=== PATIENT | female | born 1970 | race Caucasian/White ===

== ENCOUNTER → 2019-02-23 14:11 | Outpatient (CLI) | payer OTHER, SELFPAY ==
[2019-02-28 14:39] LABS: HPV Reflexed? NOT INDICATED
== END ==
PROVIDERS: Visit Provider Obstetrics & Gynecology
DX: Z12.4 Encounter for screening for malignant neoplasm of cervix (principal)
CPT/HCPCS: 88175; G0145

== ENCOUNTER → 2020-06-18 09:47 | Outpatient (CLI) | payer OTHER, SELFPAY ==
[2016-03-03 10:50] VITALS: BMI 27.6
== END ==
PROVIDERS: PCP Family Medicine; Referring Provider Nurse Practitioner Adult Health; Visit Provider Nurse Practitioner Adult Health
DX: N39.0 Urinary tract infection, site not specified (principal)
CPT/HCPCS: 87086

== ENCOUNTER → 2021-03-26 07:02 | Outpatient (CLI) | payer BC, SELFPAY ==
--- NOTE | 2021-03-26 07:06 | BI_ITS ---
MAMMOGRAPHY - BILATERAL SCREENING REASON FOR EXAM: Female, 50 years old. Routine annual screening examination. PERTINENT HISTORY: Non-contributory. TECHNIQUE: Digital bilateral breast wiliam (3D mammographic acquisition) in the CC and MLO projections. 2-D mediolateral oblique (MLO) and craniocaudad (CC) views of both breasts were obtained. CAD: Full Field Digital Mammography with Computer Added Detection was performed. COMPARISON: Comparison is made with prior abdomen examination dated 04/04/2013. FINDINGS: Breast Composition: The breasts are heterogeneously dense, which may obscure small masses. There is a 4.2 cm x 4.1 cm well-defined nodule in the upper lateral aspect of the left breast. There is also evidence of a 1.4 cm x 1.4 cm nodule in the lateral retroareolar region of the right breast. Correlation with ultrasound is recommended for further evaluation. No other significant abnormalities are identified. BI/SCRN MAMM (CAD)W/WILIAM BILAT IMPRESSION: Bilateral breast nodules as described more prominent in the left breast. Correlation with ultrasound is recommended. ASSESSMENT CATEGORY: BIRADS Category 0: Incomplete. Need additional imaging evaluation. A letter regarding these results will be sent to the patient by the facility within 30 days. Approximately 10% of breast cancers are not detected by mammography. A normal mammogram should not delay biopsy of a clinically suspicious abnormality. [id number] Electronically Signed: Rashaad Berman MD at 14:25 EDT , Service support ,
== END ==
PROVIDERS: PCP Family Medicine; Referring Provider Obstetrics & Gynecology; Visit Provider Obstetrics & Gynecology
DX: Z12.31 Encounter for screening mammogram for malignant neoplasm of breast (principal)
CPT/HCPCS: 77063; 77067

== ENCOUNTER → 2021-03-27 13:53 | Outpatient (CLI) | payer BC, SELFPAY ==
--- NOTE | 2021-03-27 13:55 | US_ITS ---
STUDY: ULTRASOUND BREAST - RIGHT REASON FOR EXAM: Female, 50 years old. Abnormal screening mammogram. TECHNIQUE: Axial and longitudinal images of the RIGHT breast were performed with a high resolution ultrasound transducer. # OF IMAGES: 19 COMPARISON: Comparison is made with prior mammogram dated 03/26/2021. FINDINGS: RIGHT Breast: The mammographic abnormality corresponds to a 1.3 cm x 1.6 cm x 1.1 cm cyst at the 8 o''clock position of the breast at 2 cm from the nipple. IMPRESSION: The mammographic abnormality corresponds to a 1.3 cm x 1.6 cm x 1.1 cm cyst at the interclavicular position of the breast at 2 cm from the nipple. ASSESSMENT CATEGORY: BIRADS Category 2: Benign. A letter regarding these results will be sent to the patient by the facility within 30 days. Electronically Signed: Rashaad Berman MD at 14:55 EDT , Service support , STUDY: ULTRASOUND BREAST - LEFT REASON FOR EXAM: Female, 50 years old. Abnormal screening mammogram. TECHNIQUE: Axial and longitudinal images of the LEFT breast were performed with a high resolution ultrasound transducer. # OF IMAGES: 19 COMPARISON: Comparison is made with prior mammogram dated 03/26/2021. FINDINGS: LEFT Breast: The mammographic abnormality corresponds to a 3.7 cm x 3.3 cm x 1.6 cm cyst at the 1 o''clock position of the breast at 1 cm from the nipple US/Breast Limited Unilateral IMPRESSION: The mammographic abnormality corresponds to a 3.7 cm x 3.3 cm x 1.6 cm cyst at the 1 o''clock position of the breast at 1 cm from nipple. ASSESSMENT CATEGORY: BIRADS Category 2: Benign. A letter regarding these results will be sent to the patient by the facility within 30 days. Electronically Signed: Rashaad Berman MD at 14:56 EDT , Service support ,
== END ==
LOC: OPUS 13:53
PROVIDERS: PCP Family Medicine; Referring Provider Obstetrics & Gynecology; Visit Provider Obstetrics & Gynecology
DX: N63.21 Unspecified lump in the left breast, upper outer quadrant (principal); N63.41 Unspecified lump in right breast, subareolar
CPT/HCPCS: 76642

== ENCOUNTER 2021-10-12 12:21 | Emergency (ER) | payer BC, SELFPAY ==
[2021-10-12 12:22] VITALS: BP 123/84; PULSE 108; RESP 16; TEMP 38; O2SAT 99; BMI 25.9
--- NOTE | 2021-10-12 12:57 | RAD_ITS ---
STUDY: X-RAY CHEST REASON FOR EXAM: Female, 50 years old patient with fever and cough TECHNIQUE: Single AP portable view of the chest. COMPARISON: 01/04/2014. FINDINGS: Lungs are hyperexpanded. There is diffuse interstitial thickening present in both lungs. There is no demonstrated pleural abnormality. Normal size heart. Normal mediastinum and jeffry. There is prominence of the pulmonary hilar arteries without peripheral pulmonary vascular congestion. Normal visualized aortic arch and descending thoracic aorta. Normal visualized thoracic spine. Normal visualized ribs, clavicles, and shoulders. There is no demonstrated abnormality of the visualized soft tissue structures of the upper abdomen. RAD/Chest 1 View (Portable) IMPRESSION: Findings suggest acute exacerbation of reactive airway disease and/or viral infection. Electronically Signed: Rachelle Flaherty MD at 14:46 EST , Service support ,
--- NOTE | 2021-10-12 12:57 | CT_ITS ---
STUDY: CT BRAIN WITHOUT CONTRAST REASON FOR EXAM: Female, 50 years old patient with headache. RADIATION DOSAGE (If Supplied By Facility): CTDIvol = ( 44.99 ) mGy, DLP = ( 779.24 ) mGycm TECHNIQUE: Transaxial CT imaging of the brain was performed without administration of intravenous contrast material. Multiplanar reformations are submitted for interpretation. Individualized dose optimization techniques were used for this CT. COMPARISON: No relevant priors. FINDINGS: Normal soft tissue structures. Normal calvarium. Normal size ventricles and extra-axial spaces for the patient''s age. Normal white matter tracts of the cerebral hemispheres. Normal basal ganglia and thalami. Normal brainstem. Normal cerebellum. There is no intracranial hemorrhage. There are no findings of an acute ischemic infarction. There is bubbly mucus in the sphenoid sinuses suggesting acute infection. There is also opacification several ethmoid sinuses. There is opacification of a hypoplastic left frontal sinus. There is mucosal thickening of the left maxillary sinus. CT/Brain/Head without Contrast IMPRESSION: 1. Moderately severe paranasal sinus disease. 2. No CT evidence of acute intracranial hemorrhage. Electronically Signed: Rachelle Flaherty MD at 15:36 EST , Service support ,
--- NOTE | 2021-10-12 12:58 | CT_ITS ---
STUDY: CT ABDOMEN AND PELVIS WITH CONTRAST REASON FOR EXAM: Female, 50 years old patient with fever and right-sided flank pain. RADIATION DOSAGE (If Supplied By Facility): CTDIvol = ( 17.25 ) mGy, DLP = ( 1678.82 ) mGycm TECHNIQUE: Transaxial images were obtained from the dome of the diaphragm to the symphysis pubis without oral contrast. 100 mL of IV Isovue-370 was administered. Sagittal and coronal images were reconstructed. Individualized dose optimization techniques were used for this CT. COMPARISON: CT abdomen and pelvis dated 11/18/2015. FINDINGS: There is small lucency in the right lower lobe that may represent small pneumatocele. Lung bases are otherwise clear. The visualized portions of the heart are within normal limits. There is a small cyst left lobe liver measuring approximately 1.8 x 1.4 x 1.3 cm. Normal gallbladder and extrahepatic biliary system. Normal spleen. Normal pancreas. Normal bilateral adrenal glands. There is severe right-sided hydronephrosis and moderate hydroureter. There is transition in caliber of the mid ureter suggesting a possible stricture. No ureteral calculi are visualized. There is enhancement of the castle of the right renal pelvis and ureter suggesting associated pyelitis and ureteritis. Delayed images document prompt excretion of contrast by the left kidney. There is some delayed excretion of contrast by the right kidney. There are nonobstructing left-sided renal calculi which measure up to 6.4 mm. Normal visualized stomach. There is no obvious dilated bowel, ascites or pneumoperitoneum. Small bowel has a grossly normal appearance. There is stool visible throughout the colon with scattered diverticula. The retrocecal appendix is visualized and appears normal. Normal abdominal aorta. There is venous distention of the inferior vena cava (IVC). Normal retroperitoneum. Normal urinary bladder. Normal visualized uterus. Normal abdominal wall. Normal osseous structures. CT/Abdomen/Pelvis W IV Cont ONLY IMPRESSION: 1. Findings suggest severe right-sided hydronephrosis and moderate hydroureter possibly secondary to ureteral stricture with associated acute inflammation and/or infection. 2. Nonobstructing left-sided renal calculus. Electronically Signed: Rachelle Flaherty MD at 15:32 EST , Service support ,
--- NOTE | 2021-10-12 13:02 | EX.ED.DYSGE1 ---
HPI History of Present Illness Chief Complaint: Flank Pain Informant: patient Narrative Narrative: Patient is a 50-year-old female with history of kidney stones, follows with Dr. Prabhakar, presenting with fever and flank pain. Patient states she started having sharp stabbing pain in her right flank that radiates around to her abdomen on , 2 days ago. She states the pain has been constant. She started taking ibuprofen and oxycodone she had leftover with no relief of her symptoms. Yesterday she started having sharp stabbing pain behind her left ear. States that is sharp for a second at a time but is been constant. She never had pain like this before. She does not state nausea but no vomiting. Denies any vision changes. States he is chronically constipated but denies any change in bowel habits. Patient states her fevers been as high as 100.4. Fever started last night. She notes she works in a [employer] and had 2 - test yesterday. Patient denies any cough or difficulty breathing. She reports she has had some mild pain underneath her left ribs intermittently. No other complaints at this time. [facility] Medical History (Updated 10/12/21 @ 17:[address] Sarahi Escoto DO) Hx of renal impairment Personal history of kidney stones Home Medications citalopram 20 mg PO DAILY 10/12/21 [History Last Taken Unknown] trazodone 100 mg PO QHS 10/12/21 [History Last Taken Unknown] Allergy/AdvReac Type Severity Reaction Status Date / Time meperidine HCl [From Demerol] Allergy Other Verified 10/12/21 13:29 morphine Allergy Rash Verified 10/12/21 13:29 oxycodone HCl [From Percocet] AdvReac Nausea Verified 10/12/21 13:29 Surgical History (Updated 10/12/21 @ 13:22 by Annabella Barcenas) History of Social History Smoking Status: Never smoker ROS ROS ED Constitutional Constitutional ED: Reports chills and fever(s) Eyes Eyes: Denies blurry vision or change in vision ENT ENT ED: Reports ear pain left; Denies rhinorrhea or sore throat Cardiovascular Cardiovascular: Denies chest pain or palpitations Respiratory/Chest Respiratory/Chest: Denies cough or dyspnea Gastrointestinal Gastrointestinal: Reports abdominal pain, constipation and nausea; Denies vomiting Genitourinary Genitourinary ED: Denies dysuria, hematuria or urinary frequency Musculoskeletal Musculoskeletal: Reports back pain and myalgias; Denies arthralgias Integumentary Denies rash Neurologic Neurologic: Reports headache(s); Denies paresthesias or weakness Psychiatric Psychiatric: Reports anxiety; Denies depression EXAM Physical Exam Const Vital Signs: 10/12/21 12:22 10/12/21 14:56 10/12/21 15:02 Temperature 100.4 F H 99.8 F H Temperature Source Temporal Oral Pulse Rate 108 H 104 H Respiratory Rate 16 18 Blood Pressure 123/84 H 128/73 H Blood Pressure Mean 97 91 Pulse Ox 99 97 Oxygen Delivery Method Room Air Room Air Positive well nourished and well developed Constitutional Narrative: Patient is tearful and in acute distress secondary to pain General Appearance ED: well developed HEENT Reports TM's clear and moist mucous membranes HEENT Narrative: Patient is a pinpoint area of tenderness inferior to the left upper rib. It is not over the mastoid area. There is no associated fluctuance or skin abnormalities with it. Negative for trauma Tympanic Membrane ED: Yes TM's clear Eyes PERRL and EOMs intact bilaterally Neck supple Neck Narrative: No nuchal rigidity. No midline tenderness. Normal range of motion. Chest Wall inspection of chest normal and palpation of chest normal Resp normal respiratory effort and clear to auscultation bilaterally Cardio regular rate, regular rhythm and no murmurs GI normal to inspection, nondistended, normoactive bowel sounds and non-tender Palpation: soft Back/Spine no CVA tenderness Back/Spine Narrative: Mild tenderness palpation of the bilateral lower lumbar spine Thoracic Spine / Upper Back: Negative for thoracic spinal tenderness Lumbar Spine / Lower Back: Negative for lumbar spinal tenderness Extremity normal to inspection Neuro oriented x3 and CN's II-XII intact bilaterally Sensorium / Orientation: alert Motor Exam: Negative for general weakness Psych mental status grossly normal Mood & Affect: anxious Skin no rashes or lesions noted and no wounds MDM MDM MDM Narrative Medical decision making narrative: Patient is a 50-year-old female presenting with fever and severe right-sided flank pain. She is also has a headache. Patient appears quite uncomfortable. Patient is febrile, tachycardic and has a leukocytosis of 14.9. Urine is highly concerning for infection. Her creatinine is at her baseline it is 1.16. Potassium is mildly low at 3.1. Cultures of blood and urine are pending. CT shows hydronephrosis with concerns of pyelonephritis and ureteral stricture. This is likely the cause of her infection and pain. Covid test is negative. Head CT obtained as patient is having area of pain behind her ear. Is not consistent with mastoiditis. It is too high and there is no associated erythema or tenderness of the mastoid bone. CT does show moderately severe paranasal sinus disease. We currently do not have IR or urology so I do think patient benefit from transfer to a hospital with these facilities. Patient might either require stenting for her ureteral stricture or a percutaneous nephrostomy tube. She started on IV Rocephin in the emergency room. She is given multiple dose of IV Dilaudid for pain control. Patient is given a liter of IV fluid. She does not meet criteria for septic shock and is not given a 30 cc/kg fluid bolus. Patient is transferred to [facility]. She accepted by Dr. Krause, urology. She will go to the ER. Report is given to Dr. Preciado in the ER. Lab Data Attestation: I reviewed the patient's lab results. Labs: Laboratory Results - last 24 hr 10/12/21 10/12/21 10/12/21 13:00 13:00 13:20 WBC 14.9 H RBC 4.60 Hgb 13.7 Hct 41.9 MCV 91.1 MCH 29.8 MCHC 32.7 RDW Std Deviation 41.1 RDW Coeff of Dion 12.5 Plt Count 262 MPV 11.5 Immature Gran % (Auto) 0.400 Neut % (Auto) 89.6 H Lymph % (Auto) 5.0 L Whitley % (Auto) 4.6 Eos % (Auto) 0.1 Baso % (Auto) 0.3 Absolute Neuts (auto) 13.4 H Absolute Lymphs (auto) 0.75 L Nucleated RBC % 0 Sodium 139 Potassium 3.1 L Chloride 105 Carbon Dioxide 25.0 Anion Gap 9 BUN 9 Creatinine 1.16 H Estim Creat Clear Calc 51.22 Est GFR (MDRD) Af Amer 64 Est GFR (MDRD) Non-Af 53 L BUN/Creatinine Ratio 7.8 L Glucose 157 H Lactic Acid 2.0 Calcium 9.1 Total Bilirubin 0.30 AST 14 L ALT 28 Alkaline Phosphatase 68 Total Protein 7.4 Albumin 3.3 Globulin 4.1 Albumin/Globulin Ratio 0.8 L Lipase 273 Urine Color Urine Clarity Urine pH Ur Specific [place] Urine Protein Urine Glucose (UA) Urine Ketones Urine Occult Blood Urine Nitrite Urine Bilirubin Urine Urobilinogen Ur Leukocyte Esterase Urine RBC Urine WBC Ur Squamous Epith Cells Urine Bacteria Urine Mucus Urine Test 10/12/21 10/12/21 13:50 13:50 WBC RBC Hgb Hct MCV MCH MCHC RDW Std Deviation RDW Coeff of Dion Plt Count MPV Immature Gran % (Auto) Neut % (Auto) Lymph % (Auto) Whitley % (Auto) Eos % (Auto) Baso % (Auto) Absolute Neuts (auto) Absolute Lymphs (auto) Nucleated RBC % Sodium Potassium Chloride Carbon Dioxide Anion Gap BUN Creatinine Estim Creat Clear Calc Est GFR (MDRD) Af Amer Est GFR (MDRD) Non-Af BUN/Creatinine Ratio Glucose Lactic Acid Calcium Total Bilirubin AST ALT Alkaline Phosphatase Total Protein Albumin Globulin Albumin/Globulin Ratio Lipase Urine Color Yellow Urine Clarity Cloudy Urine pH 8.0 Ur Specific [place] 1.015 Urine Protein 30 H Urine Glucose (UA) Normal Urine Ketones Negative Urine Occult Blood 50 H Urine Nitrite Positive H Urine Bilirubin Negative Urine Urobilinogen Normal Ur Leukocyte Esterase 500 H Urine RBC 0-5 SEEN Urine WBC 5-10 SEEN Ur Squamous Epith Cells 0-5 SEEN Urine Bacteria 3+ Urine Mucus 0 SEEN Urine Test Negative Radiography Chest X-Ray - ED: 1 View, Read by ED Physician, Read by Radiologist and No Infiltrates Diagnostic Testing: Clinical Impression(s) from Imaging Studies Brain CT 10/12/21 12:57 IMPRESSION: 1. Moderately severe paranasal sinus disease. 2. No CT evidence of acute intracranial hemorrhage. Electronically Signed: Rachelle Flaherty MD at 15:36 EST , Service support , Chest X-Ray 10/12/21 12:57 IMPRESSION: Findings suggest acute exacerbation of reactive airway disease and/or viral infection. Electronically Signed: Rachelle Flaherty MD at 14:46 EST , Service support , Abdomen/Pelvis CT 10/12/21 12:58 IMPRESSION: 1. Findings suggest severe right-sided hydronephrosis and moderate hydroureter possibly secondary to ureteral stricture with associated acute inflammation and/or infection. 2. Nonobstructing left-sided renal calculus. Electronically Signed: Rachelle Flaherty MD at 15:32 EST , Service support , Discharge Plan Triage Chief Complaint: Flank Pain ED Provider: Sarahi Escoto Dx/Rx/DC Orders Clinical Impression: Pyelonephritis of right kidney, Hydronephrosis, Sepsis, Headache, Sinusitis, Intractable abdominal pain, Renal colic on right side Prescriptions: No Action citalopram 20 mg tablet 20 mg PO DAILY RF: 0 trazodone 100 mg tablet 100 mg PO QHS RF: 0 Primary Care Provider: Haritha Sanchez NP Referrals: Haritha Sanchez NP, QUALITY [employer]ER-C [Primary Care Provider] - Disposition Disposition: Transfer to Another Type HCF Discharge Location: [facility]
[2021-10-12] MEDS: 0.9% Normal Saline 1,000 ML 1000 ML IV (13:23)
[2021-10-12] MEDS: Ondansetron 4 MG/2 ML Vial IV ×2 (13:24→16:58)
[2021-10-12] MEDS: HYDROmorphone 1 MG/ML Syringe 0.5 MG IV (13:24)
[2021-10-12 13:33] LABS: Absolute Lymphocyte Count 0.75 X10^3/uL (0.83-4.51); Absolute Neutrophil Count 13.4 X10^3/uL (2.0-7.7); Basophil# 0.05 X10^3/uL; Basophil% 0.3 % (0-1); Eosinophil# 0.01 X10^3/uL; Eosinophils% 0.1 % (0-5); Hematocrit 41.9 % (37-47); Hemoglobin 13.7 g/dL (12.0-15.0); Lymphocyte # 0.75 X10^3/ul (0.83-4.51); Mean Corp Hgb Conc 32.7 g/dL (32-36); Mean Corpuscular Hgb 29.8 pg (27.0-32.0); Mean Corpuscular Volume 91.1 fL (81-99); Mean Platelet Vol. 11.5 fl (6.2-12.0); Monocyte# 0.68 X10^3/uL; Monocyte% 4.6 % (0-10); NRBC Flagged by Analyzer 0 % (0-5); Neutrophil # 13.35 X10^3/uL (2.7-7.7); Neutrophil % 89.6 % (47-70); Platelet Count 262 K/mm3 (150-450); RBC Distribution Width CV 12.5 % (11.6-14.6); RBC Distribution Width SD 41.1 fl (35.1-43.9); White Blood Count 14.9 K/mm3 (4.4-11.0)
[2021-10-12 13:48] LABS: ALB/GLOB Ratio 0.8 RATIO (0.9-2.4); AST(SGOT) 14 U/L (15-37); Alanine Aminotransfer ALT/SGPT 28 U/L (13-56); Albumin, Serum 3.3 g/dL (3.2-5.0); Alkaline Phosphatase 68 U/L (45-117); Anion Gap 9 (5-15); BUN 9 mg/dL (7-18); BUN/Creat Ratio 7.8 RATIO (10-20); Calcium,Total 9.1 mg/dL (8.5-10.1); Chloride 105 mmol/L (98-107); Creatinine, Serum 1.16 mg/dL (0.55-1.02); EST Glomerular Filtration Rate 53 mL/min (>60); Est Glom Filt Rate - Afr Amer 64 mL/min (>60); Estimated Creatinine Clearance 51.22 ml/min; Globulin 4.1 g/dL (2.2-4.2); Glucose 157 mg/dL (74-106); Lipase 273 U/L (73-393); Potassium 3.1 mmol/L (3.5-5.1); Protein, Total 7.4 g/dL (6.4-8.2); Sodium Level 139 mmol/L (136-145)
[2021-10-12 13:56] LABS: Mucous, Urine 0 SEEN /hpf (<or=2+)
[2021-10-12 13:59] LABS: Color, Urine Yellow (Yellow); Glucose, Dipstick Normal (Normal); Internal QC Validated? YES +Cl - CLEAR BKGD; Ketone-Dipstick Negative (Negative); Leukocyte Esterase-Dipstick 500 /ul (Negative); Nitrite-Dipstick Positive (Negative); Occult Blood-Urine 50 /ul (Negative); Pregnancy, Urine Negative Negative; Protein-Dipstick 30 mg/dl (Negative); Specific Gravity, Urine 1.015 (1.002-1.030); Urine Bilirubin Dipstick Negative (Negative); Urine Clarity Cloudy (Clear); Urine Urobilinogen Normal (Normal)
[2021-10-12 14:07] LABS: Bacteria 3+ /hpf (None Seen); Red Blood Cells-Urine 0-5 SEEN /hpf (0-5); Squamous Epithelial Cells - UA 0-5 SEEN /hpf (5-10); White Blood Cells 5-10 SEEN /hpf (0-5)
[2021-10-12] MEDS: HYDROmorphone 0.5 MG/0.5 ML SYRINGE IV (14:28)
[2021-10-12 14:56] VITALS: TEMP 37.7
[2021-10-12 15:02] VITALS: BP 128/73; PULSE 104; RESP 18; O2SAT 97
[2021-10-12] MEDS: HYDROmorphone 1 MG/ML Syringe IV (16:11)
[2021-10-12] MEDS: Ketorolac 15 MG/ML Vial IV (16:13)
[2021-10-12] MEDS: Ceftriaxone 1 GM/50 ML BAG IV (16:30)
[2021-10-12 17:26] VITALS: BP 122/60; PULSE 106; RESP 16; TEMP 38.6; O2SAT 99
[2021-10-12 17:29] LABS: Reflex Lactate? Y
== END 2021-10-12 17:27 | disposition other institution (70) ==
PROVIDERS: Emergency Provider Emergency Medicine; PCP Nurse Practitioner Family
DX: N13.6 Pyonephrosis (principal); J32.9 Chronic sinusitis, unspecified; Z87.442 Personal history of urinary calculi
CPT/HCPCS: 70450; 71045; 74177; 80053; 81001; 81025; 83605; 83690; 85025; 87040; 87426; 96361; 96365; 96375; 96376; 99285; J7050; Q9967; A4216; J2405

== ENCOUNTER 2021-10-29 12:50 | Emergency (ER) | payer BC, SELFPAY ==
[2021-10-29 12:51] VITALS: BP 99/81; PULSE 103; RESP 22; TEMP 35.5; O2SAT 99; BMI 25.7
[2021-10-29 13:25] VITALS: BP 99/81; PULSE 103; RESP 22; TEMP 35.5; O2SAT 99
--- NOTE | 2021-10-29 13:25 | EKG12_ITS ---
Test Reason : Blood Pressure : / mmHG Vent. Rate : 095 BPM Atrial Rate : 095 BPM P-R Int : 144 ms QRS Dur : 092 ms QT Int : 378 ms P-R-T Axes : 068 046 075 degrees QTc Int : 475 ms Normal sinus rhythm Normal ECG Confirmed by JOSE L OLIVEIRA, PILY ([id number]), editor publications ASHLIE CHAPA ([id number]) on 10/30/2021 11:44:21 AM Referred By: MIGUEL Confirmed By:PILY DOMINGO MD
--- NOTE | 2021-10-29 13:26 | CT_ITS ---
STUDY: CT ABDOMEN AND PELVIS WITHOUT CONTRAST REASON FOR EXAM: Female, 51 years old. Right flank pain. Nausea. Right-sided double-J stent catheter is in situ. RADIATION DOSAGE (If Supplied By Facility): CTDIvol = ( 8.12 ) mGy, DLP = ( 387.25 ) mGycm TECHNIQUE: Transaxial images were obtained from the dome of the diaphragm to the symphysis pubis without oral contrast, and without intravenous contrast. Sagittal and coronal images were reconstructed. Individualized dose optimization techniques were used for this CT. COMPARISON: Comparison is made with prior examination dated 10/12/2021. FINDINGS: The visualized lung bases are unremarkable. The visualized portions of the heart are within normal limits. There is a 1.7 cm cyst in the peripheral aspect of the left lobe of the liver. This is unchanged. Normal gallbladder and extrahepatic biliary system. Normal spleen. Normal pancreas. Normal bilateral adrenal glands. A right-sided double-J stent catheter is seen with the proximal tip in the superior pole calyx of the right kidney and the distal tip in the urinary bladder. There is a marked degree of right sided hydronephrosis and right hydroureter. A punctate calculus is seen in the lateral superior pole calyx of the right kidney. Mild degree of the right perinephric and periaortic ureteric stranding. Punctate calcification is seen in the midportion of the left kidney. There is a 5 mm nonobstructive calculus in the posterior calyx of the upper pole of the left kidney. There is a small hiatal hernia. Normal small intestine. Normal colon. The appendix is visualized and appears normal. Normal abdominal aorta. Normal inferior vena cava. Normal retroperitoneum. Normal urinary bladder. There is a small umbilical hernia containing fat. Normal osseous structures. CT/Abdomen/Pelvis without Cont IMPRESSION: Marked in degree of right hydronephrosis and right hydroureter. A right-sided double-J stent catheter is seen. Stable nonobstructive bilateral intrarenal calculi. Electronically Signed: Rashaad Berman MD at 15:08 EST , Service support ,
--- NOTE | 2021-10-29 13:28 | EX.ED.DYSGE1 ---
HPI History of Present Illness Chief Complaint: Complaint Narrative Narrative: Patient presents with right flank pain fever and generalized weakness. She had a nephrostomy tube placed a few weeks ago, now she has a stent for some sort of ureteral obstruction from multiple kidney stones. She has some abdominal pain some nausea associated with this. Temperature was a high of 101 last night. [facility] Medical History Hx of renal impairment Personal history of kidney stones Home Medications citalopram 20 mg PO DAILY 10/12/21 [History Last Taken Unknown] trazodone 100 mg PO QHS 10/12/21 [History Last Taken Unknown] Allergy/AdvReac Type Severity Reaction Status Date / Time meperidine HCl [From Demerol] Allergy Other Verified 10/29/21 12:51 morphine Allergy Rash Verified 10/29/21 12:51 oxycodone HCl [From Percocet] AdvReac Nausea Verified 10/29/21 12:51 Surgical History History of Social History Smoking Status: Never smoker ROS ROS ED ROS Narrative Past medical history: Reviewed, mostly multiple kidney stones in the past Medications: Reviewed Social history: Noncontributory Review of systems: All systems negative except as indicated General: Fever as in HPI Eyes: No visual changes ENT: No upper airway congestion, normal voice Neck: No neck pain Cardiovascular: No chest pain Respiratory: No shortness of breath or cough Gastrointestinal: Flank pain and abdominal pain as in HPI Genitourinary: As in HPI Musculoskeletal: Denies myalgias no difficulty with ambulation Skin: No rash Neurological: No memory loss, confusion or any focal weakness Psych: No recent behavioral changes Hematologic: No easy bleeding or easy bruising EXAM Physical Exam Narrative Exam Narrative: Physical exam General: Patient appears quite uncomfortable Head: Normocephalic, Atraumatic Eyes: Conjunctiva not pale ENT: Moist mucous membranes Neck: Supple, Nontender, No lymphadenopathy Cardiovascular: Regular rate, Regular rhythm Respiratory: No distress, CTA bilaterally Abdomen: Soft, there is tenderness to the right lower quadrant and right CVA region. The region of the nephrostomy tube does not seem to be infected. There is multiple sites on the abdomen from prior anticoagulant injections. No obvious big hematoma. Back: CVA tenderness as above otherwise no spinal tenderness Extremities: Nontender, No edema Skin: Normal color, No rash Neurological: Alert, Normal Strength, Normal Sensation Const Vital Signs: 10/29/21 12:51 10/29/21 13:25 Temperature 96 F L 96 F L Temperature Source Temporal Temporal Pulse Rate 103 H 103 H Respiratory Rate 22 H 22 H Blood Pressure 99/81 H 99/81 H Blood Pressure Mean 87 87 Pulse Ox 99 99 Oxygen Delivery Method Room Air Room Air MDM MDM MDM Narrative Medical decision making narrative: Patient is tachycardic she is in pain and she has a fever I will do a septic work-up. I do not have any results back I will turn the patient over to the oncoming physician. Discharge Plan Triage Chief Complaint: Complaint ED Provider: Norbert Fields Dx/Rx/DC Orders Clinical Impression: Ureteral obstruction, Fever Prescriptions: No Action citalopram 20 mg tablet 20 mg PO DAILY RF: 0 trazodone 100 mg tablet 100 mg PO QHS RF: 0 Primary Care Provider: Haritha Sanchez NP Referrals: Haritha Sanchez NP, ASSISTANT SCIENTIST-C [Primary Care Provider] -
--- NOTE | 2021-10-29 13:33 | NURSING ---
NO OLD EKGS
[2021-10-29] MEDS: Ondansetron 4 MG/2 ML Vial IV (13:55)
[2021-10-29] MEDS: 0.9% Normal Saline 1,000 ML 1000 ML IV (13:55)
[2021-10-29] MEDS: HYDROmorphone 1 MG/ML Syringe IV (13:56)
[2021-10-29 14:49] LABS: Absolute Lymphocyte Count 0.75 X10^3/uL (0.83-4.51); Absolute Neutrophil Count 15.2 X10^3/uL (2.0-7.7); Basophil# 0.06 X10^3/uL; Basophil% 0.4 % (0-1); Eosinophil# 0.06 X10^3/uL; Eosinophils% 0.4 % (0-5); Hematocrit 40.9 % (37-47); Hemoglobin 13.4 g/dL (12.0-15.0); Lymphocyte # 0.75 X10^3/ul (0.83-4.51); Lymphocyte % 4.4 % (19-41); Mean Corp Hgb Conc 32.8 g/dL (32-36); Mean Corpuscular Volume 91.7 fL (81-99); Mean Platelet Vol. 11.6 fl (6.2-12.0); Monocyte# 0.95 X10^3/uL; Monocyte% 5.6 % (0-10); NRBC Flagged by Analyzer 0 % (0-5); Neutrophil # 15.16 X10^3/uL (2.7-7.7); Neutrophil % 88.6 % (47-70); Platelet Count 368 K/mm3 (150-450); RBC Distribution Width CV 12.7 % (11.6-14.6); RBC Distribution Width SD 42.5 fl (35.1-43.9); Red Blood Count 4.46 M/mm3 (4.2-5.4); White Blood Count 17.1 K/mm3 (4.4-11.0)
[2021-10-29 15:01] LABS: ALB/GLOB Ratio 0.8 RATIO (0.9-2.4); AST(SGOT) 9 U/L (15-37); Alanine Aminotransfer ALT/SGPT 22 U/L (13-56); Albumin, Serum 3.3 g/dL (3.2-5.0); Alkaline Phosphatase 63 U/L (45-117); Anion Gap 9 (5-15); BUN 15 mg/dL (7-18); BUN/Creat Ratio 15.3 RATIO (10-20); Calcium,Total 9.2 mg/dL (8.5-10.1); Chloride 107 mmol/L (98-107); Creatinine, Serum 0.98 mg/dL (0.55-1.02); EST Glomerular Filtration Rate 64 mL/min (>60); Est Glom Filt Rate - Afr Amer 77 mL/min (>60); Estimated Creatinine Clearance 59.96 ml/min; Globulin 4.3 g/dL (2.2-4.2); Glucose 126 mg/dL (74-106); Potassium 3.2 mmol/L (3.5-5.1); Protein, Total 7.6 g/dL (6.4-8.2); Sodium Level 139 mmol/L (136-145)
[2021-10-29 15:18] VITALS: BP 137/68; PULSE 81; RESP 18; TEMP 36.9; O2SAT 100
[2021-10-29] MEDS: Ceftriaxone 1 GM/50 ML BAG IV (15:22)
[2021-10-29 15:23] LABS: Lactic Acid 1.1 mmol/L (0.4-1.9)
[2021-10-29 15:26] LABS: Bacteria 0 SEEN /hpf (None Seen); Mucous, Urine 0 SEEN /hpf (<or=2+); Red Blood Cells-Urine 0 SEEN /hpf (0-5); Squamous Epithelial Cells - UA 0 SEEN /hpf (5-10)
--- NOTE | 2021-10-29 15:46 | NURSING ---
DR ANJELICA BREWER
[2021-10-29 15:56] LABS: Color, Urine SEE COMMENT BELOW (Yellow); Glucose, Dipstick Normal (Normal); Ketone-Dipstick 50 mg/dl (Negative); Leukocyte Esterase-Dipstick 500 /ul (Negative); Nitrite-Dipstick Positive (Negative); Occult Blood-Urine 250 /ul (Negative); Protein-Dipstick 500 mg/dl (Negative); Urine Bilirubin Dipstick 6 mg/dL (Negative); Urine Clarity Turbid (Clear); Urine Urobilinogen 4 mg/dl (Normal)
[2021-10-29 16:00] VITALS: BP 119/103; PULSE 91; RESP 18; TEMP 36.9; O2SAT 95
--- NOTE | 2021-10-29 16:00 | NURSING ---
DR ANJELICA BREWER
[2021-10-29 16:02] LABS: White Blood Cells >100 SEEN /hpf (0-5)
[2021-10-29 17:32] VITALS: BP 138/68; PULSE 80; RESP 16; O2SAT 99
== END 2021-10-29 17:33 | disposition home or self-care (01) ==
PROVIDERS: Emergency Medicine; Emergency Provider Emergency Medicine; PCP Nurse Practitioner Family; Visit Provider Emergency Medicine
DX: N13.6 Pyonephrosis (principal)
CPT/HCPCS: 36415; 74176; 80053; 81001; 83605; 85025; 87040; 87077; 87086; 87088; 87186; 93005; 96361; 96365; 96375; 99282; J7030; J7050; A4216; J2405

== ENCOUNTER 2021-10-31 12:07 | Inpatient (IN) | payer BC, SELFPAY ==
[2021-10-31 11:23] VITALS: BMI 25.7
[2021-10-31 11:26] VITALS: BP 147/71; PULSE 88; RESP 18; TEMP 36.9; O2SAT 96
--- NOTE | 2021-10-31 11:57 | PCS.PANDOC ---
PANDEMIC DOCUMENTATION INITIATED: Date: 06/03/2021 Time: 190
--- NOTE | 2021-10-31 12:13 | PCM.HP.BLA ---
History and Physical Patient returns, 51-year-old female with a history of a right ureteral stricture, she underwent a right ureteral implant about 10 years ago at [facility]. She been doing well for long-time last time I saw in 2015 CT scan demonstrated some mild right hydronephrosis which is chronic. Then this September she's had a very difficult time she it up in the hospital with a bad infection was transferred to the outside hospital and required a nephrostomy tube. We removed the nephrostomy tube last week and surgery but a stent but she's not been doing well did have a lot of pain nausea vomiting so today been admitted to the hospital I reviewed the CAT scan for about two days ago from the ER and her right kidney is extremely swollen and she is hydro-ureteral the process. The right stent is a good position. ALLERGIES: Demerol Morphine Sulfate MEDICATIONS: Nitrofurantoin [place]-Macro 100 mg capsule 1 capsule PO Daily Celexa 10 mg tablet Fluconazole 150 mg tablet 1 tablet PO Q1WK Notes: Per patient, no pneumonia shot Had COVID Vaccine IMMUNIZATIONS: None VITAL SIGNS: 10/31/2021 10:35 AM Weight 150 lb / 68.04 kg BP 126/80 mmHg PHYSICAL EXAM: Constitutional: Well-nourished. No physical deformities. Normally developed. Good grooming. Neck: Neck symmetrical, not swollen. Normal tracheal position. Respiratory: No labored breathing, no use of accessory muscles. Cardiovascular: Normal temperature, normal extremity pulses, no swelling, no varicosities. Lymphatic: No enlargement of neck, axillae, groin. Skin: No paleness, no jaundice, no cyanosis. No lesion, no ulcer, no rash. Neurologic / Psychiatric: Oriented to time, oriented to place, oriented to person. No depression, no anxiety, no agitation. Gastrointestinal: No mass, no tenderness, no rigidity, non obese abdomen. Eyes: Normal conjunctivae. Normal eyelids. Ears, Nose, Mouth, and Throat: Left ear no scars, no lesions, no masses. Right ear no scars, no lesions, no masses. Nose no scars, no lesions, no masses. Normal hearing. Normal lips. Musculoskeletal: Normal gait and station of head and neck. COMPLEXITY OF DATA: Source Of History: Patient Records Review: Previous Doctor Records, Previous Patient Records Urine Test Review: Urinalysis, CT scan reviewed with hydronephrosis PROCEDURES: Urinalysis - 92138 Dipstick Dipstick Cont'd Specimen: Voided Blood: about 50 Appearance: Clear pH: 5.0 Color: Yellow Protein: Trace Glucose: Normal Urobilinogen: Neg Bilirubin: Neg Nitrites: Neg Ketones: Neg Leukocyte Esterase: 1+ ASSESSMENT: ICD-10 Details 1 Acute pyelonephritis - N10 Acute, Systemic Symptoms 2 Hydronephrosis w ureteral stricture, NEC - N13.1 Acute, Systemic Symptoms PLAN: Document Letter(s): Created for Patient: Clinical Summary Notes: 51-year-old female with a history right ureteral stricture status post reimplant repair about 10 years ago but is having difficulties with pyelonephritis just recently was at outpatient hospital and nephrostomy tube placed then she came to see me last week I removed the nephrostomy tube and placed a stent. At the time of the removal of the nephrostomy tube and placement of the stent on the right side it appeared that the ureter was wide open and the anastomosis is wide open did not see strictures but this is only a retrograde Polygram. She now is in my office with nausea vomting with very swollen kidney on CT scan done two days ago. So plan admit the patient for pain control pyelonephritis, will consult ID and hospitalist, will take a surgery for tomorrow for right ureteroscopy balloon dilation if needed and probably place a larger stent and hospitalization for possible pyelonephritis.
--- NOTE | 2021-10-31 12:31 | PCM.CONS.GEN ---
Assessment & Plan Assessment/Plan (1) Pyelonephritis: (2) Acute right flank pain: PLAN: Patient is a 51-year-old lady with history of ureteral stricture status post nephrostomy tube with subsequent removal and stent placement presented with fever and chills 1. Postprocedure acute pyelonephritis ? Patient has been admitted to regular nursing floor started on IV fluids broad-spectrum antibiotic therapy with Cipro after urine and blood cultures have been sent 2. Urethral stricture ? Status post nephrostomy with subsequent removal and stent placement by Dr Prabhakar on 10/25/2021 3. Insomnia ? Patient is on trazodone at night 4. DVT prophylaxis ? Low risk we will encourage ambulation HPI Consult Data Date of Consult: 10/31/21 HPI Narrative HPI Narrative: MARLENA MARRERO, is a 51 F who presents right flank pain with associated fever and chills.. Patient had undergone removal of nephrostomy tube with placement of stent. Since procedure patient has continued to experience significant right-sided discomfort with associated fever and chills. Has been seen in the ER 2 days prior to her admission she was discharged on ciprofloxacin and tramadol and sent home. Patient was readmitted by Dr Prabhakar in view of worsening symptoms [facility] Medical History Hx of renal impairment Personal history of kidney stones Home Medications citalopram 20 mg PO DAILY 10/12/21 [History Last Taken Unknown] trazodone 100 mg PO QHS 10/12/21 [History Last Taken Unknown] ciprofloxacin HCl 500 mg PO BID #20 tab 10/29/21 [Rx Last Taken Unknown] tramadol See Rx Instructions .ROUTE .COMPLEX PRN #12 tab 10/29/21 [Rx Last Taken Unknown] Allergy/AdvReac Type Severity Reaction Status Date / Time meperidine HCl [From Demerol] Allergy Other Verified 10/29/21 12:51 morphine Allergy Rash Verified 10/29/21 12:51 oxycodone HCl [From Percocet] AdvReac Nausea Verified 10/29/21 12:51 Family History (Updated 10/31/21 @ 12:[address] Pan Heredia MD) Mother Colon cancer Father Diabetes Surgical History History of Social History Smoking Status: Never smoker ROS ROS Narrative GENERAL: fever, chills, anorexia HEENT: denies headache, sinus congestion, or drainage, dysphagia RESPIRATORY: denies cough, sputum production, shortness of breath, CARDIAC: denies chest pain, palpitations, orthopnea, PND GASTROINTESTINAL: denies abdominal pain, nausea, vomiting, melena, GENITOURINARY: Right flank pain EXTREMITY: denies swelling MUSCULOSKELETAL: denies current joint pain or tenderness NEUROLOGIC: denies focal numbness, weakness, tingling HEMATOLOGIC: denies easy bruising and/or hemorrhage INTEGUMENT: denies rashes PSYCHIATRIC: denies suicidal or homicidal ideation Physical Exam Narrative GENERAL: cooperative HEENT: Atraumatic; EYES; Anicteric, Normal Conjunctiva NECK; supple, normal thyroid, RESPIRATORY: Diminished to auscultation CARDIOVASCULAR: Regular S1 S2, GI: soft, normoactive bowel sounds, : No Renal angle tenderness; EXTREMITIES: No edema, no clubbing, MUSCULOSKELETAL: no muscle waisting NEURO: Awake; no lateralizing signs. SKIN: No Rash PSYCH; Flat affect Charges/Coding Visit Charges Office Visits / Consults: 73253 IP Consult L3
[2021-10-31] MEDS: 0.9% Normal Saline 1,000 ML 150 ML IV ×2 (12:50→20:02)
[2021-10-31] MEDS: 0.9% Saline Lock 10 ML Syringe IV (12:50)
[2021-10-31] MEDS: Acetaminophen 500 MG Tablet PO ×2 (12:55→21:22)
[2021-10-31 12:57] LABS: Hematocrit 38.9 % (37-47); Hemoglobin 13.7 g/dL (12.0-15.0); Mean Corpuscular Hgb 30.8 pg (27.0-32.0); Mean Corpuscular Volume 87.4 fL (81-99); Mean Platelet Vol. 11.3 fl (6.2-12.0); Platelet Count 392 K/mm3 (150-450); RBC Distribution Width CV 12.6 % (11.6-14.6); RBC Distribution Width SD 40.1 fl (35.1-43.9); Red Blood Count 4.45 M/mm3 (4.2-5.4); White Blood Count 8.9 K/mm3 (4.4-11.0)
[2021-10-31 12:59] LABS: Mean Corp Hgb Conc 35.2 g/dL (32-36)
[2021-10-31 13:19] LABS: Anion Gap 8 (5-15); BUN 15 mg/dL (7-18); BUN/Creat Ratio 13.6 RATIO (10-20); Chloride 103 mmol/L (98-107); EST Glomerular Filtration Rate 56 mL/min (>60); Est Glom Filt Rate - Afr Amer 68 mL/min (>60); Estimated Creatinine Clearance 53.42 ml/min; Glucose 72 mg/dL (74-106); Potassium 3.3 mmol/L (3.5-5.1); Sodium Level 137 mmol/L (136-145)
[2021-10-31] MEDS: Ciprofloxacin 400 MG/200 ML BAG 200 MG IV ×2 (13:58→21:21)
[2021-10-31] MEDS: Ondansetron 4 MG/2 ML Vial IV (18:07)
[2021-10-31 18:31] VITALS: BP 121/60; PULSE 93; RESP 16; TEMP 36.7; O2SAT 96
[2021-10-31] MEDS: Phenazopyridine 95 MG Tablet PO (21:21)
[2021-10-31] MEDS: traZODone 100 MG Tablet PO (21:22)
[2021-10-31] MEDS: MELATONIN 3 MG TABLET PO (21:22)
[2021-11-01] VITALS (9 sets, daily range): BP systolic 104–113; BP diastolic 53–72; PULSE 67–84; RESP 15–18; TEMP 36.7–37.1; O2SAT 94–98; BMI 25.7
[2021-11-01] MEDS: Acetaminophen 500 MG Tablet PO ×2 (03:48→08:34)
[2021-11-01] MEDS: 0.9% Normal Saline 1,000 ML 150 ML IV ×3 (03:49→18:17)
--- NOTE | 2021-11-01 07:25 | PN.HOSP_ITS ---
Subjective Subjective Patient is a 51-year-old lady with history of ureteral stricture status post nephrostomy tube with subsequent removal and stent placement presented with fever and chills 11/01/2010; scheduled for right ureteroscopy balloon dilation if needed and probably place a larger stent, Urine cultures positive for Pseudomonas, on appropriate antibiotics Objective Data Objective Data Vital Signs: Vital Signs Temp Pulse Resp BP Pulse Ox 98.8 F 67 16 104/57 L 96 11/01/21 03:00 11/01/21 03:00 11/01/21 03:00 11/01/21 03:00 11/01/21 03:00 Oxygen Delivery Method Room Air Weight: 68.039 kg Body Mass Index (BMI) 25.7 Intake & Output: Intake and Output for Last 24 Hours 10/30/21 10/31/21 11/01/21 23:59 23:59 23:59 Intake Total 2652.0 / 2652.0 100 / 100 Output Total 600 / 600 Balance 2052.0 / 2052.0 100 / 100 Lab / Micro Data Result Diagrams: 10/31/21 12:50 10/31/21 12:50 Labs: Laboratory Results - last 24 hr 10/31/21 12:50: WBC 8.9, RBC 4.45, Hgb 13.7, Hct 38.9, MCV 87.4, MCH 30.8, MCHC 35.2 D, RDW Std Deviation 40.1, RDW Coeff of Dion 12.6, Plt Count 392, MPV 11.3 10/31/21 12:50: Sodium 137, Potassium 3.3 L, Chloride 103, Carbon Dioxide 26.0, Anion Gap 8, BUN 15, Creatinine 1.10 H, Estim Creat Clear Calc 53.42, Est GFR (MDRD) Af Amer 68, Est GFR (MDRD) Non-Af 56 L, BUN/Creatinine Ratio 13.6, Glucose 72 L, Calcium 10.0 Micro: Microbiology 10/31/21 19:55 Nasal Secretion SARS-CoV-2 Antigen (Rapid) - Final Physical Exam Narrative GENERAL: cooperative HEENT: Atraumatic; EYES; Anicteric, Normal Conjunctiva NECK; supple, normal thyroid, RESPIRATORY: Diminished to auscultation CARDIOVASCULAR: Regular S1 S2, GI: soft, normoactive bowel sounds, : No Renal angle tenderness; EXTREMITIES: No edema, no clubbing, MUSCULOSKELETAL: no muscle waisting NEURO: Awake; no lateralizing signs. SKIN: No Rash PSYCH; Flat affect Assessment & Plan Assessment/Plan (1) Pyelonephritis: (2) Acute right flank pain: PLAN: Patient is a 51-year-old lady with history of ureteral stricture status post nephrostomy tube with subsequent removal and stent placement presented with fever and chills 1. Postprocedure acute pyelonephritis ? Patient has been admitted to regular nursing floor started on IV fluids broad- spectrum antibiotic therapy with Cipro after urine and blood cultures have been sent - 11/01/2021: scheduled for right ureteroscopy balloon dilation if needed and probably place a larger stent, Urine cultures positive for Pseudomonas, on appropriate antibiotics 2. Urethral stricture ? Status post nephrostomy with subsequent removal and stent placement by Dr Prabhakar on 10/25/2021 3. Insomnia ? Patient is on trazodone at night 4. DVT prophylaxis ? Low risk we will encourage ambulation Charges/Coding Visit Charges Inpatient E&M: 69064 Subs Hosp L2
[2021-11-01] MEDS: Ibuprofen 600 MG Tablet PO (08:34)
[2021-11-01] MEDS: Potassium Chloride Oral Tablet 20 MEQ 40 MEQ PO (08:34)
[2021-11-01] MEDS: Phenazopyridine 95 MG Tablet PO ×2 (08:34→21:04)
[2021-11-01] MEDS: Potassium Chloride Oral Tablet 20 MEQ PO ×2 (08:34→21:04)
[2021-11-01] MEDS: Ciprofloxacin 400 MG/200 ML BAG 200 MG IV ×2 (10:17→21:06)
--- NOTE | 2021-11-01 10:20 | CASEMGMT ---
ZE PEDRO Assessment: Face to Face with pt for initial transition planning/care coordination assessment. RN MAYELA introduced self and role at [facility], pt voices understanding and consents to assessment. Pt is A/O x4 and answers all questions appropriately at this time. Pt sitting up in chair in no distress. Care providers, pharmacy, and demographics verified/updated. Admitting Dx: R hydronephrosis/nephritis PCP:Haritha Sanchez NP Specialists: Vanna Frederick Pharmacy: [facility] Insurance: [employer] Prescription Benefit: yes LW/HPOA: Pt states she has a LW/DPOA and her DPOA is her sister, Charmaine Shay. She is aware this is not on file at [facility] and she may bring in to be scanned into her chart. LNOK: gabrielle Russel, dtr; Charmaine Shay, sister Living Arrangements: Pt lives with 17 year old dtr in a two story house with no steps to enter. Pt reports she is I in ADL's and denies concerns at home. Transportation: Pt drives self and denies concerns with transportation. DME/HHC/SNF: Pt denies having any DME, previous HHC or SNF stays. Pt states no concerns with going home at time of dc. Pt to have surgery today for dilation and laser stent on right. Pt states she has had a nephrostomy tube in the past and did not have difficulties caring for it. 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 She hopes to not need another. Pt states no further concerns/needs. CM to follow. Advised pt to ask CM if any further question/concerns/needs arise, voices understanding. Pt Goal: Home Plan: Home
--- NOTE | 2021-11-01 13:11 | CON.PCM.ID_ITS ---
Assessment & Plan Assessment/Plan (1) Pyelonephritis: PLAN: Ucx with PsA. On cipro. Will request [facility] cx results. OR planned for today with Dr. Prabhakar. Likely will be able to be discharged on 10 day course po cipro 500mg bid. Will follow, thank you HPI Consult Data Date of Consult: 11/01/21 HPI Narrative HPI Narrative: MARLENA MARRERO, is a 51 F who presented 10/31 with several days worsening R flank pain, nausea, fever, not feeling well. Presented first over 10/12 with similar sx. Bcx neg here, transferred to [facility], had neph tube placed, discharged on augmentin. Followed up with Dr. Prabhakar, had tube removed and stent placed. Now admitted with pseudomonas in urine, on cipro, still with pain, plan on OR today. Has had covid vaccine x2. Full ROS performed and neg except as noted above. [facility] Medical History Hx of renal impairment Ovarian cyst Personal history of kidney stones Tubal Home Medications citalopram 20 mg PO DAILY 10/12/21 [History Last Taken Unknown] trazodone 100 mg PO QHS 10/12/21 [History Last Taken Unknown] ciprofloxacin HCl 500 mg PO BID #20 tab 10/29/21 [Rx Last Taken Unknown] tramadol See Rx Instructions .ROUTE .COMPLEX PRN #12 tab 10/29/21 [Rx Last Taken Unknown] Allergy/AdvReac Type Severity Reaction Status Date / Time meperidine HCl [From Demerol] Allergy Other Verified 10/29/21 12:51 morphine Allergy Rash Verified 10/29/21 12:51 oxycodone HCl [From Percocet] AdvReac Nausea Verified 10/29/21 12:51 Family History (Updated 10/31/21 @ 12:[address] Pan Heredia MD) Mother Colon cancer Father Diabetes Surgical History History of Social History Smoking Status: Never smoker Physical Exam Const alert, oriented x3 and no apparent distress General Appearance: cooperative Exam Limitations: no limitations HEENT normocephalic and head/scalp atraumatic Eyes PERRL and EOMs intact bilaterally Neck supple and No nodes Resp normal air movement and clear to auscultation bilaterally Cardio regular rate and regular rhythm GI soft to palpation and non-distended GI Narrative: Mild R flank pain Extremity no clubbing, cyanosis or edema Skin no rashes or lesions noted Neuro CN's II-XII intact bilaterally Lab / Micro Data Result Diagrams: 10/31/21 12:50 10/31/21 12:50 Labs: Laboratory Results - last 24 hr 10/31/21 12:50: Sodium 137, Potassium 3.3 L, Chloride 103, Carbon Dioxide 26.0, Anion Gap 8, BUN 15, Creatinine 1.10 H, Estim Creat Clear Calc 53.42, Est GFR (MDRD) Af Amer 68, Est GFR (MDRD) Non-Af 56 L, BUN/Creatinine Ratio 13.6, Glucose 72 L, Calcium 10.0 Micro: Microbiology 10/31/21 19:55 Nasal Secretion SARS-CoV-2 Antigen (Rapid) - Final
--- NOTE | 2021-11-01 14:46 | NURSING ---
Patient off floor to surgery.
--- NOTE | 2021-11-01 17:23 | PCM.OPRPT ---
Report of Operation Date of Procedure: 11/01/21 Pre-Operative Diagnosis: Right pyelonephritis history of right ureteral reimplant Post-Operative Diagnosis: Same Surgery/Procedure Performed:: Cystoscopy, right retrograde pyelogram, right ureteroscopy diagnostic and right stent placement Description of Surgical Findings:: Indication is a 51-year-old female about 10 years ago she had a stricture in the distal ureter from a stone she had chronically dilated right system she underwent a right ureteral reimplantation. She presented to an outside hospital this past month with a bad infection of the right kidney underwent nephrostomy tube placement last week I remove the nephrostomy tube placed a stent but she came back again ill urine culture came back with Pseudomonas infection she is now been admitted to the hospital for the Pseudomonas pyelonephritis today articular surgery to look up the ureter make sure there is no obstruction probably place a stent. 51-year-old female taken back to the operating room at the [facility]ion of general anesthesia she was placed in dorsolithotomy position. Urethra and vaginal area prepped and draped in usual fashion when of the bladder with a 21 Lithuanian rigid cystourethroscope, grabbed the existing stent pulled out to the meatus as a wire of the stent over the wire went in with a flexible ureteroscope was able to go into the ureter through the ureter without any stricture or blockage all the way to the kidney I then decompressed the kidney is much as possible by pulling back on the syringe emptying out the kidney is much as possible work my way down the ureter there was no stricture along the course of the ureter the anastomosis was wide open. She does have a chronically dilated right kidney. I then put a wire up into the right kidney and over the wire I placed a stent 7 Lithuanian by 24 cm stent left the string on the stent for easy extraction in a few days patient's anesthetic was reversed taken back to the PACU in good condition and she tolerated procedure well. Surgeon: alda Type of Anesthesia: General Drains: stent 7 fr 24 cm Admit VTE Documentation VTE Present on Admission: No VTE Mechan Device Prophylaxis: SCD's VTE Pharm Prophylaxis ordered?: No
[2021-11-01] MEDS: traZODone 100 MG Tablet PO (21:04)
[2021-11-02] MEDS: 0.9% Normal Saline 1,000 ML 150 ML IV ×2 (01:45→07:29)
[2021-11-02 01:46] VITALS: BP 106/50; PULSE 66; RESP 15; TEMP 36.6; O2SAT 96
[2021-11-02 03:00] VITALS: RESP 15
[2021-11-02 06:16] VITALS: BP 116/49; PULSE 70; RESP 15; TEMP 36.8; O2SAT 93
[2021-11-02] MEDS: Phenazopyridine 95 MG Tablet PO (07:30)
[2021-11-02] MEDS: Potassium Chloride Oral Tablet 20 MEQ PO (07:30)
[2021-11-02 07:32] VITALS: BP 109/69; PULSE 68; RESP 18; TEMP 36.2; O2SAT 94
--- NOTE | 2021-11-02 07:33 | PN.HOSP_ITS ---
Subjective Subjective Patient underwent cystoscopy, right retrograde pyelogram, right ureteroscopy diagnostic and right stent placement by Dr Prabhakar on 11/01/2021 Objective Data Objective Data Vital Signs: Vital Signs Temp Pulse Resp BP Pulse Ox 97.2 F L 68 18 109/69 94 11/02/21 07:32 11/02/21 07:32 11/02/21 07:32 11/02/21 07:32 11/02/21 07:32 Oxygen Delivery Method Room Air Weight: 68 kg Body Mass Index (BMI) 25.7 Intake & Output: Intake and Output for Last 24 Hours 10/31/21 11/01/21 11/02/21 23:59 23:59 23:59 Intake Total 2652.0 / 2652.0 2687 / 2687 2360 / 2360 Output Total 600 / 600 625 / 625 1700 / 1700 Balance 2052.0 / 2052.0 2061 / 2061 660 / 660 Lab / Micro Data Result Diagrams: 10/31/21 12:50 10/31/21 12:50 Micro: Microbiology 10/31/21 19:55 Nasal Secretion SARS-CoV-2 Antigen (Rapid) - Final Physical Exam Narrative GENERAL: cooperative HEENT: Atraumatic; EYES; Anicteric, Normal Conjunctiva NECK; supple, normal thyroid, RESPIRATORY: Diminished to auscultation CARDIOVASCULAR: Regular S1 S2, GI: soft, normoactive bowel sounds, : No Renal angle tenderness; EXTREMITIES: No edema, no clubbing, MUSCULOSKELETAL: no muscle waisting NEURO: Awake; no lateralizing signs. SKIN: No Rash PSYCH; Flat affect Assessment & Plan Assessment/Plan (1) Pyelonephritis: (2) Acute right flank pain: PLAN: Patient is a 51-year-old lady with history of ureteral stricture status post nephrostomy tube with subsequent removal and stent placement presented with fever and chills 1. Postprocedure acute pyelonephritis ? Patient has been admitted to regular nursing floor started on IV fluids broad- spectrum antibiotic therapy with Cipro after urine and blood cultures have been sent - 11/01/2021: scheduled for right ureteroscopy balloon dilation if needed and probably place a larger stent, Urine cultures positive for Pseudomonas, on appropriate antibiotics -11/02/2021 patient underwent cystoscopy, right retrograde pyelogram, right ureteroscopy diagnostic and right stent placement by Dr Prabhakar on 11/01/2021 2. Urethral stricture ? Status post nephrostomy with subsequent removal and stent placement by Dr Prabhakar on 10/25/2021 3. Insomnia ? Patient is on trazodone at night 4. DVT prophylaxis ? Low risk we will encourage ambulation Charges/Coding Visit Charges Inpatient E&M: 71318 Subs Hosp L2
--- NOTE | 2021-11-02 08:44 | PCM.PN.BLA ---
Progress Note 51-year-old female status post admission to the hospital for right pyelonephritis she has a reimplanted right ureter underwent ureteroscopy demonstrated no severe obstruction in the ureter and stent was placed. She is feeling better this morning growing Pseudomonas sensitive to Cipro we will send her home today on Cipro. Physical Exam Const alert and oriented x3 General Appearance: cooperative HEENT normocephalic, head/scalp atraumatic, EAC's normal and TM's normal bilaterally Eyes PERRL and EOMs intact bilaterally Pupil: sluggish Neck no lymphadenopathy, supple and no JVD General: trachea midline Lymph Lymphatic: no lymphadenopathy noted, lymphedema and lymphadenopathy Resp normal respiratory effort, normal air movement and clear to auscultation bilaterally Cardio regular rate, regular rhythm and peripheral pulses 2+ throughout GI soft to palpation, non-tender and non-distended Extremity normal capillary refill and no clubbing, cyanosis or edema General Extremity: no tenderness to palpation of joints or extremities Skin no rashes or lesions noted General Skin Exam: turgor normal Lesions: no lesions Rashes: no rashes Neuro CN's II-XII intact bilaterally Speech: speech normal Motor Exam: strength 5/5 throughout; Negative for general weakness Psych thought process normal, cooperative and affect normal Appearance: appropriate Assessment & Plan Assessment/Plan (1) Hydronephrosis, right: (2) Pyelonephritis:
--- NOTE | 2021-11-02 08:45 | PCM.DC.SUM ---
Providers Date of Admission: 10/31/21 Primary Care Physician: VETO Sinclair Consultations 10/31/21 11:46 Consult: Hospitalist Routine Consulting Provider: Jose A Mir Reason for Consult: hydro nephritis and pyelonephritis EMERGENT Consult: No Notified: Yes Date Notified: 10/31/21 Time Notified: 11:46 Method of Notification: Text 10/31/21 11:48 Consult: Infectious Disease Routine Consulting Provider: Tigre Galarza Reason for Consult: hydronephrosis and pyelonephritis EMERGENT Consult: No Notified: Yes Date Notified: 10/31/21 Time Notified: 11:48 Method of Notification: Text 10/31/21 12:09 Consult: Hospitalist Routine Consulting Provider: Jose A Mir Reason for Consult: medicdal manegemnt, pyelo EMERGENT Consult: No Notified: Yes Date Notified: 10/31/21 Time Notified: 12:10 Method of Notification: Text 10/31/21 12:11 Consult: Infectious Disease Routine Consulting Provider: Tigre Galarza Reason for Consult: pyelonephritis EMERGENT Consult: No Notified: Yes Date Notified: 10/31/21 Time Notified: 12:11 Method of Notification: Text Reason For Visit: R. HYDRO NEUPHROSIS/NEPHRITIS Diagnosis Discharge Diagnosis (1) Hydronephrosis, right: Status: Acute Code(s): N13.30 - Unspecified hydronephrosis (2) Pyelonephritis: Status: Acute Code(s): N12 - Tubulo-interstitial nephritis, not specified as acute or chronic Medications at Discharge Home Medications citalopram 20 mg PO DAILY 10/12/21 trazodone 100 mg PO QHS 10/12/21 tramadol See Rx Instructions .ROUTE .COMPLEX PRN #12 tab 10/29/21 ciprofloxacin HCl [Cipro] 500 mg PO BID #14 tab 11/02/21 nitrofurantoin macrocrystal 100 mg PO QHS #90 cap 11/02/21 Hospital Course Summary of Care Provided Hospital Course: 51-year-old female was a direct admission from the office with right pyelonephritis she has a reimplanted right ureter into the bladder had severe sepsis earlier this September required nephrostomy tube. Patient was admitted culture came back with Pseudomonas she was on appropriate Cipro taken to the operating room we did a diagnostic ureteroscopy the anastomosis between the ureter and bladder was wide open. 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 Physical Exam Const alert and oriented x3 General Appearance: cooperative HEENT normocephalic, head/scalp atraumatic, EAC's normal and TM's normal bilaterally Eyes PERRL and EOMs intact bilaterally Pupil: sluggish Neck no lymphadenopathy, supple and no JVD General: trachea midline Lymph Lymphatic: no lymphadenopathy noted, lymphedema and lymphadenopathy Resp normal respiratory effort, normal air movement and clear to auscultation bilaterally Cardio regular rate, regular rhythm and peripheral pulses 2+ throughout GI soft to palpation, non-tender and non-distended Extremity normal capillary refill and no clubbing, cyanosis or edema General Extremity: no tenderness to palpation of joints or extremities Skin no rashes or lesions noted General Skin Exam: turgor normal Lesions: no lesions Rashes: no rashes Neuro CN's II-XII intact bilaterally Speech: speech normal Motor Exam: strength 5/5 throughout; Negative for general weakness Psych thought process normal, cooperative and affect normal Appearance: appropriate Weight / BMI Weight Weight: 68 kg Body Mass Index (BMI) 25.7 ABG / Lab / Microbiology Data Result Diagrams: 10/31/21 12:50 10/31/21 12:50 Microbiology: Microbiology 10/31/21 19:55 Nasal Secretion SARS-CoV-2 Antigen (Rapid) - Final D/C Instructions Discharge Diet: No restrictions Discharge Activity: Return to Normal Activity Meaningful Use Info Meaningful Use Diagnoses (Choose all that apply): None applicable Discharge Plan Admission Admit Date/Time: 10/31/21 12:07 Primary Reason for Your Visit: pyelonephritis Attending Provider: Pan Heredia Primary Care Provider: Haritha Sanchez NP Consulting Providers: Jose A Mir ; Tigre Galarza Discharge Orders/Prescriptions Prescriptions: New ciprofloxacin HCl [Cipro] 500 mg tablet 500 mg PO BID Qty: 14 RF: 0 nitrofurantoin macrocrystal 100 mg capsule 100 mg PO QHS Qty: 90 RF: 3 Continued citalopram 20 mg tablet 20 mg PO DAILY RF: 0 trazodone 100 mg tablet 100 mg PO QHS RF: 0 tramadol 50 mg tablet See Rx Instructions .ROUTE .COMPLEX PRN (Reason: pain) Qty: 12 RF: 0 Discontinued ciprofloxacin HCl [ciprofloxacin HCl] 500 MG tablet 500 mg PO BID Qty: 20 RF: 0 Referrals / Follow Up: Waylon Prabhakar MD [STAFF PHYSICIAN] - Haritha Sanchez NP, UPHOLSTERY CUTTER-C [Primary Care Provider] - Disposition Discharge Orders: Discharge Patient (Routine); Ordered 11/02/21 Ordered By: Dr. Waylon Prabhakar
--- NOTE | 2021-11-02 08:48 | DCINST_ITS ---
Discharge Instructions Diet Discharge Diet: No restrictions Activity Discharge Activity: Return to Normal Activity and May Not Drive (while taking narcotic pain medications.) Dressing / Incision Call your doctor if you observe: Fever of 101 or Higher Follow Up Care Please Follow Up With: Waylon Prabhakar MD When: Call [phone] for an appointment Test Results: Test results from this visit will be discussed in further detail at your follow-up appointment, if applicable. Discharge Plan Admission Admit Date/Time: 10/31/21 12:07 Primary Reason for Your Visit: pyelonephritis Attending Provider: Pan Heredia Primary Care Provider: Haritha Sanchez NP Consulting Providers: Jose A Mir ; Tigre Galarza Discharge Orders/Prescriptions Prescriptions: New ciprofloxacin HCl [Cipro] 500 mg tablet 500 mg PO BID Qty: 14 RF: 0 nitrofurantoin macrocrystal 100 mg capsule 100 mg PO QHS Qty: 90 RF: 3 Continued citalopram 20 mg tablet 20 mg PO DAILY RF: 0 trazodone 100 mg tablet 100 mg PO QHS RF: 0 tramadol 50 mg tablet See Rx Instructions .ROUTE .COMPLEX PRN (Reason: pain) Qty: 12 RF: 0 Discontinued ciprofloxacin HCl [ciprofloxacin HCl] 500 MG tablet 500 mg PO BID Qty: 20 RF: 0 Referrals / Follow Up: Waylon Prabhakar MD [STAFF PHYSICIAN] - Haritha Sanchez NP, RETAIL SALES REPRESENTATIVE-C [Primary Care Provider] - Disposition Discharge Orders: Discharge Patient (Routine); Ordered 11/02/21 Ordered By: Dr. Waylon Prabhakar
[2021-11-02 08:57] VITALS: RESP 16
[2021-11-02] MEDS: Potassium Chloride Oral Tablet 20 MEQ 40 MEQ PO (09:06)
[2021-11-02] MEDS: Ciprofloxacin 400 MG/200 ML BAG 200 MG IV (09:06)
[2021-11-02 10:22] VITALS: BP 124/66; PULSE 62; RESP 16; TEMP 36.8; O2SAT 99
== END 2021-11-02 10:28 | disposition home or self-care (01) | DRG 661 ==
PROVIDERS: Admitting Provider Urology; PCP Nurse Practitioner Family; Visit Provider Internal Medicine
PROC: 0T768DZ Dilation of Right Ureter with Intraluminal Device, Via Natural or Artificial Opening Endoscopic (ICD-10-PCS; CPT 52356; principal; 2021-11-01 15:25)
DX: N12 Tubulo-interstitial nephritis, not specified as acute or chronic (principal); N13.30 Unspecified hydronephrosis; B96.5 Pseudomonas (aeruginosa) (mallei) (pseudomallei) as the cause of diseases classified elsewhere; G47.00 Insomnia, unspecified; Z87.442 Personal history of urinary calculi
CPT/HCPCS: 36415; 76000; 80048; 85027; 87426; J7030; A4216; C1769; C1874; J0744; J2405

== ENCOUNTER 2022-03-15 08:36 | Emergency (ER) | payer BC, SELFPAY ==
[2022-03-15 08:37] VITALS: BP 116/80; PULSE 75; RESP 16; TEMP 36.9; O2SAT 98; BMI 27.1
--- NOTE | 2022-03-15 08:42 | CT_ITS ---
STUDY: CT ABDOMEN AND PELVIS WITHOUT CONTRAST REASON FOR EXAM: Female, 51 years old. Kidney Stone, LT SIDED FLANK PAIN, HX KS, RECENT LITHOTRIPSY/SEPSIS RADIATION DOSAGE (If Supplied By Facility): CTDIvol = ( 9.31 ) mGy, DLP = ( 430.20 ) mGycm TECHNIQUE: Transaxial images were obtained from the dome of the diaphragm to the symphysis pubis without oral contrast, and without intravenous contrast. Sagittal and coronal images were reconstructed. Individualized dose optimization techniques were used for this CT. COMPARISON: CT abdomen and pelvis without contrast 10/29/2021 FINDINGS: The visualized lung bases are unremarkable. The visualized portions of the heart are within normal limits. Normal liver. The portal vein diameter is 11.8 mm. Normal gallbladder and extrahepatic biliary system. Normal spleen. Normal pancreas. Normal bilateral adrenal glands. Right double-J ureteral stent seen on previous study has since been removed. 2 -- 3 mm nonobstructing stone in a midpole calyx of right kidney again noted there is mild ectasia of the right renal pelvis and proximal to mid right ureter. The renal calyces and distal ureter are nondilated. Elongated 4.5 mm nonobstructing stone in an upper pole calyx of left kidney also again seen. There is mild hydroureteronephrosis down to the ureterovesical junction, more prominent than on previous study. Possible 1 -- 2 mm stone at the left ureterovesical junction on series 2 image 134, series 601 image 55, series 602 image 80. Normal visualized stomach. Normal small intestine. Normal colon. The appendix is visualized and appears normal. There is stable mild atherosclerotic calcific plaquing of the proximal infrarenal aorta. No demonstrated aneurysm. Normal inferior vena cava. Normal retroperitoneum. Nearly empty urinary bladder limiting evaluation. Normal size anteverted uterus, extending just right of midline. There is a stable cluster small calcifications extending along the left adnexa. Normal abdominal wall. Normal osseous structures. CT/Abdomen/Pelvis without Cont IMPRESSION: 1. Bilateral nephrolithiasis again noted. Mild left hydroureteronephrosis, more prominent than on previous study, with possible 1 -- 2 mm stone at the left ureterovesical junction. 2. Double-J ureteral stent seen previously on the right has been removed. There is mild residual ectasia of the right renal pelvis and proximal ureter. 3. The urinary bladder is nearly empty at the time of scanning, limiting evaluation. Electronically Signed: Remi Farfan MD at 9:32 EDT ,
[2022-03-15] MEDS: 0.9% Normal Saline 1,000 ML 250 ML IV (08:45)
[2022-03-15] MEDS: Ondansetron 4 MG/2 ML Vial IV (08:47)
[2022-03-15] MEDS: HYDROmorphone 1 MG/ML Syringe IV ×2 (08:47→09:34)
[2022-03-15] MEDS: Ketorolac 30 MG/ML Syringe IV (08:47)
--- NOTE | 2022-03-15 08:47 | EX.ED.DYSGE1 ---
HPI History of Present Illness Chief Complaint: Abd Pain Informant: patient Narrative Narrative: 51-year-old female with a long urologic history resenting to the emergency department with left lower abdominal flank pain. Pain began around 0400 today. It is associated with nausea and vomiting. 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 She states that she is on a antibiotic but does not know what it is I believe it is nitrofurantoin from chart biopsy. She denies any fevers. She notes burning with urination but states that that is actually quite common for her. PFSH PFSH Medical History Hx of renal impairment Ovarian cyst Personal history of kidney stones Tubal Home Medications citalopram 20 mg PO DAILY 10/12/21 [History Last Taken Unknown] trazodone 100 mg PO QHS 10/12/21 [History Last Taken Unknown] nitrofurantoin macrocrystal 100 mg PO QHS #90 cap 11/02/21 [Rx Last Taken Unknown] ketorolac 10 mg PO Q8H PRN 5 Days #15 tab 03/15/22 [Rx Last Taken Unknown] tramadol 50 mg PO Q4H PRN PRN 3 Days #20 tab 03/15/22 [Rx Last Taken Unknown] Allergy/AdvReac Type Severity Reaction Status Date / Time meperidine HCl [From Demerol] Allergy Other Verified 03/15/22 08:36 morphine Allergy Rash Verified 03/15/22 08:36 oxycodone HCl [From Percocet] AdvReac Nausea Verified 03/15/22 08:36 Family History Mother Colon cancer Father Diabetes Surgical History History of Hx of tubal ligation Social History (Updated 03/15/22 @ 08:[address] Christo Randhawa DO) Smoking Status: Never smoker substance use type: does not use ROS ROS ED Constitutional Constitutional ED: Denies chills, fever(s) or weight loss Eyes Eyes: Denies change in vision or diplopia ENT ENT ED: Denies ear pain, rhinorrhea or sore throat Cardiovascular Cardiovascular: Denies chest pain, orthopnea, palpitations or racing heartbeat Respiratory/Chest Respiratory/Chest: Denies cough, dyspnea or orthopnea Gastrointestinal Gastrointestinal: Reports abdominal pain, nausea and vomiting; Denies diarrhea Genitourinary Genitourinary ED: Denies dysuria, hematuria or urinary frequency Musculoskeletal Musculoskeletal: Reports back pain; Denies arthralgias or myalgias Integumentary Denies abscess or rash Neurologic Neurologic: Denies headache(s) or weakness Psychiatric Psychiatric: Denies anxiety, depression, suicidal ideation or suicidal thoughts Endocrine Endocrinology: Denies polydipsia, polyphagia or polyuria Allergic/Immunologic Allergic/Immunologic ED: Denies mouth swelling, tongue swelling or urticaria EXAM Physical Exam Narrative Exam Narrative: Patient appears in pain laying on her right side and holding her abdomen. Const Vital Signs: 03/15/22 08:37 Temperature 98.5 F Temperature Source Temporal Pulse Rate 75 Respiratory Rate 16 Blood Pressure 116/80 Blood Pressure Mean 92 Pulse Ox 98 Oxygen Delivery Method Room Air Positive well nourished and well developed General Appearance ED: well developed HEENT Reports normocephalic, head/scalp atraumatic, TM's clear and moist mucous membranes Negative for trauma Tympanic Membrane ED: Yes TM's clear Eyes PERRL and EOMs intact bilaterally Neck no lymphadenopathy, supple and no JVD Resp normal respiratory effort and clear to auscultation bilaterally Cardio regular rate, regular rhythm and no murmurs GI normal to inspection, nondistended, normoactive bowel sounds and non-tender Palpation: soft Back/Spine no CVA tenderness and normal ROM Extremity normal to inspection General Extremety ED: Negative for edema General Extremity: Negative for edema Neuro oriented x3 and CN's II-XII intact bilaterally Sensorium / Orientation: alert Motor Exam: strength 5/5 throughout Psych mental status grossly normal Mood & Affect: Negative for depressed or tearful Skin no rashes or lesions noted and no wounds MDM MDM MDM Narrative Medical decision making narrative: Count is normal at 7.3. Creatinine 1.32 test is negative. Urinalysis shows some contamination but no overt infection. Patient received Dilaudid and Toradol as well as Zofran and IV fluids. CT of the abdomen pelvis demonstrates some mild hydronephrosis on the left with a distal ureteral stone of 1 to 2 mm. Case was discussed with her urologist plan will be outpatient pain medication and observation. Return if worsening or concerns Lab Data Attestation: I reviewed the patient's lab results. Labs: Laboratory Results - last 24 hr 03/15/22 03/15/22 03/15/22 08:45 08:45 08:45 WBC 7.3 RBC 4.66 Hgb 14.1 Hct 43.1 MCV 92.5 MCH 30.3 MCHC 32.7 RDW Std Deviation 42.9 RDW Coeff of Dion 12.5 Plt Count 297 MPV 11.8 Immature Gran % (Auto) 0.500 Neut % (Auto) 68.9 Lymph % (Auto) 19.5 Thayer % (Auto) 5.2 Eos % (Auto) 4.9 Baso % (Auto) 1.0 Absolute Neuts (auto) 5.0 Absolute Lymphs (auto) 1.42 Nucleated RBC % 0 Sodium 139 Potassium 3.7 Chloride 108 H Carbon Dioxide 24.0 Anion Gap 7 BUN 13 Creatinine 1.32 H Estim Creat Clear Calc 44.52 Est GFR (MDRD) Af Amer 55 L Est GFR (MDRD) Non-Af 45 L BUN/Creatinine Ratio 9.8 L Glucose 137 H Calcium 8.9 Serum , Qual NEGATIVE Urine Color Urine Clarity Urine pH Ur Specific [place] Urine Protein Urine Glucose (UA) Urine Ketones Urine Occult Blood Urine Nitrite Urine Bilirubin Urine Urobilinogen Ur Leukocyte Esterase Urine RBC Urine WBC Ur Squamous Epith Cells Urine Bacteria Urine Mucus 03/15/22 09:42 WBC RBC Hgb Hct MCV MCH MCHC RDW Std Deviation RDW Coeff of Dion Plt Count MPV Immature Gran % (Auto) Neut % (Auto) Lymph % (Auto) Thayer % (Auto) Eos % (Auto) Baso % (Auto) Absolute Neuts (auto) Absolute Lymphs (auto) Nucleated RBC % Sodium Potassium Chloride Carbon Dioxide Anion Gap BUN Creatinine Estim Creat Clear Calc Est GFR (MDRD) Af Amer Est GFR (MDRD) Non-Af BUN/Creatinine Ratio Glucose Calcium Serum , Qual Urine Color Yellow Urine Clarity Clear Urine pH 8.0 Ur Specific [place] 1.015 Urine Protein 15 H Urine Glucose (UA) Normal Urine Ketones Negative Urine Occult Blood 10 H Urine Nitrite Negative Urine Bilirubin Negative Urine Urobilinogen Normal Ur Leukocyte Esterase 25 H Urine RBC 0 SEEN Urine WBC 0-5 SEEN Ur Squamous Epith Cells 5-10 SEEN Urine Bacteria 2+ Urine Mucus 0 SEEN Radiography Diagnostic Testing: Clinical Impression(s) from Imaging Studies Abdomen/Pelvis CT 03/15/22 08:42 IMPRESSION: 1. Bilateral nephrolithiasis again noted. Mild left hydroureteronephrosis, more prominent than on previous study, with possible 1 -- 2 mm stone at the left ureterovesical junction. 2. Double-J ureteral stent seen previously on the right has been removed. There is mild residual ectasia of the right renal pelvis and proximal ureter. 3. The urinary bladder is nearly empty at the time of scanning, limiting evaluation. Electronically Signed: Remi Farfan MD at 9:32 EDT , Discharge Plan Triage Chief Complaint: Abd Pain ED Provider: Christo Randhawa Dx/Rx/DC Orders Clinical Impression: Ureterolithiasis, Renal colic on left side Instructions: ED Kidney Stone w/ Colic Prescriptions: New tramadol 50 MG tablet 50 mg PO Q4H PRN PRN (Reason: Pain) 3 Days Qty: 20 RF: 0 ketorolac 10 mg tablet 10 mg PO Q8H PRN (Reason: pain) 5 Days Qty: 15 RF: 0 No Action citalopram 20 mg tablet 20 mg PO DAILY RF: 0 trazodone 100 mg tablet 100 mg PO QHS RF: 0 nitrofurantoin macrocrystal 100 mg capsule 100 mg PO QHS Qty: 90 RF: 3 Primary Care Provider: Haritha Sanchez NP Referrals: Waylon Prabhakar MD [STAFF PHYSICIAN] - As soon as possible Haritha Sanchez NP, EMERGENCY MANAGEMENT PROGRAM SPECIALIST-C [Primary Care Provider] - Disposition Disposition: Home, Self Care
[2022-03-15 08:56] LABS: Absolute Lymphocyte Count 1.42 X10^3/uL (0.83-4.51); Basophil# 0.07 X10^3/uL; Eosinophil# 0.36 X10^3/uL; Eosinophils% 4.9 % (0-5); Hematocrit 43.1 % (37-47); Hemoglobin 14.1 g/dL (12.0-15.0); Lymphocyte # 1.42 X10^3/ul (0.83-4.51); Lymphocyte % 19.5 % (19-41); Mean Corp Hgb Conc 32.7 g/dL (32-36); Mean Corpuscular Hgb 30.3 pg (27.0-32.0); Mean Corpuscular Volume 92.5 fL (81-99); Mean Platelet Vol. 11.8 fl (6.2-12.0); Monocyte# 0.38 X10^3/uL; Monocyte% 5.2 % (0-10); NRBC Flagged by Analyzer 0 % (0-5); Neutrophil # 5.01 X10^3/uL (2.7-7.7); Neutrophil % 68.9 % (47-70); Platelet Count 297 K/mm3 (150-450); RBC Distribution Width CV 12.5 % (11.6-14.6); RBC Distribution Width SD 42.9 fl (35.1-43.9); Red Blood Count 4.66 M/mm3 (4.2-5.4); White Blood Count 7.3 K/mm3 (4.4-11.0)
[2022-03-15 09:09] LABS: Anion Gap 7 (5-15); BUN 13 mg/dL (7-18); BUN/Creat Ratio 9.8 RATIO (10-20); Calcium,Total 8.9 mg/dL (8.5-10.1); Chloride 108 mmol/L (98-107); Creatinine, Serum 1.32 mg/dL (0.55-1.02); EST Glomerular Filtration Rate 45 mL/min (>60); Est Glom Filt Rate - Afr Amer 55 mL/min (>60); Estimated Creatinine Clearance 44.52 ml/min; Glucose 137 mg/dL (74-106); Potassium 3.7 mmol/L (3.5-5.1); Sodium Level 139 mmol/L (136-145)
[2022-03-15 09:31] LABS: Internal QC Validated? YES +Cl - CLEAR BKGD; Pregnancy, Serum, hCG Quali. NEGATIVE Negative
[2022-03-15 09:46] LABS: Mucous, Urine 0 SEEN /hpf (<or=2+); Red Blood Cells-Urine 0 SEEN /hpf (0-5)
[2022-03-15 09:50] LABS: Color, Urine Yellow (Yellow); Glucose, Dipstick Normal (Normal); Ketone-Dipstick Negative (Negative); Leukocyte Esterase-Dipstick 25 /ul (Negative); Nitrite-Dipstick Negative (Negative); Occult Blood-Urine 10 /ul (Negative); Protein-Dipstick 15 mg/dl (Negative); Specific Gravity, Urine 1.015 (1.002-1.030); Urine Bilirubin Dipstick Negative (Negative); Urine Clarity Clear (Clear); Urine Urobilinogen Normal (Normal)
[2022-03-15 10:04] LABS: White Blood Cells 0-5 SEEN /hpf (0-5)
[2022-03-15 10:05] LABS: Bacteria 2+ /hpf (None Seen); Squamous Epithelial Cells - UA 5-10 SEEN /hpf (5-10)
[2022-03-15] MEDS: DiphenhydrAMINE 50 MG/ML Syringe 25 MG IV (10:48)
[2022-03-15 10:50] VITALS: BP 109/75; PULSE 64; RESP 18; O2SAT 99
== END 2022-03-15 10:55 | disposition home or self-care (01) ==
PROVIDERS: Emergency Provider Emergency Medicine; PCP Nurse Practitioner Family; Visit Provider Emergency Medicine
DX: N13.2 Hydronephrosis with renal and ureteral calculous obstruction (principal); Z87.442 Personal history of urinary calculi
CPT/HCPCS: 74176; 80048; 81001; 84703; 85025; 96361; 96374; 96375; 96376; 99284; J7030; A4216; J2405

== ENCOUNTER → 2022-06-10 | Outpatient (CLI) | payer BC, SELFPAY | END | disposition home or self-care (01) | LOC: LABSPEC 16:46 | PROVIDERS: PCP Nurse Practitioner Family; Visit Provider Urology | DX: N30.20 Other chronic cystitis without hematuria (principal) | CPT/HCPCS: 87086 ==

== ENCOUNTER → 2022-06-10 | Outpatient (CLI) | payer BC, SELFPAY ==
--- NOTE | 2022-06-10 09:19 | RAD_ITS ---
STUDY: X-RAY - ABDOMEN/PELVIS REASON FOR EXAM: Female, 51 years old. Generalized abdominal pain. Left-sided kidney stone. TECHNIQUE: Two AP supine views of the abdomen and pelvis. COMPARISON: CT of the abdomen and pelvis, 10/29/2021. FINDINGS: Normal visualized lung bases. There is an unremarkable bowel gas pattern. There is no demonstrated free abdominal air. The visualized liver, spleen and kidneys are grossly normal in size and morphology. There is absence of the right ureteral stent seen on the previous study. Small calcification in the upper pole left kidney seen on CT is not appreciated. Normal soft tissue structures. Normal visualized osseous structures. RAD/Abdomen Single View IMPRESSION: Normal x-ray examination of the abdomen and pelvis. Electronically Signed: Noe Weir DO at 21:40 EDT ,
== END | disposition home or self-care (01) ==
LOC: RAD 09:17
PROVIDERS: PCP Nurse Practitioner Family; Referring Provider Urology; Visit Provider Urology
DX: R10.84 Generalized abdominal pain (principal)
CPT/HCPCS: 74018

== ENCOUNTER 2022-06-16 10:35 | Observation (INO) | payer BC, SELFPAY ==
[2022-06-16] VITALS (12 sets, daily range): BP systolic 92–133; BP diastolic 54–94; PULSE 57–100; RESP 16–20; TEMP 36.4–36.7; O2SAT 93–100; BMI 26.1; BMI 29.0
--- NOTE | 2022-06-16 11:44 | EX.ED.DYSGE1 ---
HPI History of Present Illness Chief Complaint: Flank Pain Onset/Context/Timing Onset: Weeks (1) Context: Sudden Onset Timing: Continuous Quality: Sharp, stabbing Location: Left flank Worsened by: Nothing Relieved by: Nothing Narrative Narrative: Patient presents with left flank pain that began 1 week ago. Patient states that became worse today. Patient was diagnosed with a 7 mm left ureteral calculus. Patient states she is scheduled to have surgery to have this removed this Thursday. Patient does not think she will be able to wait until Thursday to have this done. Patient states she contacted Dr. Prabhakar and he is supposed to admit her to have the surgery tomorrow. Patient denies any fevers or chills. Patient does admit to some dysuria and hematuria. Patient describes her pain as sharp and stabbing. PFSH [facility] Medical History Hx of renal impairment Ovarian cyst Personal history of kidney stones Tubal Home Medications citalopram 20 mg tablet 20 mg PO DAILY 10/12/21 [History Last Taken Unknown] trazodone 100 mg tablet 100 mg PO QHS 10/12/21 [History Last Taken Unknown] nitrofurantoin macrocrystal 100 mg capsule 100 mg PO QHS #90 caps 11/02/21 [Rx Last Taken Unknown] ketorolac 10 mg tablet 10 mg PO Q8H PRN pain 5 days #15 tabs 03/15/22 [Rx Last Taken Unknown] tramadol 50 mg tablet 50 mg PO Q4H PRN PRN Pain 3 days #20 tabs 03/15/22 [Rx Last Taken Unknown] Allergy/AdvReac Type Severity Reaction Status Date / Time meperidine HCl [From Demerol] Allergy Other Verified 06/16/22 10:38 morphine Allergy Rash Verified 06/16/22 10:38 oxycodone HCl [From Percocet] AdvReac Nausea Verified 06/16/22 10:38 Family History Mother Colon cancer Father Diabetes Surgical History History of Hx of tubal ligation Social History Smoking Status: Never smoker substance use type: does not use ROS ROS ED Constitutional Constitutional ED: Denies chills or fever(s) Eyes Eyes: Denies blurry vision or change in vision ENT ENT ED: Denies rhinorrhea or sore throat Cardiovascular Cardiovascular: Denies chest pain or palpitations Respiratory/Chest Respiratory/Chest: Denies cough or dyspnea Gastrointestinal Gastrointestinal: Reports nausea; Denies vomiting Genitourinary Genitourinary ED: Reports dysuria and hematuria Musculoskeletal Musculoskeletal: Reports back pain; Denies neck pain Integumentary Denies abscess or rash Neurologic Neurologic: Denies headache(s) or weakness Allergic/Immunologic Allergic/Immunologic ED: Denies mouth swelling or urticaria EXAM Physical Exam Const Vital Signs: 06/16/22 10:36 Temperature 98 F Temperature Source Temporal Pulse Rate 77 Respiratory Rate 18 Blood Pressure 121/94 H Blood Pressure Mean 103 Pulse Ox 99 Oxygen Delivery Method Room Air Positive well nourished and well developed General Appearance ED: well developed and NAD HEENT Reports moist mucous membranes Resp normal respiratory effort and clear to auscultation bilaterally Cardio regular rate and regular rhythm GI normal to inspection, nondistended, normoactive bowel sounds Palpation: soft and tender LLQ and LUQ Back/Spine General Back: CVA tenderness left Neuro oriented x3, CN's II-XII intact bilaterally and no sensory deficits noted Sensorium / Orientation: alert Motor Exam: strength 5/5 throughout Psych mental status grossly normal MDM MDM MDM Narrative Medical decision making narrative: Patient was given a dose of Dilaudid here. Case was discussed with Dr. Prabhakar. He will admit the patient to his service. CBC and basic metabolic profile were obtained and are pending. Urinalysis was obtained and is pending. Patient understands and is agreeable with the plan. All questions were answered. Discharge Plan Triage Chief Complaint: Flank Pain ED Provider: Evelio Adams Dx/Rx/DC Orders Clinical Impression: Calculus of distal left ureter, Recurrent nephrolithiasis, Intractable pain Prescriptions: No Action citalopram 20 mg tablet 20 mg PO DAILY trazodone 100 mg tablet 100 mg PO QHS nitrofurantoin macrocrystal 100 mg capsule 100 mg PO QHS Qty: 90 3RF Rx Instructions: must administer with a meal/food tramadol 50 MG tablet 50 mg PO Q4H PRN PRN (Reason: Pain) 3 Days Qty: 20 0RF ketorolac 10 mg tablet 10 mg PO Q8H PRN (Reason: pain) 5 Days Qty: 15 0RF Primary Care Provider: Haritha Sanchez NP Referrals: Haritha Sanchez NP, FRENCH FOLDER-C [Primary Care Provider] - Disposition Disposition: Acute Care [facility]
[2022-06-16 11:51] LABS: Mucous, Urine 0 SEEN /hpf (<or=2+); Red Blood Cells-Urine 0 SEEN /hpf (0-5)
[2022-06-16 12:01] LABS: Absolute Lymphocyte Count 1.28 X10^3/uL (0.83-4.51); Absolute Neutrophil Count 5.4 X10^3/uL (2.0-7.7); Basophil# 0.07 X10^3/uL; Basophil% 0.9 % (0-1); Eosinophil# 0.32 X10^3/uL; Eosinophils% 4.2 % (0-5); Hematocrit 43.2 % (37-47); Hemoglobin 14.2 g/dL (12.0-15.0); Lymphocyte # 1.28 X10^3/ul (0.83-4.51); Mean Corp Hgb Conc 32.9 g/dL (32-36); Mean Corpuscular Hgb 30.9 pg (27.0-32.0); Mean Corpuscular Volume 94.1 fL (81-99); Mean Platelet Vol. 12.1 fl (6.2-12.0); Monocyte% 5.3 % (0-10); NRBC Flagged by Analyzer 0 % (0-5); Neutrophil # 5.42 X10^3/uL (2.7-7.7); Neutrophil % 72.1 % (47-70); Platelet Count 249 K/mm3 (150-450); RBC Distribution Width CV 12.6 % (11.6-14.6); RBC Distribution Width SD 43.6 fl (35.1-43.9); Red Blood Count 4.59 M/mm3 (4.2-5.4); White Blood Count 7.5 K/mm3 (4.4-11.0)
[2022-06-16] MEDS: Ondansetron 4 MG/2 ML Vial IV ×2 (12:09→15:58)
[2022-06-16] MEDS: HYDROmorphone 1 MG/ML Syringe 0.5 MG IV (12:09)
[2022-06-16 12:13] LABS: Anion Gap 5 (5-15); BUN 15 mg/dL (7-18); BUN/Creat Ratio 12.9 RATIO (10-20); Calcium,Total 9.3 mg/dL (8.5-10.1); Chloride 106 mmol/L (98-107); Creatinine, Serum 1.16 mg/dL (0.55-1.02); EST Glomerular Filtration Rate 53 mL/min (>60); Est Glom Filt Rate - Afr Amer 64 mL/min (>60); Estimated Creatinine Clearance 50.66 ml/min; Glucose 125 mg/dL (74-106); Potassium 3.6 mmol/L (3.5-5.1); Sodium Level 139 mmol/L (136-145)
[2022-06-16 12:23] LABS: Color, Urine Yellow (Yellow); Glucose, Dipstick Normal (Normal); Ketone-Dipstick Negative (Negative); Leukocyte Esterase-Dipstick 25 /ul (Negative); Nitrite-Dipstick Negative (Negative); Occult Blood-Urine 10 /ul (Negative); Protein-Dipstick Negative (Negative); Urine Bilirubin Dipstick Negative (Negative); Urine Clarity Sl. Cloudy (Clear); Urine Urobilinogen Normal (Normal)
--- NOTE | 2022-06-16 12:27 | ED.RN ---
Dr Prabhakar called and stated nothing to eat or drink for pt, possible surgery today. Pt aware.
[2022-06-16 12:43] LABS: Bacteria 2+ /hpf (None Seen); Squamous Epithelial Cells - UA 0-5 SEEN /hpf (5-10); White Blood Cells 0-5 SEEN /hpf (0-5)
--- NOTE | 2022-06-16 12:44 | NURSING ---
309 OBS ANJELICA LEFT DISTAL URETERAL CALCULUS, INTRACTABLE PAIN
[2022-06-16] MEDS: Ketorolac 30 MG/ML Syringe IV ×2 (13:25→20:13)
[2022-06-16] MEDS: HYDROmorphone 0.5 MG/0.5 ML SYRINGE IV (15:58)
[2022-06-16] MEDS: 0.9% Saline Lock 10 ML Syringe IV ×2 (15:59→20:14)
--- NOTE | 2022-06-16 17:07 | PCM.HP.STD ---
HPI - General General Date of Admission: 06/16/22 Date of Service: 06/16/22 Chief Complaint: Left ureteral calculi with obstruction HPI Narrative MARLENA MARRERO, is a 51 F who presents to the emergency room with severe renal colic on the left side she has a 7 mm stone in the distal left ureter causing severe obstruction and pain she is not been able to manage the pain at home so she came to emergency room where takers for surgery today for ureteroscopy laser of the stone and stent placement if possible. [facility] Medical History Hx of renal impairment Ovarian cyst Personal history of kidney stones Tubal Home Medications trazodone 100 mg tablet 200 mg PO QHS 10/12/21 [History Last Taken Unknown] ketorolac 10 mg tablet 10 mg PO Q8H PRN pain 5 days #15 tabs 03/15/22 [Rx Last Taken Unknown] nitrofurantoin macrocrystal 100 mg capsule 100 mg PO QHS Check with primary doctor 06/16/22 [History Last Taken Unknown] paroxetine HCl 40 mg tablet (Paxil) 40 mg PO DAILY Check with primary doctor 06/16/22 [History Last Taken Unknown] Allergy/AdvReac Type Severity Reaction Status Date / Time meperidine HCl [From Demerol] Allergy Other Verified 06/16/22 10:38 morphine Allergy Rash Verified 06/16/22 10:38 oxycodone HCl [From Percocet] AdvReac Nausea Verified 06/16/22 10:38 Family History Mother Colon cancer Father Diabetes Surgical History History of Hx of tubal ligation Social History (Updated 06/16/22 @ 13:42 by Lia Barajas) housing: condominium number of children: 2 current occupational status: employed current occupation: [employer] Smoking Status: Never smoker substance use type: does not use ROS Constitutional Constitutional: Denies chills, fever(s) or malaise Eyes Eyes: Denies blurry vision or change in vision ENT HEENT: Reports none Cardiovascular Cardiovascular: Denies chest pain or palpitations Respiratory/Chest Respiratory/Chest: Denies cough or shortness of breath with exertion Gastrointestinal Gastrointestinal: Denies abdominal pain, constipation or diarrhea Musculoskeletal Musculoskeletal: Denies back pain, joint stiffness or joint swelling Integumentary Integumentary: Denies dry skin, jaundice, lesions or rash Neurologic Neurologic: Denies confusion, syncope or weakness Psychiatric Psychiatric: Reports none; Denies anxiety or depression Endocrine Endocrinology: Denies excessive sweating, fatigue or flushing Hematologic/Lymphatic Hematologic/Lymphatic: Denies anemia, easy bleeding or easy bruising Vital Signs Vital Signs Vital Signs: 06/16/22 10:36 06/16/22 11:50 06/16/22 13:00 Temperature 98 F 98.0 F Temperature Source Temporal Temporal Pulse Rate 77 65 Respiratory Rate 18 18 Respiratory Effort Normal Non-Labored Respiratory Depth Respiratory Pattern Normal Blood Pressure 121/94 H 127/75 H Blood Pressure Mean 103 92 Blood Pressure Source Blood Pressure Position Blood Pressure Location Pulse Ox 99 97 Oxygen Delivery Method Room Air Room Air 06/16/22 13:28 06/16/22 12:18 06/16/22 15:00 Temperature 97.9 F 97.6 F L Temperature Source Oral Oral Pulse Rate 57 L 65 Respiratory Rate 20 H 18 Respiratory Effort Normal Non-Labored Respiratory Depth Normal Respiratory Pattern Normal Blood Pressure 107/61 112/69 Blood Pressure Mean 76 83 Blood Pressure Source Monitor Monitor Blood Pressure Position Semi-Fowlers Semi-Fowlers Blood Pressure Location Right Arm Right Arm Pulse Ox 99 100 Oxygen Delivery Method Room Air Room Air Room Air Weight Weight: 76.814 kg Body Mass Index (BMI) 29.0 Physical Exam Const alert and oriented x3 General Appearance: cooperative HEENT normocephalic and head/scalp atraumatic Eyes PERRL and EOMs intact bilaterally Neck supple, no JVD and no carotid bruits Resp normal respiratory effort, normal air movement and clear to auscultation bilaterally Cardio regular rate and no murmurs GI normal to inspection, nondistended, normoactive bowel sounds and soft to palpation Extremity normal capillary refill General Extremity: no tenderness to palpation of joints or extremities; Negative for edema Skin no rashes or lesions noted and no wounds General Skin Exam: no breakdown Neuro CN's II-XII intact bilaterally Psych affect normal Appearance: appropriate Results Medical Records Data Attestation: I reviewed the patient's medical records Lab / Micro Data Result Diagrams: 06/16/22 11:55 06/16/22 11:55 Labs: Laboratory Results - last 24 hr 06/16/22 11:45: Urine Color Yellow, Urine Clarity Sl. Cloudy, Urine pH 6.0, Ur Specific [place] 1.020, Urine Protein Negative, Urine Glucose (UA) Normal, Urine Ketones Negative, Urine Occult Blood 10 H, Urine Nitrite Negative, Urine Bilirubin Negative, Urine Urobilinogen Normal, Ur Leukocyte Esterase 25 H, Urine RBC 0 SEEN, Urine WBC 0-5 SEEN, Ur Squamous Epith Cells 0-5 SEEN, Urine Bacteria 2+, Urine Mucus 0 SEEN 06/16/22 11:55: WBC 7.5, RBC 4.59, Hgb 14.2, Hct 43.2, MCV 94.1, MCH 30.9, MCHC 32.9, RDW Std Deviation 43.6, RDW Coeff of Dion 12.6, Plt Count 249, MPV 12.1 H, Immature Gran % (Auto) 0.500, Neut % (Auto) 72.1 H, Lymph % (Auto) 17.0 L, [place] % (Auto) 5.3, Eos % (Auto) 4.2, Baso % (Auto) 0.9, Absolute Neuts (auto) 5.4, Absolute Lymphs (auto) 1.28, Nucleated RBC % 0 06/16/22 11:55: Sodium 139, Potassium 3.6, Chloride 106, Carbon Dioxide 28.0, Anion Gap 5, BUN 15, Creatinine 1.16 H, Estim Creat Clear Calc 50.66, Est GFR (MDRD) Af Amer 64, Est GFR (MDRD) Non-Af 53 L, BUN/Creatinine Ratio 12.9, Glucose 125 H, Calcium 9.3 Assessment & Plan Assessment/Plan (1) Calculus of distal left ureter: PLAN: Plan to proceed with left ureteroscopy laser lithotripsy of stone (2) Intractable pain: PLAN: Pain control with [place] afterwards.
[2022-06-16] MEDS: Cefazolin 1 GM/50 ML BAG IV (17:10)
--- NOTE | 2022-06-16 17:12 | PCM.DC ---
Discharge Instructions Diet Discharge Diet: No restrictions and Light diet - advance as tolerated Activity Discharge Activity: Return to Normal Activity Follow Up Care Please Follow Up With: Waylon Prabhakar MD When: Lasered stone completely and removed, call for an appointment next week to remove stent Test Results: Test results from this visit will be discussed in further detail at your follow-up appointment, if applicable. Discharge Plan Admission Admit Date/Time: 06/16/22 12:20 Primary Reason for Your Visit: kidney stone Attending Provider: Waylon Prabhakar Primary Care Provider: Haritha Sanchez NP Discharge Orders/Prescriptions Prescriptions: New ciprofloxacin HCl [Cipro] 500 mg tablet 500 mg PO BID Qty: 6 0RF ketorolac 10 mg tablet 10 mg PO Q6H PRN (Reason: pain) 5 Days Qty: 10 0RF Continued trazodone 100 mg tablet 200 mg PO QHS ketorolac 10 mg tablet 10 mg PO Q8H PRN (Reason: pain) 5 Days Qty: 15 0RF paroxetine HCl [Paxil] 40 mg Tablet 40 mg PO DAILY nitrofurantoin macrocrystal 100 mg capsule 100 mg PO QHS Rx Instructions: must administer with a meal/food Referrals / Follow Up: Waylon Prabhakar MD [Med Staff - Active Staff] - Haritha Sanchez NP, OUTSIDE MAINTENANCE WORKER-C [Primary Care Provider] -
--- NOTE | 2022-06-16 17:42 | OP.PCM_ITS ---
Report of Operation Date of Procedure: 06/16/22 Pre-Operative Diagnosis: Left ureteral calculi with high-grade obstruction Post-Operative Diagnosis: Same Surgery/Procedure Performed:: Cystoscopy left ureteroscopy laser lithotripsy of stone and stent placement Description of Surgical Findings:: 51-year-old female presents to the emergency room today with severe renal colic case I did see her last week for the same stone she was scheduled for outpatient surgery but she was just in so much pain that she went to the emergency room so when taken to surgery today to treat the stone and place a stent. She understands is possible I may not be able to treat the stone and if that is the case I just put a stent in let the ureter dilate and bring her back at the next operative setting to try to treat the stone Patient was taken back to the operating room after smooth induction of general anesthesia she was placed in dorsolithotomy position. 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 and a psoas hitch so she had this reimplanted in the dome of the bladder looked at this was looked normal I then went to the left side and identified the left ureteral orifice I advanced a 0.038 Glidewire was able to get into the ureter could feel the stone on the wire and then advanced this up past the stone, then placed a second wire past the stone after getting double access then over the working wire I balloon dilated the distal ureter with a 12 [place]e balloon dilator after balloon dilating this for 2 minutes then I left the wires in place and went over the working wire with the semirigid ureteroscope was able to get into the ureter and immediately encountered the stone stuck in the distal ureter, then we used a 270 ?m laser fiber I completed laser lithotripsy and the stone was broken up little tiny pieces all the pieces then flushed into the bladder and a successful treatment of the stone with laser and all the pieces then passed into the bladder. Her distal ureter was fairly inflamed so I decided to leave a stent and then over the safety wire I backloaded over the cystoscope and placed a 6 [place] by 26 cm stent up into the left kidney was coiled in the kidney and bladder in good position the bladder was drained patient anesthetic was reversed. Successful treatment of her distal obstructing stone and stent placement need to see her next week for cystoscopy stent removal in the office. She will be discharged home today.. Surgeon: Waylon Prabhakar Type of Anesthesia: General Drains: stent left side Admit VTE Documentation VTE Present on Admission: No VTE Mechan Device Prophylaxis: SCD's
[2022-06-16] MEDS: DiphenhydrAMINE 25 MG Capsule PO (21:26)
[2022-06-16] MEDS: Phenazopyridine 95 MG Tablet 200 MG PO (22:57)
[2022-06-16] MEDS: traZODone 100 MG Tablet 200 MG PO (23:02)
[2022-06-17] MEDS: 0.9% Saline Lock 10 ML Syringe IV (03:01)
[2022-06-17] MEDS: Ondansetron 4 MG/2 ML Vial IV (03:01)
[2022-06-17 04:20] VITALS: BP 93/51; PULSE 75; RESP 16; TEMP 36.7; O2SAT 94
[2022-06-17 05:24] VITALS: BP 104/56; PULSE 75
--- NOTE | 2022-06-17 06:45 | DS.PCM_ITS ---
Providers Date of Admission: 06/16/22 Primary Care Physician: LURDES SinclairC Reason For Visit: LEFT DISTAL URETERAL CALCULUS, INTRACTABLE PAIN Diagnosis Discharge Diagnosis (1) Calculus of distal left ureter: Status: Acute Code(s): N20.1 - Calculus of ureter Plan: Plan to proceed with left ureteroscopy laser lithotripsy of stone (2) Intractable pain: Status: Acute Code(s): R52 - Pain, unspecified Plan: Pain control with [place] afterwards. Medications at Discharge Home Medications trazodone 100 mg tablet 200 mg PO QHS 10/12/21 ketorolac 10 mg tablet 10 mg PO Q8H PRN pain 5 days #15 tabs 03/15/22 ciprofloxacin HCl 500 mg tablet (Cipro) 500 mg PO BID #6 tabs 06/16/22 ketorolac 10 mg tablet 10 mg PO Q6H PRN pain 5 days #10 tabs 06/16/22 nitrofurantoin macrocrystal 100 mg capsule 100 mg PO QHS Check with primary doctor 06/16/22 paroxetine HCl 40 mg tablet (Paxil) 40 mg PO DAILY Check with primary doctor 06/16/22 Hospital Course Summary of Care Provided Hospital Course: Patient was admitted for a 7 mm obstructive distal ureteral calculi she underwent ureteroscopy laser lithotripsy of stone removal fragments and placement of a stent she stayed overnight for pain control doing well this morning discharged home today she can follow-up next week for stent removal Physical Exam Const alert and oriented x3 General Appearance: cooperative HEENT normocephalic, head/scalp atraumatic, EAC's normal and TM's normal bilaterally Eyes PERRL and EOMs intact bilaterally Pupil: sluggish Neck no lymphadenopathy, supple and no JVD General: trachea midline Lymph Lymphatic: no lymphadenopathy noted, lymphedema and lymphadenopathy Resp normal respiratory effort, normal air movement and clear to auscultation bi laterally Cardio regular rate, regular rhythm and peripheral pulses 2+ throughout GI soft to palpation, non-tender and non-distended Extremity normal capillary refill and no clubbing, cyanosis or edema General Extremity: no tenderness to palpation of joints or extremities Skin no rashes or lesions noted General Skin Exam: turgor normal Lesions: no lesions Rashes: no rashes Neuro CN's II-XII intact bilaterally Speech: speech normal Motor Exam: strength 5/5 throughout; Negative for general weakness Psych thought process normal, cooperative and affect normal Appearance: appropriate Medical Records Data Attestation: I reviewed the patient's medical records Weight / BMI Weight Weight: 76.814 kg Body Mass Index (BMI) 29.0 ABG / Lab / Microbiology Data Result Diagrams: 06/16/22 11:55 06/16/22 11:55 Laboratory: Laboratory Results - last 24 hr 06/16/22 11:45: Urine Color Yellow, Urine Clarity Sl. Cloudy, Urine pH 6.0, Ur Specific [place] 1.020, Urine Protein Negative, Urine Glucose (UA) Normal, Urine Ketones Negative, Urine Occult Blood 10 H, Urine Nitrite Negative, Urine Bilirubin Negative, Urine Urobilinogen Normal, Ur Leukocyte Esterase 25 H, Urine RBC 0 SEEN, Urine WBC 0-5 SEEN, Ur Squamous Epith Cells 0-5 SEEN, Urine Bacteria 2+, Urine Mucus 0 SEEN 06/16/22 11:55: WBC 7.5, RBC 4.59, Hgb 14.2, Hct 43.2, MCV 94.1, MCH 30.9, MCHC 32.9, RDW Std Deviation 43.6, RDW Coeff of Dion 12.6, Plt Count 249, MPV 12.1 H, Immature Gran % (Auto) 0.500, Neut % (Auto) 72.1 H, Lymph % (Auto) 17.0 L, [place] % (Auto) 5.3, Eos % (Auto) 4.2, Baso % (Auto) 0.9, Absolute Neuts (auto) 5.4, Absolute Lymphs (auto) 1.28, Nucleated RBC % 0 06/16/22 11:55: Sodium 139, Potassium 3.6, Chloride 106, Carbon Dioxide 28.0, Anion Gap 5, BUN 15, Creatinine 1.16 H, Estim Creat Clear Calc 50.66, Est GFR (MDRD) Af Amer 64, Est GFR (MDRD) Non-Af 53 L, BUN/Creatinine Ratio 12.9, Glucose 125 H, Calcium 9.3 D/C Instructions Discharge Diet: No restrictions and Light diet - advance as tolerated Please Follow Up With: Waylon Prabhakar MD When: Lasered stone completely and removed, call for an appointment next week to remove stent Meaningful Use Info Meaningful Use Diagnoses (Choose all that apply): None applicable Discharge Plan Admission Admit Date/Time: 06/16/22 12:20 Primary Reason for Your Visit: kidney stone Attending Provider: Waylon Prabhakar Primary Care Provider: Haritha Sanchez NP Discharge Orders/Prescriptions Prescriptions: New ciprofloxacin HCl [Cipro] 500 mg tablet 500 mg PO BID Qty: 6 0RF ketorolac 10 mg tablet 10 mg PO Q6H PRN (Reason: pain) 5 Days Qty: 10 0RF Continued trazodone 100 mg tablet 200 mg PO QHS ketorolac 10 mg tablet 10 mg PO Q8H PRN (Reason: pain) 5 Days Qty: 15 0RF paroxetine HCl [Paxil] 40 mg Tablet 40 mg PO DAILY nitrofurantoin macrocrystal 100 mg capsule 100 mg PO QHS Rx Instructions: must administer with a meal/food Referrals / Follow Up: Waylon Prabhakar MD [Med Staff - Active Staff] - Haritha Sanchez NP, PATTERNMAKER APPRENTICE WOOD-C [Primary Care Provider] -
[2022-06-17] MEDS: Acetaminophen 500 MG Tablet PO (08:40)
[2022-06-17] MEDS: Paroxetine 20 MG Tablet 40 MG PO (08:41)
[2022-06-17 09:00] VITALS: BP 96/76; PULSE 77; RESP 14; TEMP 36.9; O2SAT 96
== END 2022-06-17 10:20 | disposition home or self-care (01) ==
LOC: ED 12:00 → MS3 12:22
PROVIDERS: Admitting Provider Urology; Emergency Provider Emergency Medicine; PCP Nurse Practitioner Family; Visit Provider Urology
PROC: 0TJ98ZZ Inspection of Ureter, Via Natural or Artificial Opening Endoscopic (ICD-10-PCS; CPT 52352; principal; 2022-06-16 16:45)
DX: N20.1 Calculus of ureter (principal); N13.9 Obstructive and reflux uropathy, unspecified
CPT/HCPCS: 52356; 00918; 76000; 80048; 81001; 85025; 96374; 96375; 96376; 99218; 99285; A4216; C1769; C2617; G0378; J2405

== ENCOUNTER → 2024-04-20 | Outpatient (CLI) | payer OTHER, MEDICAID, SELFPAY ==
--- NOTE | 2024-04-20 12:29 | NEURO_ITS ---
NCS and/or EMG Patient Report Ordering Doctor: Nicholas Zendejas DATE OF SERVICE: 04/20/24 Ashley presents for electrodiagnostic testing of the right upper limb. She reports having had cervical fusion in February 2024. She reports increased pain in the right arm with numbness in the right hand. Electrodiagnostic findings: Right median motor nerve demonstrates normal distal latency, amplitude with borderline reduced conduction velocity. Right ulnar motor response is within normal limits. Normal right median and right ulnar F- waves. Median sensory latency is normal at the wrist and palm. Normal ulnar and radial sensory responses. Needle EMG testing was performed in the right upper limb. All muscles tested in the right arm showed no evidence of denervation with normal motor unit action potentials. 1+ fibrillations were noted in the right cervical paraspinals. Electrodiagnostic impression: This is a normal electrodiagnostic study of the right upper limb. There is no electrodiagnostic evidence for peripheral neuropathy including carpal tunnel or cubital tunnel syndrome. There is no electrodiagnostic evidence for cervical radiculopathy. Fibrillation potentials are often seen in the cervical paraspinals following spine surgery. Multi Select Codes Neurology Neurology Interp Codes: 24133-85 Musc test done w/n test comp (interp) and 05808-32 Nrv cndj test 7-8 studies (interp)
== END | disposition home or self-care (01) ==
PROVIDERS: PCP Nurse Practitioner Family; Referring Provider Orthopaedic Surgery; Visit Provider Orthopaedic Surgery
DX: M50.323 Other cervical disc degeneration at C6-C7 level (principal); M50.322 Other cervical disc degeneration at C5-C6 level; M47.892 Other spondylosis, cervical region
CPT/HCPCS: 95886; 95910

== ENCOUNTER → 2024-08-01 | Outpatient (CLI) | payer MEDICAID, SELFPAY ==
--- NOTE | 2024-08-01 11:00 | MRI_ITS ---
STUDY: MRI LEFT ANKLE WITHOUT CONTRAST REASON FOR EXAM: Female, 53 years old. Pain. TECHNIQUE: Standardized fat and water weighted pulse sequences were obtained in all 3 orthogonal planes. COMPARISON: None. FINDINGS: Normal posterior tibialis tendon. Normal flexor digitorum longus tendon. Normal flexor hallucis longus tendon. Normal peroneus longus and brevis tendons. Normal tibialis anterior tendon. Normal extensor hallucis longus tendon. Normal extensor digitorum longus tendons. Normal Achilles tendon and teno-osseous insertion. There is an interstitial/intrasubstance tear of the origin of the plantar fascia (sagittal STIR series 11 images 13-14). There is a tiny plantar calcaneal spur (sagittal T1 series 10 image 14). Normal intrinsic muscles of the rearfoot. Normal distal tibiofibular syndesmotic ligamentous complex. Normal lateral ligamentous complex. Normal subtalar ligaments and sinus tarsi. Normal deltoid ligamentous complex. Normal plantar calcaneonavicular (spring) ligament. Normal tibiotalar articulation. Normal talar dome. Normal subtalar articulations. Normal talonavicular articulation. Normal calcaneocuboid articulation. Normal navicular-cuneiform articulations. There is mild subcutaneous soft tissue edema in the heel fat-pad (sagittal STIR series 11 image 17). MRI/Lower Ext Joint Only (Routine) IMPRESSION: Interstitial/intrasubstance tear of the origin of the plantar fascia. Tiny plantar calcaneal spur. Mild subcutaneous soft tissue edema in the heel fat-pad. Electronically Signed: Damion Barcenas MD at 14:31 EDT ,
== END | disposition home or self-care (01) ==
LOC: MRI 10:35
PROVIDERS: Referring Provider Podiatrist; Visit Provider Podiatrist
DX: M72.2 Plantar fascial fibromatosis (principal)
CPT/HCPCS: 73721

== ENCOUNTER 2024-10-28 08:43 | Day surgery (SDC) | payer MEDICAID, SELFPAY ==
[2024-10-28] VITALS (8 sets, daily range): BP systolic 104–140; BP diastolic 67–87; PULSE 79–85; RESP 16; TEMP 36.1–36.6; O2SAT 96–98; BMI 33.3
[2024-10-28] MEDS: 0.9% Normal Saline (1000mL) 1,000 ML 15 ML IV (09:13)
--- NOTE | 2024-10-28 09:24 | PCM.PRE.AN2 ---
ASA Classification* ASA Classification ASA Classification: 2 Assessment & Plan Anesthesia* Anesthesia Assessment Anesthesia Assessment: Discussed sedation and/or anesthesia options, risks, benefits, and alternatives with patient/parents/legal guardian/POA. Questions invited. The patient/parents/legal guardian/POA seems to understand and agrees to proceed with anesthesia plan. Reviewed the physical assessment, medical history, allergy history and patient home medications list prior to surgery/procedure/anesthetic and documented any changes. Performed airway and anesthesia risk assessments. Anesthesia Type Anesthesia Type: General and Block (Patient is consented for a popliteal block.) History Source History Obtained from:: Patient and Chart Anesthesia Focused Assessment* Temperature: 97.8 F Pulse Rate: 82 Blood Pressure: 104/67 Respiratory Rate: 16 Pulse Ox: 98 Oxygen Delivery Method: Room Air Airway Assessment Mouth opens: >3 cm Mallampati Score: IV Teeth Condition: Caps/Crowns (Patient has caps #8 and 9. They are tight.) Neck Range of motion (ROM): Limited ROM (Patient has cervical fusion last February.) Focused Labs Anesthesia Preop lab: CBC WBC 7.5 K/mm3 (4.4-11.0) 06/16/22 11:55 RBC 4.59 M/mm3 (4.2-5.4) 06/16/22 11:55 Hgb 14.2 g/dL (12.0-15.0) 06/16/22 11:55 Hct 43.2 % (37-47) 06/16/22 11:55 Plt Count 249 K/mm3 (150-450) 06/16/22 11:55 CHEMISTRY Potassium 3.6 mmol/L (3.5-5.1) 06/16/22 11:55 Sodium 139 mmol/L (136-145) 06/16/22 11:55 BUN 15 mg/dL (7-18) 06/16/22 11:55 Creatinine 1.16 mg/dL (0.55-1.02) H 06/16/22 11:55 Glucose 125 mg/dL (74-106) H 06/16/22 11:55 TSH 0.77 uIU/mL (0.358-3.74) 07/02/17 12:38 COAG HCG, Quant < 1 mIU/mL (<9 non-preg) 07/02/17 12:38 Urine Test Negative Negative 10/12/21 13:50 Pre-Assessment Diagnosis/Proposed Procedure Planned Operative Procedure(s): (L) Endoscopic Plantar Fasciotomy of the left foot Anesthesia History 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 When Was Last Pacemaker Check QUESTION #4 FULL TEXT: You/Your Family Experience fever (hyperthermia) with Anesthesia Last Oral Intake Last Oral intake: Last Oral Intake NPO since 23:00 10/28/24 09:05 Meds taken in AM with sips of Yes 10/28/24 09:05 water? Meds patient instructed to see med list 10/28/24 09:05 take am of surgery Any additional information?: Yes Meds taken in AM with sips of water?: Yes PONV PONV - parts salesperson: PONV - parts salesperson Female Yes 10/25/24 11:38 HX of Motion Sickness Yes 10/25/24 11:38 HX of N/V After Surgery Yes 10/25/24 11:38 Non-Smoker Yes 10/25/24 11:38 Duration of Surgery greater Yes 10/25/24 11:38 than 60 minutes Number of Risk Factors 5 10/25/24 11:38 PONV Score Severe Risk 10/25/24 11:38 Height & Weight Height & Weight: Anesthesia: Height & Weight Height 5 ft 4 in 10/28/24 09:05 Weight: 88 kg 10/28/24 09:05 Body Mass Index (BMI) 33.3 10/28/24 09:05 Respiratory Assessment Respiratory Assessment - parts salesperson: Respiratory Tract Infection Hx - parts salesperson Hx Respiratory Tract Infection No 10/25/24 11:38 STOP Sleep Apnea STOP Sleep Apnea - parts salesperson: STOP Sleep Apnea - parts salesperson Hx Hypertension No 10/25/24 11:38 Hx Sleep Apnea No 10/25/24 11:38 CPAP No 06/16/22 17:54 BIPAP No 02/20/16 09:11 Do you snore loudly (louder No 10/25/24 11:38 than talking or can be heard Do you often feel tired/ No 10/25/24 11:38 fatigued/ sleepy during daytime? Has anyone observed you stop No 10/25/24 11:38 breathing during sleep? STOP Results Negative 10/25/24 11:38 QUESTION #5 FULL TEXT : Do you snore loudly (louder than talking or can be heard through closed doors)? 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 Specify any problems Hx of Preganancy in last 3 N/A 10/25/24 11:38 Months Nurse Filling Out Transfusion NBUCHER 10/25/24 11:38 & Questions: Date: 10/25/24 10/25/24 11:38 Time: 11:39 10/25/24 11:38 Patient unable to answer at this time (ie. confused, unrespo /Reproduction History /Reproductive History - parts salesperson: /Reproductive Hx- parts salesperson Hx Now No 10/25/24 11:38 Gestational Age (in weeks): EDC: Hx Hx Para Hx Section SAB No 10/25/24 11:38 Active Medications Active Medications: Current Medications Generic Name Dose Route Start Last Admin Trade Name Freq PRN Reason Stop Dose Admin Cefazolin Sodium 2 gm/ N/A 20 mls @ 400 mls/hr 10/28/24 10:15 IV 10/28/24 10:17 PREOP ONE Sodium Chloride 1,000 mls @ 15 mls/hr 10/28/24 09:10 10/28/24 09:13 IV 10/31/24 03:49 15 mls/hr .Q48H QI Administration Protocol [facility] Medical History High cholesterol History of IBS GERD (gastroesophageal reflux disease) Depression Fatigue IBS (irritable bowel syndrome) Kidney stones Insomnia Anxiety Ovarian cyst Tubal Personal history of kidney stones Hx of renal impairment Home Medications ?Medication ?Instructions ?Recorded ?Last Taken ?Type trazodone 100 mg tablet 200 mg PO QHS 10/12/21 Unknown History nitrofurantoin macrocrystal 100 mg 100 mg PO QHS Check with primary 06/16/22 Unknown History capsule doctor citalopram 20 mg tablet 20 mg PO DAILY 08/05/22 Unknown History estradiol 1 mg tablet 1 mg PO DAILY 10/25/24 Unknown History medroxyprogesterone 5 mg tablet 5 mg PO DAILY 10/25/24 Unknown History metformin 500 mg tablet 500 mg PO DAILY 10/25/24 Unknown History omeprazole 20 mg capsule,delayed 20 mg PO DAILY 10/25/24 10/28/24 History release Allergy/AdvReac Type Severity Reaction Status Date / Time meperidine HCl (From Demerol) Allergy Other Verified 10/28/24 09:04 morphine Allergy Rash Verified 10/28/24 09:04 Family History Mother Colon cancer Father Diabetes Surgical History History of spinal fusion (~02/2024) History of elbow surgery History of lithotripsy H/O ovarian cystectomy H/O dilation and curettage Hx of tubal ligation History of Social History housing: condominium number of children: 2 current occupational status: employed current occupation: [employer] Smoking Status: Never smoker substance use type: does not use Review of Systems (Anesthesia) ROS Narrative System reviewed and no additional complaints, except as documented.
[2024-10-28] MEDS: Cefazolin 2 GM in Syringe IV (10:09)
[2024-10-28] MEDS: Bupivacaine Mpf 0.5% 30 ML VIAL (10:31)
[2024-10-28 10:45] LABS: Bedside Glucose 121 mg/dL (74-106)
--- NOTE | 2024-10-28 10:51 | PCM.OPRPT ---
Problems Associated Problem List Diagnoses (1) Plantar fascial fibromatosis: Operative Report (Standard) Operative Information Date of Procedure: 10/28/24 Pre-Operative Diagnosis: 1) Left foot plantar fasciitis Post-Operative Diagnosis: same Surgery/Procedure Performed: Endoscopic Plantar Fasciotomy to left foot field marketing manager: Yes Hairspring Assembler: oneil ruelas Tasks completed by payroll and benefits assistant: Opening, Closing, Opening & closing, Dissecting tissue and Insert Trochanter Type of Anesthesia: General RN Documented Start/Stop Times: Operation Date: 10/28/24 10:15 Case Time Into Pre-Op 10/28/24 09:05 Out of Pre-Op 10/28/24 10:06 Anesthesia Start 10/28/24 10:10 Into Room 10/28/24 10:10 Procedure Start 10/28/24 10:29 Procedure End 10/28/24 10:44 Into Recovery 10/28/24 10:50 Procedure Start Time: 10:20 Procedure Stop Time: 10:45 Select all DRAINS/GRAFTS/IMPLANTS that apply: None Special Medications: 10cc 0.5% marcaine plain Estimated Blood Loss: minimal Specimen collected: No Description of surgery: Patient brought back to the operating and placed comfortably in the supine position on the operating table. Well-padded left thigh tourniquet was applied to left lower extremity. Left lower extremity was scrubbed prepped draped in typical aseptic fashion. Once cleared by anesthesia left lower extremity was elevated exsanguinated tourniquet was inflated to 300 mmHg. A small incision linearly was drawn 1 cm distal to the medial calcaneal tubercle along the junction of the dorsal and plantar skin on the medial aspect of the heel this incision was made with a stab incision using a 15 blade through epidermis and dermis into subcutaneous tissue. A spatula was used to identify the tissue planes noting the inferior aspect of the plantar fascial and from medial to lateral a trocar with cannula were inserted and a lateral stab incision was made to allow for complete transection of the plantar fascia. Trocar was removed several cotton swabs were used to remove any interpositional tissue. A scope was then inserted from lateral to medial in the plantar fascial band central was noted. A a triangular blade was inserted from medial to lateral in the medial two thirds of the central band was released and the underlying intrinsic musculature was visualized. The plantar fascia itself was noted to be thickened at this time. The cannula and all instrumentation was removed from the foot the site was flushed with copious amounts of normal sterile saline. Skin closure performed with horizontal mattress 3-0 nylon. 10 cc half percent Marcaine plain were used using local infiltration technique. Site was dressed with Betadine Adaptic 4 x 4's Kerlix and Armando. Patient was transported to PACU vital signs stable and vascular status intact all digits for further monitoring prior to discharge. 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 Patient will maintain protected weightbearing to left lower extremity in cam boot. No complications No pathologic specimens Adequate release of the plantar fascia with visualization of underlying intrinsic musculature including abductor hallucis and flexor digitorum brevis Surgical Findings: As dictated above Complications Complications: No
--- NOTE | 2024-10-28 11:12 | PCM.POST.ANE ---
Anesthesia: Postop Eval I Current Vital Signs Temperature: 97 F Pulse Rate: 83 Blood Pressure: 127/75 Respiratory Rate: 16 Pulse Ox: 97 Oxygen Delivery Method: Room Air Assessment Airway patent: Yes Spontaneous unlabored respirations: Yes Mental status: Awake and Calm nausea: No Vomiting: No Anesthesia Complication: No Fluid Hydration Crystalloid volume administer (ml): 500 Total IV fluid infused: 500 Progress Note Anesthesia document: Postop Eval 1 completed: Yes
--- NOTE | 2024-10-28 21:28 | POSTOPAN2_ITS ---
Anesthesia Postop Eval I Sum Postop Eval Completion status Anesthesia document: Postop Eval 1 completed: Yes Anesthesia Postop Eval I Summary Anesthesia Postop Eval I Summary: Anesthesia Postop Eval I: Assessment Summary Airway patent Yes 10/28/24 11:13 [email or web address] Spontaneous unlabored Yes 10/28/24 11:13 [email or web address] respirations Mental status Awake,Calm 10/28/24 11:13 [email or web address] nausea No 10/28/24 11:13 [email or web address] Vomiting No 10/28/24 11:13 [email or web address] Anesthesia Postop Eval I: Fluid Summary Crystalloid volume administer 500 10/28/24 11:13 [email or web address] (ml) Colloids volume administered ( ml) Blood Product volume administered (ml) Total IV fluid infused 500 10/28/24 11:13 [email or web address] Anesthesia Postop Eval I: Summary Notes Anesthesia Complication No 10/28/24 11:13 [email or web address] Anesthesia Complication Comment: Post-operative progress note Anesthesia: Postop Eval II Evaluation Mental status: Awake and Calm Pain Level: 1 nausea: No Vomiting: No Complications Anesthesia Complication: No
--- NOTE | 2024-10-28 21:28 | PCM.POSTANE2 ---
Anesthesia Postop Eval I Sum Postop Eval Completion status Anesthesia document: Postop Eval 1 completed: Yes Anesthesia Postop Eval I Summary Anesthesia Postop Eval I Summary: Anesthesia Postop Eval I: Assessment Summary Airway patent Yes 10/28/24 11:13 [email or web address] Spontaneous unlabored Yes 10/28/24 11:13 [email or web address] respirations Mental status Awake,Calm 10/28/24 11:13 [email or web address] nausea No 10/28/24 11:13 [email or web address] Vomiting No 10/28/24 11:13 [email or web address] Anesthesia Postop Eval I: Fluid Summary Crystalloid volume administer 500 10/28/24 11:13 [email or web address] (ml) Colloids volume administered ( ml) Blood Product volume administered (ml) Total IV fluid infused 500 10/28/24 11:13 [email or web address] Anesthesia Postop Eval I: Summary Notes Anesthesia Complication No 10/28/24 11:13 [email or web address] Anesthesia Complication Comment: Post-operative progress note Anesthesia: Postop Eval II Evaluation Mental status: Awake and Calm Pain Level: 1 nausea: No Vomiting: No Complications Anesthesia Complication: No
== END 2024-10-28 11:58 | disposition home or self-care (01) ==
LOC: SDC 08:43 → AC 08:45
PROVIDERS: Referring Provider Podiatrist; Visit Provider Podiatrist
PROC: (CPT 29893; principal; 2024-10-28 10:00)
DX: M72.2 Plantar fascial fibromatosis (principal); F41.9 Anxiety disorder, unspecified; F32.A Depression, unspecified; Z79.84 Long term (current) use of oral hypoglycemic drugs; Z79.899 Other long term (current) drug therapy
CPT/HCPCS: 29893; 01464; 82962; J2405

== ENCOUNTER 2025-01-03 16:13 | Emergency (ER) | payer MEDICAID, SELFPAY ==
[2025-01-03 16:14] VITALS: BP 94/82; PULSE 100; RESP 18; TEMP 37.2; O2SAT 100; BMI 29.2
[2025-01-03] MEDS: Ondansetron 4 MG/2 ML Vial IV (16:45)
[2025-01-03] MEDS: HYDROmorphone 0.5 MG/0.5 ML SYRINGE IV (16:46)
[2025-01-03] MEDS: Ketorolac 15 MG/ML Vial IV (16:46)
[2025-01-03 16:49] LABS: Absolute Lymphocyte Count 1.83 X10^3/uL (0.83-4.51); Absolute Neutrophil Count 5.6 X10^3/uL (2.0-7.7); Basophil# 0.06 X10^3/uL; Basophil% 0.7 % (0-1); Eosinophil# 0.15 X10^3/uL; Eosinophils% 1.8 % (0-5); Hematocrit 37.6 % (37-47); Hemoglobin 12.6 g/dL (12.0-15.0); Lymphocyte # 1.83 X10^3/ul (0.83-4.51); Lymphocyte % 22.3 % (19-41); Mean Corp Hgb Conc 33.5 g/dL (32-36); Mean Corpuscular Hgb 30.4 pg (27.0-32.0); Mean Corpuscular Volume 90.8 fL (81-99); Mean Platelet Vol. 11.9 fl (6.2-12.0); Monocyte# 0.53 X10^3/uL; Monocyte% 6.5 % (0-10); NRBC Flagged by Analyzer 0 % (0-5); Neutrophil # 5.59 X10^3/uL (2.7-7.7); Neutrophil % 68.2 % (47-70); Platelet Count 320 K/mm3 (150-450); RBC Distribution Width CV 13.6 % (11.6-14.6); RBC Distribution Width SD 45.1 fl (35.1-43.9); Red Blood Count 4.14 M/mm3 (4.2-5.4); White Blood Count 8.2 K/mm3 (4.4-11.0)
--- NOTE | 2025-01-03 17:02 | ED.VIS.FEGU ---
HPI <RICCARDO Chicas - Last Filed: 01/03/25 21:41> HPI - Female History of Present Illness Chief Complaint: Flank Pain Narrative Narrative: Patient presenting today with right sided flank pain that started yesterday that has been gradually worsening. She does have a significant history of kidney stones, she reports that her symptoms today feel consistent with this. She follows with Dr. Prabhakar, she has had to have surgical removal of stones in the past. She denies fevers, chills, abdominal pain, and urinary symptoms. She reports nausea and vomiting from the pain. PFSH <RICCARDO Chicas - Last Filed: 01/03/25 21:41> [facility] Medical History High cholesterol History of IBS GERD (gastroesophageal reflux disease) Depression Fatigue IBS (irritable bowel syndrome) Kidney stones Insomnia Anxiety Ovarian cyst Tubal Personal history of kidney stones Hx of renal impairment Home Medications ?Medication ?Instructions ?Recorded ?Last Taken ?Type trazodone 100 mg tablet 200 mg PO QHS 10/12/21 Unknown History nitrofurantoin macrocrystal 100 mg 100 mg PO QHS Check with primary 06/16/22 Unknown History capsule doctor citalopram 20 mg tablet 20 mg PO DAILY 08/05/22 Unknown History estradiol 1 mg tablet 1 mg PO DAILY 10/25/24 Unknown History medroxyprogesterone 5 mg tablet 5 mg PO DAILY 10/25/24 Unknown History metformin 500 mg tablet 500 mg PO DAILY 10/25/24 Unknown History omeprazole 20 mg capsule,delayed 20 mg PO DAILY 10/25/24 10/28/24 History release docusate sodium 100 mg capsule 100 mg PO BID #20 caps 10/28/24 Unknown Rx enoxaparin 40 mg/0.4 mL 40 mg (0.4 mL) subcut DAILY 14 10/28/24 Unknown Rx subcutaneous syringe (Lovenox) days #5.6 mL oxycodone 5 mg tablet 5 mg PO Q6H PRN pain 7 days #28 10/28/24 Unknown Rx tabs ondansetron 4 mg disintegrating 4 mg PO Q8H PRN nausea and 01/03/25 Unknown Rx tablet vomiting #20 tabs Allergy/AdvReac Type Severity Reaction Status Date / Time meperidine HCl (From Demerol) Allergy Other Verified 01/03/25 16:14 morphine Allergy Rash Verified 01/03/25 16:14 Family History Mother Colon cancer Father Diabetes Surgical History History of spinal fusion (~02/2024) History of elbow surgery History of lithotripsy H/O ovarian cystectomy H/O dilation and curettage Hx of tubal ligation History of [facility] current occupational status: employed current occupation: [employer] Smoking Status: Never smoker substance use type: does not use ROS <RICCARDO Chicas - Last Filed: 01/03/25 21:41> ROS ED Constitutional Constitutional ED: Denies chills or fever(s) Cardiovascular Cardiovascular: Denies chest pain Respiratory/Chest Respiratory/Chest: Denies dyspnea Gastrointestinal Gastrointestinal: Denies abdominal pain, nausea or vomiting Genitourinary Genitourinary ED: Reports other Details: Right flank pain ; Denies dysuria, hematuria or urinary frequency Integumentary Denies rash Neurologic Neurologic: Denies weakness EXAM <RICCARDO Chicas - Last Filed: 01/03/25 21:41> Physical Exam Const Vital Signs: 01/03/25 16:14 01/03/25 17:16 01/03/25 18:20 Temperature 98.9 F 98 F 98.9 F Temperature Source Oral Temporal Oral Pulse Rate 100 71 74 Respiratory Rate 18 14 18 Blood Pressure 94/82 H 121/54 H 121/54 H Blood Pressure Mean 86 76 76 Pulse Ox 100 98 99 Oxygen Delivery Method Room Air Room Air Room Air 01/03/25 20:00 01/03/25 20:57 Temperature 98.5 F 98.5 F Temperature Source Oral Pulse Rate 75 70 Respiratory Rate 17 18 Blood Pressure 129/71 H 114/72 Blood Pressure Mean 90 86 Pulse Ox 98 97 Oxygen Delivery Method Room Air Positive well nourished, well developed and no apparent distress General Appearance ED: well developed HEENT Reports normocephalic and head/scalp atraumatic Mouth ED: Yes moist mucous membranes normal Eyes PERRL and EOMs intact bilaterally Neck full ROM and supple Chest Wall inspection of chest normal Resp normal respiratory effort and clear to auscultation bilaterally Cardio regular rate and regular rhythm GI soft to palpation, non-tender, non-distended and no masses Back/Spine normal ROM and normal to inspection General Back: CVA tenderness right Extremity normal to inspection and full ROM Neuro oriented x3, CN's II-XII intact bilaterally, moves all extremities, no focal motor deficits and no sensory deficits noted Sensorium / Orientation: awake and alert Psych mental status grossly normal and thought process normal Skin no rashes or lesions noted and no wounds <Dr. Salinas Mcintyre MD - Last Filed: 01/03/25 20:49> Physical Exam Const Vital Signs: 01/03/25 16:14 01/03/25 17:16 01/03/25 18:20 Temperature 98.9 F 98 F 98.9 F Temperature Source Oral Temporal Oral Pulse Rate 100 71 74 Respiratory Rate 18 14 18 Blood Pressure 94/82 H 121/54 H 121/54 H Blood Pressure Mean 86 76 76 Pulse Ox 100 98 99 Oxygen Delivery Method Room Air Room Air Room Air 01/03/25 20:00 01/03/25 20:57 Temperature 98.5 F 98.5 F Temperature Source Oral Pulse Rate 75 70 Respiratory Rate 17 18 Blood Pressure 129/71 H 114/72 Blood Pressure Mean 90 86 Pulse Ox 98 97 Oxygen Delivery Method Room Air [facility] <RICCARDO Chicas - Last Filed: 01/03/25 21:41> [facility] Narrative Medical decision making narrative: Patient presenting today with concerns for right-sided kidney stone. She has had right flank pain since yesterday. Symptoms feel consistent with previous kidney stones. Patient will be medicated with IV Toradol and Dilaudid for pain as well as Zofran and IV fluids. Labs were obtained, her CBC and BMP are unremarkable, UA negative for UTI, there is 2+ bacteria but she does not have any urinary symptoms. CT scan of the abdomen pelvis without contrast negative for ureteral lithiasis, she does have nonobstructing stones in her kidneys bilaterally. Reexamination she still reports pain, and has not improved despite 2 rounds of Dilaudid and the Toradol. Therefore, abdominal CTA obtained to assess for acute renal infarct. Renal artery and veins are within normal limits, no acute findings. We did attempt to get a hold of her urologist, he is unavailable currently. On reexamination she does report movement with bending over, ambulating, and moving her right leg. Suspect that this could possibly be musculoskeletal. She has no overlying rash but this could be early herpes zoster. She does have pain medication at home, she does not want anything further for home. I recommended she follow-up with urology and her PCP. She will be discharged home in stable condition. Lab Data Attestation: I reviewed the patient's lab results. Labs: Laboratory Results - last 24 hr 01/03/25 01/03/25 16:40 18:11 WBC 8.2 RBC 4.14 L Hgb 12.6 Hct 37.6 MCV 90.8 MCH 30.4 MCHC 33.5 RDW Std Deviation 45.1 H RDW Coeff of Dion 13.6 Plt Count 320 MPV 11.9 Immature Gran % (Auto) 0.500 Neut % (Auto) 68.2 Lymph % (Auto) 22.3 [place] % (Auto) 6.5 Eos % (Auto) 1.8 Baso % (Auto) 0.7 Absolute Neuts (auto) 5.6 Absolute Lymphs (auto) 1.83 Nucleated RBC % 0 Sodium 137 Potassium 3.7 Chloride 104 Carbon Dioxide 20.1 L Anion Gap 12 BUN 14 Creatinine 0.95 Estim Creat Clear Calc 69.74 Est GFR (MDRD) Non-Af 72 BUN/Creatinine Ratio 15.0 Glucose 113 H Calcium 9.2 Urine Color Yellow Urine Clarity Sl. Cloudy Urine pH 6.0 Ur Specific Norris 1.020 Urine Protein 30 H Urine Glucose (UA) Normal Urine Ketones Negative Urine Occult Blood 10 H Urine Nitrite Negative Urine Bilirubin Negative Urine Urobilinogen Normal Ur Leukocyte Esterase Negative Urine RBC 0-5 SEEN Urine WBC 0 SEEN Ur Squamous Epith Cells 0-5 SEEN Urine Bacteria 2+ Urine Mucus 0 SEEN Radiography Diagnostic Testing: Clinical Impression(s) from Imaging Studies Abdomen/Pelvis CT 01/03/25 17:15 IMPRESSION: 1. No acute noncontrast findings. No hydronephrosis or ureteral calculus identified. 2. Additional description as above. Reading Location: [id number] Abdomen/Pelvis CTA 01/03/25 19:10 IMPRESSION: Symmetric appearing nephrograms without perinephric stranding. Incidental left renal cyst noted. A couple nonobstructing right intrarenal stones. There is mild asymmetric prominence of the right renal collecting system compared to the left. No peripelvic stranding or evidence of urothelial thickening/enhancement identified. No ureteral or bladder stone seen. Again noted is reimplantation of the right ureter at the right dome of the bladder. Right renal artery appears within limits. An accessory right upper pole renal artery from the aorta is identified. The renal veins appear within limits. One or more dose reduction techniques were used (e.g., Automated exposure control, adjustment of the mA and/or kV according to patient size, use of iterative reconstruction technique). Reading Location: [id number] <Dr. Salinas Mcintyre MD - Last Filed: 01/03/25 20:49> [facility] Lab Data Labs: Laboratory Results - last 24 hr 01/03/25 01/03/25 16:40 18:11 WBC 8.2 RBC 4.14 L Hgb 12.6 Hct 37.6 MCV 90.8 MCH 30.4 MCHC 33.5 RDW Std Deviation 45.1 H RDW Coeff of Dion 13.6 Plt Count 320 MPV 11.9 Immature Gran % (Auto) 0.500 Neut % (Auto) 68.2 Lymph % (Auto) 22.3 [place] % (Auto) 6.5 Eos % (Auto) 1.8 Baso % (Auto) 0.7 Absolute Neuts (auto) 5.6 Absolute Lymphs (auto) 1.83 Nucleated RBC % 0 Sodium 137 Potassium 3.7 Chloride 104 Carbon Dioxide 20.1 L Anion Gap 12 BUN 14 Creatinine 0.95 Estim Creat Clear Calc 69.74 Est GFR (MDRD) Non-Af 72 BUN/Creatinine Ratio 15.0 Glucose 113 H Calcium 9.2 Urine Color Yellow Urine Clarity Sl. Cloudy Urine pH 6.0 Ur Specific [place] 1.020 Urine Protein 30 H Urine Glucose (UA) Normal Urine Ketones Negative Urine Occult Blood 10 H Urine Nitrite Negative Urine Bilirubin Negative Urine Urobilinogen Normal Ur Leukocyte Esterase Negative Urine RBC 0-5 SEEN Urine WBC 0 SEEN Ur Squamous Epith Cells 0-5 SEEN Urine Bacteria 2+ Urine Mucus 0 SEEN Radiography Diagnostic Testing: Clinical Impression(s) from Imaging Studies Abdomen/Pelvis CT 01/03/25 17:15 IMPRESSION: 1. No acute noncontrast findings. No hydronephrosis or ureteral calculus identified. 2. Additional description as above. Reading Location: [id number] Abdomen/Pelvis CTA 01/03/25 19:10 IMPRESSION: Symmetric appearing nephrograms without perinephric stranding. Incidental left renal cyst noted. A couple nonobstructing right intrarenal stones. There is mild asymmetric prominence of the right renal collecting system compared to the left. No peripelvic stranding or evidence of urothelial thickening/enhancement identified. No ureteral or bladder stone seen. Again noted is reimplantation of the right ureter at the right dome of the bladder. Right renal artery appears within limits. An accessory right upper pole renal artery from the aorta is identified. The renal veins appear within limits. One or more dose reduction techniques were used (e.g., Automated exposure control, adjustment of the mA and/or kV according to patient size, use of iterative reconstruction technique). Reading Location: [facility] Narrative: I have personally performed a face to face assessment of the patient and have reviewed the BARRY Note. I performed a substantive portion of the visit including all aspects of the following. My vivar findings include: History is acute onset of right flank pain feels like prior kidney stone yesterday, worse today along with vomiting. Has had to have multiple kidney stones extracted in the past. No urinary symptoms or fever/chills. Exam is in mild acute painful distress, tender throughout the right side of the abdomen without guarding or rebound, and right CVA tenderness. Medical Decison Making labs, symptom control, urinalysis, CT obtained. I reviewed the images and report which I agree with, consistent with no obstructive uropathy or perinephric stranding/signs of infection. Urinalysis also shows no infection. On further examination the patient has no rash and she is not tender superficially to suggest neuropathic pain like early shingles. She states this feels just like her kidney pain that she has had multiple times in the past. Therefore although she has no risk factors for peripheral arterial disease, sent her for CT angiography to evaluate renal perfusion and to rule out an infarct. I reviewed the images and the report which I agree with, it is negative for any of this, and furthermore there is no perinephric stranding, signs of hydroureter, or issues with her reimplanted right ureter which was apparently done because of a stricture related to a stone. I reviewed some of these old records, she sees Dr. Prabhakar, I attempted to contact him but he is signed out and unavailable and there is no one else with the practice available either. I discussed all this with the patient. We discussed other etiologies of her pain, such as muscle strain, early zoster, she is staying now that she is having some worsening when she moves her leg on the right or moves the wrong way, suggesting maybe it could be musculoskeletal. I offered her some pain medication, she states she has some at home and she wants to go home. Her pain is better, we gave her some fentanyl which seemed to help. Given this and the fact that her vital signs are normal, her scans show no emergent medical condition and comfortable with all that having her follow-up Other additions or changes: [None] Discharge Plan Triage Chief Complaint: Flank Pain ED Midlevel Provider: Amanda Gardner ED Provider: Salinas Mcintyre Dx/Rx/DC Orders Clinical Impression: Acute right flank pain Instructions: ED Flank Pain, Uncertain Cause Prescriptions: Continued citalopram 20 mg tablet 20 mg PO DAILY trazodone 100 mg tablet 200 mg PO QHS nitrofurantoin macrocrystal 100 mg capsule 100 mg PO QHS Rx Instructions: must administer with a meal/food ondansetron 4 mg tablet,disintegrating 4 mg PO Q8H PRN (Reason: nausea and vomiting) Qty: 20 0RF medroxyprogesterone 5 mg tablet 5 mg PO DAILY estradiol 1 mg tablet 1 mg PO DAILY metformin 500 mg tablet 500 mg PO DAILY omeprazole 20 mg capsule,delayed release(DR/EC) 20 mg PO DAILY oxycodone 5 mg tablet 5 mg PO Q6H PRN (Reason: pain) 7 Days Qty: 28 0RF docusate sodium 100 mg capsule 100 mg PO BID Qty: 20 0RF enoxaparin [Lovenox] 40 mg/0.4 mL syringe 40 mg subcut DAILY 14 Days Qty: 5.6 0RF Primary Care Provider: Dov Meade Referrals: Dov Meade DO [Primary Care Provider] - 3-5 Days if not improving () Print Language: Upper Sorbian Disposition Disposition: Home, Self Care Discharge Date/Time: 01/03/25 21:02
--- NOTE | 2025-01-03 17:15 | CT_ITS ---
PROCEDURE: ABDOMEN/PELVIS WITHOUT CONT 01/03/2025 REASON FOR EXAM: R FLANK PAIN TECHNIQUE: CT abdomen and pelvis was performed without IV contrast. Coronal and sagittal reformats were generated. PATIENT PREPARATION: Per protocol ORAL CONTRAST TYPE: None. CONTRAST: None. One or more dose reduction techniques were used (e.g., Automated exposure control, adjustment of the mA and/or kV according to patient size, use of iterative reconstruction technique. RADIATION DOSE SUMMARY: CTDlvol: 20.93 mGy DLP: 1024.86 mGycm COMPARISON: 03/15/2022 FINDINGS: Note that evaluation of the abdominopelvic viscera, vasculature, and remaining soft tissues is limited in the absence of IV contrast. Lung bases: Mild atelectasis/scarring. Similar RIGHT lower lobe cyst. Liver: Similar small LEFT lobe cyst. Spleen: Unremarkable. Gallbladder: Unremarkable. Pancreas: Unremarkable. Adrenals: Unremarkable. Kidneys: Redemonstrated nonobstructing intrarenal calculi bilaterally, up to 3 mm on the RIGHT. Operative changes of RIGHT ureteral reimplantation on the anterior RIGHT bladder dome. No hydronephrosis or ureteral calculus identified. Similar exophytic LEFT renal cyst. Bowel: Unremarkable. Normal caliber appendix. Lymph nodes: Unremarkable. Vasculature: Mild calcific atherosclerosis. Peritoneum: Unremarkable. Bladder: As above. Otherwise underdistended and suboptimally evaluated, grossly unremarkable. Reproductive Organs: Unremarkable. Body Wall: Tiny fat containing umbilical hernia.. Bones: Unremarkable. CT/Abdomen/Pelvis without Cont IMPRESSION: 1. No acute noncontrast findings. No hydronephrosis or ureteral calculus ident ified. 2. Additional description as above. Reading Location: [id number]
[2025-01-03 17:16] VITALS: BP 121/54; PULSE 71; RESP 14; TEMP 36.6; O2SAT 98
[2025-01-03] MEDS: HYDROmorphone 1 MG/ML Syringe IV (17:22)
[2025-01-03] MEDS: 0.9% Normal Saline (1000mL) 1,000 ML 999 ML IV (17:22)
[2025-01-03 17:26] LABS: Anion Gap 12 (5-15); BUN 14 mg/dL (4-19); Calcium,Total 9.2 mg/dL (7.6-11.0); Carbon Dioxide 20.1 mmol/L (21.0-32.0); Chloride 104 mmol/L (98-108); Creatinine, Serum 0.95 mg/dL (0.70-1.20); EST Glomerular Filtration Rate 72 (>60); Estimated Creatinine Clearance 69.74 ml/min (50-250); Glucose 113 mg/dL (70-99); Potassium 3.7 mmol/L (3.3-5.1); Sodium Level 137 mmol/L (133-145)
[2025-01-03 18:20] VITALS: BP 121/54; PULSE 74; RESP 18; TEMP 37.2; O2SAT 99
[2025-01-03 18:21] LABS: Mucous, Urine 0 SEEN /hpf (<or=2+); White Blood Cells 0 SEEN /hpf (0-5)
[2025-01-03 18:37] LABS: Color, Urine Yellow (Yellow); Glucose, Dipstick Normal (Normal); Ketone-Dipstick Negative (Negative); Leukocyte Esterase-Dipstick Negative /ul (Negative); Nitrite-Dipstick Negative (Negative); Occult Blood-Urine 10 /ul (Negative); Protein-Dipstick 30 mg/dl (Negative); Urine Bilirubin Dipstick Negative (Negative); Urine Clarity Sl. Cloudy (Clear); Urine Urobilinogen Normal (Normal)
[2025-01-03 18:51] LABS: Bacteria 2+ /hpf (None Seen); Squamous Epithelial Cells - UA 0-5 SEEN /hpf (5-10)
[2025-01-03 18:52] LABS: Red Blood Cells-Urine 0-5 SEEN /hpf (0-5)
[2025-01-03] MEDS: fentaNYL 100 MCG/2 ML Ampul 50 MCG IV (18:52)
--- NOTE | 2025-01-03 19:10 | CT_ITS ---
PROCEDURE: CTA ABD/PELVIS W/WO CONTRAST REASON FOR EXAM: R FLANK PAIN, ATTENTION R KIDNEY TECHNIQUE: CTA of the abdomen and pelvis with contrast with coronal and sagittal reformatted images IV CONTRAST: 100 cc Isovue 370 COMPARISON: None. FINDINGS: Dependent basilar atelectasis. The liver, gallbladder, adrenal glands, pancreas and spleen appear within limits. Symmetric appearing nephrograms without perinephric stranding. Incidental left renal cyst noted. A couple nonobstructing right intrarenal stones. There is mild asymmetric prominence of the right renal collecting system compared to the left. No peripelvic stranding or evidence of urothelial thickening/enhancement identified. No ureteral or bladder stone seen. Again noted is reimplantation of the right ureter at the right dome of the bladder. The bladder appears within limits. Abdominal aorta appears within limits without aneurysm or dissection. The celiac, SMA and MOIZ fill with contrast as expected. Left renal artery appears within limits. Right renal artery appears within limits. An accessory right upper pole renal artery from the aorta is identified. The renal veins appear within limits. No adenopathy identified. No bowel dilation or free air. Normal caliber appendix without secondary signs. The uterus/adnexa appear within limits. No free fluid seen. Visualized osseous structures appear within limits. CT/CTA Abd/Pelvis W/WO Contrast IMPRESSION: Symmetric appearing nephrograms without perinephric stranding. Incidental left renal cyst noted. A couple nonobstructing right intrarenal stones. There is mild asymmetric prominence of the right renal colle cting system compared to the left. No peripelvic stranding or evidence of urothelial thickening/enhancement identified. No urete ral or bladder stone seen. Again noted is reimplantation of the right ureter at the right dome of the bladder. Right renal artery appears within limits. An accessory right upper pole renal a rtery from the aorta is identified. The renal veins appear within limits. One or more dose reduction techniques were used (e.g., Automated exposure contr ol, adjustment of the mA and/or kV according to patient size, use of iterative reconstruction technique). Reading Location: [id number]
[2025-01-03 20:00] VITALS: BP 129/71; PULSE 75; RESP 17; TEMP 36.9; O2SAT 98
[2025-01-03 20:57] VITALS: BP 114/72; PULSE 70; RESP 18; TEMP 36.9; O2SAT 97
== END 2025-01-03 21:02 | disposition home or self-care (01) ==
PROVIDERS: Physician Assistant; Emergency Provider Emergency Medicine; Visit Provider Emergency Medicine
DX: R10.9 Unspecified abdominal pain (principal)
CPT/HCPCS: 74174; 74176; 80048; 81001; 85025; 96361; 96374; 96375; 96376; 99283; Q9967; A4216; J2405

== ENCOUNTER 2025-08-10 07:07 | Day surgery (SDC) | payer MEDICAID, SELFPAY ==
[2025-08-10] VITALS (8 sets, daily range): BP systolic 101–143; BP diastolic 58–88; PULSE 86–96; RESP 16; TEMP 36.5–36.8; O2SAT 92–100; BMI 33.9
--- OUTSIDE RECORDS SUMMARY | 2025-08-10 07:11 | XMS RPT_ITS | CCD ---
Author Organization [facility] Care Team Providers Care Electron Beam Machine Welder Setter Name Role Phone DESHAUN HINSON, DOV E Primary Care Physician UCHE RUBIN Referring Unavailable UCHE RUBIN Attending Unavailable UCHE RUBIN Admitting Unavailable MERLE BOWMAN-NINA CARLIN Consulting Unavaila ble MEADE DO, DOV E Primary Care Unavailable MEADE DO, DOV E Attending Unavailable MEADE DO, DOV E Primary Care Unavailable CHANEL YOUSIF Attending Unavailable MEADE DO, DOV E Primary Care Unavailable BINH MAK PA-C Attending Unavailable MEADE DO, DOV E Primary Care Unavailable MEADE DO, DOV E Primary Care Unavailable MEADE DO, DOV E Attending Unavailable ASHLEE DPM, DR HODGES Attending Unavailabl e MEADE DO, DOV E Primary Care Unavailable UCHE RUBIN Attending Unavailable MEADE DO, DOV E Primary Care Unavailable MEADE DO, DOV E Primary Care Unavailable MEADE DO, DOV E Attending Unavailable ASHLEE DPM, DR HODGES Attending Unavailabl e MEADE DO, DOV E Primary Care Unavailable CHANEL YOUSIF Attending Unavailable MEADE DO, DOV E Primary Care Unavailable UCHE RUBIN Attending Unavailable MEADE DO, DOV E Primary Care Unavailable KENRICK COTE DO Attending Unavailable MEADE DO, DOV E Primary Care Unavailable MEADE DO, DOV E Attending Unavailable MEADE DO, DOV E Primary Care Unavailable Deshaun HINSON, Dr. Monae Primary Care Provider [phone] Osmar HERNANDEZ, Dr. Villafuerte Attending Provider Osmar HERNANDEZ, Dr. Villafuerte Referring Provider Dr. Salinas Mcintyre MD Emergency Provider CANDELARIA OLIVEIRA, DR NEIL Consulting Unavailable AILYN OLIVEIRA, ANS Attending Unavailable MEADE DO, DOV E Primary Care Unavailable HARLEY OLIVEIRA, DR PEG Bishop Admitting Unavailable ROBERT OLIVEIRA, [facility] Consulting Unavailable Deshaun HINSON, Dr. Monae Primary Care Physician [phone] Dr. Dov Meade DO Referring Provider [phone] Rossi Bajwa Attending Physician Leanne BOWMAN-CREATIVE WRITING TEACHER, Lizy Unavailable [phone] Natalie OLIVEIRA, Evelio Smith Unavailable Meade DO, Dov E Unavailable MEADE DO, DOV E Attending Unavailable MEADE DO, DOV E Primary Care Unavailable MEADE DO, DOV E Attending Unavailable MEADE DO, DOV E Primary Care Unavailable MEADE DO, DOV E Primary Care Unavailable NINA CLEARY DO Attending Unavailable MEADE DO, DOV E Attending Unavailable MEADE DO, DOV E Primary Care Unavailable MEADE DO, DOV E Attending Unavailable MEADE DO, DOV E Primary Care Unavailable MEADE DO, DOV E Primary Care Unavailable ROSSI PICKARD Attending Unava ilable CHLOE PIZANO DO Attending Unavailable MEADE DO, DOV E Primary Care Unavailable MEADE DO, DOV E Primary Care Unavailable ROSSI PICKARD Attending Unava ilable MEADE DO, DOV E Primary Care Unavailable MEADE DO, DOV E Attending Unavailable MEADE DO, DOV E Primary Care Unavailable MEADE DO, DOV E Attending Unavailable MEADE DO, DOV E Primary Care Unavailable CHANEL YOUSIF MD Attending Unavailable MEADE DO, DOV E Primary Care Unavailable FABIOLA ORDAZ PA-C Attending Unavailab le MEADE DO, DOV E Primary Care Unavailable MEADE DO, DOV E Attending Unavailable Meade, Dov Primary Care Unavailable Christo Prasad Attending Unavailable Christo Prasad Referring Unavailable Meade, Dov Primary Care Unavailable Salinas Mcintyre Attending Unavailable Meade Dov Referring Unavailable Daniel Mckee Attending Unavailable Meade, Dov Primary Care Unavailable Meade, Dov Primary Care Unavailable Meade, Dov Referring Unavailable Rossi Abdi Attending Unavailable Allergies Allergy Classification Reported Allergen(s) Allergy Type Date of Onset Reaction(s) Facility (8 sources) Meperidine; Translations: [meperidine HCl] Drug Allergy 03-15-2022 Other [facility] (20 sources) Morphine; Translations: [morphine] Drug Allergy 03-15-2022 Rash [facility] (5 sources) oxyCODONE Drug Allergy 03-15-2022 Nausea [facility] Work Phone: (20 sources) Meperidine; Translations: [meperidine] Drug Allergy [facility] (1 source) Meperidine Drug Allergy 12-21-2024 [facility] (1 source) Morphine Drug Allergy 05-31-2024 [facility] (1 source) Morphine Drug Allergy 08-08-2025 [facility] Repository Medications Current Medications Medication Drug Class(es) Dates Sig (Normalized) Sig (Original) acetaminophen 325 mg / HYDROcodone bitartrate 5 mg oral tablet (4 sources) Opioid Agonist Start: 07-07-2025 End: 07-11-2025 take 1 tablet by mouth once daily at bedtime Brewer 325- 5 mg oral tablet Dose = 1 tab(s), Oral, qHS, X 4 day(s), # 4 tab(s), 0 Refill(s), Pharmacy: [facility]/pharmacy #[id number], Pain in joint involving right pelvic region and thigh Degenerative disc disease, cervical, 163.5, cm, 07/07/25 9:38:00 EDT, Height, 88.5, kg, 07/07/25 9:38:00 EDT, Dosing Weight Start Date: 07/07/25 Stop Date: 07/11/25 Status: Ordered Medication Dispense Status: Completed Quantity: 4.0 Unit: tab(s) Total Allowed Fills: 1 Fills Dispensed: 0 Indications: Pain in right hip; Other cervical disc degeneration, unspecified cervical region; Start: 04-15-2025 End: 04-18-2025 take 1 tablet by mouth every six hours as needed for pain Brewer 325- 5 mg oral tablet Dose = 1 tab(s), Oral, q6h, PRN for pain, X 3 day(s), # 12 tab(s), 0 Refill(s), Abdominal pain, 86.2 Start Date: 04/15/25 Stop Date: 04/18/25 Status: Ordered Quantity: 12.0 Unit: tab(s) Repeat number: 1 Indications: Unspecified abdominal pain; Start: 02-24-2024 End: 03-02-2024 take 1 tablet by mouth every six hours as needed for pain Brewer 325- 5 mg oral tablet Dose = 1 tab(s), Oral, q6h, PRN for pain, X 7 day(s), # 28 tab(s), 0 Refill(s), Pharmacy: [facility] #[id number], Cervical spondylosis, 162.5, cm, 02/24/24 8:21:00 EDT, Height, 89.1, kg, 02/24/24 8:21:00 EDT, Dosing Weight Start Date: 02/24/24 Stop Date: 03/02/24 Status: Ordered buPROPion hydrochloride 75 mg oral tablet (9 sources) Aminoketone Start: 02-10-2025 buPROPion 75 m g oral tablet Dose : 75 mg = 1 tab(s), Oral, Daily, # 90 tab(s), 0 Refill(s), [id number], 162.6, cm, 02/10/25 15:17:00 EDT, Height, kg, 02/10/25 15:17:00 EDT, Dosing Weight Start Date: 02/10/25 Status: Ordered Quantity: 90.0 Unit: tab(s) Repeat number: 1 Start: 10-17-2024 buPROPion 75 m g oral tablet Dose : 75 mg = 1 tab(s), Oral, Daily, # 90 tab(s), 0 Refill(s), Pharmacy: [facility]/pharmacy #[id number], 162.6, cm, 10/17/24 13:07:00 EST, Height, kg, 10/17/24 13:07:00 EST, Dosing Weight Start Date: 10/17/24 Status: Ordered Quantity: 90.0 Unit: tab(s) Repeat number: 1 Start: 06-29-2024 buPROPion 75 m g oral tablet Dose : 75 mg = 1 tab(s), Oral, Daily, # 30 tab(s), 1 Refill(s), Pharmacy: [facility]/pharmacy #[id number], 162.5, cm, 02/24/24 13:59:00 EDT, Height, kg, 06/29/24 13:37:00 EDT, Dosing Weight Start Date: 06/29/24 Status: Ordered Start: 03-01-2024 take 1 tablet by jackie th every hour, then take 1 tablet by mouth twice daily Wellbutrin SR 100 mg/12 hours oral tablet, extended release Dose : 100 mg = 1 tab(s), Oral, BID, # 60 tab(s), 0 Refill(s), [id number], 162.5, cm, 02/24/24 13:59:00 EDT, Height, kg, 02/24/24 13:59:00 EDT, Dosing Weight Start Date: 03/01/24 Status: Ordered dicyclomine hydrochloride 10 mg oral capsule (14 sources) Anticholinergic Start: 07-03-2025 take 1 capsule by mouth four times daily dicyclomine 10 mg oral capsule TAKE 1 CAPSULE BY MOUTH 4 TIMES A DAY FOR 7 DAYS Start Date: 07/03/25 Status: Ordered Medication Dispense Status: Completed Total Allowed Fills: 1 Fills Dispensed: 0 Start: 04-15-2025 End: 04-22-2025 dicyclomine 10 mg oral capsu le Dose : 10 mg = 1 cap(s), Oral, QID, # 28 cap(s), 0 Refill(s) Start Date: 04/15/25 Stop Date: 04/22/25 Status: Ordered Quantity: 28.0 Unit: cap(s) Repeat number: 1 Start: 01-06-2025 End: 02-05-2025 dicyclomine 10 mg oral capsu le Dose : 10 mg = 1 cap(s), Oral, QID, 28 EA, 0 Refill(s), TAKE 1 CAPSULE BY MOUTH 4 TIMES A DAY FOR 7, # 120 cap(s), 0 Refill(s), Pharmacy: [facility]/pharmacy #[id number], 162.6, cm, 01/06/25 9:09:00 EDT, Height, kg, 01/06/25 9:09:00 EDT, Dosing Weight Start Date: 01/06/25 Stop Date: 02/05/25 Status: Ordered Quantity: 120.0 Unit: cap(s) Repeat number: 1 Start: 10-17-2024 End: 10-24-2024 dicyclomine 10 mg oral capsu le Dose : 10 mg = 1 cap(s), Oral, QID, # 28 cap(s), 0 Refill(s), [id number], IBS (irritable bowel syndrome), 162.6, cm, 10/17/24 13:07:00 EST, Height, kg, 10/17/24 13:07:00 EST, Dosing Weight Start Date: 10/17/24 Stop Date: 10/24/24 Status: Ordered Quantity: 28.0 Unit: cap(s) Repeat number: 1 Indication: Irritable bowel syndrome, unspecified DULoxetine 60 mg delayed release oral capsule (11 sources) Serotonin and Norepinephrine Reuptake Inhibitor Start: 07-10-2025 DULoxetine 60 mg ora l delayed release capsule Dose : 60 mg = 1 cap(s), Oral, qDay, # 90 cap(s), 0 Refill(s), [id number], 163.5, cm, 07/07/25 9:38:00 EDT, Height, kg, 07/07/25 9:38:00 EDT, Dosing Weight Start Date: 07/10/25 Status: Ordered Medication Dispense Status: Completed Quantity: 90.0 Unit: cap(s) Total Allowed Fills: 1 Fills Dispensed: 0 Start: 06-02-2025 DULoxetine 60 mg oral delayed release capsule Dose : 60 mg = 1 cap(s), Oral, qDay, IN LIEU OF PCP, # 90 cap(s), 0 Refill(s), [id number], 163.5, cm, 05/17/25 9:34:00 EDT, Height, kg, 05/17/25 9:34:00 EDT, Dosing Weight Start Date: 06/02/25 Status: Ordered Medication Dispense Status: Completed Quantity: 90.0 Unit: cap(s) Total Allowed Fills: 1 Fills Dispensed: 0 Start: 04-26-2025 DULoxetine 30 mg oral delayed release capsule Dose : 30 mg = 1 cap(s), Oral, qDay, # 30 cap(s), 1 Refill(s), [id number], 162.6, cm, 04/17/25 9:43:00 EDT, Height, kg, 04/17/25 9:43:00 EDT, Dosing Weight Start Date: 04/26/25 Status: Ordered Medication Dispense Status: Completed Quantity: 30.0 Unit: cap(s) Total Allowed Fills: 2 Fills Dispensed: 0 Start: 03-21-2025 DULoxetine 30 mg oral delayed release capsule Dose : 30 mg = 1 cap(s), Oral, qDay, # 30 cap(s), 1 Refill(s), Pharmacy: [facility]/pharmacy #[id number], 162.6, cm, 03/21/25 15:26:00 EDT, Height, kg, 03/21/25 15:26:00 EDT, Dosing Weight Start Date: 03/21/25 Status: Ordered Quantity: 30.0 Unit: cap(s) Repeat number: 2 escitalopram 20 mg oral tablet (1 source) Serotonin Reuptake Inhibitor take 2 tablets by mouth once daily Lexapro 20 mg tablet 2 tablet by mouth once a day active Amna Hankins AT [facility] esomeprazole 20 mg delayed release oral capsule (10 sources) Proton Pump Inhibitor Start: esomeprazole 20 mg oral delayed release capsule Dose : 20 mg = 1 cap(s), Oral, qDayAC, # 90 cap(s), 3 Refill(s), Pharmacy: [facility] #[id number], GERD (gastroesophageal reflux disease) Long-term current use of proton pump inhibitor therapy, 162.5, cm, 02/16/24 11:34:00 EDT, Height, kg, 02/16/24 11:34:00 EDT, Dosing Weight Start Date: 02/16/24 Status: Ordered Start: 08-28-2023 esomeprazole 2 0 mg oral delayed release capsule Dose : 20 mg = 1 cap(s), Oral, qDayAC, # 90 cap(s), 1 Refill(s), Pharmacy: [facility] #[id number], GERD (gastroesophageal reflux disease) Long-term current use of proton pump inhibitor therapy, 166, cm, 08/28/23 9:03:00 EST, Height, kg, 08/28/23 9:03:00 EST, Dosing Weight Start Date: 08/28/23 Status: Ordered Start: 08-28-2023 NexIUM Oral, q Day, 0 Refill(s) Start Date: 08/28/23 Status: Ordered estradiol 1 mg oral tablet (20 sources) Estrogen Start: 12-07-2023 End: 09-02-2024 estradiol 2 mg oral tablet Dose : 2 mg = 1 tab(s), Oral, qDay, # 90 tab(s), 2 Refill(s), [facility]acy: [facility] #[id number], 166, cm, 12/07/23 11:44:00 EST, Height, kg, 12/07/23 11:44:00 EST, Dosing Weight Start Date: 12/07/23 Stop Date: 09/02/24 Status: Ordered Start: 10-27-2023 estradiol 1 mg oral tablet Dose : 2 mg = 2 tab(s), Oral, qDay, # 360 tab(s), 3 Refill(s), [id number], 162.6, cm, 01/06/25 9:09:00 EDT, Height, kg, 01/06/25 9:09:00 EDT, Dosing Weight Start Date: 01/10/25 Status: Ordered Medication Dispense Status: Completed Quantity: 360.0 Unit: tab(s) Total Allowed Fills: 4 Fills Dispensed: 0 estradol (2 sources) Start: 06-11-2022 estradol estra dol, 0 Refill(s), 73.3 Start Date: 06/11/22 Status: Ordered gabapentin 100 mg oral capsule (5 sources) Anti-epileptic Agent Start: 04-19-2025 End: 05-03-2025 Neurontin 100 mg oral capsule Dose : 100 mg = 1 cap(s), Oral, TID, # 42 cap(s), 0 Refill(s), [id number], Shingles, 162.6, cm, 04/17/25 9:43:00 EDT, Height, 86, kg, 04/17/25 9:43:00 EDT, Dosing Weight Start Date: 04/19/25 Stop Date: 05/03/25 Status: Ordered Quantity: 42.0 Unit: cap(s) Repeat number: 1 Indications: Zoster without complications; Start: 02-10-2025 gabapentin 600 mg oral tablet 0 Refill(s), 88.9 Start Date: 02/10/25 Status: Ordered Repeat number: 1 ibuprofen 200 mg oral tablet (6 sources) Nonsteroidal Anti-inflammatory Drug Start: 07-12-2020 ibuprofen 200 mg oral tablet Dose : 400 mg = 2 tab(s), Oral, q6hr, PRN pain or fever, 0 Refill(s) Start Date: 07/12/20 Status: Ordered linaclotide 0.29 mg oral capsule (1 source) Guanylate Cyclase-C Agonist Start: 05-17-2025 Linzess 290 mcg oral capsule Dose : 290 mcg = 1 cap(s), Oral, qDay, # 30 cap(s), 0 Refill(s), Pharmacy: [facility]/pharmacy #[id number], IBS (irritable bowel syndrome), 163.5, cm, 05/17/25 9:34:00 EDT, Height, kg, 05/17/25 9:34:00 EDT, Dosing Weight Start Date: 05/17/25 Status: Ordered Medication Dispense Status: Completed Quantity: 30.0 Unit: cap(s) Total Allowed Fills: 1 Fills Dispensed: 0 Indications: Irritable bowel syndrome, unspecified; medroxyPROGESTERone acetate 5 mg oral tablet (20 sources) Progestin Start: 10-14-2023 medroxyPROGESTERone 5 mg oral tablet Dose : 5 mg = 1 tab(s), Oral, Daily, # 90 tab(s), 1 Refill(s), Pharmacy: [facility]/pharmacy #[id number], 162.5, cm, 02/24/24 13:59:00 EDT, Height, kg, 02/24/24 13:59:00 EDT, Dosing Weight Start Date: 06/13/24 Status: Ordered Medication Dispense Status: Completed Quantity: 90.0 Unit: tab(s) Total Allowed Fills: 2 Fills Dispensed: 0 meloxicam 7.5 mg oral tablet (3 sources) Nonsteroidal Anti-inflammatory Drug Start: 10-02-2023 Mobic 7.5 mg oral tablet Dose : 7.5 mg = 1 tab(s), Oral, qDay, Take with food/milk, # 30 tab(s), 0 Refill(s), Pharmacy: [facility] #[id number], Plantar fasciitis, 166, cm, 10/02/23 13:59:00 EST, Height, kg, 10/02/23 13:59:00 EST, Dosing Weight Start Date: 10/02/23 Status: Ordered metFORMIN hydrochloride 500 mg oral tablet (11 sources) Biguanide Start: 12-09-2024 metFORMIN 1000 mg oral tablet (IR) Dose : 1,000 mg = 1 tab(s), Oral, BID, # 60 tab(s), 1 Refill(s), [id number], 162.6, cm, 12/09/24 10:39:00 EST, Height, kg, 12/09/24 10:39:00 EST, Dosing Weight Start Date: 12/09/24 Status: Ordered Quantity: 60.0 Unit: tab(s) Repeat number: 2 Start: 10-17-2024 End: 07-06-2025 MetFORMIN (Eqv-Glucophage XR ) 500 mg oral tablet, EXTENDED RELEASE Dose : 500 mg = 1 tab(s), Oral, BID, Non-osmotic formulation please, # 60 tab(s), 1 Refill(s), [id number], 162.6, cm, 01/06/25 9:09:00 EDT, Height, kg, 01/06/25 9:09:00 EDT, Dosing Weight Start Date: 01/06/25 Status: Ordered Medication Dispense Status: Completed Quantity: 60.0 Unit: tab(s) Total Allowed Fills: 2 Fills Dispensed: 0 metformin ER 500 mg tablet,extended release 24 hr active Ester Ferris MA [facility] naltrexone hydrochloride 50 mg oral tablet (17 sources) Opioid Antagonist Start: 01-06-2025 take 0.5 tablet by mouth once daily naltrexone 50 mg oral tablet See Instructions, 0.5 Tablets Oral Daily NOT TO TAKE SAME DAY NORCO, # 45 tab(s), 0 Refill(s), Pharmacy: [facility]/pharmacy #[id number], 162.6, cm, 01/06/25 9:09:00 EDT, Height, kg, 01/06/25 9:09:00 EDT, Dosing Weight Start Date: 01/06/25 Status: Ordered Medication Dispense Status: Completed Quantity: 45.0 Unit: tab(s) Total Allowed Fills: 1 Fills Dispensed: 0 Start: 10-17-2024 take 0.5 tablet by m outh once daily naltrexone 50 mg oral tablet See Instructions, 0.5 Tablets Oral Daily NOT TO TAKE SAME DAY NORCO, # 30 tab(s), 0 Refill(s), Pharmacy: [facility]/pharmacy #[id number], 162.6, cm, 10/17/24 13:07:00 EST, Height, kg, 10/17/24 13:07:00 EST, Dosing Weight Start Date: 10/17/24 Status: Ordered Quantity: 30.0 Unit: tab(s) Repeat number: 1 Start: 06-29-2024 take 0.5 tablet by m outh once daily naltrexone 50 mg oral tablet See Instructions, 0.5 Tablets Oral Daily NOT TO TAKE SAME DAY NORCO, # 30 tab(s), 0 Refill(s), Pharmacy: [facility]/pharmacy #[id number], 162.5, cm, 02/24/24 13:59:00 EDT, Height, kg, 06/29/24 13:37:00 EDT, Dosing Weight Start Date: 06/29/24 Status: Ordered Start: 03-01-2024 take 0.5 tablet by m outh once daily naltrexone 50 mg oral tablet See Instructions, 0.5 Tablets Oral Daily NOT TO TAKE SAME DAY NORCO, # 30 tab(s), 0 Refill(s), [id number], 162.5, cm, 02/24/24 13:59:00 EDT, Height, kg, 02/24/24 13:59:00 EDT, Dosing Weight Start Date: 03/01/24 Status: Ordered naltrexone 50 mg tablet active Ester Ferris MA [facility] nitrofurantoin, macrocrystals 100 mg oral capsule (20 sources) Nitrofuran Antibacterial Start: 07-21-2023 take 1 capsule by mouth once daily at bedtime nitrofurantoin macrocrystals 100 mg oral capsule TAKE 1 CAPSULE BY MOUTH EVERY DAY AT BEDTIME WITH FOOD Start Date: 07/21/23 Status: Ordered Medication Dispense Status: Completed Total Allowed Fills: 1 Fills Dispensed: 0 Start: 11-02-2021 End: 06-16-2022 take 1 capsule by mouth once daily at bedtime nitrofurantoin macrocrystals 100 mg oral capsule TAKE 1 CAPSULE BY MOUTH EVERY DAY AT BEDTIME WITH FOOD Start Date: 07/21/23 Status: Ordered Medication Dispense Status: Completed Total Allowed Fills: 1 Fills Dispensed: 0 nortriptyline 10 mg oral capsule (1 source) Tricyclic Antidepressant Start: 06-12-2025 nortriptyline 10 mg oral capsule Dose : 10 mg = 1 cap(s), Oral, qHS, After 5 days if ineffective, may increase to 2 tabs nightly + call office to notify, # 30 cap(s), 1 Refill(s), [id number], 163.5, cm, 05/17/25 9:34:00 EDT, Height, kg, 05/17/25 9:34:00 EDT, Dosing Weight Start Date: 06/12/25 Status: Ordered Medication Dispense Status: Completed Quantity: 30.0 Unit: cap(s) Total Allowed Fills: 2 Fills Dispensed: 0 omeprazole 20 mg delayed release oral capsule (17 sources) Proton Pump Inhibitor Start: 06-29-2024 omeprazole 20 mg oral delayed release capsule Dose : 40 mg = 2 cap(s), Oral, qDay, # 90 cap(s), 0 Refill(s), [id number], GERD (gastroesophageal reflux disease), 163.5, cm, 07/07/25 9:38:00 EDT, Height, kg, 07/07/25 9:38:00 EDT, Dosing Weight Start Date: 07/10/25 Status: Ordered Medication Dispense Status: Completed Quantity: 90.0 Unit: cap(s) Total Allowed Fills: 1 Fills Dispensed: 0 Indications: Gastro-esophageal reflux disease without esophagitis; ondansetron 4 mg disintegrating oral tablet (6 sources) Serotonin-3 Receptor Antagonist Start: 10-28-2024 End: 04-22-2025 ondansetron 4 mg oral tablet, disintegrating Dose : 4 mg = 1 tab(s), Oral, q6h, PRN Nausea/Vomiting, # 20 tab(s), 0 Refill(s), 04/22/25 6:29:00 PM EDT Start Date: 04/15/25 Stop Date: 04/22/25 Status: Ordered Quantity: 20.0 Unit: tab(s) Repeat number: 1 potassium citrate 15 meq extended release oral tablet (4 sources) Start: 08-28-2023 take 1 tablet by mouth twice daily potassium citrate 15 mEq oral tablet, extended release TAKE 1 TABLET BY MOUTH TWICE A DAY Start Date: 08/28/23 Status: Ordered predniSONE 10 mg oral tablet (10 sources) Start: 07-27-2025 End: 08-12-2025 take 4 tablets by mouth once daily, then take 3 tablets by mouth once daily, then take 2 tablets by mouth once daily, then take 1 tablet by mouth once daily, then take 0.5 tablet by mouth once daily prednisone 10mg tab (TAPER) Taper 36-41-28-10-5 mg, Oral, Daily, Take 4 tabs daily x 5days, then 3 tabs daily x 3days, then 2 tabs daily x 3days,then 1 tab daily x 3days,then 1/2 tab daily x 4 days, # 40 tab(s), 0 Refill(s), Pharmacy: [facility]/pharmacy #[id number], Contact dermatitis, 163.5, cm, 07/07/25 9:38:00 EDT, Height, kg, 07/27/25 11:04:00 EDT, Dosing Weight Start Date: 07/27/25 Stop Date: 08/12/25 Status: Ordered Medication Dispense Status: Completed Quantity: 40.0 Unit: tab(s) Total Allowed Fills: 1 Fills Dispensed: 0 Indications: Unspecified contact dermatitis, unspecified cause; Start: 07-07-2025 End: 07-18-2025 take 4 tablets by mouth once daily, then take 3 tablets by mouth once daily, then take 2 tablets by mouth once daily, then take 1 tablet by mouth once daily, then take 0.5 tablet by mouth once daily prednisone 10mg tab (TAPER) Taper 02-54-42-10-5 mg, Oral, Daily, Take 4 tabs daily x 2days, then 3 tabs daily x 2days, then 2 tabs daily x 2days,then 1 tab daily x 1days,then 1/2 tab daily x 2 days, # 20 tab(s), 0 Refill(s), Pharmacy: [facility]/pharmacy #[id number], Pain in joint involving right pelvic region and thigh Degenerative disc disease, cervical, 163.5, cm, 07/07/25 9:38:00 EDT, Height, kg, 07/07/25 9:38:00 EDT, Dosing Weight Start Date: 07/10/25 Stop Date: 07/18/25 Status: Ordered Medication Dispense Status: Completed Quantity: 20.0 Unit: tab(s) Total Allowed Fills: 1 Fills Dispensed: 0 Indications: Other cervical disc degeneration, unspecified cervical region; Pain in right hip; Start: 01-06-2025 End: 01-20-2025 take 6 tablets by mouth once daily, then take 4 tablets by mouth once daily, then take 2 tablets by mouth once daily, then take 1 tablet by mouth once daily, then take 0.5 tablet by mouth once daily prednisone 10mg tab (TAPER) Taper 98-32-31-10-5 mg, Oral, Daily, Take 6 tabs daily x 3days, then 4 tabs daily x 3days, then 2 tabs daily x 3days,then 1 tab daily x 3days,then 1/2 tab daily x 2 days, # 40 tab(s), 0 Refill(s), Pharmacy: [facility]/pharmacy #[id number], SI (sacroiliac) pain, 162.6, cm, 01/06/25 9:09:00 EDT, Height, kg, 01/06/25 9:09:00 EDT, Dosing Weight Start Date: 01/06/25 Stop Date: 01/20/25 Status: Ordered Quantity: 40.0 Unit: tab(s) Repeat number: 1 Indications: Sacrococcygeal disorders, not elsewhere classified; Probiotic (20 sources) Start: 08-28-2023 take 1 capsule by mo uth once daily Probiotic 1 capsule, Oral, Daily, 0 Refill(s) Start Date: 08/28/23 Status: Ordered Medication Dispense Status: Completed Total Allowed Fills: 1 Fills Dispensed: 0 Start: 08-28-2023 take 1 capsule by mo uth once daily Probiotic 1 capsule, Oral, Daily, 0 Refill(s) Start Date: 08/28/23 Status: Ordered Repeat number: 1 Start: 08-28-2023 take 1 capsule by mo uth once daily Probiotic 1 capsule, Oral, Daily, 0 Refill(s) Start Date: 08/28/23 Status: Ordered Start: 08-28-2023 Probiotic 0 Re fill(s) Start Date: 08/28/23 Status: Ordered Progesterone (2 sources) Progesterone Start: 06-11-2022 progesterone progesterone, 0 Refill(s), 73.3 Start Date: 06/11/22 Status: Ordered 72 hr scopolamine 0.0139 mg/hr transdermal system (8 sources) Anticholinergic Start: 08-14-2024 scopolamine 1 mg/72 hr transdermal film, extended release Apply 1 patch(es), Topical, q72h, PRN as needed for motion sickness, # 4 EA, 0 Refill(s), Pharmacy: [facility]/pharmacy #[id number], 162.5, cm, 02/24/24 13:59:00 EDT, Height, 87.397, kg, 06/29/24 13:37:00 EDT, Dosing Weight Start Date: 08/14/24 Status: Ordered Quantity: 4.0 Unit: EA Repeat number: 1 Sod Sulf-Pot Chloride-Mag Sulf (1 source) Start: 07-06-2025 Testosterone (Eqv-AndroGel Packets) 20.25 mg/packet (1.62%) transdermal gel (4 sources) Start: 01-02-2025 Testosterone (Eqv-AndroGel Packets) 20.25 mg/packet (1.62%) transdermal gel 1 packet(s), Transdermal, qAM, apply to skin, # 30 packet(s), 1 Refill(s), Pharmacy: [facility]/pharmacy #[id number], Hypoactive sexual desire disorder, 162.6, cm, 01/02/25 13:18:00 EDT, Height, 88, kg, 01/02/25 13:18:00 EDT, Dosing Weight Start Date: 01/02/25 Status: Ordered Quantity: 30.0 Unit: packet(s) Repeat number: 2 Indications: Hypoactive sexual desire disorder; traMADol hydrochloride 50 mg oral tablet (4 sources) Opioid Agonist Start: 03-15-2022 take 50 mg by mouth every four hours as needed Tramadol Active 50 MG PO EVERY 4 HOURS NEEDED 05 01March 15, 2022 12:00am traZODone hydrochloride 100 mg oral tablet (20 sources) Serotonin Reuptake Inhibitor Start: 07-10-2025 traZODone 100 mg oral tablet Dose : 200 mg = 2 tab(s), Oral, qHS, # 180 tab(s), 0 Refill(s), Pharmacy: [facility]/pharmacy #[id number], 163.5, cm, 07/07/25 9:38:00 EDT, Height, kg, 07/07/25 9:38:00 EDT, Dosing Weight Start Date: 07/10/25 Status: Ordered Medication Dispense Status: Completed Quantity: 180.0 Unit: tab(s) Total Allowed Fills: 1 Fills Dispensed: 0 Start: 05-13-2025 traZODone 100 mg oral tablet Dose : 200 mg = 2 tab(s), Oral, qHS, # 180 tab(s), 0 Refill(s), [id number], 162.6, cm, 04/17/25 9:43:00 EDT, Height, kg, 04/17/25 9:43:00 EDT, Dosing Weight Start Date: 05/13/25 Status: Ordered Medication Dispense Status: Completed Quantity: 180.0 Unit: tab(s) Total Allowed Fills: 1 Fills Dispensed: 0 Start: 02-10-2025 traZODone 100 mg oral tablet Dose : 200 mg = 2 tab(s), Oral, qHS, # 180 tab(s), 0 Refill(s), [id number], 162.6, cm, 02/10/25 15:17:00 EDT, Height, kg, 02/10/25 15:17:00 EDT, Dosing Weight Start Date: 02/10/25 Status: Ordered Quantity: 180.0 Unit: tab(s) Repeat number: 1 Start: 10-17-2024 traZODone 100 mg oral tablet Dose : 200 mg = 2 tab(s), Oral, qHS, # 180 tab(s), 0 Refill(s), [id number], 162.6, cm, 10/17/24 13:07:00 EST, Height, kg, 10/17/24 13:07:00 EST, Dosing Weight Start Date: 10/17/24 Status: Ordered Quantity: 180.0 Unit: tab(s) Repeat number: 1 Start: 08-03-2024 traZODone 100 mg oral tablet Dose : 200 mg = 2 tab(s), Oral, qHS, # 180 tab(s), 0 Refill(s), Pharmacy: [facility]/pharmacy #[id number], 162.5, cm, 02/24/24 13:59:00 EDT, Height, kg, 06/29/24 13:37:00 EDT, Dosing Weight Start Date: 08/03/24 Status: Ordered Start: 02-16-2024 traZODone 100 mg oral tablet Dose : 200 mg = 2 tab(s), Oral, qHS, # 180 tab(s), 1 Refill(s), Pharmacy: [facility] #[id number], 162.5, cm, 02/16/24 11:34:00 EDT, Height, kg, 02/16/24 11:34:00 EDT, Dosing Weight Start Date: 02/16/24 Status: Ordered Start: 01-15-2024 traZODone 100 mg oral tablet Dose : 200 mg = 2 tab(s), Oral, qHS, # 60 tab(s), 1 Refill(s), Pharmacy: [facility] #[id number], 166, cm, 12/07/23 11:44:00 EST, Height, kg, 12/07/23 11:44:00 EST, Dosing Weight Start Date: 01/15/24 Status: Ordered Start: 06-03-2023 traZODone 100 mg oral tablet Dose : 100 mg = 1 tab(s), Oral, qHS, # 90 tab(s), 1 Refill(s), Pharmacy: [facility], 166, cm, 06/03/23 15:29:00 EDT, Height, kg, 06/03/23 15:29:00 EDT, Dosing Weight Start Date: 06/03/23 Status: Ordered Start: 10-12-2021 End: 04-07-2023 traZODone 100 mg oral tablet Dose : 100 mg = 1 tab(s), Oral, qHS, # 90 tab(s), 0 Refill(s), Pharmacy: [facility] #[id number], 166, cm, 09/17/22 12:36:00 EST, Height, kg, 09/17/22 12:36:00 EST, Dosing Weight Start Date: 01/07/23 Stop Date: 04/07/23 Status: Ordered Start: 10-12-2021 take 2 tablets by mo uth at bedtime Start: 10-12-2021 take 200 mg by mouth at bedtim e Trazodone Active 200 MG PO AT BEDTIME October 12, 2021 1:00am turmeric extract 500 mg oral capsule (16 sources) Start: 04-08-2020 take 1 capsule by mouth once daily turmeric 500 mg oral capsule See Instructions, 1 cap(s) Oral Daily, 0 Refill(s) Start Date: 04/08/20 Status: Ordered Repeat number: 1 valACYclovir 500 mg oral tablet (1 source) Herpesvirus Nucleoside Analog DNA Polymerase Inhibitor, Herpes Simplex Virus Nucleoside Analog DNA Polymerase Inhibitor, Herpes Zoster Virus Nucleoside Analog DNA Polymerase Inhibitor Start: 04-19-2025 End: 04-24-2025 valACYclovir 500 mg oral tablet Dose : 1,000 mg = 2 tab(s), Oral, q8h, X 5 day(s), # 30 tab(s), 0 Refill(s), 04/24/25 2:09:00 PM EDT, Pharmacy: [facility]/pharmacy #[id number], 162.6, cm, 04/17/25 9:43:00 EDT, Height, 86, kg, 04/17/25 9:43:00 EDT, Dosing Weight Start Date: 04/19/25 Stop Date: 04/24/25 Status: Ordered Quantity: 30.0 Unit: tab(s) Repeat number: 1 24 hr venlafaxine 37.5 mg extended release oral capsule (16 sources) Serotonin and Norepinephrine Reuptake Inhibitor Start: 03-21-2025 venlafaxine 37.5 mg oral capsule, extended release Dose : 37.5 mg = 1 cap(s), Oral, qDay, Decrease from 75mg to 37.5mg for 2-4 weeks before cessation. May start duloxetine 2 weeks before cessation, # 30 cap(s), 0 Refill(s), Pharmacy: [facility]/pharmacy #[id number], 162.6, cm, 03/21/25 15:26:00 EDT, Height, kg, 03/21/25 15:26:00 EDT, Dosing Weight Start Date: 03/21/25 Status: Ordered Quantity: 30.0 Unit: cap(s) Repeat number: 1 Start: 01-06-2025 Effexor XR 75 mg oral capsule, extended release Dose : 75 mg = 1 cap(s), Oral, qDay, # 90 cap(s), 0 Refill(s), Pharmacy: [facility]/pharmacy #[id number], 162.6, cm, 01/06/25 9:09:00 EDT, Height, kg, 01/06/25 9:09:00 EDT, Dosing Weight Start Date: 01/06/25 Status: Ordered Quantity: 90.0 Unit: cap(s) Repeat number: 1 Start: 10-17-2024 Effexor XR 75 mg oral capsule, extended release Dose : 75 mg = 1 cap(s), Oral, qDay, # 90 cap(s), 0 Refill(s), Pharmacy: [facility]/pharmacy #[id number], 162.6, cm, 10/17/24 13:07:00 EST, Height, kg, 10/17/24 13:07:00 EST, Dosing Weight Start Date: 10/17/24 Status: Ordered Quantity: 90.0 Unit: cap(s) Repeat number: 1 Start: 06-14-2024 Effexor XR 75 mg oral capsule, extended release Dose : 75 mg = 1 cap(s), Oral, qDay, # 90 cap(s), 0 Refill(s), Pharmacy: [facility]/pharmacy #[id number], 162.5, cm, 02/24/24 13:59:00 EDT, Height, kg, 02/24/24 13:59:00 EDT, Dosing Weight Start Date: 06/14/24 Status: Ordered Start: 02-16-2024 Effexor XR 75 mg oral capsule, extended release Dose : 75 mg = 1 cap(s), Oral, qDay, # 90 cap(s), 1 Refill(s), Pharmacy: [facility] #[id number], 162.5, cm, 02/16/24 11:34:00 EDT, Height, kg, 02/16/24 11:34:00 EDT, Dosing Weight Start Date: 02/16/24 Status: Ordered Start: 01-05-2024 Effexor XR 75 mg oral capsule, extended release Dose : 75 mg = 1 cap(s), Oral, qDay, short term refill in PCP absence, # 90 cap(s), 0 Refill(s), Pharmacy: [facility] #[id number], 166, cm, 12/07/23 11:44:00 EST, Height, kg, 12/07/23 11:44:00 EST, Dosing Weight Start Date: 01/05/24 Status: Ordered Start: 10-27-2023 Effexor XR 75 mg oral capsule, extended release Dose : 75 mg = 1 cap(s), Oral, qDay, short term refill in PCP absence, # 30 cap(s), 0 Refill(s), Pharmacy: [facility] #[id number], 166, cm, 10/02/23 13:59:00 EST, Height, kg, 10/02/23 13:59:00 EST, Dosing Weight Start Date: 10/27/23 Status: Ordered venlafaxine ER 7 5 mg capsule,extended release 24 hr active Ester Ferris MA [facility] Completed/Discontinued Medications Medication Drug Class(es) Dates Sig (Normalized) Sig (Original) acetaminophen 325 mg / oxyCODONE hydrochloride 5 mg oral tablet (7 sources) Opioid Agonist Start: 01-03-2014 End: 01-05-2014 Oxycodone-Acetamino phen 1 TABLET tablet Discontinued 1 {tbl} PO EVERY 4 HOURS NEEDED as needed for Pain 10 January 03, 2014 12:00am January 05, 2014 10:13am Start: 01-03-2014 End: 01-05-2014 take 1 tablet by mouth every four hours as needed Oxycodone-Acetaminophen Discontinued 1 TABLET PO EVERY 4 HOURS NEEDED January 03, 2014 12:00am January 05, 2014 10:13am ciprofloxacin 500 mg oral tablet (10 sources) Quinolone Antimicrobial Start: 06-16-2022 End: 10-25-2024 take 1 tablet by mouth twice daily Ciprofloxacin Hcl (Cipro) 500 mg tablet Discontinued 500 mg PO TWICE A DAY June 16, 2022 12:00am October 25, 2024 12:35pm Start: 10-29-2021 End: 11-02-2021 take 1 tablet by mouth twice daily Ciprofloxacin Hcl 500 MG tablet Discontinued 500 mg PO TWICE A DAY October 29, 2021 1:00am November 02, 2021 9:47am citalopram 20 mg oral tablet (6 sources) Serotonin Reuptake Inhibitor Start: 08-05-2022 End: 07-06-2025 take 1 tablet by mouth once daily Citalopram 20 mg tablet Discontinued 20 mg PO DAILY August 05, 2022 12:00am July 06, 2025 10:01am Start: 10-12-2021 take 20 mg by mouth once daily Citalopram Active 20 MG PO DAILY October 12, 2021 1:00am docusate sodium 100 mg oral capsule (2 sources) Start: 10-28-2024 End: 07-06-2025 take 1 capsule by mouth twice daily Docusate Sodium 100 mg capsule Discontinued 100 mg PO TWICE A DAY 20 0 October 28, 2024 1:00am July 06, 2025 10:01am 0.4 ml enoxaparin sodium 100 mg/ml prefilled syringe (2 sources) Low Molecular Weight Heparin Start: 10-28-2024 End: 07-06-2025 Enoxaparin (Lovenox) 40 mg/0.4 mL syringe Discontinued 40 mg SC DAILY 5.6 14 0 October 28, 2024 1:00am July 06, 2025 10:01am fluticasone propionate 0.05 mg/actuat metered dose nasal spray (2 sources) Corticosteroid Start: 11-04-2022 End: 02-02-2023 take 1 dose nasal route once daily in the morning fluticasone proprionate NASAL 50 mcg/ spray Dose = 1 spray(s), Nostril, each, qAM, # 48 gram(s), 0 Refill(s), Pharmacy: [facility] #[id number], 166, cm, 09/17/22 12:36:00 EST, Height, kg, 09/17/22 12:36:00 EST, Dosing Weight Start Date: 11/04/22 Stop Date: 02/02/23 Status: Ordered Start: 09-09-2022 take 1 dose nasal ro [place] once daily in the morning fluticasone proprionate NASAL 50 mcg/ spray Dose = 1 spray(s), Nostril, each, qAM, # 16 gram(s), 1 Refill(s), Pharmacy: [facility]/pharmacy #[id number], 166, cm, 09/09/22 14:30:00 EST, Height Start Date: 09/09/22 Status: Ordered ketorolac tromethamine 10 mg oral tablet (10 sources) Nonsteroidal Anti-inflammatory Drug, Cyclooxygenase Inhibitor Start: 06-16-2022 End: 10-25-2024 take 1 tablet by mouth every six hours as needed for pain Ketorolac 10 mg tablet Discontinued 10 mg PO EVERY 6 HOURS as needed for pain 10 5 0 June 16, 2022 12:00am October 25, 2024 12:35pm Start: 03-15-2022 End: 10-25-2024 take 1 tablet by mouth every eight hours as needed for pain Ketorolac 10 mg tablet Discontinued 10 mg PO Q8H as needed for pain 15 5 0 March 15, 2022 12:00am October 25, 2024 12:35pm nitrofurantoin, macrocrystals 25 mg / nitrofurantoin, monohydrate 75 mg oral capsule (8 sources) Nitrofuran Antibacterial Start: 11-18-2015 End: 11-30-2015 take 1 capsule by mouth every twelve hours Nitrofurantoin Monohyd/M-Cryst 100 MG capsule Discontinued 100 mg PO EVERY 12 HOURS 10 0 November 18, 2015 1:00am November 30, 2015 3:24pm oxyCODONE hydrochloride 5 mg oral tablet (2 sources) Opioid Agonist Start: 10-28-2024 End: 07-06-2025 take 1 tablet by mouth every six hours as needed for pain Oxycodone 5 mg tablet Discontinued 5 mg PO EVERY 6 HOURS as needed for pain 28 7 0 October 28, 2024 July 06, 2025 10:02am Other acute postprocedural pain Other acute postprocedural pain PARoxetine hydrochloride 40 mg oral tablet (5 sources) Serotonin Reuptake Inhibitor Start: 06-16-2022 End: 10-25-2024 take 1 tablet by mouth once daily Paroxetine Hcl (Paxil) 40 mg Tablet Discontinued 40 mg PO DAILY June 16, 2022 12:00am October 25, 2024 12:36pm Check with primary doctor prucalopride 2 mg oral tablet (4 sources) Start: 08-05-2022 End: 10-25-2024 take 1 tablet by mouth once daily Prucalopride 2 mg tablet Discontinued 2 mg PO DAILY August 05, 2022 12:00am October 25, 2024 12:36pm tiZANidine 2 mg oral capsule (5 sources) Central alpha-2 Adrenergic Agonist Start: 07-07-2025 End: 07-20-2025 tiZANidine 2 mg oral capsule Dose : 2 mg = 1 cap(s), Oral, q8h, PRN as needed for muscle spasm, # 30 cap(s), 0 Refill(s), Pharmacy: [facility]/pharmacy #[id number], Pain in joint involving right pelvic region and thigh Degenerative disc disease, cervical, 163.5, cm, 07/07/25 9:38:00 EDT, Height, kg, 07/07/25 9:38:00 EDT, Dosing Weight Start Date: 07/10/25 Stop Date: 07/20/25 Status: Ordered Medication Dispense Status: Completed Quantity: 30.0 Unit: cap(s) Total Allowed Fills: 1 Fills Dispensed: 0 Indications: Other cervical disc degeneration, unspecified cervical region; Pain in right hip; Problems Active Problems Problem Classification Problem Date Documented Da te Episodic/Chronic Abdominal pain (20 sources) Right flank pain; Translations: [Unspecified abdominal pain] Onset: 5 01-03-2025 Episodic Allergic reactions (1 source) Contact dermatitis 07-27-2025 Episodic Anxiety disorders (2 sources) Anxiety disorder; Translations: [Anxiety disorder, unspecified] Onset: 5 Chronic Calculus of urinary tract (20 sources) Ureteric stone; Translations: [Calculus of ureter] Onset: 5 Episodic Chronic kidney disease (10 sources) Chronic kidney disease stage 3; Translations: [Chronic kidney disease, stage 3 unspecified] Onset: 4 Chronic Diabetes mellitus with complications (1 source) Renal disorder due to type 2 diabetes mellitus; Translations: [Type 2 diabetes mellitus with diabetic nephropathy] Chronic Diabetes mellitus without complication (3 sources) Prediabetes; Translations: [Prediabetes] Onset: 5 Episodic Disorders of lipid metabolism (15 sources) Mixed hyperlipidemia; Translations: [Mixed hyperlipidemia] Onset: 5 10-17-2024 Chronic Esophageal disorders (20 sources) Gastroesophageal reflux disease; Translations: [Gastroesophageal reflux disease without esophagitis] Onset: 4 08-28-2023 Chronic Fever of unknown origin (7 sources) Fever; Translations: [Fever, unspecified] 11-06-2021 Episodic Genitourinary symptoms and ill-defined conditions (20 sources) H/O: kidney disease; Translations: [Increased frequency of urination] Onset: 5 10-17-2024 Episodic Headache; including migraine (7 sources) Headache; Translations: [Headache] 10-20-2021 Episodic Menopausal disorders (20 sources) Menopausal flushing 06-03-2023 Chronic Mood disorders (20 sources) Recurrent major depressive episodes, moderate ; Translations: [Recurrent major depression] Onset: 4 04-02-2020 Chronic Osteoarthritis (1 source) Localized, primary osteoarthritis of the shoulder region; Translations: [Primary osteoarthritis, right shoulder] Chronic Other aftercare (1 source) 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; Translations: [penitentiary (current) use of antibiotics] Onset: 5 Episodic Other aftercare (1 source) penitentiary (current) use of oral hypoglycemic drugs; Translations: [remote computer terminal operator (current) use of oral hypoglycemic drugs] Onset: 5 Episodic Other bone disease and musculoskeletal deformities (20 sources) Cervical somatic dysfunction 09-17-2022 Episodic Other bone disease and musculoskeletal deformities (20 sources) Somatic dysfunction of lower limb 09-17-2022 Episodic Other bone disease and musculoskeletal deformities (20 sources) Somatic dysfunction of lumbar region 09-17-2022 Episodic Other bone disease and musculoskeletal deformities (20 sources) Somatic dysfunction of pelvic region 09-17-2022 Episodic Other bone disease and musculoskeletal deformities (20 sources) Somatic dysfunction of rib 09-17-2022 Episodic Other bone disease and musculoskeletal deformities (20 sources) Somatic dysfunction of sacral region 09-17-2022 Episodic Other bone disease and musculoskeletal deformities (20 sources) Somatic dysfunction of thoracic region 09-17-2022 Episodic Other circulatory disease (7 sources) History of transient ischemic attack; Translations: [Personal history of transient ischemic attack (TIA), and cerebral infarction without residual deficits] Episodic Other connective tissue disease (4 sources) Plantar fascial fibromatosis; Translations: [Plantar fascial fibromatosis] Episodic Other connective tissue disease (1 source) Musculoskeletal test abnormal; Translations: [Other symptoms and signs involving the musculoskeletal system] Episodic Other connective tissue disease (1 source) H/O: arthrodesis; Translations: [Arthrodesis status] Episodic Other connective tissue disease (14 sources) Tear of right rotator cuff 06-29-2024 Episodic Other connective tissue disease (13 sources) Plantar fasciitis 10-17-2024 Episodic Other connective tissue disease (10 sources) Trochanteric bursitis 03-21-2025 Episodic Other connective tissue disease (10 sources) Pes anserinus bursitis of right knee 03-21-2025 Episodic Other diseases of kidney and ureters (14 sources) Hydronephrosis; Translations: [Unspecified hydronephrosis] 10-20-2021 Episodic Other diseases of kidney and ureters (7 sources) Obstruction of ureter; Translations: [Crossing vessel and stricture of ureter without hydronephrosis] 11-06-2021 Episodic Other gastrointestinal disorders (20 sources) Irritable bowel syndrome; Translations: [Irritable bowel syndrome without diarrhea] Onset: 5 06-26-2021 Chronic Other gastrointestinal disorders (2 sources) Irritable bowel syndrome without diarrhea; Translations: [Irritable bowel syndrome, unspecified] Onset: 5 Chronic Other gastrointestinal disorders (1 source) H/O: gastrointestinal disease; Translations: [Personal history of other diseases of the digestive system] Episodic Other gastrointestinal disorders (2 sources) Other constipation; Translations: [Other constipation] Onset: 5 Episodic Other gastrointestinal disorders (2 sources) Chronic constipation; Translations: [Other constipation] 07-06-2025 Episodic Other gastrointestinal disorders (2 sources) Abdominal bloating; Translations: [Abdominal distension (gaseous)] 07-06-2025 Episodic Other gastrointestinal disorders (1 source) Abdominal distension (gaseous); Translations: [Abdominal distension (gaseous)] Onset: 5 Episodic Other injuries and conditions due to external causes (20 sources) Muscle strain 07-21-2023 Episodic Other nervous system disorders (1 source) Other chronic pain; Translations: [Other chronic pain] Onset: 5 Chronic Other nervous system disorders (2 sources) Acute postoperative pain; Translations: [Other acute postprocedural pain] 10-28-2024 Episodic Other non-traumatic joint disorders (2 sources) Pain of right shoulder joint; Translations: [Pain in right shoulder] Episodic Other non-traumatic joint disorders (1 source) Shoulder stiff; Translations: [Stiffness of right shoulder, not elsewhere classified] Episodic Other non-traumatic joint disorders (5 sources) Arthralgia of the pelvic region and thigh 07-07-2025 Episodic Other nutritional; endocrine; and metabolic disorders (1 source) Localized adiposity; Translations: [Localized adiposity] Chronic Other screening for suspected conditions (not mental disorders or infectious disease) (1 source) Endometrium thickened; Translations: [Abnormal findings on diagnostic imaging of other specified body structures] 03-03-2016 Chronic Other skin disorders (2 sources) Neck swelling; Translations: [Localized swelling, mass and lump, neck] Onset: 5 07-13-2025 Episodic Other upper respiratory infections (7 sources) Sinusitis; Translations: [Chronic sinusitis, unspecified] 10-20-2021 Chronic Other upper respiratory infections (6 sources) Acute maxillary sinusitis 09-09-2022 Episodic Residual codes; unclassified (4 sources) Pain; Translations: [Pain, unspecified] 06-16-2022 Episodic Residual codes; unclassified (2 sources) Pain, unspecified; Translations: [Generalized pain] Episodic Residual codes; unclassified (20 sources) At risk of disease 06-26-2021 Episodic Residual codes; unclassified (20 sources) Insomnia 04-02-2020 Episodic Residual codes; unclassified (18 sources) Postmenopausal state 12-07-2023 Episodic Residual codes; unclassified (2 sources) Family history of cancer of colon; Translations: [Family history of malignant neoplasm of digestive organs] 07-06-2025 Episodic Comment on above: Mom at 48y/o Residual codes; unclassified (1 source) Family history of malignant neoplasm of digestive organs; Translations: [Family history of malignant neoplasm of digestive organs] Onset: 5 Episodic Septicemia (except in labor) (7 sources) Sepsis; Translations: [Sepsis, unspecified organism] 10-20-2021 Episodic Spondylosis; intervertebral disc disorders; other back problems (20 sources) Degeneration of cervical intervertebral disc; Translations: [Other cervical disc degeneration at C5-C6 level] Onset: 5 02-16-2024 Chronic Spondylosis; intervertebral disc disorders; other back problems (20 sources) Neck pain; Translations: [Backache] Onset: 4 02-16-2024 Episodic Sprains and strains (1 source) Strain of rotator cuff of shoulder; Translations: [Strain of muscle(s) and tendon(s) of the rotator cuff of right shoulder, subsequent encounter] Episodic Unclassified (6 sources) Endometrial thickening on ultra sound 03-03-2016 Unclassified (20 sources) Long-term current use of proton pump inhibitor therapy 08-28-2023 Unclassified (20 sources) Pain of knee region 06-03-2023 Unclassified (20 sources) Pain of right shoulder region 08-28-2023 Unclassified (3 sources) Rupture of rotator cuff of shoulder 10-17-2024 Urinary tract infections (20 sources) Pyelonephritis; Translations: [Tubulo-interstitial nephritis, not specified as acute or chronic] Onset: 08-27-2022 Episodic Viral infection (3 sources) Zoster without complications; Translations: [Zoster without complications] Onset: Episodic Past or Other Problems Problem Classification Problem Date Documented Date Episodic/Chronic Complication of device; implant or graft (1 source) Nonunion of bone graft; Translations: [Other complications of bone graft] Onset: 02-22-2025 02-22-2025 Episodic Malaise and fatigue (20 sources) Fatigue; Translations: [Asthenia] Onset: 01-27-2025 06-25-2021 Episodic Other connective tissue disease (1 source) Complete rotator cuff tear or rupture of right shoulder, not specified as traumatic; Translations: [Complete rupture of rotator cuff] Onset: 06-29-2024 12-21-2024 Episodic Other connective tissue disease (1 source) Other shoulder lesions, right shoulder; Translations: [Disorders of bursae and tendons in shoulder region, unspecified] Onset: 05-31-2024 06-08-2024 Episodic Other connective tissue disease (1 source) Plantar fascial fibromatosis; Translations: [Plantar fascial fibromatosis] Onset: 11-19-2024 Episodic Other non-traumatic joint disorders (2 sources) Pain in right shoulder; Translations: [Pain in right shoulder] Onset: 01-27-2025 Episodic Other non-traumatic joint disorders (1 source) Stiffness of right shoulder, not elsewhere classified; Translations: [Stiffness of right shoulder, not elsewhere classified] Onset: 01-27-2025 Episodic Other screening for suspected conditions (not mental disorders or infectious disease) (2 sources) Encounter for screening for malignant neoplasm of cervix; Translations: [Encounter for screening for malignant neoplasm of cervix] Onset: 09-29-2023 Episodic Results Test Name Value Interpretation Reference Range Facility No Panel Informationon 07-27 Culture Urine 10,000 - 50,000 cfu/ ml Mixed growth consistent with normal urogenital abi. [facility] Work Phone: XR ABDOMEN APon 07-22-2025 XR ABDOMEN AP ORIGINAL HISTORY: Constipation COMPARISON: No FINDINGS: There is formed stool and gas in the large bowel. There is a nonobstructive bowel gas pattern. Free air is not assessed. There surgical changes in the pelvis. No abnormal masses or fluid collections are identified. IMPRESSION: No obstruction Interpreted by: Hollie Rutledge MD Preliminary Report By: Hollie Rutledge MD Electronically signed By Hollie Rutledge MD Dictated Date: 07/22/2025 9:25:43 AM Prelim Date: 07/22/2025 9:26:19 AM Sign Date: 07/22/2025 9:26:19 AM Ordering Provider: ROSSI ABDI RP [facility] XR ABDOMEN APon 07-19-2025 XR ABDOMEN AP ORIGINAL EXAMINATION: ONE SUPINE XRAY VIEW(S) OF THE ABDOMEN07/17/2025 10:40 am COMPARISON: CT abdomen pelvis 04/17/2025 HISTORY: ORDERING SYSTEM PROVIDED HISTORY: Reason for Exam: other constipatient sitz markers day 3 FINDINGS: No calculi visualized. Sitz markers predominantly in the sigmoid colon and rectum. No acute osseous abnormality. IMPRESSION: Sitz markers in the sigmoid colon and rectum. I have personally reviewed the images of this examination and agree with the resident's findings and interpretation Interpreted by: Ilir Borrero Preliminary Report By: Pan Shah Electronically signed By Ilir Borrero Dictated Date: 07/19/2025 8:35:43 AM Prelim Date: 07/19/2025 11:29:39 AM Sign Date: 07/19/2025 11:29:39 AM Ordering Provider: ROSSI ABDI RP [facility] Relevant diagnostic tests/la boratory data Narrativeon 07-13-2025 Fall risk assessment no [facility] [employer] Work Phone: MEDS REVIEW Documentation of cur rent medications (procedure) [employer] Work Phone: MEDS REVIEWD Medications reviewed without changes [employer] Work Phone: XR HIP RIGHT W/PELVIS 4 VIEW Son 07-07-2025 XR HIP RIGHT W/PELVIS 4 VIEWS ORIGINAL HISTORY: Pain COMPARISON: CT 17 April 2025 FINDINGS: No acute fracture is seen. Alignment of the hip is within normal limits. The joint space is maintained. The soft tissues are unremarkable. IMPRESSION: Unremarkable right hip. Interpreted by: Hollie Rutledge MD Preliminary Report By: oHllie Rutledge MD Electronically signed By Hollie Rutledge MD Dictated Date: 07/07/2025 11:18:48 AM Prelim Date: 07/07/2025 11:19:40 AM Sign Date: 07/07/2025 11:19:40 AM Ordering Provider: [facility] XR SACROILIAC JOINTS MINIMUM 3 VIEWSon 07-07-2025 XR SACROILIAC JOINTS MINIMUM 3 VIEWS ORIGINAL HISTORY: Pain COMPARISON: No FINDINGS: There are no acute fractures or dislocations. Alignment of the sacroiliac joints is within normal limits. Joint spaces are maintained. IMPRESSION: Unremarkable examination. Interpreted by: Hollie Rutledge MD Preliminary Report By: Hollie Rutledge MD Electronically signed By Hollie Rutledge MD Dictated Date: 07/07/2025 11:17:50 AM Prelim Date: 07/07/2025 11:18:32 AM Sign Date: 07/07/2025 11:18:32 AM Ordering Provider: [facility] XR SPINE LUMBAR FLEX/EXT W/O BLIQUESon 07-07-2025 XR SPINE LUMBAR FLEX/EXT W/OBLIQUES ORIGINAL HISTORY: Pain COMPARISON: No FINDINGS: There are 5 lumbar type vertebral bodies counting from the last visible rib. Alignment is within normal limits. There is no significant subluxation on flexion or extension views. The individual vertebral bodies are intact. There is mild disc space narrowing, mainly at L4-L5. There are mild lower lumbar facet degenerative changes. IMPRESSION: Mild lower lumbar degenerative changes. Interpreted by: Hollie Rutledge MD Preliminary Report By: Hollie Rutledge MD Electronically signed By Hollie Rutledge MD Dictated Date: 07/07/2025 11:19:51 AM Prelim Date: 07/07/2025 11:21:24 AM Sign Date: 07/07/2025 11:21:24 AM Ordering Provider: [facility] Gastroenterology Visit Repor ton 07-06-2025 Gastroenterology Visit Report [facility]enter[facility] [address] [place] [address] OFFICE VISIT Date of Service: 07/06/25 MR#: [id number] Acct: [id number] Name: ASHLEY GOODE Rep #: [id number] : 1970 Provider: VETO smalls Age/Sex: 54/F Location: [facility] Status: Signed with Addenda ADDENDUM by Judy Canales on 07/13/25 at 1316 Office Procedure Documentation entered by Judy Canales 07/13/25 13:16: Miscellaneous Procedure Procedure Performed By: Procedure performed by: Judy Canales Details Written instructions given and patient voiced understanding. Date cc: * Signed Intake Vital Signs 01/03/25 16:14 07/06/25 10:16 Height 5 ft 4 in 5 ft 4 in Weight: 196 lb BMI 33.6 BP 125/78 H Pulse 97 Temp 97.9 F Temp Source Temporal Pulse Oximetry (%) 94 Oxygen Delivery Method room air Intake Visit Reasons: Pre-Colonoscopy Screening/Fam Hx Colon CA Chief Complaint: stomach problems Vice President Required: No Accompanied by: Self Is patient in pain?: No Allergies meperidine HCl (From Demerol) Allergy (Verified 07/06/25 10:17) Other morphine Allergy (Verified 07/06/25 10:17) Rash Medications ???Medication ???Instructions ???Recorded ???Confirmed ???Type trazodone 100 mg tablet 200 mg PO QHS 10/12/21 07/06/25 Hi story nitrofurantoin macrocrystal 100 mg 100 mg PO QHS Check with primary 06/16/22 07/06/25 History capsule doctor estradiol 1 mg tablet 1 mg PO DAILY 10/25/24 07/06/25 Hi story medroxyprogesterone 5 mg tablet 5 mg PO DAILY 10/25/24 07/06/25 Hi story omeprazole 20 mg capsule,delayed 20 mg PO DAILY 10/25/24 07/06/25 H istory release ondansetron 4 mg disintegrating 4 mg PO Q8H PRN nausea and 5 07/06/25 Rx tablet vomiting #20 tabs sodium sul 1.479 gram-potas ch See Rx Instructions PO .COMPLEX 07/06/25 Rx 0.188 gram-magnes sul 0.225 gram #28 tabs tablet (Sutab) PFSH Medical History Kidney disease UTI (urinary tract infection) High cholesterol History of IBS GERD (gastroesophageal reflux disease) Depression Fatigue IBS (irritable bowel syndrome) Kidney stones Insomnia Anxiety Ovarian cyst Tubal Personal history of kidney stones Hx of renal impairment Surgical History History of spinal fusion ( 02/2024) History of elbow surgery History of lithotripsy H/O ovarian cystectomy H/O dilation and curettage Hx of tubal ligation History of Family History Mother Colon cancer Father Diabetes Other Anxiety Arthritis CVA (cerebral vascular accident) Depression Kidney disease [facility] 2 current occupational status: employed current occupation: [employer] Smoking Status: Never smoker alcohol intake: current details: rarely substance use type: does not use frequency: 3-4 times per week HPI HPI Chief Complaint: stomach problems Details: 54-year-old female presents for initial consultation with H significant for IBS-C, prediabetes, GERD on PPI, presents for consultation post admission for complaints of right sided abdominal pain. She was seen by gastroenterology during her March admission at which point she had been experiencing severe onset of acute abdominal pain with no known triggers. She described this pain as intense, sharp, and stabbing affecting the RUQ and RLQ. She reports a history of moderate to severe constipation going up to 7 to 10 days without a bowel movement if not longer. She had reported failing multiple medical therapies but could only recall MiraLAX and Linzess with certainty. She also had reported previous bidirectional endoscopies were unremarkable. She was also seen by surgery during admission. CT scan of her abdomen and pelvis was completed that showed no acute findings with bilateral nonobstructive kidney stones. She was found to have a stable hepatic lobe cyst with unremarkable gallbladder, spleen, pancreas, and adrenal glands. She then had an ultrasound of her abdomen that showed no gallstones with a common bile duct slightly dilated at 8 mm, no findings of acute cholecystitis. She was found to have a normal white count of 5.9 with a stable hemoglobin. Total bilirubin and LFTs were all within normal limits. No surgical interventions were planned. CT abdomen and pelvis with oral contrast only completed 04/17/2025 suggested mild wall thickening of the right ureter; otherwise unremarkable. Abdominal ultrasound compl (more content not included)... Normal [facility] No Panel Informationon 07-03 Culture Urine No growth at 48 hours. [facility] Work Phone: MA MAMMOGRAM DIAGNOSTIC BILA TERAL W/TOMOon 06-30-2025 MA MAMMOGRAM DIAGNOSTIC BILATERAL W/DYLAN ORIGINAL FROM: [facility] [address], [place] [address] PROCEDURE FOR: ASHLEY GOODE [address] [place] [address] Home: PID#: [id number] Exam#: [id number] : 1970 Age: 54 TO: DOV MEADE [address] [place] [address] Fax: NO FAX EXAMINATION: DIAGNOSTIC BILATERAL MAMMOGRAM WITH TOMOSYNTHESIS, 06/30/2025 9:27 am TECHNIQUE: Tomosynthesis was performed as part of the diagnostic bilateral mammogram. 2D standard and 3D tomosynthesis combination imaging performed. Current study was also evaluated with a Computer Aided Detection (CAD) system. COMPARISON: October 2024, March 20, 2024, April 15, 2024, February 10, 2018, January 22, 2015 HISTORY: ORDERING SYSTEM PROVIDED HISTORY: Reason for Exam: abnormal US of the breast FINDINGS: BREAST DENSITY: The breasts are heterogeneously dense, which may obscure small masses. In the left breast at 12 o'clock anterior depth, there is a 1.8 cm mass, stable allowing for technical differences. Benign densities are seen in both breasts. No other significant masses, calcifications, or other findings. IMPRESSION: Mass in the left breast at 12 o'clock anterior depth. Left breast ultrasound was performed and will be reported separately. BIRADS: BI-RADS: 0: Incomplete: Need Additional Imaging Evaluation RECALL: immediate RECALL TYPE: Left US LETTER SENT: Abnormal-Needs additional work up BI-RADS 0 Interpreted by: Tiny Reyes Preliminary Report By: Tiny Reyes Electronically signed By Tiny Reyes Dictated Date: 06/30/2025 9:59:13 AM Prelim Date: 06/30/2025 10:13:28 AM Sign Date: 06/30/2025 10:13:28 AM Ordering Provider: DOV MEADE Huc: RADHA PACHECO RT(R)(M)(CT) letter sent: Abnormal-Needs additional work up BI-RADS 0 Mammogram BI-RADS: 0 Needs additional imaging evaluation Normal [facility] US BREAST LEFT LIMITEDon US BREAST LEFT LIMITED ORIGINAL FROM: [place] [address] PROCEDURE FOR: ASHLEY GOODE [address] [place] [address] Home: PID#: [id number] Exam#: [id number] : 1970 Age: 54 TO: DOV MEADE D.O. [address] [place] [id number] Fax: NO FAX EXAMINATION: ULTRASOUND OF THE LEFT BREAST 06/30/2025 9:27 am TECHNIQUE: Color flow and rob scale targeted ultrasound of the left breast 12 o'clock were performed. Permanently stored images were reviewed. COMPARISON: June 30, 2025, October 26, 2024, April 19, 2024, April 15, 2024, February 10, 2018, January 22, 2015 HISTORY: ORDERING SYSTEM PROVIDED HISTORY: Reason for Exam: abnormal US of the breast FINDINGS: In the left breast 12 o'clock 4 cm from the nipple, there is a cyst measuring 1.7 cm, decreased in size, likely correlating with the area of interest on mammography. IMPRESSION: Decrease in size of the cyst in the left breast at 12 o'clock 4 cm from the nipple, benign. The patient may return to annual mammographic screening. BIRADS: BI-RADS: 2: Benign RECALL: return to screening RECALL TYPE: mammo LETTER SENT: Normal BI-RADS 1 and 2 Interpreted by: Tiny Reyes Preliminary Report By: Tiny Reyes Electronically signed By Tiny Reyes Dictated Date: 06/30/2025 10:13:40 AM Prelim Date: 06/30/2025 10:14:52 AM Sign Date: 06/30/2025 10:14:52 AM Ordering Provider: DOV MEADE Huc: SHARON AMARAL RT(R)(M) RDMS letter sent: Normal BI-RADS 1 and 2 Ultrasound BI-RADS: 2 Benign Normal [facility] .Auto Diffon 04-19-2025 Basophil, Absolute 0.0 10 3/mcL Normal 0.0-0.3 [facility] Comment on above: Performed By: #### C RP, ANEU, TROPHS, ESR, LIP, CBC, GFR, CK, MG, CMP, ADIFF, LAC #### [address] [address] Basophils/100 WBC (Bld) 0.7 % Normal 0.0-2.5 [facility] Comment on above: Performed By: #### C RP, ANEU, TROPHS, ESR, LIP, CBC, GFR, CK, MG, CMP, ADIFF, LAC #### [address] [address] Eosinophil, Absolute 0.2 10 3/mcL Normal 0.0-0.7 [facility] Comment on above: Performed By: #### C RP, ANEU, TROPHS, ESR, LIP, CBC, GFR, CK, MG, CMP, ADIFF, LAC #### [address] [address] Eosinophils/100 WBC (Bld) 2.9 % Normal 0.0-6.0 [facility] Comment on above: Performed By: #### C RP, ANEU, TROPHS, ESR, LIP, CBC, GFR, CK, MG, CMP, ADIFF, LAC #### [address] [address] Lymphocyte, Absolute 1.1 10 3/mcL Normal 0.9-4.3 [facility] Comment on above: Performed By: #### C RP, ANEU, TROPHS, ESR, LIP, CBC, GFR, CK, MG, CMP, ADIFF, LAC #### [address] [address] Lymphocytes/100 WBC (Bld) 16.1 % Low 20.0-40.0 [facility] Comment on above: Performed By: #### C RP, ANEU, TROPHS, ESR, LIP, CBC, GFR, CK, MG, CMP, ADIFF, LAC #### [address] [address] Monocyte, Absolute 0.4 10 3/mcL Normal 0.1-1.4 [facility] Comment on above: Performed By: #### C RP, ANEU, TROPHS, ESR, LIP, CBC, GFR, CK, MG, CMP, ADIFF, LAC #### [address] [address] Monocytes/100 WBC (Bld) 6.5 % Normal 2.0-13.0 [facility] Comment on above: Performed By: #### C RP, ANEU, TROPHS, ESR, LIP, CBC, GFR, CK, MG, CMP, ADIFF, LAC #### [address] [address] Neutrophils/100 WBC (Bld) 73.8 % Normal 50.0-75.0 [facility] Comment on above: Performed By: #### C RP, ANEU, TROPHS, ESR, LIP, CBC, GFR, CK, MG, CMP, ADIFF, LAC #### [address] [address] .GFRon 04-19-2025 Estimated Glomerular Filtration Rate 80 ml/min/1.73sqm Normal [facility] Comment on above: Result Comment: Stages of Chronic Kidney Disease (CKD) Stage Description eGFR(ml/min/1.73 sq.m.) CKD 1 Normal kidney function or >=90 normal kindney function with possible kidney damage (ex. Proteinuria) CKD 2 Kidney damage with mild loss 60-89 of kidney function CKD 3a Mild to moderate loss of kidney 45-59 function CKD 3b Moderate to severe loss of 30-44 of kindey function CKD 4 Severe loss of kidney function 15-29 CKD 5 Kidney failure <15 Note: (go live 2024) the eGFR calculation was updated to the 2020 CKD-EPI creatinine equation without a race factor to calculate the eGFR results. Performed By: #### C RP, ANEU, TROPHS, ESR, LIP, CBC, GFR, CK, MG, CMP, ADIFF, LAC #### [address] [address] .NEUABSon 04-19-2025 Neutrophil, Absolute 4.9 10 3/mcL Normal 2.3-8.1 [facility] Comment on above: Performed By: #### C RP, ANEU, TROPHS, ESR, LIP, CBC, GFR, CK, MG, CMP, ADIFF, LAC #### [address] [address] BMPon 04-19-2025 BUN/Creatinine Ratio 8.0 ratio Low 10.0-22.0 [facility] Comment on above: Performed By: #### C RP, ANEU, TROPHS, ESR, LIP, CBC, GFR, CK, MG, CMP, ADIFF, LAC #### [place] [id number] Calcium [Mass/Vol] 9.3 mg/dL Normal 8.7-10.4 [facility] Comment on above: Performed By: #### C RP, ANEU, TROPHS, ESR, LIP, CBC, GFR, CK, MG, CMP, ADIFF, LAC #### [address] [address] Chloride [Moles/Vol] 105 mmol/L Normal 98-110 [facility] Comment on above: Performed By: #### C RP, ANEU, TROPHS, ESR, LIP, CBC, GFR, CK, MG, CMP, ADIFF, LAC #### [address] [address] CO2 [Moles/Vol] 26 mmol/L Normal 22-32 [facility] Comment on above: Performed By: #### C RP, ANEU, TROPHS, ESR, LIP, CBC, GFR, CK, MG, CMP, ADIFF, LAC #### [address] [address] Creatinine [Mass/Vol] 0.87 mg/dL Normal 0.50-1.20 [facility] Comment on above: Result Comment: Test ing performed on [employer] analyzer using enzymatic creatinine methodology. Performed By: #### C RP, ANEU, TROPHS, ESR, LIP, CBC, GFR, CK, MG, CMP, ADIFF, LAC #### [address] [address] Electrolyte Balance 8.0 mEq/L Normal 4.0-15.0 [facility] Comment on above: Performed By: #### C RP, ANEU, TROPHS, ESR, LIP, CBC, GFR, CK, MG, CMP, ADIFF, LAC #### [place] [id number] Glucose [Mass/Vol] 110 mg/dL Normal 70-110 [facility] Comment on above: Performed By: #### C RP, ANEU, TROPHS, ESR, LIP, CBC, GFR, CK, MG, CMP, ADIFF, LAC #### [address] [address] Potassium [Moles/Vol] 4.0 mmol/L Normal 3.5-5.0 [facility] Comment on above: Performed By: #### C RP, ANEU, TROPHS, ESR, LIP, CBC, GFR, CK, MG, CMP, ADIFF, LAC #### [address] [address] Sodium [Moles/Vol] 139 mmol/L Normal 136-145 [facility] Comment on above: Performed By: #### C RP, ANEU, TROPHS, ESR, LIP, CBC, GFR, CK, MG, CMP, ADIFF, LAC #### [address] [address] Urea nitrogen [Mass/Vol] 7.0 mg/dL Low 8.0-22.0 [facility] Comment on above: Performed By: #### C RP, ANEU, TROPHS, ESR, LIP, CBC, GFR, CK, MG, CMP, ADIFF, LAC #### [place] [id number] CBCon 04-19-2025 Erythrocyte distribution width (RBC) [Ratio] 14.2 % Normal 11.5-15.5 [facility] Comment on above: Performed By: #### C RP, ANEU, TROPHS, ESR, LIP, CBC, GFR, CK, MG, CMP, ADIFF, LAC #### [place] [address] Hematocrit (Bld) [Volume fraction] 38.3 % Normal 34.0-46.0 [facility] Comment on above: Performed By: #### C RP, ANEU, TROPHS, ESR, LIP, CBC, GFR, CK, MG, CMP, ADIFF, LAC #### [place] [address] Hgb 13.1 G/dL Normal 12.0-16.0 [facility] Comment on above: Performed By: #### C RP, ANEU, TROPHS, ESR, LIP, CBC, GFR, CK, MG, CMP, ADIFF, LAC #### [place] [address] MCH (RBC) [Entitic mass] 30.0 pg Normal 27.0-33.0 [facility] Comment on above: Performed By: #### C RP, ANEU, TROPHS, ESR, LIP, CBC, GFR, CK, MG, CMP, ADIFF, LAC #### [place] [id number] MCHC 34.1 G/dL Normal 32.0-36.0 [facility] Comment on above: Performed By: #### C RP, ANEU, TROPHS, ESR, LIP, CBC, GFR, CK, MG, CMP, ADIFF, LAC #### [place] [address] MCV (RBC) [Entitic vol] 88.2 fL Normal 80.0-99.0 [facility] Comment on above: Performed By: #### C RP, ANEU, TROPHS, ESR, LIP, CBC, GFR, CK, MG, CMP, ADIFF, LAC #### [place] [address] Platelet 292 10 3/mcL Normal 150-450 [facility] Comment on above: Performed By: #### C RP, ANEU, TROPHS, ESR, LIP, CBC, GFR, CK, MG, CMP, ADIFF, LAC #### [place] [address] Platelet mean volume (Bld) [Entitic vol] 9.9 fL Normal 6.6-10.5 [facility] Comment on above: Performed By: #### C RP, ANEU, TROPHS, ESR, LIP, CBC, GFR, CK, MG, CMP, ADIFF, LAC #### [place] [address] RBC 4.34 10 6/mcL Normal 4.10-5.30 [facility] Comment on above: Performed By: #### C RP, ANEU, TROPHS, ESR, LIP, CBC, GFR, CK, MG, CMP, ADIFF, LAC #### [place] [address] WBC 6.7 10 3/mcL Normal 4.5-10.8 [facility] Comment on above: Performed By: #### C RP, ANEU, TROPHS, ESR, LIP, CBC, GFR, CK, MG, CMP, ADIFF, LAC #### [place] [address] LABORATORYOrdered By: Leyla Michael on 04-19-2025 Glucose [Mass/Vol] 113 mg/dL High 70 - 110 mg/dL [facility] Work Phone: Glucose [Mass/Vol] 109 mg/dL Normal 70 - 110 mg/dL [facility] Work Phone: LABORATORYOrdered By: SYSTEM SYSTEM on 04-19-2025 Basophils (Bld) [#/Vol] 0.0 103/mcL Normal 0.0 - 0.3 10^3/mcL AH Workflow SS Basophils/100 WBC (Bld) 0.7 % Normal 0.0 - 2.5 % AH Workflow SS Calcium [Mass/Vol] 9.3 mg/dL Normal 8.7 - 10. 4 mg/dL ADM SS Chloride [Moles/Vol] 105 mmol/L Normal 98 - 11 0 mEq/L ADM SS CO2 [Moles/Vol] 26 mmol/L Normal 22 - 32 mEq/L ADM SS Creatinine [Mass/Vol] 0.87 mg/dL Normal 0.50 - 1.20 mg/dL ADM SS Comment on above: Interpretive Data: T esting performed on [employer] analyzer using enzymatic creatinine methodology. Electrolyte Balance 8.0 mEq/L Normal 4.0 - 15 .0 mEq/L ADM SS Eosinophils (Bld) [#/Vol] 0.2 103/mcL Normal 0.0 - 0.7 10^3/mcL Workflow SS Eosinophils/100 WBC (Bld) 2.9 % Normal 0.0 - 6.0 % Workflow SS Erythrocyte distribution width (RBC) [Ratio] 14.2 % Normal 11.5 - 15.5 % Workflow SS Estimated Glomerular Filtration Rate 80 ml/min/1.73sqm Invalid Interpretation Code Chemistry S Comment on above: Interpretive Data: Stages of Chronic Kidney Disease (CKD) Stage Description eGFR(ml/min/1.73 sq.m.) CKD 1 Normal kidney function or >=90 normal kindney function with possible kidney damage (ex. Proteinuria) CKD 2 Kidney damage with mild loss 60-89 of kidney function CKD 3a Mild to moderate loss of kidney 45-59 function CKD 3b Moderate to severe loss of 30-44 of kindey function CKD 4 Severe loss of kidney function 15-29 CKD 5 Kidney failure <15 Note: (go live 2024) the eGFR calculation was updated to the 2020 CKD-EPI creatinine equation without a race factor to calculate the eGFR results. Glucose [Mass/Vol] 110 mg/dL Normal 70 - 110 mg/dL ADM SS Hematocrit (Bld) [Volume fraction] 38.3 % Normal 34.0 - 46.0 % Workflow SS Hemoglobin (Bld) [Mass/Vol] 13.1 G/dL Normal 12.0 - 16.0 G/dL Workflow SS Lymphocytes (Bld) [#/Vol] 1.1 103/mcL Normal 0.9 - 4.3 10^3/mcL Workflow SS Lymphocytes/100 WBC (Bld) 16.1 % Low 20.0 - 40.0 % AH Workflow SS Magnesium [Mass/Vol] 1.9 mg/dL Normal 1.6 - 2 .4 mg/dL AH ADM SS MCH (RBC) [Entitic mass] 30.0 pg Normal 27.0 - 33.0 pg AH Workflow SS MCHC 34.1 G/dL Normal 32.0 - 36.0 G/dL AH Workflow SS MCV (RBC) [Entitic vol] 88.2 fL Normal 80.0 - 99.0 fL AH Workflow SS Monocytes (Bld) [#/Vol] 0.4 103/mcL Normal 0.1 - 1.4 10^3/mcL Workflow SS Monocytes/100 WBC (Bld) 6.5 % Normal 2.0 - 13.0 % AH Workflow SS Neutrophils (Bld) [#/Vol] 4.9 103/mcL Normal 2.3 - 8.1 10^3/mcL Workflow SS Neutrophils/100 WBC (Bld) 73.8 % Normal 50.0 - 75.0 % Workflow SS Platelet mean volume (Bld) [Entitic vol] 9.9 fL Normal 6.6 - 10.5 fL Workflow SS Platelets (Bld) [#/Vol] 292 103/mcL Normal 150 - 450 10^3/mcL AH Workflow SS Potassium [Moles/Vol] 4.0 mmol/L Normal 3.5 - 5.0 mEq/L AH ADM SS RBC (Bld) [#/Vol] 4.34 106/mcL Normal 4.10 - 5.3 0 10^6/mcL Workflow SS Sodium [Moles/Vol] 139 mmol/L Normal 136 - 145 mEq/L ADM SS Urea nitrogen [Mass/Vol] 7.0 mg/dL Low 8.0 - 22.0 mg/dL ADM SS Urea nitrogen/Creatinine [Mass ratio] 8.0 ratio Low 10.0 - 22.0 ratio ADM SS WBC (Bld) [#/Vol] 6.7 103/mcL Normal 4.5 - 10.8 10^3/mcL Workflow SS MGon 04-19-2025 Magnesium [Mass/Vol] 1.9 mg/dL Normal 1.6-2.4 [facility] Comment on above: Performed By: #### C RP, ANEU, TROPHS, ESR, LIP, CBC, GFR, CK, MG, CMP, ADIFF, LAC #### [address] [address] .Auto Diffon 04-18-2025 Basophil, Absolute 0.0 10 3/mcL Normal 0.0-0.3 [facility] Comment on above: Performed By: #### U A #### [address] [address] Basophils/100 WBC (Bld) 0.5 % Normal 0.0-2.5 [facility] Comment on above: Performed By: #### U A #### [address] [address] Eosinophil, Absolute 0.2 10 3/mcL Normal 0.0-0.7 [facility] Comment on above: Performed By: #### U A #### [address] [address] Eosinophils/100 WBC (Bld) 3.2 % Normal 0.0-6.0 [facility] Comment on above: Performed By: #### U A #### [address] [address] Lymphocyte, Absolute 1.3 10 3/mcL Normal 0.9-4.3 [facility] Comment on above: Performed By: #### U A #### [address] [address] Lymphocytes/100 WBC (Bld) 22.6 % Normal 20.0-40.0 [facility] Comment on above: Performed By: #### U A #### [address] [address] Monocyte, Absolute 0.4 10 3/mcL Normal 0.1-1.4 [facility] Comment on above: Performed By: #### U A #### [address] [address] Monocytes/100 WBC (Bld) 6.6 % Normal 2.0-13.0 [facility] Comment on above: Performed By: #### U A #### [address] [address] Neutrophils/100 WBC (Bld) 67.1 % Normal 50.0-75.0 [facility] Comment on above: Performed By: #### U A #### [address] [address] .GFRon 04-18-2025 Estimated Glomerular Filtration Rate 75 ml/min/1.73sqm Normal [facility] Comment on above: Result Comment: Stages of Chronic Kidney Disease (CKD) Stage Description eGFR(ml/min/1.73 sq.m.) CKD 1 Normal kidney function or >=90 normal kindney function with possible kidney damage (ex. Proteinuria) CKD 2 Kidney damage with mild loss 60-89 of kidney function CKD 3a Mild to moderate loss of kidney 45-59 function CKD 3b Moderate to severe loss of 30-44 of kindey function CKD 4 Severe loss of kidney function 15-29 CKD 5 Kidney failure <15 Note: (go live 2024) the eGFR calculation was updated to the 2020 CKD-EPI creatinine equation without a race factor to calculate the eGFR results. Performed By: #### U A #### [place] [address] .NEUABSon 04-18-2025 Neutrophil, Absolute 4.0 10 3/mcL Normal 2.3-8.1 [facility] Comment on above: Performed By: #### U A #### [place] [address] A1Con 04-18-2025 Glucose [Mass/Vol] 117 mg/dL Normal [facility] Comment on above: Result Comment: Lois mated Average Glucose calculated by equation ((28.7xA1C)-46.7) Estimated average glucose (eAG) is a calculated value from Hemoglobin A1C and is insurance follow up representative of the average blood glucose level in the last 2-3 month period. Normal range: less than 114 mg/dL Performed By: #### C RP, ANEU, TROPHS, ESR, LIP, CBC, GFR, CK, MG, CMP, ADIFF, LAC #### [address] [address] HbA1c (Bld) [Mass fraction] 5.7 % Normal 4.0-6.0 [facility] Comment on above: Performed By: #### C RP, ANEU, TROPHS, ESR, LIP, CBC, GFR, CK, MG, CMP, ADIFF, LAC #### [place] [address] CBCon 04-18-2025 Erythrocyte distribution width (RBC) [Ratio] 14.1 % Normal 11.5-15.5 [facility] Comment on above: Performed By: #### U A #### [place] [address] Hematocrit (Bld) [Volume fraction] 37.1 % Normal 34.0-46.0 [facility] Comment on above: Performed By: #### U A #### [place] [address] Hgb 12.7 G/dL Normal 12.0-16.0 [facility] Comment on above: Performed By: #### U A #### [place] [address] MCH (RBC) [Entitic mass] 30.2 pg Normal 27.0-33.0 [facility] Comment on above: Performed By: #### U A #### [place] [address] MCHC 34.1 G/dL Normal 32.0-36.0 [facility] Comment on above: Performed By: #### U A #### [place] [address] MCV (RBC) [Entitic vol] 88.6 fL Normal 80.0-99.0 [facility] Comment on above: Performed By: #### U A #### [place] [address] Platelet 264 10 3/mcL Normal 150-450 [facility] Comment on above: Performed By: #### U A #### [place] [id number] Platelet mean volume (Bld) [Entitic vol] 9.8 fL Normal 6.6-10.5 [facility] Comment on above: Performed By: #### U A #### [place] [address] RBC 4.19 10 6/mcL Normal 4.10-5.30 [facility] Comment on above: Performed By: #### U A #### [place] [id number] WBC 6.0 10 3/mcL Normal 4.5-10.8 [facility] Comment on above: Performed By: #### U A #### [place] [id number] CMPon 04-18-2025 Albumin Level 3.0 G/dL Low 3.2-4.8 [facility] Comment on above: Performed By: #### U A #### [place] [address] Albumin/Globulin [Mass ratio] 1.0 {ratio} Normal 0.9-1.6 [facility] Comment on above: Performed By: #### U A #### [place] [address] ALP [Catalytic activity/Vol] 59 U/L Normal 38-126 [facility] Comment on above: Performed By: #### U A #### [place] [address] ALT [Catalytic activity/Vol] 23 U/L Normal 10-49 [facility] Comment on above: Performed By: #### U A #### [place] [address] AST [Catalytic activity/Vol] 21 U/L Normal 8-34 [facility] Comment on above: Performed By: #### U A #### [place] [address] Bili Total 0.20 mg/dL Normal 0.20-1.20 [facility] Comment on above: Result Comment: Use of this assay is not recommended for patients undergoing treatment with eltrombopag due to the potential for falsely elevated results. Performed By: #### U A #### [place] [address] BUN/Creatinine Ratio 7.6 ratio Low 10.0-22.0 [facility] Comment on above: Performed By: #### U A #### [address] [address] Calcium [Mass/Vol] 8.9 mg/dL Normal 8.7-10.4 [facility] Comment on above: Performed By: #### U A #### [address] [address] Chloride [Moles/Vol] 107 mmol/L Normal 98-110 [facility] Comment on above: Performed By: #### U A #### [address] [address] CO2 [Moles/Vol] 25 mmol/L Normal 22-32 [facility] Comment on above: Performed By: #### U A #### [place] [id number] Creatinine [Mass/Vol] 0.92 mg/dL Normal 0.50-1.20 [facility] Comment on above: Result Comment: Test ing performed on [employer] analyzer using enzymatic creatinine methodology. Performed By: #### U A #### [address] [address] Electrolyte Balance 10.0 mEq/L Normal 4.0-15.0 [facility] Comment on above: Performed By: #### U A #### [address] [address] Globulin 2.9 G/dL Normal 2.5-4.2 [facility] Comment on above: Performed By: #### U A #### [address] [address] Glucose [Mass/Vol] 124 mg/dL High 70-110 [facility] Comment on above: Performed By: #### U A #### [address] [address] Potassium [Moles/Vol] 3.9 mmol/L Normal 3.5-5.0 [facility] Comment on above: Performed By: #### U A #### [place] [id number] Sodium [Moles/Vol] 142 mmol/L Normal 136-145 [facility] Comment on above: Performed By: #### U A #### [place] [id number] [place] [id number] Total Protein 5.9 G/dL Normal 5.7-8.2 [facility] Comment on above: Performed By: #### U A #### [facility] [address] [place] [address] Urea nitrogen [Mass/Vol] 7.0 mg/dL Low 8.0-22.0 [facility] Comment on above: Performed By: #### U A #### [address] [address] LABORATORYOrdered By: Kia Mcconnell on 04-18-2025 Glucose [Mass/Vol] 107 mg/dL Normal 70 - 110 mg/dL [facility] Work Phone: LABORATORYOrdered By: SYSTEM SYSTEM on 04-18-2025 Albumin BCP dye [Mass/Vol] 3.0 G/dL Low 3.2 - 4.8 G/dL ADM SS Albumin/Globulin [Mass ratio] 1.0 {ratio} Normal 0.9 - 1.6 ratio ADM SS ALP [Catalytic activity/Vol] 59 U/L Normal 38 - 126 U/L ADM SS ALT No additional P-5'-P [Catalytic activity/Vol] 23 U/L Normal 10 - 49 U/L ADM SS AST [Catalytic activity/Vol] 21 U/L Normal 8 - 34 U/L ADM SS Basophils (Bld) [#/Vol] 0.0 103/mcL Normal 0.0 - 0.3 10^3/mcL Workflow SS Basophils/100 WBC (Bld) 0.5 % Normal 0.0 - 2.5 % Workflow SS Bilirubin [Mass/Vol] 0.20 mg/dL Normal 0.20 - 1.20 mg/dL ADM SS Comment on above: Interpretive Data: U se of this assay is not recommended for patients undergoing treatment with eltrombopag due to the potential for falsely elevated results. Calcium [Mass/Vol] 8.9 mg/dL Normal 8.7 - 10. 4 mg/dL ADM SS Chloride [Moles/Vol] 107 mmol/L Normal 98 - 11 0 mEq/L ADM SS CO2 [Moles/Vol] 25 mmol/L Normal 22 - 32 mEq/L ADM SS Creatinine [Mass/Vol] 0.92 mg/dL Normal 0.50 - 1.20 mg/dL ADM SS Comment on above: Interpretive Data: T esting performed on [employer] analyzer using enzymatic creatinine methodology. Electrolyte Balance 10.0 mEq/L Normal 4.0 - 15 .0 mEq/L ADM SS Eosinophils (Bld) [#/Vol] 0.2 103/mcL Normal 0.0 - 0.7 10^3/mcL Workflow SS Eosinophils/100 WBC (Bld) 3.2 % Normal 0.0 - 6.0 % Workflow SS Erythrocyte distribution width (RBC) [Ratio] 14.1 % Normal 11.5 - 15.5 % Workflow SS Estimated Glomerular Filtration Rate 75 ml/min/1.73sqm Invalid Interpretation Code Chemistry S Comment on above: Interpretive Data: Stages of Chronic Kidney Disease (CKD) Stage Description eGFR(ml/min/1.73 sq.m.) CKD 1 Normal kidney function or >=90 normal kindney function with possible kidney damage (ex. Proteinuria) CKD 2 Kidney damage with mild loss 60-89 of kidney function CKD 3a Mild to moderate loss of kidney 45-59 function CKD 3b Moderate to severe loss of 30-44 of kindey function CKD 4 Severe loss of kidney function 15-29 CKD 5 Kidney failure <15 Note: (go live 2024) the eGFR calculation was updated to the 2020 CKD-EPI creatinine equation without a race factor to calculate the eGFR results. Globulin 2.9 G/dL Normal 2.5 - 4.2 G/dL ADM SS Glucose [Mass/Vol] 117 mg/dL Invalid Interpretation Code Auto Chem SS Comment on above: Interpretive Data: E stimated average glucose (eAG) is a calculated value from Hemoglobin A1C and is insurance follow up representative of the average blood glucose level in the last 2-3 month period. Normal range: less than 114 mg/dL Glucose [Mass/Vol] 124 mg/dL High 70 - 110 mg/dL ADM SS HbA1c (Bld) [Mass fraction] 5.7 % Normal 4.0 - 6.0 % Auto Chem SS Hematocrit (Bld) [Volume fraction] 37.1 % Normal 34.0 - 46.0 % Workflow SS Hemoglobin (Bld) [Mass/Vol] 12.7 G/dL Normal 12.0 - 16.0 G/dL AH Workflow SS Lymphocytes (Bld) [#/Vol] 1.3 103/mcL Normal 0.9 - 4.3 10^3/mcL AH Workflow SS Lymphocytes/100 WBC (Bld) 22.6 % Normal 20.0 - 40.0 % AH Workflow SS MCH (RBC) [Entitic mass] 30.2 pg Normal 27.0 - 33.0 pg AH Workflow SS MCHC 34.1 G/dL Normal 32.0 - 36.0 G/dL AH Workflow SS MCV (RBC) [Entitic vol] 88.6 fL Normal 80.0 - 99.0 fL AH Workflow SS Monocytes (Bld) [#/Vol] 0.4 103/mcL Normal 0.1 - 1.4 10^3/mcL AH Workflow SS Monocytes/100 WBC (Bld) 6.6 % Normal 2.0 - 13.0 % AH Workflow SS Neutrophils (Bld) [#/Vol] 4.0 103/mcL Normal 2.3 - 8.1 10^3/mcL AH Workflow SS Neutrophils/100 WBC (Bld) 67.1 % Normal 50.0 - 75.0 % AH Workflow SS Platelet mean volume (Bld) [Entitic vol] 9.8 fL Normal 6.6 - 10.5 fL AH Workflow SS Platelets (Bld) [#/Vol] 264 103/mcL Normal 150 - 450 10^3/mcL AH Workflow SS Potassium [Moles/Vol] 3.9 mmol/L Normal 3.5 - 5.0 mEq/L AH ADM SS Protein [Mass/Vol] 5.9 G/dL Normal 5.7 - 8.2 G/dL AH ADM SS RBC (Bld) [#/Vol] 4.19 106/mcL Normal 4.10 - 5.3 0 10^6/mcL AH Workflow SS Sodium [Moles/Vol] 142 mmol/L Normal 136 - 145 mEq/L AH ADM SS Urea nitrogen [Mass/Vol] 7.0 mg/dL Low 8.0 - 22.0 mg/dL AH ADM SS Urea nitrogen/Creatinine [Mass ratio] 7.6 ratio Low 10.0 - 22.0 ratio AH ADM SS WBC (Bld) [#/Vol] 6.0 103/mcL Normal 4.5 - 10.8 10^3/mcL AH Workflow SS .Auto Diffon 04-17-2025 Basophil, Absolute 0.1 10 3/mcL Normal 0.0-0.3 [facility] Comment on above: Performed By: #### C RP, ANEU, TROPHS, ESR, LIP, CBC, GFR, CK, MG, CMP, ADIFF, LAC #### [address] [address] Basophils/100 WBC (Bld) 1.0 % Normal 0.0-2.5 [facility] Comment on above: Performed By: #### C RP, ANEU, TROPHS, ESR, LIP, CBC, GFR, CK, MG, CMP, ADIFF, LAC #### [address] [address] Eosinophil, Absolute 0.2 10 3/mcL Normal 0.0-0.7 [facility] Comment on above: Performed By: #### C RP, ANEU, TROPHS, ESR, LIP, CBC, GFR, CK, MG, CMP, ADIFF, LAC #### [address] [address] Eosinophils/100 WBC (Bld) 3.6 % Normal 0.0-6.0 [facility] Comment on above: Performed By: #### C RP, ANEU, TROPHS, ESR, LIP, CBC, GFR, CK, MG, CMP, ADIFF, LAC #### [address] [address] Lymphocyte, Absolute 1.7 10 3/mcL Normal 0.9-4.3 [facility] Comment on above: Performed By: #### C RP, ANEU, TROPHS, ESR, LIP, CBC, GFR, CK, MG, CMP, ADIFF, LAC #### [address] [address] Lymphocytes/100 WBC (Bld) 28.2 % Normal 20.0-40.0 [facility] Comment on above: Performed By: #### C RP, ANEU, TROPHS, ESR, LIP, CBC, GFR, CK, MG, CMP, ADIFF, LAC #### [address] [address] Monocyte, Absolute 0.4 10 3/mcL Normal 0.1-1.4 [facility] Comment on above: Performed By: #### C RP, ANEU, TROPHS, ESR, LIP, CBC, GFR, CK, MG, CMP, ADIFF, LAC #### [address] [address] Monocytes/100 WBC (Bld) 7.0 % Normal 2.0-13.0 [facility] Comment on above: Performed By: #### C RP, ANEU, TROPHS, ESR, LIP, CBC, GFR, CK, MG, CMP, ADIFF, LAC #### [address] [address] Neutrophils/100 WBC (Bld) 60.2 % Normal 50.0-75.0 [facility] Comment on above: Performed By: #### C RP, ANEU, TROPHS, ESR, LIP, CBC, GFR, CK, MG, CMP, ADIFF, LAC #### [address] [address] Basophil, Absolute 0.0 10 3/mcL Normal 0.0-0.3 [facility] Comment on above: Performed By: #### M DW, CMP, ANEU, ADIFF, TROPHS, CBC, LAC, GFR, LIP, DDHS ####[address] [address] Basophils/100 WBC (Bld) 0.8 % Normal 0.0-2.5 [facility] Comment on above: Performed By: #### M DW, CMP, ANEU, ADIFF, TROPHS, CBC, LAC, GFR, LIP, DDHS ####[address] [address] Eosinophil, Absolute 0.2 10 3/mcL Normal 0.0-0.7 [facility] Comment on above: Performed By: #### M DW, CMP, ANEU, ADIFF, TROPHS, CBC, LAC, GFR, LIP, DDHS ####[address] [address] Eosinophils/100 WBC (Bld) 3.8 % Normal 0.0-6.0 [facility] Comment on above: Performed By: #### M DW, CMP, ANEU, ADIFF, TROPHS, CBC, LAC, GFR, LIP, DDHS ####[address] [address] Lymphocyte, Absolute 1.8 10 3/mcL Normal 0.9-4.3 [facility] Comment on above: Performed By: #### M DW, CMP, ANEU, ADIFF, TROPHS, CBC, LAC, GFR, LIP, DDHS ####[address] [address] Lymphocytes/100 WBC (Bld) 30.4 % Normal 20.0-40.0 [facility] Comment on above: Performed By: #### M DW, CMP, ANEU, ADIFF, TROPHS, CBC, LAC, GFR, LIP, DDHS ####[address] [address] Monocyte, Absolute 0.4 10 3/mcL Normal 0.1-1.4 [facility] Comment on above: Performed By: #### M DW, CMP, ANEU, ADIFF, TROPHS, CBC, LAC, GFR, LIP, DDHS ####[address] [address] Monocytes/100 WBC (Bld) 7.0 % Normal 2.0-13.0 [facility] Comment on above: Performed By: #### M DW, CMP, ANEU, ADIFF, TROPHS, CBC, LAC, GFR, LIP, DDHS ####[address] [address] Neutrophils/100 WBC (Bld) 58.0 % Normal 50.0-75.0 [facility] Comment on above: Performed By: #### M DW, CMP, ANEU, ADIFF, TROPHS, CBC, LAC, GFR, LIP, DDHS ####[address] [address] .GFRon 04-17-2025 Estimated Glomerular Filtration Rate 79 ml/min/1.73sqm Normal [facility] Comment on above: Result Comment: Stages of Chronic Kidney Disease (CKD) Stage Description eGFR(ml/min/1.73 sq.m.) CKD 1 Normal kidney function or >=90 normal kindney function with possible kidney damage (ex. Proteinuria) CKD 2 Kidney damage with mild loss 60-89 of kidney function CKD 3a Mild to moderate loss of kidney 45-59 function CKD 3b Moderate to severe loss of 30-44 of kindey function CKD 4 Severe loss of kidney function 15-29 CKD 5 Kidney failure <15 Note: ( live 11/22/2024) the eGFR calculation was updated to the 2020 CKD-EPI creatinine equation without a race factor to calculate the eGFR results. Performed By: #### C RP, ANEU, TROPHS, ESR, LIP, CBC, GFR, CK, MG, CMP, ADIFF, LAC ####[place] [address] Estimated Glomerular Filtration Rate 76 ml/min/1.73sqm Normal [facility] Comment on above: Result Comment: Stages of Chronic Kidney Disease (CKD) Stage Description eGFR(ml/min/1.73 sq.m.) CKD 1 Normal kidney function or >=90 normal kindney function with possible kidney damage (ex. Proteinuria) CKD 2 Kidney damage with mild loss 60-89 of kidney function CKD 3a Mild to moderate loss of kidney 45-59 function CKD 3b Moderate to severe loss of 30-44 of kindey function CKD 4 Severe loss of kidney function 15-29 CKD 5 Kidney failure <15 Note: ( live 11/22/2024) the eGFR calculation was updated to the 2020 CKD-EPI creatinine equation without a race factor to calculate the eGFR results. Performed By: #### U A #### [address] [address] .MDWon 04-17-2025 Monocyte Distribution Width 19.98 Normal 0.00-20.00 [facility] Comment on above: Result Comment: For ED adult patients suspected of sepsis, MDW<=20.0 does not rule out sepsis or risk of sepsis Performed By: #### M DW, CMP, ANEU, ADIFF, TROPHS, CBC, LAC, GFR, LIP, DDHS ####[address] [address] .NEUABSon 04-17-2025 Neutrophil, Absolute 3.7 10 3/mcL Normal 2.3-8.1 [facility] Comment on above: Performed By: #### C RP, ANEU, TROPHS, ESR, LIP, CBC, GFR, CK, MG, CMP, ADIFF, LAC #### [place] [address] Neutrophil, Absolute 3.4 10 3/mcL Normal 2.3-8.1 [facility] Comment on above: Performed By: #### M DW, CMP, ANEU, ADIFF, TROPHS, CBC, LAC, GFR, LIP, DDHS ####[place] [address] CBCon 04-17-2025 Erythrocyte distribution width (RBC) [Ratio] 14.3 % Normal 11.5-15.5 [facility] Comment on above: Performed By: #### C RP, ANEU, TROPHS, ESR, LIP, CBC, GFR, CK, MG, CMP, ADIFF, LAC #### [place] [address] Hematocrit (Bld) [Volume fraction] 34.8 % Normal 34.0-46.0 [facility] Comment on above: Performed By: #### C RP, ANEU, TROPHS, ESR, LIP, CBC, GFR, CK, MG, CMP, ADIFF, LAC #### [place] [address] Hgb 12.1 G/dL Normal 12.0-16.0 [facility] Comment on above: Performed By: #### C RP, ANEU, TROPHS, ESR, LIP, CBC, GFR, CK, MG, CMP, ADIFF, LAC #### [place] [address] MCH (RBC) [Entitic mass] 30.5 pg Normal 27.0-33.0 [facility] Comment on above: Performed By: #### C RP, ANEU, TROPHS, ESR, LIP, CBC, GFR, CK, MG, CMP, ADIFF, LAC #### [place] [address] MCHC 34.6 G/dL Normal 32.0-36.0 [facility] Comment on above: Performed By: #### C RP, ANEU, TROPHS, ESR, LIP, CBC, GFR, CK, MG, CMP, ADIFF, LAC #### [place] [address] MCV (RBC) [Entitic vol] 88.1 fL Normal 80.0-99.0 [facility] Comment on above: Performed By: #### C RP, ANEU, TROPHS, ESR, LIP, CBC, GFR, CK, MG, CMP, ADIFF, LAC #### [place] [address] Platelet 275 10 3/mcL Normal 150-450 [facility] Comment on above: Performed By: #### C RP, ANEU, TROPHS, ESR, LIP, CBC, GFR, CK, MG, CMP, ADIFF, LAC #### [place] [address] Platelet mean volume (Bld) [Entitic vol] 9.5 fL Normal 6.6-10.5 [facility] Comment on above: Performed By: #### C RP, ANEU, TROPHS, ESR, LIP, CBC, GFR, CK, MG, CMP, ADIFF, LAC #### [place] [address] RBC 3.96 10 6/mcL Low 4.10-5.30 [facility] Comment on above: Performed By: #### C RP, ANEU, TROPHS, ESR, LIP, CBC, GFR, CK, MG, CMP, ADIFF, LAC #### [place] [address] WBC 6.1 10 3/mcL Normal 4.5-10.8 [facility] Comment on above: Performed By: #### C RP, ANEU, TROPHS, ESR, LIP, CBC, GFR, CK, MG, CMP, ADIFF, LAC #### [place] [address] Erythrocyte distribution width (RBC) [Ratio] 13.8 % Normal 11.5-15.5 [facility] Comment on above: Performed By: #### M DW, CMP, ANEU, ADIFF, TROPHS, CBC, LAC, GFR, LIP, DDHS ####[place] [address] Hematocrit (Bld) [Volume fraction] 36.9 % Normal 34.0-46.0 [facility] Comment on above: Performed By: #### M DW, CMP, ANEU, ADIFF, TROPHS, CBC, LAC, GFR, LIP, DDHS ####[place] [address] Hgb 12.8 G/dL Normal 12.0-16.0 [facility] Comment on above: Performed By: #### M DW, CMP, ANEU, ADIFF, TROPHS, CBC, LAC, GFR, LIP, DDHS ####[place] [address] MCH (RBC) [Entitic mass] 30.4 pg Normal 27.0-33.0 [facility] Comment on above: Performed By: #### M DW, CMP, ANEU, ADIFF, TROPHS, CBC, LAC, GFR, LIP, DDHS ####[place] [address] MCHC 34.6 G/dL Normal 32.0-36.0 [facility] Comment on above: Performed By: #### M DW, CMP, ANEU, ADIFF, TROPHS, CBC, LAC, GFR, LIP, DDHS ####[place] [address] MCV (RBC) [Entitic vol] 87.7 fL Normal 80.0-99.0 [facility] Comment on above: Performed By: #### M DW, CMP, ANEU, ADIFF, TROPHS, CBC, LAC, GFR, LIP, DDHS ####[place] [address] Platelet 295 10 3/mcL Normal 150-450 [facility] Comment on above: Performed By: #### M DW, CMP, ANEU, ADIFF, TROPHS, CBC, LAC, GFR, LIP, DDHS ####[place] [address] Platelet mean volume (Bld) [Entitic vol] 9.7 fL Normal 6.6-10.5 [facility] Comment on above: Performed By: #### M DW, CMP, ANEU, ADIFF, TROPHS, CBC, LAC, GFR, LIP, DDHS ####[place] [address] RBC 4.20 10 6/mcL Normal 4.10-5.30 [facility] Comment on above: Performed By: #### M DW, CMP, ANEU, ADIFF, TROPHS, CBC, LAC, GFR, LIP, DDHS ####[place] [address] WBC 5.9 10 3/mcL Normal 4.5-10.8 [facility] Comment on above: Performed By: #### M DW, CMP, ANEU, ADIFF, TROPHS, CBC, LAC, GFR, LIP, DDHS ####[place] [address] CKon 04-17-2025 CK [Catalytic activity/Vol] 60 U/L Normal 7-185 [facility] Comment on above: Performed By: #### C RP, ANEU, TROPHS, ESR, LIP, CBC, GFR, CK, MG, CMP, ADIFF, LAC ####[place] [address] CMPon 04-17-2025 Albumin Level 3.0 G/dL Low 3.2-4.8 [facility] Comment on above: Performed By: #### C RP, ANEU, TROPHS, ESR, LIP, CBC, GFR, CK, MG, CMP, ADIFF, LAC ####[place] [address] Albumin/Globulin [Mass ratio] 1.0 {ratio} Normal 0.9-1.6 [facility] Comment on above: Performed By: #### C RP, ANEU, TROPHS, ESR, LIP, CBC, GFR, CK, MG, CMP, ADIFF, LAC ####[place] [address] ALP [Catalytic activity/Vol] 57 U/L Normal 38-126 [facility] Comment on above: Performed By: #### C RP, ANEU, TROPHS, ESR, LIP, CBC, GFR, CK, MG, CMP, ADIFF, LAC ####[place] [address] ALT [Catalytic activity/Vol] 14 U/L Normal 10-49 [facility] Comment on above: Performed By: #### C RP, ANEU, TROPHS, ESR, LIP, CBC, GFR, CK, MG, CMP, ADIFF, LAC ####[place] [address] AST [Catalytic activity/Vol] 18 U/L Normal 8-34 [facility] Comment on above: Performed By: #### C RP, ANEU, TROPHS, ESR, LIP, CBC, GFR, CK, MG, CMP, ADIFF, LAC ####[place] [address] Bili Total <0.20 Normal 0.20-1.20 [facility] Comment on above: Result Comment: Use of this assay is not recommended for patients undergoing treatment with eltrombopag due to the potential for falsely elevated results. Performed By: #### C RP, ANEU, TROPHS, ESR, LIP, CBC, GFR, CK, MG, CMP, ADIFF, LAC ####[place] [address] BUN/Creatinine Ratio 14.8 ratio Normal 10.0-22.0 [facility] Comment on above: Performed By: #### C RP, ANEU, TROPHS, ESR, LIP, CBC, GFR, CK, MG, CMP, ADIFF, LAC ####[place] [address] Calcium [Mass/Vol] 9.1 mg/dL Normal 8.7-10.4 [facility] Comment on above: Performed By: #### C RP, ANEU, TROPHS, ESR, LIP, CBC, GFR, CK, MG, CMP, ADIFF, LAC ####[place] [address] Chloride [Moles/Vol] 103 mmol/L Normal 98-110 [facility] Comment on above: Performed By: #### C RP, ANEU, TROPHS, ESR, LIP, CBC, GFR, CK, MG, CMP, ADIFF, LAC ####[place] [id number] CO2 [Moles/Vol] 23 mmol/L Normal 22-32 [facility] Comment on above: Performed By: #### C RP, ANEU, TROPHS, ESR, LIP, CBC, GFR, CK, MG, CMP, ADIFF, LAC ####[place] [address] Creatinine [Mass/Vol] 0.88 mg/dL Normal 0.50-1.20 [facility] Comment on above: Result Comment: Test ing performed on [employer] analyzer using enzymatic creatinine methodology. Performed By: #### C RP, ANEU, TROPHS, ESR, LIP, CBC, GFR, CK, MG, CMP, ADIFF, LAC ####[place] [address] Electrolyte Balance 13.0 mEq/L Normal 4.0-15.0 [facility] Comment on above: Performed By: #### C RP, ANEU, TROPHS, ESR, LIP, CBC, GFR, CK, MG, CMP, ADIFF, LAC ####[place] [address] Globulin 3.0 G/dL Normal 2.5-4.2 [facility] Comment on above: Performed By: #### C RP, ANEU, TROPHS, ESR, LIP, CBC, GFR, CK, MG, CMP, ADIFF, LAC ####[place] [id number] Glucose [Mass/Vol] 107 mg/dL Normal 70-110 [facility] Comment on above: Performed By: #### C RP, ANEU, TROPHS, ESR, LIP, CBC, GFR, CK, MG, CMP, ADIFF, LAC ####[place] [id number] Potassium [Moles/Vol] 3.9 mmol/L Normal 3.5-5.0 [facility] Comment on above: Performed By: #### C RP, ANEU, TROPHS, ESR, LIP, CBC, GFR, CK, MG, CMP, ADIFF, LAC ####[place] [id number] Sodium [Moles/Vol] 139 mmol/L Normal 136-145 [facility] Comment on above: Performed By: #### C RP, ANEU, TROPHS, ESR, LIP, CBC, GFR, CK, MG, CMP, ADIFF, LAC ####[place] [id number] Total Protein 6.0 G/dL Normal 5.7-8.2 [facility] Comment on above: Performed By: #### C RP, ANEU, TROPHS, ESR, LIP, CBC, GFR, CK, MG, CMP, ADIFF, LAC ####[address] [address] Urea nitrogen [Mass/Vol] 13.0 mg/dL Normal 8.0-22.0 [facility] Comment on above: Performed By: #### C RP, ANEU, TROPHS, ESR, LIP, CBC, GFR, CK, MG, CMP, ADIFF, LAC ####[place] [id number] Albumin Level 3.3 G/dL Normal 3.2-4.8 [facility] Comment on above: Performed By: #### U A #### [place] [id number] Albumin/Globulin [Mass ratio] 1.0 {ratio} Normal 0.9-1.6 [facility] Comment on above: Performed By: #### U A #### [address] [address] ALP [Catalytic activity/Vol] 62 U/L Normal 38-126 [facility] Comment on above: Performed By: #### U A #### [address] [address] ALT [Catalytic activity/Vol] 16 U/L Normal 10-49 [facility] Comment on above: Performed By: #### U A #### [address] [address] AST [Catalytic activity/Vol] 20 U/L Normal 8-34 [facility] Comment on above: Performed By: #### U A #### [place] [id number] Bili Total <0.20 Normal 0.20-1.20 [facility] Comment on above: Result Comment: Use of this assay is not recommended for patients undergoing treatment with eltrombopag due to the potential for falsely elevated results. Performed By: #### U A #### [place] [id number] BUN/Creatinine Ratio 12.1 ratio Normal 10.0-22.0 [facility] Comment on above: Performed By: #### U A #### [place] [id number] Calcium [Mass/Vol] 9.5 mg/dL Normal 8.7-10.4 [facility] Comment on above: Performed By: #### U A #### [place] [id number] Chloride [Moles/Vol] 103 mmol/L Normal 98-110 [facility] Comment on above: Performed By: #### U A #### [place] [id number] CO2 [Moles/Vol] 24 mmol/L Normal 22-32 [facility] Comment on above: Performed By: #### U A #### [place] [id number] Creatinine [Mass/Vol] 0.91 mg/dL Normal 0.50-1.20 [facility] Comment on above: Result Comment: Test ing performed on [employer] analyzer using enzymatic creatinine methodology. Performed By: #### U A #### [place] [id number] Electrolyte Balance 11.0 mEq/L Normal 4.0-15.0 [facility] Comment on above: Performed By: #### U A #### [place] [id number] Globulin 3.3 G/dL Normal 2.5-4.2 [facility] Comment on above: Performed By: #### U A #### [place] [id number] Glucose [Mass/Vol] 121 mg/dL High 70-110 [facility] Comment on above: Performed By: #### U A #### [address] [address] Potassium [Moles/Vol] 3.6 mmol/L Normal 3.5-5.0 [facility] Comment on above: Performed By: #### U A #### [place] [id number] Sodium [Moles/Vol] 138 mmol/L Normal 136-145 [facility] Comment on above: Performed By: #### U A #### [place] [id number] Total Protein 6.6 G/dL Normal 5.7-8.2 [facility] Comment on above: Performed By: #### U A #### [place] [id number] Urea nitrogen [Mass/Vol] 11.0 mg/dL Normal 8.0-22.0 [facility] Comment on above: Performed By: #### U A #### [place] [address] CRPon 04-17-2025 C-Reactive Protein 1.3 mg/dL High 0.0-1.0 [facility] Comment on above: Performed By: #### C RP, ANEU, TROPHS, ESR, LIP, CBC, GFR, CK, MG, CMP, ADIFF, LAC #### [place] [id number] CT ABDOMEN/PELVIS W/ORAL CON TRAST ONLYon 04-17-2025 CT ABDOMEN/PELVIS W/ORAL CONTRAST ONLY ORIGINAL EXAMINATION: CT OF THE ABDOMEN AND PELVIS WITHOUT CONTRAST 04/17/2025 6:02 pm TECHNIQUE: CT of the abdomen and pelvis was performed without the administration of intravenous contrast. Multiplanar reformatted images are provided for review. Automated exposure control, iterative reconstruction, and/or weight based adjustment of the mA/kV was utilized to reduce the radiation dose to as low as reasonably achievable. COMPARISON: CT abdomen pelvis April 15, 2025 HISTORY: ORDERING SYSTEM PROVIDED HISTORY: Reason for Exam: Abdominal pain, acute, nonlocalized, PT C/O RLQ STABBING PAIN FINDINGS: Lower Chest: Bibasilar atelectatic changes. Trace bilateral pleural fluid. Organs: Suggested mild wall thickening of the right ureter. Otherwise no significant change from prior exam. GI/Bowel: No bowel obstruction, pneumoperitoneum, or ascites. Unremarkable appendix. Pelvis: No acute findings. Peritoneum/Retroperitone um: Nonaneurysmal abdominal aorta. No enlarged lymph nodes. Bones/Soft Tissues: No acute osseous abnormality. IMPRESSION: Suggested mild wall thickening of the right ureter; correlate with urinalysis for possible ascending urinary tract infection. Otherwise no significant change from prior exam. Interpreted by: Lawson Desai Preliminary Report By: Lawson Desai Electronically signed By Lawson Desai Dictated Date: 04/17/2025 6:27:32 PM Prelim Date: 04/17/2025 6:33:42 PM Sign Date: 04/17/2025 6:33:42 PM Ordering Provider: JEY RODAS Interpreted by: Lawson Desai Preliminary Report By: Lawson Desai Electronically signed By Lawson Desai Dictated Date: 04/17/2025 6:27:32 PM Prelim Date: 04/17/2025 6:33:42 PM Sign Date: 04/17/2025 6:33:42 PM Ordering Provider: JEY RODAS Normal [facility] D-Dimer HS <200 Normal 0-230 [facility] Comment on above: Result Comment: Spec imen hemolyzed. Results may be affected. Pre-analytical evaluation of the specimen suggests possible interference due to lipemia. Results should be interpreted with caution. DDN: Results reported in D-DU ng/mL. Negative for D-dimer. DVT/PE is highly unlikely. Note: False negative results may be seen in patients on anticoagulant therapy. The result of the D-Dimer test should be evaluated in the context of all the clinical and laboratory data available. In those instances where the laboratory result does not agree with the clinical evaluation, additional tests should be performed accordingly. If the D-Dimer result is used to exclude DVT or PE, the recommended cutoff value is less than 230 ng/mL. The D-Dimer result should not be used alone to rule in DVT/PE, but should be used in conjunction with a clinical pretest probability (PTP)assessment model to exclude venous thromboembolism (VTE) in patients suspected of deep venous thrombosis (DVT) and pulmonary embolism (PE). Performed By: #### U A #### [facility] [address] [place] [address] ESRon 04-17-2025 Erythrocyte Sed Rate 9 mm/hr Normal 0-30 [facility] Comment on above: Performed By: #### C RP, ANEU, TROPHS, ESR, LIP, CBC, GFR, CK, MG, CMP, ADIFF, LAC ####[place] [id number] [place] [address] LABORATORYOrdered By: SYSTEM SYSTEM on 04-17-2025 Albumin BCP dye [Mass/Vol] 3.0 G/dL Low 3.2 - 4.8 G/dL ADM SS Albumin/Globulin [Mass ratio] 1.0 {ratio} Normal 0.9 - 1.6 ratio AH ADM SS ALP [Catalytic activity/Vol] 57 U/L Normal 38 - 126 U/L ADM SS ALT No additional P-5'-P [Catalytic activity/Vol] 14 U/L Normal 10 - 49 U/L ADM SS AST [Catalytic activity/Vol] 18 U/L Normal 8 - 34 U/L ADM SS Basophils (Bld) [#/Vol] 0.1 103/mcL Normal 0.0 - 0.3 10^3/mcL AH Workflow SS Basophils/100 WBC (Bld) 1.0 % Normal 0.0 - 2.5 % AH Workflow SS Bilirubin [Mass/Vol] mg/dL Normal 0.20 - 1.20 mg/dL AH ADM SS Comment on above: Interpretive Data: U se of this assay is not recommended for patients undergoing treatment with eltrombopag due to the potential for falsely elevated results. Calcium [Mass/Vol] 9.1 mg/dL Normal 8.7 - 10. 4 mg/dL AH ADM SS Chloride [Moles/Vol] 103 mmol/L Normal 98 - 11 0 mEq/L AH ADM SS CK [Catalytic activity/Vol] 60 U/L Normal 7 - 185 U/L AH ADM SS CO2 [Moles/Vol] 23 mmol/L Normal 22 - 32 mEq/L AH ADM SS Creatinine [Mass/Vol] 0.88 mg/dL Normal 0.50 - 1.20 mg/dL ADM SS Comment on above: Interpretive Data: T esting performed on [employer] analyzer using enzymatic creatinine methodology. CRP [Mass/Vol] 1.3 mg/dL High 0.0 - 1.0 mg/dL ADM SS Electrolyte Balance 13.0 mEq/L Normal 4.0 - 15 .0 mEq/L ADM SS Eosinophils (Bld) [#/Vol] 0.2 103/mcL Normal 0.0 - 0.7 10^3/mcL Workflow SS Eosinophils/100 WBC (Bld) 3.6 % Normal 0.0 - 6.0 % Workflow SS Erythrocyte distribution width (RBC) [Ratio] 14.3 % Normal 11.5 - 15.5 % Workflow SS Estimated Glomerular Filtration Rate 79 ml/min/1.73sqm Invalid Interpretation Code Chemistry S Comment on above: Interpretive Data: Stages of Chronic Kidney Disease (CKD) Stage Description eGFR(ml/min/1.73 sq.m.) CKD 1 Normal kidney function or >=90 normal kindney function with possible kidney damage (ex. Proteinuria) CKD 2 Kidney damage with mild loss 60-89 of kidney function CKD 3a Mild to moderate loss of kidney 45-59 function CKD 3b Moderate to severe loss of 30-44 of kindey function CKD 4 Severe loss of kidney function 15-29 CKD 5 Kidney failure <15 Note: (go live 2024) the eGFR calculation was updated to the 2020 CKD-EPI creatinine equation without a race factor to calculate the eGFR results. Globulin 3.0 G/dL Normal 2.5 - 4.2 G/dL ADM SS Glucose [Mass/Vol] 107 mg/dL Normal 70 - 110 mg/dL ADM SS Hematocrit (Bld) [Volume fraction] 34.8 % Normal 34.0 - 46.0 % Workflow SS Hemoglobin (Bld) [Mass/Vol] 12.1 G/dL Normal 12.0 - 16.0 G/dL Workflow SS Lactate [Moles/Vol] 1.1 mmol/L Normal 0.5 - 2. 2 mmol/L ADM SS Lipase [Catalytic activity/Vol] 30 U/L Normal 12 - 53 U/L ADM SS Lymphocytes (Bld) [#/Vol] 1.7 103/mcL Normal 0.9 - 4.3 10^3/mcL Workflow SS Lymphocytes/100 WBC (Bld) 28.2 % Normal 20.0 - 40.0 % Workflow SS Magnesium [Mass/Vol] 1.9 mg/dL Normal 1.6 - 2 .4 mg/dL ADM SS MCH (RBC) [Entitic mass] 30.5 pg Normal 27.0 - 33.0 pg Workflow SS MCHC 34.6 G/dL Normal 32.0 - 36.0 G/dL Workflow SS MCV (RBC) [Entitic vol] 88.1 fL Normal 80.0 - 99.0 fL Workflow SS Monocytes (Bld) [#/Vol] 0.4 103/mcL Normal 0.1 - 1.4 10^3/mcL Workflow SS Monocytes/100 WBC (Bld) 7.0 % Normal 2.0 - 13.0 % Workflow SS Neutrophils (Bld) [#/Vol] 3.7 103/mcL Normal 2.3 - 8.1 10^3/mcL Workflow SS Neutrophils/100 WBC (Bld) 60.2 % Normal 50.0 - 75.0 % Workflow SS Platelet mean volume (Bld) [Entitic vol] 9.5 fL Normal 6.6 - 10.5 fL Workflow SS Platelets (Bld) [#/Vol] 275 103/mcL Normal 150 - 450 10^3/mcL Workflow SS Potassium [Moles/Vol] 3.9 mmol/L Normal 3.5 - 5.0 mEq/L ADM SS Protein [Mass/Vol] 6.0 G/dL Normal 5.7 - 8.2 G/dL ADM SS RBC (Bld) [#/Vol] 3.96 106/mcL Low 4.10 - 5.3 0 10^6/mcL Workflow SS Sodium [Moles/Vol] 139 mmol/L Normal 136 - 145 mEq/L ADM SS Troponin I.cardiac DL <= 0.01 ng/mL [Mass/Vol] ng/L Normal 0 - 34 ng/L ADM SS Comment on above: Interpretive Data: High Sensitive Troponin I Reference Ranges: Female: 0-34 ng/L Male: 0-54 ng/L Testing performed on [employer] analyzer using direct chemiluminescent technology. Urea nitrogen [Mass/Vol] 13.0 mg/dL Normal 8.0 - 22.0 mg/dL ADM SS Urea nitrogen/Creatinine [Mass ratio] 14.8 ratio Normal 10.0 - 22.0 ratio ADM SS WBC (Bld) [#/Vol] 6.1 103/mcL Normal 4.5 - 10.8 10^3/mcL AH Workflow SS LABORATORYOrdered By: Loretta Hernandez on 04-17-2025 ESR 15 minute reading (Bld) [Velocity] 9 mm/hr Normal 0 - 30 mm/hr AH Auto Heme SS LABORATORYOrdered By: Ronen Sigala on 04-17-2025 Appearance (U) Clear (04/17/25 12:10 AM) Normal Clear AH Auto Urine SS Bilirubin Ql (U) Negative (04/17/25 12:10 AM) Normal Neg-Trace AH Auto Urine SS Color (U) Yellow (04/17/25 12:10 AM) Normal AH Auto Urine SS Glucose Test strip (U) [Mass/Vol] Negative Normal Negative AH Auto Urine SS Hemoglobin Auto test strip (U) [Mass/Vol] Negative (04/17/25 12:10 AM) Normal Neg-Trace AH Auto Urine SS Ketones Ql (U) Negative Normal Neg-Trace AH Auto Urine SS UA Leuk Est Negative (04/17/25 12:10 AM) Normal Negative AH Auto Urine SS UA Nitrite Negative (04/17/25 12:10 AM) Normal Negative AH Auto Urine SS UA pH 5.5 (04/17/25 12:10 AM) Normal 5.0 - 8.0 AH Auto Urine SS UA Protein Negative Normal Negative AH Auto Urine SS UA Spec Grav 1.020 (04/17/25 12:10 AM) Normal 1.006-1.029 AH Auto Urine SS UA Specimen Type Clean Catch (04/17/25 12:10 AM) Normal Auto Urine SS UA Urobilinogen 0.2 E.U./dL Normal 0.2-1.0 AH Auto Urine SS LACon 04-17-2025 Lactic Acid Lvl 1.1 mmol/L Normal 0.5-2.2 [facility] Comment on above: Performed By: #### C RP, ANEU, TROPHS, ESR, LIP, CBC, GFR, CK, MG, CMP, ADIFF, LAC #### [facility] [address] [place] [address] Lactic Acid Lvl 1.8 mmol/L Normal 0.5-2.2 [facility] Comment on above: Performed By: #### U A #### [place] [address] LIPon 04-17-2025 Lipase Level 30 U/L Normal -[address] [place] [address] MAIN Comment on above: Performed By: #### C RP, ANEU, TROPHS, ESR, LIP, CBC, GFR, CK, MG, CMP, ADIFF, LAC #### [place] [address] Lipase Level 32 U/L Normal -[address] [place] [address] MAIN Comment on above: Performed By: #### U A #### [place] [address] MGon 04-17-2025 Magnesium [Mass/Vol] 1.9 mg/dL Normal 1.6-2.4 [facility] Comment on above: Performed By: #### C RP, ANEU, TROPHS, ESR, LIP, CBC, GFR, CK, MG, CMP, ADIFF, LAC ####[place] [address] TROPHSon 04-17-2025 High Sensitivity Troponin I <[address] [place] [address] MAIN Comment on above: Result Comment: High Sensitive Troponin I Reference Ranges: Female: 0-34 ng/L Male: 0-54 ng/L Testing performed on [employer] analyzer using direct chemiluminescent technology. Performed By: #### C RP, ANEU, TROPHS, ESR, LIP, CBC, GFR, CK, MG, CMP, ADIFF, LAC #### [place] [address] High Sensitivity Troponin I <[address] [place] [address] MAIN Comment on above: Result Comment: High Sensitive Troponin I Reference Ranges: Female: 0-34 ng/L Male: 0-54 ng/L Testing performed on [employer] IM analyzer using direct chemiluminescent technology. Performed By: #### M DW, CMP, ANEU, ADIFF, TROPHS, CBC, LAC, GFR, LIP, DDHS ####[place] [address] UAon 04-17-2025 Color (U) Yellow Normal [facility] Comment on above: Performed By: #### U A #### [place] [address] Glucose (U) [Mass/Vol] Negative Normal Negative [facility] Comment on above: Performed By: #### U A #### [place] [address] Ketones Ql (U) Negative Normal Neg-Trace [facility] Comment on above: Performed By: #### U A #### [place] [address] UA Appear Clear Normal Clear [facility] Comment on above: Performed By: #### U A #### [place] [address] UA Blood Negative Normal Neg-Trace [facility] Comment on above: Performed By: #### U A #### [place] [address] UA Leuk Est Negative Normal Negative [facility] Comment on above: Performed By: #### U A #### [place] [address] UA Nitrite Negative Normal Negative [facility] Comment on above: Performed By: #### U A #### [place] [address] UA pH 5.5 Normal 5.0 - 8.0 [facility] Comment on above: Performed By: #### U A #### [place] [address] UA Protein Negative Normal Negative [facility] Comment on above: Performed By: #### U A #### [place] [address] UA Spec Grav 1.020 Normal 1.006-1.029 [facility] Comment on above: Performed By: #### U A #### [place] [address] UA Specimen Type Clean Catch Normal [facility] Comment on above: Performed By: #### U A #### [place] [address] UA Urobilinogen 0.2 E.U./dL Normal 0.2-1.0 [facility] Comment on above: Performed By: #### U A #### [facility] [address] [place] [address] Urobilinogen (U) [Mass/Vol] Negative Normal Neg-Trace [facility] Comment on above: Performed By: #### U A #### [address] [address] US ABDOMEN LIMITEDon 025 US ABDOMEN LIMITED ORIGINAL EXAMINATION: RIGHT UPPER QUADRANT ULTRASOUND 04/17/2025 2:49 am COMPARISON: CT abdomen and pelvis on 04/15/2025 HISTORY: ORDERING SYSTEM PROVIDED HISTORY: Reason for Exam: RUQ pain Permanently stored images were reviewed FINDINGS: LIVER: The liver is normal in size with long axis of 16 cm. The liver demonstrates normal echogenicity without evidence of intrahepatic biliary ductal dilatation. BILIARY SYSTEM: Gallbladder is normal in size. There are no gallstones. Gallbladder wall is at the upper limits of normal. There is no pericholecystic fluid. Mosqueda sign is unreliable due to prior medication administration. Common bile duct is mildly dilated measuring 8 mm.. RIGHT KIDNEY: Right kidney measures 11.7 x 4.2 x 3.9 cm. Renal cortex has normal thickness and echogenicity. There is no hydronephrosis. Nonobstructing right renal calculus is present. There is no perinephric abnormality. PANCREAS: Visualized portions of the pancreas are unremarkable. OTHER: No evidence of right upper quadrant ascites. IMPRESSION: 1. No gallstones. Gallbladder wall is at the upper limits of normal. 2. Common bile duct is mildly dilated measuring 8 mm. 3. Nonobstructing right renal calculus. Interpreted by: Marquis Wesley MD Preliminary Report By: Marquis Wesley MD Electronically signed By Marquis Wesley MD Dictated Date: 04/17/2025 2:52:01 AM Prelim Date: 04/17/2025 2:57:16 AM Sign Date: 04/17/2025 2:57:16 AM Ordering Provider: ELODIA RAGLAND Interpreted by: Marquis Wesley MD Preliminary Report By: Marquis Wesley MD Electronically signed By Marquis Wesley MD Dictated Date: 04/17/2025 2:52:01 AM Prelim Date: 04/17/2025 2:57:16 AM Sign Date: 04/17/2025 2:57:16 AM Ordering [facility] LABORATORYOrdered By: SYSTEM SYSTEM on 04-16-2025 Albumin BCP dye [Mass/Vol] 3.3 G/dL Normal 3.2 - 4.8 G/dL ADM SS Albumin/Globulin [Mass ratio] 1.0 {ratio} Normal 0.9 - 1.6 ratio AH ADM SS ALP [Catalytic activity/Vol] 62 U/L Normal 38 - 126 U/L ADM SS ALT No additional P-5'-P [Catalytic activity/Vol] 16 U/L Normal 10 - 49 U/L ADM SS AST [Catalytic activity/Vol] 20 U/L Normal 8 - 34 U/L ADM SS Bilirubin [Mass/Vol] mg/dL Normal 0.20 - 1.20 mg/dL ADM SS Comment on above: Interpretive Data: U se of this assay is not recommended for patients undergoing treatment with eltrombopag due to the potential for falsely elevated results. D-Dimer HS ng/mL D-DU Normal 0 - 230 ng/mL D-DU [facility] Comment on above: Result Comment: Spec imen hemolyzed. Results may be affected. Pre-analytical evaluation of the specimen suggests possible interference due to lipemia. Results should be interpreted with caution. DDN: Results reported in D-DU ng/mL. Negative for D-dimer. DVT/PE is highly unlikely. Note: False negative results may be seen in patients on anticoagulant therapy. Interpretive Data: T he result of the D-Dimer test should be evaluated in the context of all the clinical and laboratory data available. In those instances where the laboratory result does not agree with the clinical evaluation, additional tests should be performed accordingly. If the D-Dimer result is used to exclude DVT or PE, the recommended cutoff value is less than 230 ng/mL. The D-Dimer result should not be used alone to rule in DVT/PE, but should be used in conjunction with a clinical pretest probability (PTP)assessment model to exclude venous thromboembolism (VTE) in patients suspected of deep venous thrombosis (DVT) and pulmonary embolism (PE). Globulin 3.3 G/dL Normal 2.5 - 4.2 G/dL AH ADM SS Lactate [Moles/Vol] 1.8 mmol/L Normal 0.5 - 2. 2 mmol/L ADM SS Lipase [Catalytic activity/Vol] 32 U/L Normal 12 - 53 U/L ADM SS Monocyte distribution width Auto (Bld) [Entitic vol] 19.98 1 Normal 0.00 - 20.00 Workflow SS Comment on above: Result Comment: For ED adult patients suspected of sepsis, MDW<=20.0 does not rule out sepsis or risk of sepsis Protein [Mass/Vol] 6.6 G/dL Normal 5.7 - 8.2 G/dL ADM SS Troponin I.cardiac DL <= 0.01 ng/mL [Mass/Vol] ng/L Normal 0 - 34 ng/L ADM SS Comment on above: Interpretive Data: High Sensitive Troponin I Reference Ranges: Female: 0-34 ng/L Male: 0-54 ng/L Testing performed on [employer] analyzer using direct chemiluminescent technology. .Auto Diffon 04-15-2025 Basophil, Absolute 0.1 10 3/mcL Normal 0.0-0.3 [facility] Comment on above: Performed By: #### A DIFF, GFR, CBC, MDW, ANEU, LIP, CMP ####[place] [address] [place], [place] [address] Basophils/100 WBC (Bld) 1.0 % Normal 0.0-2.5 [facility] Comment on above: Performed By: #### A DIFF, GFR, CBC, MDW, ANEU, LIP, CMP ####[facility] [address] [place], [place] [address] Eosinophil, Absolute 0.1 10 3/mcL Normal 0.0-0.7 [facility] Comment on above: Performed By: #### A DIFF, GFR, CBC, MDW, ANEU, LIP, CMP ####[facility] [address] [place], [place] [address] Eosinophils/100 WBC (Bld) 2.0 % Normal 0.0-6.0 [facility] Comment on above: Performed By: #### A DIFF, GFR, CBC, MDW, ANEU, LIP, CMP ####[facility] [address] [place], [place] [address] Lymphocyte, Absolute 1.8 10 3/mcL Normal 0.9-4.3 [facility] Comment on above: Performed By: #### A DIFF, GFR, CBC, MDW, ANEU, LIP, CMP ####[facility] [address] [place], [place] [address] Lymphocytes/100 WBC (Bld) 26.4 % Normal 20.0-40.0 [facility] Comment on above: Performed By: #### A DIFF, GFR, CBC, MDW, ANEU, LIP, CMP ####[facility] [address] [place], [place] [address] Monocyte, Absolute 0.5 10 3/mcL Normal 0.1-1.4 [facility] Comment on above: Performed By: #### A DIFF, GFR, CBC, MDW, ANEU, LIP, CMP ####[place] [address] [place], [place] [address] Monocytes/100 WBC (Bld) 7.3 % Normal 2.0-13.0 [facility] Comment on above: Performed By: #### A DIFF, GFR, CBC, MDW, ANEU, LIP, CMP ####[facility] [address] [place], [place] [address] Neutrophils/100 WBC (Bld) 63.3 % Normal 50.0-75.0 [facility] Comment on above: Performed By: #### A DIFF, GFR, CBC, MDW, ANEU, LIP, CMP ####[facility] [address] [place], [place] [address] .GFRon 04-15-2025 Estimated Glomerular Filtration Rate 67 ml/min/1.73sqm Normal [facility] Comment on above: Result Comment: Stages of Chronic Kidney Disease (CKD) Stage Description eGFR(ml/min/1.73 sq.m.) CKD 1 Normal kidney function or >=90 normal kindney function with possible kidney damage (ex. Proteinuria) CKD 2 Kidney damage with mild loss 60-89 of kidney function CKD 3a Mild to moderate loss of kidney 45-59 function CKD 3b Moderate to severe loss of 30-44 of kindey function CKD 4 Severe loss of kidney function 15-29 CKD 5 Kidney failure <15 Note: (go live 2024) the eGFR calculation was updated to the 2020 CKD-EPI creatinine equation without a race factor to calculate the eGFR results. Performed By: #### A DIFF, GFR, CBC, MDW, ANEU, LIP, CMP ####[id number] [place] [address] .MDWon 04-15-2025 Monocyte Distribution Width 16.24 Normal 0.00-20.00 [facility] Comment on above: Result Comment: For ED adult patients suspected of sepsis, MDW<=20.0 does not rule out sepsis or risk of sepsis Performed By: #### A DIFF, GFR, CBC, MDW, ANEU, LIP, CMP ####[id number] [place] [address] .NEUABSon 04-15-2025 Neutrophil, Absolute 4.2 10 3/mcL Normal 2.3-8.1 [facility] Comment on above: Performed By: #### A DIFF, GFR, CBC, MDW, ANEU, LIP, CMP ####[id number] [place] [address] CBCon 04-15-2025 Erythrocyte distribution width (RBC) [Ratio] 13.9 % Normal 11.5-15.5 [facility] Comment on above: Performed By: #### A DIFF, GFR, CBC, MDW, ANEU, LIP, CMP ####[place] [address] Hematocrit (Bld) [Volume fraction] 39.2 % Normal 34.0-46.0 [facility] Comment on above: Performed By: #### A DIFF, GFR, CBC, MDW, ANEU, LIP, CMP ####[place] [address] Hgb 13.1 G/dL Normal 12.0-16.0 [facility] Comment on above: Performed By: #### A DIFF, GFR, CBC, MDW, ANEU, LIP, CMP ####[place] [id number] [address] MCH (RBC) [Entitic mass] 29.6 pg Normal 27.0-33.0 [facility] Comment on above: Performed By: #### A DIFF, GFR, CBC, MDW, ANEU, LIP, CMP ####[id number] [place], [place] [address] MCHC 33.4 G/dL Normal 32.0-36.0 [facility] Comment on above: Performed By: #### A DIFF, GFR, CBC, MDW, ANEU, LIP, CMP ####[id number] [place] [id number] MCV (RBC) [Entitic vol] 88.8 fL Normal 80.0-99.0 [facility] Comment on above: Performed By: #### A DIFF, GFR, CBC, MDW, ANEU, LIP, CMP ####[place] [address] [place] [id number] Platelet 301 10 3/mcL Normal 150-450 [facility] Comment on above: Performed By: #### A DIFF, GFR, CBC, MDW, ANEU, LIP, CMP ####[place] [id number] Platelet mean volume (Bld) [Entitic vol] 9.8 fL Normal 6.6-10.5 [facility] Comment on above: Performed By: #### A DIFF, GFR, CBC, MDW, ANEU, LIP, CMP ####[place] [address] [place], [place] [address] RBC 4.42 10 6/mcL Normal 4.10-5.30 [facility] Comment on above: Performed By: #### A DIFF, GFR, CBC, MDW, ANEU, LIP, CMP ####[facility] [place] [place], [place] [address] WBC 6.7 10 3/mcL Normal 4.5-10.8 [facility] Comment on above: Performed By: #### A DIFF, GFR, CBC, MDW, ANEU, LIP, CMP ####[facility] [place], [place] [address] CMPon 04-15-2025 Albumin Level 3.3 G/dL Low 3.5-5.0 [facility] Comment on above: Performed By: #### A DIFF, GFR, CBC, MDW, ANEU, LIP, CMP ####[address] [address] Albumin/Globulin [Mass ratio] 0.8 {ratio} Low 1.1-2.5 [facility] Comment on above: Performed By: #### A DIFF, GFR, CBC, MDW, ANEU, LIP, CMP ####[place] [address] [place], [place] [address] ALP [Catalytic activity/Vol] 76 U/L Normal 40-135 [facility] Comment on above: Performed By: #### A DIFF, GFR, CBC, MDW, ANEU, LIP, CMP ####[place] [id number] [place] [id number] ALT [Catalytic activity/Vol] 33 U/L Normal 14-59 [facility] Comment on above: Performed By: #### A DIFF, GFR, CBC, MDW, ANEU, LIP, CMP ####[place] [phone] AST [Catalytic activity/Vol] 25 U/L Normal 10-40 [facility] Comment on above: Performed By: #### A DIFF, GFR, CBC, MDW, ANEU, LIP, CMP ####[place] [address] [place], [place] [address] Bili Total 0.2 mg/dL Normal 0.2-1.0 [facility] Comment on above: Result Comment: Use of this assay is not recommended for patients undergoing treatment with eltrombopag due to the potential for falsely elevated results. Performed By: #### A DIFF, GFR, CBC, MDW, ANEU, LIP, CMP ####[place] [address] [place], [place] [address] BUN/Creatinine Ratio 16 ratio Normal 7-27 [facility] Comment on above: Performed By: #### A DIFF, GFR, CBC, MDW, ANEU, LIP, CMP ####[place] [address] [place], [place] [address] Calcium [Mass/Vol] 9.3 mg/dL Normal 8.4-10.2 [facility] Comment on above: Performed By: #### A DIFF, GFR, CBC, MDW, ANEU, LIP, CMP ####[address] [place], [place] [address] Chloride [Moles/Vol] 104 mmol/L Normal 98-107 [facility] Comment on above: Performed By: #### A DIFF, GFR, CBC, MDW, ANEU, LIP, CMP ####[address]ole [address] [place], [place] [address] CO2 [Moles/Vol] 30 mmol/L High 22-29 [facility] Comment on above: Performed By: #### A DIFF, GFR, CBC, MDW, ANEU, LIP, CMP ####[address]ole [address] [place], [place] [address] Creatinine [Mass/Vol] 1.01 mg/dL High 0.51-0.95 [facility] Comment on above: Performed By: #### A DIFF, GFR, CBC, MDW, ANEU, LIP, CMP ####Nicole [address] [address] Electrolyte Balance 8.0 mEq/L Normal 4.0-15.0 [facility] Comment on above: Performed By: #### A DIFF, GFR, CBC, MDW, ANEU, LIP, CMP ####[facility] [place] [place], [place] [address] Globulin 4.4 G/dL Normal 2.7-4.4 [facility] Comment on above: Performed By: #### A DIFF, GFR, CBC, MDW, ANEU, LIP, CMP ####[facility] [place], [place] [address] Glucose [Mass/Vol] 108 mg/dL High 70-105 [facility] Comment on above: Performed By: #### A DIFF, GFR, CBC, MDW, ANEU, LIP, CMP ####[address]ole [address] [place], [place] [address] Potassium [Moles/Vol] 3.6 mmol/L Normal 3.5-5.1 [facility] Comment on above: Performed By: #### A DIFF, GFR, CBC, MDW, ANEU, LIP, CMP ####[facility] [place] [place], [place] [address] Sodium [Moles/Vol] 142 mmol/L Normal 136-145 [facility] Comment on above: Performed By: #### A DIFF, GFR, CBC, MDW, ANEU, LIP, CMP ####[place] [address] [place], [place] [address] Total Protein 7.7 G/dL Normal 6.4-8.2 [facility] Comment on above: Performed By: #### A DIFF, GFR, CBC, MDW, ANEU, LIP, CMP ####[place] [address] [place] [id number] Urea nitrogen [Mass/Vol] 16 mg/dL Normal 7-18 [facility] Comment on above: Performed By: #### A DIFF, GFR, CBC, MDW, ANEU, LIP, CMP ####[place] [address] [place], [place] [address] CT ABD/PELVIS W/ IV CONTRAST ONLYon 04-15-2025 CT ABD/PELVIS W/ IV CONTRAST ONLY ORIGINAL EXAMINATION: CT OF THE ABDOMEN AND PELVIS WITH CONTRAST 04/15/2025 4:36 pm TECHNIQUE: CT of the abdomen and pelvis was performed with the administration of intravenous contrast. Multiplanar reformatted images are provided for review. Automated exposure control, iterative reconstruction, and/or weight based adjustment of the mA/kV was utilized to reduce the radiation dose to as low as reasonably achievable. COMPARISON: CT abdomen pelvis 08/20/2017 HISTORY: ORDERING SYSTEM PROVIDED HISTORY: Reason for Exam: Abdominal pain, acute, nonlocalized FINDINGS: The heart is normal in size. No pericardial thickening. Trace amount of pericardial recess fluid. Atelectasis and scarring noted within the lung bases. The aorta is nonaneurysmal with minimal atherosclerosis. No adenopathy within the abdomen or pelvis. Stable 2 cm left hepatic lobe cyst. The gallbladder, spleen, pancreas, and bilateral adrenal glands are unremarkable. Kidneys enhance symmetrically. Bilateral nephrolithiasis. No hydronephrosis. Stable left midpole simple renal cyst. Bladder is unremarkable. Uterus is unremarkable. Suspected left fallopian tube closure device. No adnexal lesion. No pneumoperitoneum or free fluid. The large and small bowel are normal in caliber. Normal appendix. No inflammatory changes of the GI tract. Duodenal diverticulum noted. No acute osseous abnormality. IMPRESSION: No acute finding. Bilateral nonobstructive nephrolithiasis. I have personally reviewed the images of this examination and agree with the resident's findings and interpretation. Interpreted by: Ilir Borrero Preliminary Report By: Gautam Sherwood Electronically signed By Ilir Borrero Dictated Date: 04/15/2025 4:54:27 PM Prelim Date: 04/15/2025 5:00:15 PM Sign Date: 04/15/2025 5:14:15 PM Ordering Provider: CHLOE PIZANO Interpreted by: Ilir Borrero Preliminary Report By: Gautam Sherwood Electronically signed By Ilir Borrero Dictated Date: 04/15/2025 4:54:27 PM Prelim Date: 04/15/2025 5:00:15 PM Sign Date: 04/15/2025 5:14:15 PM Ordering Provider: CHLOE PIZANO Normal [facility] LABORATORYOrdered By: SYSTEM SYSTEM on 04-15-2025 Albumin BCP dye [Mass/Vol] 3.3 G/dL Low 3.5 - 5.0 G/dL AO ADM SS Albumin/Globulin [Mass ratio] 0.8 {ratio} Low 1.1 - 2.5 ratio AO ADM SS ALP [Catalytic activity/Vol] 76 U/L Normal 40 - 135 U/L AO ADM SS ALT With P-5'-P [Catalytic activity/Vol] 33 U/L Normal 14 - 59 U/L AO ADM SS AST With P-5'-P [Catalytic activity/Vol] 25 U/L Normal 10 - 40 U/L AO ADM SS Basophils (Bld) [#/Vol] 0.1 103/mcL Normal 0.0 - 0.3 10^3/mcL AO Workflow SS Basophils/100 WBC (Bld) 1.0 % Normal 0.0 - 2.5 % AO Workflow SS Bilirubin [Mass/Vol] 0.2 mg/dL Normal 0.2 - 1 .0 mg/dL AO ADM SS Comment on above: Interpretive Data: U se of this assay is not recommended for patients undergoing treatment with eltrombopag due to the potential for falsely elevated results. Calcium [Mass/Vol] 9.3 mg/dL Normal 8.4 - 10. 2 mg/dL AO ADM SS Chloride [Moles/Vol] 104 mmol/L Normal 98 - 10 7 mmol/L AO ADM SS CO2 [Moles/Vol] 30 mmol/L High 22 - 29 mmol/L AO ADM SS Creatinine [Mass/Vol] 1.01 mg/dL High 0.51 - 0.95 mg/dL AO ADM SS Electrolyte Balance 8.0 mEq/L Normal 4.0 - 15 .0 mEq/L AO ADM SS Eosinophil, Absolute 0.1 103/mcL Normal 0.0 - 0 .7 10^3/mcL AO Workflow SS Eosinophils/100 WBC (Bld) 2.0 % Normal 0.0 - 6.0 % AO Workflow SS Erythrocyte distribution width (RBC) [Ratio] 13.9 % Normal 11.5 - 15.5 % AO Workflow SS Estimated Glomerular Filtration Rate 67 ml/min/1.73sqm Invalid Interpretation Code AO Chemistry S Comment on above: Interpretive Data: Stages of Chronic Kidney Disease (CKD) Stage Description eGFR(ml/min/1.73 sq.m.) CKD 1 Normal kidney function or >=90 normal kindney function with possible kidney damage (ex. Proteinuria) CKD 2 Kidney damage with mild loss 60-89 of kidney function CKD 3a Mild to moderate loss of kidney 45-59 function CKD 3b Moderate to severe loss of 30-44 of kindey function CKD 4 Severe loss of kidney function 15-29 CKD 5 Kidney failure <15 Note: (go live 2024) the eGFR calculation was updated to the 2020 CKD-EPI creatinine equation without a race factor to calculate the eGFR results. Globulin 4.4 G/dL Normal 2.7 - 4.4 G/dL AO ADM SS Glucose [Mass/Vol] 108 mg/dL High 70 - 105 mg/dL AO ADM SS Hematocrit (Bld) [Volume fraction] 39.2 % Normal 34.0 - 46.0 % AO Workflow SS Hemoglobin (Bld) [Mass/Vol] 13.1 G/dL Normal 12.0 - 16.0 G/dL AO Workflow SS Lipase [Catalytic activity/Vol] 59 U/L Normal 16 - 77 U/L AO ADM SS Lymphocytes (Bld) [#/Vol] 1.8 103/mcL Normal 0.9 - 4.3 10^3/mcL AO Workflow SS Lymphocytes/100 WBC (Bld) 26.4 % Normal 20.0 - 40.0 % AO Workflow SS MCH (RBC) [Entitic mass] 29.6 pg Normal 27.0 - 33.0 pg AO Workflow SS MCHC 33.4 G/dL Normal 32.0 - 36.0 G/dL AO Workflow SS MCV (RBC) [Entitic vol] 88.8 fL Normal 80.0 - 99.0 fL AO Workflow SS Monocyte distribution width Auto (Bld) [Entitic vol] 16.24 1 Normal 0.00 - 20.00 AO Workflow SS Comment on above: Result Comment: For ED adult patients suspected of sepsis, MDW<=20.0 does not rule out sepsis or risk of sepsis Monocytes (Bld) [#/Vol] 0.5 103/mcL Normal 0.1 - 1.4 10^3/mcL AO Workflow SS Monocytes/100 WBC (Bld) 7.3 % Normal 2.0 - 13.0 % AO Workflow SS Neutrophils (Bld) [#/Vol] 4.2 103/mcL Normal 2.3 - 8.1 10^3/mcL AO Workflow SS Neutrophils/100 WBC (Bld) 63.3 % Normal 50.0 - 75.0 % AO Workflow SS Platelet mean volume (Bld) [Entitic vol] 9.8 fL Normal 6.6 - 10.5 fL AO Workflow SS Platelets (Bld) [#/Vol] 301 103/mcL Normal 150 - 450 10^3/mcL AO Workflow SS Potassium [Moles/Vol] 3.6 mmol/L Normal 3.5 - 5.1 mmol/L AO ADM SS Protein [Mass/Vol] 7.7 G/dL Normal 6.4 - 8.2 G/dL AO ADM SS RBC (Bld) [#/Vol] 4.42 106/mcL Normal 4.10 - 5.3 0 10^6/mcL AO Workflow SS Sodium [Moles/Vol] 142 mmol/L Normal 136 - 145 mmol/L AO ADM SS Urea nitrogen [Mass/Vol] 16 mg/dL Normal 7 - 18 mg/dL AO ADM SS Urea nitrogen/Creatinine [Mass ratio] 16 ratio Normal 7 - 27 ratio AO ADM SS WBC (Bld) [#/Vol] 6.7 103/mcL Normal 4.5 - 10.8 10^3/mcL AO Workflow SS LABORATORYOrdered By: Marisol Lam on 04-15-2025 Appearance (U) Clear (04/15/25 3:30 PM) Normal Clear AO Auto Urine SS Bilirubin Ql (U) Negative (04/15/25 3:30 PM) Normal Negative AO Auto Urine SS Color (U) Yellow (04/15/25 3:30 PM) Normal AO Auto Urine SS Glucose Test strip (U) [Mass/Vol] Negative Normal Negative AO Auto Urine SS Hemoglobin Auto test strip (U) [Mass/Vol] Negative (04/15/25 3:30 PM) Normal Negative AO Auto Urine SS Ketones Ql (U) Negative Normal Negative AO Auto Urine SS UA Leuk Est Negative (04/15/25 3:30 PM) Normal Negative AO Auto Urine SS UA Nitrite Negative (04/15/25 3:30 PM) Normal Negative AO Auto Urine SS UA pH 5.5 (04/15/25 3:30 PM) Normal 5.0 - 8.0 AO Auto Urine SS UA Protein Negative Normal Negative AO Auto Urine SS UA Spec Grav >=1.030 *ABN* (04/15/25 3:30 PM) Invalid Interpretation Code 1.015-1.025 AO Auto Urine SS UA Specimen Type Not Given (04/15/25 3:30 PM) Normal AO Auto Urine SS UA Urobilinogen 0.2 E.U./dL Normal 0.2-1.0 AO Auto Urine SS LIPon 04-15-2025 Lipase Level 59 U/L Normal 16-77 [facility] Comment on above: Performed By: #### A DIFF, GFR, CBC, MDW, ANEU, LIP, CMP ####[address] [place], [place] [address] UAon 04-15-2025 Color (U) Yellow Normal [facility] Comment on above: Performed By: #### U A ####[address] [place], [place] [address] Glucose (U) [Mass/Vol] Negative Normal Negative [facility] Comment on above: Performed By: #### U A ####Nicole [address] [place], [place] [address] Ketones Ql (U) Negative Normal Negative [facility] Comment on above: Performed By: #### U A ####[place] [address] UA Appear Clear Normal Clear [facility] Comment on above: Performed By: #### U A ####[address] [place] [address] UA Blood Negative Normal Negative [facility] Comment on above: Performed By: #### U A ####[address] [address] UA Leuk Est Negative Normal Negative [facility] Comment on above: Performed By: #### U A ####[place] [address] UA Nitrite Negative Normal Negative [facility] Comment on above: Performed By: #### U A ####[place] [address] UA pH 5.5 Normal 5.0 - 8.0 [facility] Comment on above: Performed By: #### U A ####[place] [address] UA Protein Negative Normal Negative [facility] Comment on above: Performed By: #### U A ####[place] [address] UA Spec Grav >=1.030 Abnormal 1.015-1.025 [facility] Comment on above: Performed By: #### U A ####[place] [address] UA Specimen Type Not Given Normal [facility] Comment on above: Performed By: #### U A ####[address] [address] UA Urobilinogen 0.2 E.U./dL Normal 0.2-1.0 [facility] Comment on above: Performed By: #### U A ####[place] [address] Urobilinogen (U) [Mass/Vol] Negative Normal Negative [facility] Comment on above: Performed By: #### U A ####[facility] [place] [place], [place] [address] XR ANKLE AND FOOT 6 VIEWS LE FTon 03-23-2025 XR ANKLE AND FOOT 6 VIEWS LEFT ORIGINAL EXAMINATION: 6XRAY VIEWS OF THE ANKLE AND FOOT LEFT03/21/2025 4:30 pm COMPARISON: None HISTORY: ORDERING SYSTEM PROVIDED HISTORY: Reason for Exam: foot pain x6 weeks after abnormal step avoiding painful stimuli, eval for fracture PT TWISTED FOOT AND ANKLE 4 MONTHS AGO, LATERAL FOOT PAIN, FINDINGS: On the AP view of the foot there is slight irregularity of the lateral cortex of the cuboid. This is not evident on other radiographs. Other bones and joints in the foot are unremarkable. No other evidence of a fracture or dislocation, degenerative change or osteochondral lesions. IMPRESSION: Questionable findings of a fracture in the lateral aspect of the cuboid. Correlate with point tenderness. Interpreted by: Kurt Gill MD Preliminary Report By: Kurt Gill MD Electronically signed By Kurt Gill MD Dictated Date: 03/23/2025 11:24:13 AM Prelim Date: 03/23/2025 11:26:07 AM Sign Date: 03/23/2025 11:26:07 AM Ordering Provider: DOV Conteh [facility] LABORATORYOrdered By: Jose A taylor on 02-10-2025 Appearance (U) Slightly Cloudy *ABN* (02/10/25 5:24 PM) Invalid Interpretation Code Clear AO Auto Urine SS Bacteria LM.HPF (Urine sed) [#/Area] Trace /HPF Invalid Interpretation Code Negative AO Auto Urine SS Bilirubin Ql (U) Negative (02/10/25 5:24 PM) Normal Negative AO Auto Urine SS Calcium oxalate crystals LM.HPF (Urine sed) [#/Area] 1 /[HPF] Normal AO Auto Urine SS Color (U) Yellow (02/10/25 5:24 PM) Normal AO Auto Urine SS Glucose Test strip (U) [Mass/Vol] Negative Normal Negative AO Auto Urine SS Hemoglobin Auto test strip (U) [Mass/Vol] Negative (02/10/25 5:24 PM) Normal Negative AO Auto Urine SS Ketones Ql (U) Negative Normal Negative AO Auto Urine SS UA Leuk Est Negative (02/10/25 5:24 PM) Normal Negative AO Auto Urine SS UA Nitrite Negative (02/10/25 5:24 PM) Normal Negative AO Auto Urine SS UA pH 6.0 (02/10/25 5:24 PM) Normal 5.0 - 8.0 AO Auto Urine SS UA Protein Negative Normal Negative AO Auto Urine SS UA RBC 0-2 /HPF Normal 0-2 AO Auto Urine SS UA Spec Grav >=1.030 *ABN* (02/10/25 5:24 PM) Invalid Interpretation Code 1.015-1.025 AO Auto Urine SS UA Specimen Type Not Given (02/10/25 5:24 PM) Normal AO Auto Urine SS UA Squam Epithelial 3-5 /HPF Normal 0-20 AO Au to Urine SS UA Urobilinogen 0.2 E.U./dL Normal 0.2-1.0 AO Auto Urine SS WBC LM.HPF (Urine sed) [#/Area] 0-2 /HPF Normal 0-5 AO Auto Urine SS No Panel Informationon 02-10 Culture Urine <10,000 cfu/ml. No Significant growth. Sensitivity not indicated. [facility] Work Phone: UAon 02-10-2025 Color (U) Yellow Normal [facility] Comment on above: Performed By: #### U A, UAMIC ####[place] [address] [place], [place] [address] Glucose (U) [Mass/Vol] Negative Normal Negative [facility] Comment on above: Performed By: #### U A, UAMIC ####[place] [address] [place], [place] [address] Ketones Ql (U) Negative Normal Negative [facility] Comment on above: Performed By: #### U A, UAMIC ####[place] [address] [place], [place] [address] UA Appear Slightly Cloudy Abnormal Clear [facility] Comment on above: Performed By: #### U A, UAMIC ####[place] [address] [place], [place] [address] UA Blood Negative Normal Negative [facility] Comment on above: Performed By: #### U A, UAMIC ####[address] [place] [address] UA Leuk Est Negative Normal Negative [facility] Comment on above: Performed By: #### U A, UAMIC ####[address] [place] [address] UA Nitrite Negative Normal Negative [facility] Comment on above: Performed By: #### U A, UAMIC ####[address] [place] [address] UA pH 6.0 Normal 5.0 - 8.0 [facility] Comment on above: Performed By: #### U A, UAMIC ####[address] [place] [address] UA Protein Negative Normal Negative [facility] Comment on above: Performed By: #### U A, UAMIC ####[address] [place] [address] UA Spec Grav >=1.030 Abnormal 1.015-1.025 [facility] Comment on above: Performed By: #### U A, UAMIC ####[address] [place] [address] UA Specimen Type Not Given Normal [facility] Comment on above: Performed By: #### U A, UAMIC ####[address] [place] [address] UA Urobilinogen 0.2 E.U./dL Normal 0.2-1.0 [facility] Comment on above: Performed By: #### U A, UAMIC ####[address] [place] [address] Urobilinogen (U) [Mass/Vol] Negative Normal Negative [facility] Comment on above: Performed By: #### U A, UAMIC ####[address] [place] [address] UAMICon 02-10-2025 UA Bacteria Trace Abnormal Negative [facility] Comment on above: Performed By: #### U A, UAMIC ####[address] [place], [place] [address] UA CA Ox Crystal 1+ /hpf Normal [facility] Comment on above: Performed By: #### U A, UAMIC ####[address] [place], [place] [address] UA RBC 0-2 Normal 0-2 [facility] Comment on above: Performed By: #### U A, UAMIC ####[address] [place] [address] UA Squam Epithelial 3-5 Normal 0-20 [facility] Comment on above: Performed By: #### U A, UAMIC ####[address] [place] [address] UA WBC 0-2 Normal 0-5 [facility] Comment on above: Performed By: #### U A, UAMIC ####Nic[address] [place] [address] TFTESTon 01-16-2025 Free Testost Direct <0.2 Normal 0.0-4.2 [facility] Comment on above: Result Comment: Perf ormed At: [facility] [address] [id number] Charles Macias MD Ph:[phone] Performed At: [facility] [address] [id number] Stephanie Real PhD Ph:[phone] Performed By: #### 1 [address] ####[address] [place] [address]#### E2 ####[place] [address] Testosterone Lvl <3 Low 4-50 [facility] Comment on above: Performed By: #### 1 [address] ####[address] [place] [address]#### E2 ####[place] [address] E2on 01-09-2025 Estradiol Level 46.21 pg/mL Normal [facility] Comment on above: Result Comment: No te - New Reference Range in effect 20 Adult Female E2 Reference Ranges: Follicular phase 19.5 - 144.2 pg/mL Midcycle 63.9 - 356.7 pg/mL Luteal phase 55.8 - 214.2 pg/mL Post menopausal 0 - 33.2 pg/mL Performed By: #### 1 [address] ####[address] [place], [place] [address]#### E2 ####[address] [address] Abdomen/Pelvis without Conto n 01-03-2025 Abdomen/Pelvis without Cont [facility] Services [address] [place] [address] Abdomen/Pelvis without Cont MR#: [id number] Acct: [id number] Name: ASHLEY GOODE Rep #: [id number] : 1970 F 54 From: Jose A Garvin MD PCP: Dr. Dov Meade, DO Status: REG ER Study: Abdomen/Pelvis without Cont Date of Exam: 12/17 06/12 Exam# [id number] Ordering Dr: Amanda Gardner PROCEDURE: ABDOMEN/PELVIS WITHOUT CONT 01/03/2025 REASON FOR EXAM: R FLANK PAIN TECHNIQUE: CT abdomen and pelvis was performed without IV contrast. Coronal and sagittal reformats were generated. PATIENT PREPARATION: Per protocol ORAL CONTRAST TYPE: None. CONTRAST: None. One or more dose reduction techniques were used (e.g., Automated exposure control, adjustment of the mA and/or kV according to patient size, use of iterative reconstruction technique. RADIATION DOSE SUMMARY: CTDlvol: 20.93 mGy DLP: 1024.86 mGycm COMPARISON: 03/15/2022 FINDINGS: Note that evaluation of the abdominopelvic viscera, vasculature, and remaining soft tissues is limited in the absence of IV contrast. Lung bases: Mild atelectasis/scarring. Similar RIGHT lower lobe cyst. Liver: Similar small LEFT lobe cyst. Spleen: Unremarkable. Gallbladder: Unremarkable. Pancreas: Unremarkable. Adrenals: Unremarkable. Kidneys: Redemonstrated nonobstructing intrarenal calculi bilaterally, up to 3 mm on the RIGHT. Operative changes of RIGHT ureteral reimplantation on the anterior RIGHT bladder dome. No hydronephrosis or ureteral calculus identified. Similar exophytic LEFT renal cyst. Bowel: Unremarkable. Normal caliber appendix. Lymph nodes: Unremarkable. Vasculature: Mild calcific atherosclerosis. Peritoneum: Unremarkable. Bladder: As above. Otherwise underdistended and suboptimally evaluated, grossly unremarkable. Reproductive Organs: Unremarkable. Body Wall: Tiny fat containing umbilical hernia.. Bones: Unremarkable. CT/Abdomen/Pelvis without Cont IMPRESSION: 1. No acute noncontrast findings. No hydronephrosis or ureteral calculus identified. 2. Additional description as above. Reading Location: [id number] CC: Dr. Dov Meade DO; RICCARDO Chicas Line Fixer: Signed Normal [facility] Absolute neutrophil countOrd ered By: Amanda Gardner on 01-03-2025 Neutrophils (Bld) [#/Vol] 5.6 10*3/uL 2.0-7.7 [facility] Anion gap in Serum or Plasma Ordered By: Amanda Gardner on 01-03-2025 Anion gap [Moles/Vol] 12 mmol/L - [facility] BUN/creatinine ratioOrdered By: Amanda Gardner on 01-03-2025 Urea nitrogen/Creatinine [Mass ratio] 15.0 mg/mg - [facility] Basic Metabolic Profile (BMP )on 01-03-2025 BUN/CRE 15.0 RATIO Normal - [facility] Comment on above: Performed By: #### L 100.0100, L500.2500 #### [facility] [address] [place], [address] Calcium [Mass/Vol] 9.2 mg/dL Normal 7.6-11.0 [facility] Comment on above: Performed By: #### L 100.0100, L500.2500 #### [facility] [address] [place], [address] Chloride [Moles/Vol] 104 mmol/L Normal 98-108 [facility] Comment on above: Performed By: #### L 100.0100, L500.2500 #### [facility] [address] [place], [address] CO2 [Moles/Vol] 20.1 mmol/L Low 21.0-32.0 [facility] Comment on above: Performed By: #### L 100.0100, L500.2500 #### [facility] [address] [place], [address] Creatinine [Mass/Vol] 0.95 mg/dL Normal 0.70-1.20 [facility] Comment on above: Performed By: #### L 100.0100, L500.2500 #### [facility] [address] [place], [address] ECRCL 69.74 ml/min Normal 50-250 [facility] Comment on above: Performed By: #### L 100.0100, L500.2500 #### [facility] [address] [place], [address] GAP 12 Normal 5-15 [facility] Comment on above: Performed By: #### L 100.0100, L500.2500 #### [facility] [address] [place], [address] GFR/1.73 sq M.predicted among non-blacks MDRD (S/P/Bld) [Vol rate/Area] 72 mL/min/{1.73_m2} Normal >60 [facility] Comment on above: Result Comment: mL/m in/1.73m2 CKD-EPI Creatinine Equation (2020) Performed By: #### L 100.0100, L500.2500 #### [facility] [address] [place], [address] Glucose [Mass/Vol] 113 mg/dL High 70-99 [facility] Comment on above: Performed By: #### L 100.0100, L500.2500 #### [facility] [address] [place], [address] Potassium [Moles/Vol] 3.7 mmol/L Normal 3.3-5.1 [facility] Comment on above: Result Comment: Hemo lysis present, Results??could be affected. ?? Performed By: #### L 100.0100, L500.2500 #### [facility] [address] [place], [address] Sodium [Moles/Vol] 137 mmol/L Normal 133-145 [facility] Comment on above: Performed By: #### L 100.0100, L500.2500 #### [facility] [address] [place], [address] Urea nitrogen [Mass/Vol] 14 mg/dL Normal 4-19 [facility] Comment on above: Performed By: #### L 100.0100, L500.2500 #### [facility] [address] [place], [address] Basophil percentageOrdered B y: Amanda Gardner on 01-03-2025 Basophils/100 WBC (Bld) 0.7 % 0-1 [facility] Bilirubin Test strip Ql (U)O rdered By: Amanda Gardner on 01-03-2025 Bilirubin Ql (U) Negative Negative [facility] CBC W/Diff, Automatedon 03- Absolute Lymph 1.83 X10 3/uL Normal 0.83-4.51 [facility] Comment on above: Performed By: #### L 100.0100, L500.2500 #### [facility] [address] [place], [address] Absolute Neut 5.6 X10 3/uL Normal 2.0-7.7 [facility] Comment on above: Performed By: #### L 100.0100, L500.2500 #### [facility] [address] [place], [address] Basophils/100 WBC (Bld) 0.7 % Normal 0-1 [facility] Comment on above: Performed By: #### L 100.0100, L500.2500 #### [facility] [address] [place], [address] Eosinophils/100 WBC (Bld) 1.8 % Normal 0-5 [facility] Comment on above: Performed By: #### L 100.0100, L500.2500 #### [facility] [address] [place], [address] Erythrocyte distribution width (RBC) [Ratio] 13.6 % Normal 11.6-14.6 [facility] Comment on above: Performed By: #### L 100.0100, L500.2500 #### [facility] [address] [place], [address] Hematocrit (Bld) [Volume fraction] 37.6 % Normal 37-47 [facility] Comment on above: Performed By: #### L 100.0100, L500.2500 #### [facility] [address] [place], [address] Hemoglobin (Bld) [Mass/Vol] 12.6 g/dL Normal 12.0-15.0 [facility] Comment on above: Performed By: #### L 100.0100, L500.2500 #### [facility] [address] [place], [address] IG% 0.500 Normal 0.0-0.9 [facility] Comment on above: Result Comment: IG% - Immature Granulocytes (promyelocytes, myelocytes and metamyelocytes) > 1% indicates that a LEFT SHIFT is Present. Performed By: #### L 100.0100, L500.2500 #### [facility] [address] [place], [address] Lymphocytes/100 WBC (Bld) 22.3 % Normal 19-41 [facility] Comment on above: Performed By: #### L 100.0100, L500.2500 #### [facility] [address] [place], [address] MCH (RBC) [Entitic mass] 30.4 pg Normal 27.0-32.0 [facility] Comment on above: Performed By: #### L 100.0100, L500.2500 #### [facility] [address] [place], [address] MCHC (RBC) [Mass/Vol] 33.5 g/dL Normal 32-36 [facility] Comment on above: Performed By: #### L 100.0100, L500.2500 #### [facility] [address] [place], [address] MCV (RBC) [Entitic vol] 90.8 fL Normal 81-99 [facility] Comment on above: Performed By: #### L 100.0100, L500.2500 #### [facility] [address] [place], [address] Monocytes/100 WBC (Bld) 6.5 % Normal 0-10 [facility] Comment on above: Performed By: #### L 100.0100, L500.2500 #### [facility] [address] [place], [address] Neutrophils/100 WBC (Bld) 68.2 % Normal 47-70 [facility] Comment on above: Performed By: #### L 100.0100, L500.2500 #### [facility] [address] [place], [address] Nucleated RBC (Bld) [#/Vol] 0 10*3/uL Normal 0-5 [facility] Comment on above: Performed By: #### L 100.0100, L500.2500 #### [facility] [address] [place], [address] Platelet mean volume (Bld) [Entitic vol] 11.9 fL Normal 6.2-12.0 [facility] Comment on above: Performed By: #### L 100.0100, L500.2500 #### [facility] [address] [place], [address] Platelets (Bld) [#/Vol] 320 10*3/uL Normal 150-450 [facility] Comment on above: Performed By: #### L 100.0100, L500.2500 #### [facility] [address] [place], [address] RBC (Bld) [#/Vol] 4.14 10*6/uL Low 4.2-5.4 [facility] Comment on above: Performed By: #### L 100.0100, L500.2500 #### [facility] [address] [place], [address] RDW SD 45.1 fl High 35.1-43.9 [facility] Comment on above: Performed By: #### L 100.0100, L500.2500 #### [facility] [address] [place], [address] WBC (Bld) [#/Vol] 8.2 10*3/uL Normal 4.4-11.0 [facility] Comment on above: Performed By: #### L 100.0100, L500.2500 #### [facility] [address] [place], [address] CTA Abd/Pelvis W/WO Contrast on 01-03-2025 CTA Abd/Pelvis W/WO Contrast [facility] Imaging Services [address] [place] [address] CTA Abd/Pelvis W/WO Contrast MR#: [id number] Acct: [id number] Name: ASHLEY GOODE Rep #: [id number] : 1970 F 54 From: Tigre Ziegler MD PCP: Dr. Dov Meade, DO Status: REG ER Study: CTA Abd/Pelvis W/WO Contrast Date of Exam: Exam# [id number] Ordering Dr: Amanda Gardner PROCEDURE: CTA ABD/PELVIS W/WO CONTRAST REASON FOR EXAM: R FLANK PAIN, ATTENTION R KIDNEY TECHNIQUE: CTA of the abdomen and pelvis with contrast with coronal and sagittal reformatted images IV CONTRAST: 100 cc Isovue 370 COMPARISON: None. FINDINGS: Dependent basilar atelectasis. The liver, gallbladder, adrenal glands, pancreas and spleen appear within limits. Symmetric appearing nephrograms without perinephric stranding. Incidental left renal cyst noted. A couple nonobstructing right intrarenal stones. There is mild asymmetric prominence of the right renal collecting system compared to the left. No peripelvic stranding or evidence of urothelial thickening/enhancement identified. No ureteral or bladder stone seen. Again noted is reimplantation of the right ureter at the right dome of the bladder. The bladder appears within limits. Abdominal aorta appears within limits without aneurysm or dissection. The celiac, SMA and MOIZ fill with contrast as expected. Left renal artery appears within limits. Right renal artery appears within limits. An accessory right upper pole renal artery from the aorta is identified. The renal veins appear within limits. No adenopathy identified. No bowel dilation or free air. Normal caliber appendix without secondary signs. The uterus/adnexa appear within limits. No free fluid seen. Visualized osseous structures appear within limits. CT/CTA Abd/Pelvis W/WO Contrast IMPRESSION: Symmetric appearing nephrograms without perinephric stranding. Incidental left renal cyst noted. A couple nonobstructing right intrarenal stones. There is mild asymmetric prominence of the right renal collecting system compared to the left. No peripelvic stranding or evidence of urothelial thickening/enhancement identified. No ureteral or bladder stone seen. Again noted is reimplantation of the right ureter at the right dome of the bladder. Right renal artery appears within limits. An accessory right upper pole renal artery from the aorta is identified. The renal veins appear within limits. One or more dose reduction techniques were used (e.g., Automated exposure control, adjustment of the mA and/or kV according to patient size, use of iterative reconstruction technique). Reading Location: [facility] CC: Dr. Dov Meade DO; RICCARDO Chicas Line Fixer: Signed Normal [facility] Carbon dioxide, total [Moles /volume] in Central venous bloodOrdered By: Amanda Gardner on 01-03-2025 CO2 [Moles/Vol] 20.1 mmol/L Low 21.0-32.0 [facility] Chloride assayOrdered By: Adalgisa Gardner on 01-03-2025 Chloride [Moles/Vol] 104 mmol/L 98-108 [facility] Emergency Department Summary on 01-03-2025 Emergency Department Summary [facility] Medical Records Department [address] [place] [address] Emergency Department Summary 01/03/25 MR#: [id number] Acct: [id number] Name: ASHLEY GOODE Rep #: [id number] : 1970 54 From: Amanda GU PCP: Dr. Dov Meade DO Status:DEP ER Location: ED HPI HPI - Female History of Present Illness Chief Complaint: Flank Pain Narrative Narrative: Patient presenting today with right sided flank pain that started yesterday that has been gradually worsening. She does have a significant history of kidney stones, she reports that her symptoms today feel consistent with this. She follows with Dr. Prabhakar, she has had to have surgical removal of stones in the past. She denies fevers, chills, abdominal pain, and urinary symptoms. She reports nausea and vomiting from the pain. [facility] Medical History High cholesterol History of IBS GERD (gastroesophageal reflux disease) Depression Fatigue IBS (irritable bowel syndrome) Kidney stones Insomnia Anxiety Ovarian cyst Tubal Personal history of kidney stones Hx of renal impairment Home Medications ???Medication ???Instructions ???Recorded ???Last Taken ???Type trazodone 100 mg tablet 200 mg PO QHS 10/12/21 Unknown His tory nitrofurantoin macrocrystal 100 mg 100 mg PO QHS Check with primary 06/16/22 Unknown History capsule doctor citalopram 20 mg tablet 20 mg PO DAILY 08/05/22 Unknown Hi story estradiol 1 mg tablet 1 mg PO DAILY 10/25/24 Unknown His tory medroxyprogesterone 5 mg tablet 5 mg PO DAILY 10/25/24 Unknown His tory metformin 500 mg tablet 500 mg PO DAILY 10/25/24 Unknown H istory omeprazole 20 mg capsule,delayed 20 mg PO DAILY 10/25/24 10/28/24 H istory release docusate sodium 100 mg capsule 100 mg PO BID #20 caps 10/28/24 Un known Rx enoxaparin 40 mg/0.4 mL 40 mg (0.4 mL) subcut DAILY 14 08/12 Unknown Rx subcutaneous syringe (Lovenox) days #5.6 mL oxycodone 5 mg tablet 5 mg PO Q6H PRN pain 7 days #28 Unknown Rx tabs ondansetron 4 mg disintegrating 4 mg PO Q8H PRN nausea and 5 Unknown Rx tablet vomiting #20 tabs Allergy/AdvReac Type Severity Reaction Status Date / Time meperidine HCl (From Demerol) Allergy Other Verified 01/03/25 16:14 morphine Allergy Rash Verified 01/03/25 16:14 Family History Mother Colon cancer Father Diabetes Surgical History History of spinal fusion ( 02/2024) History of elbow surgery History of lithotripsy H/O ovarian cystectomy H/O dilation and curettage Hx of tubal ligation History of [facility] 2 current occupational status: employed current occupation: [id number] Smoking Status: Never smoker substance use type: does not use ROS ROS ED Constitutional Constitutional ED: Denies chills or fever(s) Cardiovascular Cardiovascular: Denies chest pain Respiratory/Chest Respiratory/Chest: Denies dyspnea Gastrointestinal Gastrointestinal: Denies abdominal pain, nausea or vomiting Genitourinary Genitourinary ED: Reports other Details: Right flank pain ; Denies dysuria, hematuria or urinary frequency Integumentary Denies rash Neurologic Neurologic: Denies weakness EXAM Physical Exam Const Vital Signs: 01/03/25 16:14 01/03/25 17:16 01/03/25 18:20 Temperature 98.9 F 98 F 98.9 F Temperature Source Oral Temporal Oral Pulse Rate 100 71 74 Respiratory Rate 18 14 18 Blood Pressure 94/82 H 121/54 H 121/54 H Blood Pressure Mean 86 76 76 Pulse Ox 100 98 99 Oxygen Delivery Method Room Air Room Air Room Air 01/03/25 20:00 01/03/25 20:57 Temperature 98.5 F 98.5 F Temperature Source Oral Pulse Rate 75 70 Respiratory Rate 17 18 Blood Pressure 129/71 H 114/72 Blood Pressure Mean 90 86 Pulse Ox 98 97 Oxygen Delivery Method Room Air Positive well nourished, well developed and no apparent distress General Appearance ED: well developed HEENT Reports normocephalic and head/scalp atraumatic Mouth ED: Yes moist mucous membranes normal Eyes PERRL and EOMs intact bilaterally Neck full ROM and supple Chest Wall inspection of chest normal Resp normal respiratory effort and clear to auscultation bilaterally Cardio regular rate and regular rhythm GI soft to palpation, non-tender, non-distended and no masses Back/Spine normal ROM and normal to inspection General Back: CVA tenderness right Extremity normal to inspection and full (more content not included)... Normal [facility] Eosinophil percentageOrdered By: Amanda Gardner on 01-03-2025 Eosinophils/100 WBC (Bld) 1.8 % 0-5 [facility] Epithelial cells.squamous LM Ql (Urine sed)Ordered By: Amanda Gardner on 01-03-2025 Epithelial cells.squamous LM.HPF (Urine sed) [#/Area] 0 /[HPF] 5-10 [facility] Erythrocyte distribution wid th ratioOrdered By: Amanda Gardner on 01-03-2025 Erythrocyte distribution width (RBC) [Ratio] 13.6 % 11.6-14.6 [facility] Erythrocyte distribution wid th standard deviationOrdered By: Amanda Gardner on 01-03-2025 Erythrocyte distribution width (RBC) [Entitic vol] 45.1 fL High 35.1-43.9 [facility] Estimation of creatinine kam aranceOrdered By: Amanda Gardner on 01-03-2025 Estimated Creatinine Clearance Calc 69.74 ml/min 50-250 [facility] GFR/1.73 sq M.predicted stephane g non-blacks MDRD (S/P/Bld) [Vol rate/Area]Ordered By: Amanda Gardner on 01-03-2025 Estimated GFR (MDRD) Non-Af Amer 72 >60 [facility] Comment on above: mL/min/1.73m2 CKD-EP I Creatinine Equation (2020) Glucose Ql (U)Ordered By: Adalgisa Gardner on 01-03-2025 Urine Glucose (UA) Normal mg/dl Normal [facility] Hematocrit Auto (Bld) [Volum e fraction]Ordered By: Amanda Gardner on 01-03-2025 Hematocrit (Bld) [Volume fraction] 37.6 % 37-47 [facility] Hemoglobin measurementOrdere d By: Amanda Gardner on 01-03-2025 Hemoglobin (Bld) [Mass/Vol] 12.6 g/dL 12.0-15.0 [facility] Immature granulocytes/100 WB C Auto (Bld)Ordered By: Amanda Gardner on 01-03-2025 Immature granulocytes/100 WBC (Bld) 0.500 % 0.0-0.9 [facility] Comment on above: IG% - Immature Granu locytes (promyelocytes, myelocytes and metamyelocytes) > 1% indicates that a LEFT SHIFT is Present. Ketones Test strip Ql (U)Ord ered By: Amanda Gardner on 01-03-2025 Ketones Ql (U) Negative Negative [facility] Lymphocytes Auto (Unsp spec) [#/Vol]Ordered By: Amanda Gardner on 01-03-2025 Lymphocytes (Bld) [#/Vol] 1.83 10*3/uL 0.83-4.51 [facility] Lymphocytes/100 WBC Auto (Un sp spec)Ordered By: Amanda Gardner on 01-03-2025 Lymphocytes/100 WBC (Bld) 22.3 % 19-41 [facility] MCV (mean corpuscular volume ) determinationOrdered By: Amanda Gardner on 01-03-2025 MCV (RBC) [Entitic vol] 90.8 fL 81-99 [facility] Mean corpuscular hemoglobin (MCH) determinationOrdered By: Amanda Gardner on 01-03-2025 MCH (RBC) [Entitic mass] 30.4 pg 27.0-32.0 [facility] Mean corpuscular hemoglobin concentration (MCHC) determinationOrdered By: Amanda Gardner on 01-03-2025 MCHC (RBC) [Mass/Vol] 33.5 g/dL 32-36 [facility] Mean platelet volume determi nationOrdered By: Amanda Gardner on 01-03-2025 Platelet mean volume (Bld) [Entitic vol] 11.9 fL 6.2-12.0 [facility] Microscopic analysis of urin e for red blood cells (RBC)Ordered By: Amanda Gardner on 01-03-2025 Urine RBC 0-5 SEEN /hpf 0-5 [facility] Monocyte percentageOrdered B y: Amanda Gardner on 01-03-2025 Monocytes/100 WBC (Bld) 6.5 % 0-10 [facility] Mucus LM Ql (Urine sed)Order ed By: Amanda Gardner on 01-03-2025 Mucus Ql (Urine sed) 0 SEEN /hpf [facility] Neutrophil percentageOrdered By: Amanda Gardner on 01-03-2025 Neutrophils/100 WBC (Bld) 68.2 % 47-70 [facility] Nitrite Test strip Ql (U)Ord ered By: Amanda Gardner on 01-03-2025 Nitrite Ql (U) Negative Negative [facility] Nucleated red blood cell per centageOrdered By: Amanda Gardner on 01-03-2025 Nucleated RBC/100 WBC (Bld) [Ratio] 0 % 0-5 [facility] Platelet countOrdered By: Adalgisa Gardner on 01-03-2025 Platelets (Bld) [#/Vol] 320 10*3/uL 150-450 [facility] Potassium (Unsp spec) [Mass/ Vol]Ordered By: Amanda Gardner on 01-03-2025 Potassium [Moles/Vol] 3.7 mmol/L 3.3-5.1 [facility] Comment on above: Hemolysis present, R esults could be affected. Protein Test strip Ql (U)Ord ered By: Amanda Gardner on 01-03-2025 Protein Ql (U) 30 mg/dl High Negative [facility] RBC Auto (Bld) [#/Vol]Ordere d By: Amanda Gardner on 01-03-2025 RBC (Bld) [#/Vol] 4.14 10*6/uL Low 4.2-5.4 [facility] Serum creatinine measurement (mass/volume)Ordered By: Amanda Gardner on 01-03-2025 Creatinine [Mass/Vol] 0.95 mg/dL 0.70-1.20 [facility] Serum glucose measurement (m ass/volume)Ordered By: Amanda Gardner on 01-03-2025 Glucose [Mass/Vol] 113 mg/dL High 70-99 [facility] Serum or plasma calcium lyla urement (mass/volume)Ordered By: Amanda Gardner on 01-03-2025 Calcium [Mass/Vol] 9.2 mg/dL 7.6-11.0 [facility] Serum or plasma urea nitroge n measurement (mass/volume)Ordered By: Amanda Gardner on 01-03-2025 Urea nitrogen [Mass/Vol] 14 mg/dL 4-19 [facility] Sodium levelOrdered By: Manuel Gardner on 01-03-2025 Sodium [Moles/Vol] 137 mmol/L 133-145 [facility] Urinalysis, Completeon 01-03 RBC 0-5 SEEN Normal 0-5 [facility] Comment on above: Order Comment: CLEAN CATCH Performed By: #### L 400.0001 #### [facility] [address] [place], [place], [id number] BACTERIA 2+ /hpf Normal None Seen [facility] Comment on above: Order Comment: CLEAN CATCH Performed By: #### L 400.0001 #### [facility] [address] [place], [place], [id number] EPI,SQUAMOUS 0-5 SEEN Normal 5-10 [facility] Comment on above: Order Comment: CLEAN CATCH Performed By: #### L 400.0001 #### [facility] [address] [place], [address] Mucus Ql (Urine sed) 0 SEEN Normal [facility] Comment on above: Order Comment: CLEAN CATCH Performed By: #### L 400.0001 #### [facility] [address] [place], [place], [id number] WBC 0 SEEN Normal 0-5 [facility] Comment on above: Order Comment: CLEAN CATCH Performed By: #### L 400.0001 #### [facility] [address] [place], [place], [id number] Urine blood detectionOrdered By: Amanda Gardner on 01-03-2025 Urine Occult Blood 10 /ul High Negative [facility] Urine clarityOrdered By: Gucci Gardner on 01-03-2025 Clarity (U) Sl. Cloudy Clear [facility] Urine color determinationOrd ered By: Amanda Gardner on 01-03-2025 Color (U) Yellow Yellow [facility] Urine leukocyte esterase det ection by dipstickOrdered By: Amanda Gardner on 01-03-2025 Leukocyte esterase Test strip Ql (U) Negative Negative [facility] Urine pHOrdered By: Delfina Gardner on 01-03-2025 pH (U) 6.0 [pH] 5.0 - 8.0 [facility] Urine sediment bacteria coun t by microscopy (number/high power field)Ordered By: Amanda Gardner on 01-03-2025 Bacteria LM.HPF (Urine sed) [#/Area] 2 /[HPF] None Seen [facility] Urine specific gravity measu rementOrdered By: Amanda Gardner on 01-03-2025 Specific gravity (U) [Rel density] 1.020 1.002-1.030 [facility] Urobilinogen Ql (U)Ordered B y: Amanda Gardner on 01-03-2025 Urine Urobilinogen Normal mg/dl Normal [facility] White blood cell (WBC) count Ordered By: Amanda Gardner on 01-03-2025 WBC (Bld) [#/Vol] 8.2 10*3/uL 4.4-11.0 [facility] White blood cell countOrdere d By: Amanda Gardner on 01-03-2025 Urine WBC 0 SEEN /hpf 0-5 [facility] CT HEAD OR BRAIN W/O CONTRAS Ton 12-09-2024 CT HEAD OR BRAIN W/O CONTRAST ORIGINAL HISTORY: Fall COMPARISON: 08 April 2020 TECHNIQUE: Routine noncontrast head CT, with sagittal and coronal reconstructions. This exam was performed according to our departmental dose optimization program, and includes the following measures where applicable: automated exposure control, adjustment of the mAs and/or kVp according to patient size and/or exam, and an iterative reconstruction algorithm. FINDINGS: The ventricles and sulci are normal in size and configuration. There are no abnormal intra or extra-axial fluid collections. Rob-white matter differentiation is maintained. The calvaria and the bones of the base of the skull are intact. IMPRESSION: Normal examination. Interpreted by: Hollie Rutledge MD Preliminary Report By: Hollie Rutledge MD Electronically signed By Hollie Rutledge MD Dictated Date: 12/09/2024 3:00:24 PM Prelim Date: 12/09/2024 3:01:14 PM Sign Date: 12/09/2024 3:01:14 PM Ordering Provider: DOV MEADE [facility] CT SPINE CERVICAL W/O CONTRA STon 12-09-2024 CT SPINE CERVICAL W/O CONTRAST ORIGINAL EXAMINATION: CT OF THE CERVICAL SPINE WITHOUT CONTRAST 12/09/2024 2:36 pm TECHNIQUE: CT of the cervical spine was performed without the administration of intravenous contrast. Multiplanar reformatted images are provided for review. Automated exposure control, iterative reconstruction, and/or weight based adjustment of the mA/kV was utilized to reduce the radiation dose to as low as reasonably achievable. COMPARISON: None. HISTORY: ORDERING SYSTEM PROVIDED HISTORY: Reason for Exam: fall at home, loss of consciousness 12/07 with dizziness. Neck pain worse FINDINGS: BONES/ALIGNMENT: There is C5-C6-C7 ACDF with plate, vertebral body screws, intervertebral cages. The hardware is grossly intact. There is lucency circumscribing the vertebral body screws at C6 and C7, and the left screw at C5 which may be compatible with loosening. There is 5 mm anterior translation of the plate at C7 level, with a gap between the plate and anterior vertebral body. The superior plate remains apposed to the anterior C5 vertebral body. There is no acute vertebral compression fracture or dislocation of the cervical spine. DEGENERATIVE CHANGES: C2-C3: There is no significant disc protrusion, spinal canal stenosis or neural foraminal narrowing. C3-C4: There is no significant disc protrusion, spinal canal stenosis or neural foraminal narrowing. C4-C5: There is 2 mm disc protrusion. There is no central canal or neuroforaminal stenosis. C5-C6: There is partially obscuring metallic streak artifact. There is no osseous central canal stenosis. There is mild-moderate uncovertebral and facet hypertrophy. There is mild left neuroforaminal stenosis. C6-C7: There is partially obscuring metallic streak artifact. There is no gross osseous central canal stenosis. There is mild-moderate uncovertebral and facet hypertrophy. There is mild-moderate right neuroforaminal stenosis. There is moderate-severe left neuroforaminal stenosis. C7-T1: There is no significant disc protrusion, spinal canal stenosis or neural foraminal narrowing. SOFT TISSUES: There is no prevertebral soft tissue swelling. There is partially obscuring metallic streak artifact. Epiglottis is normal in thickness. Thyroid gland is normal size. Trachea is patent. Esophagus is normal in caliber. There are small cervical nodes. IMPRESSION: 1. C5-C6-C7 ACDF. There is lucency circumscribing the vertebral body screws at C6 and C7, and the left screw at C5 which may be compatible with loosening. There is 5 mm anterior translation of the plate at C7 level, with a gap between the inferior plate and anterior vertebral body. The superior plate remains apposed to the anterior C5 vertebral body. 2. No acute vertebral compression fracture or dislocation of the cervical spine. 3. Degenerative changes as described above. Interpreted by: Epi Romano Preliminary Report By: Epi Romano Electronically signed By Epi Romano Dictated Date: 12/09/2024 3:56:25 PM Prelim Date: 12/09/2024 4:16:52 PM Sign Date: 12/09/2024 4:16:52 PM Ordering Provider: DOV Conteh [facility] Bedside Glucoseon 10-28-2024 FINGERSTICK GLU 121 mg/dL High 74-106 [facility] Comment on above: Result Comment: LASHON CAMPOVERDE OF PATIENT CARE PER NURSING PROTOCOL Performed By: #### L 501.080 #### [facility] Laboratory [address] [place], [address] [facility] deOrdered By: Christo Prasad on 10-28-2024 Bedside Glucose ([facility]) 121 mg/dL High 74-106 [facility] Comment on above: MANAGEMENT OF PATIEN T CARE PER NURSING PROTOCOL MR/POSTOP.ANEon 10-28-2024 MR/POSTOP.ANE [facility] Medical Records Department [address] [place] [address] Anesthesia Postop Eval I 10/28/24 111 MR#: [id number] Acct: [id number] Name: ASHLEY GOODE Rep #: [id number] : 1970 54 From: Jac Mares CRNA PCP: Dr. Dov Meade, DO Status:REG SDC Y Race: C Location: [place] [address] Anesthesia: Postop Eval I Current Vital Signs Temperature: 97 F Pulse Rate: 83 Blood Pressure: 127/75 Respiratory Rate: 16 Pulse Ox: 97 Oxygen Delivery Method: Room Air Assessment Airway patent: Yes Spontaneous unlabored respirations: Yes Mental status: Awake and Calm nausea: No Vomiting: No Anesthesia Complication: No Fluid Hydration Crystalloid volume administer (ml): 500 Total IV fluid infused: 500 Progress Note Anesthesia document: Postop Eval 1 completed: Yes 10/28/241112 Date Jac Mares CRNA Cosigner Signature: Date CC: Signed Normal [facility] MR/[id number] 10-28-2024 MR/POSTOPAN2 [facility] Medical Records Department [address] [place] [address] Anesthesia Postop Eval II 10/28/248 MR#: [id number] Acct: [id number] Name: ASHLEY GOODE Rep #: [id number] : 1970 54 From: Brent Naidu MD PCP: Dr. Dov Meade, DO Status:DEP [facility] Y Race: C Location: [facility] Anesthesia Postop Eval I Sum Postop Eval Completion status Anesthesia document: Postop Eval 1 completed: Yes Anesthesia Postop Eval I Summary Anesthesia Postop Eval I Summary: Anesthesia Postop Eval I: Assessment Summary Airway patent Yes 10/28/24 11:13 POST [email or web address].[email or web address] Spontaneous unlabored Yes 10/28/24 11:13 POST [email or web address] respirations Mental status Awake,Calm 10/28/24 11:13 POST [email or web address].JBLOU nausea No 10/28/24 11:13 POST [email or web address].JBLOU Vomiting No 10/28/24 11:13 POST [email or web address].JBLOU Anesthesia Postop Eval I: Fluid Summary Crystalloid volume administer 500 10/28/24 11:13 POST [email or web address].JBLOU (ml) Colloids volume administered ( ml) Blood Product volume administered (ml) Total IV fluid infused 500 10/28/24 11:13 POST [email or web address].JBLOU Anesthesia Postop Eval I: Summary Notes Anesthesia Complication No 10/28/24 11:13 POST [email or web address].JBLOU Anesthesia Complication Comment: Post-operative progress note Anesthesia: Postop Eval II Evaluation Mental status: Awake and Calm Pain Level: 1 nausea: No Vomiting: No Complications Anesthesia Complication: No 10/28/242127 Date Brent Naidu MD Cosigner Signature: Date CC: Signed Normal [facility] Operative Reporton 5 Operative Report [facility] Medical Records Department [address] [place] [address] Operative Report 10/28/24 1051 MR#: [id number] Acct: [id number] Name: ASHLEY GOODE Rep #: [id number] : 1970 54 From: Christo Prasad DPM PCP: Dr. Dov Meade, DO Status:REG [facility] Location: [place] [address] Problems Associated Problem List Diagnoses (1) Plantar fascial fibromatosis: Operative Report (Standard) Operative Information Date of Procedure: 10/28/24 Pre-Operative Diagnosis: 1) Left foot plantar fasciitis Post-Operative Diagnosis: same Surgery/Procedure Performed: Endoscopic Plantar Fasciotomy to left foot bias binding folder: Yes [employer] Supervisor: oneil ruelas Tasks completed by costumer assistant: Opening, Closing, Opening closing, Dissecting tissue and Insert Trochanter Type of Anesthesia: General RN Documented Start/Stop Times: Operation Date: 10/28/24 10:15 Case Time Into Pre-Op 10/28/24 09:05 Out of Pre-Op 10/28/24 10:06 Anesthesia Start 10/28/24 10:10 Into Room 10/28/24 10:10 Procedure Start 10/28/24 10:29 Procedure End 10/28/24 10:44 Into Recovery 10/28/24 10:50 Procedure Start Time: 10:20 Procedure Stop Time: 10:45 Select all DRAINS/GRAFTS/IMPLANTS that apply: None Special Medications: 10cc 0.5% marcaine plain Estimated Blood Loss: minimal Specimen collected: No Description of surgery: Patient brought back to the operating and placed comfortably in the supine position on the operating table. Well-padded left thigh tourniquet was applied to left lower extremity. Left lower extremity was scrubbed prepped draped in typical aseptic fashion. Once cleared by anesthesia left lower extremity was elevated exsanguinated tourniquet was inflated to 300 mmHg. A small incision linearly was drawn 1 cm distal to the medial calcaneal tubercle along the junction of the dorsal and plantar skin on the medial aspect of the heel this incision was made with a stab incision using a 15 blade through epidermis and dermis into subcutaneous tissue. A spatula was used to identify the tissue planes noting the inferior aspect of the plantar fascial and from medial to lateral a trocar with cannula were inserted and a lateral stab incision was made to allow for complete transection of the plantar fascia. Trocar was removed several cotton swabs were used to remove any interpositional tissue. A scope was then inserted from lateral to medial in the plantar fascial band central was noted. A a triangular blade was inserted from medial to lateral in the medial two thirds of the central band was released and the underlying intrinsic musculature was visualized. The plantar fascia itself was noted to be thickened at this time. The cannula and all instrumentation was removed from the foot the site was flushed with copious amounts of normal sterile saline. Skin closure performed with horizontal mattress 3-0 nylon. 10 cc half percent Marcaine plain were used using local infiltration technique. Site was dressed with Betadine Adaptic 4 x 4's Kerlix and Armando. Patient was transported to PACU vital signs stable and vascular status intact all digits for further monitoring prior to discharge. 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 Patient will maintain protected weightbearing to left lower extremity in cam boot. No complications No pathologic specimens Adequate release of the plantar fascia with visualization of underlying intrinsic musculature including abductor hallucis and flexor digitorum brevis Surgical Findings: As dictated above Complications Complications: No 10/28/24 1057 Cosigner Signature (if applicable): CC: MARY Prasad; Dr. Dov Meade, DO Signed Normal [facility] BREAST LEFT LIMITEDon BREAST LEFT LIMITED ORIGINAL FROM: [address] [address] PROCEDURE FOR: ASHLEY GOODE [id number] [place] [address] [place] [address] Home: PID#: [id number] Exam#: [id number] : 1970 Age: 54 TO: DOV MEADE D.O. [address] [place] [id number] Fax: NO FAX EXAMINATION: ULTRASOUND OF THE LEFT BREAST 10/26/2024 8:19 am TECHNIQUE: Color flow and rob scale targeted ultrasound of the left breast at 12 o'clock were performed. Permanently stored images were reviewed. COMPARISON: Left breast ultrasound 04/19/2024, mammogram 04/15/2024, January 22, 2015 HISTORY: ORDERING SYSTEM PROVIDED HISTORY: Reason for Exam: abnormal mammogram FINDINGS: In the left breast at 12 o'clock, 4 cm from the nipple, there is a 2.4 cm oval cyst with a thin internal septation, likely a complicated cyst. This is stable and does not demonstrate any abnormal vascularity. No additional sonographic abnormalities are identified. IMPRESSION: Mass likely representing a stable complicated cyst in the left breast at 12 o'clock 4 cm from the nipple and is probably benign. A 6 month follow up left breast ultrasound is recommended to demonstrate stability. The patient will be due for bilateral annual mammography at that time, which should be requested as a bilateral diagnostic mammogram and left breast ultrasound. John zick risk calculations, generated with the history provided, report this patient's 10 year risk and lifetime risk for developing breast cancer at 3.2% and 12.2%, respectively. Based on this assessment tool, if the patient's calculated lifetime risk is below 20%, then the patient is considered at average risk for developing breast cancer. If the patient's calculated lifetime risk is at or above 20%, then the patient is considered high risk for developing breast cancer and may be a candidate for supplemental breast MRI screening in addition to annual mammographic screening per the [employer]. I have personally reviewed the images of this examination and agree with the resident's findings and interpretation. BIRADS: BI-RADS: 3: Probably Benign RECALL: 6 month follow-up RECALL TYPE: Mammo+US LETTER SENT: Probably Benign BI-RADS 3 Interpreted by: Tiny Reyes Preliminary Report By: Clay Momin Electronically signed By Tiny Reyes Dictated Date: 10/26/2024 8:39:52 AM Prelim Date: 10/26/2024 9:45:53 AM Sign Date: 10/26/2024 9:45:53 AM Ordering Provider: DOV MEADE CLINICAL: 6 MONTH FOLLOW-UP. Huc: AMNA ESTES RT,RDMS,RVT,RDCS letter sent: Probably Benign BI-RADS 3 Ultrasound BI-RADS: 3 Probably benign Normal [facility] US BREAST LEFT LIMITEDon US BREAST LEFT LIMITED ORIGINAL FROM: [facility] [address] [place] [address] PROCEDURE FOR: ASHLEY GOODE [address] [place] [address] Home: PID#: [id number] Exam#: [id number] : 1970 Age: 53 TO: DOV MEADE [address] [place] [address] Fax: NO FAX EXAMINATION: ULTRASOUND OF THE LEFT BREAST 04/19/2024 8:59 am TECHNIQUE: Color flow and rob scale targeted ultrasound of the left breast 12 o'clock were performed. Permanently stored images were reviewed. COMPARISON: 04/15/2024, 02/10/2018 HISTORY: ORDERING SYSTEM PROVIDED HISTORY: Reason for Exam: abn. mammo Left breast mass 12 o'clock FINDINGS: There is a 2.3 cm complicated cyst in the left breast at 12 o'clock. There are nonmobile internal echoes. This correlates with the mammographic finding. There is no vascularity present. IMPRESSION: The 2.3 cm complicated cyst in the left breast at 12 o'clock is probably benign. A 6 month follow up left ultrasound is recommended to demonstrate stability. [facility], generated with the history provided, report this patient's 10 year risk and lifetime risk for developing breast cancer at 3.0% and 12.3%, respectively. Based on this assessment tool, if the patient's calculated lifetime risk is below 20%, then the patient is considered at average risk for developing breast cancer. If the patient's calculated lifetime risk is at or above 20%, then the patient is considered high risk for developing breast cancer and may be a candidate for supplemental breast MRI screening in addition to annual mammographic screening per the [employer]. BIRADS: BI-RADS: 3: Probably Benign RECALL: 6 month follow-up RECALL TYPE: Left US LETTER SENT: Probably Benign BI-RADS 3 Interpreted by: Pan Crystal MD Preliminary Report By: Pan Crystal MD Electronically signed By Pan Crystal MD Dictated Date: 04/19/2024 9:43:41 AM Prelim Date: 04/19/2024 9:53:19 AM Sign Date: 04/19/2024 9:53:19 AM Ordering Provider: DOV MEADE CLINICAL: MAMMOGRAPHIC DENSITY LEFT BREAST. Huc: AMNA ESTES RT,RDMS,RVT,RDCS letter sent: Probably Benign BI-RADS 3 Ultrasound BI-RADS: 3 Probably benign Normal [facility] ([place]) MA MAMMOGRAM SCREENING BILAT ERAL W/TOMOon 04-15-2024 MA MAMMOGRAM SCREENING BILATERAL W/DYLAN ORIGINAL FROM: [facility] [address] [place], [place] [address] PROCEDURE FOR: ASHLEY GOODE [address] [place] [address] Home: PID#: [id number] Exam#: [id number] : 1970 Age: 53 TO: DVO MEADE D[address] [place] [address] Fax: NO FAX EXAMINATION: SCREENING DIGITAL BILATERAL MAMMOGRAM WITH TOMOSYNTHESIS, 04/15/2024 8:57 am TECHNIQUE: Screening mammography of the bilateral breasts was performed with tomosynthesis. 2D standard and 3D tomosynthesis combination imaging performed through both breasts in the MLO and CC projection. Computer aided detection was utilized in the interpretation of this exam. COMPARISON: 02/10/2018 and 01/22/2015 HISTORY: Breast cancer screening. FINDINGS: BREAST DENSITY: The breasts are heterogeneously dense, which may obscure small masses. In the left breast 12 o'clock, 4 cm from the nipple there is a 1.5 cm mass. There are no other significant masses, calcifications, or other findings. IMPRESSION: Left breast 1 cm mass, ultrasound is recommended to further evaluate. We will contact the patient to arrange for the exam. BIRADS: BI-RADS: 0: Incomplete: Need Additional Imaging Evaluation RECALL: immediate RECALL TYPE: US LETTER SENT: Abnormal-Needs additional work up BI-RADS 0 Interpreted by: Yan Lange MD Preliminary Report By: Yan Lange MD Electronically signed By Yan Lange MD Dictated Date: 04/15/2024 4:03:44 PM Prelim Date: 04/15/2024 4:17:00 PM Sign Date: 04/15/2024 4:17:00 PM Ordering Provider: DOV MEADE Huc: CINDY GUERRERO RT (R)(M) letter sent: Abnormal-Needs additional work up BI-RADS 0 Mammogram BI-RADS: 0 Indeterminate Normal [facility] ([place]) XR CALCANEOUS MINIMUM 2 VIEW S LEFTon 03-25-2024 XR CALCANEOUS MINIMUM 2 VIEWS LEFT ORIGINAL EXAMINATION: TWO XRAY VIEWS OF THE LEFT HEEL/CALCANEUS 03/25/2024 3:50 pm COMPARISON: None. HISTORY: ORDERING SYSTEM PROVIDED HISTORY: Reason for Exam: Planter fasciitis left foot FINDINGS: Small enthesophytes seen at the plantar fascia origin. The subtalar joints are normal. Calcaneocuboid joint is aligned. No fracture. IMPRESSION: Mild enthesopathy at the plantar fascia origin Interpreted by: Broderick Acuña MD Preliminary Report By: Broderick Acuña MD Electronically signed By Broderick Acuña MD Dictated Date: 03/25/2024 4:23:02 PM Prelim Date: 03/25/2024 4:23:30 PM Sign Date: 03/25/2024 4:23:30 PM Ordering Provider: CARROLL Conteh [facility] ([place]) .Auto Diffon 02-26-2024 Basophil, Absolute 0.0 10 3/mcL Normal 0.0-0.2 [facility] ([place]) Comment on above: Performed By: #### T WESTON #### [address] [address] Basophils/100 WBC (Bld) 0.4 % Normal 0.0-2.5 [facility] ([place]) Comment on above: Performed By: #### T GENEVIEVE #### [address] [address] Eosinophil, Absolute 0.3 10 3/mcL Normal 0.0-0.4 [facility] ([place]) Comment on above: Performed By: #### T ROPALBA #### [address] [address] Eosinophils/100 WBC (Bld) 2.5 % Normal 0.0-7.0 [facility] ([place]) Comment on above: Performed By: #### T ROPALBA #### [address] [address] Lymphocyte, Absolute 0.8 10 3/mcL Normal 0.8-3.9 [facility] ([place]) Comment on above: Performed By: #### T [facility] #### [address] [address] Lymphocytes/100 WBC (Bld) 7.3 % Low 10.0-50.0 [facility] ([place]) Comment on above: Performed By: #### T WESTON #### [address] [address] Monocyte, Absolute 0.8 10 3/mcL Normal 0.2-1.0 [facility] ([place]) Comment on above: Performed By: #### T [place] #### [address] [address] Monocytes/100 WBC (Bld) 7.8 % Normal 1.7-13.0 [facility] ([place]) Comment on above: Performed By: #### T [place] #### [address] [address] Neutrophils/100 WBC (Bld) 82.0 % High 37.0-80.0 [facility] ([place]) Comment on above: Performed By: #### T [facility] #### [address] [address] .GFRon 02-26-2024 GFR 76 ml/min/1.73sqm Normal [facility] ([place]) Comment on above: Result Comment: GFR Population mean for , Non- Americans Ages 20-29 = 116 mL/min/1.73 sq.m. Ages 30-39 = 107 mL/min/1.73 sq.m. Ages 40-49 = 99 mL/min/1.73 sq.m. Ages 50-59 = 93 mL/min/1.73 sq.m. Ages 60-69 = 85 mL/min/1.73 sq.m. Ages 70+ = 75 mL/min/1.73 sq.m. Chronic Kidney Disease: Less than 60 mL/min/1.73 square meters End Stage Renal Disease: Less than 15 mL/min/1.73 square meters Performed By: #### G FR, BMP #### [address] [address] GFR Non- 63 ml/min/1.73sqm Normal [facility] ([place]) Comment on above: Result Comment: GFR Population mean for , Non- Americans Ages 20-29 = 116 mL/min/1.73 sq.m. Ages 30-39 = 107 mL/min/1.73 sq.m. Ages 40-49 = 99 mL/min/1.73 sq.m. Ages 50-59 = 93 mL/min/1.73 sq.m. Ages 60-69 = 85 mL/min/1.73 sq.m. Ages 70+ = 75 mL/min/1.73 sq.m. Chronic Kidney Disease: Less than 60 mL/min/1.73 square meters End Stage Renal Disease: Less than 15 mL/min/1.73 square meters Performed By: #### Jinny GARCIA, BMP #### [address] [address] .NEUABSon 02-26-2024 Neutrophil, Absolute 8.6 10 3/mcL High 2.9-6.2 [facility] ([place]) Comment on above: Performed By: #### T [facility] #### [address] [address] BMPon 02-26-2024 BUN/Creatinine Ratio 12 ratio Normal 7-27 [facility] ([place]) Comment on above: Performed By: #### Jinny GARCIA, BMP #### [address] [address] Calcium [Mass/Vol] 9.0 mg/dL Normal 8.4-10.2 [facility] ([place]) Comment on above: Performed By: #### Jinny GARCIA, BMP #### [address] [address] Chloride [Moles/Vol] 101 mmol/L Normal 98-107 [facility] ([place]) Comment on above: Performed By: #### Jinny GARCIA, BMP #### [address] [address] CO2 [Moles/Vol] 28 mmol/L Normal 22-29 [facility] ([place]) Comment on above: Performed By: #### Jinny GARCIA, BMP #### [address] [address] Creatinine [Mass/Vol] 0.94 mg/dL Normal 0.55-1.02 [facility] ([place]) Comment on above: Performed By: #### Jinny GARCIA, BMP #### [address] [address] Electrolyte Balance 10.0 mEq/L Normal 4.0-15.0 [facility] ([place]) Comment on above: Performed By: #### Jinny GARCIA, BMP #### [address] [address] Glucose [Mass/Vol] 116 mg/dL High 70-105 [facility] ([place]) Comment on above: Performed By: #### Jinny GARCIA, BMP #### [address] [address] Potassium [Moles/Vol] 4.2 mmol/L Normal 3.5-5.1 [facility] ([place]) Comment on above: Performed By: #### Jinny GARCIA, BMP #### [address] [address] Sodium [Moles/Vol] 139 mmol/L Normal 136-145 [facility] ([place]) Comment on above: Performed By: #### Jinny GARCIA, BMP #### [address] [address] Urea nitrogen [Mass/Vol] 11 mg/dL Normal 7-18 [facility] ([place]) Comment on above: Performed By: #### Jinny GARCIA, BMP #### [address] [address] CBCon 02-26-2024 Erythrocyte distribution width (RBC) [Ratio] 14.6 % High 11.5-14.5 [facility] ([place]) Comment on above: Performed By: #### Jinny GARCIA, BMP #### [address] [address] Hematocrit (Bld) [Volume fraction] 37.2 % Normal 37.0-47.0 [facility] ([place]) Comment on above: Performed By: #### G FR, BMP #### [address] [address] Hgb 12.7 G/dL Normal 12.0-16.0 [facility] ([place]) Comment on above: Performed By: #### Jinny FR, BMP #### [address] [address] MCH (RBC) [Entitic mass] 30.4 pg Normal 27.0-31.2 [facility] ([place]) Comment on above: Performed By: #### Jinny GARCIA, BMP #### [address] [address] MCHC 34.1 G/dL Normal 33.0-37.0 [facility] ([place]) Comment on above: Performed By: #### Jinny GARCIA, BMP #### [address] [address] MCV (RBC) [Entitic vol] 89.1 fL Normal 80.0-94.0 [facility] ([place]) Comment on above: Performed By: #### Jinny GARCIA, BMP #### [address] [address] Platelet 283 10 3/mcL Normal 130-400 [facility] ([place]) Comment on above: Performed By: #### Jinny GARCIA, BMP #### [address] [address] Platelet mean volume (Bld) [Entitic vol] 10.0 fL Normal 7.4-10.4 [facility] ([place]) Comment on above: Performed By: #### Jinny GARCIA, BMP #### [address] [address] RBC 4.17 10 6/mcL Low 4.20-5.40 [facility] ([place]) Comment on above: Performed By: #### Jinny FR, BMP #### Nicole [address] [address] WBC 10.5 10 3/mcL Normal 4.6-10.8 [facility] ([place]) Comment on above: Performed By: #### Jinny GARCIA, BMP #### [address] [place] [id number] [place], [place] [address] LABORATORYOrdered By: SYSTEM SYSTEM on 02-26-2024 Calcium [Mass/Vol] 9.0 mg/dL Normal 8.4 - 10. 2 mg/dL AO ADM SS Chloride [Moles/Vol] 101 mmol/L Normal 98 - 10 7 mmol/L AO ADM SS CO2 [Moles/Vol] 28 mmol/L Normal 22 - 29 mmol/L AO ADM SS Creatinine [Mass/Vol] 0.94 mg/dL Normal 0.55 - 1.02 mg/dL AO ADM SS Electrolyte Balance 10.0 mEq/L Normal 4.0 - 15 .0 mEq/L AO ADM SS GFR/1.73 sq M.predicted among blacks MDRD (S/P/Bld) [Vol rate/Area] 76 ml/min/1.73sqm Invalid Interpretation Code AO Chemistry S Comment on above: Interpretive Data: GFR Population mean for , Non- Americans Ages 20-29 = 116 mL/min/1.73 sq.m. Ages 30-39 = 107 mL/min/1.73 sq.m. Ages 40-49 = 99 mL/min/1.73 sq.m. Ages 50-59 = 93 mL/min/1.73 sq.m. Ages 60-69 = 85 mL/min/1.73 sq.m. Ages 70+ = 75 mL/min/1.73 sq.m. Chronic Kidney Disease: Less than 60 mL/min/1.73 square meters End Stage Renal Disease: Less than 15 mL/min/1.73 square meters GFR/1.73 sq M.predicted among non-blacks MDRD (S/P/Bld) [Vol rate/Area] 63 ml/min/1.73sqm Invalid Interpretation Code AO Chemistry S Comment on above: Interpretive Data: GFR Population mean for , Non- Americans Ages 20-29 = 116 mL/min/1.73 sq.m. Ages 30-39 = 107 mL/min/1.73 sq.m. Ages 40-49 = 99 mL/min/1.73 sq.m. Ages 50-59 = 93 mL/min/1.73 sq.m. Ages 60-69 = 85 mL/min/1.73 sq.m. Ages 70+ = 75 mL/min/1.73 sq.m. Chronic Kidney Disease: Less than 60 mL/min/1.73 square meters End Stage Renal Disease: Less than 15 mL/min/1.73 square meters Glucose [Mass/Vol] 116 mg/dL High 70 - 105 mg/dL AO ADM SS Potassium [Moles/Vol] 4.2 mmol/L Normal 3.5 - 5.1 mmol/L AO ADM SS Sodium [Moles/Vol] 139 mmol/L Normal 136 - 145 mmol/L AO ADM SS Urea nitrogen [Mass/Vol] 11 mg/dL Normal 7 - 18 mg/dL AO ADM SS Urea nitrogen/Creatinine [Mass ratio] 12 ratio Normal 7 - 27 ratio AO ADM SS Basophil, Absolute 0.0 103/mcL Normal 0.0 - 0.2 10^3/mcL AO Workflow SS Basophils/100 WBC (Bld) 0.4 % Normal 0.0 - 2.5 % AO Workflow SS Eosinophil, Absolute 0.3 103/mcL Normal 0.0 - 0 .4 10^3/mcL AO Workflow SS Eosinophils/100 WBC (Bld) 2.5 % Normal 0.0 - 7.0 % AO Workflow SS Erythrocyte distribution width (RBC) [Ratio] 14.6 % High 11.5 - 14.5 % AO Workflow SS Hematocrit (Bld) [Volume fraction] 37.2 % Normal 37.0 - 47.0 % AO Workflow SS Hemoglobin (Bld) [Mass/Vol] 12.7 G/dL Normal 12.0 - 16.0 G/dL AO Workflow SS Lymphocyte, Absolute 0.8 103/mcL Normal 0.8 - 3 .9 10^3/mcL AO Workflow SS Lymphocytes/100 WBC (Bld) 7.3 % Low 10.0 - 50.0 % AO Workflow SS MCH (RBC) [Entitic mass] 30.4 pg Normal 27.0 - 31.2 pg AO Workflow SS MCHC 34.1 G/dL Normal 33.0 - 37.0 G/dL AO Workflow SS MCV (RBC) [Entitic vol] 89.1 fL Normal 80.0 - 94.0 fL AO Workflow SS Monocyte, Absolute 0.8 103/mcL Normal 0.2 - 1.0 10^3/mcL AO Workflow SS Monocytes/100 WBC (Bld) 7.8 % Normal 1.7 - 13.0 % AO Workflow SS Neutrophil, Absolute 8.6 103/mcL High 2.9 - 6 .2 10^3/mcL AO Workflow SS Neutrophils/100 WBC (Bld) 82.0 % High 37.0 - 80.0 % AO Workflow SS Platelet mean volume (Bld) [Entitic vol] 10.0 fL Normal 7.4 - 10.4 fL AO Workflow SS Platelets (Bld) [#/Vol] 283 103/mcL Normal 130 - 400 10^3/mcL AO Workflow SS RBC (Bld) [#/Vol] 4.17 106/mcL Low 4.20 - 5.4 0 10^6/mcL AO Workflow SS WBC (Bld) [#/Vol] 10.5 103/mcL Normal 4.6 - 10.8 10^3/mcL AO Workflow SS .Auto Diffon 02-24-2024 Basophil, Absolute 0.0 10 3/mcL Normal 0.0-0.2 [facility] ([place]) Comment on above: Performed By: #### G FR, ANEU, CBC, MORPH, ADIFF, BMP #### [address] [address] Basophils/100 WBC (Bld) 0.2 % Normal 0.0-2.5 [facility] ([place]) Comment on above: Performed By: #### G FR, ANEU, CBC, MORPH, ADIFF, BMP #### [address] [address] Eosinophil, Absolute 0.0 10 3/mcL Normal 0.0-0.4 [facility] ([place]) Comment on above: Performed By: #### G FR, ANEU, CBC, MORPH, ADIFF, BMP #### [address] [address] Eosinophils/100 WBC (Bld) 0.0 % Normal 0.0-7.0 [facility] ([place]) Comment on above: Performed By: #### G FR, ANEU, CBC, MORPH, ADIFF, BMP #### [address] [address] Lymphocyte, Absolute 0.7 10 3/mcL Low 0.8-3.9 [facility] ([place]) Comment on above: Performed By: #### G FR, ANEU, CBC, MORPH, ADIFF, BMP #### [address] [address] Lymphocytes/100 WBC (Bld) 5.2 % Low 10.0-50.0 [facility] ([place]) Comment on above: Performed By: #### G FR, ANEU, CBC, MORPH, ADIFF, BMP #### [address] [address] Monocyte, Absolute 0.5 10 3/mcL Normal 0.2-1.0 [facility] ([place]) Comment on above: Performed By: #### G FR, ANEU, CBC, MORPH, ADIFF, BMP #### [address] [address] Monocytes/100 WBC (Bld) 3.5 % Normal 1.7-13.0 [facility] ([place]) Comment on above: Performed By: #### G FR, ANEU, CBC, MORPH, ADIFF, BMP #### [address] [address] Neutrophils/100 WBC (Bld) 91.1 % High 37.0-80.0 [facility] ([place]) Comment on above: Performed By: #### G FR, ANEU, CBC, MORPH, ADIFF, BMP #### [address] [address] .GFRon 02-24-2024 GFR Non- 61 ml/min/1.73sqm Normal [facility] ([place]) Comment on above: Result Comment: GFR Population mean for , Non- Americans Ages 20-29 = 116 mL/min/1.73 sq.m. Ages 30-39 = 107 mL/min/1.73 sq.m. Ages 40-49 = 99 mL/min/1.73 sq.m. Ages 50-59 = 93 mL/min/1.73 sq.m. Ages 60-69 = 85 mL/min/1.73 sq.m. Ages 70+ = 75 mL/min/1.73 sq.m. Chronic Kidney Disease: Less than 60 mL/min/1.73 square meters End Stage Renal Disease: Less than 15 mL/min/1.73 square meters Performed By: #### G FR, ANEU, CBC, MORPH, ADIFF, BMP #### [address] [address] GFR 74 ml/min/1.73sqm Normal [facility] ([place]) Comment on above: Result Comment: GFR Population mean for , Non- Americans Ages 20-29 = 116 mL/min/1.73 sq.m. Ages 30-39 = 107 mL/min/1.73 sq.m. Ages 40-49 = 99 mL/min/1.73 sq.m. Ages 50-59 = 93 mL/min/1.73 sq.m. Ages 60-69 = 85 mL/min/1.73 sq.m. Ages 70+ = 75 mL/min/1.73 sq.m. Chronic Kidney Disease: Less than 60 mL/min/1.73 square meters End Stage Renal Disease: Less than 15 mL/min/1.73 square meters Performed By: #### G FR, ANEU, CBC, MORPH, ADIFF, BMP #### [address] [address] .Morphon 02-24-2024 Platelet Estimate Normal Normal [facility] ([place]) Comment on above: Performed By: #### G FR, ANEU, CBC, MORPH, ADIFF, BMP #### [address] [address] .NEUABSon 02-24-2024 Neutrophil, Absolute 12.0 10 3/mcL High 2.9-6.2 [facility] ([place]) Comment on above: Performed By: #### G FR, ANEU, CBC, MORPH, ADIFF, BMP #### [address] [address] BMPon 02-24-2024 BUN/Creatinine Ratio 10 ratio Normal 7-27 [facility] ([place]) Comment on above: Performed By: #### G FR, ANEU, CBC, MORPH, ADIFF, BMP #### [address] [address] Calcium [Mass/Vol] 8.4 mg/dL Normal 8.4-10.2 [facility] ([place]) Comment on above: Performed By: #### G FR, ANEU, CBC, MORPH, ADIFF, BMP #### [address] [address] Chloride [Moles/Vol] 100 mmol/L Normal 98-107 [facility] ([place]) Comment on above: Performed By: #### G FR, ANEU, CBC, MORPH, ADIFF, BMP #### [address] [address] CO2 [Moles/Vol] 26 mmol/L Normal 22-29 [facility] ([place]) Comment on above: Performed By: #### G FR, ANEU, CBC, MORPH, ADIFF, BMP #### [address] [address] Creatinine [Mass/Vol] 0.96 mg/dL Normal 0.55-1.02 [facility] ([place]) Comment on above: Performed By: #### G FR, ANEU, CBC, MORPH, ADIFF, BMP #### [address] [address] Electrolyte Balance 8.0 mEq/L Normal 4.0-15.0 [facility] ([place]) Comment on above: Performed By: #### G FR, ANEU, CBC, MORPH, ADIFF, BMP #### [address] [address] Glucose [Mass/Vol] 128 mg/dL High 70-105 [facility] ([place]) Comment on above: Performed By: #### G FR, ANEU, CBC, MORPH, ADIFF, BMP #### [address] [address] Potassium [Moles/Vol] 4.2 mmol/L Normal 3.5-5.1 [facility] ([place]) Comment on above: Performed By: #### G FR, ANEU, CBC, MORPH, ADIFF, BMP #### [address] [address] Sodium [Moles/Vol] 134 mmol/L Low 136-145 [facility] ([place]) Comment on above: Performed By: #### G FR, ANEU, CBC, MORPH, ADIFF, BMP #### [place] [address] Urea nitrogen [Mass/Vol] 10 mg/dL Normal 7-18 [facility] ([place]) Comment on above: Performed By: #### G FR, ANEU, CBC, MORPH, ADIFF, BMP #### [place] [address] CBCon 02-24-2024 Erythrocyte distribution width (RBC) [Ratio] 14.2 % Normal 11.5-14.5 [facility] ([place]) Comment on above: Performed By: #### G FR, ANEU, CBC, MORPH, ADIFF, BMP #### [place] [address] Hematocrit (Bld) [Volume fraction] 36.1 % Low 37.0-47.0 [facility] ([place]) Comment on above: Performed By: #### G FR, ANEU, CBC, MORPH, ADIFF, BMP #### [place] [address] Hgb 12.4 G/dL Normal 12.0-16.0 [facility] ([place]) Comment on above: Performed By: #### G FR, ANEU, CBC, MORPH, ADIFF, BMP #### [place] [address] MCH (RBC) [Entitic mass] 30.1 pg Normal 27.0-31.2 [facility] ([place]) Comment on above: Performed By: #### G FR, ANEU, CBC, MORPH, ADIFF, BMP #### [place] [address] MCHC 34.2 G/dL Normal 33.0-37.0 [facility] ([place]) Comment on above: Performed By: #### G FR, ANEU, CBC, MORPH, ADIFF, BMP #### [place] [address] MCV (RBC) [Entitic vol] 88.0 fL Normal 80.0-94.0 [facility] ([place]) Comment on above: Performed By: #### G FR, ANEU, CBC, MORPH, ADIFF, BMP #### [address] [address] Platelet 261 10 3/mcL Normal 130-400 [facility] ([place]) Comment on above: Performed By: #### G FR, ANEU, CBC, MORPH, ADIFF, BMP #### [address] [address] Platelet mean volume (Bld) [Entitic vol] 9.9 fL Normal 7.4-10.4 [facility] ([place]) Comment on above: Performed By: #### G FR, ANEU, CBC, MORPH, ADIFF, BMP #### [address] [address] RBC 4.11 10 6/mcL Low 4.20-5.40 [facility] ([place]) Comment on above: Performed By: #### G FR, ANEU, CBC, MORPH, ADIFF, BMP #### [address] [address] WBC 13.2 10 3/mcL High 4.6-10.8 [facility] ([place]) Comment on above: Performed By: #### G FR, ANEU, CBC, MORPH, ADIFF, BMP #### [address] [address] LABORATORYOrdered By: SYSTEM SYSTEM on 02-24-2024 Basophil, Absolute 0.0 103/mcL Normal 0.0 - 0.2 10^3/mcL AO Workflow SS Basophils/100 WBC (Bld) 0.2 % Normal 0.0 - 2.5 % AO Workflow SS Calcium [Mass/Vol] 8.4 mg/dL Normal 8.4 - 10. 2 mg/dL AO ADM SS Chloride [Moles/Vol] 100 mmol/L Normal 98 - 10 7 mmol/L AO ADM SS CO2 [Moles/Vol] 26 mmol/L Normal 22 - 29 mmol/L AO ADM SS Creatinine [Mass/Vol] 0.96 mg/dL Normal 0.55 - 1.02 mg/dL AO ADM SS Electrolyte Balance 8.0 mEq/L Normal 4.0 - 15 .0 mEq/L AO ADM SS Eosinophil, Absolute 0.0 103/mcL Normal 0.0 - 0 .4 10^3/mcL AO Workflow SS Eosinophils/100 WBC (Bld) 0.0 % Normal 0.0 - 7.0 % AO Workflow SS Erythrocyte distribution width (RBC) [Ratio] 14.2 % Normal 11.5 - 14.5 % AO Workflow SS GFR/1.73 sq M.predicted among blacks MDRD (S/P/Bld) [Vol rate/Area] 74 ml/min/1.73sqm Invalid Interpretation Code AO Chemistry S Comment on above: Interpretive Data: GFR Population mean for , Non- Americans Ages 20-29 = 116 mL/min/1.73 sq.m. Ages 30-39 = 107 mL/min/1.73 sq.m. Ages 40-49 = 99 mL/min/1.73 sq.m. Ages 50-59 = 93 mL/min/1.73 sq.m. Ages 60-69 = 85 mL/min/1.73 sq.m. Ages 70+ = 75 mL/min/1.73 sq.m. Chronic Kidney Disease: Less than 60 mL/min/1.73 square meters End Stage Renal Disease: Less than 15 mL/min/1.73 square meters GFR/1.73 sq M.predicted among non-blacks MDRD (S/P/Bld) [Vol rate/Area] 61 ml/min/1.73sqm Invalid Interpretation Code AO Chemistry S Comment on above: Interpretive Data: GFR Population mean for , Non- Americans Ages 20-29 = 116 mL/min/1.73 sq.m. Ages 30-39 = 107 mL/min/1.73 sq.m. Ages 40-49 = 99 mL/min/1.73 sq.m. Ages 50-59 = 93 mL/min/1.73 sq.m. Ages 60-69 = 85 mL/min/1.73 sq.m. Ages 70+ = 75 mL/min/1.73 sq.m. Chronic Kidney Disease: Less than 60 mL/min/1.73 square meters End Stage Renal Disease: Less than 15 mL/min/1.73 square meters Glucose [Mass/Vol] 128 mg/dL High 70 - 105 mg/dL AO ADM SS Hematocrit (Bld) [Volume fraction] 36.1 % Low 37.0 - 47.0 % AO Workflow SS Hemoglobin (Bld) [Mass/Vol] 12.4 G/dL Normal 12.0 - 16.0 G/dL AO Workflow SS Lymphocyte, Absolute 0.7 103/mcL Low 0.8 - 3 .9 10^3/mcL AO Workflow SS Lymphocytes/100 WBC (Bld) 5.2 % Low 10.0 - 50.0 % AO Workflow SS MCH (RBC) [Entitic mass] 30.1 pg Normal 27.0 - 31.2 pg AO Workflow SS MCHC 34.2 G/dL Normal 33.0 - 37.0 G/dL AO Workflow SS MCV (RBC) [Entitic vol] 88.0 fL Normal 80.0 - 94.0 fL AO Workflow SS Monocyte, Absolute 0.5 103/mcL Normal 0.2 - 1.0 10^3/mcL AO Workflow SS Monocytes/100 WBC (Bld) 3.5 % Normal 1.7 - 13.0 % AO Workflow SS Neutrophil, Absolute 12.0 103/mcL High 2.9 - 6 .2 10^3/mcL AO Workflow SS Neutrophils/100 WBC (Bld) 91.1 % High 37.0 - 80.0 % AO Workflow SS Platelet mean volume (Bld) [Entitic vol] 9.9 fL Normal 7.4 - 10.4 fL AO Workflow SS Platelets (Bld) [#/Vol] 261 103/mcL Normal 130 - 400 10^3/mcL AO Workflow SS Potassium [Moles/Vol] 4.2 mmol/L Normal 3.5 - 5.1 mmol/L AO ADM SS RBC (Bld) [#/Vol] 4.11 106/mcL Low 4.20 - 5.4 0 10^6/mcL AO Workflow SS Sodium [Moles/Vol] 134 mmol/L Low 136 - 145 mmol/L AO ADM SS Urea nitrogen [Mass/Vol] 10 mg/dL Normal 7 - 18 mg/dL AO ADM SS Urea nitrogen/Creatinine [Mass ratio] 10 ratio Normal 7 - 27 ratio AO ADM SS WBC (Bld) [#/Vol] 13.2 103/mcL High 4.6 - 10.8 10^3/mcL AO Workflow SS Troponin I.cardiac DL <= 0.01 ng/mL [Mass/Vol] 10 ng/L Normal 0 - 51 ng/L AO ADM SS Comment on above: Interpretive Data: H igh Sensitive Troponin I Reference Ranges: Female: 0-51 ng/L Male: 0-76 ng/L Testing performed on [employer] EX[employer] using a homogeneous sandwich chemiluminescent immunoassay based on [employer] technology. LABORATORYOrdered By: Bartolo Varma on 02-24-2024 Platelet Estimate Normal (02/24/24 9:39 PM) Normal AO Hematology S LABORATORYOrdered By: Vicente Palacios on 02-24-2024 HCG ( test) Ql Negative (02/24/24 8:08 AM) Normal AO Manual Urine SS test (u) int Not detected Invalid Interpretation Code AO Manual Urine SS PREGUon 02-24-2024 HCG ( test) Ql (U) Negative Normal [facility] ([place]) Comment on above: Performed By: #### T GENEVIEVE #### [place] [address] test (u) int Not detected Invalid Interpretation Code [facility] ([place]) Comment on above: Performed By: #### T WESTON #### [address] [address] TROPHSon 02-24-2024 High Sensitivity Troponin I 10 ng/L Normal 0-51 [facility] ([place]) Comment on above: Result Comment: High Sensitive Troponin I Reference Ranges: Female: 0-51 ng/L Male: 0-76 ng/L Testing performed on [employer] using a homogeneous sandwich chemiluminescent immunoassay based on [employer] technology. Performed By: #### T GENEVIEVE #### [address] [address] XR CHEST 1 VIEWon 02-24-2024 XR CHEST 1 VIEW ORIGINAL EXAMINATION: ONE XRAY VIEW OF THE CHEST02/24/2024 9:28 pm CHEST ONE VIEW AP/PA EXAM DESCRIPTION: COMPARISON: Chest, February 11, 2024 HISTORY: ORDERING SYSTEM PROVIDED HISTORY: Reason for Exam: Pt feel chest pain and pressure. hypoxia FINDINGS: Single AP radiograph of the chest was obtained. The lungs are clear without evidence of focal consolidation, mass, pleural effusion, or pneumothorax. The cardiomediastinal silhouette is unremarkable. The bones and soft tissues are unremarkable. IMPRESSION: No radiographic evidence of acute cardiopulmonary disease. Interpreted by: Pan Henderson MD Preliminary Report By: Pan Henderson MD Electronically signed By Pan Henderson MD Dictated Date: 02/24/2024 9:49:33 PM Prelim Date: 02/24/2024 9:50:34 PM Sign Date: 02/24/2024 9:50:34 PM Ordering Provider: SUSIE DOMINGUEZ Normal [facility]) XR FLUORO > 2 HRS TECH TIMEo n 02-24-2024 XR FLUORO > 2 HRS TECH TIME ORIGINAL Images acquired, not reported on this accession number. Normal [facility]) .Auto Diffon 02-11-2024 Basophil, Absolute 0.1 10 3/mcL Normal 0.0-0.2 [facility] ([place]) Comment on above: Performed By: #### G FR, ANEU, CBC, MORPH, ADIFF, BMP #### [address] [address] Basophils/100 WBC (Bld) 1.0 % Normal 0.0-2.5 [facility] ([place]) Comment on above: Performed By: #### G FR, ANEU, CBC, MORPH, ADIFF, BMP #### [address] [address] Eosinophil, Absolute 0.1 10 3/mcL Normal 0.0-0.4 [facility] ([place]) Comment on above: Performed By: #### G FR, ANEU, CBC, MORPH, ADIFF, BMP #### [address] [address] Eosinophils/100 WBC (Bld) 1.5 % Normal 0.0-7.0 [facility] ([place]) Comment on above: Performed By: #### G FR, ANEU, CBC, MORPH, ADIFF, BMP #### [address] [address] Lymphocyte, Absolute 1.5 10 3/mcL Normal 0.8-3.9 [facility] ([place]) Comment on above: Performed By: #### G FR, ANEU, CBC, MORPH, ADIFF, BMP #### [address] [address] Lymphocytes/100 WBC (Bld) 19.7 % Normal 10.0-50.0 [facility] ([place]) Comment on above: Performed By: #### G FR, ANEU, CBC, MORPH, ADIFF, BMP #### [address] [address] Monocyte, Absolute 0.4 10 3/mcL Normal 0.2-1.0 [facility] ([place]) Comment on above: Performed By: #### G FR, ANEU, CBC, MORPH, ADIFF, BMP #### [address] [address] Monocytes/100 WBC (Bld) 5.0 % Normal 1.7-13.0 [facility] ([place]) Comment on above: Performed By: #### G FR, ANEU, CBC, MORPH, ADIFF, BMP #### [address] [address] Neutrophils/100 WBC (Bld) 72.8 % Normal 37.0-80.0 [facility] ([place]) Comment on above: Performed By: #### G FR, ANEU, CBC, MORPH, ADIFF, BMP #### [address] [address] .GFRon 02-11-2024 GFR Non- 50 ml/min/1.73sqm Normal [facility] ([place]) Comment on above: Result Comment: GFR Population mean for , Non- Americans Ages 20-29 = 116 mL/min/1.73 sq.m. Ages 30-39 = 107 mL/min/1.73 sq.m. Ages 40-49 = 99 mL/min/1.73 sq.m. Ages 50-59 = 93 mL/min/1.73 sq.m. Ages 60-69 = 85 mL/min/1.73 sq.m. Ages 70+ = 75 mL/min/1.73 sq.m. Chronic Kidney Disease: Less than 60 mL/min/1.73 square meters End Stage Renal Disease: Less than 15 mL/min/1.73 square meters Performed By: #### G FR, ANEU, CBC, MORPH, ADIFF, BMP #### [address] [address] GFR 61 ml/min/1.73sqm Normal [facility] ([place]) Comment on above: Result Comment: GFR Population mean for , Non- Americans Ages 20-29 = 116 mL/min/1.73 sq.m. Ages 30-39 = 107 mL/min/1.73 sq.m. Ages 40-49 = 99 mL/min/1.73 sq.m. Ages 50-59 = 93 mL/min/1.73 sq.m. Ages 60-69 = 85 mL/min/1.73 sq.m. Ages 70+ = 75 mL/min/1.73 sq.m. Chronic Kidney Disease: Less than 60 mL/min/1.73 square meters End Stage Renal Disease: Less than 15 mL/min/1.73 square meters Performed By: #### G FR, ANEU, CBC, MORPH, ADIFF, BMP #### [address] [address] .NEUABSon 02-11-2024 Neutrophil, Absolute 5.3 10 3/mcL Normal 2.9-6.2 [facility] ([place]) Comment on above: Performed By: #### G FR, ANEU, CBC, MORPH, ADIFF, BMP #### [address] [address] APTTon 02-11-2024 aPTT Coag (Bld) [Time] 26.8 s Normal 25.0-35.0 [facility] ([place]) Comment on above: Result Comment: For Heparin anticoagulation therapy, the recommended therapeutic range is: 50.6-87.4 seconds. Patients on heparin therapy may have an extreme result. Performed By: #### G FR, ANEU, CBC, MORPH, ADIFF, BMP #### [address] [address] Heparin dose (APTT) Unknown Normal [facility] ([place]) Comment on above: Performed By: #### G FR, ANEU, CBC, MORPH, ADIFF, BMP #### [address] [address] BMPon 02-11-2024 BUN/Creatinine Ratio 14 ratio Normal 7-27 [facility] ([place]) Comment on above: Performed By: #### G FR, ANEU, CBC, MORPH, ADIFF, BMP #### [address] [address] Calcium [Mass/Vol] 9.6 mg/dL Normal 8.4-10.2 [facility] ([place]) Comment on above: Performed By: #### G FR, ANEU, CBC, MORPH, ADIFF, BMP #### [place] [id number] Chloride [Moles/Vol] 104 mmol/L Normal 98-107 [facility] ([place]) Comment on above: Performed By: #### G FR, ANEU, CBC, MORPH, ADIFF, BMP #### [place] [id number] CO2 [Moles/Vol] 29 mmol/L Normal 22-29 [facility] ([place]) Comment on above: Performed By: #### G FR, ANEU, CBC, MORPH, ADIFF, BMP #### [place] [address] Creatinine [Mass/Vol] 1.14 mg/dL High 0.55-1.02 [facility] ([place]) Comment on above: Performed By: #### G FR, ANEU, CBC, MORPH, ADIFF, BMP #### [address] [address] Electrolyte Balance 10.0 mEq/L Normal 4.0-15.0 [facility] ([place]) Comment on above: Performed By: #### G FR, ANEU, CBC, MORPH, ADIFF, BMP #### [place] [id number] Glucose [Mass/Vol] 127 mg/dL High 70-105 [facility] ([place]) Comment on above: Performed By: #### G FR, ANEU, CBC, MORPH, ADIFF, BMP #### [place] [address] Potassium [Moles/Vol] 3.7 mmol/L Normal 3.5-5.1 [facility] ([place]) Comment on above: Performed By: #### G FR, ANEU, CBC, MORPH, ADIFF, BMP #### [address] [address] Sodium [Moles/Vol] 143 mmol/L Normal 136-145 [facility] ([place]) Comment on above: Performed By: #### G FR, ANEU, CBC, MORPH, ADIFF, BMP #### [address] [address] Urea nitrogen [Mass/Vol] 16 mg/dL Normal 7-18 [facility] ([place]) Comment on above: Performed By: #### G FR, ANEU, CBC, MORPH, ADIFF, BMP #### [address] [address] CBCon 02-11-2024 Erythrocyte distribution width (RBC) [Ratio] 14.2 % Normal 11.5-14.5 [facility] ([place]) Comment on above: Order Comment: Pre-A dmission Testing Performed By: #### G FR, ANEU, CBC, MORPH, ADIFF, BMP #### [address] [address] Hematocrit (Bld) [Volume fraction] 38.4 % Normal 37.0-47.0 [facility] ([place]) Comment on above: Order Comment: Pre-A dmission Testing Performed By: #### G FR, ANEU, CBC, MORPH, ADIFF, BMP #### [address] [address] Hgb 13.0 G/dL Normal 12.0-16.0 [facility] ([place]) Comment on above: Order Comment: Pre-A dmission Testing Performed By: #### G FR, ANEU, CBC, MORPH, ADIFF, BMP #### [address] [address] MCH (RBC) [Entitic mass] 30.0 pg Normal 27.0-31.2 [facility] ([place]) Comment on above: Order Comment: Pre-A dmission Testing Performed By: #### G FR, ANEU, CBC, MORPH, ADIFF, BMP #### [address] [address] MCHC 33.9 G/dL Normal 33.0-37.0 [facility] ([place]) Comment on above: Order Comment: Pre-A dmission Testing Performed By: #### G FR, ANEU, CBC, MORPH, ADIFF, BMP #### [address] [address] MCV (RBC) [Entitic vol] 88.5 fL Normal 80.0-94.0 [facility] ([place]) Comment on above: Order Comment: Pre-A dmission Testing Performed By: #### G FR, ANEU, CBC, MORPH, ADIFF, BMP #### [address] [address] Platelet 316 10 3/mcL Normal 130-400 [facility] ([place]) Comment on above: Order Comment: Pre-A dmission Testing Performed By: #### G FR, ANEU, CBC, MORPH, ADIFF, BMP #### [address] [address] Platelet mean volume (Bld) [Entitic vol] 10.1 fL Normal 7.4-10.4 [facility] ([place]) Comment on above: Order Comment: Pre-A dmission Testing Performed By: #### G FR, ANEU, CBC, MORPH, ADIFF, BMP #### [address] [address] RBC 4.33 10 6/mcL Normal 4.20-5.40 [facility] ([place]) Comment on above: Order Comment: Pre-A dmission Testing Performed By: #### G FR, ANEU, CBC, MORPH, ADIFF, BMP #### [address] [address] WBC 7.3 10 3/mcL Normal 4.6-10.8 [facility] ([place]) Comment on above: Order Comment: Pre-A dmission Testing Performed By: #### G FR, ANEU, CBC, MORPH, ADIFF, BMP #### [place] [id number] [place], [place] [address] LABORATORYOrdered By: Jose A taylor on 02-11-2024 aPTT Coag (PPP) [Time] 26.8 s Normal 25.0 - 35.0 seconds AO [facility] SS Comment on above: Interpretive Data: F or Heparin anticoagulation therapy, the recommended therapeutic range is: 50.6-87.4 seconds. Patients on heparin therapy may have an extreme result. Heparin dose (APTT) Unknown (02/11/24 12:08 PM) Normal AO Coagulation S INR Coag (PPP) [Relative time] 0.9 {INR} Invalid Interpretation Code AO [facility] SS Comment on above: Interpretive Data: [employer] (CHEST, 1992, [id number]) recommended therapeutic range for oral anticoagulant therapy is: LOW RISK: Prophylaxis of venous thrombosis INR: 2.0-3.0 Treatment of pulmonary embolism 2.0-3.0 Prevention of systemic embolism 2.0-3.0 HIGH RISK: Mechanical prosthetic valves 2.5-3.5 PT Coag (PPP) [Time] 10.4 s Normal 9.0 - 1 4.2 seconds AO [facility] SS LABORATORYOrdered By: SYSTEM SYSTEM on 02-11-2024 Basophil, Absolute 0.1 103/mcL Normal 0.0 - 0.2 10^3/mcL AO Workflow SS Basophils/100 WBC (Bld) 1.0 % Normal 0.0 - 2.5 % AO Workflow SS Calcium [Mass/Vol] 9.6 mg/dL Normal 8.4 - 10. 2 mg/dL AO ADM SS Chloride [Moles/Vol] 104 mmol/L Normal 98 - 10 7 mmol/L AO ADM SS CO2 [Moles/Vol] 29 mmol/L Normal 22 - 29 mmol/L AO ADM SS Creatinine [Mass/Vol] 1.14 mg/dL High 0.55 - 1.02 mg/dL AO ADM SS Electrolyte Balance 10.0 mEq/L Normal 4.0 - 15 .0 mEq/L AO ADM SS Eosinophil, Absolute 0.1 103/mcL Normal 0.0 - 0 .4 10^3/mcL AO Workflow SS Eosinophils/100 WBC (Bld) 1.5 % Normal 0.0 - 7.0 % AO Workflow SS Erythrocyte distribution width (RBC) [Ratio] 14.2 % Normal 11.5 - 14.5 % AO Workflow SS GFR/1.73 sq M.predicted among blacks MDRD (S/P/Bld) [Vol rate/Area] 61 ml/min/1.73sqm Invalid Interpretation Code AO Chemistry S Comment on above: Interpretive Data: GFR Population mean for , Non- Americans Ages 20-29 = 116 mL/min/1.73 sq.m. Ages 30-39 = 107 mL/min/1.73 sq.m. Ages 40-49 = 99 mL/min/1.73 sq.m. Ages 50-59 = 93 mL/min/1.73 sq.m. Ages 60-69 = 85 mL/min/1.73 sq.m. Ages 70+ = 75 mL/min/1.73 sq.m. Chronic Kidney Disease: Less than 60 mL/min/1.73 square meters End Stage Renal Disease: Less than 15 mL/min/1.73 square meters GFR/1.73 sq M.predicted among non-blacks MDRD (S/P/Bld) [Vol rate/Area] 50 ml/min/1.73sqm Invalid Interpretation Code AO Chemistry S Comment on above: Interpretive Data: GFR Population mean for , Non- Americans Ages 20-29 = 116 mL/min/1.73 sq.m. Ages 30-39 = 107 mL/min/1.73 sq.m. Ages 40-49 = 99 mL/min/1.73 sq.m. Ages 50-59 = 93 mL/min/1.73 sq.m. Ages 60-69 = 85 mL/min/1.73 sq.m. Ages 70+ = 75 mL/min/1.73 sq.m. Chronic Kidney Disease: Less than 60 mL/min/1.73 square meters End Stage Renal Disease: Less than 15 mL/min/1.73 square meters Glucose [Mass/Vol] 127 mg/dL High 70 - 105 mg/dL AO ADM SS Hematocrit (Bld) [Volume fraction] 38.4 % Normal 37.0 - 47.0 % AO Workflow SS Hemoglobin (Bld) [Mass/Vol] 13.0 G/dL Normal 12.0 - 16.0 G/dL AO Workflow SS Lymphocyte, Absolute 1.5 103/mcL Normal 0.8 - 3 .9 10^3/mcL AO Workflow SS Lymphocytes/100 WBC (Bld) 19.7 % Normal 10.0 - 50.0 % AO Workflow SS MCH (RBC) [Entitic mass] 30.0 pg Normal 27.0 - 31.2 pg AO Workflow SS MCHC 33.9 G/dL Normal 33.0 - 37.0 G/dL AO Workflow SS MCV (RBC) [Entitic vol] 88.5 fL Normal 80.0 - 94.0 fL AO Workflow SS Monocyte, Absolute 0.4 103/mcL Normal 0.2 - 1.0 10^3/mcL AO Workflow SS Monocytes/100 WBC (Bld) 5.0 % Normal 1.7 - 13.0 % AO Workflow SS Neutrophil, Absolute 5.3 103/mcL Normal 2.9 - 6 .2 10^3/mcL AO Workflow SS Neutrophils/100 WBC (Bld) 72.8 % Normal 37.0 - 80.0 % AO Workflow SS Platelet mean volume (Bld) [Entitic vol] 10.1 fL Normal 7.4 - 10.4 fL AO Workflow SS Platelets (Bld) [#/Vol] 316 103/mcL Normal 130 - 400 10^3/mcL AO Workflow SS Potassium [Moles/Vol] 3.7 mmol/L Normal 3.5 - 5.1 mmol/L AO ADM SS RBC (Bld) [#/Vol] 4.33 106/mcL Normal 4.20 - 5.4 0 10^6/mcL AO Workflow SS Sodium [Moles/Vol] 143 mmol/L Normal 136 - 145 mmol/L AO ADM SS Urea nitrogen [Mass/Vol] 16 mg/dL Normal 7 - 18 mg/dL AO ADM SS Urea nitrogen/Creatinine [Mass ratio] 14 ratio Normal 7 - 27 ratio AO ADM SS WBC (Bld) [#/Vol] 7.3 103/mcL Normal 4.6 - 10.8 10^3/mcL AO Workflow SS PROon 02-11-2024 PT Coag (PPP) [Time] 10.4 s Normal 9.0-14.2 [facility] ([place]) Comment on above: Performed By: #### G FR, ANEU, CBC, MORPH, ADIFF, BMP #### Nicole [address] [address] PT International Ratio 0.9 Normal [facility] ([place]) Comment on above: Result Comment: The [employer] (CHEST, 1992, 102:312S-25S) recommended therapeutic range for oral anticoagulant therapy is: LOW RISK: Prophylaxis of venous thrombosis INR: 2.0-3.0 Treatment of pulmonary embolism 2.0-3.0 Prevention of systemic embolism 2.0-3.0 HIGH RISK: Mechanical prosthetic valves 2.5-3.5 Performed By: #### G FR, ANEU, CBC, MORPH, ADIFF, BMP #### [facility] [place] [address] [place], [place] [address] XR CHEST 2 VIEWSon 4 XR CHEST 2 VIEWS ORIGINAL EXAMINATION: TWO XRAY VIEWS OF THE CHEST 02/11/2024 12:14 pm COMPARISON: 01/28/2018 HISTORY: ORDERING SYSTEM PROVIDED HISTORY: Reason for Exam: Pre-admission testing FINDINGS: The lungs are without acute focal process. There is no effusion or pneumothorax. The cardiomediastinal silhouette is without acute process. The osseous structures are without acute process. IMPRESSION: No acute process. Interpreted by: Broderick Don DO Preliminary Report By: Broderick Don DO Electronically signed By Broderick Don DO Dictated Date: 02/11/2024 4:53:20 PM Prelim Date: 02/11/2024 4:53:32 PM Sign Date: 02/11/2024 4:53:32 PM Ordering Provider: UCHE RUBIN Normal [facility]) RFon 11-08-2023 Rheumatoid Factor <6.0 Normal <=5.9 [facility]) Comment on above: Result Comment: RF I gM Antibody by Enzyme Immunoassay: Negative < or = 6 Positive > 6 A positive result indicates the presence of RF antibodies and suggests the possibility of rheumatoid arthritis. A negative result indicates no RF IgM antibody or levels below the negative cut-off of the assay. Results of this assay should be used in conjunction with clinical findings and other serological tests. These results were obtained with the [employer] QUANTA Lite RF IgM BOUCHRA. RF IgM values obtained with different manufacturers' assay methods may not be used interchangeably. The magnitude of the reported IgM levels cannot be correlated to an endpoint titer. Performed By: #### G FR, BMP #### [address] [address] ANAon 11-06-2023 Nuclear Ab IF (S) [Titer] 40 {titer} Normal Neg 40 [facility] ([place]) Comment on above: Result Comment: JEAN-PIERRE Screen and Titer methodology is an immunofluorescent technique utilizing Hep2 Substrate. Performed By: #### G FR, BMP #### [address] [address] .Auto Diffon 11-05-2023 Basophil, Absolute 0.1 10 3/mcL Normal 0.0-0.2 [facility] ([place]) Comment on above: Performed By: #### Jinny FR, BMP #### [address] [address] Basophils/100 WBC (Bld) 0.9 % Normal 0.0-2.5 [facility] ([place]) Comment on above: Performed By: #### Jinny FR, BMP #### [address] [address] Eosinophil, Absolute 0.1 10 3/mcL Normal 0.0-0.4 [facility] ([place]) Comment on above: Performed By: #### Jinny FR, BMP #### [address] [address] Eosinophils/100 WBC (Bld) 1.8 % Normal 0.0-7.0 [facility] ([place]) Comment on above: Performed By: #### G FR, BMP #### [address] [address] Lymphocyte, Absolute 1.2 10 3/mcL Normal 0.8-3.9 [facility] ([place]) Comment on above: Performed By: #### G FR, BMP #### [address] [address] Lymphocytes/100 WBC (Bld) 15.8 % Normal 10.0-50.0 [facility] ([place]) Comment on above: Performed By: #### G FR, BMP #### [address] [address] Monocyte, Absolute 0.4 10 3/mcL Normal 0.2-1.0 [facility] ([place]) Comment on above: Performed By: #### G FR, BMP #### [address] [address] Monocytes/100 WBC (Bld) 4.8 % Normal 1.7-13.0 [facility] ([place]) Comment on above: Performed By: #### G FR, BMP #### [address] [address] Neutrophils/100 WBC (Bld) 76.7 % Normal 37.0-80.0 [facility] ([place]) Comment on above: Performed By: #### G , BMP #### [address] [address] .GFRon 11-05-2023 GFR 62 ml/min/1.73sqm Normal [facility] ([place]) Comment on above: Result Comment: GFR Population mean for , Non- Americans Ages 20-29 = 116 mL/min/1.73 sq.m. Ages 30-39 = 107 mL/min/1.73 sq.m. Ages 40-49 = 99 mL/min/1.73 sq.m. Ages 50-59 = 93 mL/min/1.73 sq.m. Ages 60-69 = 85 mL/min/1.73 sq.m. Ages 70+ = 75 mL/min/1.73 sq.m. Chronic Kidney Disease: Less than 60 mL/min/1.73 square meters End Stage Renal Disease: Less than 15 mL/min/1.73 square meters Performed By: #### G FR, BMP #### [address] [address] GFR Non- 51 ml/min/1.73sqm Normal [facility] ([place]) Comment on above: Result Comment: GFR Population mean for , Non- Americans Ages 20-29 = 116 mL/min/1.73 sq.m. Ages 30-39 = 107 mL/min/1.73 sq.m. Ages 40-49 = 99 mL/min/1.73 sq.m. Ages 50-59 = 93 mL/min/1.73 sq.m. Ages 60-69 = 85 mL/min/1.73 sq.m. Ages 70+ = 75 mL/min/1.73 sq.m. Chronic Kidney Disease: Less than 60 mL/min/1.73 square meters End Stage Renal Disease: Less than 15 mL/min/1.73 square meters Performed By: #### Jinny GARCIA, BMP #### [address] [address] .NEUABSon 11-05-2023 Neutrophil, Absolute 6.0 10 3/mcL Normal 2.9-6.2 [facility] ([place]) Comment on above: Performed By: #### Jinny GARCIA, BMP #### [address] [address] B12on 11-05-2023 Cobalamin (Vitamin B12) [Mass/Vol] 413 pg/mL Normal 211-911 [facility] ([place]) Comment on above: Performed By: #### Jinny GARCIA, BMP #### [address] [address] BMPon 11-05-2023 BUN/Creatinine Ratio 12 ratio Normal 7-27 [facility] ([place]) Comment on above: Performed By: #### Jinny GARCIA, BMP #### [address] [address] Calcium [Mass/Vol] 9.2 mg/dL Normal 8.4-10.2 [facility] ([place]) Comment on above: Performed By: #### Jinny GARCIA, BMP #### [address] [address] Chloride [Moles/Vol] 104 mmol/L Normal 98-107 [facility] ([place]) Comment on above: Performed By: #### Jinny GARCIA, BMP #### [address] [address] CO2 [Moles/Vol] 28 mmol/L Normal 22-29 [facility] ([place]) Comment on above: Performed By: #### Jinny GARCIA, BMP #### [address] [address] Creatinine [Mass/Vol] 1.12 mg/dL High 0.55-1.02 [facility] ([place]) Comment on above: Performed By: #### G FR, BMP #### [address] [address] Electrolyte Balance 12.0 mEq/L Normal 4.0-15.0 [facility] ([place]) Comment on above: Performed By: #### G FR, BMP #### [address] [address] Glucose [Mass/Vol] 124 mg/dL High 70-105 [facility] ([place]) Comment on above: Performed By: #### Jinny GARCIA, BMP #### [address] [address] Potassium [Moles/Vol] 4.2 mmol/L Normal 3.5-5.1 [facility] ([place]) Comment on above: Performed By: #### G FR, BMP #### [address] [address] Sodium [Moles/Vol] 144 mmol/L Normal 136-145 [facility] ([place]) Comment on above: Performed By: #### Jinny GARCIA, BMP #### [address] [address] Urea nitrogen [Mass/Vol] 13 mg/dL Normal 7-18 [facility] ([place]) Comment on above: Performed By: #### G FR, BMP #### [address] [address] CBCon 11-05-2023 Erythrocyte distribution width (RBC) [Ratio] 15.1 % High 11.5-14.5 [facility] ([place]) Comment on above: Performed By: #### C BC, ADIFF, GFR, ESR, BMP, ANEU #### [address] [address] #### JEAN-PIERRE, CRPHS, RF, B12 #### [address] [address] Hematocrit (Bld) [Volume fraction] 39.0 % Normal 37.0-47.0 [facility] ([place]) Comment on above: Performed By: #### C BC, ADIFF, GFR, ESR, BMP, ANEU #### [place] [address] #### JEAN-PIERRE, CRPHS, RF, B12 #### [place] [address] Hgb 13.0 G/dL Normal 12.0-16.0 [facility] ([place]) Comment on above: Performed By: #### C BC, ADIFF, GFR, ESR, BMP, ANEU #### [place] [address] #### JEAN-PIERRE, CRPHS, RF, B12 #### [place] [address] MCH (RBC) [Entitic mass] 29.6 pg Normal 27.0-31.2 [facility] ([place]) Comment on above: Performed By: #### C BC, ADIFF, GFR, ESR, BMP, ANEU #### [place] [address] #### JEAN-PIERRE, CRPHS, RF, B12 #### [place] [address] MCHC 33.4 G/dL Normal 33.0-37.0 [facility] ([place]) Comment on above: Performed By: #### C BC, ADIFF, GFR, ESR, BMP, ANEU #### [place] [address] #### JEAN-PIERRE, CRPHS, RF, B12 #### [place] [address] MCV (RBC) [Entitic vol] 88.7 fL Normal 80.0-94.0 [facility] ([place]) Comment on above: Performed By: #### C BC, ADIFF, GFR, ESR, BMP, ANEU #### [place] [address] #### JEAN-PIERRE, CRPHS, RF, B12 #### [place] [address] Platelet 310 10 3/mcL Normal 130-400 [facility] ([place]) Comment on above: Performed By: #### C BC, ADIFF, GFR, ESR, BMP, ANEU #### [place] [address] #### JEAN-PIERRE, CRPHS, RF, B12 #### [address] [address] Platelet mean volume (Bld) [Entitic vol] 10.0 fL Normal 7.4-10.4 [facility] ([place]) Comment on above: Performed By: #### C BC, ADIFF, GFR, ESR, BMP, ANEU #### [place] [address] #### JEAN-PIERRE, CRPHS, RF, B12 #### [place] [address] RBC 4.39 10 6/mcL Normal 4.20-5.40 [facility] ([place]) Comment on above: Performed By: #### C BC, ADIFF, GFR, ESR, BMP, ANEU #### [place] [address] #### JEAN-PIERRE, CRPHS, RF, B12 #### [place] [address] WBC 7.9 10 3/mcL Normal 4.6-10.8 [facility] ([place]) Comment on above: Performed By: #### C BC, ADIFF, GFR, ESR, BMP, ANEU #### [place] [address] #### JEAN-PIERRE, CRPHS, RF, B12 #### [place] [address] CRPHSon 11-05-2023 CRP, High Sensitive 22.33 mg/L High 0.20-3.00 [facility] ([place]) Comment on above: Result Comment: Rela tive Risk Category and Average hs-CRP Level: Higher Risk: > 5.0 mg/L Guidelines support that hs-CRP can be used as an independent predictor of increased coronary risk; however, hs-CRP results should only be interpreted in conjunction with other cardiac risk factors in establishing overall cardiac risk for a given patient. Performed By: #### G , BMP #### [place] [address] [place], [place] [address] ESRon 11-05-2023 Erythrocyte Sed Rate 19 mm/hr Normal 0-30 [facility] ([place]) Comment on above: Performed By: #### G , BMP #### [place] [address] [place], [place] [address] LABORATORYOrdered By: SYSTEM SYSTEM on 11-05-2023 25-hydroxyvitamin D3 [Mass/Vol] 47.5 ng/mL Invalid Interpretation Code AO ADM SS Comment on above: Interpretive Data: I nterpretive Values Based on Total 25(OH) Vitamin D: Deficient <20 ng/mL Insufficient 20 - <30 ng/mL Sufficient 30-100 ng/mL Basophil, Absolute 0.1 103/mcL Normal 0.0 - 0.2 10^3/mcL AO Workflow SS Basophils/100 WBC (Bld) 0.9 % Normal 0.0 - 2.5 % AO Workflow SS Calcium [Mass/Vol] 9.2 mg/dL Normal 8.4 - 10. 2 mg/dL AO ADM SS Chloride [Moles/Vol] 104 mmol/L Normal 98 - 10 7 mmol/L AO ADM SS CO2 [Moles/Vol] 28 mmol/L Normal 22 - 29 mmol/L AO ADM SS Cobalamin (Vitamin B12) [Mass/Vol] 413 pg/mL Normal 211 - 911 pg/mL AH ADM SS Creatinine [Mass/Vol] 1.12 mg/dL High 0.55 - 1.02 mg/dL AO ADM SS CRP High sensitivity method [Mass/Vol] 22.33 mg/L High 0.20 - 3.00 mg/L AH ADM SS Comment on above: Interpretive Data: R elative Risk Category and Average hs-CRP Level: Higher Risk: > 5.0 mg/L Guidelines support that hs-CRP can be used as an independent predictor of increased coronary risk; however, hs-CRP results should only be interpreted in conjunction with other cardiac risk factors in establishing overall cardiac risk for a given patient. Electrolyte Balance 12.0 mEq/L Normal 4.0 - 15 .0 mEq/L AO ADM SS Eosinophil, Absolute 0.1 103/mcL Normal 0.0 - 0 .4 10^3/mcL AO Workflow SS Eosinophils/100 WBC (Bld) 1.8 % Normal 0.0 - 7.0 % AO Workflow SS Erythrocyte distribution width (RBC) [Ratio] 15.1 % High 11.5 - 14.5 % AO Workflow SS GFR/1.73 sq M.predicted among blacks MDRD (S/P/Bld) [Vol rate/Area] 62 ml/min/1.73sqm Invalid Interpretation Code AO Chemistry S Comment on above: Interpretive Data: GFR Population mean for , Non- Americans Ages 20-29 = 116 mL/min/1.73 sq.m. Ages 30-39 = 107 mL/min/1.73 sq.m. Ages 40-49 = 99 mL/min/1.73 sq.m. Ages 50-59 = 93 mL/min/1.73 sq.m. Ages 60-69 = 85 mL/min/1.73 sq.m. Ages 70+ = 75 mL/min/1.73 sq.m. Chronic Kidney Disease: Less than 60 mL/min/1.73 square meters End Stage Renal Disease: Less than 15 mL/min/1.73 square meters GFR/1.73 sq M.predicted among non-blacks MDRD (S/P/Bld) [Vol rate/Area] 51 ml/min/1.73sqm Invalid Interpretation Code AO Chemistry S Comment on above: Interpretive Data: GFR Population mean for , Non- Americans Ages 20-29 = 116 mL/min/1.73 sq.m. Ages 30-39 = 107 mL/min/1.73 sq.m. Ages 40-49 = 99 mL/min/1.73 sq.m. Ages 50-59 = 93 mL/min/1.73 sq.m. Ages 60-69 = 85 mL/min/1.73 sq.m. Ages 70+ = 75 mL/min/1.73 sq.m. Chronic Kidney Disease: Less than 60 mL/min/1.73 square meters End Stage Renal Disease: Less than 15 mL/min/1.73 square meters Glucose [Mass/Vol] 124 mg/dL High 70 - 105 mg/dL AO ADM SS Hematocrit (Bld) [Volume fraction] 39.0 % Normal 37.0 - 47.0 % AO Workflow SS Hemoglobin (Bld) [Mass/Vol] 13.0 G/dL Normal 12.0 - 16.0 G/dL AO Workflow SS Lymphocyte, Absolute 1.2 103/mcL Normal 0.8 - 3 .9 10^3/mcL AO Workflow SS Lymphocytes/100 WBC (Bld) 15.8 % Normal 10.0 - 50.0 % AO Workflow SS MCH (RBC) [Entitic mass] 29.6 pg Normal 27.0 - 31.2 pg AO Workflow SS MCHC 33.4 G/dL Normal 33.0 - 37.0 G/dL AO Workflow SS MCV (RBC) [Entitic vol] 88.7 fL Normal 80.0 - 94.0 fL AO Workflow SS Monocyte, Absolute 0.4 103/mcL Normal 0.2 - 1.0 10^3/mcL AO Workflow SS Monocytes/100 WBC (Bld) 4.8 % Normal 1.7 - 13.0 % AO Workflow SS Neutrophil, Absolute 6.0 103/mcL Normal 2.9 - 6 .2 10^3/mcL AO Workflow SS Neutrophils/100 WBC (Bld) 76.7 % Normal 37.0 - 80.0 % AO Workflow SS Platelet mean volume (Bld) [Entitic vol] 10.0 fL Normal 7.4 - 10.4 fL AO Workflow SS Platelets (Bld) [#/Vol] 310 103/mcL Normal 130 - 400 10^3/mcL AO Workflow SS Potassium [Moles/Vol] 4.2 mmol/L Normal 3.5 - 5.1 mmol/L AO ADM SS RBC (Bld) [#/Vol] 4.39 106/mcL Normal 4.20 - 5.4 0 10^6/mcL AO Workflow SS Sodium [Moles/Vol] 144 mmol/L Normal 136 - 145 mmol/L AO ADM SS Urea nitrogen [Mass/Vol] 13 mg/dL Normal 7 - 18 mg/dL AO ADM SS Urea nitrogen/Creatinine [Mass ratio] 12 ratio Normal 7 - 27 ratio AO ADM SS WBC (Bld) [#/Vol] 7.9 103/mcL Normal 4.6 - 10.8 10^3/mcL AO Workflow SS LABORATORYOrdered By: Arleen Morrow on 11-05-2023 ESR Photometric method (Bld) [Velocity] 19 mm/hr Normal 0 - 30 mm/hr AO Man Heme SS VIDHon 11-05-2023 Vit. D 25-Hydroxy 47.5 ng/mL Normal [facility] ([place]) Comment on above: Result Comment: Inte rpretive Values Based on Total 25(OH) Vitamin D: Deficient <20 ng/mL Insufficient 20 - <30 ng/mL Sufficient 30-100 ng/mL Performed By: #### T [facility] #### [place] [id number] [place], [place] [address] [facility] Reporton 2022 [facility] Report . Pathology Reports Accession: Collected Date/Time: Received Date/Time: Pathologist: [id number] 09/29/2023 13:51 EST 09/29/2023 18:00 EST [facility] Report SPECIMEN: Specimen Description: Liquid Prep w/ HPV Specimen: Cervical/Endocervical Screening or Diagnostic: Screening RELEVANT HISTORY: LMP: postmenopausal SPECIMEN ADEQUACY: SATISFACTORY FOR EVALUATION LIMITED BY EXCESSIVE CELLULAR CYTOLYSIS Endocervical/Transformat ional zone component absent/insufficient INTERPRETATION/RESULTS: NEGATIVE FOR INTRAEPITHELIAL LESION OR MALIGNANCY HIGH RISK HPV TESTING: Event Code Result HPV Interp See Interp HPVN HPV Interp Text: High Risk HPV Typing: NEGATIVE HPV types 16, 18, 31, 33, 35, 39, 45, 51, 52, 56, 58, 59, 66 and 68 DNA were undetectable or below the pre-set threshold. The yuko High-Risk HPV DNA Test is not intended for use as a screening device for Pap normal women under age 30 and is not intended to substitute for regular Pap screening. The yuko High-Risk HPV DNA Test is designed to augment existing methods for the detection of cervical disease and should be used in conjunction with clinical information derived from other diagnostic and screening tests, physical examinations and full medical history in accordance with appropriate patient management procedures. NOTE: A negative result does not preclude the presence of HPV infection because results depend on adequate specimen collection, absence of inhibitors and sufficient DNA to be detected. As of: 10/06/23 13:01 EST COMMENT: This Pap Test was successfully processed and evaluated with the assistance of the [employer] ThinPrep Test Imaging System. Pathology Reports Accession: Collected Date/Time: Received Date/Time: Pathologist: [id number] 09/29/2023 13:51 EST 09/29/2023 18:00 EST Electronically Signed by Pathology report verified by [facility] Screened by: MARY Electronically signed by Lidia SCOTT (ASCP) Sign-Out Date: 10/06/2023 13:01 Performing Lab: [facility], [address] [place] [address] Pathology Dept Disclaimer The Pap test is a screening test for cervical cancer. As evidenced by published data, it is subject to both inherent false negative and false positive results. Your patient's results should be interpreted in context with pertinent clinical history including gynecological examination. Normal [facility] ([place]) HPVon 10-05-2023 HPV Interp Normal See Inter HPVN [facility] ([place]) Comment on above: Order Comment: Order placed by AP_HPV_ORDER rule from [id number] Result Comment: High Risk HPV Typing: NEGATIVE HPV types 16, 18, 31, 33, 35, 39, 45, 51, 52, 56, 58, 59, 66 and 68 DNA were undetectable or below the pre-set threshold. The yuko High-Risk HPV DNA Test is not intended for use as a screening device for Pap normal women under age 30 and is not intended to substitute for regular Pap screening. The yuko High-Risk HPV DNA Test is designed to augment existing methods for the detection of cervical disease and should be used in conjunction with clinical information derived from other diagnostic and screening tests, physical examinations and full medical history in accordance with appropriate patient management procedures. NOTE: A negative result does not preclude the presence of HPV infection because results depend on adequate specimen collection, absence of inhibitors and sufficient DNA to be detected. See Interp HPVN Performed By: #### T GENEVIEVE #### [place] [address] [address] HPV Source Cervix Normal [facility] ([place]) Comment on above: Order Comment: Order placed by AP_HPV_ORDER rule from [id number] Performed By: #### T GENEVIEVE #### [address] [address] LABORATORYOrdered By: SYSTEM SYSTEM on 02-20-2023 Calcium [Mass/Vol] 9.4 mg/dL Invalid Interpretation Code 8.4 - 10.2 mg/dL AO ADM SS Chloride [Moles/Vol] 105 mmol/L Invalid Interpretation Code 98 - 107 mmol/L AO ADM SS CO2 [Moles/Vol] 30 mmol/L Invalid Interpretation Code 22 - 29 mmol/L AO ADM SS Creatinine [Mass/Vol] 1.11 mg/dL Invalid Interpretation Code 0.55 - 1.02 mg/dL AO ADM SS Electrolyte Balance 8.0 mEq/L Invalid Interpretation Code 4.0 - 15.0 mEq/L AO ADM SS GFR/1.73 sq M.predicted among blacks MDRD (S/P/Bld) [Vol rate/Area] 63 ml/min/1.73sqm Invalid Interpretation Code AO Chemistry S GFR/1.73 sq M.predicted among non-blacks MDRD (S/P/Bld) [Vol rate/Area] 52 ml/min/1.73sqm Invalid Interpretation Code AO Chemistry S Glucose [Mass/Vol] 99 mg/dL Invalid Interpretation Code 70 - 105 mg/dL AO ADM SS Potassium [Moles/Vol] 4.1 mmol/L Invalid Interpretation Code 3.5 - 5.1 mmol/L AO ADM SS Sodium [Moles/Vol] 143 mmol/L Invalid Interpretation Code 136 - 145 mmol/L AO ADM SS Urea nitrogen [Mass/Vol] 14 mg/dL Invalid Interpretation Code 7 - 18 mg/dL AO ADM SS Urea nitrogen/Creatinine [Mass ratio] 13 ratio Invalid Interpretation Code 7 - 27 ratio AO ADM SS LABORATORYOrdered By: Marisol Lam on 09-26-2022 Albumin BCP dye [Mass/Vol] 3.8 G/dL Invalid Interpretation Code 3.5 - 5.0 G/dL AO ADM SS Albumin/Globulin [Mass ratio] 1.0 {ratio} Invalid Interpretation Code 1.1 - 2.5 ratio AO ADM SS ALP [Catalytic activity/Vol] 67 U/L Invalid Interpretation Code 40 - 135 U/L AO ADM SS ALT With P-5'-P [Catalytic activity/Vol] 32 U/L Invalid Interpretation Code 14 - 59 U/L AO ADM SS AST With P-5'-P [Catalytic activity/Vol] 25 U/L Invalid Interpretation Code 10 - 40 U/L AO ADM SS Basophil, Absolute 0.1 103/mcL Invalid Interpretation Code 0.0 - 0.2 10^3/mcL AO Workflow SS Basophils/100 WBC (Bld) 1.3 % Invalid Interpretation Code 0.0 - 2.5 % AO Workflow SS Bilirubin [Mass/Vol] 0.3 mg/dL Invalid Interpretation Code 0.2 - 1.0 mg/dL AO ADM SS Calcium [Mass/Vol] 10.4 mg/dL Invalid Interpretation Code 8.4 - 10.2 mg/dL AO ADM SS Chloride [Moles/Vol] 103 mmol/L Invalid Interpretation Code 98 - 107 mmol/L AO ADM SS Cholesterol [Mass/Vol] 245 mg/dL Invalid Interpretation Code 0 - 200 mg/dL AO ADM SS Cholesterol in HDL [Mass/Vol] 101 mg/dL Invalid Interpretation Code 40 - 60 mg/dL AO ADM SS Cholesterol in LDL [Mass/Vol] 118 mg/dL Invalid Interpretation Code 0 - 130 mg/dL AO ADM SS CO2 [Moles/Vol] 27 mmol/L Invalid Interpretation Code 22 - 29 mmol/L AO ADM SS Creatinine [Mass/Vol] 1.33 mg/dL Invalid Interpretation Code 0.55 - 1.02 mg/dL AO ADM SS Electrolyte Balance 13.0 mEq/L Invalid Interpretation Code 4.0 - 15.0 mEq/L AO ADM SS Eosinophil, Absolute 0.3 103/mcL Invalid Interpretation Code 0.0 - 0.4 10^3/mcL AO Workflow SS Eosinophils/100 WBC (Bld) 6.7 % Invalid Interpretation Code 0.0 - 7.0 % AO Workflow SS Erythrocyte distribution width (RBC) [Ratio] 13.3 % Invalid Interpretation Code 11.5 - 14.5 % AO Workflow SS Free T4 [Mass/Vol] 0.91 ng/dL Invalid Interpretation Code 0.76 - 1.46 ng/dL AO ADM SS Globulin 3.8 G/dL Invalid Interpretation Code AO ADM SS Glucose [Mass/Vol] 137 mg/dL Invalid Interpretation Code 70 - 105 mg/dL AO ADM SS HbA1c (Bld) [Mass fraction] 5.0 % Invalid Interpretation Code 4.3 - 6.4 % AO ADM SS Hematocrit (Bld) [Volume fraction] 43.2 % Invalid Interpretation Code 37.0 - 47.0 % AO Workflow SS Hemoglobin (Bld) [Mass/Vol] 14.4 G/dL Invalid Interpretation Code 12.0 - 16.0 G/dL AO Workflow SS Lymphocyte, Absolute 1.3 103/mcL Invalid Interpretation Code 0.8 - 3.9 10^3/mcL AO Workflow SS Lymphocytes/100 WBC (Bld) 25.0 % Invalid Interpretation Code 10.0 - 50.0 % AO Workflow SS MCH (RBC) [Entitic mass] 30.9 pg Invalid Interpretation Code 27.0 - 31.2 pg AO Workflow SS MCHC 33.4 G/dL Invalid Interpretation Code 33.0 - 37.0 G/dL AO Workflow SS MCV (RBC) [Entitic vol] 92.3 fL Invalid Interpretation Code 80.0 - 94.0 fL AO Workflow SS Monocyte, Absolute 0.3 103/mcL Invalid Interpretation Code 0.2 - 1.0 10^3/mcL AO Workflow SS Monocytes/100 WBC (Bld) 5.5 % Invalid Interpretation Code 1.7 - 13.0 % AO Workflow SS Neutrophil, Absolute 3.2 103/mcL Invalid Interpretation Code 2.9 - 6.2 10^3/mcL AO Workflow SS Neutrophils/100 WBC (Bld) 61.5 % Invalid Interpretation Code 37.0 - 80.0 % AO Workflow SS Platelet mean volume (Bld) [Entitic vol] 10.3 fL Invalid Interpretation Code 7.4 - 10.4 fL AO Workflow SS Platelets (Bld) [#/Vol] 262 103/mcL Invalid Interpretation Code 130 - 400 10^3/mcL AO Workflow SS Potassium [Moles/Vol] 4.2 mmol/L Invalid Interpretation Code 3.5 - 5.1 mmol/L AO ADM SS Protein [Mass/Vol] 7.6 G/dL Invalid Interpretation Code 6.4 - 8.2 G/dL AO ADM SS RBC (Bld) [#/Vol] 4.68 106/mcL Invalid Interpretation Code 4.20 - 5.40 10^6/mcL AO Workflow SS Sodium [Moles/Vol] 143 mmol/L Invalid Interpretation Code 136 - 145 mmol/L AO ADM SS Triglyceride [Mass/Vol] 128 mg/dL Invalid Interpretation Code 0 - 150 mg/dL AO ADM SS TSH Qn 0.60 m[IU]/L Invalid Interpretation Code 0.36 - 3.74 mcIU/mL AO ADM SS Urea nitrogen [Mass/Vol] 16 mg/dL Invalid Interpretation Code 7 - 18 mg/dL AO ADM SS Urea nitrogen/Creatinine [Mass ratio] 12 ratio Invalid Interpretation Code 7 - 27 ratio AO ADM SS Vit. D 25-Hydroxy 63.0 ng/mL Invalid Interpretation Code AO ADM SS WBC (Bld) [#/Vol] 5.1 103/mcL Invalid Interpretation Code 4.6 - 10.8 10^3/mcL AO Workflow SS LABORATORYOrdered By: SYSTEM SYSTEM on 09-26-2022 Follitropin Qn 6.0 m[IU]/mL Invalid Interpretation Code ADM SS GFR 51 ml/min/1.73sqm Invalid Interpretation Code AO Chemistry S GFR Non- 42 ml/min/1.73sqm Invalid Interpretation Code AO Chemistry S Lutropin Qn 4.4 m[IU]/mL Invalid Interpretation Code ADM SS Prolactin [Mass/Vol] 9.4 ng/mL Invalid Interpretation Code 2.0 - 30.0 ng/mL ADM SS TPO Ab IA Qn 29 unit/mL Invalid Interpretation Code 0 - 60 unit/mL ADM SS Absolute lymphocyte counton 06-16-2022 Lymphocytes Auto (Unsp spec) [#/Vol] 1.28 10*3/uL 0.83-4.51 [facility] Work Phone: Basophil percentageon 2021 Basophils/100 WBC (Bld) 0.9 % 0-1 [facility] Work Phone: Chloride [Moles/Vol] 106 mmol/L 98-107 [facility] Work Phone: Eosinophils/100 WBC (Bld) 4.2 % 0-5 [facility] Work Phone: Glucose [Mass/Vol] 125 mg/dL 74-106 [facility] Work Phone: Comment on above: Fasting Glucose resu lt from 100 to 125 mg/dL suggests IMPAIRED HOMEOSTASIS per A.D.A. criteria. Neutrophils (Bld) [#/Vol] 5.4 10*3/uL 2.0-7.7 [facility] Work Phone: Neutrophils/100 WBC (Bld) 72.1 % 47-70 [facility] Work Phone: Potassium [Moles/Vol] 3.6 mmol/L 3.5-5.1 [facility] Work Phone: Sodium [Moles/Vol] 139 mmol/L 136-145 [facility] Work Phone: WBC (Bld) [#/Vol] 7.5 10*3/uL 4.4-11.0 [facility] Work Phone: Basophil percentage 0-5 SEEN /hpf 0-5 [facility] Work Phone: Bilirubin Test strip Ql (U)o n 06-16-2022 Bilirubin Ql (U) Negative Negative [facility] Work Phone: Blood erythrocytes count (nu mber/volume)on 06-16-2022 RBC (Bld) [#/Vol] 4.59 10*6/uL 4.2-5.4 [facility] Work Phone: Blood hemoglobin measurement (mass/volume)on 06-16-2022 Hemoglobin (Bld) [Mass/Vol] 14.2 g/dL 12.0-15.0 [facility] Work Phone: Blood lymphocytes/100 leukoc yteson 06-16-2022 Lymphocytes/100 WBC (Bld) 17.0 % 19-41 [facility] Work Phone: Blood monocytes/100 leukocyt eson 06-16-2022 Monocytes/100 WBC (Bld) 5.3 % 0-10 [facility] Work Phone: Blood platelet mean volumeon 06-16-2022 Platelet mean volume (Bld) [Entitic vol] 12.1 fL 6.2-12.0 [facility] Work Phone: Determination of erythrocyte mean corpuscular volume (MCV)on 06-16-2022 MCV (RBC) [Entitic vol] 94.1 fL 81-99 [facility] Work Phone: Hematocrit Auto (Bld) [Volum e fraction]on 06-16-2022 Hematocrit (Bld) [Volume fraction] 43.2 % 37-47 [facility] Work Phone: Ketones Test strip Ql (U)on 06-16-2022 Ketones Ql (U) Negative Negative [facility] Work Phone: Laboratory - Chemistry and C hemistry - challengeon 06-16-2022 CO2 [Moles/Vol] 28.0 mmol/L 21.0-32.0 [facility] Work Phone: [phone] Urea nitrogen/Creatinine [Mass ratio] 12.9 mg/mg 10-20 [facility] Work Phone: [phone] Laboratory - Hematology and Cell countson 06-16-2022 Erythrocyte distribution width (RBC) [Entitic vol] 43.6 fL 35.1-43.9 [facility] Work Phone: [phone] Erythrocyte distribution width (RBC) [Ratio] 12.6 % 11.6-14.6 [facility] Work Phone: [phone] Immature granulocytes/100 WBC (Bld) 0.500 % 0.0-0.9 [facility] Work Phone: [phone] Comment on above: IG% - Immature Granu locytes (promyelocytes, myelocytes and metamyelocytes) > 1% indicates that a LEFT SHIFT is Present. MCH (RBC) [Entitic mass] 30.9 pg 27.0-32.0 [facility] Work Phone: [phone] Nucleated RBC/100 WBC (Bld) [Ratio] 0 % 0-5 [facility] Work Phone: [phone] MCHC Auto (RBC) [Mass/Vol]on 06-16-2022 MCHC (RBC) [Mass/Vol] 32.9 g/dL 32-36 [facility] Work Phone: [phone] Mucus LM Ql (Urine sed)on Mucus Ql (Urine sed) 0 SEEN /hpf [facility] Work Phone: [phone] Nitrite Test strip Ql (U)on 06-16-2022 Nitrite Ql (U) Negative Negative [facility] Work Phone: [phone] Panel Informationon 06-16 Estimated Creatinine Clearance Calc 50.66 ml/min [facility] Work Phone: [phone] Estimated GFR (MDRD) Amer 64 mL/min >60 [facility] Work Phone: Comment on above: GFR Calc Estimated GFR (MDRD) Non-Af Amer 53 mL/min >60 [facility] Work Phone: Comment on above: Non- GFR Calc Platelets bldon 06-16-2022 Platelets (Bld) [#/Vol] 249 10*3/uL 150-450 [facility] Work Phone: [phone] Protein Test strip Ql (U)on 06-16-2022 Protein Ql (U) Negative Negative [facility] Work Phone: [phone] Serum or plasma calcium lyla urement (mass/volume)on 06-16-2022 Calcium [Mass/Vol] 9.3 mg/dL 8.5-10.1 [facility] Work Phone: [phone] Serum or plasma creatinine m easurement (mass/volume)on 06-16-2022 Creatinine [Mass/Vol] 1.16 mg/dL 0.55-1.02 [facility] Work Phone: Comment on above: The validity of the calculated GFR & GFRAA in patients over 70 years has not been determined. Clinical correlation is essential. Serum or plasma urea nitroge n measurement (mass/volume)on 06-16-2022 Urea nitrogen [Mass/Vol] 15 mg/dL 7-18 [facility] Work Phone: [phone] Squamous epithelial cells de tection in urine sediment by light microscopyon 06-16-2022 Epithelial cells.squamous LM Ql (Urine sed) 0-5 SEEN /hpf 5-10 [facility] Work Phone: Thin prep Papanicolaou smear with manual screeningon 06-16-2022 Thin prep Papanicolaou smear with manual screening 5 5-15 [facility] Work Phone: [phone] Urine blood detectionon 05-20 RBC Ql (U) 10 /ul Negative [facility] Work Phone: [phone] RBC Ql (U) 0 SEEN /hpf 0-5 [facility] Work Phone: [phone] Urine clarityon 06-16-2022 Clarity (U) Sl. Cloudy Clear [facility] Work Phone: Urine color determinationon 06-16-2022 Color (U) Yellow Yellow [facility] Work Phone: Urine glucose detectionon Glucose Ql (U) Normal mg/dl Normal [facility] Work Phone: Urine leukocyte esterase det ection by dipstickon 06-16-2022 Leukocyte esterase Test strip Ql (U) 25 /ul Negative [facility] Work Phone: Urine pHon 06-16-2022 pH (U) 6.0 [pH] 5.0 - 8.0 [facility] Work Phone: Urine sediment bacteria coun t by microscopy (number/high power field)on 06-16-2022 Bacteria LM.HPF (Urine sed) [#/Area] 2 /[HPF] None Seen [facility] Work Phone: Urine specific gravity measu rementon 06-16-2022 Specific gravity (U) [Rel density] 1.020 1.002-1.030 [facility] Work Phone: Urobilinogen Auto test strip Ql (U)on 06-16-2022 Urobilinogen Ql (U) Normal mg/dl Normal [facility] Work Phone: Absolute lymphocyte counton 03-15-2022 Lymphocytes Auto (Unsp spec) [#/Vol] 1.42 10*3/uL 0.83-4.51 [facility] Work Phone: Basophil percentageon 2021 Basophil percentage 0-5 SEEN /hpf 0-5 [facility] Work Phone: Basophils/100 WBC (Bld) 1.0 % 0-1 [facility] Work Phone: Chloride [Moles/Vol] 108 mmol/L 98-107 [facility] Work Phone: Eosinophils/100 WBC (Bld) 4.9 % 0-5 [facility] Work Phone: Glucose [Mass/Vol] 137 mg/dL 74-106 [facility] Work Phone: Comment on above: Fasting Glucose resu lt greater than or equal to 126 mg/dL suggests DIABETES MELLITUS per A.D.A. criteria. Neutrophils (Bld) [#/Vol] 5.0 10*3/uL 2.0-7.7 [facility] Work Phone: Neutrophils/100 WBC (Bld) 68.9 % 47-70 [facility] Work Phone: Potassium [Moles/Vol] 3.7 mmol/L 3.5-5.1 [facility] Work Phone: Sodium [Moles/Vol] 139 mmol/L 136-145 [facility] Work Phone: WBC (Bld) [#/Vol] 7.3 10*3/uL 4.4-11.0 [facility] Work Phone: Beta hCG serum qualon 2021 Beta HCG ( test) Ql Negative [facility] Work Phone: Bilirubin Test strip Ql (U)o n 03-15-2022 Bilirubin Ql (U) Negative Negative [facility] Work Phone: Blood erythrocytes count (nu mber/volume)on 03-15-2022 RBC (Bld) [#/Vol] 4.66 10*6/uL 4.2-5.4 [facility] Work Phone: Blood hemoglobin measurement (mass/volume)on 03-15-2022 Hemoglobin (Bld) [Mass/Vol] 14.1 g/dL 12.0-15.0 [facility] Work Phone: Blood lymphocytes/100 leukoc yteson 03-15-2022 Lymphocytes/100 WBC (Bld) 19.5 % 19-41 [facility] Work Phone: Blood monocytes/100 leukocyt eson 03-15-2022 Monocytes/100 WBC (Bld) 5.2 % 0-10 [facility] Work Phone: Blood platelet mean volumeon 03-15-2022 Platelet mean volume (Bld) [Entitic vol] 11.8 fL 6.2-12.0 [facility] Work Phone: [phone] Determination of erythrocyte mean corpuscular volume (MCV)on 03-15-2022 MCV (RBC) [Entitic vol] 92.5 fL 81-99 [facility] Work Phone: [phone] Hematocrit Auto (Bld) [Volum e fraction]on 03-15-2022 Hematocrit (Bld) [Volume fraction] 43.1 % 37-47 [facility] Work Phone: [phone] Ketones Test strip Ql (U)on 03-15-2022 Ketones Ql (U) Negative Negative [facility] Work Phone: [phone] Laboratory - Chemistry and C hemistry - challengeon 03-15-2022 CO2 [Moles/Vol] 24.0 mmol/L 21.0-32.0 [facility] Work Phone: [phone] Urea nitrogen/Creatinine [Mass ratio] 9.8 mg/mg 10-20 [facility] Work Phone: [phone] Laboratory - Hematology and Cell countson 03-15-2022 Erythrocyte distribution width (RBC) [Entitic vol] 42.9 fL 35.1-43.9 [facility] Work Phone: [phone] Erythrocyte distribution width (RBC) [Ratio] 12.5 % 11.6-14.6 [facility] Work Phone: [phone] Immature granulocytes/100 WBC (Bld) 0.500 % 0.0-0.9 [facility] Work Phone: [phone] Comment on above: IG% - Immature Granu locytes (promyelocytes, myelocytes and metamyelocytes) > 1% indicates that a LEFT SHIFT is Present. MCH (RBC) [Entitic mass] 30.3 pg 27.0-32.0 [facility] Work Phone: [phone] Nucleated RBC/100 WBC (Bld) [Ratio] 0 % 0-5 [facility] Work Phone: [phone] MCHC Auto (RBC) [Mass/Vol]on 03-15-2022 MCHC (RBC) [Mass/Vol] 32.7 g/dL 32-36 [facility] Work Phone: [phone] Mucus LM Ql (Urine sed)on Mucus Ql (Urine sed) 0 SEEN /hpf [facility] Work Phone: [phone] Nitrite Test strip Ql (U)on 03-15-2022 Nitrite Ql (U) Negative Negative [facility] Work Phone: [phone] No Panel Informationon 03-15 Estimated Creatinine Clearance Calc 44.52 ml/min [facility] Work Phone: [phone] Estimated GFR (MDRD) Amer 55 mL/min >60 [facility] Work Phone: [phone] Comment on above: GFR Calc Estimated GFR (MDRD) Non-Af Amer 45 mL/min >60 [facility] Work Phone: Comment on above: Non- GFR Calc Platelets bldon 03-15-2022 Platelets (Bld) [#/Vol] 297 10*3/uL 150-450 [facility] Work Phone: [phone] Protein Test strip Ql (U)on 03-15-2022 Protein Ql (U) 15 mg/dl Negative [facility] Work Phone: [phone] Serum or plasma calcium lyla urement (mass/volume)on 03-15-2022 Calcium [Mass/Vol] 8.9 mg/dL 8.5-10.1 [facility] Work Phone: [phone] Serum or plasma creatinine m easurement (mass/volume)on 03-15-2022 Creatinine [Mass/Vol] 1.32 mg/dL 0.55-1.02 [facility] Work Phone: Comment on above: The validity of the calculated GFR & GFRAA in patients over 70 years has not been determined. Clinical correlation is essential. Serum or plasma urea nitroge n measurement (mass/volume)on 03-15-2022 Urea nitrogen [Mass/Vol] 13 mg/dL 7-18 [facility] Work Phone: Squamous epithelial cells de tection in urine sediment by light microscopyon 03-15-2022 Epithelial cells.squamous LM Ql (Urine sed) 5-10 SEEN /hpf 5-10 [facility] Work Phone: Thin prep Papanicolaou smear with manual screeningon 03-15-2022 Thin prep Papanicolaou smear with manual screening 7 5-15 [facility] Work Phone: Urine blood detectionon 02-17 RBC Ql (U) 10 /ul Negative [facility] Work Phone: [phone] RBC Ql (U) 0 SEEN /hpf 0-5 [facility] Work Phone: [phone] Urine clarityon 03-15-2022 Clarity (U) Clear Clear [facility] Work Phone: Urine color determinationon 03-15-2022 Color (U) Yellow Yellow [facility] Work Phone: Urine glucose detectionon Glucose Ql (U) Normal mg/dl Normal [facility] Work Phone: Urine leukocyte esterase det ection by dipstickon 03-15-2022 Leukocyte esterase Test strip Ql (U) 25 /ul Negative [facility] Work Phone: Urine pHon 03-15-2022 pH (U) 8.0 [pH] 5.0 - 8.0 [facility] Work Phone: Urine sediment bacteria coun t by microscopy (number/high power field)on 03-15-2022 Bacteria LM.HPF (Urine sed) [#/Area] 2 /[HPF] None Seen [facility] Work Phone: Urine specific gravity measu rementon 03-15-2022 Specific gravity (U) [Rel density] 1.015 1.002-1.030 [facility] Work Phone: Urobilinogen Auto test strip Ql (U)on 03-15-2022 Urobilinogen Ql (U) Normal mg/dl Normal [facility] Work Phone: CNPNon 10-30-2021 CNPN Telephone (AKURFL) -------- ASHLEY GOODE ([id number]) 1970 F T Date Time Provider Department 10/30/21 INDU ALY During your visit today, we recorded the following information about you: Chirag Estrada 10/30/2021 8:59 AM Signed Patient has been contacted via: Phone To reschedule appointment with Provider: Jaswinder Date of appointment: 10/29/21 Reason: No Show Attempt: First Attempt Patient call back number given: No Any additional info: Phone line is always busy and home phone not working Allergies As of Date: 10/30/2021 Noted Allergy Reaction MORPHINE 10/17/2009 4 - Hives Date Reviewed: 10/14/2021 Reviewed by: [place], ZE - Fully Assessed Reason for Visit: No Show [1558] Prescriptions as of 10/30/2021 - polyethylene glycol 3350 (MIRALAX, GLYCOLAX) 17 gram packet Take 1 Packet by mouth once daily. Dissolve dose in 4 - 8 ounces of liquid and take as directed. - senna (SENOKOT) 8.6 mg tab Take 1 tablet by mouth twice daily. - traZODone (DESYREL) 100 mg tablet Take 2 tablets by mouth daily at bedtime. - naproxen sodium (ALEVE) 220 mg tablet Take 1 tablet by mouth twice daily. As needed for pain. - acetaminophen (TYLENOL) 325 mg tablet Take 2 tablets by mouth every 8 hours as needed for pain. - citalopram (CELEXA) 20 mg tablet Take 20 mg by mouth once daily. Problem List As Of Date 10/30/2021 Noted Resolved Hydronephrosis [N13.30] 10/12/2021 Encounter Status:Closed by CHIRAG BALBUENA on 10/30/21 [facility] Rudy 10-17-2021 [facility] Telephone (PODCCP) -------- ASHLEY GOODE ([id number]) 1970 F Date Time Provider Department 10/17/21 KIAN GALINDO PODCCP During your visit today, we recorded the following information about you: Allergies As of Date: 10/17/2021 Noted Allergy Reaction MORPHINE 10/17/2009 4 - Hives Date Reviewed: 10/14/2021 Reviewed by: [place] RN - Fully Assessed Reason for Visit: Follow Up Phone Call [2621] Cmt: Post Discharge F/U ? attempt made. No answer. Prescriptions as of 10/17/2021 - polyethylene glycol 3350 (MIRALAX, GLYCOLAX) 17 gram packet Take 1 Packet by mouth once daily. Dissolve dose in 4 - 8 ounces of liquid and take as directed. - senna (SENOKOT) 8.6 mg tab Take 1 tablet by mouth twice daily. - traZODone (DESYREL) 100 mg tablet Take 2 tablets by mouth daily at bedtime. - naproxen sodium (ALEVE) 220 mg tablet Take 1 tablet by mouth twice daily. As needed for pain. - amoxicillin-clavulanic acid (AUGMENTIN) 875-125 mg per tablet Take 1 tablet by mouth twice daily for 7 days. - acetaminophen (TYLENOL) 325 mg tablet Take 2 tablets by mouth every 8 hours as needed for pain. - citalopram (CELEXA) 20 mg tablet Take 20 mg by mouth once daily. Problem List As Of Date 10/17/2021 Noted Resolved Hydronephrosis [N13.30] 10/12/2021 Encounter Status:Closed by KIAN GALINDO on 10/17/21 Normal [facility] Basic metabolic 2000 panelon 10-16-2021 Anion gap [Moles/Vol] 9 mmol/L Normal 9-18 [facility] Comment on above: Order Comment: Speci men Type: BLOOD SPECIMEN Performed By: #### 2 4321-2 ####[facility] LABORATORYCLIA [id number] [address] Calcium [Mass/Vol] 8.7 mg/dL Normal 8.5-10.2 [facility] Comment on above: Order Comment: Speci men Type: BLOOD SPECIMEN Performed By: #### 2 4321-2 ####[facility] LABORATORYCLIA [id number] [address] Chloride [Moles/Vol] 110 mmol/L High 97-105 [facility] Comment on above: Order Comment: Speci men Type: BLOOD SPECIMEN Performed By: #### 2 4321-2 ####[facility]ORATORYCLIA [id number] [address] CO2 [Moles/Vol] 22 mmol/L Normal 22-30 [facility] Comment on above: Order Comment: Speci men Type: BLOOD SPECIMEN Performed By: #### 2 4321-2 ####[facility]ORATORYCLIA [id number] [address] Creatinine [Mass/Vol] 0.81 mg/dL Normal 0.58-0.96 [facility] Comment on above: Order Comment: Speci men Type: BLOOD SPECIMEN Performed By: #### 2 4321-2 ####[facility] LABORATORYCLIA [id number] [address] [place] GFR/1.73 sq M.predicted MDRD (S/P/Bld) [Vol rate/Area] mL/min/{1.73_m2} Normal [facility] Comment on above: Order Comment: Speci men Type: BLOOD SPECIMEN Result Comment: >60 eGFR (Estimated GFR) Units of measure: mL/min/1.73 meters squared eGFR is derived from the reexpressed MDRD Study equation using the following parameters: serum creatinine, age, gender and race. The creatinine assay has been calibrated to be traceable to IDMS. An eGFR <60 mL/min/1.73m2 for >3 months is consistent with chronic kidney disease. Refer to KDOQI guidelines for clinical interpretation. In patients with unstable renal function, e.g. those with acute kidney injury, the eGFR may not accurately reflect actual GFR. Performed By: #### 2 4321-2 ####[facility] LABORATORYCLIA [id number] [place] [address] [place] Glucose [Mass/Vol] 103 mg/dL High 74-99 [facility] Comment on above: Order Comment: Speci men Type: BLOOD SPECIMEN Result Comment: The [place] [employer] (ADA) provides guidance for cutoff values for fasting glucose and random glucose. The ADA defines fasting as no caloric intake for at least 8 hours. Fasting plasma glucose results between 100 to 125 mg/dL indicate increased risk for diabetes (prediabetes). Fasting plasma glucose results greater than or equal to 126 mg/dL meet the criteria for diagnosis of diabetes. In the absence of unequivocal hyperglycemia, results should be confirmed by repeat testing. In a patient with classic symptoms of hyperglycemia or hyperglycemic crisis, random plasma glucose results greater than or equal to 200 mg/dL meet the criteria for diagnosis of diabetes. Reference: Standards of Medical Care in Diabetes 2016, [place] [employer]. Diabetes Care. 2016.39(Suppl 1). Performed By: #### 2 4321-2 ####[facility] LABORATORYCLIA [id number] [address] [place] Potassium [Moles/Vol] 3.7 mmol/L Normal 3.7-5.1 [facility] Comment on above: Order Comment: Speci men Type: BLOOD SPECIMEN Performed By: #### 2 4321-2 ####[facility] LABORATORYCLIA [id number] [place] [address] [place] [place] Sodium [Moles/Vol] 141 mmol/L Normal 136-144 [facility] Comment on above: Order Comment: Speci men Type: BLOOD SPECIMEN Performed By: #### 2 4321-2 ####[facility]ATORYCLIA [id number] [place] [address] [place] Urea nitrogen [Mass/Vol] 4 mg/dL Low 7-21 [facility] Comment on above: Order Comment: Speci men Type: BLOOD SPECIMEN Performed By: #### 2 4321-2 ####[facility] LABORATORYCLIA [id number] [address] [facility] CNDSon 10-16-2021 CNDS HNO ID: [id number] Author: Kirsten Austin MD Service: Hospital Medicine Author Type: Physician Type: Discharge Summary Filed: 10/16/2021 4:22 PM Note Text: Pt admit on 10/12/2021 Pt dc to home on 10/16/2021 PAST MEDICAL HISTORY Diagnosis Date - Irritable bowel syndrome - Tubal x 2 Hospital Course - Per HAND 10/12 - 'This is a 50 year old female who presented to the hospital with complaint of worsening right flank pain, nausea/vomiting, fevers, and and pain behind her left ear starting on . Patient states she has an extensive history of kidney stones and previously had a right nephrostomy tube for time. She was taken for the ED to IR where another right nephrostomy tube was placed. She denies any dysuria. Patient states that while her right flank hurts the pain behind her left ear is worse. She states she has never had this kind of pain before, and denies any drainage from her ear, loss of hearing, ringing in the ears, complaint of fullness in the ears, nasal congestion or discharge. She denies any numbness/tingling/focal weakness, change in vision, vertigo, lightheadedness, difficulty swallowing. She denies chest pain, palpitations, cough, recent illnesses, diarrhea or other compaints In the ED, labs revealed WBCs of 14.9, K of 3.3, Cr of 0.98 (baseline?). UA at [place] was indicative of UTI. CT head at [place] showed severe paranasal sinus disease. CT Abd showed severe right-sided hydronephrosis and moderate hydroureter possible 2/2 stricture with association inflammation/infection. She was given dilaudid 1.0 mg x1 and 0.5 mg x2, 1L NS, 300 mg of gentamicin and was started on ceftriaxone.' Per [facility] Medicine 10/15 - '#Severe right hydronephrosis 2/2 R ureteral stricture s/p perc neph tube by IR 10/12/21 -maintain perc tube to drain -appreciate urology and IR -Ucx negative but pt still very lethargic and weak -will need OP urol follow up per urology for definitive tx -plan is to go home with perc tube as of now -IVF -pain control -get blood cultures -switch abx to Unasyn to cover possible sinusitis #Intractable headache Says non-stop throbbing pain with some blurred vision Hx of sinus problems -CT head -already using toradol and hydromorphone -trial fiorricet #constipation Per pt poop 1x week! Has not gone in ~10 days! This is the first time I am hearing of this -miralax BID -senna BID -try laculose -dulcolax suppository #UTI Ucx negative -ceftriaxone -follow up cx #hypokalemia -replete and recheck #?sinusitis apparently got a CT in [place] that showed sinusitis but pt says sx not consistent with her hx of sinusitis -abx and pain meds as above' ? 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 PLAN: - maintain R PNT to straight drain - labs pending this AM - could try NSAIDs for pain as dilaudid not helping - cont Abx - urine culture pending - recommend home with PNT for ureteral rest - outpatient renal lasix scan - patient can follow up with Dr. Prabhakar or [facility] urology for future, definitive mgmt - No further inpatient Urologic surgical intervention indicated (pt is to follow up with her Urologists at OSH at discharge, Dr Prabhakar?) Per lithographic general worker on 10/16 - 'Patient's daughter is hopeful for her mother to return home once medically stable. Bedside RN to instruct on drain care and patient's family is willing/ able to learn. At this time, patient's daughter declined need for skilled C services. Patient's family will provide transportation at discharge. Will follow clinical course for further DC planning needs. ' Visit with pt and her dtr today at [phone] - dtr will need to go to sister's ball game, will be back to p/u mom. Pt says she is trying to wean off pain meds, has had no IV dilaudid today. Says she has left head pain and left side pain, does not complain of pain of right side with PNT. Says she has not yet had a BM, says this has been going on for years, 'I have slow bowel'. We agree on plan below. 10/15/21 1543 10/15/21 1922 10/16/21 0300 10/16/21 0732 BP: 106/64 123/68 108/62 102/65 Pulse: 77 71 69 66 Resp: 16 16 16 16 Temp: 37 ?C (98.6 ?F) 37.3 ?C (99.1 ?F) 36.5 ?C (97.7 ?F) 37 ?C (98.6 ?F) TempSrc: Oral Oral Oral Oral SpO2: 95% 96% 93% 93% Weight: Height: CT brain 10/15 - IMPRESSION: 1. CT brain is within normal limits for patient age. 2. Mucosal thickening and/or opacification multiple paranasal sinuses, some demonstrating frothy secretions which may represent acute sinusitis in the proper clinical setting on a background of chronic sinusitis changes. 3 There is some increased attenuation noted within the left maxillary and right sphenoid sinuses as discussed above. Bilate (more content not included)... Normal [facility] Bacteria Bld Culton 10-15-20 21 Bacteria identified Cx Nom (Bld) CULTURE, BLOOD: No growth 5 days Normal [facility] Comment on above: Performed By: #### 6 00-7 #### [facility] CLIA [id number] [address] [place] Bacteria identified Cx Nom (Bld) CULTURE, BLOOD: No growth 5 days Normal [facility] Comment on above: Performed By: #### 6 00-7 ####[facility] LABORATORYCLIA [id number] [place] [address] [place] Basic metabolic 2000 panelon 10-15-2021 Anion gap [Moles/Vol] 10 mmol/L Normal 9-18 [facility] Comment on above: Order Comment: Speci men Type: BLOOD SPECIMEN Performed By: #### 2 4321-2 ####[facility]ORATORYCLIA [id number] [address] Calcium [Mass/Vol] 8.4 mg/dL Low 8.5-10.2 [facility] Comment on above: Order Comment: Speci men Type: BLOOD SPECIMEN Performed By: #### 2 4321-2 ####[facility]ORATORYCLIA [id number] [address] Chloride [Moles/Vol] 106 mmol/L High 97-105 [facility] Comment on above: Order Comment: Speci men Type: BLOOD SPECIMEN Performed By: #### 2 4321-2 ####[facility]ORATORYCLIA [id number] [address] CO2 [Moles/Vol] 23 mmol/L Normal 22-30 [facility] Comment on above: Order Comment: Speci men Type: BLOOD SPECIMEN Performed By: #### 2 4321-2 ####[facility]ATORYCLIA [id number] [address] Creatinine [Mass/Vol] 0.82 mg/dL Normal 0.58-0.96 [facility] Comment on above: Order Comment: Speci men Type: BLOOD SPECIMEN Performed By: #### 2 4321-2 ####[facility]ORATORYCLIA [id number] [address] GFR/1.73 sq M.predicted MDRD (S/P/Bld) [Vol rate/Area] mL/min/{1.73_m2} Normal [facility] Comment on above: Order Comment: Speci men Type: BLOOD SPECIMEN Result Comment: >60 eGFR (Estimated GFR) Units of measure: mL/min/1.73 meters squared eGFR is derived from the reexpressed MDRD Study equation using the following parameters: serum creatinine, age, gender and race. The creatinine assay has been calibrated to be traceable to IDMS. An eGFR <60 mL/min/1.73m2 for >3 months is consistent with chronic kidney disease. Refer to KDOQI guidelines for clinical interpretation. In patients with unstable renal function, e.g. those with acute kidney injury, the eGFR may not accurately reflect actual GFR. Performed By: #### 2 4321-2 ####[facility]ORATORYCLIA [id number] [address] [facility] Glucose [Mass/Vol] 100 mg/dL High 74-99 [facility] Comment on above: Order Comment: Speci men Type: BLOOD SPECIMEN Result Comment: The [place] Diabetes [employer] (ADA) provides guidance for cutoff values for fasting glucose and random glucose. The ADA defines fasting as no caloric intake for at least 8 hours. Fasting plasma glucose results between 100 to 125 mg/dL indicate increased risk for diabetes (prediabetes). Fasting plasma glucose results greater than or equal to 126 mg/dL meet the criteria for diagnosis of diabetes. In the absence of unequivocal hyperglycemia, results should be confirmed by repeat testing. In a patient with classic symptoms of hyperglycemia or hyperglycemic crisis, random plasma glucose results greater than or equal to 200 mg/dL meet the criteria for diagnosis of diabetes. Reference: Standards of Medical Care in Diabetes 2016, [place] [employer]. Diabetes Care. 2016.39(Suppl 1). Performed By: #### 2 4321-2 ####[facility]ORATORYCLIA [id number] [address] [place] [facility] Potassium [Moles/Vol] 3.3 mmol/L Low 3.7-5.1 [facility] Comment on above: Order Comment: Speci men Type: BLOOD SPECIMEN Performed By: #### 2 4321-2 ####[facility]ORATORYCLIA [id number] [address] [place] [facility] Sodium [Moles/Vol] 139 mmol/L Normal 136-144 [facility] Comment on above: Order Comment: Speci men Type: BLOOD SPECIMEN Performed By: #### 2 4321-2 ####[facility]ORATORYCLIA [id number] [address] [place] [facility] Urea nitrogen [Mass/Vol] 5 mg/dL Low 7-21 [facility] Comment on above: Order Comment: Speci men Type: BLOOD SPECIMEN Performed By: #### 2 4321-2 ####[facility] LABORATORYCLIA [id number] [place] [id number] [place] CT BRAIN WO IVCONon 10-15-20 CT BRAIN WO IVCON * * *Final Report* * * DATE OF EXAM: Oct 15 2021 11:41AM [facility] 0504 - CT BRAIN WO IVCON / PROCEDURE REASON: Headache, acute, severe, thunderclap, worst COLIN of life * * * * Physician Interpretation * * * * EXAMINATION: CT BRAIN WITHOUT IV CONTRAST, CT SINUS WITHOUT IV CONTRAST CLINICAL HISTORY: Headache, acute, severe, thunderclap, worst headache of life. Sinonasal obstruction, masses suspected. Paranasal sinusitis. TECHNIQUE: Serial axial images without IV contrast were obtained from the vertex to the foramen magnum. Spiral high resolution axial unenhanced CT images were obtained through the paranasal sinuses with sagittal, coronal reconstructions. MQ: CTBWO_3 MQ: CTSI_1 CT Radiation dose: Integrated Dose-Length Product (DLP) for this visit = 851 mGy*cm. CT Dose Reduction Employed: Automated exposure control(AEC) and iterative recon COMPARISON: CT brain from outside institution dated 10/12/2021. RESULT: BRAIN: Post-operative change: None. Acute change: No evidence of an acute infarct or other acute parenchymal process. Hemorrhage: No evidence of acute intracranial hemorrhage. Mass Lesion / Mass Effect: There is no evidence of an intracranial mass or extraaxial fluid collection. No significant mass effect. Chronic change: None apparent. Parenchyma: There is no significant volume loss. The brain parenchyma is otherwise within normal limits for age. Ventricles: The ventricles are within normal limits of size and configuration for age. Skull base: The skull base and imaged soft tissues are unremarkable. Core Finisher (topogram) images: Unremarkable. PARANASAL SINUSES: Post-Surgical Findings: None Sinus Chambers: Paranasal mucosal thickening is noted; see below for Anjana Jostin score for degree of sinus opacification. 0 is less than 2mm thickness of mucosal thickening, 1 is partial opacification, and 2 is almost complete or complete opacification. Air Fluid Levels: There are air fluid levels/frothy secretions which may indicate acute sinusitis in the right clinical setting. High attenuation sinus disease: There is high attenuation sinus disease which may indicated fungal colonization or inspissated secretions, with maximum Hounsfield units of 92. Left Frontal Sinus: 2 Left Anterior Ethmoid Air Cells: 1 Left posterior Ethmoid Air Cells: 1 Left Maxillary Sinus: 1 Left Sphenoid Sinus: 1 Left Ostiomeatal Complex: 1 LEFT [place] Score: 7 Right Frontal Sinus: 2 Right Anterior Ethmoid Air Cells: 2 Right posterior Ethmoid Air Cells: 2 Right Maxillary Sinus: 0 Right Sphenoid Sinus: 1 Right Ostiomeatal Complex: 1 RIGHT Anj[place] Score: 8 TOTAL [place] Jostin Score: 15 Nasal Cavities: Visualized nasal cavities are patent. Developmental Anomalies: There is mild nasal septal deviation, convex to the right. No other anomalies noted. Other: The visualized mastoid air cells and middle ear cavities are clear. The soft tissues of the face and orbits are within normal limits within the limitations of the study. Core Finisher (topogram) images: Unremarkable. IMPRESSION: 1. CT brain is within normal limits for patient age. 2. Mucosal thickening and/or opacification multiple paranasal sinuses, some demonstrating frothy secretions which may represent acute sinusitis in the proper clinical setting on a background of chronic sinusitis changes. 3. There is some increased attenuation noted within the left maxillary and right sphenoid sinuses as discussed above. Bilateral mastoid air cells and middle ear cavities are clear. No CT evidence of mastoiditis or otitis media. Line Fixer: PSCB Transcribe Date/Time: Oct 15 2021 12:01P Dictated by : TU CHOI MD This examination was interpreted and the report reviewed and electronically signed by: TU CHOI MD on Oct 15 2021 12:21PM EST [id number] Normal [facility] CT SINUS WO IVCONon 10-15-[address] SINUS WO IVCON * * *Final Report* * * DATE OF EXAM: Oct 15 2021 11:41AM [facility] 0488 - CT SINUS WO IVCON / PROCEDURE REASON: Sinonasal obstruction, mass suspected * * * * Physician Interpretation * * * * EXAMINATION: CT BRAIN WITHOUT IV CONTRAST, CT SINUS WITHOUT IV CONTRAST CLINICAL HISTORY: Headache, acute, severe, thunderclap, worst headache of life. Sinonasal obstruction, masses suspected. Paranasal sinusitis. TECHNIQUE: Serial axial images without IV contrast were obtained from the vertex to the foramen magnum. Spiral high resolution axial unenhanced CT images were obtained through the paranasal sinuses with sagittal, coronal reconstructions. MQ: CTBWO_3 MQ: CTSI_1 CT Radiation dose: Integrated Dose-Length Product (DLP) for this visit = 851 mGy*cm. CT Dose Reduction Employed: Automated exposure control(AEC) and iterative recon COMPARISON: CT brain from outside institution dated 10/12/2021. RESULT: BRAIN: Post-operative change: None. Acute change: No evidence of an acute infarct or other acute parenchymal process. Hemorrhage: No evidence of acute intracranial hemorrhage. Mass Lesion / Mass Effect: There is no evidence of an intracranial mass or extraaxial fluid collection. No significant mass effect. Chronic change: None apparent. Parenchyma: There is no significant volume loss. The brain parenchyma is otherwise within normal limits for age. Ventricles: The ventricles are within normal limits of size and configuration for age. Skull base: The skull base and imaged soft tissues are unremarkable. Core Finisher (topogram) images: Unremarkable. PARANASAL SINUSES: Post-Surgical Findings: None Sinus Chambers: Paranasal mucosal thickening is noted; see below for [place] score for degree of sinus opacification. 0 is less than 2mm thickness of mucosal thickening, 1 is partial opacification, and 2 is almost complete or complete opacification. Air Fluid Levels: There are air fluid levels/frothy secretions which may indicate acute sinusitis in the right clinical setting. High attenuation sinus disease: There is high attenuation sinus disease which may indicated fungal colonization or inspissated secretions, with maximum Hounsfield units of 92. Left Frontal Sinus: 2 Left Anterior Ethmoid Air Cells: 1 Left posterior Ethmoid Air Cells: 1 Left Maxillary Sinus: 1 Left Sphenoid Sinus: 1 Left Ostiomeatal Complex: 1 LEFT Anjana Jostin Score: 7 Right Frontal Sinus: 2 Right Anterior Ethmoid Air Cells: 2 Right posterior Ethmoid Air Cells: 2 Right Maxillary Sinus: 0 Right Sphenoid Sinus: 1 Right Ostiomeatal Complex: 1 RIGHT [place] Score: 8 TOTAL [place] Jostin Score: 15 Nasal Cavities: Visualized nasal cavities are patent. Developmental Anomalies: There is mild nasal septal deviation, convex to the right. No other anomalies noted. Other: The visualized mastoid air cells and middle ear cavities are clear. The soft tissues of the face and orbits are within normal limits within the limitations of the study. Core Finisher (topogram) images: Unremarkable. IMPRESSION: 1. CT brain is within normal limits for patient age. 2. Mucosal thickening and/or opacification multiple paranasal sinuses, some demonstrating frothy secretions which may represent acute sinusitis in the proper clinical setting on a background of chronic sinusitis changes. 3. There is some increased attenuation noted within the left maxillary and right sphenoid sinuses as discussed above. Bilateral mastoid air cells and middle ear cavities are clear. No CT evidence of mastoiditis or otitis media. Line Fixer: SUMIT Transcribe Date/Time: Oct 15 2021 12:01P Dictated by : TU CHOI MD This examination was interpreted and the report reviewed and electronically signed by: TU CHOI MD on Oct 15 2021 12:21PM EST [id number] Normal [facility] NURSING PROGon 10-15-2021 NURSING PROG HNO ID: [id number] Author: Ken Erickson RN Service: Nursing Author Type: Registered Nurse Type: Nursing Progress Note Filed: 10/15/2021 6:32 AM Note Text: Called to the patients bedside re: difficult blood draw for labs. US machine used to assist vein location. One mint top tube obtained successfully and sent to lab. Normal [facility] Basic metabolic 2000 panelon 10-14-2021 Anion gap [Moles/Vol] 11 mmol/L Normal 9-18 [facility] Comment on above: Order Comment: Speci men Type: BLOOD SPECIMEN Performed By: #### 2 4321-2 ####[facility]ORATORYCLIA [id number] [place] [address] [place] Calcium [Mass/Vol] 8.2 mg/dL Low 8.5-10.2 [facility] Comment on above: Order Comment: Speci men Type: BLOOD SPECIMEN Performed By: #### 2 4321-2 ####[facility]ATORYCLIA [id number] [place] [address] [place] Chloride [Moles/Vol] 101 mmol/L Normal 97-105 [facility] Comment on above: Order Comment: Speci men Type: BLOOD SPECIMEN Performed By: #### 2 4321-2 ####[facility]ORATORYCLIA [id number] [place] [address] [place] [facility] CO2 [Moles/Vol] 21 mmol/L Low 22-30 [facility] Comment on above: Order Comment: Speci men Type: BLOOD SPECIMEN Performed By: #### 2 4321-2 ####[facility]ORATORYCLIA [id number] [place] [id number] [place] Creatinine [Mass/Vol] 0.78 mg/dL Normal 0.58-0.96 [facility] Comment on above: Order Comment: Speci men Type: BLOOD SPECIMEN Performed By: #### 2 4321-2 ####[facility]ATORYCLIA [id number] [place] [id number] [place] GFR/1.73 sq M.predicted MDRD (S/P/Bld) [Vol rate/Area] mL/min/{1.73_m2} Normal [facility] Comment on above: Order Comment: Speci men Type: BLOOD SPECIMEN Result Comment: >60 eGFR (Estimated GFR) Units of measure: mL/min/1.73 meters squared eGFR is derived from the reexpressed MDRD Study equation using the following parameters: serum creatinine, age, gender and race. The creatinine assay has been calibrated to be traceable to IDMS. An eGFR <60 mL/min/1.73m2 for >3 months is consistent with chronic kidney disease. Refer to KDOQI guidelines for clinical interpretation. In patients with unstable renal function, e.g. those with acute kidney injury, the eGFR may not accurately reflect actual GFR. Performed By: #### 2 4321-2 ####[facility]ATORYCLIA [id number] [place] [id number] [place] Glucose [Mass/Vol] 99 mg/dL Normal 74-99 [facility] Comment on above: Order Comment: Speci men Type: BLOOD SPECIMEN Result Comment: The [place] Diabetes [employer] (ADA) provides guidance for cutoff values for fasting glucose and random glucose. The ADA defines fasting as no caloric intake for at least 8 hours. Fasting plasma glucose results between 100 to 125 mg/dL indicate increased risk for diabetes (prediabetes). Fasting plasma glucose results greater than or equal to 126 mg/dL meet the criteria for diagnosis of diabetes. In the absence of unequivocal hyperglycemia, results should be confirmed by repeat testing. In a patient with classic symptoms of hyperglycemia or hyperglycemic crisis, random plasma glucose results greater than or equal to 200 mg/dL meet the criteria for diagnosis of diabetes. Reference: Standards of Medical Care in Diabetes 2016, [place] [employer]. Diabetes Care. 2016.39(Suppl 1). Performed By: #### 2 4321-2 ####[facility]ATORYCLIA [id number] [address] Potassium [Moles/Vol] 3.4 mmol/L Low 3.7-5.1 [facility] Comment on above: Order Comment: Speci men Type: BLOOD SPECIMEN Performed By: #### 2 4321-2 ####[facility]ATORYCLIA [id number] [address] Sodium [Moles/Vol] 133 mmol/L Low 136-144 [facility] Comment on above: Order Comment: Speci men Type: BLOOD SPECIMEN Performed By: #### 2 4321-2 ####[facility]ATORYCLIA [id number] [address] Urea nitrogen [Mass/Vol] 6 mg/dL Low 7-21 [facility] Comment on above: Order Comment: Speci men Type: BLOOD SPECIMEN Performed By: #### 2 4321-2 ####[facility]ATORYCLIA [id number] [address] [facility] HNO ID: [id number] Author: SHELL Moreno Service: Case Management Author Type: Rn Chronic Type: Care Mgt Initial Assessment Filed: 10/14/2021 2:27 PM Note Text: CARE MANAGEMENT: ASSESSMENT AND DISCHARGE PLAN SERVICE DATE: October 14, 2021 SERVICE TIME: 2:16 PM PRIMARY CARE PHYSICIAN: RICCARDO Mattson ADMISSION STATUS: Inpatient Needs Prior to Discharge: (medical clearance) MEDICAL: N/A Patient/Senior Administrative Assistant Stated Goals: To return home to life as it was;To have reduction in pain;To have reduction in symptoms;To improve my functional status Health Insurance: Self Pay Health Issues Impacting Discharge Plan: (worse flank pain, uti, hx kidney stones, stent placement, severe right hydronephrosis, s/p percutanerous nephrostomy placement) Last Discharge Date: 10/19/09 Is this Within the Past 30 days? Last discharge within 30 days: No Advance Directive: Current Advance Directive: None Reservationist Attempted to Assist with AD Completion: Yes Action: Patient Unwilling Health LiteracyHow often do you need to have someone help you when you read instructions, pamphlets, or other written material from your doctor or pharmacy? : 1 - Never How confident are you filling out medical forms by yourself?: 1 - Extremely If Patient scores > 3 on either question, the following interventions were put into place:: Patient did not score > 3 on either question. Baseline Mental Status Prior to this Illness what was the patient's Baseline Mental Status?: Alert AND Oriented Prior to this illness, has anyone described the patient having any of the following behaviors?: Not Applicable Relationship of the informant to the patient:: Self Functional Status: Independent Does Patient Currently Receive Any Community Services or Home Care?: None Equipment Prior to Admission: None Has the Patient Been in a Correction Facility in the Past 30 days?: No SOCIAL: Living Arrangements: Home Lives With: Spouse Financial Resources: Employed Primary Contact: Extended Emergency Contact Information Primary Emergency Contact: MAXIMO GOODE Address: [address] [place] [address] [place] [address] Mobile Relation: Spouse Supportive Patient Contact:: Yes Contact Resources: Significant Other Caregiver AssessmentCaregiver is ready, willing and able to meet the patient's needs as recommended by the inter-professional team:: Yes Does the patient have an acute stroke diagnosis, or has the patient had a stroke during this admission?: No Patient's transition needs and plan for meeting these needs: anticipate return home Patient's perception of need for this admission: Medication Adherance I am convinced of the importance of my prescription medication: 0 - Agree Completely I worry that my prescription medication will do more harm than good to me : 0 - Disagree Completely I feel financially burdened by my lte-xf-cigiko expenses for my prescription medication:: 0 - Disagree Completely Risk Score: 0 Patient is categorized as: Low risk < 2 Are you interested in bedside delivery of your medications? No Is Patient Psychosocially Complex?: Yes, refer to Social Work ASSESSMENT AND PLAN: Medical Needs: Medical Needs: Two or more chronic diseases Psychosocial Needs: FREEDOM OF CHOICE EXPLAINED: [place] of Choice Given: No Reason Not Given: Unable to complete with this assessment - revisit POTENTIAL TRANSITION PLANS Home;Home Care Patient very tired and kept falling asleep at bedside. Patient is from home with . Sw left message for financial counselor and centauri due to patient being listed as self pay. SIGNATURE: SHELL [place] PATIENT NAME: Ashley Goode DATE: October 14, 2021 TIME: 2:16 PM PAGER/CONTACT #:[phone] [facility] IR NEPHROSTOMY TUBE PLACEon 10-14-[address] * * *Final Report* * * DATE OF EXAM: Oct 14 2021 12:26PM [facility] [address] / PROCEDURE REASON: Hydronephrosis * * * * Physician Interpretation * * * * PROCEDURE: GENITOURINARY CATHETER PLACEMENT Procedural Personnel Attending physician(s): Ángel Duncan D.O. Fellow physician(s): None Resident physician(s): None Advanced practice provider(s): None Medical Student(s): None Pre-procedure diagnosis: Hydronephrosis Post-procedure diagnosis: Same Indication: Urinary obstruction Catheter(s) placed because the previous catheter(s) became dislodged within 30 days of placement (QCDR): No Additional clinical history: None PROCEDURE SUMMARY - Target organ: Unilateral [place] kidney - Image-guided placement of genitourinary catheter(s) - Additional procedure(s): None PROCEDURE DETAILS: Pre-procedure Consent: Risks, benefits, treatment options, potential complications and personnel to be involved were discussed (including the risks of radiation exposure, contrast and anesthesia administration, and any equipment needed for the procedure to ensure best possible outcome) with the patient and all questions were answered and consent was obtained prior to procedure. Premedicated for contrast allergy: n/a Transfusion of blood products: No Medication reconciliation: The patient's medications and allergies were reviewed in the electronic medical record and reconciled to the proposed procedure/treatment. Catrachita-procedure discussion: The appropriate elements of the pre-procedure discussion, safety check list and sign-out were performed. Time out: A time out was performed immediately prior to procedure start with the nursing and interventional team, correctly identifying the name, date of , procedure, anatomy (including marking of site and side if applicable), patient position, procedure consent form, relevant diagnostic and radiology test results, antibiotic administration if applicable, safety precautions, and procedure-specific equipment needs. Start of procedure: 2139 End of procedure: 2224 Patient position: Prone Preparation: The site was prepared and draped using all elements of maximal sterile barrier technique including sterile gloves, sterile gown, cap, mask, large sterile sheet, sterile ultrasound probe cover, hand hygiene and cutaneous antisepsis. Antibiotics: Already on appropriate antibiotic(s) Antibiotic infusion start time: N/A Prophylactic antibiotic administered: None- patient already on suitable antibiotic regimen Additional med: IV Zofran Additional med: None Contrast Contrast agent: OMNIPAQUE 300 Contrast volume (mL): 20 Image Guidance: Fluoroscopic and sonographic guidance with digital image storage Radiation Dose FLUOROSCOPIC RADIATION SUMMARY: Plane A, Air Kerma: 4.0 mGy Fluoro Time: 0:48 min:sec Radiation dose exceed 5 Gy: No If radiation dose exceeded 5 Gy, was counseling and instructional brochure provided: N/A Anesthesia/sedation Level of anesthesia/sedation: Moderate sedation (conscious sedation) Anesthesia/sedation administered by: Independent trained observer under attending supervision with continuous monitoring of the patient?s level of consciousness and physiologic status Total intra-service sedation time (minutes): 45 Local anesthesia: 1 % lidocaine Right genitourinary catheter placement Local anesthesia was administered. A needle was advanced into an interpolar calyx under ultrasound and fluoroscopy guidance. A wire was advanced, the tract was serially dilated and a nephrostomy tube was placed. Contrast injection was performed. Genitourinary catheter placed: 8 F skater nephrostomy Findings: Moderate to severe right-sided hydronephrosis. Narrowing of the distal ureter with minimal contrast passage into the bladder, compatible with ureteral stricture. External catheter securement: Non-absorbable suture Additional genitourinary system intervention Genitourinary intervention: None Location of intervention: Not applicable Device used: Not applicable Description of intervention: Not applicable Post-intervention findings: Not applicable Additional Details Additional description of procedure: None Equipment details: None Number and Type of Removed Specimens: 0: N/A Estimated blood loss (mL): Less than 10 Standardized report: SIR_GUCatheterPlacement_ v3 Complications There were no immediate complications and no other complications. Conclusion The patient was comfortable and was transferred to the patient's previous bed in stable condition. The procedure was performed by the: attending radiologist, without an printer floor covering assistant. The attending radiologist performed the following procedural activities: Entire procedure IMPRESSION: RIGHT NEPHROSTOMY PLACEMENT. PLAN: Catheter may be allowed to drai (more content not included)... Normal [facility] BRIEF OP NOTon 10-13-2021 BRIEF OP NOT HNO ID: [id number] Author: Ángel Duncan DO, DO Service: Interventional Radiology Author Type: Physician Type: Brief Op Note Filed: 10/12/2021 11:25 PM Note Text: BRIEF OPERATIVE / PROCEDURE NOTE LOG ID: [id number] SURGERY/PROCEDURE DATE: 10/12/2021 INCISION/PROCEDURE START TIME: 10:44 PM INCISION CLOSE/PROCEDURE END TIME: 11:19 PM SURGEON(S)/PROCEDURALIST (S) AND SALAD COUNTER ATTENDANT(S): Surgeon(s) and Role: * Ángel Duncan DO, DO - Primary No Additional Staff SURGERY/PROCEDURE(S): Right percutaneous nephrostomy ANESTHESIA: Procedural Sedation FINDINGS: Right 8F x 35cm percutaneous nephrostomy catheter placed without incident. Nephrostogram demonstrated severe hydronephrosis and stricture in the distal ureter. Please refer to full dictated radiology report for further details. ESTIMATED BLOOD LOSS: <5 mls SPECIMENS: Urine sample COMPLICATIONS: None PRE-OP/PRE-PROCEDURE DIAGNOSIS: Hydronephrosis POST-OP/POST-PROCEDURE DIAGNOSIS: Same as Preop SIGNATURE: Ángel Duncan DO PATIENT NAME: Ashley Goode DATE: October 12, 2021 TIME: 11:23 PM [facility] Bacteria Ur Culton 12-26-202 1 Bacteria identified Cx Nom (U) CULTURE, URINE: No growth (<1,000 CFU/ml) Normal [facility] Comment on above: Performed By: #### 6 30-4 #### [facility] CLIA [id number] [address] Bacteria identified Cx Nom (U) CULTURE, URINE: No growth (<100 CFU/ml) Normal [facility] Comment on above: Performed By: #### 6 30-4 #### [facility] CLIA [id number] [address] Basic metabolic 2000 panelon 10-13-2021 Anion gap [Moles/Vol] 9 mmol/L Normal 9-18 [facility] Comment on above: Order Comment: Speci men Type: BLOOD SPECIMEN Performed By: #### 2 4321-2 ####[facility] [id number] [address] Calcium [Mass/Vol] 7.8 mg/dL Low 8.5-10.2 [facility] Comment on above: Order Comment: Speci men Type: BLOOD SPECIMEN Performed By: #### 2 4321-2 ####[facility] [id number] [address] STATES [facility] Chloride [Moles/Vol] 104 mmol/L Normal 97-105 [facility] Comment on above: Order Comment: Speci men Type: BLOOD SPECIMEN Performed By: #### 2 4321-2 ####[facility] [id number] [address] [place] CO2 [Moles/Vol] 20 mmol/L Low 22-30 [facility] Comment on above: Order Comment: Speci men Type: BLOOD SPECIMEN Performed By: #### 2 4321-2 ####[facility] [id number] [address] STATES OF [facility] Creatinine [Mass/Vol] 0.76 mg/dL Normal 0.58-0.96 [facility] Comment on above: Order Comment: Speci men Type: BLOOD SPECIMEN Performed By: #### 2 4321-2 ####[facility]IA [id number] [place] [address] [place] GFR/1.73 sq M.predicted MDRD (S/P/Bld) [Vol rate/Area] mL/min/{1.73_m2} Normal [facility] Comment on above: Order Comment: [facility] Type: BLOOD SPECIMEN Result Comment: >60 eGFR (Estimated GFR) Units of measure: mL/min/1.73 meters squared eGFR is derived from the reexpressed MDRD Study equation using the following parameters: serum creatinine, age, gender and race. The creatinine assay has been calibrated to be traceable to IDMS. An eGFR <60 mL/min/1.73m2 for >3 months is consistent with chronic kidney disease. Refer to KDOQI guidelines for clinical interpretation. In patients with unstable renal function, e.g. those with acute kidney injury, the eGFR may not accurately reflect actual GFR. Performed By: #### 2 4321-2 ####[facility] [id number] [place] [address] [place] Glucose [Mass/Vol] 125 mg/dL High 74-99 [facility] Comment on above: Order Comment: [facility] Type: BLOOD SPECIMEN Result Comment: The [place] Diabetes Association (ADA) provides guidance for cutoff values for fasting glucose and random glucose. The ADA defines fasting as no caloric intake for at least 8 hours. Fasting plasma glucose results between 100 to 125 mg/dL indicate increased risk for diabetes (prediabetes). Fasting plasma glucose results greater than or equal to 126 mg/dL meet the criteria for diagnosis of diabetes. In the absence of unequivocal hyperglycemia, results should be confirmed by repeat testing. In a patient with classic symptoms of hyperglycemia or hyperglycemic crisis, random plasma glucose results greater than or equal to 200 mg/dL meet the criteria for diagnosis of diabetes. Reference: Standards of Medical Care in Diabetes 2016, [place] [employer] Association. Diabetes Care. 2016.39(Suppl 1). Performed By: #### 2 4321-2 ####[facility]IA [id number] [place] [id number] [place] Potassium [Moles/Vol] Normal [facility] Comment on above: Order Comment: Speci men Type: BLOOD SPECIMEN Result Comment: Unab le to assay due to interference from hemolysis. Suggest reorder as clinically indicated. Performed By: #### 2 4321-2 ####[facility] [id number] [address] Sodium [Moles/Vol] 133 mmol/L Low 136-144 [facility] Comment on above: Order Comment: Speci men Type: BLOOD SPECIMEN Performed By: #### 2 4321-2 ####[facility] [id number] [address] Urea nitrogen [Mass/Vol] 7 mg/dL Normal 7-21 [facility] Comment on above: Order Comment: Speci men Type: BLOOD SPECIMEN Performed By: #### 2 4321-2 ####[facility] [id number] [address] CBC panel Auto (Bld)on 10-13 Erythrocyte distribution width (RBC) [Ratio] 12.8 % Normal 11.5-15.0 [facility] Comment on above: Order Comment: Speci men Type: BLOOD SPECIMEN Performed By: #### 5 8410-2 ####[facility] [id number] [address] Hematocrit (Bld) [Volume fraction] 36.0 % Normal 36.0-46.0 [facility] Comment on above: Order Comment: Speci men Type: BLOOD SPECIMEN Performed By: #### 5 8410-2 ####[facility] [id number] [address] Hemoglobin (Bld) [Mass/Vol] 12.0 g/dL Normal 11.5-15.5 [facility] Comment on above: Order Comment: Speci men Type: BLOOD SPECIMEN Performed By: #### 5 8410-2 ####[facility]CLIA [id number] [address] MCH (RBC) [Entitic mass] 30.7 pg Normal 26.0-34.0 [facility] Comment on above: Order Comment: Speci men Type: BLOOD SPECIMEN Performed By: #### 5 8410-2 ####[facility] [id number] [address] MCHC (RBC) [Mass/Vol] 33.3 g/dL Normal 30.5-36.0 [facility] Comment on above: Order Comment: Speci men Type: BLOOD SPECIMEN Performed By: #### 5 8410-2 ####[facility]CLIA [id number] [address] MCV (RBC) [Entitic vol] 92.1 fL Normal 80.0-100.0 [facility] Comment on above: Order Comment: Speci men Type: BLOOD SPECIMEN Performed By: #### 5 8410-2 ####[facility]CL[facility] [id number] [address] Nucleated RBC (Bld) [#/Vol] 10*3/uL Normal <0.01 [facility] Comment on above: Order Comment: Speci men Type: BLOOD SPECIMEN Performed By: #### 5 8410-2 ####[facility] [id number] [address] Platelet mean volume (Bld) [Entitic vol] 11.2 fL Normal 9.0-12.7 [facility] Comment on above: Order Comment: Speci men Type: BLOOD SPECIMEN Performed By: #### 5 8410-2 ####[facility] [id number] [address] Platelets (Bld) [#/Vol] 215 10*3/uL Normal 150-400 [facility] Comment on above: Order Comment: Speci men Type: BLOOD SPECIMEN Performed By: #### 5 8410-2 ####[facility] [id number] [address] RBC (Bld) [#/Vol] 3.91 10*6/uL Normal 3.90-5.20 [facility] Comment on above: Order Comment: Speci men Type: BLOOD SPECIMEN Performed By: #### 5 8410-2 ####[facility]CLIA [id number] [address] STATES OF [facility] WBC (Bld) [#/Vol] 12.61 10*3/uL High 3.70-11.00 [facility] Comment on above: Order Comment: Speci men Type: BLOOD SPECIMEN Performed By: #### 5 8410-2 ####[facility]CLIA [id number] [address] CNPNon 10-13-2021 CNPN Telephone (AKPRAD) -------- ASHLEY GOODE ([id number]) 1970 F Date Time Provider Department 10/13/21 YAN MALONEY JR During your visit today, we recorded the following information about you: Yan Maloney Jr, MD 10/13/2021 11:18 AM Signed [facility] consult Fu with dr. aly 1-2 weeks [facility] 10/15/2021 10:07 AM Signed Pt scheduled need to call and confirm appointment Pt still in hospital Allergies As of Date: 10/13/2021 Noted Allergy Reaction MORPHINE 10/17/2009 4 - Hives Date Reviewed: 10/13/2021 Reviewed by: Mandeep Laws RN - Fully Assessed Reason for Visit: Appointment [186] Prescriptions as of 10/15/2021 - traMADol 100 mg tablet Take 100 mg by mouth every 6 hours as needed for pain. - trazodone HCl (TRAZODONE ORAL) Take 20 mg by mouth. - citalopram (CELEXA) 20 mg tablet Take 20 mg by mouth once daily. - escitalopram oxalate(LEXAPRO 10 MG TAB) 1 tab daily oral - zolpidem tartrate(AMBIEN 10 MG TAB) 1 tab oral at night as needed - ACETAMINOPHEN 325 MG TAB 2 Tab ORAL EVERY 4 HOURS NEEDED for pain - IBUPROFEN 400 MG TAB one Tab ORAL 4 TIMES DAILY NEEDED for pain. take with food - DOXYCYCLINE 100 MG CAP 1 tab every 12 hours by mouth for 14 days - phenobarb/hyoscy/atropin e/scop( 16.2 MG-0.1037 MG-0.0194 MG TAB) take as directed Facility-Administered Medications as of 10/15/2021 - potassium chloride ER 40 mEq tab(s) (K-DUR, KLOR-CON) - ampicillin-sulbactam iv piggyback 3 g in NaCl 0.9% 100 mL Vial-Bag (UNASYN) - acetaminophen 325 mg-caffeine 40 mg-butalbital 50 mg 2 tablet (FIORICET) - polyethylene glycol 3350 17 g packet (MIRALAX, GLYCOLAX) - senna 8.6 mg tab(s) (SENOKOT) - bisacodyl 10 mg suppository (DULCOLAX) - lactulose 40 g CUP (DUPHALAC, CONSTULOSE) - HYDROmorphone 2 mg injection (DILAUDID) - oxyCODONE IR 5-10 mg tab(s) (ROXICODONE) - keTORolac 10 mg tab(s) (TORADOL) - acetaminophen 1,000 mg tab(s) (TYLENOL) - prochlorperazine 5 mg injection (COMPAZINE) - citalopram 20 mg tab(s) (CeleXA) - traZODone 200 mg tab(s) (DESYREL) - NaCl 0.9% iv flush bag - heparin 5,000 Units injection - sodium chloride 0.9 % (flush) 3-5 mL (BD POSIFLUSH) - NaCl 0.9% iv infusion - ondansetron (PF) 4 mg injection (ZOFRAN) - sodium chloride 0.65 % 2 [place] (AYR, OCEAN) - sodium chloride 0.9 % (flush) 5-10 mL (BD POSIFLUSH) Problem List As Of Date 10/13/2021 Noted Resolved Hydronephrosis [N13.30] 10/12/2021 Encounter Status:Closed by YAN MALONEY on 10/13/21 Normal [facility] CT ABD/PEL WO IVCONon 2020 CT ABD/PEL WO IVCON * * *Final Report* * * DATE OF EXAM: Oct 12 2021 10:20PM [facility] 0531 - CT ABD/PEL WO IVCON / PROCEDURE REASON: Hydronephrosis * * * * Physician Interpretation * * * * EXAMINATION: CT ABDOMEN AND PELVIS WITHOUT IV CONTRAST CLINICAL HISTORY: Pain TECHNIQUE: Non-IV contrast imaging of the abdomen and pelvis was performed using standard technique, scanning from just above the dome of the diaphragm to the symphysis pubis. Unenhanced imaging is limited for the evaluation of some intra-abdominal and pelvic pathology. MQ: CTAPWO_3 Contrast: IV: None : ml of CT Radiation dose: Integrated Dose-length product (DLP) for this visit = 321 mGy*cm. CT Dose Reduction Employed: Automated exposure control (AEC) COMPARISON: 10/18/2009 RESULT: Abdomen / Pelvis: Liver: Unremarkable. Biliary: The gallbladder is unremarkable. Spleen: No splenomegaly. Pancreas: Unremarkable. Adrenals: No mass. Kidneys: Moderate right hydroureteronephrosis with ectopic insertion of right ureter into the dome of the urinary bladder. Contrast within the renal collecting system and urinary bladder. GI Tract: No bowel dilation. Normal appendix. Lymph Nodes: No lymphadenopathy. Mesentery/peritoneum: No ascites. Retroperitoneum: No mass. Vasculature: Normal Pelvis: No mass or ascites. Bones/Soft Tissues: No acute abnormality. Lower thorax: Unremarkable. Core Finisher (topogram) images: No additional findings. IMPRESSION: Moderate right hydroureteronephrosis with 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 No nephroureterolithiasis within the limitations of contrast present in the collecting systems. Line Fixer: PSCB Transcribe Date/Time: Oct 12 2021 10:41P Dictated by : KENRICK BABCOCK MD This examination was interpreted and the report reviewed and electronically signed by: KENRICK BABCOCK MD on Oct 12 2021 10:53PM EST [id number] Normal [facility] ED PROV NOTEon 12-26-2021 ED PROV NOTE HNO ID: [id number] Author: Anam Forbes MD Service: Emergency Medicine Author Type: Physician Type: ED Provider Notes Filed: 10/13/2021 5:46 PM Note Text: ED Provider Note Patient Name: Ashley Goode SERVICE DATE: 10/12/21 History Patient presents with: Consult: pt arrives with c/o headaches and flank pain and is here for a urology consult due to no urlology in [place], pt has hx of kidney stones and stent placement, 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 She initially presented to [place] ER with worsening right flank pain since 10/10. She had associated dysuria and burning sensation with urination. She has had history of nephrolithiasis requiring multiple surgeries in the past as well as right ureteral reimplantation approximately 5 years ago. She is currently on prophylactic daily antibiotics for UTI prevention due to chronic infections. At history she underwent CT scan demonstrating right ureteral stricture with resultant hydroureter and severe hydronephrosis on the right side. She had associated urinary tract infection with UA positive for nitrites, leukocyte Estrace, white blood cells and bacteria. She was started on Rocephin and transferred for urologic management. Patient also notes developing severe head pain starting today. She describes pain behind her left ear that occurs as a sharp shooting sensation that takes her breath away due to how bad the pain is. Pain happens every few seconds. She denies ever experiencing pain like this before. She has no associated vision changes, numbness, tingling or weakness. No neck pain or stiffness. No hearing changes or difficulty. PAST MEDICAL HISTORY Diagnosis Date - Irritable bowel syndrome - Tubal x 2 PAST SURGICAL HISTORY Procedure Laterality Date - PAST SURGICAL HISTORY OF w/ tuboligation in 2003 - PAST SURGICAL HISTORY OF - PAST SURGICAL HISTORY OF tubal surgical removal x 2 FAMILY HISTORY Problem Relation Age of Onset - other (cva [Other]) Father - Cancer Mother Social History Tobacco Use - Smoking status: Never Smoker - Smokeless tobacco: Not on file Substance and Sexual Activity - Alcohol use: Yes Comment: social - Drug use: Not on file - Sexual activity: Not on file ALLERGIES Allergen Reactions - Morphine Hives Review of Systems Constitutional: Positive for fever. Negative for chills and fatigue. HENT: Negative for congestion and sore throat. Respiratory: Negative for cough and shortness of breath. Cardiovascular: Negative for chest pain and leg swelling. Gastrointestinal: Positive for nausea. Negative for abdominal pain, constipation, diarrhea and vomiting. Genitourinary: Positive for dysuria, flank pain, frequency and urgency. Negative for hematuria. Skin: Negative for rash. Neurological: Positive for headaches. Negative for syncope, weakness and light-headedness. Physical Exam Vitals [10/12/214] BP Pulse Temp Temp src Resp SpO2 Weight Height 117/62 (!) 110 37.3 ?C (99.2 ?F) Oral 18 96 % 68.5 kg (151 lb) 1.626 m (5' 4) Physical Exam Vitals and nursing note reviewed. Constitutional: General: She is not in acute distress. Appearance: She is well-developed. She is not diaphoretic. Comments: Appears uncomfortable, crying out intermittently endorsing pain on the left side of her head as well as her back. HENT: Head: Normocephalic and atraumatic. Comments: No point tenderness over the area of pain behind her left ear. No mastoid tenderness. No fluctuance or overlying erythema. Eyes: General: No scleral icterus. Conjunctiva/sclera: Conjunctivae normal. Pupils: Pupils are equal, round, and reactive to light. Neck: Thyroid: No thyromegaly. Trachea: No tracheal deviation. Cardiovascular: Rate and Rhythm: Normal rate and regular rhythm. Heart sounds: Normal heart sounds. No murmur heard. No friction rub. No gallop. Pulmonary: Effort: Pulmonary effort is normal. No respiratory distress. Breath sounds: Normal breath sounds. No wheezing or rales. Abdominal: General: There is no distension. Palpations: Abdomen is soft. Tenderness: There is no abdominal tenderness. There is no guarding. Comments: Right flank tenderness to percussion Musculoskeletal: Cervical back: Normal range of motion. Skin: General: Skin is warm and dry. Findings: No erythema or rash. Neurological: Mental Status: She is alert and oriented to person, place, and time. Comments: No neck rigidity or stiffness. Cranial nerves II through XII intact. No facial asymmetry. Strength and sensation intact in bilateral upper and lower extremities. Answers all questions appropriately. Diagnostic Testing ED Labs Ordered and Reviewed BASIC METABOLIC PNL - Abnormal; Notable for the following components: Result Value Ref Range Glucose 11 (more content not included)... Normal [facility] HCG ( test) Ql (U)o n 10-13-2021 Specific gravity (U) [Rel density] >1.030 High 1.005-1.030 [facility] Comment on above: Order Comment: Speci men Type: URINE SPECIMEN Result Comment: If s pecific gravity is <1.005 then results may be falsely negative. Serum HCG is recommended. Performed By: #### 2 106-3 ####[facility]ATORYCLIA [id number] [address] HCG Preg Ur Qlon 10-13-2021 HCG ( test) Ql (U) Negative Normal Negative [facility] Comment on above: Order Comment: Speci men Type: URINE SPECIMEN Result Comment: This test is intended to aid in the early detection of . Very dilute urine samples, as indicated by a low specific gravity, may not contain insurance follow up representative levels of hCG. This test detects intact hCG only. This test does not reliably detect hCG degradation products, including free-beta subunit and beta-core fragment. Therefore, this test may show reduced reactivity in urine after 8 weeks gestation. A number of conditions other than , including trophoblastic disease and certain non-trophoblastic neoplasms cause elevated levels of hCG. As with any assay employing mouse antibodies, the possibility exists for interference by human anti-mouse antibodies (HAMA) in the specimen. The test provides a presumptive diagnosis for . Performed By: #### 2 106-3 ####[facility] LABORATORYCLIA [id number] [address] [place] HISTORY PHYSICALon HISTORY PHYSICAL HNO ID: [id number] Author: Ángel Duncan DO, Service: Interventional Radiology Author Type: Physician Type: HANDP Filed: 10/12/2021 10:52 PM Note Text: UPDATED HISTORY AND PHYSICAL EXAMINATION SERVICE DATE: 10/12/2021 SERVICE TIME: 1045 PHYSICAL EXAM MUST BE COMPLETED ON ADMISSION PROCEDURE SCHEDULED: Procedure(s) with comments: PTN (Right) - ED 8 RADIOLOGY ORDER PLACED: The History and Physical (completed in the past 30 days) has been reviewed and the patient has been examined. The contents accurately reflect the patient's condition with the following additions or revisions since the HANDP was completed. Examination indicates no changes. This HANDP can be found in the Electronic Medical Record dated 10/12/2021. SIGNATURE: Ángel Duncan DO PATIENT NAME: Ashley Goode DATE: October 12, 2021 TIME: 10:52 PM PAGER: Normal [facility] HISTORY PHYSICAL HNO ID: [id number] Author: Johnathon Lee II, MD Service: Hospital Medicine Author Type: Physician Type: HANDP Filed: 10/13/2021 1:23 AM Note Text: DEPARTMENT OF HOSPITAL MEDICINE HISTORY AND PHYSICAL EXAM SERVICE DATE: 10/12/2021 SERVICE TIME: 10:26 PM Primary Care Physician: RICCARDO Mattson NIGHT AND WEEKEND COVERAGE: From 7am - 7pm, please call Sound attending After 7pm, please call cross cover pager #[phone] Subjective CHIEF COMPLAINT: Right flank pain, fever/chills, nausea/vomiting, pain behind her left ear. HPI: This is a 50 year old female who presented to the hospital with complaint of worsening right flank pain, nausea/vomiting, fevers, and and pain behind her left ear starting on . Patient states she has an extensive history of kidney stones and previously had a right nephrostomy tube for time. She was taken for the ED to IR where another right nephrostomy tube was placed. She denies any dysuria. Patient states that while her right flank hurts the pain behind her left ear is worse. She states she has never had this kind of pain before, and denies any drainage from her ear, loss of hearing, ringing in the ears, complaint of fullness in the ears, nasal congestion or discharge. She denies any numbness/tingling/focal weakness, change in vision, vertigo, lightheadedness, difficulty swallowing. She denies chest pain, palpitations, cough, recent illnesses, diarrhea or other compaints In the ED, labs revealed WBCs of 14.9, K of 3.3, Cr of 0.98 (baseline?). UA at [place] was indicative of UTI. CT head at [place] showed severe paranasal sinus disease. CT Abd showed severe right-sided hydronephrosis and moderate hydroureter possible 2/2 stricture with association inflammation/infection. She was given dilaudid 1.0 mg x1 and 0.5 mg x2, 1L NS, 300 mg of gentamicin and was started on ceftriaxone. REVIEW OF SYSTEM: All ROS are negative except those noted in HPI. All pertinent labs and imaging reviewed. Pertinent medical records reviewed. ASSESSMENT AND PLAN: 1) Right hydroureteronephrosis - s/p percutaneous nephrostomy placement by IR - IV fluids - antiemetics - pain control - repeat CBC, BMP in am - Urology following 2) UTI - IV fluids - IV ceftriaxone - repeat CMP 3) Hypokalemia - Will give 20 mEq KCl - Repeat BMP in am 4) Paranasal sinusitis - IV Ceftriaxone - Nasal saline spray PRN - tylenol - pain control VTE Prophylaxis: Heparin 5000 units Sub Q BID Plan of care discussed with: Patient Code status: FULL Automated System Data and Physical Exam Below ######################## ######################## ###### ######################## ######################## ###### ######################## ######################## ###### PAST MEDICAL HISTORY Diagnosis Date - Irritable bowel syndrome - Tubal x 2 PAST SURGICAL HISTORY Procedure Laterality Date - PAST SURGICAL HISTORY OF w/ tuboligation in 2003 - PAST SURGICAL HISTORY OF - PAST SURGICAL HISTORY OF tubal surgical removal x 2 FAMILY HISTORY Problem Relation Age of Onset - other (cva [Other]) Father - Cancer Mother Social History Tobacco Use - Smoking status: Never Smoker - Smokeless tobacco: Not on file Substance Use Topics - Alcohol use: Yes Comment: social - Drug use: Not on file HOME MEDICATIONS: Prior to Admission Medications Prescriptions Last Dose Informant Patient Reported? Taking? ACETAMINOPHEN 325 MG TAB Yes No Si Tab ORAL EVERY 4 HOURS NEEDED for pain DOXYCYCLINE 100 MG CAP No No Si tab every 12 hours by mouth for 14 days IBUPROFEN 400 MG TAB Yes No Sig: one Tab ORAL 4 TIMES DAILY NEEDED for pain. take with food escitalopram oxalate(LEXAPRO 10 MG TAB) Yes No Si tab daily oral phenobarb/hyoscy/atropin e/scop( 16.2 MG-0.1037 MG-0.0194 MG TAB) Yes No Sig: take as directed zolpidem tartrate(AMBIEN 10 MG TAB) Yes No Si tab oral at night as needed Facility-Administered Medications: None ALLERGIES Allergen Reactions - Morphine Hives Objective PHYSICAL EXAM: BP 105/64 Pulse 109 Temp (Src) 99.2 (Oral) Resp 23 Ht 5' 4 (1.63m) Wt 151 lb (68.5kg) SpO2 96% BMI 25.91 kg/(m2). O2 Therapy: Room Air GENERAL: Alert, no distress, cooperative, NAD SKIN: Warm, dry intact, no open lesions, no rashes HEAD/SINUSES: Normocephalic, atraumatic, oral mucosa moist, severe tenderness in a small spot behind the left ear. No obvious bruises, scratches or other anomalies on that area of the scalp. No obvious discharge or tenderness of the outer ear. EYES: PERRLA, EOMI NECK: No jugulovenous distention, Supple, no adenopathy LUNGS: Lungs clear to auscultation, no wheezes, ronchi, or rales CARDIAC: RRR, Normal S1 and S2; no rubs, murmurs, or gallops ABDOMEN: Abdomen soft, BS normal, No masses or organomegaly, diffuse abdominal tenderness (R > L), right neph (more content not included)... Normal [facility] POTASSIUM BLDon 10-13-2021 Potassium [Moles/Vol] 3.4 mmol/L Low 3.7-5.1 [facility] Comment on above: Order Comment: Speci men Type: BLOOD SPECIMEN Performed By: #### K 1 ####[facility] LABORATORYCLIA [id number] [place] [address] [place] SARS-CoV-2 RNA Resp Ql MIQUEL+p robeon 10-13-2021 SARS-CoV-2 (COVID-19) RNA MIQUEL+probe Ql (Resp) COVID 19 RESULT: SARS-CoV-2 (Agent of COVID-19) Not Detected by PCR. This test has been authorized by FDA under an Emergency Use Authorization (EUA). Normal [facility] Comment on above: Performed By: #### 9 4500-6 #### [facility] CLIA [id number] [place] Basic metabolic 2000 panelon 10-12-2021 Anion gap [Moles/Vol] 14 mmol/L Normal 9-18 [facility] Comment on above: Order Comment: Speci men Type: BLOOD SPECIMEN Performed By: #### 2 4321-2 ####[facility]ORATORYCLIA [id number] [address] STATES OF [facility] Calcium [Mass/Vol] 8.3 mg/dL Low 8.5-10.2 [facility] Comment on above: Order Comment: Speci men Type: BLOOD SPECIMEN Performed By: #### 2 4321-2 ####[facility]ORATORYCLIA [id number] [place] [address] [place] Chloride [Moles/Vol] 103 mmol/L Normal 97-105 [facility] Comment on above: Order Comment: Speci men Type: BLOOD SPECIMEN Performed By: #### 2 4321-2 ####[facility]ORATORYCLIA [id number] [place] [address] [place] CO2 [Moles/Vol] 19 mmol/L Low 22-30 [facility] Comment on above: Order Comment: Speci men Type: BLOOD SPECIMEN Performed By: #### 2 4321-2 ####[facility]ORATORYCLIA [id number] [address] [place] Creatinine [Mass/Vol] 0.98 mg/dL High 0.58-0.96 [facility] Comment on above: Order Comment: Speci men Type: BLOOD SPECIMEN Performed By: #### 2 4321-2 ####[facility]ORATORYCLIA [id number] [place] [address] [place] GFR/1.73 sq M.predicted MDRD (S/P/Bld) [Vol rate/Area] mL/min/{1.73_m2} Normal [facility] Comment on above: Order Comment: Speci men Type: BLOOD SPECIMEN Result Comment: >60 eGFR (Estimated GFR) Units of measure: mL/min/1.73 meters squared eGFR is derived from the reexpressed MDRD Study equation using the following parameters: serum creatinine, age, gender and race. The creatinine assay has been calibrated to be traceable to IDMS. An eGFR <60 mL/min/1.73m2 for >3 months is consistent with chronic kidney disease. Refer to KDOQI guidelines for clinical interpretation. In patients with unstable renal function, e.g. those with acute kidney injury, the eGFR may not accurately reflect actual GFR. Performed By: #### 2 4321-2 ####[facility] [id number] [place] [address] [place] Glucose [Mass/Vol] 113 mg/dL High 74-99 [facility] Comment on above: Order Comment: Speci men Type: BLOOD SPECIMEN Result Comment: The [place] [employer] (ADA) provides guidance for cutoff values for fasting glucose and random glucose. The ADA defines fasting as no caloric intake for at least 8 hours. Fasting plasma glucose results between 100 to 125 mg/dL indicate increased risk for diabetes (prediabetes). Fasting plasma glucose results greater than or equal to 126 mg/dL meet the criteria for diagnosis of diabetes. In the absence of unequivocal hyperglycemia, results should be confirmed by repeat testing. In a patient with classic symptoms of hyperglycemia or hyperglycemic crisis, random plasma glucose results greater than or equal to 200 mg/dL meet the criteria for diagnosis of diabetes. Reference: Standards of Medical Care in Diabetes 2016, [place] [employer]. Diabetes Care. 2016.39(Suppl 1). Performed By: #### 2 4321-2 ####[facility]ORATORYCLIA [id number] [place] [address] [place] Potassium [Moles/Vol] 3.3 mmol/L Low 3.7-5.1 [facility] Comment on above: Order Comment: Speci men Type: BLOOD SPECIMEN Performed By: #### 2 4321-2 ####[facility]ORATORYCLIA [id number] [address] Sodium [Moles/Vol] 136 mmol/L Normal 136-144 [facility] Comment on above: Order Comment: Speci men Type: BLOOD SPECIMEN Performed By: #### 2 4321-2 ####[facility]ORATORYCLIA [id number] [address] Urea nitrogen [Mass/Vol] 7 mg/dL Normal 7-21 [facility] Comment on above: Order Comment: Speci men Type: BLOOD SPECIMEN Performed By: #### 2 4321-2 ####[facility] LABORATORYCLIA [id number] [address] CONSULTon 10-12-2021 CONSULT HNO ID: [id number] Author: David Medina MD Service: Urology Author Type: Resident Type: Consults Filed: 10/12/2021 8:47 PM Note Text: -------- Attestation signed by Yan Maloney Jr., MD at 10/13/2021 11:16 AM I saw and evaluated the patient. Discussed with the resident and agree with resident's findings and plan as documented in the resident's note. Yan Maloney Jr, MD -------- Urology Inpatient Consultation 10/12/2021 HISTORY OF PRESENT ILLNESS: The patient is a 50 year old female not known to the [facility] Urology service who presented to the ED as a transfer from [facility] for right sided hydronephrosis. Patient reports worsening right flank pain since 10/10. Describes dysuria and burning with urination. Describes history of nephrolithiasis requiring multiple surgeries. States that she underwent a right ureteral reimplantation approximately 5 years ago. Currently on prophylactic antibiotic daily for UTI prevention (patient unable to recall). While at the [place] ED, patient was febrile to 100.4F and tachycardic to 108. CT imaging revealed severe right sided hydronephrosis and moderate hydroureter due to possible mid-ureteral stricture. CT of the brain revealed moderately severe paranasal sinus disease. Labs remarkable for leukocytosis to 14.9 and Cr 1.16. UA was positive for nitrites, leukocyte esterase, RBC, WBC, and bacteria. She was started on Rocephin and sent to [facility] for further management. PAST MEDICAL HISTORY: PAST MEDICAL HISTORY Diagnosis Date - Irritable bowel syndrome - Tubal x 2 PAST SURGICAL HISTORY: PAST SURGICAL HISTORY Procedure Laterality Date - PAST SURGICAL HISTORY OF w/ tuboligation in 2003 - PAST SURGICAL HISTORY OF - PAST SURGICAL HISTORY OF tubal surgical removal x 2 ALLERGIES: ALLERGIES Allergen Reactions - Morphine Hives HOME MEDICATIONS: (Not in a hospital admission) FAMILY HISTORY: Family History Problem Relation Age of Onset - other (cva [Other]) Father - Cancer Mother Social History: Tobacco Use: Never Alcohol Use: Yes (social) ROS: Constitutional: positive for fevers, negative for chills HEENT: no blurry vision or eye redness Respiratory: negative for hemoptysis and shortness of breath Cardiovascular: negative for dyspnea and syncope Gastrointestinal: negative for jaundice, nausea and vomiting Genitourinary: positive for flank pain and dysuria; negative for hematuria Hematologic/lymphatic: negative for bleeding Integumentary: no new bruises or lesions Musculoskeletal:negative for muscle weakness Neurological: negative for lightheadedness and dizziness All other systems negative PHYSICAL EXAM: VITALS: 10/12/21 1814 BP: 117/62 Pulse: (!) 110 Resp: 18 Temp: 37.3 ?C (99.2 ?F) TempSrc: Oral SpO2: 96% Weight: 68.5 kg (151 lb) Height: 162.6 cm (5' 4) General: Alert, in no acute distress Head: Normocephalic, atraumatic Neck: supple, trachea is midline, no obvious masses Respiratory: normal effort, no audible wheezes Cardiovascular: regular pulse and no cyanosis Musculoskeletal: moving all extremities, normal tone Skin: warm and dry Psych: normal mood and affect, oriented Abdomen: soft, non distended, non tender, no rebounding or guarding : moderate right flank TTP, no left flank TTP. No suprapubic tenderness. DATA: LABS: BMP: . Glucose (mg/dL) Date Value 10/19/2009 84 Potassium (mmol/L) Date Value 10/19/2009 3.5 Sodium (mmol/L) Date Value 10/19/2009 140 Chloride (mmol/L) Date Value 10/19/2009 106 CO2 (mmol/L) Date Value 10/19/2009 23 Creatinine (mg/dL) Date Value 10/19/2009 0.75 BUN (mg/dL) Date Value 10/19/2009 7 Anion Gap (mmol/L) Date Value 10/19/2009 11 Calcium (mg/dL) Date Value 10/19/2009 8.6 CBC: Hemoglobin (g/dL) Date Value 10/19/2009 11.9 Hematocrit (%) Date Value 10/19/2009 35.6 WBC (k/uL) Date Value 10/19/2009 6.09 Platelet Count (k/uL) Date Value 10/19/2009 228 Urinalysis: Specific [place], Ur Date Value Ref Range Status 10/17/2009 1.009 1.005 - 1.030 Final Glucose, Urine Date Value Ref Range Status 10/17/2009 Negative NEGAT mg/dL Final Bilirubin, Urine Date Value Ref Range Status 10/17/2009 Negative NEGAT Final Ketones, Urine Date Value Ref Range Status 10/17/2009 Negative NEGAT Final Hemoglobin/Blood,Ur Date Value Ref Range Status 10/17/2009 Negative NEGAT Final Protein, Urine Date Value Ref Range Status 10/17/2009 Negative NEGAT mg/dL Final Nitrites Date Value Ref Range Status 10/17/2009 Negative NEGAT Final WBC, Urine Date Value Ref Range Status 10/17/2009 0-5 R05 /HPF Final Urine Culture: ordered RADIOLOGY: CT A/P W IV Contrast (10/12): Impress (more content not included)... Normal [facility] ED PROV NOTEon 10-12-2021 ED PROV NOTE HNO ID: [id number] Author: Anam Forbes MD Service: Emergency Medicine Author Type: Physician Type: ED Provider Notes Filed: 10/12/2021 10:39 PM Note Text: Attending Note I evaluated the patient and personally participated in the vivar components. I agree with the resident's findings and plan as documented except where my note differs, and I discussed the case and management of the patient's care with the resident. Patient was transferred here from the [place] emergency department for further evaluation and management, mostly for evaluation and management of her hydroureter and pyelonephritis Patient describes symptoms that began on 2 days ago with gradual onset of right flank pain and later that night she developed a dull pain behind her left ear. She is also had associated fever. She has had nausea without vomiting. No numbness tingling or weakness. She had a CT scan at [place] which was negative of her head and CT scan that showed hydroureter and pyelonephritis. She has a history of TIA. She has no neurologic deficits previously. 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 The headache was gradual in onset and is now very localized pinpoint posterior to the left ear and has intermittent periodic intensification for a second or 2 at which time she cries out Exam Pupils equal round reactive light. Extraocular movements intact. She has clear left TM. She is mildly tender posterior to the left ear left occipital area. Mastoid however is not tender. There is no redness or swelling or lesion. She has no meningismus and she has good range of motion of her neck. Heart regular rate rhythm without murmurs rubs gallops. Lungs clear to auscultation without wheeze rhonchi crackles. She is alert and oriented x3. Her cranial nerves are intact. She has normal [id number] she has no motor or sensory deficits in her extremities. Etiology of headache not entirely clear. No focal deficits. Could be related to her urologic infection. Will defer to inpatient team and address her obstructed pyelonephritis first with urology/interventional radiology. She has already been started on antibiotics--ceftriaxone . HDCT shows sinusitis; however, her head pain is atypical for sinusitis. Anam Forbes MD 10/12/21 2239 Normal [facility] PT panel Coag (PPP)on 2020 INR Coag (PPP) [Relative time] 1.0 {INR} Normal 0.9-1.3 [facility] Comment on above: Order Comment: Speci men Type: BLOOD SPECIMEN Result Comment: Leann min K Antagonist (VKA) Therapeutic Range: INR 2 to 3 (Target INR of 2.5) Note: For patients treated with VKA drugs, such as warfarin, the [place] [employer] 2012 Guideline recommends a therapeutic INR range of 2 to 3 (target INR of 2.5). This recommendation includes high-risk patients with antiphospholipid syndrome with previous arterial or venous thromboembolism, current-generation mechanical or bioprosthetic aortic heart valve replacement. Note: Patients with mechanical aortic valve replacement and additional risk factors for thromboembolic events (atrial fibrillation, previous thromboembolism, LV dysfunction, hypercoagulable conditions) or an older generation mechanical AVR (i.e., ball in-Cage) or any mechanical MVR should have a INR therapeutic range of 2.5 to 3.5 (target INR of 3). Sarah GH, et al. Chest 2012, 141:7S-47S Heather RA, et al. [facility] 2017, 70: 252-289 Performed By: #### 3 4528-0 ####[facility]ORATORYCLIA [id number] [place] [address] [place] PT Coag (PPP) [Time] 10.6 s Normal 9.7-13.0 [facility] Comment on above: Order Comment: Speci men Type: BLOOD SPECIMEN Performed By: #### 3 4528-0 ####[facility]ORATORYCLIA [id number] [place] [address] [place] Culture, urine Bacteria identified Cx Nom (U) Culture exhibits no growth. [facility] Work Phone: Vital Signs Date Time Vital Sign Value Performing Clinician Facility 07-13-2025 15:06-0400 Body height 163 cm Lizy Perdomo APRN-CREATIVE WRITING TEACHER Work Phone: [facility] 07-13-2025 15:06-0400 Body height 162.56 cm Lizy Dulgar PRESS OPERATOR AUTOMATIC-CREATIVE WRITING TEACHER Work Phone: [facility] 07-13-2025 15:06-0400 Body mass index (BMI) [Ratio] 29.97 kg/m2 Lizy Leanne PRESS OPERATOR AUTOMATIC-CREATIVE WRITING TEACHER Work Phone: [facility] 07-13-2025 15:06-0400 Body weight 79 kg Lizy Leanne PRESS OPERATOR AUTOMATIC-CREATIVE WRITING TEACHER Work Phone: [facility] 07-13-2025 15:06-0400 Body weight 78.93 kg Lizy Rayshawnlala PRESS OPERATOR AUTOMATIC-CREATIVE WRITING TEACHER Work Phone: [facility] 07-13-2025 15:06-0400 BP SITE #1 Lizy Perdomo PRESS OPERATOR AUTOMATIC-CREATIVE WRITING TEACHER Work Phone: [facility] 07-13-2025 15:06-0400 Diastolic blood pressure 69 mm[Hg] Lizy Perdomo PRESS OPERATOR AUTOMATIC-CREATIVE WRITING TEACHER Work Phone: [facility] 07-13-2025 15:06-0400 Heart rate 98 /min Lizy Perdomo PRESS OPERATOR AUTOMATIC-CREATIVE WRITING TEACHER Work Phone: [facility] 07-13-2025 15:06-0400 HGHTCHNVIS Lizy Perdomo PRESS OPERATOR AUTOMATIC-CREATIVE WRITING TEACHER Work Phone: [facility] 07-13-2025 15:06-0400 Systolic blood pressure 104 mm[Hg] Lizy Perdomo PRESS OPERATOR AUTOMATIC-CREATIVE WRITING TEACHER Work Phone: [facility] 07-13-2025 15:06-0400 VITALSDONE Lizy Tabaresgar PRESS OPERATOR AUTOMATIC-CREATIVE WRITING TEACHER Work Phone: [facility] 07-06-2025 10:16-0400 Body height 162.[address] Dov Meade DO Work Phone: [facility] 07-06-2025 10:16-0400 Body mass index (BMI) [Ratio] 33.6 kg/m2 Dr. Dov Meade DO Work Phone: [facility] 07-06-2025 10:16-0400 Body temperature 97.9 [degF] Dr. Dov Meade DO Work Phone: [facility] 07-06-2025 10:16-0400 Body weight 88.[address] Dov Meade DO Work Phone: [facility] 07-06-2025 10:16-0400 Diastolic blood pressure 78 mm[Hg] Dr. Dov Meade DO Work Phone: [facility] 07-06-2025 10:16-0400 Heart rate 97 /min Dr. Dov Meade DO Work Phone: [facility] 07-06-2025 10:16-0400 SaO2% (BldA) [Mass fraction] 94 % Dr. Dov Meade DO Work Phone: [facility] [facility] 10:16-0400 Systolic blood pressure 125 mm[Hg] Dr. Dov Meade DO Work Phone: [facility] 01-03-2025 20:57-0400 Body temperature 98.5 [degF] Dr. Dov Meade DO Work Phone: [facility] 01-03-2025 20:57-0400 Diastolic blood pressure 72 mm[Hg] Dr. Dov Meade DO Work Phone: [facility] 01-03-2025 20:57-0400 Heart rate 70 /min Dr. Dov Meade DO Work Phone: [facility] 01-03-2025 20:57-0400 Respiratory rate 18 /min Dr. Dov Meade DO Work Phone: [facility] 01-03-2025 20:57-0400 SaO2% (BldA) [Mass fraction] 97 % Dr. Dov Meade DO Work Phone: [facility] 01-03-2025 20:57-0400 Systolic blood pressure 114 mm[Hg] Dr. Dov Meade DO Work Phone: [facility] 01-03-2025 16:14-0400 Body height 162.[address] Dov Meade DO Work Phone: [facility] 01-03-2025 16:14-0400 Body mass index (BMI) [Ratio] 29.2 kg/m2 Dr. Dov Meade DO Work Phone: [facility] 01-03-2025 16:14-0400 Body weight 77.[address] Dov Meade DO Work Phone: [facility] 10-28-2024 11:15-0500 Diastolic blood pressure 69 mm[Hg] Dr. Dov Meade DO Work Phone: [facility] 10-28-2024 11:15-0500 Heart rate 79 /min Dr. Dov Meade DO Work Phone: [facility] 10-28-2024 11:15-0500 Respiratory rate 16 /min Dr. Dov Meade DO Work Phone: [facility] 10-28-2024 11:15-0500 SaO2% (BldA) [Mass fraction] 96 % Dr. Dov Meade DO Work Phone: [facility] 10-28-2024 11:15-0500 Systolic blood pressure 123 mm[Hg] Dr. Dov Meade DO Work Phone: [facility] 10-28-2024 11:13-0500 Body temperature 97 [degF] Dr. Dov Meade DO Work Phone: [facility] 10-28-2024 09:05-0500 Body mass index (BMI) [Ratio] 33.3 kg/m2 Dr. Dov Meade DO Work Phone: [facility] 10-28-2024 09:05-0500 Body weight [address] Dov Meade DO Work Phone: [facility] 02-26-2024 11:25-0400 Body temperature 98.06 [degF] UCHE RUBIN DO [facility] 02-26-2024 11:25-0400 Diastolic Blood Pressure Non-Invasive 87 mm[Hg] UCHE RUBIN DO [facility] 02-26-2024 11:25-0400 Heart rate 104 /min UCHE RUBIN DO [facility] 02-26-2024 11:25-0400 Respiratory rate 16 /min UCHE RUBIN DO [facility] 02-26-2024 11:25-0400 Systolic Blood Pressure Non-Invasive 117 mm[Hg] UCHE RUBIN DO [facility] 02-26-2024 05:57-0400 Body temperature 98.06 [degF] UCHE RUBIN DO [facility] 02-26-2024 05:57-0400 Diastolic Blood Pressure Non-Invasive 75 mm[Hg] UCHE RUBIN DO [facility] 02-26-2024 05:57-0400 Heart rate 102 /min UCHE RUBIN DO [facility] 02-26-2024 05:57-0400 Respiratory rate 16 /min UCHE RUBIN DO [facility] 02-26-2024 05:57-0400 Systolic Blood Pressure Non-Invasive 112 mm[Hg] UCHE RUBIN DO [facility] 02-25-2024 23:13-0400 Body temperature 98.06 [degF] UCHE RUBIN DO [facility] 02-25-2024 23:13-0400 Diastolic Blood Pressure Non-Invasive 81 mm[Hg] UCHE RUBIN DO [facility] 02-25-2024 23:13-0400 Heart rate 106 /min UCHE RUBIN DO [facility] 02-25-2024 23:13-0400 Respiratory rate 16 /min UCHE RUBIN DO [facility] 02-25-2024 23:13-0400 Systolic Blood Pressure Non-Invasive 131 mm[Hg] UCHE RUBIN DO [facility] 02-25-2024 03:34-0400 Heart rate 108 /min UCHE RUBIN DO [facility] 02-24-2024 22:37-0400 Heart rate 112 /min UCHE RUBIN DO [facility] 02-24-2024 19:00-0400 Heart rate 116 /min UCHE RUBIN DO [facility] 02-24-2024 13:59-0400 Body height 162.5 cm UCHE RUBIN DO [facility] 02-24-2024 13:59-0400 Body weight 89.1 kg UCHE RUBIN DO [facility] 02-24-2024 13:59-0400 Body weight 33.74 kg/m2 UCHE RUBIN DO [facility] 02-24-2024 13:21-0400 Body temperature 97.52 [degF] UCHE RUBIN DO [facility] 02-24-2024 12:02-0400 Body temperature 97.88 [degF] UCHE RUBIN DO [facility] 02-24-2024 11:55-0400 Respiratory Rate - Anes 0 br/min UCHE RUBIN DO [facility] 02-24-2024 11:50-0400 Respiratory Rate - Anes 12 br/min UCHE RUBIN DO [facility] 02-24-2024 11:45-0400 Body temperature 97.34 [degF] UCHE RUBIN DO [facility] 02-24-2024 11:45-0400 Respiratory Rate - Anes 8 br/min UCHE RUBIN DO [facility] 02-24-2024 11:40-0400 Body temperature 97.34 [degF] UCHE RUBIN DO [facility] 02-24-2024 11:35-0400 Body temperature 97.32 [degF] UCHE RUBIN DO [facility] 02-24-2024 08:25-0400 Body weight 33.74 kg/m2 UCHE RUBIN DO [facility] 02-24-2024 08:13-0400 Body height 162.5 cm UCHE RUBIN DO [facility] 02-24-2024 08:13-0400 Body temperature 98.24 [degF] UCHE RUBIN DO [facility] 02-24-2024 08:13-0400 Body weight 89.1 kg UCHE RUBIN DO [facility] 02-24-2024 08:13-0400 Heart rate 85 /min UCHE RUBIN DO [facility] 02-11-2024 11:14-0400 Blood Pressure Location UCHE RUBIN DO [facility] 02-11-2024 11:14-0400 Body height 162.6 cm UCHE RUBIN DO [facility] 02-11-2024 11:14-0400 Body weight 79.5 kg UCHE RUBIN DO [facility] 02-11-2024 11:14-0400 Body weight 30.07 kg/m2 UCHE RUBIN DO [facility] 02-11-2024 11:14-0400 Diastolic Blood Pressure Non-Invasive 67 mm[Hg] UCHE RUBIN DO [facility] 02-11-2024 11:14-0400 Heart rate 93 /min UCHE RUBIN DO [facility] 02-11-2024 11:14-0400 Respiratory rate 20 /min UCHE RUBIN DO [facility] 02-11-2024 11:14-0400 Systolic Blood Pressure Non-Invasive 119 mm[Hg] UCHE RUBIN DO [facility] 06-17-2022 09:00-0400 Body temperature 98.5 [degF] [facility] Work Phone: 06-17-2022 09:00-0400 Diastolic blood pressure 76 mm[Hg] [facility] Work Phone: 06-17-2022 09:00-0400 Heart rate 77 /min [facility] Work Phone: 06-17-2022 09:00-0400 Respiratory rate 14 /min [facility] Work Phone: 06-17-2022 09:00-0400 SaO2% (BldA) [Mass fraction] 96 % [facility] Work Phone: 06-17-2022 09:00-0400 Systolic blood pressure 96 mm[Hg] [facility] Work Phone: 06-16-2022 16:10-0400 Body height 162.56 cm [facility] Work Phone: 06-16-2022 16:10-0400 Body mass index (BMI) [Ratio] 29 kg/m2 [facility] Work Phone: 06-16-2022 16:10-0400 Body weight 76.81 kg [facility] Work Phone: 06-16-2022 10:36-0400 Body height 162.56 cm [facility] Work Phone: 06-16-2022 10:36-0400 Body mass index (BMI) [Ratio] 26.1 kg/m2 [facility] Work Phone: 06-16-2022 10:36-0400 Body temperature 98 [degF] [facility] Work Phone: 06-16-2022 10:36-0400 Body weight 68.94 kg [facility] Work Phone: 06-16-2022 10:36-0400 Diastolic blood pressure 94 mm[Hg] [facility] Work Phone: 06-16-2022 10:36-0400 Heart rate 77 /min [facility] Work Phone: 06-16-2022 10:36-0400 Respiratory rate 18 /min [facility] Work Phone: 06-16-2022 10:36-0400 SaO2% (BldA) [Mass fraction] 99 % [facility] Work Phone: 06-16-2022 10:36-0400 Systolic blood pressure 121 mm[Hg] [facility] Work Phone: 03-15-2022 10:50-0400 Diastolic blood pressure 75 mm[Hg] [facility] Work Phone: 03-15-2022 10:50-0400 Heart rate 64 /min [facility] Work Phone: 03-15-2022 10:50-0400 Respiratory rate 18 /min [facility] Work Phone: 03-15-2022 10:50-0400 SaO2% (BldA) [Mass fraction] 99 % [facility] Work Phone: 03-15-2022 10:50-0400 Systolic blood pressure 109 mm[Hg] [facility] Work Phone: 03-15-2022 08:37-0400 Body height 162.56 cm [facility] Work Phone: 03-15-2022 08:37-0400 Body mass index (BMI) [Ratio] 27.1 kg/m2 [facility] Work Phone: 03-15-2022 08:37-0400 Body temperature 98.5 [degF] [facility] Work Phone: 03-15-2022 08:37-0400 Body weight 71.81 kg [facility] Work Phone: Encounters Encounter Date Encounter Type Care Provider Facility Start: 08-10-2025 ambulatory Dov Meade Facility: [facility] Start: 07-27-2025 End: 07-31-2025 ambulatory DOV MEADE DO Facility:[facility] Start: 07-27-2025 End: 07-31-2025 Outreach Lab NINA CLEARY DO [facility] Start: 07-20-2025 End: 07-20-2025 ambulatory DOV MEADE DO Facility:[facility] Start: 07-20-2025 End: 07-20-2025 Patient encounter procedure ROSSI MCGREGOR [facility] Start: 07-17-2025 End: 07-17-2025 ambulatory DOV MEADE DO [facility] Start: 07-17-2025 End: 07-17-2025 Patient encounter procedure ROSSI HESSCREATIVE WRITING TEACHER [facility] Start: 07-13-2025 Visit out of hours Lizy Leanne PRESS OPERATOR AUTOMATIC-CREATIVE WRITING TEACHER Work Phone: [facility] [employer] [facility] Work Phone: Start: 07-13-2025 In-person encounter Lizy Perdomo PRESS OPERATOR AUTOMATIC-CREATIVE WRITING TEACHER Work Phone: [facility] Work Phone: Start: 07-07-2025 End: 07-07-2025 ambulatory DOV MEADE DO Facility:[facility] Start: 07-07-2025 End: 07-07-2025 Patient encounter procedure DOV MEADE DO [facility] Start: 07-06-2025 End: 07-06-2025 Patient encounter procedure Rossi LAWS -[facility] Work Phone: Start: 07-06-2025 End: 07-06-[address] Dov Meade DO Work Phone: -[facility] Start: 07-03-2025 End: 07-07-2025 ambulatory DOV MEADE DO Facility:[facility] Start: 07-03-2025 End: 07-07-2025 Outreach Lab DOV MEADE DO [facility] Start: 06-30-2025 End: 06-30-2025 ambulatory DOV MEADE DO [facility] Start: 06-30-2025 End: 06-30-2025 Patient encounter procedure DOV MEADE DO [facility] Start: 04-16-2025 End: 04-19-2025 Evaluation and management of inpatient DR PEG SOUZA MD [facility] Start: 04-15-2025 End: 04-15-2025 Emergency department patient visit CHLOE PIZANO DO [facility] Start: 03-21-2025 End: 03-21-2025 ambulatory DOV MEADE DO [facility] Start: 03-21-2025 End: 03-21-2025 Patient encounter procedure DOV MEADE DO [facility] Start: 02-10-2025 End: 02-14-2025 ambulatory DOV MEADE DO Facility:[facility] Start: 02-10-2025 End: 02-14-2025 Outreach Lab DOV MEADE DO [facility] Start: 01-27-2025 End: 04-04-2025 ambulatory DOV MEADE DO Facility:[facility] Start: 01-27-2025 End: 04-04-2025 Physical therapy management FABIOLA ORDAZ PA-C [facility] Start: 01-09-2025 End: 01-09-2025 ambulatory DOV MEADE DO [facility] Start: 01-03-2025 End: 01-03-2025 Emergency department patient visit Dr. Dov Meade DO Work Phone: -Emergency Department Work Phone: Start: 12-09-2024 End: 12-09-2024 ambulatory DOV MEADE DO Facility[facility] Start: 12-09-2024 End: 12-09-2024 Patient encounter procedure DOV MEADE DO [facility] Start: 10-28-2024 End: 10-28-2024 Admission to same day surgery center Dr. Christo Prasad DPM [facility] Start: 10-28-2024 End: 10-28-2024 ambulatory Dov Meade Facility:[facility] Start: 10-26-2024 End: 10-26-2024 ambulatory DOV MEADE DO [facility] Start: 10-26-2024 End: 10-26-2024 Patient encounter procedure DOV MEADE DO [facility] Start: 05-16-2024 End: 06-22-[address] CARROLL ROSADO DPM Facility:[facility] Start: 05-16-2024 End: 06-22-[address] CARROLL COLEYM [facility] Start: 04-19-2024 End: 04-19-2024 ambulatory DOV MEADE DO [facility] Start: 04-15-2024 End: 04-15-2024 ambulatory DOV MEADE DO [facility] Start: 04-15-2024 End: 04-15-2024 Patient encounter procedure DOV MEADE DO [facility] Start: 04-06-2024 ambulatory UCHE RUBIN Facility: [facility] Start: 04-06-2024 End: 08-19-2024 Physical therapy management UCHE RUBIN DO [facility] Start: 03-25-2024 End: 03-25-[address] CARROLL ROSADO DPM Facility:[facility] Start: 02-24-2024 End: 02-26-2024 ambulatory UCHE RUBIN Facility:[facility] Start: 02-24-2024 End: 02-26-2024 Observation UCHE RUBIN DO [facility] Start: 02-11-2024 End: 02-11-2024 Admission to establishment UCHE RUBIN DO [facility] Start: 02-11-2024 End: 02-11-2024 ambulatory UCHE RUBIN Facility:[facility] Start: 12-01-2023 ambulatory KENRICK CHOI Facility:[facility] Start: 11-05-2023 End: 11-05-2023 ambulatory CHANEL YOUSIF Facility:[facility] Start: 11-05-2023 End: 11-05-2023 Patient encounter procedure CHANEL YOUSIF MD [facility] Start: 09-29-2023 End: 10-03-2023 ambulatory CHANEL YOUSIF Facility[facility] Start: 09-28-2023 End: 11-18-2023 ambulatory BINH MAK PA-C Facility:[facility] Start: 09-28-2023 End: 11-18-2023 Physical therapy management BINH MAK PA-C [facility] Start: 08-10-2023 ambulatory DOV MEADE DO Faci lity:[facility] Start: 02-20-2023 End: 02-20-2023 Patient encounter procedure DOV MEADE DO [facility] Start: 02-20-2023 End: 02-20-2023 Well adult monitoring check done DOV MEADE DO [facility] Start: 09-26-2022 End: 09-26-2022 Patient encounter procedure DOV MEADE DO [facility] Start: 09-26-2022 End: 09-26-2022 Well adult monitoring check done DOV MEADE DO [facility] Start: 06-16-2022 End: 06-17-2022 Evaluation and management of inpatient [facility]-Medical Surgical 3 Start: 06-16-2022 End: 06-17-2022 observation encounter [facility] Work Phone: Start: 06-10-2022 End: 06-10-2022 ambulatory [facility] Perez martinotal Work Phone: Start: 06-10-2022 End: 06-10-2022 Patient encounter procedure [facility]-Laboratory, Specimen Start: 06-10-2022 End: 06-10-2022 ambulatory [facility] salenatal Work Phone: Start: 06-10-2022 End: 06-10-2022 Patient encounter procedure [facility]-Radiology, [facility] Start: 03-15-2022 End: 03-15-2022 Emergency department patient visit [facility]-Emergency Department Procedures Date Procedure Procedure Detail Performing Clinician Start: 07-13-2025 Blood pressure withi n normal parameters - no follow-up required Lizy Perdomo PRESS OPERATOR AUTOMATIC-CREATIVE WRITING TEACHER Work Phone: Start: 07-13-2025 BMI documented as ab ove normal parameters - follow-up documented Lizy Perdomo PRESS OPERATOR AUTOMATIC-CREATIVE WRITING TEACHER Work Phone: Start: 07-13-2025 Current tobacco non- user cad cap copd pv dm Lizy Perdomo PRESS OPERATOR AUTOMATIC-CREATIVE WRITING TEACHER Work Phone: Start: 07-13-2025 Documentation of cur rent medications Lizy Perdomo PRESS OPERATOR AUTOMATIC-CREATIVE WRITING TEACHER Work Phone: Start: 07-13-2025 Pain assessment docu mented as positive - no follow-up/reason not given Lizy Perdomo PRESS OPERATOR AUTOMATIC-CREATIVE WRITING TEACHER Work Phone: Start: 01-12-2025 Rupture of rotator c uff of shoulder DOV MEADE DO Start: 01-03-2025 Computed tomography of abdomen and pelvis with contrast Dr. Dov Meade DO Work Phone: Start: 01-03-2025 CT of abdomen and pe lvis without contrast Dr. Dov Meade DO Work Phone: Start: 12-21-2024 Cervical arthrodesis Cervical fusion Lizy Perdomo PRESS OPERATOR AUTOMATIC-CREATIVE WRITING TEACHER Work Phone: Start: 10-28-2024 Plantar dissection RETA Ivon DESHAUN DO Start: 06-16-2022 Fluoroscopic guidance Start: 06-16-2022 Cystoscopy and retro grade pyelography Start: 06-10-2022 Diagnostic radiograp hy of abdomen Start: 03-15-2022 CT of abdomen and pe lvis without contrast Back structure, excl uding neck (body structure) DOV MEADE DO Comment on above: C6-7 bulging disc section UCHE MOY SANDRITA DO Comment on above: x2 Dilation and curetta ge of uterus DOV MEADE DO Discectomy of spine UCHE RUBIN DO Elbow region structu re (body structure) UCHEANI RUBIN DO Comment on above: bilateral Excision of cyst of ovary MENA MEADE DO H/O: tubal ligation DOV ORELLANA DO Kidney structure (subha dy structure) UCHE RUBNI DO Comment on above: stones Surgery (qualifier value) MENA MEADE DO Transurethral cystoscopy MEGHAN RUBIN DO Ureteric structure ( body structure) UCHE MOYTS DO Comment on above: right side bipas Urine culture Plan of Treatment Date Care Activity Detail Author Start: 07-13-2025 End: 07-13-2025 [employer] Work Phone: Start: 07-13-2025 Njx dx/ther agt pvrt facet jt crv/thrc 2nd level [facility] [place] Work Phone: Start: 07-13-2025 oxyCODONE [Presence] in Urine [facility] Work Phone: Start: 07-13-2025 Patient encounter procedure [facility] Work Phone: Start: 01-03-2025 [facility] Start: 10-28-2024 Anesthesia arthroscopic procedure ankle & foot ANESTH ANKLE/FT ARTHROSCOPY [facility] Start: 10-28-2024 Endoscopic plantar fasciotomy SCOPE PLANTAR FASCIOTOMY [facility] Start: 10-28-2024 Catheterization of vein [facility] Start: 10-28-2024 Neurovascular assessment [facility] Start: 10-28-2024 Patient discharge [facility] Start: 10-28-2024 Procedure discontinued [facility] Start: 10-28-2024 Vital signs measurements [facility] Start: 10-28-2024 [facility] Start: 06-17-2022 Patient discharge [facility] Work Phone: Start: 06-16-2022 [facility] Work Phone: Start: 06-16-2022 Cystoscopy and retrograde pyelography Cysto,Ureteroscopy,Ret ro,Laser,Stent (Left) [facility] Work Phone: Start: 06-16-2022 Fluoroscopic guidance O.R. Fluoro for C-Arm [facility] Work Phone: Start: 06-16-2022 Following clinical pathway protocol [facility] Work Phone: Start: 06-16-2022 Admission procedure [facility] Work Phone: Patient Education [facility] Work Phone: Patient referral [facility] Work Phone: Immunizations Immunization Date Immunization Notes Care Provider Jax navas 10-04-2021 SARS-CoV-2 mRNA (toalbertnameran) vaccine DOV MEADE DO [facility] 09-05-2021 SARS-CoV-2 mRNA (tozinameran) vaccine DOV MEADE DO [facility] 07-19-2013 Influenza virus vaccine [facility] 06-03-2010 hepatitis A vaccine, adult dosage DOV MEADE DO [facility] 06-03-2010 tetanus toxoid, redu adela diphtheria toxoid, and acellular pertussis vaccine, adsorbed DOV MEADE DO [facility] Payers Date Payer Category Payer Self-pay [id number] 2023 Private Health Insurance [id number] 2022 Medicaid [id number] 2022 Unknown [id number] 2022 Unknown [id number] 1972 Unknown [id number] 2.16.840.1.168699.3.579.2.6 1972 Unknown [id number] 2.16.840.1.890585.3.579.2.6 1972 Unknown [id number] 2.16.840.1.690066.3.579.2.6 1972 Unknown [id number] 2.16.840.1.272518.3.579.2.6 1972 Unknown [id number] 2.16.840.1.074922.3.579.2.6 1972 Unknown [id number] 2.16.840.1.821424.3.579.2.6 1972 Unknown [id number] 2.16.840.1.558051.3.579.2.6 1972 Unknown [id number] 2.16.840.1.171999.3.579.2.6 1972 Unknown [id number] 2.16.840.1.309966.3.579.2.6 1972 Unknown [id number] 2.16.840.1.224127.3.579.2.6 1972 Unknown [id number] 2.16.840.1.091345.3.579.2.6 1972 Unknown [id number] 2.16.840.1.841268.3.579.2.6 1972 Unknown [id number] 2.16.840.1.906474.3.579.2.6 1972 Unknown [id number] 2.16.840.1.764054.3.579.2.6 1972 Unknown [id number] 2.16.840.1.482911.3.579.2.6 1972 Unknown [id number] 2.16.840.1.061271.3.579.2.6 1972 Unknown [id number] 2.16.840.1.833477.3.579.2.6 1972 Unknown [id number] 2.16.840.1.001560.3.579.2.6 1972 Unknown [id number] 2.16.840.1.273299.3.579.2.6 1972 Unknown [id number] 2.16.840.1.180002.3.579.2.6 1972 Unknown [id number] 2.16.840.1.044284.3.579.2.6 1972 Unknown [id number] 2.16.840.1.761573.3.579.2.6 1972 Unknown [id number] 2.16.840.1.274929.3.579.2.6 27 1972 Unknown [id number] 2.16.840.1.442390.3.579.2.6 27 1972 Unknown [id number] 2.16.840.1.779994.3.579.2.6 27 1972 Unknown [id number] 2.16.840.1.271694.3.579.2.6 27 1972 Unknown [id number] 2.16.840.1.197268.3.579.2.6 27 Private Health Insurance [id number] Private Health Insurance [facility] [id number] Unknown [id number] Unknown [id number] 2.16.840.1.562922.3.579.2.4 62 Unknown [id number] 2.16.840.1.725597.3.579.2.4 62 Unknown [id number] 2.16.840.1.605434.3.579.2.4 62 Unknown [id number] 2.16.840.1.043111.3.579.2.4 62 Social History Date Type Detail Facility [facility] Work Phone: Start: 03-15-2022 End: 06-16-2022 Tobacco smoking status NDIS Unknown if ever smoked [facility] Work Phone: Start: 03-14-2021 None [facility] Start: 03-14-2021 Homeless [facility] Start: 03-14-2021 Non-smoker [facility] Start: 1970 Sex Assigned At Female A [facility] Start: 06-02-2019 End: 07-06-2025 Tobacco smoking status Never smoked tobacco (finding) [facility] Comment on above: No Tobacco/Smoke Exp osure Sexual [facility] Start: 04-13-2019 End: 01-03-2025 Sex Female (finding) [facility] Start: 07-13-2025 Sex [facility] NEGATED: Highlighted row Not [facility] Medical Equipment Procedure Code Equipment Code Equipment Origin al Text Equipment Identifier Dates Cystoscopy, with retrograde pyelogram, ureteroscopy, laser procedure, and stent inser STENT,URETERAL PIGTAIL [id number] FDA Start: 06-16-2022 Cystoscopy, with retrograde pyelogram, ureteroscopy, laser procedure, and stent inser STENT,URETERAL PIGTAIL [id number] FDA Start: 06-16-2022 STENT,URETERAL PIGTAIL [id number] FDA Start: 11-01-2021 STENT,URETERAL PIGTAIL [id number] FDA Start: 11-01-2021 STENT,URETERAL PIGTAIL [id number] FDA Start: 11-01-2021 STENT,URETERAL PIGTAIL [id number] FDA Start: 11-01-2021 STENT,URETERAL PIGTAIL [id number] FDA Start: 11-01-2021 STENT,URETERAL PIGTAIL [id number] FDA Start: 11-01-2021 STENT,URETERAL PIGTAIL [id number] FDA Start: 11-01-2021 Goals Date Patient Goal Desired Activity /State Functional Status Date Assessment Result Facility 07-13-2025 Functional Status with [facility] Work Phone: 07-13-2025 dependent [facility] Work Phone: 02-26-2024 Functional Status bilateral knee high nely lied/on [facility] 02-26-2024 Functional Status Mod I [facility] 02[facility]26-[address] [facility] [facility]2024 Functional Status 7pm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, Housework, Laundry, Meal preparation, Personal ADL, Shopping, Social participation, Work [facility] 02-25-2024 Functional Status [facility] 02-24-2024 Functional Status [facility] 02-24-2024 Functional Status Repositions self [facility] 02-24-2024 Functional Status ice on [facility] 02-24-2024 Functional Status [facility] 02-11-2024 Functional Status Sensory Deficits None [facility] 09-28-2023 Functional Status Objective: Neck AROM flexion [mild restriction], extension [severe restriction], rotation to left [moderate restriction], rotation to right [mild restriction] SB to left [mild restriction], SB to right [mild restriction] Posture: Increase in thoracic kyphosis, forward head posture. Pt with dorsocervical fat pad. Palpation: Pt with tenderness in anterior and middle deltoid and supraspinatus region. Slight tenderness of upper trapezius and infraspinatus region. AROM right shoulder flexion [140 deg], abduction [130 deg], ER [moderate restriction], IR[severe restriction] pain with all ROM, worst with abduction and ER PROM right shoulder flexion [143 deg], abduction [136 deg] AROM left shoulder flexion [145 deg], abduction [140 deg], ER [WFL], IR [WFL] PROM left shoulder flexion [WFL], abduction [WFL] Strength right shoulder flexion [3-/5], abduction [3-/5], ER [4-/5], IR [3+/5], elbow flexion [4/5], extension [4/5], button station worker strength [3+/5] Strength left shoulder flexion [5/5], abduction [5/5], ER [5/5], IR [5/5], elbow flexion [5/5], extension [5/5], button station worker strength [5/5] Special tests- ULTT [+ on R], [place] [+], Painful arc [+], Drop arm [+], Lift off [-], Infraspinatus test [+], Biceps load test [-], Cross body adduction [+], Distraction test [-], Spurling's [-] FOTO Score: 46/100 [facility] 06-17-2022 Functional status Activity Abili ty Standby Assist [facility] Work Phone: Mental Status Date Assessment Result Facility 10-28-2024 Cognitive function Level Of Cons ciousness Follows Commands;Drowsy [facility] Work Phone: 10-28-2024 Cognitive function Voice/Name [facility] Work Phone: 02-26-2024 Mental Status Oriented x 4 [facility] 02-25-2024 Mental Status [facility] 02-24-2024 Mental Status [facility] 02-24-2024 Mental Status [facility] 06-17-2022 Cognitive function Level Of Cons ciousness [facility]: 06-16-2022 Cognitive function Voice/Name [facility] Work Phone: 06-16-2022 Cognitive function Level Of Cons ciousness Awake;Alert;Appropriate;Follow s Commands;Responds to vocal stimuli [facility] Work Phone: Clinical Notes 10-13-2021 to 07-30-2025 Note Date & Type Note Facility 07-30-2025 Note . MICRO - Microbiology PROCEDURE: Urine Culture [*1] SOURCE: Urine, Clean Catch BODY SITE: COLLECTED DATE/TIME: 07/27/2025 13:43 EDT RECEIVED DATE/TIME: 07/28/2025 14:59 EDT START DATE/TIME: 07/28/2025 14:59 EDT FREE TEXT SOURCE: FINAL REPORTS Final Report [] Verified Date/Time/Personnel: 07/30/2025 07:42 EDT 10,000 - 50,000 cfu/ml Mixed growth consistent with normal urogenital abi. PRELIMINARY REPORTS Preliminary Report [] Verified Date/Time/Personnel: 07/29/2025 09:12 EDT No growth to date Preliminary Report [] Verified Date/Time/Personnel: 07/28/2025 15:59 EDT Specimen received in lab. Performing Locations *1: This test was performed at: [facility], [address] [place] [address], [phone] , [facility] 07-07-2025 Note Exam Date Time Procedure Performing Provider Status 07/07/25 11:08 AM XR Spine Lumbar Flex /Ext w/Obliques HOLLIE RUTLEDGE MD; Auth (Verified) [id number] ORIGINAL HISTORY: Pain COMPARISON: No FINDINGS: There are 5 lumbar type vertebral bodies counting from the last visible rib. Alignment is within normal limits. There is no significant subluxation on flexion or extension views. The individual vertebral bodies are intact. There is mild disc space narrowing, mainly at L4-L5. There are mild lower lumbar facet degenerative changes. IMPRESSION: Mild lower lumbar degenerative changes. Interpreted by: Hollie Rutledge MD Preliminary Report By: Hollie Rutledge MD Electronically signed By Hollie Rutledge MD Dictated Date: 07/07/2025 11:19:51 AM Prelim Date: 07/07/2025 11:21:24 AM Sign Date: 07/07/2025 11:21:24 AM Ordering Provider: [facility]09-19-2025 Note* Exam Date Time Procedure Performing Provider Status 07/07/25 11:08 AM XR Hip Right w/Pelvis 4 Views HOLLIE RUTLEDGE MD; Auth (Verified) [id number] ORIGINAL HISTORY: Pain COMPARISON: CT 17 April 2025 FINDINGS: No acute fracture is seen. Alignment of the hip is within normal limits. The joint space is maintained. The soft tissues are unremarkable. IMPRESSION: Unremarkable right hip. Interpreted by: Hollie Rutledge MD Preliminary Report By: Hollie Rutledge MD Electronically signed By Hollie Rutledge MD Dictated Date: 07/07/2025 11:18:48 AM Prelim Date: 07/07/2025 11:19:40 AM Sign Date: 07/07/2025 11:19:40 AM Ordering Provider: [facility]09-19-2025 Note* Exam Date Time Procedure Performing Provider Status 07/07/25 11:08 AM XR Sacroiliac Joints Minimum 3 Views HOLLIE RUTLEDGE MD; Auth (Verified) [id number] ORIGINAL HISTORY: Pain COMPARISON: No FINDINGS: There are no acute fractures or dislocations. Alignment of the sacroiliac joints is within normal limits. Joint spaces are maintained. IMPRESSION: Unremarkable examination. Interpreted by: Hollie Rutledge MD Preliminary Report By: Hollie Rutledge MD Electronically signed By Hollie Rutledge MD Dictated Date: 07/07/2025 11:17:50 AM Prelim Date: 07/07/2025 11:18:32 AM Sign Date: 07/07/2025 11:18:32 AM Ordering Provider: [facility]09-18-2025 [facility] [address] [place] [address] OFFICE VISIT Date of Service: 07/06/25 MR#: [id number] Acct: [id number] Name: ASHLEY GOODE Rep #: [id number] : 1970 Provider: VETO Abdi Age/Sex: 54/F Location: [facility] Status: Signed Intake Vital Signs 01/03/25 16:14 07/06/25 10:16 Height 5 ft 4 in 5 ft 4 in Weight: 196 lb BMI 33.6 BP 125/78 H Pulse 97 Temp 97.9 F Temp Source Temporal Pulse Oximetry (%) 94 Oxygen Delivery Method room air Intake Visit Reasons: Pre-Colonoscopy Screening/Fam Hx Colon CA Chief Complaint: stomach problems Vice President Required: No Accompanied by: Self Is patient in pain?: No Allergies meperidine HCl (From Demerol) Allergy (Verified 07/06/25 10:17) Other morphine Allergy (Verified 07/06/25 10:17) Rash Medications ?Medication ?Instructions ?Recorded ?Confirmed ?Type trazodone 100 mg tablet 200 mg PO QHS 10/12/2107/06 History nitrofurantoin macrocrystal 100 mg 100 mg PO QHS Check with primary 06/16/22 07/06/25 History capsule doctor estradiol 1 mg tablet 1 mg PO DAILY 10/25/2407/06 History medroxyprogesterone 5 mg tablet 5 mg PO DAILY 10/25/24 07/06/25 History omeprazole 20 mg capsule,delayed 20 mg PO DAILY 07/06/25 History release ondansetron 4 mg disintegrating 4 mg PO Q8H PRN nausea and 01/03/25 07/06/25 Rx tablet vomiting #20 tabs sodium sul 1.479 gram-potas ch See Rx Instructions PO .COMPLEX 07/06/25 07/06/25 Rx 0.188 gram-magnes sul 0.225 gram #28 tabs tablet (Sutab) [facility] Medical History Kidney disease UTI (urinary tract infection) High cholesterol History of IBS GERD (gastroesophageal reflux disease) Depression Fatigue IBS (irritable bowel syndrome) Kidney stones Insomnia Anxiety Ovarian cyst Tubal Personal history of kidney stones Hx of renal impairment Surgical History History of spinal fusion (~02/2024) History of elbow surgery History of lithotripsy H/O ovarian cystectomy H/O dilation and curettage Hx of tubal ligation History of Family History Mother Colon cancer Father Diabetes Other Anxiety Arthritis CVA (cerebral vascular accident) Depression Kidney disease Social History housing: [facility] number of children: 2 current occupational status: employed current occupation: [employer] Smoking Status: Never smoker alcohol intake: current details: rarely substance use type: does not use frequency: 3-4 times per week HPI HPI Chief Complaint: stomach problems Details: 54-year-old female presents for initial consultation with PMH significant for IBS-C, prediabetes, GERD on PPI, presents for consultation post admission for complaints of right sided abdominal pain. She was seen by gastroenterology during her March admission at which point she had been experiencing severe onset of acute abdominal pain with no known triggers. She described this pain as intense, sharp, and stabbing affecting the RUQ and RLQ. She reports a history of moderate to severe constipation going up to 7 to 10 days without a bowel movement if not longer. She had reported failing multiple medical therapies butcould only recall MiraLAX and Linzess with certainty. She also had reported previous bidirectional endoscopies were unremarkable. She was also seen by surgery during admission. CT scan of her abdomen and pelvis was completed that showed no acute findings with bilateral nonobstructive kidney stones. She was found to have a stable hepatic lobe cyst with unremarkable gallbladder, spleen, pancreas, and adrenal glands. She then had an ultrasound of her abdomen that showed no gallstones with a common bile duct slightly dilated at 8 mm, no findings of acute cholecystitis. She was found to have a normal white count of 5.9 with a stable hemoglobin. Total bilirubin and LFTs were all within normal limits. No surgical interventions were planned. CT abdomen and pelvis with oral contrast only completed 04/17/2025 suggested mildwall thickening of the right ureter; otherwise unremarkable. Abdominal ultrasound completed April 17, 2025 revealed a mildly dilated CBD of 8 mm and gallbladder wall in the upper limits of normal. No gallstones. CBC: 04/19/2025 WNL BMP 04/19/2025 unremarkable - Mom passed of colon CA, diagnosed at 48y/o - reports her last colonoscopy was 5 years ago - c/o abdominal pain and bloating constant, worse after meals - reports she can go >3 weeks without a BM - reports she only has a BM when using a fleets enema - reports failing Linzess, Miralax, Amitiza - gleason snot recall ever trialing Trulance or Ibsrela - Dulcolax stool softener every evening - constipation is getting worse - she is using fleets enemas once a week, every 3-4 days - stools are hard - reports her abdominal pain is worse after a BM with occasional nausea - denies any emesis - reports her last colonoscopy was in [place] - denies any h/o colon polyps - denies any weight loss - denies any bleeding - Sitz Marker 15 years ago showed slow transit - record review as noted above including recent admission The patient is a 54-year-old female presenting with chronic constipation and abdominal bloating. The patient's symptoms initiated approximately 21 years ago,coinciding with the of her daughter.She reports a history of constipationcharacterized by infrequent bowel movements, sometimes extending to three and a half weeks without relief unless facilitated by a fleet enema, which she resortstousing approximately once a week. The patient has trialed various modifications to her diet, including the elimination of gluten and dairy, with no symptom relief. Dietary fiber intake ishigh, consisting of fruits, vegetables, and fiber cereal. She maintains adequatehydration by consuming mostly water. Despite these efforts, the abd ominal bloating persists, described as causing significant discomfort and pain without needing foodintake to trigger symptoms. Symptomatically, the patient experiences severe bloating and abdominal discomfort services in the absence of dietary triggers. Medical management attempts have included various pharmacotherapy trials such asLinzess, MiraLAXUS,and Amitiza, none of which have successfully ameliorated theconstipation. She has also utilized txek-hvt-wwukdsj options, such as Dulcolax, without success. Previous interventions have emphasized frannie roenterological exploration, yet symptom management has proven elusive. The patient undergoes routine care for additional medical issues, including recurring kidney stonesrequiring urological interventions. Family medical history is significant for the of her mother from colon cancer at the age of 54. The patient herself has undergone multiple colonoscopies, thelast being approximately five years prior, with no history of colon polyps. ROS Const Constitutional: Positive for headache(s) and weakness; No fatigue, fever(s) or weight change ENT ENT: Positive for headache(s); No difficulty swallowing Cardio Cardiology: Positive for leg pain with exertion Gastro GI: Positive for abdominal pain, bloating, constipation and heartburn; No belching, change in stool character, coffee ground emesis, cramping, diarrhea, difficulty swallowing, feeling full early, excessive flatus, incontinent of stools, Vomiting blood/hematemesis, Bloodin stool, loose stools,Black,tarry stools, nausea/dyspepsia, pain with swallowing, vomiting or other Musc Musculoskeletal: Positive for abnormal gait, joint pain, back pain, muscle cramps, muscle weakness,numbness, tingling, sciatica, restless legs, leg pain at night and leg pain with exertion Skin Skin: No yellowing of the eye or itchy eyes Neuro Neurology: Positive for abnormal gait, weakness, headache(s), numbness, tinglingand restless legs Psych Psychiatric: No anxiety and No depression Endo Endocrine: No fatigue or weight change Aller/Imm Allergy/Immunologic: No itchy eyes Daniel/Lymp Hematologic/Lymphatic: No easy bleeding or easy bruising ROS Narrative - Gastrointestinal: Reports chronic constipation, abdominal bloating, and discomfort. Denies nausea, vomiting, and hematochezia. - Constitutional: Reports weight gain. - Genitourinary: Denies current kidney issues but has a history of kidney stones. - Respiratory: Denies any current lung disease. - Hematologic: Denies fevers. Exam Const General: cooperative, healthy appearing, no acute distress and well developed Nutritional Appearance: well nourished and overweight Orientation: alert and oriented x3 HENMT Head: normocephalic Ears: hearing grossly normal bilaterally Mouth: moist mucous membranes Teeth and gingiva: dentition normal Eyes Conjunctivae: conjunctivae normal Sclera: sclerae normal Neck Neck: normal visual inspection, full ROM and trachea midline Resp Effort & Inspection: normal respiratory effort, able to speak in complete sentences and symmetric chest movement Neuro General: patient alert and patient oriented x3 Cranial Nerves: other (CN's grossly intact, non-focal exam) Cognition: normal cognition Speech: speech normal Gait: normal gait Psych Appearance: grossly normal and well kempt Affect: normal affect Attitude: cooperative Thought Process: normal Assessment and Plan Assessment and Plan (1) Chronic constipation: Status: Chronic (2) Bloating: Status: Acute (3) Abdominal pain: Status: Acute (4) Family history of colon cancer: Status: Acute Comment: Mom at 48y/o Medications: New sod sulf-pot chloride-mag sulf 1.479-0.188- 0.225 gram (Sutab) Take orally take as directed for split dose bowel prep. Do not follow instructions on box. 28 tabs 0RF Plan 54-year-old female with a history of chronic constipation, presenting with continued symptoms of constipation and abdominal bloating. The patient reports significant interference with her daily routine due to the persistent symptoms. Despite pharmacologic and lifestyle interventions, the effectiveness remains suboptimal. Given her family history of colon cancer and symptom progression, revisitingprior diagnostics such as colonoscopy and Sitz marker study is prudent to evaluate for underlying gastrointestinal motility issues. Differential diagnosis considerations include idiopathic constipation, colonic inertia, or an underlying motility disorder. Patient Instructions: Colonoscopy 2 day SuTab (1 sample provided) Trulance once daily, samples provided - Do not start Trulance until after the Sitz marker study. - Maintain your current hydration and dietary intake. - Report any worsening symptoms or new symptoms such as blood in stool, significant abdominal pain,or changes in bowel habits. 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 MICRO - Microbiology PROCEDURE: Urine Culture [*1] SOURCE: Urine, Clean Catch BODY SITE: COLLECTED DATE/TIME: 07/03/2025 16:36 EDT RECEIVED DATE/TIME: 07/04/2025 15:22 EDT START DATE/TIME: 07/04/2025 15:22 EDT FREE TEXT SOURCE: FINAL REPORTS Final Report [] Verified Date/Time/Personnel: 07/06/2025 07:41 EDT No growth at 48 hours. PRELIMINARY REPORTS Preliminary Report [] Verified Date/Time/Personnel: 07/05/2025 09:59 EDT No growth to date Preliminary Report [] Verified Date/Time/Personnel: 07/04/2025 15:59 EDT Specimen received in lab. Performing Locations *1: This test was performed at: [facility], [address] [place] [address], [phone] , [facility]09-12-2025 Note* Exam Date Time Procedure Performing Provider Status 06/30/25 10:05 AM US Breast Left Limited TINY REYES MD; Auth (Verified) [id number] ORIGINAL FROM: [facility] [address], [place] [address] PROCEDURE FOR: ASHLEY JANES [address] [place] [address] Home: PID#: [id number] Exam#: [id number] : 1970 Age: 54 TO: DOV MEADE [address] [place] [address] Fax: NO FAX EXAMINATION: ULTRASOUND OF THE LEFT BREAST 06/30/2025 9:27 am TECHNIQUE: Color flow and rob scale targeted ultrasound of the left breast 12 o'clock were performed. Permanently stored images were reviewed. COMPARISON: June 30, 2025, October 26, 2024, April 19, 2024, April 15, 2024, February 10, 2018, January 22, 2015 HISTORY: ORDERING SYSTEM PROVIDED HISTORY: Reason for Exam: abnormal US of the breast FINDINGS: In the left breast 12 o'clock 4 cm from the nipple, there is a cyst measuring 1.7 cm, decreased in size, likely correlating with the area of interest on mammography. IMPRESSION: Decrease in size of the cyst in the left breast at 12 o'clock 4 cm from the nipple, benign. The patient may return to annual mammographic screening. BIRADS: BI-RADS: 2: Benign RECALL: return to screening RECALL TYPE: mammo LETTER SENT: Normal BI-RADS 1 and 2 Interpreted by: Tiny Reyes Preliminary Report By: Tiny Reyes Electronically signed By Tiny Reyes Dictated Date: 06/30/2025 10:13:40 AM Prelim Date: 06/30/2025 10:14:52 AM Sign Date: 06/30/2025 10:14:52 AM Ordering Provider: DOV MEADE Huc: SHARON AMARAL RT(Josephine)(M) RDMS letter sent: Normal BI-RADS 1 and 2 Ultrasound BI-RADS: 2 Benign [facility]09-12-2025 Note* Exam Date Time Procedure Performing Provider Status 06/30/25 9:42 AM MA Mammo Diagnostic Bilateral w/TNIY Morton MD; Auth (Verified) [id number] ORIGINAL FROM: [address] [address] PROCEDURE FOR: ASHLEY GOODE [address] [place] [address] Home: PID#: [id number] Exam#: [id number] : 1970 Age: 54 TO: DOV MEADE [address] [place] [address] Fax: NO FAX EXAMINATION: DIAGNOSTIC BILATERAL MAMMOGRAM WITH TOMOSYNTHESIS, 06/30/2025 9:27 am TECHNIQUE: Tomosynthesis was performed as part of the diagnostic bilateral mammogram. 2D standard and 3D tomosynthesis combination imaging performed. Current study was also evaluated with a Computer Aided Detection (CAD) system. COMPARISON: October 2024, March 20, 2024, April 15, 2024, February 10, 2018, January 22, 2015 HISTORY: ORDERING SYSTEM PROVIDED HISTORY: Reason for Exam: abnormal US of the breast FINDINGS: BREAST DENSITY: The breasts are heterogeneously dense, which may obscure small masses. In the left breast at 12 o'clock anterior depth, there is a 1.8 cm mass, stable allowing for technical differences. Benign densities are seen in both breasts. No other significant masses, calcifications, or other findings. IMPRESSION: Mass in the left breast at 12 o'clock anterior depth. Left breast ultrasound was performed and will be reported separately. BIRADS: BI-RADS: 0: Incomplete: Need Additional Imaging Evaluation RECALL: immediate RECALL TYPE: Left US LETTER SENT: Abnormal-Needs additional work up BI-RADS 0 Interpreted by: Tiny Reyes Preliminary Report By: Tiny Reyes Electronically signed By Tiny Reyes Dictated Date: 06/30/2025 9:59:13 AM Prelim Date: 06/30/2025 10:13:28 AM Sign Date: 06/30/2025 10:13:28 AM Ordering Provider: DOV MEADE Huc: RADHA PACHECO RT(R)(M)(CT) letter sent: Abnormal-Needs additional work up BI-RADS 0 Mammogram BI-RADS: 0 Needs additional imaging evaluation [facility]07-02-2025 Discharge summary Date of Service 04/19/2025 Discharge Diagnosis 1 - Abdominal pain ([id number] - PNED) 2 - Shingles (B02.9 - ICD-10-CM) 3 - GERD (gastroesophageal reflux disease) (K21.9 - ICD-10-CM) 4 - Degenerative disc disease, cervical (M50.30 - ICD-10-CM) 5 - IBS (irritable bowel syndrome) (K58.9 - ICD-10-CM) 6 - Prediabetes (R73.03 - ICD-10-CM) 7 - Nephrolithiasis (N20.0 - ICD-10-CM) Hospital Course Patient is 54 years old female with past medical history significant for prediabetes, constipation predominant IBS, history of nephrolithiasis requiring urological procedures and recurrent UTI on suppressive antibiotics nitrofurantoin, chronic back and shoulder pain, osteoarthritis, GERD on PPI who presented with chief complaint of severe right-sided abdominal pain going on for last few days thatis sharp in nature and comes and goes. She was seen at [facility] [place] 1 day prior and for scan did not show any acute findings. Pain mainly present on the right side of the abdomen. She also had 2 episodes of vomiting. On arrival, she was afebrile and hemodynamically stable. Lab work with no significant abnormality including CBC, BMP. UA with no evidence of UTI. LFT WNL. Lipase 32. Lactic acid 1.8. D-dimer less than 200. Troponin unremarkable. EKG showing sinus rhythm. Repeat CT abdomen/pelvis with contrast without any acute findings. Ultrasound also showed no acute surgical findings. Nonobs tructing right renal calculus. Patient was started on analgesic, IV fluid resuscitation. She was evaluated by GI, general surgery and urology due to initially unexplained etiology for pain and urology did not feel that her symptoms were related to nephrolithiasis. Ct findings of thickening of the right ureter likely consistent with known right ureteral reimplant and this does not appear to be acute per Urology. She also had no symptoms of UTI. Patient developed rash on right side of abdominal and back area consistent with shingles that explains her right-sided pain hence was started on valacyclovir as well as low-dose gabapentin to help with her pain. Her pain is gradually improving but does have intermittent residual right sided pain around rash area. She otherwise remained afebrile and hemodynamically stable and tolerating diet. Patient discharged on 5 more days of Valacyclovir to complete course, short term gabapentin to help with pain. She is also Duloxetine. Patient encouraged to closely follow up with her Primary care physician for symptom resolution as well as Urology and GI after discharge. Plan discussed with patient in detail and verbalized understanding. Allergies Demerol HCl Rash morphine Rash Consults Consult to Physician - Ordered -- 04/17/25 10:55:00 EDT, KENRICK WOODS MD, Routine, Intractable right upper quadrant and right lower quadrant pain. For evaluation. Consult to Physician - Ordered -- 04/17/25 10:55:00 EDT, JOLYNN GAONA MD, Routine, Intractable right upper quadrant and right lower quadrant pain, for evaluation Consult to Physician - Ordered -- 04/17/25 13:15:00 EDT, UCHE BRO MD, Routine, Patient with uncontrolled right-sided abdominal pain. Renal stones on CT abdomen.Please evaluate. Imaging Results and Diagnostics CT Abdomen/Pelvis w/Oral Contrast Only Result Date: April 17, 2025 Verified By: LAWSON DESAI MD CLINICAL STATEMENT: IMPRESSION: Suggested mild wall thickening of the right ureter; correlate with urinalysisfor possible ascending urinary tract infection. Otherwise no significantchange from prior exam. US Abdomen Limited Result Date: April 17, 2025 Verified By: MARYJANE OLIVEIRA, MARQUIS Nam CLINICAL STATEMENT: IMPRESSION: 1. No gallstones. Gallbladder wall is at the upper limits of normal.2. Common bile ductis mildly dilated measuring 8 mm.3. Nonobstructing right renal calculus. Physical Exam Vitals and Measurements T: 36.6 C (Oral) TMIN: 36.4 C (Oral) TMAX: 36.6 C (Oral) HR: 77 RR: 18 BP: 122/70 SpO2: 97% Weight Dosing Weight: 86 kg (04/17/25) Dosing Weight: 86 kg (04/16/25) General: not in acute distress Neck: Supple, No JVD HEENT: Normocephalic, atraumatic, Cardiac: Regular rate and rhythm, S1 and S2 present, Lungs: Clear to auscultation bilaterally, no wheezes, rhonchi, or rales appreciated Abdomen: Bowel sounds audible, abdomen is soft, rash on right-sided mid back and abdomen, no drainage, tender to touch Musculoskeletal: Preserved ROM in all 4 extremities Extremities: No clubbing or cyanosis, pitting edema Skin: Warm, well perfused, no bruises Neurological: Alert and orientated x3, No gross focal neurological deficits Code Status No qualifying data available. Admission Date 04/16/2025 Discharge Date 04/19/2025 Patient Instructions - Please take medications as prescribed and follow-up with your primary care physician nancy for symptom resolution and management. Short prescription of gabapentin is being provided for pains related to shingles. - Keep yourself hydrated. Take Miralax and stool softener on daily basis. Try to avoid opiates and discussed with your Primary care physician to adjust your medications. -Follow-up with gastroenterology as well as urology. -If your symptoms worsen, call your primary physician or go to nearest ER. Medications New Prescription valACYclovir (valACYclovir 500 mg oral tablet)2 tab(s) by mouth every 8 hours for 5 Days. Refills: 0. Changed dicyclomine (dicyclomine 10 mg oral capsule)1 cap by mouth four (4) times a day for 30 Days. 28 EA,0 Refill(s), TAKE 1 CAPSULE BY MOUTH 4 TIMES A DAY FOR 7. Refills: 0. gabapentin (Neurontin 100 mg oral capsule)1 cap by mouth three (3) times a day for 14 Days. Refills: 0. herbal/nutritional product (Probiotic)1 capsule by mouth every day. medroxyPROGESTERone (medroxyPROGESTERone 5 mg oral tablet)1 tab(s) by mouth every day. Refills: 1. omeprazole (omeprazole 20 mg oral delayed release capsule)2 cap by mouth once a day. Refills: 0. Unchanged DULoxetine (DULoxetine 30 mg oral delayed release capsule)1 cap by mouth once a day. Refills: 1. estradiol (estradiol 1 mg oral tablet)2 tab(s) by mouth once a day. Refills: 3. metFORMIN (MetFORMIN (Eqv-Glucophage XR) 500 mg oral tablet, EXTENDED RELEASE)1 tab(s) by mouth two(2) times a day. Non-osmotic formulation please. Refills: 1. naltrexone (naltrexone 50 mg oral tablet)0.5 Tablets Oral Daily NOT TO TAKE SAME DAY NORCO. Refills: 0. nitrofurantoin (nitrofurantoin macrocrystals 100 mg oral capsule)TAKE 1 CAPSULE BY MOUTH EVERY DAY AT BEDTIME WITH FOOD. ondansetron (ondansetron 4 mg oral tablet, disintegrating)1 tab(s) by mouth every 6 hours as neededNausea/Vomiting. Refills: 0. scopolamine (scopolamine 1 mg/72 hr transdermal film, extended release)1 patch(es) Topical every 72hours as needed as needed for motion sickness. Refills: 0. traZODone (traZODone 100 mg oral tablet)2 tab(s) by mouth daily at bedtime. Refills: 0. venlafaxine (venlafaxine 37.5 mg oral capsule, extended release)1 cap by mouth once a day. Decreasefrom 75mg to 37.5mg for 2-4 weeks before cessation. May start duloxetine 2 weeks before cessation. Refills: 0. Discontinued buPROPion (buPROPion 75 mg oral tablet)1 tab(s) by mouth every day. Refills: 0. predniSONE (prednisone 10mg tab (TAPER))Taper 15-93-20-10-5 mg by mouth every day for 14 Days. Take6 tabs daily x 3days, then 4 tabs daily x 3days, then 2 tabs daily x 3days,then 1 tab daily x 3days,then 1/2 tab daily x 2 days. Refills: 0. testosterone (Testosterone (Eqv-AndroGel Packets) 20.25 mg/packet (1.62%) transdermal gel)1 Packet(s) Transdermal once a day (in the morning). apply to skin. Refills: 1. Follow Up Follow Up with MD IZZY JONES MD When:In 3 weeks Where:[address] [facility] [address] Gastroenterology[facility] [address] [phone] Follow Up with UCHE BRO MD, [facility] When:In 2 weeks Where:[address] [facility] [address] [place] [address]- [phone] Follow Up with DOV MEADE DO When:Within 1-2 days Where:[address] [facility] [address]- [phone] Additional Information: Please call the office to schedule a hospital follow up appointment. Follow Up Appointments No qualifying data available. Follow Up Labs/Studies Discharge Labs No Follow-up Labs Discharge Studies No Follow-up Studies Discharge Diet Discharge Diet - Ordered -- Type of Diet: Regular Diet, Calories Permitted: 1800 kcal, 04/19/25 15:09:00 EDT Discharge Activity Discharge Activity - Ordered -- Activity As Tolerated, 04/19/25 15:09:00 EDT Condition on Discharge Fair Discharge Disposition Home Information Provided To Patient Time Spent Total time spent reviewing labs, diagnostics, evaluating the patient, and medical decision makin minutes Digitally Signed by POP ROBERTSON MD on 04/19/2025 11:16 PM [id number] Discharge instructions Patient Education 04/19/2025 15:30:35 Shingles, Vhdq-hr-Vlvu Shingles Shingles is an infection. It gives you a painful skin rash and blisters that have fluid in them. Shingles is caused by the same germ (virus) that causes chickenpox. Shingles only happens in people who: Have had chickenpox. Have been given a shot of medicine (vaccine) to protect against chickenpox. Shingles is rare in this group. The first symptoms of shingles may be itching, tingling, or pain in an area on your skin. A rash will show on your skin a few days or weeks later. The rash is likely to be on one side of your body. The rash usually has a shape like a belt or a band. Over time, the rash turns into fluid-filled blisters. The blisters will break open, change into scabs, and dry up. Medicines may: Help with pain and itching. Help you get better sooner. Help to prevent long-term problems. Follow these instructions at home: Medicines Take mubi-noy-bimuprq and prescription medicines only as told by your doctor. Put on an anti-itch cream or numbing cream where you have a rash, blisters, or scabs. Do this as told by your doctor. Helping with itching and discomfort Put cold, wet cloths (cold compresses) on the area of the rash or blisters as told by your doctor. Cool baths can help you feel better. Try adding baking soda or dry oatmeal to the water to lessen itching. Do not bathe in hot water. Blister and rash care Keep your rash covered with a loose bandage (dressing). Wear loose clothing that does not rub on your rash. Keep your rash and blisters clean. To do this, wash the area with mild soap and cool water as told by your doctor. Check your rash every day for signs of infection. Check for: ?More redness, swelling, or pain. ?Fluid or blood. ?Warmth. ?Pus or a bad smell. Do not scratch your rash. Do not pick at your blisters. To help you to not scratch: ?Keep your fingernails clean and cut short. ?Wear gloves or mittens when you sleep, if scratching is a problem. General instructions Rest as told by your doctor. Keep all follow-up visits as told by your doctor. This is important. Wash your hands often with soap and water. If soap and water are not available, use hand camouflage assembler.Doing this lowers your chance of getting a skin infection caused by germs (bacteria). Your infection can cause chickenpox in people who have never had chickenpox or never got a shot of chickenpox vaccine. If you have blisters that did not change into scabs yet, try not to touch other people or be around other people, especially: ?Babies. ? women. ?Children who have areas of red, itchy, or rough skin (eczema). ?Very old people who have transplants. ?People who have a long-term (chronic) sickness, like cancer or AIDS. Contact a doctor if: Your pain does not get better with medicine. Your pain does not get better after the rash heals. You have any signs of infection in the rash area. These signs include: ?More redness, swelling, or pain around the rash. ?Fluid or blood coming from the rash. ?The rash area feeling warm to the touch. ?Pus or a bad smell coming from the rash. Get help right away if: The rash is on your face or nose. You have pain in your face or pain by your eye. You lose feeling on one side of your face. You have trouble seeing. You have ear pain, or you have ringing in your ear. You have a loss of taste. Your condition gets worse. Summary Shingles gives you a painful skin rash and blisters that have fluid in them. Shingles is an infection. It is caused by the same germ (virus) that causes chickenpox. Keep your rash covered with a loose bandage (dressing). Wear loose clothing that does not rub on your rash. If you have blisters that did not change into scabs yet, try not to touch other people or be aroundpeople. This information is not intended to replace advice given to you by your health care provider. Make sure you discuss any questions you have with your health care provider. Document Released: 03/23/2009 Document Revised: 01/27/2020 Document Reviewed: 06/09/2018 [employer] Patient Education 2019 [employer]. Follow Up Care 04/16/2025 23:20:01 With:MD IZZY JONES MD Address: [address] [facility] [address] Gastroenterology[facility] [address]- [phone] When:Within 3 Week(s) With:UCHE BRO MD, [facility] Address: [address] [facility] [address] [place] [address]- [phone] When:Within 2 Week(s) With:DOV MEADE DO Address: [address] [facility] [address]- [phone] When:1-2 days Comments:Please call the office to schedule a hospital follow up appointment. [facility] 07-02-2025 Note Discharge Instructions Thank you for allowing [facility] to assist you with your healthcare needs. The following is importantdischarge information regarding your hospital visit. Your Care Team DOV MEADE DO Your Diagnosis Abdominal pain GERD (gastroesophageal reflux disease) Shingles What to do next Instructions From Your Doctor - Please take medications as prescribed and follow-up with your primary care physician nancy for symptom resolution and management. Short prescription of gabapentin is being provided for pains related to shingles. - Keep yourself hydrated. Take Miralax and stool softener on daily basis. Try to avoid opiates and discussed with your Primary care physician to adjust your medications. -Follow-up with gastroenterology as well as urology. -If your symptoms worsen, call your primary physician or go to nearest ER. Follow Up Appointments Follow Up with MD IZZY JONES MD When:In 3 weeks Where:[address] Gastroenterology[facility] [place] [address] [phone] Follow Up with UCHE BRO MD, [facility] When:In 2 weeks Where:[address] [facility] [address] [place] [address]- [phone] Follow Up with DOV MEADE DO When:Within 1-2 days Where:[address] [facility] [address]- [phone] Additional Information: Please call the office to schedule a hospital follow up appointment. The Following Activity and Diet Have Been Ordered for You Discharge Activity - Ordered -- Activity As Tolerated, 04/19/25 15:09:00 EDT Discharge Diet - Ordered -- Type of Diet: Regular Diet, Calories Permitted: 1800 kcal, 04/19/25 15:09:00 EDT The Following Treatments Have Been Ordered for You Discharge Labs No qualifying data available. Discharge Radiology No qualifying data available. Other Therapies No qualifying data available. Post Acute Orders No qualifying data available. Allergies Demerol HCl Rash morphine Rash Medications Please ask your primary doctor or pharmacist before taking any other medication not listed, including over the counter drugs, herbal medications, vitamins and or supplements as they may interact withyour home medications. What How Much When Why Instructions Last Dose New valACYclovir (valACYclovir 500 mg oral tablet) 2 tab(s) by mouth Every 8 hours Duration: 5 Days Pickup at [facility]/pharmacy #[id number] Changed dicyclomine (dicyclomine 10 mg oral capsule) 1 cap by mouth Four (4) times a day Duration: 30 Days 28 EA, 0 Refill(s), TAKE 1 CAPSULE BY MOUTH 4 TIMES A DAY FOR 7 Changed gabapentin (Neurontin 100 mg oral capsule) 1 cap by mouth Three (3) times a day Shingles Duration: 14 Days Pickup at [facility]/pharmacy #[id number] Changed herbal/ nutritional product (Probiotic) 1 capsule by mouth Every day Changed medroxyPROGESTERone (medroxyPROGESTERone 5 mg oral tablet) 1 tab(s) by mouth Every day Changed omeprazole (omeprazole 20 mg oral delayed release capsule) 2 cap by mouth Once a day GERD (gastroesophageal reflux disease) Unchanged DULoxetine (DULoxetine 30 mg oral delayed release capsule) 1 cap by mouth Once a day Unchanged estradiol (estradiol 1 mg oral tablet) 2 tab(s) by mouth Once a day Unchanged metFORMIN (MetFORMIN (Eqv-Glucophage XR) 500 mg oral tablet, EXTENDED RELEASE) 1 tab(s) by mouth Two (2) times a day Non-osmotic formulation please Unchanged naltrexone (naltrexone 50 mg oral tablet) See instructions 0.5 Tablets Oral Daily NOT TO TAKE SAME DAY NORCO Unchanged nitrofurantoin (nitrofurantoin macrocrystals 100 mg oral capsule) TAKE 1 CAPSULE BY MOUTH EVERY DAY AT BEDTIME WITH FOOD Unchanged ondansetron (ondansetron 4 mg oral tablet, disintegrating) 1 tab(s) by mouth Every 6 hours as needed for Nausea/Vomiting Unchanged scopolamine (scopolamine 1 mg/ 72 hr transdermal film, extended release) 1 patch(es) Topical Every 72 hours as needed for as needed for motion sickness Unchanged traZODone (traZODone 100 mg oral tablet) 2 tab(s) by mouth Daily at bedtime Unchanged venlafaxine (venlafaxine 37.5 mg oral capsule, extended release) 1 cap by mouth Once a day Decrease from 75mg to 37.5mg for 2-4 weeks before cessation. May start duloxetine 2 weeks before cessation Pharmacy Information [facility]/pharmacy #[id number]: [address] [place], [place] [phone] What How Much When Why Comments Stop Taking buPROPion (buPROPion 75 mg oral tablet) 1 tab(s) by mouth Every day Stop Taking predniSONE (prednisone 10mg tab (TAPER)) Taper 85-56-11-10-5 mg by mouth Every day SI (sacroiliac) pain Duration: 14 Days Take 6 tabs daily x 3days, then 4 tabs daily x 3days, then 2 tabs daily x 3days,then 1 tab daily x 3days,then 1/ 2 tab daily x 2 days Stop Taking testosterone (Testosterone (Eqv-AndroGel Packets) 20.25 mg/ packet (1.62%) transdermal gel) 1 Packet(s) Transdermal Once a day (in the morning) Hypoactive sexual desire disorder apply to skin Please take this list to your next doctor s visit. Bring all medications you take, including over the counter medications, herbals and other supplements with you to your doctor s visit. Patients and families are reminded to discard old lists and to update any records with all medication providers or retail pharmacies. Education Materials Shingles Shingles is an infection. It gives you a painful skin rash and blisters that have fluid in them. Shingles is caused by the same germ (virus) that causes chickenpox. Shingles only happens in people who: Have had chickenpox. Have been given a shot of medicine (vaccine) to protect against chickenpox. Shingles is rare in this group. The first symptoms of shingles may be itching, tingling, or pain in an area on your skin. A rash will show on your skin a few days or weeks later. The rash is likely to be on one side of your body. The rash usually has a shape like a belt or a band. Over time, the rash turns into fluid-filled blisters. The blisters will break open, change into scabs, and dry up. Medicines may: Help with pain and itching. Help you get better sooner. Help to prevent long-term problems. Follow these instructions at home: Medicines Take uflg-mwy-rfijwbt and prescription medicines only as told by your doctor. Put on an anti-itch cream or numbing cream where you have a rash, blisters, or scabs. Do this as told by your doctor. Helping with itching and discomfort Put cold, wet cloths (cold compresses) on the area of the rash or blisters as told by your doctor. Cool baths can help you feel better. Try adding baking soda or dry oatmeal to the water to lessen itching. Do not bathe in hot water. Blister and rash care Keep your rash covered with a loose bandage (dressing). Wear loose clothing that does not rub on your rash. Keep your rash and blisters clean. To do this, wash the area with mild soap and cool water as told by your doctor. Check your rash every day for signs of infection. Check for: ? More redness, swelling, or pain. ? Fluid or blood. ? Warmth. ? Pus or a bad smell. Do not scratch your rash. Do not pick at your blisters. To help you to not scratch: ? Keep your fingernails clean and cut short. ? Wear gloves or mittens when you sleep, if scratching is a problem. General instructions Rest as told by your doctor. Keep all follow-up visits as told by your doctor. This is important. Wash your hands often with soap and water. If soap and water are not available, use hand camouflage assembler.Doing this lowers your chance of getting a skin infection caused by germs (bacteria). Your infection can cause chickenpox in people who have never had chickenpox or never got a shot of chickenpox vaccine. If you have blisters that did not change into scabs yet, try not to touch other people or be around other people, especially: ? Babies. ? women. ? Children who have areas of red, itchy, or rough skin (eczema). ? Very old people who have transplants. ? People who have a long-term (chronic) sickness, like cancer or AIDS. Contact a doctor if: Your pain does not get better with medicine. Your pain does not get better after the rash heals. You have any signs of infection in the rash area. These signs include: ? More redness, swelling, or pain around the rash. ? Fluid or blood coming from the rash. ? The rash area feeling warm to the touch. ? Pus or a bad smell coming from the rash. Get help right away if: The rash is on your face or nose. You have pain in your face or pain by your eye. You lose feeling on one side of your face. You have trouble seeing. You have ear pain, or you have ringing in your ear. You have a loss of taste. Your condition gets worse. Summary Shingles gives you a painful skin rash and blisters that have fluid in them. Shingles is an infection. It is caused by the same germ (virus) that causes chickenpox. Keep your rash covered with a loose bandage (dressing). Wear loose clothing that does not rub on your rash. If you have blisters that did not change into scabs yet, try not to touch other people or be aroundpeople. This information is not intended to replace advice given to you by your health care provider. Make sure you discuss any questions you have with your health care provider. Document Released: 03/23/2009 Document Revised: 01/27/2020 Document Reviewed: 06/09/2018 Elsevier Patient Education 2020 [employer] Additional Information VACCINATE! IT SAVES LIVES! Members of the community who have not yet received the COVID-19 vaccine and would like to receive it can visit one of [facility] vaccine clinics. There are many vaccine clinic locations within the [facility]. For locations and available times, please visit https://gettheshot.coronavirus.[place].gov/. It is important to note that some COVID mobile vaccine clinics are held outdoors and may be canceled in rainy or stormy conditions. To learn more about pediatric vaccinations (ages 5-11), we invite you to visit the [employer] webpage. [email or web address]/pages/[email or web address]-[email or web address]-Zkjrrehhoh-Cunrp-Hwk stions.htmlTo learn more about the COVID-19 vaccine, we invite you to visit the CDC website for a list of frequently asked questions.https://www.cdc.gov/coronavirus/2019-ncov/vaccines/faq.html [employer] Patient Portal Access Instructions: Stay connected with your healthcare team and access your personal medical information anytime with the [employer] Patient Portal. Please follow the directions below to create your [employer] account: 1.Access the email account you provided upon registration to the hospital/physician office.2.Look for an invitation email from [facility].3.Open the email and access the invitation link: AcceptInvitation to [facility].4.Fill in the required diaz to create your account. To access your account, visit [employer]. Click the blue button labeled Access Patient Portal and then log in with the username and password that you created in the steps above. You will be able to view your test results, lab results, a summary of your visits, upcoming appointments and more. There is also a convenient messaging option where you can send secure messages to your p rovider. In addition, you will have the ability to download any documents or summaries to your computer and/or send the information securely to a physician. Remember that your healthcare information is confidential, so carefully consider who you will allowto register on the [facility] Patient Portal for access to your information. You can also access the [facility] Patient Portal on the [facility] nely. Simply click on Patient Portal and then log into your account. If you would like to receive a full copy of your medical records, please contact the [facility] Medical Records Department by calling [phone], Thursday through Thursday between 8 a.m. and 4:30 p.m. HOW TO SAFELY DISPOSE OF PRESCRIPTION MEDICATIONS Please use one of the following methods to safely dispose of your unused medications. 1.Use a drug disposal kit: the drug disposal pouch allows you to safely discard your old and unuseddrugs. Ask your nurse to give you one when you are discharged.2.Visit a local take-back location: Many local pharmacies and police departments have programs that collect old and unwanted prescriptiondrugs. Call your local pharmacy or go to http://iKoa/6Y4Zg7i to find one close to you.3.Make use of household items: Use cat litter or old coffee grounds to dispose medications if other options arenot available. Mix your drugs with these household products, seal them in an airtight container andthrow it into the garbage. Call [facility]: [phone] to be sure your drugs can be disposed of in this way. Some medicines may require a different approach.4.Never flush your medications down the toilet. IF YOU HAVE BEEN PRESCRIBED AN OPIOID FOR PAIN If you have been prescribed an opioid (such as hydrocodone, oxycodone or morphine), it is critical to understand the possible side effects and risks of opioid pain medications. Even when taken as directed, opioids can have several side effects including: Tolerance, meaning you might need to take more of a medication for the same pain relief. Nausea, vomiting and/or constipation. Sleepiness, dizziness, dry mouth, confusion, depression or itching. Physical dependence, meaning you have withdrawal symptoms when a medication is stopped, can develop within a few days. KNOW YOUR RESPONSIBILITIES It is important to know exactly how much and how often to take the opioid pain medications you are prescribed. Never take opioids in higher amounts or more often than prescribed. Do not combine opioids with alcohol or other drugs that cause drowsiness, such as benzodiazepines, also known as benzos, including diazepam and alprazolam, muscle relaxants or sleep aids. Never sell or share prescription opioids. This is illegal. Store opioids in a secure place and out of reach of others (including children, family, friends and visitors). The last page of this document has been signed and retained as a CHART COPY. Signatures Patient Education Materials Shingles, [id number] Medication Leaflets My discharge plan and instructions have been reviewed and explained to me and I,JANES, ASHLEY understand my current condition and have read and understand these discharge instructions. I have received a written copy of the plan/instructions. If I have questions, I am aware that I should contact my doctor. 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 Goode is a 54-year-old white female who we are not familiar with who does carry chronic GI complaints of IBS constipation dominant and GERD. Patient has been experiencing severe onset of acute abdominal pain since last Thursday with no apparent provocative factors. There was no known trigger. The pain is described as intense sharp and stabbing affecting the right upper middle and lower quadrant. There is been no apparent change in bowel pattern. Patient has understood Mining chronic constipation has been tested in the past with a confirmed sits marker study confirming moderate to severe constipation. She can typically go 7 to 10 days without a bowel movement if not longer. She has failed on multiple medical therapies but she cannot tell me exactly which ones other than MiraLAX and Linzess with certain. She has been endoscopically evaluated both upper and lower I do not have theresults of her reports but apparently no significant findings. She states that she always has hadGI issues including postprandial abdominal discomfort for years which she states that this is not same. The pain that she is experiencing since last Thursday is new and different. Imaging and labs at this point been unyielding. She typically takes antispasmodic such as Bentyl for her IBS pain which has not been effective for this current pain. She is also not gotten any results from inpatient pain relief current opioid. There has been no signs of GI bleeding. There is some nausea and a decreased appetite but no vomiting. Does have chronic GERD mostly controlled. Review of Systems No reported weight loss No flulike symptoms fevers chills sweats myalgias As stated in HPI Physical Exam Vitals and Measurements T: 36.6 C (Oral) TMIN: 36.4 C (Oral) TMAX: 36.7 C (Oral) HR: 70 RR: 18 BP: 112/80 SpO2: 92% HT: 162.6 cm WT: 86.0 kg BMI: 32.53 Weight Dosing Weight: 86 kg (04/17/25) Dosing Weight: 86 kg (04/16/25) Patient is in some distress She cannot get comfortable she holds her right upper quadrant right-sided abdomen Skin is clear no rash no jaundice No extremity edema Eyes are nonicteric, Koza be moist neck supple Lungs are clear Heart regular rhythm no loud murmur Abdomen obese moderately distended soft tenderness right-sided Positive guarding no rebound Rectal deferred Lab Results 04/17 07:39 WBC: 6.1 Hgb: 12.1 Hct: 34.8 Platelet: 275 Neutrophil %: 60.2 Glucose Level: 107 Sodium Level: 139 Potassium Level: 3.9 BUN: 13.0 Creatinine Lvl (s): 0.88 04/16 23:59 WBC: 5.9 Hgb: 12.8 Hct: 36.9 Platelet: 295 Neutrophil %: 58.0 Glucose Level: 121 H Sodium Level: 138 Potassium Level: 3.6 BUN: 11.0 Creatinine Lvl (s): 0.91 Imaging Results and Diagnostics (04/15/2025 16:[address] Abd/Pelvis w/ IV Contrast Only) FINDINGS: The heart is normal in size. No pericardial thickening. Trace amount of pericardial recess fluid. Atelectasis and scarring noted within the lung bases. The aorta is nonaneurysmal with minimal atherosclerosis. No adenopathy within the abdomen or pelvis. Stable 2 cm left hepatic lobe cyst. The gallbladder, spleen, pancreas, and bilateral adrenal glands are unremarkable. Kidneys enhance symmetrically. Bilateral nephrolithiasis. No hydronephrosis. Stable left midpole simple renal cyst. Bladder is unremarkable. Uterus is unremarkable. Suspected left fallopian tube closure device. No adnexal lesion. No pneumoperitoneum or free fluid. The large and small bowel are normal in caliber. Normal appendix. No inflammatory changes of the GI tract. Duodenal diverticulum noted. No acute osseous abnormality. IMPRESSION: No acute finding. Bilateral nonobstructive nephrolithiasis. I have personally reviewed the images of this examination and agree with the resident's findings and interpretation. [1] (04/17/2025 02:49 EDT US Abdomen Limited) IMPRESSION: 1. No gallstones. Gallbladder wall is at the upper limits of normal. 2. Common bile duct is mildly dilated measuring 8 mm. 3. Nonobstructing right renal calculus. [2] EKG EC04/17/25: SINUS RHYTHM LEFT AXIS DEVIATION Electro Assessment/Plan Abdominal pain Acute onset of right-sided pain Patient with history of chronic abdominal pain and IBS constipation dominant but full workup in thepast by other GI groups Patient states that the pain currently is different than her chronic pain CT abdomen and ultrasound unyielding Labs not helpful Surgical team is already seen By her description this is likely colonic in origin Less likely small bowel Not consistent with biliary Plan Consider repeat abdomen with oral contrast Doubt vascular component but consider CTA to better define and CTE to look at the small bowel Continue supportive measures Further following GERD (gastroesophageal reflux disease) Problem List/Past Medical History Ongoing At risk for colon cancer Degenerative disc disease, cervical Fatigue GERD (gastroesophageal reflux disease) History of kidney disease Hot flashes due to menopause IBS (irritable bowel syndrome) Insomnia Knee pain, bilateral Long-term current use of proton pump inhibitor therapy Major depressive disorder, recurrent Mixed hyperlipidemia Neck pain Pes anserinus bursitis of right knee Plantar fasciitis Postmenopausal HRT (hormone replacement therapy) Renal calculi Right shoulder pain Rotator cuff tear, right Somatic dysfunction of cervical region Somatic dysfunction of lower extremity Somatic dysfunction of lumbar region Somatic dysfunction of pelvic region Somatic dysfunction of rib region Somatic dysfunction of sacral region Somatic dysfunction of thoracic region Strain of muscle of multiple sites Trochanteric bursitis, left hip Historical Lumbago of lumbar region with sciatica Spasm of thoracic back muscle Suspected COVID-19 virus infection UTI (urinary tract infection) Procedure/Surgical History Rotator cuff tear: 01/12/25 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 Ureter Kidney Discectomy Elbow section H/O: tubal ligation Dilation and curettage of uterus Ovarian cystectomy Medications Inpatient Dextrose 50% IV Push, 25 gram(s)= 50 mL, IV Push, AsDirected, PRN Dulcolax Laxative, 10 mg= 1 supp, Rectal, qDay, PRN DULoxetine, 30 mg= 1 cap(s), Oral, qDay DuoNeb, 3 mL, Inhalation, q4hRT, PRN Effexor XR, 37.5 mg= 1 cap(s), Oral, qDay estradiol 2 mg oral tablet, 2 mg= 1 tab(s), Oral, qDay guaiFENesin, 200 mg= 10 mL, Oral, q4h, PRN HumaLOG 100 units/mL subcutaneous solution, Give 0-10 units/dose, Subcutaneous, TIDAC Lovenox, 40 mg= 0.4 mL, Subcutaneous, qDay Macrobid, 100 mg= 1 cap(s), Oral, qHS medroxyPROGESTERone 2.5 mg oral tablet, 5 mg= 2 tab(s), Oral, qDay melatonin, 3 mg= 1 tab(s), Oral, qHS, PRN Miralax Powder Packet, 17 gram(s)= 15 mL, Oral, qDay, PRN Miralax Powder Packet, 17 gram(s)= 15 mL, Oral, qDay morphine, 4 mg= 1 mL, IV Push, q3h, PRN Brewer 325- 5 mg oral tablet, 1 tab(s), Oral, q4h, PRN NS 1,000 mL, 1000 mL, Intravenous omeprazole, 20 mg= 1 cap(s), Oral, qDay prochlorperazine, 5 mg= 1 mL, IV Push, q6h, PRN traZODone, 200 mg= 2 tab(s), Oral, qHS Tylenol, 650 mg= 2 tab(s), Oral, q4h, PRN Tylenol, 650 mg= 2 tab(s), Oral, q4h, PRN Zofran, 4 mg= 2 mL, IV Push, q4h, PRN Home buPROPion 75 mg oral tablet, 75 mg= 1 tab(s), Oral, Daily, Not taking dicyclomine 10 mg oral capsule, 10 mg= 1 cap(s), Oral, QID, Not taking dicyclomine 10 mg oral capsule, 10 mg= 1 cap(s), Oral, QID, Not taking DULoxetine 30 mg oral delayed release capsule, 30 mg= 1 cap(s), Oral, qDay, 1 refills estradiol 1 mg oral tablet, 2 mg= 2 tab(s), Oral, qDay, 3 refills gabapentin 600 mg oral tablet, Not taking medroxyPROGESTERone 5 mg oral tablet, 5 mg= 1 tab(s), Oral, Daily, 1 refills medroxyPROGESTERone 5 mg oral tablet, See Instructions, 3 refills MetFORMIN (Eqv-Glucophage XR) 500 mg oral tablet, EXTENDED RELEASE, 500 mg= 1 tab(s), Oral, BID, 1 refills, Not taking naltrexone 50 mg oral tablet, See Instructions, Not taking nitrofurantoin macrocrystals 100 mg oral capsule Brewer 325- 5 mg oral tablet, 1 tab(s), Oral, q6h, PRN omeprazole 20 mg oral delayed release capsule, 20 mg= 1 cap(s), Oral, qDay ondansetron 4 mg oral tablet, disintegrating, 4 mg= 1 tab(s), Oral, q6h, PRN prednisone 10mg tab (TAPER), Taper 96-58-81-10-5 mg, Oral, Daily, Not taking Probiotic, 1 capsule, Oral, Daily, Not taking scopolamine 1 mg/72 hr transdermal film, extended release, 1 patch(es), Topical, q72h, PRN, Not taking Testosterone (Eqv-AndroGel Packets) 20.25 mg/packet (1.62%) transdermal gel, 1 packet(s), Transdermal, qAM, 1 refills, Not taking traZODone 100 mg oral tablet, 200 mg= 2 tab(s), Oral, qHS turmeric 500 mg oral capsule, See Instructions venlafaxine 37.5 mg oral capsule, extended release, 37.5 mg= 1 cap(s), Oral, qDay Allergies Demerol HCl Rash morphine Rash Social History Smoking Status - 02/25/2018 Never smoker Alcohol - Denies Alcohol Use, 11/27/2017 Use: Current. Frequency: 1-2 times per week., 03/21/2025 Home/Environment Living situation: Home with assistance. Domestic Concerns: None. Primary Quality Supervisor: Self. Professional Skilled Services or Special Community Resources None. Marital Status: Unmarried., 02/24/2024 Nutrition/Health Type of diet: Regular. Caffeine intake amount: None. Appetite Good. Eating Difficulties None., 02/11/2024 Substance Abuse - Denies Substance Abuse, 11/27/2017 Use: Never., 06/02/2019 Tobacco - Denies Tobacco Use, 04/08/2020 Tobacco Use: Never (less than 100 in lifetime)., 06/02/2019 Family History Asthma: Daughter. Colon cancer: Mother. Diabetes: Father. Diabetes mellitus: Father. Stroke: Father. Health Status Family Member(s) Immunizations hepatitis A adult vaccine: 0 unknown unit (06/03/10) SARS-CoV-2 mRNA (tozinameran) vaccine: 0.3 unknown unit (10/04/21) SARS-CoV-2 mRNA (tozinameran) vaccine: 0.3 unknown unit (09/05/21) tetanus/diphtheria/pertussMUL.ORD![id number]: 0 unknown unit (06/03/10) [1] CT Abd/Pelvis w/ IV Contrast Only; ILIR BORRERO MD 04/15/2025 16:36 EDT [2] US Abdomen Limited; MARQUIS WESLEY MD 04/17/2025 02:49 EDT Digitally Signed by JOSE LARIOS PA-C on 04/17/2025 01:55 PM [id number] Note Date of Service 04/18/2025 Chief Complaint Rash Subjective Patient seen and examined at bedside. Yesterday, her pain was uncontrolled and she developed a alan right-sided mid back coming towards her abdomen and she was started on Valtrex and gabapentin was sent. Does have persistent pain that comes comes in episodes and sharp. Also states had no bowel movement since she is here and has chronic constipation. Denying any nausea or vomiting. Objective Vitals and Measurements T: 37 C (Oral) TMIN: 36.3 C (Oral) TMAX: 37 C (Oral) HR: 70 RR: 18 BP: 121/74 SpO2: 96% Intake and Output 7AM Yesterday to 7AM Today Intake and Output (Last 24 hours) Intake Administration Information 1600.00 Oral Intake 840.00 Output Stool Count 0.00 Urine Count 5.00 Total Summary Total Intake 2440.00 Total Output 0.00 Fluid Balance 2440.00 Physical Exam General: Patient is not in acute distress Neck: Supple, No JVD HEENT: Normocephalic, atraumatic, Cardiac: Regular rate and rhythm, S1 and S2 present, no murmurs, rubs, or gallops appreciated Lungs: Clear to auscultation bilaterally, no wheezes, rhonchi, or rales appreciated Abdomen: Bowel sounds audible, abdomen is soft, rash on right-sided mid back and abdomen, no drainage, tender to touch Musculoskeletal: Preserved ROM in all 4 extremities Extremities: No clubbing or cyanosis, pitting edema Skin: Warm, well perfused, no bruises Neurological: Alert and orientated x3, No gross focal neurological deficits Weight Dosing Weight: 86 kg (04/17/25) Dosing Weight: 86 kg (04/16/25) Medications Medications (29) Active Scheduled: (15) duloxetine [address] capsule 30 mg 1 cap(s), Oral, qDay enoxaparin 40 mg/ 0.4mL syringe 40 mg 0.4 mL, Subcutaneous, qDay estradiol 2 mg Tablet 2 mg 1 tab(s), Oral, qDay gabapentin 100 mg Capsule 200 mg 2 cap(s), Oral, TID insulin lispro 100 units/mL Soln (3 mL) Give 0-10 units/dose, Subcutaneous, TIDAC lactulose 20 g/30 mL UD cup 20 gram(s) 30 mL, Oral, BID lidocaine patch REMOVAL 1 EA, Miscellaneous, q24h lidocaine topical 4% patch 1 patch(es), Transdermal, q24h medroxyprogesterone 2.5 mg Tablet 5 mg 2 tab(s), Oral, qDay nitrofurantoin macrocrystals 100 mg Capsule 100 mg 1 cap(s), Oral, qHS omeprazole [address] capsule 20 mg 1 cap(s), Oral, qDay polyethylene glycol 3350 - UD packet 17 gram(s) 15 mL, Oral, qDay traZODONE 100 mg Tablet 200 mg 2 tab(s), Oral, qHS valacyclovir 500 mg Tablet 1,000 mg 2 tab(s), Oral, q8h venlafaxine 37.5 mg ER capsule 37.5 mg 1 cap(s), Oral, qDay Continuous: (1) NS (0.9% nacl) 1,000 mL 1,000 mL, Intravenous, 100 mL/hr PRN: (13) acetaminophen 325 mg Tablet 650 mg 2 tab(s), Oral, q4h acetaminophen 325 mg Tablet 650 mg 2 tab(s), Oral, q4h acetaminophen-HYDROcodone 325-5 mg tablet 1 tab(s), Oral, q4h albuterol - ipratropium 2.5 mg-0.5 mg/3 mL Inhal Lula UD 3 mL, Inhalation, q4hRT bisacodyl 10 mg Suppository 10 mg 1 supp, Rectal, qDay dextrose 50% Solution Disp syringe 50 mL 25 gram(s) 50 mL, IV Push, AsDirected guaifenesin 100 mg/5 mL Liquid 120 mL 200 mg 10 mL, Oral, q4h HYDROmorphone 0.5 mg/0.5 mL syringe 0.5 mg 0.5 mL, IV Push, q4h melatonin 3 mg tablet 3 mg 1 tab(s), Oral, qHS morphine 4 mg/mL 1mL INJ 4 mg 1 mL, IV Push, q3h ondansetron 2 mg/ 1 mL 2 mL INJ 4 mg 2 mL, IV Push, q4h polyethylene glycol 3350 - UD packet 17 gram(s) 15 mL, Oral, qDay prochlorperazine 10 mg/2 mL vial 5 mg 1 mL, IV Push, q6h Lab Results 04/18 05:59 WBC: 6.0 Hgb: 12.7 Hct: 37.1 Platelet: 264 Neutrophil %: 67.1 Glucose Level: 124 H Sodium Level: 142 Potassium Level: 3.9 BUN: 7.0 L Creatinine Lvl (s): 0.92 04/17 07:39 WBC: 6.1 Hgb: 12.1 Hct: 34.8 Platelet: 275 Neutrophil %: 60.2 Glucose Level: 107 Sodium Level: 139 Potassium Level: 3.9 BUN: 13.0 Creatinine Lvl (s): 0.88 04/16 23:59 WBC: 5.9 Hgb: 12.8 Hct: 36.9 Platelet: 295 Neutrophil %: 58.0 Glucose Level: 121 H Sodium Level: 138 Potassium Level: 3.6 BUN: 11.0 Creatinine Lvl (s): 0.91 EKG EKG - Completed -- 04/17/25 22:13:00 EDT Assessment/Plan Abdominal pain GERD (gastroesophageal reflux disease) --Acute right-sided abdominal pain --Shingles --Chronic constipation --Punctate nephrolithiasis --Anxiety/depression --Prediabetes --chronic shoulder and neck pain Plan: -- Acute right-sided abdominal pain: Patient has been seen by GI, urology and gastroenterology.CT abdomen/pelvis without contrast yesterday also did not show any significant changes from prior exam. -Patient developed rash on right side of abdomen and back area consistent with shingles that could be contributing to her severe pain. Has been started on Valtrex and gabapentin was added for neuropathic pain control. Oral acyclovir application. Encourage oral hydration. Encourage her to limit opiate use and encouraged ambulation. Bowel regimen for constipation. - Repeat CT abdomen ordered with oral contrast can be held as likely cause of her pain could be developing shingles. -- Anxiety and depression, continue home medication -- Prediabetes on metformin at home, continue diabetic diet and insulin sliding scale -- Patient on nitrofurantoin medication as outpatient for prophylaxis for UTI, continue -- Chronic cervical spine pain and chronic right shoulder pain: Follows with orthopedic physician as outpatient, patient on Percocet as outpatient. -- Constipation, continue MiraLAX, lactulose, Dulcolax suppository as needed Level of Care Indication Regular Floor DVT Prophylaxis Enoxaparin SQ Maintenance IVF Indication Other: specify in note Indwelling Urinary Catheter Indication NA No indwelling catheter Anticipated Timeline of Discharge _Hopefully 24-48 hours if her symptoms start to improve Anticipated DC Disposition Home without services Digitally Signed by POP ROBERTSON MD on 04/18/2025 01:05 PM [id number] Urology Progress note Overnight patient developed rash typical of shingles over the right mid back extending medially. Onexam the rash is consistent with zoster and this would certainly explain her pain. Valtrex has beenstarted. Her repeat CT just showed some thickening of the right ureter but this would be consistentwith known right ureteral reimplant and this does not appear to be acute. Pain control per hospitalist team. Urology will sign off and patient will follow-up with her usual urologist for her nephrolithiasis. Digitally Signed by UCHE BRO MD on 04/18/2025 09:13 AM [id number] Note* Exam Date Time Procedure Performing Provider Status 04/17/25 10:23 PM Electrocardiogram - EKG - CV GAVI VILLALOBOS MD; Auth (Verified) ECG Final Report Sinus rhythm Nonspecific intraventricular conduction delay Electronic Signature: GAVI CASTANEDA MD 04/18/2025 10:02:40 [id number] Note Date of Service 04/17/2025 Chief Complaint Patient seen and examined today for right-sided abdominal pain Subjective Patient seen today, complains of right-sided abdominal pain which is going on for 5 days. Also has some nausea She stated that she is usually constipated, has bowel movement at home every 5 to 7 days, sometimesuses enema at home. Last bowel movement was 2 days ago. See H&P from today for more information Objective Vitals and Measurements T: 36.6 C (Oral) TMIN: 36.4 C (Oral) TMAX: 36.7 C (Oral) HR: 70 RR: 18 BP: 112/80 SpO2: 92% HT: 162.6 cm WT: 86.0 kg BMI: 32.53 Intake and Output 7AM Yesterday to 7AM Today Intake and Output (Last 24 hours) Intake Output Urine Count 1.00 Total Summary Total Intake 0.00 Total Output 0.00 Fluid Balance 0.00 Physical Exam General Appearance: Patient appears healthy, well-developed, not in any acute distress. Cardiac: Normal rate and rhythm, S1-S2 heard, no murmurs heard. Lungs: Clear on auscultation bilaterally, no wheezes or rales. Abdomen: Tenderness to palpation of right side of abdomen Extremities: No pedal edema. Neurological: Alert ,oriented, no focal deficits. Weight Dosing Weight: 86 kg (04/17/25) Dosing Weight: 86 kg (04/16/25) Medications Medications (23) Active Scheduled: (10) duloxetine [address] capsule 30 mg 1 cap(s), Oral, qDay enoxaparin 40 mg/ 0.4mL syringe 40 mg 0.4 mL, Subcutaneous, qDay estradiol 2 mg Tablet 2 mg 1 tab(s), Oral, qDay insulin lispro 100 units/mL Soln (3 mL) Give 0-10 units/dose, Subcutaneous, TIDAC medroxyprogesterone 2.5 mg Tablet 5 mg 2 tab(s), Oral, qDay nitrofurantoin macrocrystals 100 mg Capsule 100 mg 1 cap(s), Oral, qHS omeprazole [address] capsule 20 mg 1 cap(s), Oral, qDay polyethylene glycol 3350 - UD packet 17 gram(s) 15 mL, Oral, qDay traZODONE 100 mg Tablet 200 mg 2 tab(s), Oral, qHS venlafaxine 37.5 mg ER capsule 37.5 mg 1 cap(s), Oral, qDay Continuous: (1) NS (0.9% nacl) 1,000 mL 1,000 mL, Intravenous, 125 mL/hr PRN: (12) acetaminophen 325 mg Tablet 650 mg 2 tab(s), Oral, q4h acetaminophen 325 mg Tablet 650 mg 2 tab(s), Oral, q4h acetaminophen-HYDROcodone 325-5 mg tablet 1 tab(s), Oral, q4h albuterol - ipratropium 2.5 mg-0.5 mg/3 mL Inhal Lula UD 3 mL, Inhalation, q4hRT bisacodyl 10 mg Suppository 10 mg 1 supp, Rectal, qDay dextrose 50% Solution Disp syringe 50 mL 25 gram(s) 50 mL, IV Push, AsDirected guaifenesin 100 mg/5 mL Liquid 120 mL 200 mg 10 mL, Oral, q4h melatonin 3 mg tablet 3 mg 1 tab(s), Oral, qHS morphine 4 mg/mL 1mL INJ 4 mg 1 mL, IV Push, q3h ondansetron 2 mg/ 1 mL 2 mL INJ 4 mg 2 mL, IV Push, q4h polyethylene glycol 3350 - UD packet 17 gram(s) 15 mL, Oral, qDay prochlorperazine 10 mg/2 mL vial 5 mg 1 mL, IV Push, q6h Lab Results 04/17 07:39 WBC: 6.1 Hgb: 12.1 Hct: 34.8 Platelet: 275 Neutrophil %: 60.2 Glucose Level: 107 Sodium Level: 139 Potassium Level: 3.9 BUN: 13.0 Creatinine Lvl (s): 0.88 04/16 23:59 WBC: 5.9 Hgb: 12.8 Hct: 36.9 Platelet: 295 Neutrophil %: 58.0 Glucose Level: 121 H Sodium Level: 138 Potassium Level: 3.6 BUN: 11.0 Creatinine Lvl (s): 0.91 EKG EKG (ED) - Completed -- 04/16/25 23:42:00 EDT, 04/16/25 23:42:00 EDT Assessment/Plan Abdominal pain Ordered: acetaminophen-hydrocodone(Brewer 325- 5 mg oral tablet), 1 tab(s), Oral, q4h, PRN GERD (gastroesophageal reflux disease) Ordered: omeprazole, 20 mg= 1 cap(s), Oral, qDay Time Spent 1. Acute right-sided abdominal pain: Etiology unclear - CT abdomen on 04/15/2025 at [place] [facility] did not show any acute finding - Ultrasound of abdomen on 04/17/2025 did not show any gallstones. Gallbladder wall is at the upper limits of normal. CBD is mildly dilated measuring 8 mm. Nonobstructing right renal calculus. - General Surgery was consulted, does not appear to have any acute findings from her gallbladder orcolon, they signed off and recommended urology evaluation given history of kidney stones. - Urology was consulted, patient has few tiny punctate calyceal stones seen bilaterally on current CT. Urinalysis is clear. As per urology, no evidence of urological etiology of patient's pain GI was also consulted, recommended to consider repeat CT abdomen with oral contrast. - Repeat CT abdomen ordered with oral contrast, await results - Pain control, fluids 2. Anxiety and depression, continue home medication 3. Prediabetes on metformin at home, continue diabetic diet and insulin sliding scale 5. Patient on nitrofurantoin medication as outpatient for prophylaxis for UTI, continue 4. Chronic cervical spine pain and chronic right shoulder pain: Follows with orthopedic physician as outpatient, patient on Percocet as outpatient. 5. Constipation, continue MiraLAX, Dulcolax suppository as needed Level of Care Indication Regular Floor DVT Prophylaxis Enoxaparin SQ Maintenance IVF Indication Other: specify in note Indwelling Urinary Catheter Indication NA No indwelling catheter Anticipated Timeline of Discharge _When abdominal pain improves CT pending Anticipated DC Disposition Home without services I called patient's daughter Aleksey to provide update. Patient's daughter mentioned that patient hadright shoulder surgery in December and taking pain meds as outpatient. Patient daughter is concerned if her mother is abusing pain medications. I explained to her that workup for pain is ongoing at thispoint. Digitally Signed by JEY RODAS MD on 04/17/2025 04:08 PM [id number] Note* Exam Date Time Procedure Performing Provider Status 04/17/25 6:[address] Abdomen/Pelvis w/ Oral Contrast Only LAWSON DESAI MD; Auth (Verified) [id number] ORIGINAL EXAMINATION: CT OF THE ABDOMEN AND PELVIS WITHOUT CONTRAST 04/17/2025 6:02 pm TECHNIQUE: CT of the abdomen and pelvis was performed without the administration of intravenous contrast. Multiplanar reformatted images are provided for review. Automated exposure control, iterative reconstruction, and/or weight based adjustment of the mA/kV was utilized to reduce the radiation dose to as low as reasonably achievable. COMPARISON: CT abdomen pelvis April 15, 2025 HISTORY: ORDERING SYSTEM PROVIDED HISTORY: Reason for Exam: Abdominal pain, acute, nonlocalized, PT C/O RLQ STABBING PAIN FINDINGS: Lower Chest: Bibasilar atelectatic changes. Trace bilateral pleural fluid. Organs: Suggested mild wall thickening of the right ureter. Otherwise no significant change from prior exam. GI/Bowel: No bowel obstruction, pneumoperitoneum, or ascites. Unremarkable appendix. Pelvis: No acute findings. Peritoneum/Retroperitoneum: Nonaneurysmal abdominal aorta. No enlarged lymph nodes. Bones/Soft Tissues: No acute osseous abnormality. IMPRESSION: Suggested mild wall thickening of the right ureter; correlate with urinalysis for possible ascending urinary tract infection. Otherwise no significant change from prior exam. Interpreted by: Lawson Desai Preliminary Report By: Lawson Desai Electronically signed By Lawson Desai Dictated Date: 04/17/2025 6:27:32 PM Prelim Date: 04/17/2025 6:33:42 PM Sign Date: 04/17/2025 6:33:42 PM Ordering Provider: JEY RODAS Interpreted by: Lawson Desai Preliminary Report By: Lawson Desai Electronically signed By Lawson Desai Dictated Date: 04/17/2025 6:27:32 PM Prelim Date: 04/17/2025 6:33:42 PM Sign Date: 04/17/2025 6:33:42 PM Ordering Provider: JEY [facility]06-30-2025 Note Date of Service 04/17/2025 Chief Complaint Patient seen and examined today for right-sided abdominal pain Subjective Patient seen today, complains of right-sided abdominal pain which is going on for 5 days. Also has some nausea She stated that she is usually constipated, has bowel movement at home every 5 to 7 days, sometimesuses enema at home. Last bowel movement was 2 days ago. See H&P from today for more information Objective Vitals and Measurements T: 36.6 C (Oral) TMIN: 36.4 C (Oral) TMAX: 36.7 C (Oral) HR: 70 RR: 18 BP: 112/80 SpO2: 92% HT: 162.6 cm WT: 86.0 kg BMI: 32.53 Intake and Output 7AM Yesterday to 7AM Today Intake and Output (Last 24 hours) Intake Output Urine Count 1.00 Total Summary Total Intake 0.00 Total Output 0.00 Fluid Balance 0.00 Physical Exam General Appearance: Patient appears healthy, well-developed, not in any acute distress. Cardiac: Normal rate and rhythm, S1-S2 heard, no murmurs heard. Lungs: Clear on auscultation bilaterally, no wheezes or rales. Abdomen: Tenderness to palpation of right side of abdomen Extremities: No pedal edema. Neurological: Alert ,oriented, no focal deficits. Weight Dosing Weight: 86 kg (04/17/25) Dosing Weight: 86 kg (04/16/25) Medications Medications (23) Active Scheduled: (10) duloxetine [address] capsule 30 mg 1 cap(s), Oral, qDay enoxaparin 40 mg/ 0.4mL syringe 40 mg 0.4 mL, Subcutaneous, qDay estradiol 2 mg Tablet 2 mg 1 tab(s), Oral, qDay insulin lispro 100 units/mL Soln (3 mL) Give 0-10 units/dose, Subcutaneous, TIDAC medroxyprogesterone 2.5 mg Tablet 5 mg 2 tab(s), Oral, qDay nitrofurantoin macrocrystals 100 mg Capsule 100 mg 1 cap(s), Oral, qHS omeprazole [address] capsule 20 mg 1 cap(s), Oral, qDay polyethylene glycol 3350 - UD packet 17 gram(s) 15 mL, Oral, qDay traZODONE 100 mg Tablet 200 mg 2 tab(s), Oral, qHS venlafaxine 37.5 mg ER capsule 37.5 mg 1 cap(s), Oral, qDay Continuous: (1) NS (0.9% nacl) 1,000 mL 1,000 mL, Intravenous, 125 mL/hr PRN: (12) acetaminophen 325 mg Tablet 650 mg 2 tab(s), Oral, q4h acetaminophen 325 mg Tablet 650 mg 2 tab(s), Oral, q4h acetaminophen-HYDROcodone 325-5 mg tablet 1 tab(s), Oral, q4h albuterol - ipratropium 2.5 mg-0.5 mg/3 mL Inhal Lula UD 3 mL, Inhalation, q4hRT bisacodyl 10 mg Suppository 10 mg 1 supp, Rectal, qDay dextrose 50% Solution Disp syringe 50 mL 25 gram(s) 50 mL, IV Push, AsDirected guaifenesin 100 mg/5 mL Liquid 120 mL 200 mg 10 mL, Oral, q4h melatonin 3 mg tablet 3 mg 1 tab(s), Oral, qHS morphine 4 mg/mL 1mL INJ 4 mg 1 mL, IV Push, q3h ondansetron 2 mg/ 1 mL 2 mL INJ 4 mg 2 mL, IV Push, q4h polyethylene glycol 3350 - UD packet 17 gram(s) 15 mL, Oral, qDay prochlorperazine 10 mg/2 mL vial 5 mg 1 mL, IV Push, q6h Lab Results 04/17 07:39 WBC: 6.1 Hgb: 12.1 Hct: 34.8 Platelet: 275 Neutrophil %: 60.2 Glucose Level: 107 Sodium Level: 139 Potassium Level: 3.9 BUN: 13.0 Creatinine Lvl (s): 0.88 04/16 23:59 WBC: 5.9 Hgb: 12.8 Hct: 36.9 Platelet: 295 Neutrophil %: 58.0 Glucose Level: 121 H Sodium Level: 138 Potassium Level: 3.6 BUN: 11.0 Creatinine Lvl (s): 0.91 EKG EKG (ED) - Completed -- 04/16/25 23:42:00 EDT, 04/16/25 23:42:00 EDT Assessment/Plan Abdominal pain Ordered: acetaminophen-hydrocodone(Brewer 325- 5 mg oral tablet), 1 tab(s), Oral, q4h, PRN GERD (gastroesophageal reflux disease) Ordered: omeprazole, 20 mg= 1 cap(s), Oral, qDay Time Spent 1. Acute right-sided abdominal pain: Etiology unclear - CT abdomen on 04/15/2025 at [place] [facility] did not show any acute finding - Ultrasound of abdomen on 04/17/2025 did not show any gallstones. Gallbladder wall is at the upper limits of normal. CBD is mildly dilated measuring 8 mm. Nonobstructing right renal calculus. - General Surgery was consulted, does not appear to have any acute findings from her gallbladder orcolon, they signed off and recommended urology evaluation given history of kidney stones. - Urology was consulted, patient has few tiny punctate calyceal stones seen bilaterally on current CT. Urinalysis is clear. As per urology, no evidence of urological etiology of patient's pain GI was also consulted, recommended to consider repeat CT abdomen with oral contrast. - Repeat CT abdomen ordered with oral contrast, await results - Pain control, fluids 2. Anxiety and depression, continue home medication 3. Prediabetes on metformin at home, continue diabetic diet and insulin sliding scale 5. Patient on nitrofurantoin medication as outpatient for prophylaxis for UTI, continue 4. Chronic cervical spine pain and chronic right shoulder pain: Follows with orthopedic physician as outpatient, patient on Percocet as outpatient. 5. Constipation, continue MiraLAX, Dulcolax suppository as needed Level of Care Indication Regular Floor DVT Prophylaxis Enoxaparin SQ Maintenance IVF Indication Other: specify in note Indwelling Urinary Catheter Indication NA No indwelling catheter Anticipated Timeline of Discharge _When abdominal pain improves CT pending Anticipated DC Disposition Home without services I called patient's daughter Aleksey to provide update. Patient's daughter mentioned that patient hadright shoulder surgery in December and taking pain meds as outpatient. Patient daughter is concerned if her mother is abusing pain medications. I explained to her that workup for pain is ongoing at thispoint. Digitally Signed by JEY RODAS MD on 04/17/2025 04:08 PM [id number] U[facility] Consult note Date of Service 04/17/2025 Reason for Consultation Abdominal pain, nephrolithiasis History of Present Illness Is a 54-year-old female with history of nephrolithiasis who presents with intractable right sided spasm-like upper abdominal pain radiating from the front to the back including both upper and lower quadrants. No neurological issues. No skin rash that would suggest shingles. No trauma. Patient states her pain is not typical of renal colic. She has required 6 surgeries, ureteroscopy to retrieve stones would not pass. About 8 years ago sheunderwent what sounds like a right ureteral reimplant probable Boari flap but then developed what sounds like reflux requiring low- dose suppressive nitrofurantoin long-term. She still is unable to pass stones on the right and about a year ago did have a procedure on the right side, what sounds likeureteroscopic stone extraction/laser lithotripsy. There is no hydronephrosis on CT scan. No clinical evidence of infection. Several small punctate bilateral stones were noted. A small medial cyst at the level of the collecting system/renal pelvis ispresent and this was also present on a CT reviewed from 2017 Physical Exam Vitals and Measurements T: 36.6 C (Oral) TMIN: 36.4 C (Oral) TMAX: 36.7 C (Oral) HR: 70 RR: 18 BP: 112/80 SpO2: 92% HT: 162.6 cm WT: 86.0 kg BMI: 32.53 Weight Dosing Weight: 86 kg (04/17/25) Dosing Weight: 86 kg (04/16/25) Abdomen is soft. There is tenderness to the right upper quadrant and right mid quadrant extending laterally. No zoster rash. Bladder soft Lab Results 04/17 07:39 WBC: 6.1 Hgb: 12.1 Hct: 34.8 Platelet: 275 Neutrophil %: 60.2 Glucose Level: 107 Sodium Level: 139 Potassium Level: 3.9 BUN: 13.0 Creatinine Lvl (s): 0.88 04/16 23:59 WBC: 5.9 Hgb: 12.8 Hct: 36.9 Platelet: 295 Neutrophil %: 58.0 Glucose Level: 121 H Sodium Level: 138 Potassium Level: 3.6 BUN: 11.0 Creatinine Lvl (s): 0.91 EKG EC04/17/25: SINUS RHYTHM LEFT AXIS DEVIATION Electronic Signature: ELODIA RAGLAND DO 04/17/2025 01:19:38 Assessment/Plan 1. Nephrolithiasis status post ureteroscopic procedures x 6 followed in [facility]. Will to pass stone spontaneously status post what sounds like Boari flap or psoas hitch on the right side about 8 years ago for stricture with resultant reflux and need for low-dose nitrofurantoin suppression for recurrent UTI. Last stone procedure about 1-1/2 years ago on the right side A few tiny punctate calyceal stones are seen bilaterally on current CT 2. Atypical spasm-like right upper and mid and lower quadrant abdominal pain radiating from front to back. No evidence of ureteral calculi noted. Nephrosis and pain is likely not urinary. Urinalysis clear and white count and renal function normal Reviewed GI and general surgical notes. No evidence of urological etiology of patient's pain. Agreewith repeat CT scan to rule out progression of some type of intra-abdominal process, possibly colonic. Will follow. Problem List/Past Medical History Ongoing At risk for colon cancer Degenerative disc disease, cervical Fatigue GERD (gastroesophageal reflux disease) History of kidney disease Hot flashes due to menopause IBS (irritable bowel syndrome) Insomnia Knee pain, bilateral Long-term current use of proton pump inhibitor therapy Major depressive disorder, recurrent Mixed hyperlipidemia Neck pain Pes anserinus bursitis of right knee Plantar fasciitis Postmenopausal HRT (hormone replacement therapy) Renal calculi Right shoulder pain Rotator cuff tear, right Somatic dysfunction of cervical region Somatic dysfunction of lower extremity Somatic dysfunction of lumbar region Somatic dysfunction of pelvic region Somatic dysfunction of rib region Somatic dysfunction of sacral region Somatic dysfunction of thoracic region Strain of muscle of multiple sites Trochanteric bursitis, left hip Historical Lumbago of lumbar region with sciatica Spasm of thoracic back muscle Suspected COVID-19 virus infection UTI (urinary tract infection) Procedure/Surgical History Rotator cuff tear: 01/12/25 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 Ureter Kidney Discectomy Elbow section H/O: tubal ligation Dilation and curettage of uterus Ovarian cystectomy Medications Inpatient Dextrose 50% IV Push, 25 gram(s)= 50 mL, IV Push, AsDirected, PRN Dulcolax Laxative, 10 mg= 1 supp, Rectal, qDay, PRN DULoxetine, 30 mg= 1 cap(s), Oral, qDay DuoNeb, 3 mL, Inhalation, q4hRT, PRN Effexor XR, 37.5 mg= 1 cap(s), Oral, qDay estradiol 2 mg oral tablet, 2 mg= 1 tab(s), Oral, qDay guaiFENesin, 200 mg= 10 mL, Oral, q4h, PRN HumaLOG 100 units/mL subcutaneous solution, Give 0-10 units/dose, Subcutaneous, TIDAC Lovenox, 40 mg= 0.4 mL, Subcutaneous, qDay Macrobid, 100 mg= 1 cap(s), Oral, qHS medroxyPROGESTERone 2.5 mg oral tablet, 5 mg= 2 tab(s), Oral, qDay melatonin, 3 mg= 1 tab(s), Oral, qHS, PRN Miralax Powder Packet, 17 gram(s)= 15 mL, Oral, qDay, PRN Miralax Powder Packet, 17 gram(s)= 15 mL, Oral, qDay morphine, 4 mg= 1 mL, IV Push, q3h, PRN Brewer 325- 5 mg oral tablet, 1 tab(s), Oral, q4h, PRN NS 1,000 mL, 1000 mL, Intravenous omeprazole, 20 mg= 1 cap(s), Oral, qDay prochlorperazine, 5 mg= 1 mL, IV Push, q6h, PRN traZODone, 200 mg= 2 tab(s), Oral, qHS Tylenol, 650 mg= 2 tab(s), Oral, q4h, PRN Tylenol, 650 mg= 2 tab(s), Oral, q4h, PRN Zofran, 4 mg= 2 mL, IV Push, q4h, PRN Home buPROPion 75 mg oral tablet, 75 mg= 1 tab(s), Oral, Daily, Not taking dicyclomine 10 mg oral capsule, 10 mg= 1 cap(s), Oral, QID, Not taking dicyclomine 10 mg oral capsule, 10 mg= 1 cap(s), Oral, QID, Not taking DULoxetine 30 mg oral delayed release capsule, 30 mg= 1 cap(s), Oral, qDay, 1 refills estradiol 1 mg oral tablet, 2 mg= 2 tab(s), Oral, qDay, 3 refills gabapentin 600 mg oral tablet, Not taking medroxyPROGESTERone 5 mg oral tablet, 5 mg= 1 tab(s), Oral, Daily, 1 refills medroxyPROGESTERone 5 mg oral tablet, See Instructions, 3 refills MetFORMIN (Eqv-Glucophage XR) 500 mg oral tablet, EXTENDED RELEASE, 500 mg= 1 tab(s), Oral, BID, 1 refills, Not taking naltrexone 50 mg oral tablet, See Instructions, Not taking nitrofurantoin macrocrystals 100 mg oral capsule Brewer 325- 5 mg oral tablet, 1 tab(s), Oral, q6h, PRN omeprazole 20 mg oral delayed release capsule, 20 mg= 1 cap(s), Oral, qDay ondansetron 4 mg oral tablet, disintegrating, 4 mg= 1 tab(s), Oral, q6h, PRN prednisone 10mg tab (TAPER), Taper 55-41-84-10-5 mg, Oral, Daily, Not taking Probiotic, 1 capsule, Oral, Daily, Not taking scopolamine 1 mg/72 hr transdermal film, extended release, 1 patch(es), Topical, q72h, PRN, Not taking Testosterone (Eqv-AndroGel Packets) 20.25 mg/packet (1.62%) transdermal gel, 1 packet(s), Transdermal, qAM, 1 refills, Not taking traZODone 100 mg oral tablet, 200 mg= 2 tab(s), Oral, qHS turmeric 500 mg oral capsule, See Instructions venlafaxine 37.5 mg oral capsule, extended release, 37.5 mg= 1 cap(s), Oral, qDay Allergies Demerol HCl Rash morphine Rash Social History Smoking Status - 02/25/2018 Never smoker Alcohol - Denies Alcohol Use, 11/27/2017 Use: Current. Frequency: 1-2 times per week., 03/21/2025 Home/Environment Living situation: Home with assistance. Domestic Concerns: None. Primary Quality Supervisor: Self. Professional Skilled Services or Special Community Resources None. Marital Status: Unmarried., 02/24/2024 Nutrition/Health Type of diet: Regular. Caffeine intake amount: None. Appetite Good. Eating Difficulties None., 02/11/2024 Substance Abuse - Denies Substance Abuse, 11/27/2017 Use: Never., 06/02/2019 Tobacco - Denies Tobacco Use, 04/08/2020 Tobacco Use: Never (less than 100 in lifetime)., 06/02/2019 Family History Asthma: Daughter. Colon cancer: Mother. Diabetes: Father. Diabetes mellitus: Father. Stroke: Father. Health Status Family Member(s) Immunizations hepatitis A adult vaccine: 0 unknown unit (06/03/10) SARS-CoV-2 mRNA (tozinameran) vaccine: 0.3 unknown unit (10/04/21) SARS-CoV-2 mRNA (tozinameran) vaccine: 0.3 unknown unit (09/05/21) tetanus/diphtheria/pertussMUL.[id number]: 0 unknown unit (06/03/10) Digitally Signed by UCHE BRO MD on 04/17/2025 03:10 PM [id number] Evaluation + Plan noteExtracted from: Title:Clinical Document Author:PEG SOUZA MD Date:04/17/25 [facility] Medicine Hospitalist History and Physical Date of Admission: patient is being admitted on April 17, 2025 Chief complaint: abdominal pain History of present illness: History is taken from talking with emergency room physician Dr. Melvin as well as talking with the patient. Patient has a past medical history of Gerd, anxiety/depression, diabetes mellitus type II, urinary tract infections, kidney stones, irritable bowel syndrome, chronic back pain, chronic right shoulder pain. Patient was last discharged from here in 2019 when the patient was here for a headache. Patient reports having a five day history of severe abdominal pain. She reports that the pain is located around the right front lower rib area and radiates down the right side of her entire abdomen. She denies fevers, chills or night sweats. She describes the pain as a stabbing pain. Denies any trauma to the area. Denies chest pain or shortness of breath. Denies a cough. Has had two episodes of nausea and vomiting. Denies diarrhea. Per the patient she has never had anything like this before. Since presenting to the emergency room the patient has been afebrile, hemodynamically stable, 96% room air. The following labs and imaging were personally reviewed CBC within normal limits D dimer less than 200 urinalysis not concerning for infection CMP within normal limits lipase 32 lactic acid 1.8 high-sensitivity troponin less than three CT abdomen and pelvis with contrast did not show any concerning finding abdominal ultrasound did not show gallstones. Gallbladder wall is at the upper limits of normal., Bile duct is mildly dilated measuring 8 mm. Nonobstructing right renal calculus. EKG personally reviewed and interpreted showed sinus rhythm Emergency room the patient was given Dilaudid, Toradol and Zofran. Past medical history: TIA (transient ischemic attack) At risk for colon cancer Degenerative disc disease, cervical Fatigue GERD (gastroesophageal reflux disease) History of kidney disease Hot flashes due to menopause IBS (irritable bowel syndrome) Insomnia Knee pain, bilateral Long-term current use of proton pump inhibitor therapy Major depressive disorder, recurrent Mixed hyperlipidemia Neck pain Pes anserinus bursitis of right knee Plantar fasciitis Postmenopausal HRT (hormone replacement therapy) Renal calculi Right shoulder pain Rotator cuff tear, right Somatic dysfunction of cervical region Somatic dysfunction of lower extremity Somatic dysfunction of lumbar region Somatic dysfunction of pelvic region Somatic dysfunction of rib region Somatic dysfunction of sacral region Somatic dysfunction of thoracic region Strain of muscle of multiple sites Trochanteric bursitis, left hip Rotator cuff tear: 01/12/25 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 Ureter Kidney Discectomy Elbow section H/O: tubal ligation Dilation and curettage of uterus Ovarian cystectomy Family history: Father: Diabetes; Diabetes mellitus; Stroke Mother: Colon cancer Daughter: Asthma Social history: Denies smoking cigarettes or alcohol consumption Medications: Home Medications (21) Active, medications were not verified by pharmacy at the time of this dictation buPROPion 75 mg oral tablet 75 mg = 1 tab(s), Oral, Daily dicyclomine 10 mg oral capsule 10 mg = 1 cap(s), Oral, QID dicyclomine 10 mg oral capsule 10 mg = 1 cap(s), Oral, QID DULoxetine 30 mg oral delayed release capsule 30 mg = 1 cap(s), Oral, qDay estradiol 1 mg oral tablet 2 mg = 2 tab(s), Oral, qDay gabapentin 600 mg oral tablet medroxyPROGESTERone 5 mg oral tablet 5 mg = 1 tab(s), Oral, Daily medroxyPROGESTERone 5 mg oral tablet See Instructions MetFORMIN (Eqv-Glucophage XR) 500 mg oral tablet, EXTENDED RELEASE 500 mg = 1 tab(s), Oral, BID naltrexone 50 mg oral tablet See Instructions nitrofurantoin macrocrystals 100 mg oral capsule Brewer 325- 5 mg oral tablet 1 tab(s), PRN, Oral, q6h omeprazole 20 mg oral delayed release capsule 20 mg = 1 cap(s), Oral, qDay ondansetron 4 mg oral tablet, disintegrating 4 mg = 1 tab(s), PRN, Oral, q6h prednisone 10mg tab (TAPER) Taper 60-13-87-10-5 mg, Oral, Daily Probiotic 1 capsule, Oral, Daily scopolamine 1 mg/72 hr transdermal film, extended release 1 patch(es), PRN, Topical, q72h Testosterone (Eqv-AndroGel Packets) 20.25 mg/packet (1.62%) transdermal gel 1 packet(s), Transdermal, qAM traZODone 100 mg oral tablet 200 mg = 2 tab(s), Oral, qHS turmeric 500 mg oral capsule See Instructions venlafaxine 37.5 mg oral capsule, extended release 37.5 mg = 1 cap(s), Oral, qDay Allergies: Demerol HCl (Rash) morphine (Rash) Review of systems: See HPI for pertinent positives and negatives. All other review of systems have been reviewed and they are negative. Vitals Signs(Last 24 hrs)__Last Charted Minimum Maximum Temp36.7(APR 16:26)36.7(APR 16:)36.7(APR 16:) [id number](APR 17 03:56)106(APR 17 01:00)120(APR 17 03:56) DBP63(APR 17 03:56)63(APR 17 03:56)77(APR 16 23:26) Physical examination: HEENT: No Pallor, No Icterus Cardiac: RRR, No murmur Lungs: CTA, good air entry Abdomen: Soft, complaining of pain to palpation of the whole right side of her abdomen Musculoskeletal: No joint pains or swelling Extremities: No edema, good pulses Neurological: Alert, no deficits Skin: No rash, no nodules Labs: WBC: 5.9 10^3/mcL (04/16/25 23:59:00) RBC: 4.2 10^6/mcL (04/16/25 23:59:00) Hgb: 12.8 G/dL (04/16/25 23:59:00) Hct: 36.9 % (04/16/25 23:59:00) MCV: 87.7 fL (04/16/25 23:59:00) MCH: 30.4 pg (04/16/25 23:59:00) MCHC: 34.6 G/dL (04/16/25 23:59:00) RDW: 13.8 % (04/16/25 23:59:00) Platelet: 295 10^3/mcL (04/16/25 23:59:00) MPV: 9.7 fL (04/16/25 23:59:00) Monocyte Distribution Width: 19.98 (04/16/25 23:59:00) Neutrophil %: 58 % (04/16/25 23:59:00) Lymphocyte %: 30.4 % (04/16/25 23:59:00) Monocyte %: 7 % (04/16/25 23:59:00) Eosinophil %: 3.8 % (04/16/25 23:59:00) Basophil %: 0.8 % (04/16/25 23:59:00) Neutrophil, Absolute: 3.4 10^3/mcL (04/16/25 23:59:00) Lymphocyte, Absolute: 1.8 10^3/mcL (04/16/25 23:59:00) Monocyte, Absolute: 0.4 10^3/mcL (04/16/25 23:59:00) Eosinophil, Absolute: 0.2 10^3/mcL (04/16/25 23:59:00) Basophil, Absolute: 0 10^3/mcL (04/16/25 23:59:00) D-Dimer HS: <200 (04/16/25 23:59:00) UA Specimen Type: Clean Catch (04/17/25 00:10:00) UA Color: Yellow (04/17/25 00:10:00) UA Appear: Clear (04/17/25 00:10:00) UA Spec Grav: 1.020 (04/17/25 00:10:00) UA Glucose: Negative. (04/17/25 00:10:00) UA Bili: Negative. (04/17/25 00:10:00) UA Ketones: Negative.1 (04/17/25 00:10:00) UA Blood: Negative. (04/17/25 00:10:00) UA pH: 5.5 (04/17/25 00:10:00) UA Protein: Negative.1 (04/17/25 00:10:00) UA Urobilinogen: 0.2 (04/17/25 00:10:00) UA Nitrite: Negative. (04/17/25 00:10:00) UA Leuk Est: Negative. (04/17/25 00:10:00) Glucose Level: 121 mg/dL High (04/16/25 23:59:00) Sodium Level: 138 mEq/L (04/16/25 23:59:00) Potassium Level: 3.6 mEq/L (04/16/25 23:59:00) Chloride: 103 mEq/L (04/16/25 23:59:00) CO2: 24 mEq/L (04/16/25 23:59:00) Electrolyte Balance: 11 mEq/L (04/16/25 23:59:00) BUN: 11 mg/dL (04/16/25 23:59:00) Creatinine Lvl (s): 0.91 mg/dL (04/16/25 23:59:00) Estimated Glomerular Filtration Rate: 76 ml/min/1.73sqm (04/16/25 23:59:00) BUN/Creatinine Ratio: 12.1 ratio (04/16/25 23:59:00) Calcium Lvl: 9.5 mg/dL (04/16/25 23:59:00) Total Protein: 6.6 G/dL (04/16/25 23:59:00) Albumin Level: 3.3 G/dL (04/16/25 23:59:00) Globulin: 3.3 G/dL (04/16/25 23:59:00) A/G Ratio: 1 ratio (04/16/25 23:59:00) Bili Total: <0.20 (04/16/25 23:59:00) Alk Phos: 62 U/L (04/16/25 23:59:00) AST/SGOT: 20 U/L (04/16/25 23:59:00) ALT/SGPT: 16 U/L (04/16/25 23:59:00) Lipase Level: 32 U/L (04/16/25 23:59:00) Lactic Acid Lvl: 1.8 mmol/L (04/16/25 23:59:00) High Sensitivity Troponin I: <3 (04/16/25 23:59:00) Urinalysis UA Specimen Type: Clean Catch (04/17/25 00:10:00) UA Color: Yellow (04/17/25 00:10:00) UA Appear: Clear (04/17/25 00:10:00) UA Spec Grav: 1.020 (04/17/25 00:10:00) UA Glucose: Negative. (04/17/25 00:10:00) UA Bili: Negative. (04/17/25 00:10:00) UA Ketones: Negative.1 (04/17/25 00:10:00) UA Blood: Negative. (04/17/25 00:10:00) UA pH: 5.5 (04/17/25 00:10:00) UA Protein: Negative.1 (04/17/25 00:10:00) UA Urobilinogen: 0.2 (04/17/25 00:10:00) UA Nitrite: Negative. (04/17/25 00:10:00) UA Leuk Est: Negative. (04/17/25 00:10:00) Assessment and plan: Patient presents on April 17, 2025 with a five day history of abdominal pain. Abdominal pain of unclear etiology. Symptomatic management. Does not appear to be infectious related. The patient has been afebrile and does not have a leukocytosis. CT abdomen and pelvis with contrast and abdominal ultrasound did not show any concerning finding. Will get repeat labs. Will give IV fluids. Will check an ESR and CRP. Most likely somatic pain versus psychogenic. Gerd. Continue home medications Anxiety/depression. Continue medications Diabetes mellitus type II. Continue home medications Chronic cervical spine pain and chronic right shoulder pain. Follows with orthopedic surgery Prophylaxis Lovenox Code status full code Addendum by PEG SOUZA MD on April 17, 2025 6:42 EDT medications will need reconciled once th ey are verified Future Scheduled Tests Laboratory* TSH with Reflex to FT4 03/02/25 * Vitamin B12 Level 03/02/25 * Complete Blood Count 03/02/25 * Lipid Profile 03/02/25 * Complete Metabolic Panel 03/02/25 Radiology* MA Mammo Diagnostic Left w/ Dylan 04/30/25 * US Breast Left Complete 04/30/25 [facility] 06-30-2025 Gastroenterology Consult note Date of Service 04/17/2025 Reason for Consultation Abdominal pain History of Present Illness Mrs. Goode is a 54-year-old white female who we are not familiar with who does carry chronic GI complaints of IBS constipation dominant and GERD. Patient has been experiencing severe onset of acute abdominal pain since last Thursday with no apparent provocative factors. There was no known trigger. The pain is described as intense sharp and stabbing affecting the right upper middle and lower quadrant. There is been no apparent change in bowel pattern. Patient has understood Mining chronic constipation has been tested in the past with a confirmed sits marker study confirming moderate to severe constipation. She can typically go 7 to 10 days without a bowel movement if not longer. She has failed on multiple medical therapies but she cannot tell me exactly which ones other than MiraLAX and Linzess with certain. She has been endoscopically evaluated both upper and lower I do not have theresults of her reports but apparently no significant findings. She states that she always has hadGI issues including postprandial abdominal discomfort for years which she states that this is not e same. The pain that she is experiencing since last Thursday is new and different. Imaging and labs at this point been unyielding. She typically takes antispasmodic such as Bentyl for her IBS pain which has not been effective for this current pain. She is also not gotten any results from inpatient pain relief current opioid. There has been no signs of GI bleeding. There is some nausea and a decreased appetite but no vomiting. Does have chronic GERD mostly controlled. Review of Systems No reported weight loss No flulike symptoms fevers chills sweats myalgias As stated in HPI Physical Exam Vitals and Measurements T: 36.6 C (Oral) TMIN: 36.4 C (Oral) TMAX: 36.7 C (Oral) HR: 70 RR: 18 BP: 112/80 SpO2: 92% HT: 162.6 cm WT: 86.0 kg BMI: 32.53 Weight Dosing Weight: 86 kg (04/17/25) Dosing Weight: 86 kg (04/16/25) Patient is in some distress She cannot get comfortable she holds her right upper quadrant right-sided abdomen Skin is clear no rash no jaundice No extremity edema Eyes are nonicteric, Koza be moist neck supple Lungs are clear Heart regular rhythm no loud murmur Abdomen obese moderately distended soft tenderness right-sided Positive guarding no rebound Rectal deferred Lab Results 04/17 07:39 WBC: 6.1 Hgb: 12.1 Hct: 34.8 Platelet: 275 Neutrophil %: 60.2 Glucose Level: 107 Sodium Level: 139 Potassium Level: 3.9 BUN: 13.0 Creatinine Lvl (s): 0.88 04/16 23:59 WBC: 5.9 Hgb: 12.8 Hct: 36.9 Platelet: 295 Neutrophil %: 58.0 Glucose Level: 121 H Sodium Level: 138 Potassium Level: 3.6 BUN: 11.0 Creatinine Lvl (s): 0.91 Imaging Results and Diagnostics (04/15/2025 16:[address] Abd/Pelvis w/ IV Contrast Only) FINDINGS: The heart is normal in size. No pericardial thickening. Trace amount of pericardial recess fluid. Atelectasis and scarring noted within the lung bases. The aorta is nonaneurysmal with minimal atherosclerosis. No adenopathy within the abdomen or pelvis. Stable 2 cm left hepatic lobe cyst. The gallbladder, spleen, pancreas, and bilateral adrenal glands are unremarkable. Kidneys enhance symmetrically. Bilateral nephrolithiasis. No hydronephrosis. Stable left midpole simple renal cyst. Bladder is unremarkable. Uterus is unremarkable. Suspected left fallopian tube closure device. No adnexal lesion. No pneumoperitoneum or free fluid. The large and small bowel are normal in caliber. Normal appendix. No inflammatory changes of the GI tract. Duodenal diverticulum noted. No acute osseous abnormality. IMPRESSION: No acute finding. Bilateral nonobstructive nephrolithiasis. I have personally reviewed the images of this examination and agree with the resident's findings and interpretation. [1] (04/17/2025 02:49 EDT US Abdomen Limited) IMPRESSION: 1. No gallstones. Gallbladder wall is at the upper limits of normal. 2. Common bile duct is mildly dilated measuring 8 mm. 3. Nonobstructing right renal calculus. [2] EKG EC04/17/25: SINUS RHYTHM LEFT AXIS DEVIATION Electro Assessment/Plan Abdominal pain Acute onset of right-sided pain Patient with history of chronic abdominal pain and IBS constipation dominant but full workup in thepast by other GI groups Patient states that the pain currently is different than her chronic pain CT abdomen and ultrasound unyielding Labs not helpful Surgical team is already seen By her description this is likely colonic in origin Less likely small bowel Not consistent with biliary Plan Consider repeat abdomen with oral contrast Doubt vascular component but consider CTA to better define and CTE to look at the small bowel Continue supportive measures Further following GERD (gastroesophageal reflux disease) Problem List/Past Medical History Ongoing At risk for colon cancer Degenerative disc disease, cervical Fatigue GERD (gastroesophageal reflux disease) History of kidney disease Hot flashes due to menopause IBS (irritable bowel syndrome) Insomnia Knee pain, bilateral Long-term current use of proton pump inhibitor therapy Major depressive disorder, recurrent Mixed hyperlipidemia Neck pain Pes anserinus bursitis of right knee Plantar fasciitis Postmenopausal HRT (hormone replacement therapy) Renal calculi Right shoulder pain Rotator cuff tear, right Somatic dysfunction of cervical region Somatic dysfunction of lower extremity Somatic dysfunction of lumbar region Somatic dysfunction of pelvic region Somatic dysfunction of rib region Somatic dysfunction of sacral region Somatic dysfunction of thoracic region Strain of muscle of multiple sites Trochanteric bursitis, left hip Historical Lumbago of lumbar region with sciatica Spasm of thoracic back muscle Suspected COVID-19 virus infection UTI (urinary tract infection) Procedure/Surgical History Rotator cuff tear: 01/12/25 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 Ureter Kidney Discectomy Elbow section H/O: tubal ligation Dilation and curettage of uterus Ovarian cystectomy Medications Inpatient Dextrose 50% IV Push, 25 gram(s)= 50 mL, IV Push, AsDirected, PRN Dulcolax Laxative, 10 mg= 1 supp, Rectal, qDay, PRN DULoxetine, 30 mg= 1 cap(s), Oral, qDay DuoNeb, 3 mL, Inhalation, q4hRT, PRN Effexor XR, 37.5 mg= 1 cap(s), Oral, qDay estradiol 2 mg oral tablet, 2 mg= 1 tab(s), Oral, qDay guaiFENesin, 200 mg= 10 mL, Oral, q4h, PRN HumaLOG 100 units/mL subcutaneous solution, Give 0-10 units/dose, Subcutaneous, TIDAC Lovenox, 40 mg= 0.4 mL, Subcutaneous, qDay Macrobid, 100 mg= 1 cap(s), Oral, qHS medroxyPROGESTERone 2.5 mg oral tablet, 5 mg= 2 tab(s), Oral, qDay melatonin, 3 mg= 1 tab(s), Oral, qHS, PRN Miralax Powder Packet, 17 gram(s)= 15 mL, Oral, qDay, PRN Miralax Powder Packet, 17 gram(s)= 15 mL, Oral, qDay morphine, 4 mg= 1 mL, IV Push, q3h, PRN Brewer 325- 5 mg oral tablet, 1 tab(s), Oral, q4h, PRN NS 1,000 mL, 1000 mL, Intravenous omeprazole, 20 mg= 1 cap(s), Oral, qDay prochlorperazine, 5 mg= 1 mL, IV Push, q6h, PRN traZODone, 200 mg= 2 tab(s), Oral, qHS Tylenol, 650 mg= 2 tab(s), Oral, q4h, PRN Tylenol, 650 mg= 2 tab(s), Oral, q4h, PRN Zofran, 4 mg= 2 mL, IV Push, q4h, PRN Home buPROPion 75 mg oral tablet, 75 mg= 1 tab(s), Oral, Daily, Not taking dicyclomine 10 mg oral capsule, 10 mg= 1 cap(s), Oral, QID, Not taking dicyclomine 10 mg oral capsule, 10 mg= 1 cap(s), Oral, QID, Not taking DULoxetine 30 mg oral delayed release capsule, 30 mg= 1 cap(s), Oral, qDay, 1 refills estradiol 1 mg oral tablet, 2 mg= 2 tab(s), Oral, qDay, 3 refills gabapentin 600 mg oral tablet, Not taking medroxyPROGESTERone 5 mg oral tablet, 5 mg= 1 tab(s), Oral, Daily, 1 refills medroxyPROGESTERone 5 mg oral tablet, See Instructions, 3 refills MetFORMIN (Eqv-Glucophage XR) 500 mg oral tablet, EXTENDED RELEASE, 500 mg= 1 tab(s), Oral, BID, 1 refills, Not taking naltrexone 50 mg oral tablet, See Instructions, Not taking nitrofurantoin macrocrystals 100 mg oral capsule Brewer 325- 5 mg oral tablet, 1 tab(s), Oral, q6h, PRN omeprazole 20 mg oral delayed release capsule, 20 mg= 1 cap(s), Oral, qDay ondansetron 4 mg oral tablet, disintegrating, 4 mg= 1 tab(s), Oral, q6h, PRN prednisone 10mg tab (TAPER), Taper 01-47-35-10-5 mg, Oral, Daily, Not taking Probiotic, 1 capsule, Oral, Daily, Not taking scopolamine 1 mg/72 hr transdermal film, extended release, 1 patch(es), Topical, q72h, PRN, Not taking Testosterone (Eqv-AndroGel Packets) 20.25 mg/packet (1.62%) transdermal gel, 1 packet(s), Transdermal, qAM, 1 refills, Not taking traZODone 100 mg oral tablet, 200 mg= 2 tab(s), Oral, qHS turmeric 500 mg oral capsule, See Instructions venlafaxine 37.5 mg oral capsule, extended release, 37.5 mg= 1 cap(s), Oral, qDay Allergies Demerol HCl Rash morphine Rash Social History Smoking Status - 02/25/2018 Never smoker Alcohol - Denies Alcohol Use, 11/27/2017 Use: Current. Frequency: 1-2 times per week., 03/21/2025 Home/Environment Living situation: Home with assistance. Domestic Concerns: None. Primary Quality Supervisor: Self. Professional Skilled Services or Special Community Resources None. Marital Status: Unmarried., 02/24/2024 Nutrition/Health Type of diet: Regular. Caffeine intake amount: None. Appetite Good. Eating Difficulties None., 02/11/2024 Substance Abuse - Denies Substance Abuse, 11/27/2017 Use: Never., 06/02/2019 Tobacco - Denies Tobacco Use, 04/08/2020 Tobacco Use: Never (less than 100 in lifetime)., 06/02/2019 Family History Asthma: Daughter. Colon cancer: Mother. Diabetes: Father. Diabetes mellitus: Father. Stroke: Father. Health Status Family Member(s) Immunizations hepatitis A adult vaccine: 0 unknown unit (06/03/10) SARS-CoV-2 mRNA (tozinameran) vaccine: 0.3 unknown unit (10/04/21) SARS-CoV-2 mRNA (tozinameran) vaccine: 0.3 unknown unit (09/05/21) tetanus/diphtheria/pertussMUL.ORD![id number]: 0 unknown unit (06/03/10) [1] CT Abd/Pelvis w/ IV Contrast Only; ILIR BORRERO MD 04/15/2025 16:36 EDT [2] US Abdomen Limited; MARQUIS WESLEY MD 04/17/2025 02:49 EDT Digitally Signed by JOSE LARIOS PA-C on 04/17/2025 01:55 PM [id number] Consult note Date of Service 04/17/2025 Reason for Consultation Intractable right upper quadrant and right lower quadrant pain Referring Physician Hospitalist History of Present Illness This is a split shared visit between myself and Dr. Woods. This is a 54-year-old female with past medical history of kidney stones, GERD, anxiety/depression, type 2 diabetes mellitus, UTI, irritable bowel syndrome, chronic back and right shoulder pain. Patient presented to the ER and was admitted yesterday with complaints of intractable right upper quadrant to right lower quadrant abdominal pain. She states her pain began this past Thursday and progressively worsened over the last several days. She does have a history of kidney stones x 6 and did require surgery per patient report. Due to her ongoing pain she presented to the ER for further evaluation. During her workup patient had a CT scan of her abdomen pelvis completed that showed no acute findings with bilateral nonobstructive kidney stones. She was found to have a stable left hepatic lobe cyst with unremarkable gallbladder spleen pancreas and adrenal glands. She then had an ultrasound of her abdomen that showed no gallstones with a common bile duct measuring 8 mm, no findings of acute cholecystitis. She was found to have a normal white count of 5.9 with a stable hemoglobin. Total bilirubin and LFTs all within normal limits. Due to these findings and ongoing pain she has been admitted under medical service. General surgery and gastroenterology have been consulted for further evaluation. On exam this morning she continues to have significant pain to her right abdomen, tearful on exam. Denies any nausea or vomiting. Denies any other complaints other than significant pain to her right abdomen. Review of Systems All pertinent positives and negatives are stated in the HPI above. All other review of systems are considered negative unless stated otherwise. Physical Exam Vitals and Measurements T: 36.6 C (Oral) TMIN: 36.4 C (Oral) TMAX: 36.7 C (Oral) HR: 70 RR: 18 BP: 112/80 SpO2: 92% HT: 162.6 cm WT: 86.0 kg BMI: 32.53 Weight Dosing Weight: 86 kg (04/17/25) Dosing Weight: 86 kg (04/16/25) General -alert and oriented x4, answers questions appropriately. In no acute distress. HEENT -normocephalic. Cardiovascular -S1-S2, regular rate and rhythm. Respiratory -easy unlabored respirations. Chest rise symmetrical. Abdomen/GI -soft, tender to right abdomen, bowel sounds present. Nondistended. Musculoskeletal -MONROY x4. Psychiatric -calm and cooperative. Skin -normal for ethnicity. Lab Results 04/17 07:39 WBC: 6.1 Hgb: 12.1 Hct: 34.8 Platelet: 275 Neutrophil %: 60.2 Glucose Level: 107 Sodium Level: 139 Potassium Level: 3.9 BUN: 13.0 Creatinine Lvl (s): 0.88 04/16 23:59 WBC: 5.9 Hgb: 12.8 Hct: 36.9 Platelet: 295 Neutrophil %: 58.0 Glucose Level: 121 H Sodium Level: 138 Potassium Level: 3.6 BUN: 11.0 Creatinine Lvl (s): 0.91 Imaging Results and Diagnostics US Abdomen Limited Result Date: April 17, 2025 Verified By: MARYJANE OLIVEIRA, MARQUIS Nam CLINICAL STATEMENT: IMPRESSION: 1. No gallstones. Gallbladder wall is at the upper limits of normal.2. Common bile ductis mildly dilated measuring 8 mm.3. Nonobstructing right renal calculus. EKG EC04/17/25: SINUS RHYTHM LEFT AXIS DEVIATION Electronic Signature: OBIESABINETHA HINSON 04/17/2025 01:19:38 Assessment/Plan Abdominal pain GERD (gastroesophageal reflux disease) 54-year-old female who presented to the ER yesterday with intractable right- sided abdominal pain. She has been admitted under medical service with consultation to general surgery for further evaluation and care. Admitting imaging reviewed via CT scan and ultrasound. No acute findings noted. She was found to have bilateral nonobstructive kidney stones and does have a significant history of 6 kidney stones in the past. White count has remained normal. Hemoglobin. Electrolytes stable. Total bilirubin and LFTsall within normal limits. Plan: Etiology of current pain unknown. She does not appear to have any acute findings from her gallbladder or colon. -From a general surgery standpoint patient may benefit from urology evaluation given her history ofkidney stones that has required intervention in the past. - No plans for intervention from a general surgery standpoint. Case discussed with Dr. Woods, see addendum to follow. Problem List/Past Medical History Ongoing At risk for colon cancer Degenerative disc disease, cervical Fatigue GERD (gastroesophageal reflux disease) History of kidney disease Hot flashes due to menopause IBS (irritable bowel syndrome) Insomnia Knee pain, bilateral Long-term current use of proton pump inhibitor therapy Major depressive disorder, recurrent Mixed hyperlipidemia Neck pain Pes anserinus bursitis of right knee Plantar fasciitis Postmenopausal HRT (hormone replacement therapy) Renal calculi Right shoulder pain Rotator cuff tear, right Somatic dysfunction of cervical region Somatic dysfunction of lower extremity Somatic dysfunction of lumbar region Somatic dysfunction of pelvic region Somatic dysfunction of rib region Somatic dysfunction of sacral region Somatic dysfunction of thoracic region Strain of muscle of multiple sites Trochanteric bursitis, left hip Historical Lumbago of lumbar region with sciatica Spasm of thoracic back muscle Suspected COVID-19 virus infection UTI (urinary tract infection) Procedure/Surgical History Rotator cuff tear: 01/12/25 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 Ureter Kidney Discectomy Elbow section H/O: tubal ligation Dilation and curettage of uterus Ovarian cystectomy Medications Inpatient Dextrose 50% IV Push, 25 gram(s)= 50 mL, IV Push, AsDirected, PRN Dilaudid, 0.5 mg= 0.5 mL, IV Push, q4h, PRN Dulcolax Laxative, 10 mg= 1 supp, Rectal, qDay, PRN DULoxetine, 30 mg= 1 cap(s), Oral, qDay DuoNeb, 3 mL, Inhalation, q4hRT, PRN Effexor XR, 37.5 mg= 1 cap(s), Oral, qDay estradiol 2 mg oral tablet, 2 mg= 1 tab(s), Oral, qDay guaiFENesin, 200 mg= 10 mL, Oral, q4h, PRN HumaLOG 100 units/mL subcutaneous solution, Give 0-10 units/dose, Subcutaneous, TIDAC Lovenox, 40 mg= 0.4 mL, Subcutaneous, qDay Macrobid, 100 mg= 1 cap(s), Oral, qHS medroxyPROGESTERone 2.5 mg oral tablet, 5 mg= 2 tab(s), Oral, qDay melatonin, 3 mg= 1 tab(s), Oral, qHS, PRN Miralax Powder Packet, 17 gram(s)= 15 mL, Oral, qDay, PRN Miralax Powder Packet, 17 gram(s)= 15 mL, Oral, qDay Brewer 325- 5 mg oral tablet, 1 tab(s), Oral, q4h, PRN NS 1,000 mL, 1000 mL, Intravenous omeprazole, 20 mg= 1 cap(s), Oral, qDay prochlorperazine, 5 mg= 1 mL, IV Push, q6h, PRN traZODone, 200 mg= 2 tab(s), Oral, qHS Tylenol, 650 mg= 2 tab(s), Oral, q4h, PRN Tylenol, 650 mg= 2 tab(s), Oral, q4h, PRN Ultram, 50 mg= 1 tab(s), Oral, q6h, PRN Zofran, 4 mg= 2 mL, IV Push, q4h, PRN Home buPROPion 75 mg oral tablet, 75 mg= 1 tab(s), Oral, Daily, Not taking dicyclomine 10 mg oral capsule, 10 mg= 1 cap(s), Oral, QID, Not taking dicyclomine 10 mg oral capsule, 10 mg= 1 cap(s), Oral, QID, Not taking DULoxetine 30 mg oral delayed release capsule, 30 mg= 1 cap(s), Oral, qDay, 1 refills estradiol 1 mg oral tablet, 2 mg= 2 tab(s), Oral, qDay, 3 refills gabapentin 600 mg oral tablet, Not taking medroxyPROGESTERone 5 mg oral tablet, 5 mg= 1 tab(s), Oral, Daily, 1 refills medroxyPROGESTERone 5 mg oral tablet, See Instructions, 3 refills MetFORMIN (Eqv-Glucophage XR) 500 mg oral tablet, EXTENDED RELEASE, 500 mg= 1 tab(s), Oral, BID, 1 refills, Not taking naltrexone 50 mg oral tablet, See Instructions, Not taking nitrofurantoin macrocrystals 100 mg oral capsule Brewer 325- 5 mg oral tablet, 1 tab(s), Oral, q6h, PRN omeprazole 20 mg oral delayed release capsule, 20 mg= 1 cap(s), Oral, qDay ondansetron 4 mg oral tablet, disintegrating, 4 mg= 1 tab(s), Oral, q6h, PRN prednisone 10mg tab (TAPER), Taper 79-46-74-10-5 mg, Oral, Daily, Not taking Probiotic, 1 capsule, Oral, Daily, Not taking scopolamine 1 mg/72 hr transdermal film, extended release, 1 patch(es), Topical, q72h, PRN, Not taking Testosterone (Eqv-AndroGel Packets) 20.25 mg/packet (1.62%) transdermal gel, 1 packet(s), Transdermal, qAM, 1 refills, Not taking traZODone 100 mg oral tablet, 200 mg= 2 tab(s), Oral, qHS turmeric 500 mg oral capsule, See Instructions venlafaxine 37.5 mg oral capsule, extended release, 37.5 mg= 1 cap(s), Oral, qDay Allergies Demerol HCl Rash morphine Rash Social History Smoking Status - 02/25/2018 Never smoker Alcohol - Denies Alcohol Use, 11/27/2017 Use: Current. Frequency: 1-2 times per week., 03/21/2025 Home/Environment Living situation: Home with assistance. Domestic Concerns: None. Primary Quality Supervisor: Self. Professional Skilled Services or Special Community Resources None. Marital Status: Unmarried., 02/24/2024 Nutrition/Health Type of diet: Regular. Caffeine intake amount: None. Appetite Good. Eating Difficulties None., 02/11/2024 Substance Abuse - Denies Substance Abuse, 11/27/2017 Use: Never., 06/02/2019 Tobacco - Denies Tobacco Use, 04/08/2020 Tobacco Use: Never (less than 100 in lifetime)., 06/02/2019 Family History Asthma: Daughter. Colon cancer: Mother. Diabetes: Father. Diabetes mellitus: Father. Stroke: Father. Health Status Family Member(s) Immunizations hepatitis A adult vaccine: 0 unknown unit (06/03/10) SARS-CoV-2 mRNA (tozinameran) vaccine: 0.3 unknown unit (10/04/21) SARS-CoV-2 mRNA (tozinameran) vaccine: 0.3 unknown unit (09/05/21) tetanus/diphtheria/pertussMUL.ORD![id number]: 0 unknown unit (06/03/10) Digitally Signed by DAVID MARES on 04/17/2025 11:40 AM [id number] Surgery Consult note Date of Service 04/17/2025 Reason for Consultation Intractable right upper quadrant and right lower quadrant pain Referring Physician Hospitalist History of Present Illness This is a split shared visit between myself and Dr. Woods. This is a 54-year-old female with past medical history of kidney stones, GERD, anxiety/depression, type 2 diabetes mellitus, UTI, irritable bowel syndrome, chronic back and right shoulder pain. Patient presented to the ER and was admitted yesterday with complaints of intractable right upper quadrant to right lower quadrant abdominal pain. She states her pain began this past Thursday and progressively worsened over the last several days. She does have a history of kidney stones x 6 and did require surgery per patient report. Due to her ongoing pain she presented to the ER for further evaluation. During her workup patient had a CT scan of her abdomen pelvis completed that showed no acute findings with bilateral nonobstructive kidney stones. She was found to have a stable left hepatic lobe cyst with unremarkable gallbladder spleen pancreas and adrenal glands. She then had an ultrasound of her abdomen that showed no gallstones with a common bile duct measuring 8 mm, no findings of acute cholecystitis. She was found to have a normal white count of 5.9 with a stable hemoglobin. Total bilirubin and LFTs all within normal limits. Due to these findings and ongoing pain she has been admitted under medical service. General surgery and gastroenterology have been consulted for further evaluation. On exam this morning she continues to have significant pain to her right abdomen, tearful on exam. Denies any nausea or vomiting. Denies any other complaints other than significant pain to her right abdomen. Review of Systems All pertinent positives and negatives are stated in the HPI above. All other review of systems are considered negative unless stated otherwise. Physical Exam Vitals and Measurements T: 36.6 C (Oral) TMIN: 36.4 C (Oral) TMAX: 36.7 C (Oral) HR: 70 RR: 18 BP: 112/80 SpO2: 92% HT: 162.6 cm WT: 86.0 kg BMI: 32.53 Weight Dosing Weight: 86 kg (04/17/25) Dosing Weight: 86 kg (04/16/25) General -alert and oriented x4, answers questions appropriately. In no acute distress. HEENT -normocephalic. Cardiovascular -S1-S2, regular rate and rhythm. Respiratory -easy unlabored respirations. Chest rise symmetrical. Abdomen/GI -soft, tender to right abdomen, bowel sounds present. Nondistended. Musculoskeletal -MONROY x4. Psychiatric -calm and cooperative. Skin -normal for ethnicity. Lab Results 04/17 07:39 WBC: 6.1 Hgb: 12.1 Hct: 34.8 Platelet: 275 Neutrophil %: 60.2 Glucose Level: 107 Sodium Level: 139 Potassium Level: 3.9 BUN: 13.0 Creatinine Lvl (s): 0.88 04/16 23:59 WBC: 5.9 Hgb: 12.8 Hct: 36.9 Platelet: 295 Neutrophil %: 58.0 Glucose Level: 121 H Sodium Level: 138 Potassium Level: 3.6 BUN: 11.0 Creatinine Lvl (s): 0.91 Imaging Results and Diagnostics US Abdomen Limited Result Date: April 17, 2025 Verified By: MARYJANE OLIVEIRA, MARQUIS aNm CLINICAL STATEMENT: IMPRESSION: 1. No gallstones. Gallbladder wall is at the upper limits of normal.2. Common bile ductis mildly dilated measuring 8 mm.3. Nonobstructing right renal calculus. EKG EC04/17/25: SINUS RHYTHM LEFT AXIS DEVIATION Electronic Signature: ELODIA RAGLAND DO 04/17/2025 01:19:38 Assessment/Plan Abdominal pain GERD (gastroesophageal reflux disease) 54-year-old female who presented to the ER yesterday with intractable right- sided abdominal pain. She has been admitted under medical service with consultation to general surgery for further evaluation and care. Admitting imaging reviewed via CT scan and ultrasound. No acute findings noted. She was found to have bilateral nonobstructive kidney stones and does have a significant history of 6 kidney stones in the past. White count has remained normal. Hemoglobin. Electrolytes stable. Total bilirubin and LFTsall within normal limits. Plan: Etiology of current pain unknown. She does not appear to have any acute findings from her gallbladder or colon. -From a general surgery standpoint patient may benefit from urology evaluation given her history ofkidney stones that has required intervention in the past. - No plans for intervention from a general surgery standpoint. Case discussed with Dr. Woods, see addendum to follow. Problem List/Past Medical History Ongoing At risk for colon cancer Degenerative disc disease, cervical Fatigue GERD (gastroesophageal reflux disease) History of kidney disease Hot flashes due to menopause IBS (irritable bowel syndrome) Insomnia Knee pain, bilateral Long-term current use of proton pump inhibitor therapy Major depressive disorder, recurrent Mixed hyperlipidemia Neck pain Pes anserinus bursitis of right knee Plantar fasciitis Postmenopausal HRT (hormone replacement therapy) Renal calculi Right shoulder pain Rotator cuff tear, right Somatic dysfunction of cervical region Somatic dysfunction of lower extremity Somatic dysfunction of lumbar region Somatic dysfunction of pelvic region Somatic dysfunction of rib region Somatic dysfunction of sacral region Somatic dysfunction of thoracic region Strain of muscle of multiple sites Trochanteric bursitis, left hip Historical Lumbago of lumbar region with sciatica Spasm of thoracic back muscle Suspected COVID-19 virus infection UTI (urinary tract infection) Procedure/Surgical History Rotator cuff tear: 01/12/25 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 Ureter Kidney Discectomy Elbow section H/O: tubal ligation Dilation and curettage of uterus Ovarian cystectomy Medications Inpatient Dextrose 50% IV Push, 25 gram(s)= 50 mL, IV Push, AsDirected, PRN Dilaudid, 0.5 mg= 0.5 mL, IV Push, q4h, PRN Dulcolax Laxative, 10 mg= 1 supp, Rectal, qDay, PRN DULoxetine, 30 mg= 1 cap(s), Oral, qDay DuoNeb, 3 mL, Inhalation, q4hRT, PRN Effexor XR, 37.5 mg= 1 cap(s), Oral, qDay estradiol 2 mg oral tablet, 2 mg= 1 tab(s), Oral, qDay guaiFENesin, 200 mg= 10 mL, Oral, q4h, PRN HumaLOG 100 units/mL subcutaneous solution, Give 0-10 units/dose, Subcutaneous, TIDAC Lovenox, 40 mg= 0.4 mL, Subcutaneous, qDay Macrobid, 100 mg= 1 cap(s), Oral, qHS medroxyPROGESTERone 2.5 mg oral tablet, 5 mg= 2 tab(s), Oral, qDay melatonin, 3 mg= 1 tab(s), Oral, qHS, PRN Miralax Powder Packet, 17 gram(s)= 15 mL, Oral, qDay, PRN Miralax Powder Packet, 17 gram(s)= 15 mL, Oral, qDay Brewer 325- 5 mg oral tablet, 1 tab(s), Oral, q4h, PRN NS 1,000 mL, 1000 mL, Intravenous omeprazole, 20 mg= 1 cap(s), Oral, qDay prochlorperazine, 5 mg= 1 mL, IV Push, q6h, PRN traZODone, 200 mg= 2 tab(s), Oral, qHS Tylenol, 650 mg= 2 tab(s), Oral, q4h, PRN Tylenol, 650 mg= 2 tab(s), Oral, q4h, PRN Ultram, 50 mg= 1 tab(s), Oral, q6h, PRN Zofran, 4 mg= 2 mL, IV Push, q4h, PRN Home buPROPion 75 mg oral tablet, 75 mg= 1 tab(s), Oral, Daily, Not taking dicyclomine 10 mg oral capsule, 10 mg= 1 cap(s), Oral, QID, Not taking dicyclomine 10 mg oral capsule, 10 mg= 1 cap(s), Oral, QID, Not taking DULoxetine 30 mg oral delayed release capsule, 30 mg= 1 cap(s), Oral, qDay, 1 refills estradiol 1 mg oral tablet, 2 mg= 2 tab(s), Oral, qDay, 3 refills gabapentin 600 mg oral tablet, Not taking medroxyPROGESTERone 5 mg oral tablet, 5 mg= 1 tab(s), Oral, Daily, 1 refills medroxyPROGESTERone 5 mg oral tablet, See Instructions, 3 refills MetFORMIN (Eqv-Glucophage XR) 500 mg oral tablet, EXTENDED RELEASE, 500 mg= 1 tab(s), Oral, BID, 1 refills, Not taking naltrexone 50 mg oral tablet, See Instructions, Not taking nitrofurantoin macrocrystals 100 mg oral capsule Brewer 325- 5 mg oral tablet, 1 tab(s), Oral, q6h, PRN omeprazole 20 mg oral delayed release capsule, 20 mg= 1 cap(s), Oral, qDay ondansetron 4 mg oral tablet, disintegrating, 4 mg= 1 tab(s), Oral, q6h, PRN prednisone 10mg tab (TAPER), Taper 29-77-15-10-5 mg, Oral, Daily, Not taking Probiotic, 1 capsule, Oral, Daily, Not taking scopolamine 1 mg/72 hr transdermal film, extended release, 1 patch(es), Topical, q72h, PRN, Not taking Testosterone (Eqv-AndroGel Packets) 20.25 mg/packet (1.62%) transdermal gel, 1 packet(s), Transdermal, qAM, 1 refills, Not taking traZODone 100 mg oral tablet, 200 mg= 2 tab(s), Oral, qHS turmeric 500 mg oral capsule, See Instructions venlafaxine 37.5 mg oral capsule, extended release, 37.5 mg= 1 cap(s), Oral, qDay Allergies Demerol HCl Rash morphine Rash Social History Smoking Status - 02/25/2018 Never smoker Alcohol - Denies Alcohol Use, 11/27/2017 Use: Current. Frequency: 1-2 times per week., 03/21/2025 Home/Environment Living situation: Home with assistance. Domestic Concerns: None. Primary Quality Supervisor: Self. Professional Skilled Services or Special Community Resources None. Marital Status: Unmarried., 02/24/2024 Nutrition/Health Type of diet: Regular. Caffeine intake amount: None. Appetite Good. Eating Difficulties None., 02/11/2024 Substance Abuse - Denies Substance Abuse, 11/27/2017 Use: Never., 06/02/2019 Tobacco - Denies Tobacco Use, 04/08/2020 Tobacco Use: Never (less than 100 in lifetime)., 06/02/2019 Family History Asthma: Daughter. Colon cancer: Mother. Diabetes: Father. Diabetes mellitus: Father. Stroke: Father. Health Status Family Member(s) Immunizations hepatitis A adult vaccine: 0 unknown unit (06/03/10) SARS-CoV-2 mRNA (tozinameran) vaccine: 0.3 unknown unit (10/04/21) SARS-CoV-2 mRNA (tozinameran) vaccine: 0.3 unknown unit (09/05/21) tetanus/diphtheria/pertussMUL.ORD![id number]: 0 unknown unit (06/03/10) Digitally Signed by DAVID MARES on 04/17/2025 11:40 AM [id number] History and physical note [facility] Hospital[facility] History and Physical Date of Admission: patient is being admitted on April 17, 2025 Chief complaint: abdominal pain History of present illness: History is taken from talking with emergency room physician Dr. Melvin as well as talking with the patient. Patient has a past medical history of Gerd, anxiety/depression, diabetes mellitus type II, urinary tract infections, kidney stones, irritable bowel syndrome, chronic back pain, chronic right shoulderpain. Patient was last discharged from here in 2019 when the patient was here for a headache. Patient reports having a five day history of severe abdominal pain. She reports that the pain is located around the right front lower rib area and radiates down the right side of her entire abdomen. She denies fevers, chills or night sweats. She describes the pain as a stabbing pain. Denies any trauma to the area. Denies chest pain or shortness of breath. Denies a cough. Has had two episodes of nausea and vomiting. Denies diarrhea. Per the patient she has never had anything like this before. Since presenting to the emergency room the patient has been afebrile, hemodynamically stable, 96% room air. The following labs and imaging were personally reviewed CBC within normal limits D dimer less than 200 urinalysis not concerning for infection CMP within normal limits lipase 32 lactic acid 1.8 high-sensitivity troponin less than three CT abdomen and pelvis with contrast did not show any concerning finding abdominal ultrasound did not show gallstones. Gallbladder wall is at the upper limits of normal., Bile duct is mildly dilated measuring 8 mm. Nonobstructing right renal calculus. EKG personally reviewed and interpreted showed sinus rhythm Emergency room the patient was given Dilaudid, Toradol and Zofran. Past medical history: TIA (transient ischemic attack) At risk for colon cancer Degenerative disc disease, cervical Fatigue GERD (gastroesophageal reflux disease) History of kidney disease Hot flashes due to menopause IBS (irritable bowel syndrome) Insomnia Knee pain, bilateral Long-term current use of proton pump inhibitor therapy Major depressive disorder, recurrent Mixed hyperlipidemia Neck pain Pes anserinus bursitis of right knee Plantar fasciitis Postmenopausal HRT (hormone replacement therapy) Renal calculi Right shoulder pain Rotator cuff tear, right Somatic dysfunction of cervical region Somatic dysfunction of lower extremity Somatic dysfunction of lumbar region Somatic dysfunction of pelvic region Somatic dysfunction of rib region Somatic dysfunction of sacral region Somatic dysfunction of thoracic region Strain of muscle of multiple sites Trochanteric bursitis, left hip Rotator cuff tear: 01/12/25 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 Ureter Kidney Discectomy Elbow section H/O: tubal ligation Dilation and curettage of uterus Ovarian cystectomy Family history: Father: Diabetes; Diabetes mellitus; Stroke Mother: Colon cancer Daughter: Asthma Social history: Denies smoking cigarettes or alcohol consumption Medications: Home Medications (21) Active, medications were not verified by pharmacy at the time of this dictation buPROPion 75 mg oral tablet 75 mg = 1 tab(s), Oral, Daily dicyclomine 10 mg oral capsule 10 mg = 1 cap(s), Oral, QID dicyclomine 10 mg oral capsule 10 mg = 1 cap(s), Oral, QID DULoxetine 30 mg oral delayed release capsule 30 mg = 1 cap(s), Oral, qDay estradiol 1 mg oral tablet 2 mg = 2 tab(s), Oral, qDay gabapentin 600 mg oral tablet medroxyPROGESTERone 5 mg oral tablet 5 mg = 1 tab(s), Oral, Daily medroxyPROGESTERone 5 mg oral tablet See Instructions MetFORMIN (Eqv-Glucophage XR) 500 mg oral tablet, EXTENDED RELEASE 500 mg = 1 tab(s), Oral, BID naltrexone 50 mg oral tablet See Instructions nitrofurantoin macrocrystals 100 mg oral capsule Brewer 325- 5 mg oral tablet 1 tab(s), PRN, Oral, q6h omeprazole 20 mg oral delayed release capsule 20 mg = 1 cap(s), Oral, qDay ondansetron 4 mg oral tablet, disintegrating 4 mg = 1 tab(s), PRN, Oral, q6h prednisone 10mg tab (TAPER) Taper 68-93-76-10-5 mg, Oral, Daily Probiotic 1 capsule, Oral, Daily scopolamine 1 mg/72 hr transdermal film, extended release 1 patch(es), PRN, Topical, q72h Testosterone (Eqv-AndroGel Packets) 20.25 mg/packet (1.62%) transdermal gel 1 packet(s), Transdermal, qAM traZODone 100 mg oral tablet 200 mg = 2 tab(s), Oral, qHS turmeric 500 mg oral capsule See Instructions venlafaxine 37.5 mg oral capsule, extended release 37.5 mg = 1 cap(s), Oral, qDay Allergies: Demerol HCl (Rash) morphine (Rash) Review of systems: See HPI for pertinent positives and negatives. All other review of systems have been reviewed and they are negative. Vitals Signs(Last 24 hrs)__Last Charted Minimum Maximum Temp36.7(APR 16:)36.7(APR 16:)36.7(APR 16:) [id number](APR 17 03:56)106(APR 17 01:00)120(APR 17 03:56) DBP63(APR 17 03:56)63(APR 17 03:56)77(APR 16:) Physical examination: HEENT: No Pallor, No Icterus Cardiac: RRR, No murmur Lungs: CTA, good air entry Abdomen: Soft, complaining of pain to palpation of the whole right side of her abdomen Musculoskeletal: No joint pains or swelling Extremities: No edema, good pulses Neurological: Alert, no deficits Skin: No rash, no nodules Labs: WBC: 5.9 10^3/mcL (04/16/25 23:59:00) RBC: 4.2 10^6/mcL (04/16/25 23:59:00) Hgb: 12.8 G/dL (04/16/25 23:59:00) Hct: 36.9 % (04/16/25 23:59:00) MCV: 87.7 fL (04/16/25 23:59:00) MCH: 30.4 pg (04/16/25 23:59:00) MCHC: 34.6 G/dL (04/16/25 23:59:00) RDW: 13.8 % (04/16/25 23:59:00) Platelet: 295 10^3/mcL (04/16/25 23:59:00) MPV: 9.7 fL (04/16/25 23:59:00) Monocyte Distribution Width: 19.98 (04/16/25 23:59:00) Neutrophil %: 58 % (04/16/25 23:59:00) Lymphocyte %: 30.4 % (04/16/25 23:59:00) Monocyte %: 7 % (04/16/25 23:59:00) Eosinophil %: 3.8 % (04/16/25 23:59:00) Basophil %: 0.8 % (04/16/25 23:59:00) Neutrophil, Absolute: 3.4 10^3/mcL (04/16/25 23:59:00) Lymphocyte, Absolute: 1.8 10^3/mcL (04/16/25 23:59:00) Monocyte, Absolute: 0.4 10^3/mcL (04/16/25 23:59:00) Eosinophil, Absolute: 0.2 10^3/mcL (04/16/25 23:59:00) Basophil, Absolute: 0 10^3/mcL (04/16/25 23:59:00) D-Dimer HS: <200 (04/16/25 23:59:00) UA Specimen Type: Clean Catch (04/17/25 00:10:00) UA Color: Yellow (04/17/25 00:10:00) UA Appear: Clear (04/17/25 00:10:00) UA Spec Grav: 1.020 (04/17/25 00:10:00) UA Glucose: Negative. (04/17/25 00:10:00) UA Bili: Negative. (04/17/25 00:10:00) UA Ketones: Negative.1 (04/17/25 00:10:00) UA Blood: Negative. (04/17/25 00:10:00) UA pH: 5.5 (04/17/25 00:10:00) UA Protein: Negative.1 (04/17/25 00:10:00) UA Urobilinogen: 0.2 (04/17/25 00:10:00) UA Nitrite: Negative. (04/17/25 00:10:00) UA Leuk Est: Negative. (04/17/25 00:10:00) Glucose Level: 121 mg/dL High (04/16/25 23:59:00) Sodium Level: 138 mEq/L (04/16/25 23:59:00) Potassium Level: 3.6 mEq/L (04/16/25 23:59:00) Chloride: 103 mEq/L (04/16/25 23:59:00) CO2: 24 mEq/L (04/16/25 23:59:00) Electrolyte Balance: 11 mEq/L (04/16/25 23:59:00) BUN: 11 mg/dL (04/16/25 23:59:00) Creatinine Lvl (s): 0.91 mg/dL (04/16/25 23:59:00) Estimated Glomerular Filtration Rate: 76 ml/min/1.73sqm (04/16/25 23:59:00) BUN/Creatinine Ratio: 12.1 ratio (04/16/25 23:59:00) Calcium Lvl: 9.5 mg/dL (04/16/25 23:59:00) Total Protein: 6.6 G/dL (04/16/25 23:59:00) Albumin Level: 3.3 G/dL (04/16/25 23:59:00) Globulin: 3.3 G/dL (04/16/25 23:59:00) A/G Ratio: 1 ratio (04/16/25 23:59:00) Bili Total: <0.20 (04/16/25 23:59:00) Alk Phos: 62 U/L (04/16/25 23:59:00) AST/SGOT: 20 U/L (04/16/25 23:59:00) ALT/SGPT: 16 U/L (04/16/25 23:59:00) Lipase Level: 32 U/L (04/16/25 23:59:00) Lactic Acid Lvl: 1.8 mmol/L (04/16/25 23:59:00) High Sensitivity Troponin I: <3 (04/16/25 23:59:00) Urinalysis UA Specimen Type: Clean Catch (04/17/25 00:10:00) UA Color: Yellow (04/17/25 00:10:00) UA Appear: Clear (04/17/25 00:10:00) UA Spec Grav: 1.020 (04/17/25 00:10:00) UA Glucose: Negative. (04/17/25 00:10:00) UA Bili: Negative. (04/17/25 00:10:00) UA Ketones: Negative.1 (04/17/25 00:10:00) UA Blood: Negative. (04/17/25 00:10:00) UA pH: 5.5 (04/17/25 00:10:00) UA Protein: Negative.1 (04/17/25 00:10:00) UA Urobilinogen: 0.2 (04/17/25 00:10:00) UA Nitrite: Negative. (04/17/25 00:10:00) UA Leuk Est: Negative. (04/17/25 00:10:00) Assessment and plan: Patient presents on April 17, 2025 with a five day history of abdominal pain. Abdominal pain of unclear etiology. Symptomatic management. Does not appear to be infectious related. The patient has been afebrile and does not have a leukocytosis. CT abdomen and pelvis with contrast and abdominal ultrasound did not show any concerning finding. Will get repeat labs. Will give IV fluids. Will check an ESR and CRP. Most likely somatic pain versus psychogenic. Gerd. Continue home medications Anxiety/depression. Continue medications Diabetes mellitus type II. Continue home medications Chronic cervical spine pain and chronic right shoulder pain. Follows with orthopedic surgery Prophylaxis Lovenox Code status full code Digitally Signed by PEG SOUZA MD on 04/17/2025 04:28 AM [id number] History and physical note [facility] History and Physical Date of Admission: patient is being admitted on April 17, 2025 Chief complaint: abdominal pain History of present illness: History is taken from talking with emergency room physician Dr. Melvin as well as talking with the patient. Patient has a past medical history of Gerd, anxiety/depression, diabetes mellitus type II, urinary tract infections, kidney stones, irritable bowel syndrome, chronic back pain, chronic right shoulderpain. Patient was last discharged from here in 2019 when the patient was here for a headache. Patient reports having a five day history of severe abdominal pain. She reports that the pain is located around the right front lower rib area and radiates down the right side of her entire abdomen. She denies fevers, chills or night sweats. She describes the pain as a stabbing pain. Denies any trauma to the area. Denies chest pain or shortness of breath. Denies a cough. Has had two episodes of nausea and vomiting. Denies diarrhea. Per the patient she has never had anything like this before. Since presenting to the emergency room the patient has been afebrile, hemodynamically stable, 96% room air. The following labs and imaging were personally reviewed CBC within normal limits D dimer less than 200 urinalysis not concerning for infection CMP within normal limits lipase 32 lactic acid 1.8 high-sensitivity troponin less than three CT abdomen and pelvis with contrast did not show any concerning finding abdominal ultrasound did not show gallstones. Gallbladder wall is at the upper limits of normal., Bile duct is mildly dilated measuring 8 mm. Nonobstructing right renal calculus. EKG personally reviewed and interpreted showed sinus rhythm Emergency room the patient was given Dilaudid, Toradol and Zofran. Past medical history: TIA (transient ischemic attack) At risk for colon cancer Degenerative disc disease, cervical Fatigue GERD (gastroesophageal reflux disease) History of kidney disease Hot flashes due to menopause IBS (irritable bowel syndrome) Insomnia Knee pain, bilateral Long-term current use of proton pump inhibitor therapy Major depressive disorder, recurrent Mixed hyperlipidemia Neck pain Pes anserinus bursitis of right knee Plantar fasciitis Postmenopausal HRT (hormone replacement therapy) Renal calculi Right shoulder pain Rotator cuff tear, right Somatic dysfunction of cervical region Somatic dysfunction of lower extremity Somatic dysfunction of lumbar region Somatic dysfunction of pelvic region Somatic dysfunction of rib region Somatic dysfunction of sacral region Somatic dysfunction of thoracic region Strain of muscle of multiple sites Trochanteric bursitis, left hip Rotator cuff tear: 01/12/25 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 Ureter Kidney Discectomy Elbow section H/O: tubal ligation Dilation and curettage of uterus Ovarian cystectomy Family history: Father: Diabetes; Diabetes mellitus; Stroke Mother: Colon cancer Daughter: Asthma Social history: Denies smoking cigarettes or alcohol consumption Medications: Home Medications (21) Active, medications were not verified by pharmacy at the time of this dictation buPROPion 75 mg oral tablet 75 mg = 1 tab(s), Oral, Daily dicyclomine 10 mg oral capsule 10 mg = 1 cap(s), Oral, QID dicyclomine 10 mg oral capsule 10 mg = 1 cap(s), Oral, QID DULoxetine 30 mg oral delayed release capsule 30 mg = 1 cap(s), Oral, qDay estradiol 1 mg oral tablet 2 mg = 2 tab(s), Oral, qDay gabapentin 600 mg oral tablet medroxyPROGESTERone 5 mg oral tablet 5 mg = 1 tab(s), Oral, Daily medroxyPROGESTERone 5 mg oral tablet See Instructions MetFORMIN (Eqv-Glucophage XR) 500 mg oral tablet, EXTENDED RELEASE 500 mg = 1 tab(s), Oral, BID naltrexone 50 mg oral tablet See Instructions nitrofurantoin macrocrystals 100 mg oral capsule Brewer 325- 5 mg oral tablet 1 tab(s), PRN, Oral, q6h omeprazole 20 mg oral delayed release capsule 20 mg = 1 cap(s), Oral, qDay ondansetron 4 mg oral tablet, disintegrating 4 mg = 1 tab(s), PRN, Oral, q6h prednisone 10mg tab (TAPER) Taper 98-31-91-10-5 mg, Oral, Daily Probiotic 1 capsule, Oral, Daily scopolamine 1 mg/72 hr transdermal film, extended release 1 patch(es), PRN, Topical, q72h Testosterone (Eqv-AndroGel Packets) 20.25 mg/packet (1.62%) transdermal gel 1 packet(s), Transdermal, qAM traZODone 100 mg oral tablet 200 mg = 2 tab(s), Oral, qHS turmeric 500 mg oral capsule See Instructions venlafaxine 37.5 mg oral capsule, extended release 37.5 mg = 1 cap(s), Oral, qDay Allergies: Demerol HCl (Rash) morphine (Rash) Review of systems: See HPI for pertinent positives and negatives. All other review of systems have been reviewed and they are negative. Vitals Signs(Last 24 hrs)__Last Charted Minimum Maximum Temp36.7(TOBIAS 29 23:26)36.7(APR 16:)36.7(APR 16:) [id number](APR 17 03:56)106(APR 17 01:00)120(APR 17 03:56) DBP63(APR 17 03:56)63(APR 17 03:56)77(APR 16:) Physical examination: HEENT: No Pallor, No Icterus Cardiac: RRR, No murmur Lungs: CTA, good air entry Abdomen: Soft, complaining of pain to palpation of the whole right side of her abdomen Musculoskeletal: No joint pains or swelling Extremities: No edema, good pulses Neurological: Alert, no deficits Skin: No rash, no nodules Labs: WBC: 5.9 10^3/mcL (04/16/25 23:59:00) RBC: 4.2 10^6/mcL (04/16/25 23:59:00) Hgb: 12.8 G/dL (04/16/25 23:59:00) Hct: 36.9 % (04/16/25 23:59:00) MCV: 87.7 fL (04/16/25 23:59:00) MCH: 30.4 pg (04/16/25 23:59:00) MCHC: 34.6 G/dL (04/16/25 23:59:00) RDW: 13.8 % (04/16/25 23:59:00) Platelet: 295 10^3/mcL (04/16/25 23:59:00) MPV: 9.7 fL (04/16/25 23:59:00) Monocyte Distribution Width: 19.98 (04/16/25 23:59:00) Neutrophil %: 58 % (04/16/25 23:59:00) Lymphocyte %: 30.4 % (04/16/25 23:59:00) Monocyte %: 7 % (04/16/25 23:59:00) Eosinophil %: 3.8 % (04/16/25 23:59:00) Basophil %: 0.8 % (04/16/25 23:59:00) Neutrophil, Absolute: 3.4 10^3/mcL (04/16/25 23:59:00) Lymphocyte, Absolute: 1.8 10^3/mcL (04/16/25 23:59:00) Monocyte, Absolute: 0.4 10^3/mcL (04/16/25 23:59:00) Eosinophil, Absolute: 0.2 10^3/mcL (04/16/25 23:59:00) Basophil, Absolute: 0 10^3/mcL (04/16/25 23:59:00) D-Dimer HS: <200 (04/16/25 23:59:00) UA Specimen Type: Clean Catch (04/17/25 00:10:00) UA Color: Yellow (04/17/25 00:10:00) UA Appear: Clear (04/17/25 00:10:00) UA Spec Grav: 1.020 (04/17/25 00:10:00) UA Glucose: Negative. (04/17/25 00:10:00) UA Bili: Negative. (04/17/25 00:10:00) UA Ketones: Negative.1 (04/17/25 00:10:00) UA Blood: Negative. (04/17/25 00:10:00) UA pH: 5.5 (04/17/25 00:10:00) UA Protein: Negative.1 (04/17/25 00:10:00) UA Urobilinogen: 0.2 (04/17/25 00:10:00) UA Nitrite: Negative. (04/17/25 00:10:00) UA Leuk Est: Negative. (04/17/25 00:10:00) Glucose Level: 121 mg/dL High (04/16/25 23:59:00) Sodium Level: 138 mEq/L (04/16/25 23:59:00) Potassium Level: 3.6 mEq/L (04/16/25 23:59:00) Chloride: 103 mEq/L (04/16/25 23:59:00) CO2: 24 mEq/L (04/16/25 23:59:00) Electrolyte Balance: 11 mEq/L (04/16/25 23:59:00) BUN: 11 mg/dL (04/16/25 23:59:00) Creatinine Lvl (s): 0.91 mg/dL (04/16/25 23:59:00) Estimated Glomerular Filtration Rate: 76 ml/min/1.73sqm (04/16/25 23:59:00) BUN/Creatinine Ratio: 12.1 ratio (04/16/25 23:59:00) Calcium Lvl: 9.5 mg/dL (04/16/25 23:59:00) Total Protein: 6.6 G/dL (04/16/25 23:59:00) Albumin Level: 3.3 G/dL (04/16/25 23:59:00) Globulin: 3.3 G/dL (04/16/25 23:59:00) A/G Ratio: 1 ratio (04/16/25 23:59:00) Bili Total: <0.20 (04/16/25 23:59:00) Alk Phos: 62 U/L (04/16/25 23:59:00) AST/SGOT: 20 U/L (04/16/25 23:59:00) ALT/SGPT: 16 U/L (04/16/25 23:59:00) Lipase Level: 32 U/L (04/16/25 23:59:00) Lactic Acid Lvl: 1.8 mmol/L (04/16/25 23:59:00) High Sensitivity Troponin I: <3 (04/16/25 23:59:00) Urinalysis UA Specimen Type: Clean Catch (04/17/25 00:10:00) UA Color: Yellow (04/17/25 00:10:00) UA Appear: Clear (04/17/25 00:10:00) UA Spec Grav: 1.020 (04/17/25 00:10:00) UA Glucose: Negative. (04/17/25 00:10:00) UA Bili: Negative. (04/17/25 00:10:00) UA Ketones: Negative.1 (04/17/25 00:10:00) UA Blood: Negative. (04/17/25 00:10:00) UA pH: 5.5 (04/17/25 00:10:00) UA Protein: Negative.1 (04/17/25 00:10:00) UA Urobilinogen: 0.2 (04/17/25 00:10:00) UA Nitrite: Negative. (04/17/25 00:10:00) UA Leuk Est: Negative. (04/17/25 00:10:00) Assessment and plan: Patient presents on April 17, 2025 with a five day history of abdominal pain. Abdominal pain of unclear etiology. Symptomatic management. Does not appear to be infectious related. The patient has been afebrile and does not have a leukocytosis. CT abdomen and pelvis with contrast and abdominal ultrasound did not show any concerning finding. Will get repeat labs. Will give IV fluids. Will check an ESR and CRP. Most likely somatic pain versus psychogenic. Gerd. Continue home medications Anxiety/depression. Continue medications Diabetes mellitus type II. Continue home medications Chronic cervical spine pain and chronic right shoulder pain. Follows with orthopedic surgery Prophylaxis Lovenox Code status full code Digitally Signed by PEG SOUZA MD on 04/17/2025 04:28 AM [id number] Note* Exam Date Time Procedure Performing Provider Status 04/17/25 2:49 AM US Abdomen Limited MARQUIS WESLEY; Auth (Verified) [id number] ORIGINAL EXAMINATION: RIGHT UPPER QUADRANT ULTRASOUND 04/17/2025 2:49 am COMPARISON: CT abdomen and pelvis on 04/15/2025 HISTORY: ORDERING SYSTEM PROVIDED HISTORY: Reason for Exam: RUQ pain Permanently stored images were reviewed FINDINGS: LIVER: The liver is normal in size with long axis of 16 cm. The liver demonstrates normal echogenicity without evidence of intrahepatic biliary ductal dilatation. BILIARY SYSTEM: Gallbladder is normal in size. There are no gallstones. Gallbladder wall is at the upper limits of normal. There is no pericholecystic fluid. [place] sign is unreliable due to prior medication administration. Common bile duct is mildly dilated measuring 8 mm.. RIGHT KIDNEY: Right kidney measures 11.7 x 4.2 x 3.9 cm. Renal cortex has normal thickness and echogenicity. There is no hydronephrosis. Nonobstructing right renal calculus is present. There is no perinephric abnormality. PANCREAS: Visualized portions of the pancreas are unremarkable. OTHER: No evidence of right upper quadrant ascites. IMPRESSION: 1. No gallstones. Gallbladder wall is at the upper limits of normal. 2. Common bile duct is mildly dilated measuring 8 mm. 3. Nonobstructing right renal calculus. Interpreted by: Marquis Wesley MD Preliminary Report By: Marquis Wesley MD Electronically signed By Marquis Wesley MD Dictated Date: 04/17/2025 2:52:01 AM Prelim Date: 04/17/2025 2:57:16 AM Sign Date: 04/17/2025 2:57:16 AM Ordering Provider: ELODIA RAGLAND Interpreted by: Marquis Wesley MD Preliminary Report By: Marquis Wesley MD Electronically signed By Marquis Wesley MD Dictated Date: 04/17/2025 2:52:01 AM Prelim Date: 04/17/2025 2:57:16 AM Sign Date: 04/17/2025 2:57:16 AM Ordering Provider: [facility]LAND [id number]* Exam Date Time Procedure Performing Provider Status 04/16/25 11:48 PM EKG (ED) - CV ELODIA RAGLAND DO; A uth (Verified) ECG Final Report SINUS RHYTHM LEFT AXIS DEVIATION Electronic Signature: ELODIA RAGLAND DO 04/17/2025 01:19:38 [id number] Discharge instructions Patient Education 04/15/2025 18:26:16 Abdominal Pain, Unknown Cause, (Female) Unknown Causes of Abdominal Pain (Female) The exact cause of your belly (abdominal) pain is not clear. This does not mean that this is something to worry about. Everyone likes to know the exact cause of the problem. But sometimes with belly pain, there is no clear-cut cause, and this could be a good thing. The good news is that your symptoms can be treated, and you will feel better. Your condition does not seem serious now. But sometimes the signs of a serious problem may take more time to appear. For this reason, it is important for you to watch for any new symptoms, problems, or worsening of your condition. Over the next few days, the abdominal pain may come and go. Or it may be constant. Other common symptoms can include nausea and vomiting. Sometimes it can be difficult to tell if you feel nauseous. You may just feel bad and not connect that feeling to nausea. Constipation, diarrhea, and a fever maygo along with the pain. The pain may continue even if treated correctly over the following days. Depending on how things go, sometimes the cause can become clear and may need more or different treatment. Additional evaluations, medicines, or tests may also be needed. Home care Your healthcare provider may prescribe medicine for pain, symptoms, or an infection. Follow the healthcare provider's instructions for taking these medicines. General care Rest as much as you can until your next exam. No strenuous activities. Try to find positions that ease discomfort. A small pillow placed on the abdomen may help relieve pain. Something warm on your abdomen (such as a heating pad) may help, but be careful not to burn yourself. Diet Don t force yourself to eat, especially if having cramps, vomiting, or diarrhea. Water is important so you don't get dehydrated. Soup may also be good. Sports drinks may also help,especially if they are not too acidic. Don't drink sugary drinks as this can make things worse. Take liquids in small amounts. Don t guzzle them. Caffeine sometimes makes the pain and cramping worse. Don t take dairy products if you have vomiting or diarrhea. Don't eat large amounts at a time. Wait a few minutes between bites. Eat a diet low in fiber (called a low-residue diet). Foods allowed include refined breads, white rice, fruit and vegetable juices without pulp, tender meats. These foods will pass more easily throughthe intestine. Don t have whole-grain foods, whole fruits and vegetables, meats, seeds and nuts, fried or fatty foods, dairy, alcohol and spicy foods until your symptoms go away. Follow-up care Follow up with your healthcare provider, or as advised, if your pain does not begin to improve in the next 24 hours. Call 911 Call 911 if any of these occur: Trouble breathing Confusion Fainting or loss of consciousness Rapid heart rate Seizure When to seek medical advice Call your healthcare provider right away if any of these occur: Pain gets worse or moves to the right lower abdomen New or worsening vomiting or diarrhea Swelling of the abdomen Unable to pass stool for more than 3 days Fever of 100.4 F (38 C) or higher, or as directed by your healthcare provider. Blood in vomit or bowel movements (dark red or black color) Yellow color of eyes and skin (jaundice) Weakness, dizziness Chest, arm, back, neck, or jaw pain Unexpected vaginal bleeding or missed period Can't keep down liquids or water and you are getting dehydrated [id number] [employer]. [address] [place] [address]. All rights reserved. This information is not intended as a substitute for professional medical care. Always follow yourhealthcare professional's instructions. Follow Up Care 04/15/2025 14:55:58 With:CANDE VILLALOBOS MD Address: [facility] [place] [address] [address] [phone] When:2-4 days With:Go to emergency room if symptoms worsen Address:Unknown When:2-4 days With:DOV MEADE DO Address: [address] [place] [phone] [phone] When:2-4 days [facility] 06-28-2025 Note Discharge Instructions Thank you for allowing [facility] to assist you with your healthcare needs. The following is importantdischarge information regarding your hospital visit. Diagnosis from Today's Visit Abdominal pain What to Do Next Instructions from Your Care Team You are prescribed a short course of pain medication. Also prescribed nausea and cramping medication. Please get plenty of fluids. Can also take MiraLAX in addition to the suppository or enemas to assist with stool burden noted on CT scan. Please follow closely with your GI physician, call for [facility] Thursday for close outpatient follow-up. Return to the emergency department for any acute worsening symptoms including intractable worsening pain, intractable nausea or vomiting or other acute emergent concerns. No qualifying data available. Post Acute Orders No qualifying data available. You Need to Schedule the Following Appointments Follow Up with CANDE VILLALOBOS MD When:Within 2-4 days Where:[address] [address] [phone] Follow Up with Go to emergency room if symptoms worsen When:Within 2-4 days Follow Up with DOV MEADE DO When:Within 2-4 days Where:[address] [place] [phone] Allergies Demerol HCl Rash morphine Rash Medications Please ask your primary doctor or pharmacist before taking any other medication not listed, including over the counter drugs, herbal medications, vitamins and or supplements as they may interact withyour home medications. What How Much When Why Instructions Last Dose New acetaminophen-hydrocodone (Brewer 325- 5 mg oral tablet) 1 tab(s) by mouth Every 6 hours as needed for for pain Abdominal pain Duration: 3 Days Printed Prescription New ondansetron (ondansetron 4 mg oral tablet, disintegrating) 1 tab(s) by mouth Every 6 hours as needed for Nausea/Vomiting Printed Prescription Changed dicyclomine (dicyclomine 10 mg oral capsule) 1 cap by mouth Four (4) times a day Duration: 30 Days 28 EA, 0 Refill(s), TAKE 1 CAPSULE BY MOUTH 4 TIMES A DAY FOR 7 Changed dicyclomine (dicyclomine 10 mg oral capsule) 1 cap by mouth Four (4) times a day Duration: 7 Days Printed Prescription Unchanged buPROPion (buPROPion 75 mg oral tablet) 1 tab(s) by mouth Every day Unchanged DULoxetine (DULoxetine 30 mg oral delayed release capsule) 1 cap by mouth Once a day Unchanged estradiol (estradiol 1 mg oral tablet) 2 tab(s) by mouth Once a day Unchanged gabapentin (gabapentin 600 mg oral tablet) Unchanged herbal/ nutritional product (Probiotic) 1 capsule by mouth Every day Unchanged herbal/ nutritional product (turmeric 500 mg oral capsule) See instructions 1 cap(s) Oral Daily Unchanged medroxyPROGESTERone (medroxyPROGESTERone 5 mg oral tablet) 1 tab(s) by mouth Every day Unchanged medroxyPROGESTERone (medroxyPROGESTERone 5 mg oral tablet) See instructions TAKE 1 TABLET BY MOUTH EVERY DAY Unchanged metFORMIN (MetFORMIN (Eqv-Glucophage XR) 500 mg oral tablet, EXTENDED RELEASE) 1 tab(s) by mouth Two (2) times a day Non-osmotic formulation please Unchanged naltrexone (naltrexone 50 mg oral tablet) See instructions 0.5 Tablets Oral Daily NOT TO TAKE SAME DAY NORCO Unchanged nitrofurantoin (nitrofurantoin macrocrystals 100 mg oral capsule) TAKE 1 CAPSULE BY MOUTH EVERY DAY AT BEDTIME WITH FOOD Unchanged omeprazole (omeprazole 20 mg oral delayed release capsule) 1 cap by mouth Once a day GERD (gastroesophageal reflux disease) Unchanged predniSONE (prednisone 10mg tab (TAPER)) Taper 51-61-27-10-5 mg by mouth Every day SI (sacroiliac) pain Duration: 14 Days Take 6 tabs daily x 3days, then 4 tabs daily x 3days, then 2 tabs daily x 3days,then 1 tab daily x 3days,then 1/ 2 tab daily x 2 days Unchanged scopolamine (scopolamine 1 mg/ 72 hr transdermal film, extended release) 1 patch(es) Topical Every 72 hours as needed for as needed for motion sickness Unchanged testosterone (Testosterone (Eqv-AndroGel Packets) 20.25 mg/ packet (1.62%) transdermal gel) 1 Packet(s) Transdermal Once a day (in the morning) Hypoactive sexual desire disorder apply to skin Unchanged traZODone (traZODone 100 mg oral tablet) 2 tab(s) by mouth Daily at bedtime Unchanged venlafaxine (venlafaxine 37.5 mg oral capsule, extended release) 1 cap by mouth Once a day Decrease from 75mg to 37.5mg for 2-4 weeks before cessation. May start duloxetine 2 weeks before cessation Please take this list to your next doctor s visit. Bring all medications you take, including over the counter medications, herbals and other supplements with you to your doctor s visit. Patients and families are reminded to discard old lists and to update any records with all medication providers or retail pharmacies. Education Materials Unknown Causes of Abdominal Pain (Female) The exact cause of your belly (abdominal) pain is not clear. This does not mean that this is something to worry about. Everyone likes to know the exact cause of the problem. But sometimes with belly pain, there is no clear-cut cause, and this could be a good thing. The good news is that your symptoms can be treated, and you will feel better. Your condition does not seem serious now. But sometimes the signs of a serious problem may take more time to appear. For this reason, it is important for you to watch for any new symptoms, problems, or worsening of your condition. Over the next few days, the abdominal pain may come and go. Or it may be constant. Other common symptoms can include nausea and vomiting. Sometimes it can be difficult to tell if you feel nauseous. You may just feel bad and not connect that feeling to nausea. Constipation, diarrhea, and a fever maygo along with the pain. The pain may continue even if treated correctly over the following days. Depending on how things go, sometimes the cause can become clear and may need more or different treatment. Additional evaluations, medicines, or tests may also be needed. Home care Your healthcare provider may prescribe medicine for pain, symptoms, or an infection. Follow the healthcare provider's instructions for taking these medicines. General care Rest as much as you can until your next exam. No strenuous activities. Try to find positions that ease discomfort. A small pillow placed on the abdomen may help relieve pain. Something warm on your abdomen (such as a heating pad) may help, but be careful not to burn yourself. Diet Don t force yourself to eat, especially if having cramps, vomiting, or diarrhea. Water is important so you don't get dehydrated. Soup may also be good. Sports drinks may also help,especially if they are not too acidic. Don't drink sugary drinks as this can make things worse. Take liquids in small amounts. Don t guzzle them. Caffeine sometimes makes the pain and cramping worse. Don t take dairy products if you have vomiting or diarrhea. Don't eat large amounts at a time. Wait a few minutes between bites. Eat a diet low in fiber (called a low-residue diet). Foods allowed include refined breads, white rice, fruit and vegetable juices without pulp, tender meats. These foods will pass more easily throughthe intestine. Don t have whole-grain foods, whole fruits and vegetables, meats, seeds and nuts, fried or fatty foods, dairy, alcohol and spicy foods until your symptoms go away. Follow-up care Follow up with your healthcare provider, or as advised, if your pain does not begin to improve in the next 24 hours. Call 911 Call 911 if any of these occur: Trouble breathing Confusion Fainting or loss of consciousness Rapid heart rate Seizure When to seek medical advice Call your healthcare provider right away if any of these occur: Pain gets worse or moves to the right lower abdomen New or worsening vomiting or diarrhea Swelling of the abdomen Unable to pass stool for more than 3 days Fever of 100.4 F (38 C) or higher, or as directed by your healthcare provider. Blood in vomit or bowel movements (dark red or black color) Yellow color of eyes and skin (jaundice) Weakness, dizziness Chest, arm, back, neck, or jaw pain Unexpected vaginal bleeding or missed period Can't keep down liquids or water and you are getting dehydrated [id number] [employer]. [address] [place] [address]. All rights reserved. This information is not intended as a substitute for professional medical care. Always follow yourhealthcare professional's instructions. Additional Information VACCINATE! IT SAVES LIVES! Members of the community who have not yet received the COVID-19 vaccine and would like to receive it can visit one of [facility] vaccine clinics. There are many vaccine clinic locations within the [facility]. For locations and available times, please visit www.gettheshot.coronavirus.[place].gov/. It is important to note that some COVID mobile vaccine clinics are held outdoors and may be canceled in rainy or stormy conditions. To learn more about pediatric vaccinations (ages 5-11), we invite you to visit the [facility] webpage. https://www.[employer].org/pages/8574-Rqwhn-Svnsakqxxro-Wjyushiknx-Ddksf-Ajy stions.htmlTo learn more about the COVID-19 vaccine, we invite you to visit the CDC website for a list of frequently asked questions. https://www.cdc.gov/coronavirus/2019-ncov/vaccines/faq.html [facility] Patient Portal Access Instructions: Stay connected with your healthcare team and access your personal medical information anytime with the [facility] Patient Portal. If you would like a full copy of your medical records please contact the [facility] Medical Records Department Thursday through Thursday between 8a.m. and 4:30p.m. Please follow the directions below to access the portal: 1.Access the email account you provided upon registration to the [facility].2.Look for an invitation email from [facility].3.Open the email and access the invitation link: Accept Invitation to [facility].Fill in the required diaz to create your account. Sign into [email or web address] with your username and password that you created in the above steps to stay up to date. You can then view a summary of results, a summary of your visits, and the ability to download your summaries to your computer or send the information securely to a physician. Remember that your healthcare information is confidential, so carefully consider who you will allow to register on the [facility] Patient Portal for access to your information. You can also access the [employer] Patient Portal on the [employer]. Simply click on Health Records under jigl and then click on the [facility] logo. HOW TO SAFELY DISPOSE OF PRESCRIPTION MEDICATIONS Please use one of the following methods to safely dispose of your unused medications. 1.Use a drug disposal kit: the drug disposal pouch allows you to safely discard your old and unuseddrugs. Ask your nurse to give you one when you are discharged.2.Visit a local take-back location: Many local pharmacies and police departments have programs that collect old and unwanted prescriptiondrugs. Call your local pharmacy or go to http://[employer].Mismi/7Y7Np7q to find one close to you.3.Make use of household items: Use cat litter or old coffee grounds to dispose medications if other options arenot available. Mix your drugs with these household products, seal them in an airtight container andthrow it into the garbage. Call [facility]: [phone] to be sure your drugs can be disposed of in this way. Some medicines may require a different approach.4.Never flush your medications down the toilet. IF YOU HAVE BEEN PRESCRIBED AN OPIOIDS FOR PAIN If you have been prescribed an opioid (such as hydrocodone, oxycodone or morphine), it is critical to understand the possible side effects and risks of opioid pain medications. Even when taken as directed, opioids can have several side effects including: Tolerance, meaning you might need to take more of a medication for the same pain relief. Nausea, vomiting and/or constipation. Sleepiness, dizziness, dry mouth, confusion, depression or itching. Physical dependence, meaning you have withdrawal symptoms when a medication is stopped ? this can develop within a few days. KNOW YOUR RESPONSIBILITIES It is important to know exactly how much and how often to take the opioid pain medications you are prescribed. Never take opioids in higher amounts or more often than prescribed. Do not combine opioids with alcohol or other drugs that cause drowsiness, such as benzodiazepines, also known as benzos,including diazepam and alprazolam, muscle relaxants or sleep aids. Never sell or share prescriptionopioids. This is illegal. Store opioids in a secure place and out of reach of others (including children, family, friends and visitors). The last page(s) of this document has been signed and retained as a CHART COPY Signatures Patient Education Materials Abdominal Pain, Unknown Cause, (Female) Medication Leaflets My discharge plan and instructions have been reviewed and explained to me and I,JANES ASHLEY understand my current condition and have read and understand these discharge instructions. I have received a written copy of the plan/instructions. If I have questions, I am aware that I should contact my doctor. 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 Multiplanar reformatted images are provided for review. Automated exposure control, iterative reconstruction, and/or weight based adjustment of the mA/kV was utilized to reduce the radiation dose to as low as reasonably achievable. COMPARISON: CT abdomen pelvis 08/20/2017 HISTORY: ORDERING SYSTEM PROVIDED HISTORY: Reason for Exam: Abdominal pain, acute, nonlocalized FINDINGS: The heart is normal in size. No pericardial thickening. Trace amount of pericardial recess fluid. Atelectasis and scarring noted within the lung bases. The aorta is nonaneurysmal with minimal atherosclerosis. No adenopathy within the abdomen or pelvis. Stable 2 cm left hepatic lobe cyst. The gallbladder, spleen, pancreas, and bilateral adrenal glands are unremarkable. Kidneys enhance symmetrically. Bilateral nephrolithiasis. No hydronephrosis. Stable left midpole simple renal cyst. Bladder is unremarkable. Uterus is unremarkable. Suspected left fallopian tube closure device. No adnexal lesion. No pneumoperitoneum or free fluid. The large and small bowel are normal in caliber. Normal appendix. No inflammatory changes of the GI tract. Duodenal diverticulum noted. No acute osseous abnormality. IMPRESSION: No acute finding. Bilateral nonobstructive nephrolithiasis. I have personally reviewed the images of this examination and agree with the resident's findings and interpretation. Interpreted by: Ilir Borrero Preliminary Report By: Gautam Sherwood Electronically signed By Ilir Borrero Dictated Date: 04/15/2025 4:54:27 PM Prelim Date: 04/15/2025 5:00:15 PM Sign Date: 04/15/2025 5:14:15 PM Ordering Provider: CHLOE PIZANO Interpreted by: Ilir Borrero Preliminary Report By: Gautam Sherwood Electronically signed By Ilir Borrero Dictated Date: 04/15/2025 4:54:27 PM Prelim Date: 04/15/2025 5:00:15 PM Sign Date: 04/15/2025 5:14:15 PM Ordering Provider: CHLOE PIZANO [facility]05-15-2025 Evaluation + Plan note Future Scheduled Tests Laboratory* TSH with Reflex to FT4 03/02/25 * Vitamin B12 Level 03/02/25 * Complete Blood Count 03/02/25 * Lipid Profile 03/02/25 * Complete Metabolic Panel 03/02/25 Radiology* MA Mammo Diagnostic Left w/ Dylan 04/30/25 * US Breast Left Complete 04/30/25 [facility] 05-15-2025 Evaluation + Plan note Future Scheduled Tests Laboratory* TSH with Reflex to FT4 03/02/25 * Vitamin B12 Level 03/02/25 * Complete Blood Count 03/02/25 * Lipid Profile 03/02/25 * Complete Metabolic Panel 03/02/25 [facility] 04-27-2025 Note. MICRO - Microbiology PROCEDURE: Urine Culture [*1] SOURCE: Urine, Clean Catch BODY SITE: COLLECTED DATE/TIME: 02/10/2025 16:55 EDT RECEIVED DATE/TIME: 02/11/2025 13:16 EDT START DATE/TIME: 02/11/2025 13:16 EDT FREE TEXT SOURCE: FINAL REPORTS Final Report [] Verified Date/Time/Personnel: 02/12/2025 14:51 EDT <10,000 cfu/ml. No Significant growth. Sensitivity not indicated. PRELIMINARY REPORTS Preliminary Report [] Verified Date/Time/Personnel: 02/11/2025 13:59 EDT Specimen received in lab. Performing Locations *1: This test was performed at: [address], [address] , [facility]03-18-2025 Radiology Diagnostic study note [facility] Imaging Services [address] [place] [id number] CTA Abd/Pelvis W/WO Contrast MR#: [id number] Acct: [id number] Name: ASLHEY GOODE Rep #: [id number] : 1970 F 54 From: Ulises Ziegler MD PCP: Dr. Dov Meade, DO Status: REG ER Study:CTA Abd/Pelvis W/WO Contrast Date of Ex am: 01/03/25 Exam# [id number] Ordering Dr: Amanda Marks PROCEDURE: CTA ABD/PELVIS W/WO CONTRAST REASON FOR EXAM: R FLANK PAIN, ATTENTION R KIDNEY TECHNIQUE: CTA of the abdomen and pelvis with contrast with coronal and sagittal reformatted images IV CONTRAST: 100 cc Isovue 370 COMPARISON: None. FINDINGS: Dependent basilar atelectasis. The liver, gallbladder, adrenal glands, pancreas and spleen appear within limits. Symmetric appearing nephrograms without perinephric stranding. Incidental left renal cyst noted. A couple nonobstructing right intrarenal stones. There is mild asymmetric prominence of the right renal collecting system compared to the left. No peripelvic stranding or evidence of urothelial thickening/enhancement identified. No ureteral or bladder stoneseen. Again noted is reimplantation of the right ureter at the right dome of the bladder. The bladder appears within limits. Abdominal aorta appears within limits without aneurysm or dissection. The celiac, SMA and MOIZ fill with contrast as expected. Left renal artery appears within limits. Right renal artery appears within limits. An accessory right upper pole renal artery from the aorta is identified. The renal veins appear within limits. No adenopathy identified. No bowel dilation or free air. Normal caliber appendix without secondary signs. The uterus/adnexa appear within limits. No free fluid seen. Visualized osseous structures appear within limits. CT/CTA Abd/Pelvis W/WO Contrast IMPRESSION: Symmetric appearing nephrograms without perinephric stranding. Incidental left renal cyst noted. A couple nonobstructing right intrarenal stones. There is mild asymmetric prominence of the right renal collecting system compared to the left. No peripelvic stranding or evidence of urothelial thickening/enhancement identified. No ureteral or bladder stoneseen. Again noted is reimplantation of the right ureter at the right dome of the bladder. Right renal artery appears within limits. An accessory right upper pole renal artery from the aortais identified. The renal veins appear within limits. One or more dose reduction techniques were used (e.g., Automated exposure control, adjustment of the mA and/or kV according to patient size, use of iterative reconstruction technique). Reading Location: [id number] CC: Dr. Dov Meade DO; RICCARDO Chicas ~ Line Fixer: Signed [facility]03-18-2025 Radiology Diagnostic study note [facility] Imaging Services [address] [place] [address] Abdomen/Pelvis without Cont MR#: [id number] Acct: [id number] Name: ASHLEY GOODE Rep #: [id number] : 1970 F 54 From: Juana Garvin MD PCP: Dr. Dov Meade DO Status: REG ER Study:Abdomen/Pelvis without Cont Date of Exa m: 01/03/25 Exam# [id number] Ordering Dr: Amanda Marks PROCEDURE: ABDOMEN/PELVIS WITHOUT CONT 01/03/2025 REASON FOR EXAM: R FLANK PAIN TECHNIQUE: CT abdomen and pelvis was performed without IV contrast. Coronal and sagittal reformats were generated. PATIENT PREPARATION: Per protocol ORAL CONTRAST TYPE: None. CONTRAST: None. One or more dose reduction techniques were used (e.g., Automated exposure control, adjustment of the mA and/or kV according to patient size, use of iterative reconstruction technique. RADIATION DOSE SUMMARY: CTDlvol: 20.93 mGy DLP: 1024.86 mGycm COMPARISON: 03/15/2022 FINDINGS: Note that evaluation of the abdominopelvic viscera, vasculature, and remaining soft tissues is limited in the absence of IV contrast. Lung bases: Mild atelectasis/scarring. Similar RIGHT lower lobe cyst. Liver: Similar small LEFT lobe cyst. Spleen: Unremarkable. Gallbladder: Unremarkable. Pancreas: Unremarkable. Adrenals: Unremarkable. Kidneys: Redemonstrated nonobstructing intrarenal calculi bilaterally, up to 3 mm on the RIGHT. Operative changes of RIGHT ureteral reimplantation on the anterior RIGHT bladder dome. No hydronephrosis or ureteral calculus identified. Similar exophytic LEFT renal cyst. Bowel: Unremarkable. Normal caliber appendix. Lymph nodes: Unremarkable. Vasculature: Mild calcific atherosclerosis. Peritoneum: Unremarkable. Bladder: As above. Otherwise underdistended and suboptimally evaluated, grosslyunremarkable. Reproductive Organs: Unremarkable. Body Wall: Tiny fat containing umbilical hernia.. Bones: Unremarkable. CT/Abdomen/Pelvis without Cont IMPRESSION: 1. No acute noncontrast findings. No hydronephrosis or ureteral calculus identified. 2. Additional description as above. Reading Location: [id number] CC: Dr. Dov Meade DO; RICCARDO Chicas ~ Line Fixer: Signed [facility]02-21-2025 Note* Exam Date Time Procedure Performing Provider Status 12/09/24 2:[address] Spine Cervical w/o Contrast EPI ROMANO MD; Auth (Verified) [id number] ORIGINAL EXAMINATION: CT OF THE CERVICAL SPINE WITHOUT CONTRAST 12/09/2024 2:36 pm TECHNIQUE: CT of the cervical spine was performed without the administration of intravenous contrast. Multiplanar reformatted images are provided for review. Automated exposure control, iterative reconstruction, and/or weight based adjustment of the mA/kV was utilized to reduce the radiation dose to as low as reasonably achievable. COMPARISON: None. HISTORY: ORDERING SYSTEM PROVIDED HISTORY: Reason for Exam: fall at home, loss of consciousness 12/07 with dizziness. Neck pain worse FINDINGS: BONES/ALIGNMENT: There is C5-C6-C7 ACDF with plate, vertebral body screws, intervertebral cages. The hardware is grossly intact. There is lucency circumscribing the vertebral body screws at C6 and C7, and the left screw at C5 which may be compatible with loosening. There is 5 mm anterior translation of the plate at C7 level, with a gap between the plate and anterior vertebral body. The superior plate remains apposed to the anterior C5 vertebral body. There is no acute vertebral compression fracture or dislocation of the cervical spine. DEGENERATIVE CHANGES: C2-C3: There is no significant disc protrusion, spinal canal stenosis or neural foraminal narrowing. C3-C4: There is no significant disc protrusion, spinal canal stenosis or neural foraminal narrowing. C4-C5: There is 2 mm disc protrusion. There is no central canal or neuroforaminal stenosis. C5-C6: There is partially obscuring metallic streak artifact. There is no osseous central canal stenosis. There is mild-moderate uncovertebral and facet hypertrophy. There is mild left neuroforaminal stenosis. C6-C7: There is partially obscuring metallic streak artifact. There is no gross osseous central canal stenosis. There is mild-moderate uncovertebral and facet hypertrophy. There is mild-moderate right neuroforaminal stenosis. There is moderate-severe left neuroforaminal stenosis. C7-T1: There is no significant disc protrusion, spinal canal stenosis or neural foraminal narrowing. SOFT TISSUES: There is no prevertebral soft tissue swelling. There is partially obscuring metallic streak artifact. Epiglottis is normal in thickness. Thyroid gland is normal size. Trachea is patent. Esophagus is normal in caliber. There are small cervical nodes. IMPRESSION: 1. C5-C6-C7 ACDF. There is lucency circumscribing the vertebral body screws at C6 and C7, and the left screw at C5 which may be compatible with loosening. There is 5 mm anterior translation of the plate at C7 level, with a gap between the inferior plate and anterior vertebral body. The superior plate remains apposed to the anterior C5 vertebral body. 2. No acute vertebral compression fracture or dislocation of the cervical spine. 3. Degenerative changes as described above. Interpreted by: Epi Romano Preliminary Report By: Epi Romano Electronically signed By Epi Romano Dictated Date: 12/09/2024 3:56:25 PM Prelim Date: 12/09/2024 4:16:52 PM Sign Date: 12/09/2024 4:16:52 PM Ordering Provider: [facility]02-21-2025 Note* Exam Date Time Procedure Performing Provider Status 12/09/24 2:[address] Head or Brain w/o Contrast Sarah RUTLEDGE MD; Auth (Verified) [id number] ORIGINAL HISTORY: Fall COMPARISON: 08 April 2020 TECHNIQUE: Routine noncontrast head CT, with sagittal and coronal reconstructions. This exam was performed according to our departmental dose optimization program, and includes the following measures where applicable: automated exposure control, adjustment of the mAs and/or kVp according to patient size and/or exam, and an iterative reconstruction algorithm. FINDINGS: The ventricles and sulci are normal in size and configuration. There are no abnormal intra or extra-axial fluid collections. Rob-white matter differentiation is maintained. The calvaria and the bones of the base of the skull are intact. IMPRESSION: Normal examination. Interpreted by: Hollie Rutledge MD Preliminary Report By: Hollie Rutledge MD Electronically signed By Hollie Rutledge MD Dictated Date: 12/09/2024 3:00:24 PM Prelim Date: 12/09/2024 3:01:14 PM Sign Date: 12/09/2024 3:01:14 PM Ordering Provider: [facility]01-10-2025 Evaluation note* Diagnosis Onset Date Resolution Status Admit Date Plantar fascial fibromatosis acute October 28, 2024 8:43am [facility] Work Phone: [phone]) 631-306601-08-2025 Note* Exam Date Time Procedure Performing Provider Status 10/26/24 8:31 AM US Breast Left Limited TINY REYES MD; Auth (Verified) [id number] ORIGINAL FROM: [address] [address] PROCEDURE FOR: ASHLEY Valencia[address] [place] [address] [place] [address] Home: PID#: [id number] Exam#: [id number] : 1970 Age: 54 TO: DOV MEADE D.O. [address] [place] [address] [place] [address] Fax: NO FAX EXAMINATION: ULTRASOUND OF THE LEFT BREAST 10/26/2024 8:19 am TECHNIQUE: Color flow and rob scale targeted ultrasound of the left breast at 12 o'clock were performed. Permanently stored images were reviewed. COMPARISON: Left breast ultrasound 04/19/2024, mammogram 04/15/2024, January 22, 2015 HISTORY: ORDERING SYSTEM PROVIDED HISTORY: Reason for Exam: abnormal mammogram FINDINGS: In the left breast at 12 o'clock, 4 cm from the nipple, there is a 2.4 cm oval cyst with a thin internal septation, likely a complicated cyst. This is stable and does not demonstrate any abnormal vascularity. No additional sonographic abnormalities are identified. IMPRESSION: Mass likely representing a stable complicated cyst in the left breast at 12 o'clock 4 cm from the nipple and is probably benign. A 6 month follow up left breast ultrasound is recommended to demonstrate stability. The patient will be due for bilateral annual mammography at that time, which should be requested as a bilateral diagnostic mammogram and left breast ultrasound. John Garzazick risk calculations, generated with the history provided, report this patient's 10 year risk and lifetime risk for developing breast cancer at 3.2% and 12.2%, respectively. Based on this assessment tool, if the patient's calculated lifetime risk is below 20%, then the patient is considered at average risk for developing breast cancer. If the patient's calculated lifetime risk is at or above 20%, then the patient is considered high risk for developing breast cancer and may be a candidate for supplemental breast MRI screening in addition to annual mammographic screening per the [employer]. I have personally reviewed the images of this examination and agree with the resident's findings and interpretation. BIRADS: BI-RADS: 3: Probably Benign RECALL: 6 month follow-up RECALL TYPE: Mammo+US LETTER SENT: Probably Benign BI-RADS 3 Interpreted by: Tiny Reyes Preliminary Report By: Clay Momin Electronically signed By Tiny Reyes Dictated Date: 10/26/2024 8:39:52 AM Prelim Date: 10/26/2024 9:45:53 AM Sign Date: 10/26/2024 9:45:53 AM Ordering Provider: DOV MEADE CLINICAL: 6 MONTH FOLLOW-UP. Huc: AMNA ESTES RT,RDMS,RVT,RDCS letter sent: Probably Benign BI-RADS 3 Ultrasound BI-RADS: 3 Probably benign [facility]05-10-2024 Hospital Discharge instructions Patient Education 02/26/2024 11:55:07 Anterior Cervical Diskectomy and Fusion, Care After Anterior Cervical Diskectomy and Fusion, Care After This sheet gives you information about how to care for yourself after your procedure. Your health care provider may also give you more specific instructions. If you have problems or questions, contact your health care provider. What can I expect after the procedure? After the procedure, it is common to have: Neck pain. Discomfort when swallowing. Slight hoarseness. Follow these instructions at home: If you have a neck brace: Wear it as told by your health care provider. Remove it only as told by your health care provider. Keep the brace clean and dry. Ask your health care provider if you should remove the brace to bathe or shower. Incision care Follow instructions from your health care provider about how to take care of your incision. Make sure you: ?Wash your hands with soap and water before and after you change your bandage (dressing). If soap and water are not available, use hand camouflage assembler. ?Change your dressing as told by your health care provider. ?Leave stitches (sutures), skin glue, or adhesive strips in place. These skin closures may need to stay in place for 2 weeks or longer. If adhesive strip edges start to loosen and curl up, you may trim the loose edges. Do not remove adhesive strips completely unless your health care provider tells you to do that. Check your incision area every day for signs of infection. Check for: ?Redness, swelling, or pain. ?Fluid or blood. ?Warmth. ?Pus or a bad smell. Managing pain, stiffness, and swelling Take acrn-vxw-envtjqg and prescription medicines only as told by your health care provider. If directed, put ice on the injured area. ?If you have a removable brace, remove it as told by your health care provider. ?Put ice in a plastic bag. ?Place a towel between your skin and the bag. ?Leave the ice on for 20 minutes, 2 3 times a day. Activity Return to your normal activities as told by your health care provider. Ask your health care provider what activities are safe for you. Do exercises as told by your health care provider. Do not take baths, swim, or use a hot tub until your health care provider approves. Do not lift anything that is heavier than 10 lb (4.5 kg), or the limit that you are told, until your health care provider says that it is safe. General instructions Ask your health care provider if the medicine prescribed to you: ?Requires you to avoid driving or using heavy machinery. ?Can cause constipation. You may need to take actions to prevent or treat constipation, such as: ?Drink enough fluid to keep your urine pale yellow. ?Take ddad-lbi-vvapskx or prescription medicines. ?Eat foods that are high in fiber, such as beans, whole grains, and fresh fruits and vegetables. ?Limit foods that are high in fat and processed sugars, such as fried and sweet foods. Do not use any products that contain nicotine or tobacco, such as cigarettes, e- cigarettes, and chewing tobacco. These can delay healing. If you need help quitting, ask your health care provider. Keep all follow-up visits and physical therapy appointments as told by your health care provider. This is important. Contact a health care provider if you have: A fever. Redness, swelling, or pain around your incision. Fluid or blood coming from your incision. Pus or a bad smell coming from your incision. Pain that is not controlled by your pain medicine. Increasing hoarseness or trouble swallowing. Get help right away if you have: Severe pain. Sudden numbness or weakness in your arms. Warmth, tenderness, or swelling in your calf. Chest pain. Difficulty breathing. Summary After the procedure, it is common to have neck pain, discomfort when swallowing, and slight hoarseness. Follow instructions from your health care provider about how to take care of your incision. Check your incision area every day for signs of infection. Return to your normal activities as told by your health care provider. Ask your health care provider what activities are safe for you. Contact a health care provider if you have signs of infection at your incision. This information is not intended to replace advice given to you by your health care provider. Make sure you discuss any questions you have with your health care provider. Document Released: 10/31/2016 Document Revised: 06/30/2019 Document Reviewed: 06/30/2019 [employer] Patient Education 2020 [employer]. 02/26/2024 11:55:06 Anterior Cervical Diskectomy and Fusion Anterior Cervical Diskectomy and Fusion Anterior cervical diskectomy and fusion is a surgery to remove and replace an intervertebral disk. Intervertebral disks are plates of cartilage located between the bones of the spine. This surgery isdone when an intervertebral disk in the neck puts pressure on the spine or on a nerve. The surgery is done through the front (anterior) part of the neck. During the surgery, the damaged disk is removed and replaced with a plastic implant, a bone from another part of the body (bone graft), or both. Sometimes metal plates and screws (hardware) are also put in the neck to help keep the implant or bone graft in place and to allow the bones to grow together (fuse). Tell a health care provider about: Any allergies you have. All medicines you are taking, including vitamins, herbs, eye drops, creams, and jtol-vem-perzwuh medicines. Any problems you or family members have had with anesthetic medicines. Any blood disorders you have. Any surgeries you have had. Any medical conditions you have or have had. Whether you are or may be . What are the risks? Generally, this is a safe procedure. However, problems may occur, including: Infection. Bleeding, which can sometimes require a blood transfusion. Injury to surrounding structures, including nerves. Leakage of fluid from the brain or spinal cord (cerebrospinal fluid). Blood clots. Temporary breathing difficulties. What happens before the procedure? Medicines Ask your health care provider about: Changing or stopping your regular medicines. This is especially important if you are taking diabetes medicines or blood thinners. Taking medicines such as aspirin and ibuprofen. These medicines can thin your blood. Do not take these medicines unless your health care provider tells you to take them. Taking dxzn-qal-ofqvmyv medicines, vitamins, herbs, and supplements. Staying hydrated Follow instructions from your health care provider about hydration, which may include: Up to 2 hours before the procedure you may continue to drink clear liquids, such as water, clear fruit juice, black coffee, and plain tea. Eating and drinking Follow instructions from your health care provider about eating and drinking, which may include: 8 hours before the procedure stop eating heavy meals or foods, such as meat, fried foods, or fatty foods. 6 hours before the procedure stop eating light meals or foods, such as toast or cereal. 6 hours before the procedure stop drinking milk or drinks that contain milk. 2 hours before the procedure stop drinking clear liquids. General instructions Do not use any products that contain nicotine or tobacco for at least 4 weeks before the procedure.These products include cigarettes, e-cigarettes, and chewing tobacco. If you need help quitting, ask your health care provider. Ask your health care provider: ?How your surgery site will be marked. ?What steps will be taken to help prevent infection. These may include: ?Removing hair at the surgery site. ?Washing skin with a germ-killing soap. ?Receiving antibiotic medicine. What happens during the procedure? An IV will be inserted into one of your veins. You will be given one or more of the following: ?A medicine to help you relax (sedative). ?A medicine to make you fall asleep (general anesthetic). A breathing tube will be placed. Your neck will be cleaned with a germ-killing solution (antiseptic solution). Your surgeon will make an incision in the front of your neck. Your neck muscles will be spread apart. The damaged disk and any damaged bone will be removed. The area where the disk was removed will be filled with a small plastic implant, a bone graft, or both. Hardware may be put in your neck. The incision will be closed with stitches (sutures). Adhesive strips or skin glue may be placed across the incision. A bandage (dressing) will be applied over the incision. The procedure may vary among health care providers and hospitals. What happens after the procedure? Your blood pressure, heart rate, breathing rate, and blood oxygen level will be monitored until youleave the hospital or clinic. You will be monitored for any signs of complications from the procedure, such as: ?Too much bleeding from the incision site. ?A buildup of blood under your skin at the surgical site. ?Difficulty breathing. You may continue to receive antibiotics. You can start to eat as soon as you feel comfortable. You may be given a neck brace to wear. This brace limits your neck movement while your bones are fusing. Do not drive for 24 hours if you were given a sedative during your procedure. Summary Anterior cervical diskectomy and fusion is a surgery to remove and replace an intervertebral disk. The surgery is done through the front (anterior) part of the neck. Before the procedure, follow instructions from your health care provider about changing or stoppingyour medicines and about eating and drinking. During the procedure, the damaged disk and any damaged bone will be removed. After the procedure, you will be monitored for any signs of complications from the procedure. You may be given a neck brace to wear. This brace limits your neck movement while your bones are fusing. This information is not intended to replace advice given to you by your health care provider. Make sure you discuss any questions you have with your health care provider. Document Released: 09/23/2010 Document Revised: 06/30/2019 Document Reviewed: 06/30/2019 [employer] Patient Education 2020 [employer]. Follow Up Care 01/20/2024 07:35:22 With:UCHE RUBIN DO, Orthopedic Address: [address] [place] [address], [address] [facility] [place] [address]- [phone] When:03/16/2024 09:30:00 Comments:This is your post-op appointment. Follow-up as scheduled. [facility] 05-10-2024 Note Discharge Instructions Thank you for allowing [facility] to assist you with your healthcare needs. The following is importantdischarge information regarding your hospital visit. Your Care Team DOV MEADE JEFFERY D.O. Your Diagnosis Cervical spondylosis Chronic kidney disease, stage 3a GERD (gastroesophageal reflux disease) Major depressive disorder, recurrent What to do next Instructions From Your Doctor Activity: Do not drive, smoke, operate machinery, return to work, or engage in activities that require you aylin alert when taking narcotics, pain relievers or muscle relaxants No reaching overhead Do not turn your head from side to side, turn your upper body Wear both DIXON hose continuously for 6 weeks Remove during shower time and replaced with a clean pair Wash with soap and water, then hang dry for next use No heavy lifting, pulling, or pushing more than 10 pounds for 3 months Must wear your cervical collar at all times Call Dr. Rubin office if: You have any difficulty breathing, swallowing, or swelling of your throat You have a sore throat that does not go away with ice chips, lozenges, pain meds etc. You fall at home, call immediately You experience numbness and/or tingling in your arms or legs that is changed or increased after discharge You develop chills, and/or fever greater than 100 degrees You have drainage from your incision, especially bloody or thick yellow You have increased redness or swelling around the incision You have severe or continued headaches, especially if no headaches were present in the hospital You start having increased pain that is not relieved by your medicine You run out of pain medication Care for your incision: Never put anything on your incision, no creams lotions or antibiotic ointment No hot tubs, swimming, or soaking in water for 6 weeks, or until your incision is healed To shower, cover your incision with a 4 x 4, Tegaderm dressing, and you must wear your cervical collar Change the dressing to your neck daily using a dry 4 x 4 and tape Wear your bone growth stimulator if given 1 daily as instructed If you need to shave using electric razor, do not tilt your head back or shave over the incision General reminders: Do not take any medications, herbal, prescription, or bpxw-ipy-azjvnov unless prescribed for the next 12 weeks Remember to take your pain medication and/or muscle relaxants as ordered to keep your pain under control No NSAIDs for 3 months, will interfere with the fusion. Swelling around the nerves can cause continued numbness and tingling for days or weeks after surgery Scheduled Follow-Up Appointments Appointment Type When With Where Contact InformationPC OV 02/29/2024 03:00 PM EDT DOV MEADE DO [facility] [address] [address] [place] Mammogram Screening Bilateral w/ Dylan 04/15/2024 09:00 AM EDT [facility] [phone] Follow Up Appointments Follow Up with UCHE RUBIN DO, Orthopedic When 03/16/2024 09:30 AM EDT Why: This is your post-op appointment. Follow-up as scheduled. Where: [address] [place] [address], [address] [facility] [place] [address]- [phone] Allergies Demerol HCl (Rash) morphine (Rash) Medications Please ask your primary doctor or pharmacist before taking any other medication not listed, including over the counter drugs, herbal medications, vitamins and or supplements as they may interact withyour home medications. What How Much When Why Instructions Last Dose Unchanged acetaminophen- hydrocodone (Brewer 325- 5 mg oral tablet) 1 tab(s) by mouth Every 6 hours as needed for for pain Cervical spondylosis Duration: 7 Days Pickup at [employer][id number] Unchanged esomeprazole (esomeprazole 20 mg oral delayed release capsule) 1 cap by mouth Once a day before a meal GERD (gastroesophageal reflux disease) Long-term current use of proton pump inhibitor therapy Unchanged herbal/ nutritional product (Probiotic) 1 capsule by mouth Every day Unchanged herbal/ nutritional product (turmeric 500 mg oral capsule) See instructions 1 cap(s) Oral Daily Unchanged nitrofurantoin (nitrofurantoin macrocrystals 100 mg oral capsule) TAKE 1 CAPSULE BY MOUTH EVERY DAY AT BEDTIME WITH FOOD Unchanged traZODone (traZODone 100 mg oral tablet) 2 tab(s) by mouth Daily at bedtime Unchanged venlafaxine (Effexor XR 75 mg oral capsule, extended release) 1 cap by mouth Once a day Pharmacy Information [facility] #[id number]: [address], [place] [id number] [phone] What How Much When Comments Stop Taking estradiol (estradiol 2 mg oral tablet) 1 tab(s) by mouth Once a day Duration: 90 Days Stop Taking ibuprofen (ibuprofen 200 mg oral tablet) 2 tab(s) by mouth Every 6 hours as needed for pain or fever Stop Taking medroxyPROGESTERone (medroxyPROGESTERone 5 mg oral tablet) 1 tab(s) by mouth Every day Stop Taking medroxyPROGESTERone (Provera 5 mg oral tablet) 1 tab(s) by mouth Every day Please take this list to your next doctor s visit. Bring all medications you take, including over the counter medications, herbals and other supplements with you to your doctor s visit. Patients and families are reminded to discard old lists and to update any records with all medication providers or retail pharmacies. Medication Leaflets acetaminophen and oxycodone (a SEET a MIN oh eric and OX estrella BARRON done) Endocet 10/325, Endocet 2.5/325, Endocet 5/325, Endocet 7.5/325, Nalocet, Percocet, Prolate What is the most important information I should know about acetaminophen and oxycodone? MISUSE OF OPIOID MEDICINE CAN CAUSE ADDICTION, OVERDOSE, OR . Keep the medication in a place where others cannot get to it. Taking opioid medicine during may cause life-threatening withdrawal symptoms in the . Fatal side effects can occur if you use opioid medicine with alcohol, or with other drugs that cause drowsiness or slow your breathing. Stop taking this medicine and call your doctor right away if you have skin redness or a rash that spreads and causes blistering and peeling. What is acetaminophen and oxycodone? Acetaminophen and oxycodone is a combination medicine used to relieve moderate to severe pain. Acetaminophen and oxycodone contains an opioide medicine and may be habit-forming. Acetaminophen and oxycodone may also be used for purposes not listed in this medication guide. What should I discuss with my healthcare provider before taking acetaminophen and oxycodone? You should not use this medicine if you are allergic to acetaminophen or oxycodone, or if you have: severe asthma or breathing problems; or a blockage in your stomach or intestines. Tell your doctor if you have ever had: breathing problems, sleep apnea; liver disease; a drug or alcohol addiction; kidney disease; a head injury or seizures; urination problems; or problems with your thyroid, pancreas, or gallbladder. If you use opioid medicine while you are , your baby could become dependent on the drug. This can cause life-threatening withdrawal symptoms in the baby after it is born. Babies born dependent on opioids may need medical treatment for several weeks. Ask a doctor before using opioid medicine if you are . Tell your doctor if you notice severe drowsiness or slow breathing in the nursing baby. How should I take acetaminophen and oxycodone? Follow all directions on your prescription label. Never take this medicine in larger amounts, or for longer than prescribed. An overdose can damage your liver or cause . Tell your doctor if you feel an increased urge to use more of this medicine. Never share opioid medicine with another person, especially someone with a history of drug abuse oraddiction. MISUSE CAN CAUSE ADDICTION, OVERDOSE, OR . Keep the medicine in a place where others cannot get to it. Selling or giving away opioid medicine is against the law. Measure liquid medicine carefully. Use the dosing syringe provided, or use a medicine dose-measuring device (not a kitchen spoon). If you need surgery or medical tests, tell the doctor ahead of time that you are using this medicine. You should not stop using this medicine suddenly. Follow your doctor's instructions about tapering your dose. Store at room temperature away from moisture and heat. Keep track of your medicine. You should be aware if anyone is using it improperly or without a prescription. Do not keep leftover opioid medication. Just one dose can cause in someone using this medicine accidentally or improperly. Ask your pharmacist where to locate a drug take-back disposal program.If there is no take-back program, flush the unused medicine down the toilet. What happens if I miss a dose? Since this medicine is used for pain, you are not likely to miss a dose. Skip any missed dose if itis almost time for your next dose. Do not use two doses at one time. What happens if I overdose? Seek emergency medical attention or call the Poison Help line at . An overdose of this medicine can be fatal, especially in a child or other person using the medicine without a prescription. Overdose symptoms may include nausea, vomiting, sweating, severe drowsiness, pinpoint pupils, slow breathing, or no breathing. Your doctor may recommend you get naloxone (a medicine to reverse an opioid overdose) and keep it with you at all times. A person caring for you can give the naloxone if you stop breathing or don't wake up. Your caregiver must still get emergency medical help and may need to perform CPR (cardiopulmonary resuscitation) on you while waiting for help to arrive. Anyone can buy naloxone from a pharmacy or local health department. Make sure any person caring foryou knows where you keep naloxone and how to use it. What should I avoid while taking acetaminophen and oxycodone? Avoid driving or operating machinery until you know how this medicine will affect you. Dizziness ordrowsiness can cause falls, accidents, or severe injuries. Do not drink alcohol. Dangerous side effects or could occur. Ask a doctor or pharmacist before using any other medicine that may contain acetaminophen (sometimes abbreviated as APAP). Taking certain medications together can lead to a fatal overdose. What are the possible side effects of acetaminophen and oxycodone? Get emergency medical help if you have signs of an allergic reaction: hives; difficulty breathing; swelling of your face, lips, tongue, or throat. Opioid medicine can slow or stop your breathing, and may occur. A person caring for you should give naloxone and/or seek emergency medical attention if you have slow breathing with long pauses,blue colored lips, or if you are hard to wake up. In rare cases, acetaminophen may cause a severe skin reaction that can be fatal. This could occur even if you have taken acetaminophen in the past and had no reaction. Stop taking this medicine and call your doctor right away if you have skin redness or a rash that spreads and causes blistering andpeeling. Call your doctor at once if you have: noisy breathing, sighing, shallow breathing, breathing that stops; a light-headed feeling, like you might pass out; weakness, tiredness, fever, unusual bruising or bleeding; confusion, unusual thoughts or behavior; problems with urination; liver problems--nausea, upper stomach pain, tiredness, loss of appetite, dark urine, sedrick-colored stools, jaundice (yellowing of the skin or eyes); low cortisol levels-- nausea, vomiting, loss of appetite, dizziness, worsening tiredness or weakness; or high levels of serotonin in the body--agitation, hallucinations, fever, sweating, shivering, fast heart rate, muscle stiffness, twitching, loss of coordination, nausea, vomiting, diarrhea. Serious breathing problems may be more likely in older adults and in those who are debilitated or have wasting syndrome or chronic breathing disorders. Common side effects include: dizziness, drowsiness, feeling tired; feelings of extreme happiness or sadness; nausea, vomiting, stomach pain; constipation; or headache. This is not a complete list of side effects and others may occur. Call your doctor for medical advice about side effects. You may report side effects to FDA at 9-847-STI-9814. What other drugs will affect acetaminophen and oxycodone? You may have breathing problems or withdrawal symptoms if you start or stop taking certain other medicines. Tell your doctor if you also use an antibiotic, antifungal medication, heart or blood pressure medication, seizure medication, or medicine to treat HIV or hepatitis C. Opioid medication can interact with many other drugs and cause dangerous side effects or . Be sure your doctor knows if you also use: cold or allergy medicines, bronchodilator asthma/COPD medication, or a diuretic ('water pill'); medicines for motion sickness, irritable bowel syndrome, or overactive bladder; other opioids--opioid pain medicine or prescription cough medicine; a sedative like Valium--diazepam, alprazolam, lorazepam, Xanax, Klonopin, Versed, and others; drugs that make you sleepy or slow your breathing--a sleeping pill, muscle relaxer, medicine to treat mood disorders or mental illness; drugs that affect serotonin levels in your body--a stimulant, or medicine for depression, Parkinson's disease, migraine headaches, serious infections, or nausea and vomiting. This list is not complete. Other drugs may affect acetaminophen and oxycodone, including prescription and hjgh-dzj-tqemqol medicines, vitamins, and herbal products. Not all possible interactions are listed here. Where can I get more information? Your doctor or pharmacist can provide more information about acetaminophen and oxycodone. Remember, keep this and all other medicines out of the reach of children, never share your medicines with others, and use this medication only for the indication prescribed. Every effort has been made to ensure that the information provided by [employer]. ('[employer]') is accurate, up-to-date, and complete, but no guarantee is made to that effect. Drug information contained herein may be time sensitive. [employer] information has been compiled for use by healthcare practitioners and consumers in the [place] and therefore [employer] does not warrant that uses outside of the [place] are appropriate, unless specifically indicated otherwise. [employer] drug information does not endorse drugs, diagnose patients or recommend therapy. [employer] drug information isan informational resource designed to assist licensed healthcare practitioners in caring for their p atients and/or to serve consumers viewing this service as a supplement to, and not a substitute for, the expertise, skill, knowledge and judgment of healthcare practitioners. The absence of a warningfor a given drug or drug combination in no way should be construed to indicate that the drug or drug combination is safe, effective or appropriate for any given patient. [employer] does not assume any responsibility for any aspect of healthcare administered with the aid of information [employer] provides. The information contained herein is not intended to cover all possible uses, directions, precautions, warnings, drug interactions, allergic reactions, or adverse effects. If you have questions about the drugs you are taking, check with your doctor, nurse or pharmacist. Copyright 4155-7877 [employer]. Version: 22.. Revision Date: 05/21/2023. Education Materials Anterior Cervical Diskectomy and Fusion, Care After This sheet gives you information about how to care for yourself after your procedure. Your health care provider may also give you more specific instructions. If you have problems or questions, contact your health care provider. What can I expect after the procedure? After the procedure, it is common to have: Neck pain. Discomfort when swallowing. Slight hoarseness. Follow these instructions at home: If you have a neck brace: Wear it as told by your health care provider. Remove it only as told by your health care provider. Keep the brace clean and dry. Ask your health care provider if you should remove the brace to bathe or shower. Incision care Follow instructions from your health care provider about how to take care of your incision. Make sure you: ? Wash your hands with soap and water before and after you change your bandage (dressing). If soap and water are not available, use hand camouflage assembler. ? Change your dressing as told by your health care provider. ? Leave stitches (sutures), skin glue, or adhesive strips in place. These skin closures may need to stay in place for 2 weeks or longer. If adhesive strip edges start to loosen and curl up, you may trim the loose edges. Do not remove adhesive strips completely unless your health care provider tells you to do that. Check your incision area every day for signs of infection. Check for: ? Redness, swelling, or pain. ? Fluid or blood. ? Warmth. ? Pus or a bad smell. Managing pain, stiffness, and swelling Take gehf-hbb-pkfmbnm and prescription medicines only as told by your health care provider. If directed, put ice on the injured area. ? If you have a removable brace, remove it as told by your health care provider. ? Put ice in a plastic bag. ? Place a towel between your skin and the bag. ? Leave the ice on for 20 minutes, 2 3 times a day. Activity Return to your normal activities as told by your health care provider. Ask your health care provider what activities are safe for you. Do exercises as told by your health care provider. Do not take baths, swim, or use a hot tub until your health care provider approves. Do not lift anything that is heavier than 10 lb (4.5 kg), or the limit that you are told, until your health care provider says that it is safe. General instructions Ask your health care provider if the medicine prescribed to you: ? Requires you to avoid driving or using heavy machinery. ? Can cause constipation. You may need to take actions to prevent or treat constipation, such as: ? Drink enough fluid to keep your urine pale yellow. ? Take tcep-tsg-frjbgwg or prescription medicines. ? Eat foods that are high in fiber, such as beans, whole grains, and fresh fruits and vegetables. ? Limit foods that are high in fat and processed sugars, such as fried and sweet foods. Do not use any products that contain nicotine or tobacco, such as cigarettes, e- cigarettes, and chewing tobacco. These can delay healing. If you need help quitting, ask your health care provider. Keep all follow-up visits and physical therapy appointments as told by your health care provider. This is important. Contact a health care provider if you have: A fever. Redness, swelling, or pain around your incision. Fluid or blood coming from your incision. Pus or a bad smell coming from your incision. Pain that is not controlled by your pain medicine. Increasing hoarseness or trouble swallowing. Get help right away if you have: Severe pain. Sudden numbness or weakness in your arms. Warmth, tenderness, or swelling in your calf. Chest pain. Difficulty breathing. Summary After the procedure, it is common to have neck pain, discomfort when swallowing, and slight hoarseness. Follow instructions from your health care provider about how to take care of your incision. Check your incision area every day for signs of infection. Return to your normal activities as told by your health care provider. Ask your health care provider what activities are safe for you. Contact a health care provider if you have signs of infection at your incision. This information is not intended to replace advice given to you by your health care provider. Make sure you discuss any questions you have with your health care provider. Document Released: 10/31/2016 Document Revised: 06/30/2019 Document Reviewed: 06/30/2019 [employer] Patient Education 2020 [employer] Anterior Cervical Diskectomy and Fusion Anterior cervical diskectomy and fusion is a surgery to remove and replace an intervertebral disk. Intervertebral disks are plates of cartilage located between the bones of the spine. This surgery isdone when an intervertebral disk in the neck puts pressure on the spine or on a nerve. The surgery is done through the front (anterior) part of the neck. During the surgery, the damaged disk is removed and replaced with a plastic implant, a bone from another part of the body (bone graft), or both. Sometimes metal plates and screws (hardware) are also put in the neck to help keep the implant or bone graft in place and to allow the bones to grow together (fuse). Tell a health care provider about: Any allergies you have. All medicines you are taking, including vitamins, herbs, eye drops, creams, and qovf-qes-xgmnlce medicines. Any problems you or family members have had with anesthetic medicines. Any blood disorders you have. Any surgeries you have had. Any medical conditions you have or have had. Whether you are or may be . What are the risks? Generally, this is a safe procedure. However, problems may occur, including: Infection. Bleeding, which can sometimes require a blood transfusion. Injury to surrounding structures, including nerves. Leakage of fluid from the brain or spinal cord (cerebrospinal fluid). Blood clots. Temporary breathing difficulties. What happens before the procedure? Medicines Ask your health care provider about: Changing or stopping your regular medicines. This is especially important if you are taking diabetes medicines or blood thinners. Taking medicines such as aspirin and ibuprofen. These medicines can thin your blood. Do not take these medicines unless your health care provider tells you to take them. Taking moie-akc-icvkhwg medicines, vitamins, herbs, and supplements. Staying hydrated Follow instructions from your health care provider about hydration, which may include: Up to 2 hours before the procedure you may continue to drink clear liquids, such as water, clear fruit juice, black coffee, and plain tea. Eating and drinking Follow instructions from your health care provider about eating and drinking, which may include: 8 hours before the procedure stop eating heavy meals or foods, such as meat, fried foods, or fatty foods. 6 hours before the procedure stop eating light meals or foods, such as toast or cereal. 6 hours before the procedure stop drinking milk or drinks that contain milk. 2 hours before the procedure stop drinking clear liquids. General instructions Do not use any products that contain nicotine or tobacco for at least 4 weeks before the procedure.These products include cigarettes, e-cigarettes, and chewing tobacco. If you need help quitting, ask your health care provider. Ask your health care provider: ? How your surgery site will be marked. ? What steps will be taken to help prevent infection. These may include: ? Removing hair at the surgery site. ? Washing skin with a germ-killing soap. ? Receiving antibiotic medicine. What happens during the procedure? An IV will be inserted into one of your veins. You will be given one or more of the following: ? A medicine to help you relax (sedative). ? A medicine to make you fall asleep (general anesthetic). A breathing tube will be placed. Your neck will be cleaned with a germ-killing solution (antiseptic solution). Your surgeon will make an incision in the front of your neck. Your neck muscles will be spread apart. The damaged disk and any damaged bone will be removed. The area where the disk was removed will be filled with a small plastic implant, a bone graft, or both. Hardware may be put in your neck. The incision will be closed with stitches (sutures). Adhesive strips or skin glue may be placed across the incision. A bandage (dressing) will be applied over the incision. The procedure may vary among health care providers and hospitals. What happens after the procedure? Your blood pressure, heart rate, breathing rate, and blood oxygen level will be monitored until youleave the hospital or clinic. You will be monitored for any signs of complications from the procedure, such as: ? Too much bleeding from the incision site. ? A buildup of blood under your skin at the surgical site. ? Difficulty breathing. You may continue to receive antibiotics. You can start to eat as soon as you feel comfortable. You may be given a neck brace to wear. This brace limits your neck movement while your bones are fusing. Do not drive for 24 hours if you were given a sedative during your procedure. Summary Anterior cervical diskectomy and fusion is a surgery to remove and replace an intervertebral disk. The surgery is done through the front (anterior) part of the neck. Before the procedure, follow instructions from your health care provider about changing or stoppingyour medicines and about eating and drinking. During the procedure, the damaged disk and any damaged bone will be removed. After the procedure, you will be monitored for any signs of complications from the procedure. You may be given a neck brace to wear. This brace limits your neck movement while your bones are fusing. This information is not intended to replace advice given to you by your health care provider. Make sure you discuss any questions you have with your health care provider. Document Released: 09/23/2010 Document Revised: 06/30/2019 Document Reviewed: 06/30/2019 Elsevier Patient Education 2020 [employer] Additional Information VACCINATE! IT SAVES LIVES! Members of the community who have not yet received the COVID-19 vaccine and would like to receive it can visit one of [facility] vaccine clinics. There are many vaccine clinic locations within the [facility]. For locations and available times, please visit [email or web address].[email or web address] It is important to note that some COVID mobile vaccine clinics are held outdoors and may be canceled in rainy or stormy conditions. To learn more about pediatric vaccinations (ages 5-11), we invite you to visit the [employer] webpage. [email or web address]/[email or web address] [email or web address] learn more about the COVID-19 vaccine, we invite you to visit the CDC website for a list of frequently asked questions.https://www.cdc.gov/coronavirus/2019-ncov/vaccines/faq.html [employer] Patient Portal Access Instructions: Stay connected with your healthcare team and access your personal medical information anytime with the [employer] Patient Portal. Please follow the directions below to create your [employer] account: 1.Access the email account you provided upon registration to the hospital/physician office.2.Look for an invitation email from [facility].3.Open the email and access the invitation link: AcceptInvitation to [employer].4.Fill in the required diaz to create your account. To access your account, visit [employer]. Click the blue button labeled Access Patient Portal and then log in with the username and password that you created in the steps above. You will be able to view your test results, lab results, a summary of your visits, upcoming appointments and more. There is also a convenient messaging option where you can send secure messages to your p rovider. In addition, you will have the ability to download any documents or summaries to your computer and/or send the information securely to a physician. Remember that your healthcare information is confidential, so carefully consider who you will allowto register on the [facility] Patient Portal for access to your information. You can also access the [facility] Patient Portal on the [facility] nely. Simply click on Patient Portal and then log into your account. If you would like to receive a full copy of your medical records, please contact the [facility] Medical Records Department by calling [phone], Thursday through Thursday between 8 a.m. and 4:30 p.m. HOW TO SAFELY DISPOSE OF PRESCRIPTION MEDICATIONS Please use one of the following methods to safely dispose of your unused medications. 1.Use a drug disposal kit: the drug disposal pouch allows you to safely discard your old and unuseddrugs. Ask your nurse to give you one when you are discharged.2.Visit a local take-back location: Many local pharmacies and police departments have programs that collect old and unwanted prescriptiondrugs. Call your local pharmacy or go to http://iKoa/0Z6Aa5r to find one close to you.3.Make use of household items: Use cat litter or old coffee grounds to dispose medications if other options arenot available. Mix your drugs with these household products, seal them in an airtight container andthrow it into the garbage. Call [facility]: [phone] to be sure your drugs can be disposed of in this way. Some medicines may require a different approach.4.Never flush your medications down the toilet. IF YOU HAVE BEEN PRESCRIBED AN OPIOID FOR PAIN If you have been prescribed an opioid (such as hydrocodone, oxycodone or morphine), it is critical to understand the possible side effects and risks of opioid pain medications. Even when taken as directed, opioids can have several side effects including: Tolerance, meaning you might need to take more of a medication for the same pain relief. Nausea, vomiting and/or constipation. Sleepiness, dizziness, dry mouth, confusion, depression or itching. Physical dependence, meaning you have withdrawal symptoms when a medication is stopped, can develop within a few days. KNOW YOUR RESPONSIBILITIES It is important to know exactly how much and how often to take the opioid pain medications you are prescribed. Never take opioids in higher amounts or more often than prescribed. Do not combine opioids with alcohol or other drugs that cause drowsiness, such as benzodiazepines, also known as benzos, including diazepam and alprazolam, muscle relaxants or sleep aids. Never sell or share prescription opioids. This is illegal. Store opioids in a secure place and out of reach of others (including children, family, friends and visitors). The last page of this document has been signed and retained as a CHART COPY. Signatures Patient Education Materials Anterior Cervical Diskectomy and Fusion, Care After Anterior Cervical Diskectomy and Fusion Medication Leaflets Percocet 5 mg-325 mg oral tablet My discharge plan and instructions have been reviewed and explained to me and I,ASHLEY GOODE understand my current condition and have read and understand these discharge instructions. I have received a written copy of the plan/instructions. If I have questions, I am aware that I should contact my doctor. 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 Family's history: negative. Review of Systems Ear/Nose/Mouth/Throat: Negative except as documented in history of present illness. Respiratory: Negative except as documented in history of present illness. Cardiovascular: Negative except as documented in history of present illness. Gastrointestinal: Negative except as documented in history of present illness. Genitourinary: Negative except as documented in history of present illness. Endocrine: Negative except as documented in history of present illness. Musculoskeletal: Negative except as documented in history of present illness. Integumentary: Negative except as documented in history of present illness. Neurologic: Negative except as documented in history of present illness. Health Status Allergies: Allergic Reactions (Selected) Severity Not Documented Demerol HCl- Rash. Morphine- Rash., Allergies (2) ActiveReaction Demerol HClRash morphineRash Current medications: (Selected) Inpatient Medications Ordered Benadryl: 25 mg, 0.5 mL, IV Push, q6h, PRN: Itching Benadryl: 25 mg, 1 tab(s), Oral, q6h, PRN: Itching Cepacol Sore Throat lozenge: 1 lozenge(s), Oral, q2h, PRN: Sore throat Colace: 100 mg, 1 cap(s), Oral, BID Effexor XR: 75 mg, 1 cap(s), Oral, qDay Fleet Enema: 133 mL, Rectal, qDay, PRN: Constipation Macrobid: 100 mg, 1 cap(s), Oral, qHS Milk of Magnesia: 30 mL, Oral, Daily Pepcid: 20 mg, 1 tab(s), Oral, qDay Percocet 325/5: 1 tab(s), Oral, q4h, PRN: Pain, scale 4-6 Percocet 325/5: 2 tab(s), Oral, q4h, PRN: Pain, scale 7-10 Senokot S: 2 tab(s), Oral, BID Transderm-Scop 1 mg/72 hr transdermal film, extended release: 1 patch(es), Transdermal, q72h, PRN: Nausea/Vomiting Tylenol: 650 mg, 2 tab(s), Oral, q4h, PRN: TEMP greater than 38.6 degrees Celsius Tylenol: 650 mg, 2 tab(s), Oral, q4h, PRN: Temperature greater than 38.6 degrees C Zofran: 4 mg, 2 mL, IV Push, q8h, PRN: Nausea cyclobenzaprine: 10 mg, 1 tab(s), Oral, TID, PRN: Muscle spasm medroxyPROGESTERone 2.5 mg oral tablet: 5 mg, 2 tab(s), Oral, Daily morphine: 4 mg, 1 mL, IV Push, q4h, PRN: Pain, scale 7-10 scopolamine (Transderm-Scop Patch REMOVAL): 1 EA, Miscellaneous, q72h traMADol: 100 mg, 2 tab(s), Oral, q6h, PRN: Pain, scale 7-10 traZODone: 200 mg, 4 tab(s), Oral, qHS Prescriptions Prescribed Effexor XR 75 mg oral capsule, extended release: 75 mg, 1 cap(s), Oral, qDay, 90 cap(s), 1 Refill(s) Brewer 325- 5 mg oral tablet: 1 tab(s), Oral, q6h, for 7 day(s), PRN: for pain, 28 tab(s), 0 Refill(s) esomeprazole 20 mg oral delayed release capsule: 20 mg, 1 cap(s), Oral, qDayAC, 90 cap(s), 3 Refill(s) traZODone 100 mg oral tablet: 200 mg, 2 tab(s), Oral, qHS, 180 tab(s), 1 Refill(s) Documented Medications Documented Probiotic: 1 capsule, Oral, Daily, 0 Refill(s) nitrofurantoin macrocrystals 100 mg oral capsule: TAKE 1 CAPSULE BY MOUTH EVERY DAY AT BEDTIME WITHFOOD turmeric 500 mg oral capsule: See Instructions, 1 cap(s) Oral Daily, 0 Refill(s), Medications (22) Active Scheduled: (9) docusate sodium 100 mg Capsule 100 mg 1 cap(s), Oral, BID docusate-senna (Senokot S) 50 mg-8.6 mg Tablet 2 tab(s), Oral, BID famotidine 20 mg tablet 20 mg 1 tab(s), Oral, qDay magnesium hydroxide 8% Suspension 30 mL UD 30 mL, Oral, Daily medroxyprogesterone 2.5 mg Tablet 5 mg 2 tab(s), Oral, Daily nitrofurantoin macrocrystals-MONOHYDRATE 100 mg Capsule 100 mg 1 cap(s), Oral, qHS Transderm-Scop patch REMOVAL 1 EA, Miscellaneous, q72h traZODONE 50 mg Tablet 200 mg 4 tab(s), Oral, qHS venlafaxine 75 mg ER capsule 75 mg 1 cap(s), Oral, qDay Continuous: (0) PRN: (13) acetaminophen 325 mg Tablet 650 mg 2 tab(s), Oral, q4h acetaminophen 325 mg Tablet 650 mg 2 tab(s), Oral, q4h acetaminophen-OXYcodone 325 mg-5 mg Tablet 2 tab(s), Oral, q4h acetaminophen-OXYcodone 325 mg-5 mg Tablet 1 tab(s), Oral, q4h benzocaine-menthol (Cepacol Sore Throat) 15 mg-3.6mg lozenge 1 lozenge(s), Oral, q2h cyclobenzaprine 10 mg Tablet 10 mg 1 tab(s), Oral, TID diphenhydramine 25 mg tablet 25 mg 1 tab(s), Oral, q6h diphenhyDRAMINE 50 mg/mL (1 mL) INJ 25 mg 0.5 mL, IV Push, q6h morphine 4 mg/mL 1mL INJ 4 mg 1 mL, IV Push, q4h ondansetron 2 mg/ 1 mL 2 mL INJ 4 mg 2 mL, IV Push, q8h scopolamine 1.5 mg (1 mg / 72 hours patch) 1 patch(es), Transdermal, q72h sodium biphosphate-sodium phosphate 19 gm-7 gm Enema 133 mL, Rectal, qDay tramadol 50 mg Tablet 100 mg 2 tab(s), Oral, q6h Problem list: Medical At risk for colon cancer / SNOMED CT 154503853 / Confirmed Somatic dysfunction of cervical region / SNOMED CT 6924996043 / Confirmed Chronic kidney disease, stage 3a / SNOMED CT 1253476732 / Confirmed Degenerative disc disease, cervical / SNOMED CT 405735327 / Confirmed Fatigue / SNOMED CT 823250105 / Confirmed GERD (gastroesophageal reflux disease) / SNOMED CT 626078651 / Confirmed Insomnia / SNOMED CT 693933468 / Confirmed IBS (irritable bowel syndrome) / SNOMED CT 67804511 / Confirmed Long-term current use of proton pump inhibitor therapy / SNOMED CT 9177671476 / Confirmed Hot flashes due to menopause / SNOMED CT 900557211 / Confirmed Strain of muscle of multiple sites / SNOMED CT 33138168 / Confirmed Neck pain / SNOMED CT 356349040 / Confirmed Knee pain, bilateral / SNOMED CT 9352495936 / Confirmed Right shoulder pain / SNOMED CT 3285759248 / Confirmed Postmenopausal HRT (hormone replacement therapy) / SNOMED CT 735551810 / Confirmed Major depressive disorder, recurrent / SNOMED CT 012748713 / Confirmed Frequent UTI / SNOMED CT 651261257 / Confirmed Renal calculi / SNOMED CT [id number] / Confirmed Somatic dysfunction of lower extremity / SNOMED CT 3911108835 / Confirmed Somatic dysfunction of lumbar region / SNOMED CT 5227554239 / Confirmed Somatic dysfunction of pelvic region / SNOMED CT 2251567319 / Confirmed Somatic dysfunction of rib region / SNOMED CT 0726372571 / Confirmed Somatic dysfunction of sacral region / SNOMED CT 7597784343 / Confirmed Somatic dysfunction of thoracic region / SNOMED CT 1917386717 / Confirmed Resolved: Lumbago of lumbar region with sciatica / SNOMED CT 661732390 Resolved: Spasm of thoracic back muscle / SNOMED CT 5041481843 Resolved: Suspected COVID-19 virus infection / SNOMED CT 8975532095 Resolved: UTI (urinary tract infection) / SNOMED CT [id number] Canceled: Acute maxillary sinusitis / SNOMED CT 611277736 Canceled: Moderate recurrent major depression / SNOMED CT 537637393, Active Problems (25) At risk for colon cancer Chronic kidney disease, stage 3a Degenerative disc disease, cervical Fatigue Frequent UTI GERD (gastroesophageal reflux disease) Hot flashes due to menopause IBS (irritable bowel syndrome) Insomnia Knee pain, bilateral Long-term current use of proton pump inhibitor therapy Major depressive disorder, recurrent Neck pain Postmenopausal HRT (hormone replacement therapy) Renal calculi Right shoulder pain Somatic dysfunction of cervical region Somatic dysfunction of lower extremity Somatic dysfunction of lumbar region Somatic dysfunction of pelvic region Somatic dysfunction of rib region Somatic dysfunction of sacral region Somatic dysfunction of thoracic region Strain of muscle of multiple sites TIA (transient ischemic attack) Histories Past Medical History: Resolved UTI (urinary tract infection) ([id number]): Resolved. Lumbago of lumbar region with sciatica (041466990): Resolved. Spasm of thoracic back muscle (6508242919): Resolved. Suspected COVID-19 virus infection (0793597255): Resolved. Family History: Diabetes mellitus Father Asthma Daughter Stroke Father Diabetes Father Colon cancer Mother Procedure history: H/O: tubal ligation (468033044). Dilation and curettage of uterus (00793085). Ovarian cystectomy (7772183002). Cystoscopy (6037348268). section (10515479). Comments: 02/11/2024 11:37 EDT - Emeli Tran RN x2 Elbow ([id number]). Comments: 02/11/2024 11:39 EDT - Emeli Tran RN bilateral Kidney ([id number]). Comments: 02/24/2024 14:07 THAT Snow Carney RN stones Discectomy (5965724). Ureter ([id number]). Comments: 02/24/2024 14:08 Snow Sapp RN right side bipas Social History: Social & Psychosocial Habits Alcohol 4Risk Assessment: Denies Alcohol Use 02/25/2024 Use: Current Frequency: 1-2 times per month Comment: Occ - 07/12/2020 13:59 - Jenni Mendoza LPN Substance Abuse 4Risk Assessment: Denies Substance Abuse 02/25/2024 Use: Never Tobacco 02/25/2024 Tobacco Use: Never (less than 100 in l Comment: No Tobacco/Smoke Exposure - 06/02/2019 07:29 - Tasia Hutchison CMA 4Risk Assessment: Denies Tobacco Use Home/Environment 02/25/2024 Living situation: Home with assistance Domestic Concerns None Primary Quality Supervisor: [facility] Special Services and Community Resources None Marital Status of Patient if Patient Independent Adult: Unmarried Nutrition/Health 02/25/2024 Type of diet: Regular Caffeine intake amount: None Appetite Good Eating Difficulties None Physical Examination Vital Signs 02/26/2024 5:57 EDT Temperature Oral 36.7 DegC Heart Rate Monitored 102 bpm HI Respiratory Rate 16 br/min Systolic Blood Pressure Non-Invasive 112 mmHg Diastolic Blood Pressure Non-Invasive 75 mmHg 02/25/2024 23:13 EDT Temperature Oral 36.7 DegC Heart Rate Monitored 106 bpm HI Respiratory Rate 16 br/min Systolic Blood Pressure Non-Invasive 131 mmHg Diastolic Blood Pressure Non-Invasive 81 mmHg 02/25/2024 20:21 EDT Heart Rate Monitored 114 bpm HI 02/25/2024 19:07 EDT Temperature Oral 37.0 DegC Heart Rate Monitored 107 bpm HI Respiratory Rate 16 br/min Systolic Blood Pressure Non-Invasive 92 mmHg Diastolic Blood Pressure Non-Invasive 53 mmHg LOW 02/25/2024 15:23 EDT Temperature Oral 37.6 DegC HI Heart Rate Monitored 104 bpm HI Respiratory Rate 16 br/min Systolic Blood Pressure Non-Invasive 133 mmHg Diastolic Blood Pressure Non-Invasive 81 mmHg 02/25/2024 11:13 EDT Temperature Oral 36.6 DegC Heart Rate Monitored 104 bpm HI Respiratory Rate 16 br/min Systolic Blood Pressure Non-Invasive 123 mmHg Diastolic Blood Pressure Non-Invasive 83 mmHg 02/25/2024 7:17 EDT Temperature Oral 36.5 DegC Heart Rate Monitored 101 bpm HI Respiratory Rate 16 br/min Systolic Blood Pressure Non-Invasive 112 mmHg Diastolic Blood Pressure Non-Invasive 64 mmHg 02/25/2024 3:34 EDT Temperature Oral 36.8 DegC Peripheral Pulse Rate 108 bpm HI Respiratory Rate 16 br/min Systolic Blood Pressure Non-Invasive 112 mmHg Diastolic Blood Pressure Non-Invasive 66 mmHg Vital Signs(last 24 hrs) Last Charted Temp Oral36.7 DegC (FEBRUARY 25 05:57) Heart Rate MonitoredH 102bpm (FEBRUARY 25 05:57) MLN615 mmHg (FEBRUARY 25 05:57) DBP75 mmHg (FEBRUARY 25 05:57) Pain assessment: Pain Assessment 02/26/2024 8:54 EDT Primary Pain Intensity 8 Pain Scale Type 0-10 Pain scale 02/26/2024 5:42 EDT Primary Pain Intensity 10 02/25/2024 22:04 EDT Pain Scale Assessment 0-10 Pain scale Primary Pain Location Neck Primary Pain Intensity 8 02/25/2024 21:04 EDT Primary Pain Intensity 10 02/25/2024 20:21 EDT Primary Pain Intensity 10 Pain Scale Type 0-10 Pain scale 02/25/2024 12:05 EDT Pain Scale Assessment 0-10 Pain scale Primary Pain Location Neck Primary Pain Intensity 10 Pain Scale Type 0-10 Pain scale 02/25/2024 10:33 EDT Primary Pain Location Neck Primary Pain Intensity 9 Primary Pain Aggravating Factors Swallowing Pain Scale Type 0-10 Pain scale 02/25/2024 5:27 EDT Primary Pain Location Neck Primary Pain Laterality Bilateral Primary Pain Intensity 7 Primary Pain Aggravating Factors Swallowing Pain Scale Type 0-10 Pain scale 02/25/2024 1:30 EDT Primary Pain Location Neck Primary Pain Laterality Bilateral Primary Pain Intensity 10 Pain Scale Type 0-10 Pain scale 02/25/2024 0:30 EDT Pain Scale Assessment 0-10 Pain scale Primary Pain Location Neck Primary Pain Laterality Bilateral Primary Pain Intensity 10 Pain Scale Type 0-10 Pain scale . General: Alert and oriented. Airway: Normal neck range of motion. Mallampati classification: II (soft palate, fauces, uvula visible). Head: Normocephalic. Dentition Evaluation: Intact, Own teeth. Neck: Full range of motion. Respiratory: Lungs are clear to auscultation. Cardiovascular: Normal rate. Heart Sounds: Normal. Gastrointestinal: Soft. Musculoskeletal Normal range of motion. Integumentary: Intact, Warm, Dry. Neurologic: Alert, Oriented. Review / Management Results review: Labs (Last four charted values) WBC 10.5(FEBRUARY 25)H 13.2(FEBRUARY 23) Hgb 12.7(FEBRUARY 25)12.4(FEBRUARY 23) Hct 37.2(FEBRUARY 25)L 36.1(FEBRUARY 23) Plt 283(FEBRUARY 25)261(FEBRUARY 23) Na 139(FEBRUARY 25)L 134(FEBRUARY 23) K 4.2(FEBRUARY 25)4.2(FEBRUARY 23) CO2 28(FEBRUARY 25)26(FEBRUARY 23) Cl 101(FEBRUARY 25)100(FEBRUARY 23) Cr 0.94(FEBRUARY 25)0.96(FEBRUARY 23) BUN 11(FEBRUARY 25)10(FEBRUARY 23) Glucose H 116(FEBRUARY 25)H 128(FEBRUARY 23) Ca 9.0(FEBRUARY 25)8.4(FEBRUARY 23) , Lab results 02/26/2024 9:08 EDT Hand Right 02/24/2024 20 gauge Peripheral IV Activity: Assessed Peripheral IV Dressing Condition: Clean, Dry, Intact Peripheral IV Dressing Activity: Transparent dressing Peripheral IV Line Status/Patency: Flushes easily Peripheral IV Site Condition: No complications Peripheral IV Equipment: PRN Adaptor Antecubital Left 20 gauge Peripheral IV Activity: Assessed Peripheral IV Dressing Condition: Clean, Dry, Intact Peripheral IV Dressing Activity: Transparent dressing Peripheral IV Line Status/Patency: Flushes easily Peripheral IV Site Condition: No complications Peripheral IV Equipment: PRN Adaptor 02/26/2024 9:00 EDT medroxyPROGESTERone Not Done: Med Not Available (Not Done) 02/26/2024 8:54 EDT Primary Pain Intensity 8 Pain Scale Type 0-10 Pain scale Nail Bed Color [place] Capillary Refill < 2 seconds Dorsalis Pedis Pulse, Left 2+ Normal Dorsalis Pedis Pulse, Right 2+ Normal Radial Pulse, Left 2+ Normal Radial Pulse, Right 2+ Normal Respirations Unlabored Respiratory Pattern Regular All Lobes Breath Sounds Clear Abdomen Description Non-distended, Symmetric, Soft Abdomen Palpation Non-Tender, Soft Passing Flatus Yes Bowel Continence Continent Swallowing Disorder None Bowel Sounds All Quadrants Present Genitourinary Symptoms Voiding with difficulties Facial Movement Symmetric resting/crying All Extremity Description [place] Skin Temperature Warm Temperature All Extremities Warm Skin Description [place], Normal for ethnicity, Dry Skin Integrity Not intact Skin Turgor Elastic Mucous Membrane Color [place] Mucous Membrane Description Moist Sensory Perception Ez Slightly limited Moisture Ez Rarely moist Activity Ez Walks occasionally Mobility Ez Slightly limited Nutrition Ez Probably inadequate Friction and Shear Ez Potential problem Ez Score 17 Hospital Acquired Pressure Injury Risk Low risk (score 15-18) Neck Anterior Skin Abnormality Type: Surgical incision Incision, Wound Dressing/Activity: Assessed Incision, Wound Dressing Assessment: Clean, Dry, Intact Incision, Wound Dressing: Gauze dressing Wound Exudate Amount: None Neurological Language Able to speak clearly Gait Steady Extremity Movement Equal Swallowing Difficulty Pills, Solids Characteristics of Communication Appropriate Characteristics of Speech Clear Facial Symmetry Symmetric Level of Consciousness Alert Aspiration Risk Difficulty swallowing pills, Difficulty swallowing solids Strength All Extremities Moderate Tone All Extremities Normal Sensation All Extremities Intact Left Upper Extremity Sensation Intact Right Upper Extremity Sensation Intact Left Lower Extremity Sensation Intact Right Lower Extremity Sensation Intact Estes Screen Daily History of Fall in Last 3 Months Estes No Presence of Secondary Diagnosis Estes Yes Use of Ambulatory Aid Estes None, bedrest, wheelchair, nurse IV/PRN Adapter Fall Risk Estes Yes Gait Weak or Impaired Fall Risk Estes Normal, bedrest, immobile Mental Status Fall Risk Estes Oriented to own ability Estes Fall Risk Score 35 Violence Risk Confused No Violence Risk Irritable No Violence Risk Boisterous No Violence Risk Verbal Threats No Violence Risk Physical Threats No Violence Risk Attacking Objects No Violence Risk Predictor Score 0 Violence Risk Intervention None Violence Risk Current Interventions None Affect/Behavior Appropriate, Calm, Cooperative Orientation Oriented x 4 Orientation Assessment Oriented x 4 Memory Recall Ability Current season Activity Status ADL Awake, Resting, Watching TV Standard Safety ID band on, Allergy Band on, Call device within reach, Bed in low position, Wheels locked, Upper/Half-Length side-rails up, Phone within reach, personal items within reach, Assistive devices within reach, Safety level maintained, Non-Slip footwear High Risk Safety Identified as high risk, Fall ID band on, Room located near nursing station, Bed alert on, Door open, Bathroom light on, Non-Slip footwear, Room check performed Demonstrates Correct Call Light Use Yes Appetite Good Eating Difficulties None 02/26/2024 7:54 EDT Patient Participation in Treatment Cooperative IS Volume Achieved 450 mL IS Times performed 10 IS Patient Effort Poor Oxygen Therapy Room air Oxygen Saturation 94 % 02/26/2024 6:38 EDT Oxygen Therapy Room air Oxygen Activity Room air Oxygen Flow Rate 0 02/26/2024 6:13 EDT Nurse Safety Checks q2hrs Performed 7pm-7am 02/26/2024 6:12 EDT Glucose Level 116 mg/dL HI Sodium Level 139 mmol/L Potassium Level 4.2 mmol/L Chloride 101 mmol/L CO2 28 mmol/L Electrolyte Balance 10.0 mEq/L BUN 11 mg/dL Creatinine Lvl (s) 0.94 mg/dL BUN/Creatinine Ratio 12 ratio Calcium Lvl 9.0 mg/dL GFR Non- 63 ml/min/1.73sqm NA GFR 76 ml/min/1.73sqm NA Creatinine Clearance Calc 61.09 mL/min 02/26/2024 6:10 EDT Facial Movement Symmetric resting/crying Neurological Language Able to speak clearly Gait Steady Extremity Movement Equal Swallowing Difficulty Pills, Solids Characteristics of Communication Appropriate Characteristics of Speech Clear Facial Symmetry Symmetric Aspiration Risk Difficulty swallowing pills, Difficulty swallowing solids Strength All Extremities Moderate 02/26/2024 5:57 EDT Temperature Oral 36.7 DegC Heart Rate Monitored 102 bpm HI Respiratory Rate 16 br/min Systolic Blood Pressure Non-Invasive 112 mmHg Diastolic Blood Pressure Non-Invasive 75 mmHg Oxygen Therapy Room air Oxygen Saturation 96 % 02/26/2024 5:42 EDT Primary Pain Intensity 10 Assistive Device Walker Activity Status ADL Up to bathroom, Returned to bed acetaminophen-oxycodone 2 tab(s) tab(s) 02/26/2024 5:23 EDT WBC 10.5 10^3/mcL RBC 4.17 10^6/mcL LOW Hgb 12.7 G/dL Hct 37.2 % MCV 89.1 fL MCH 30.4 pg MCHC 34.1 G/dL RDW 14.6 % HI Platelet 283 10^3/mcL MPV 10.0 fL Neutrophil % 82.0 % HI Lymphocyte % 7.3 % LOW Monocyte % 7.8 % Eosinophil % 2.5 % Basophil % 0.4 % Neutrophil, Absolute 8.6 10^3/mcL HI Lymphocyte, Absolute 0.8 10^3/mcL Monocyte, Absolute 0.8 10^3/mcL Eosinophil, Absolute 0.3 10^3/mcL Basophil, Absolute 0.0 10^3/mcL 02/26/2024 5:14 EDT Facial Movement Symmetric resting/crying Neurological Language Able to speak clearly Gait Steady Extremity Movement Equal Swallowing Difficulty Pills, Solids Characteristics of Communication Appropriate Characteristics of Speech Clear Facial Symmetry Symmetric Aspiration Risk Difficulty swallowing pills, Difficulty swallowing solids Strength All Extremities Moderate Mechanical VTE Prophylaxis Education Not Done: See ICU flow (Not Done) Mechanical VTE Prophylaxis Education Not Done: See ICU flow (Not Done) Sequential Compression Device Not Done: See ICU flow (Not Done) Antiembolism Stockings Form Not Done (Not Done) Sequential Compression Device Form Not Done (Not Done) 02/26/2024 4:06 EDT Facial Movement Symmetric resting/crying Neurological Language Able to speak clearly Gait Steady Extremity Movement Equal Swallowing Difficulty Pills, Solids Characteristics of Communication Appropriate Characteristics of Speech Clear Facial Symmetry Symmetric Aspiration Risk Difficulty swallowing pills, Difficulty swallowing solids Strength All Extremities Moderate 02/26/2024 3:15 EDT Facial Movement Symmetric resting/crying Neurological Language Able to speak clearly Gait Steady Extremity Movement Equal Swallowing Difficulty Pills, Solids Characteristics of Communication Appropriate Characteristics of Speech Clear Facial Symmetry Symmetric Aspiration Risk Difficulty swallowing pills, Difficulty swallowing solids Strength All Extremities Moderate 02/26/2024 3:10 EDT Individuals Taught Patient Learning Readiness Willing to learn Barriers to Learning None evident Teaching Method Explanation Disease Process General Education Signs/Symptoms to report Teaching Evaluation Verbalizes/Nonverbally indicates understanding Pain Medication Education Pain scale, Name, Purpose, Schedule Other Pain Alleviating Education Distraction, Repositioning Pain Teaching Evaluation Verbalizes/Nonverbally indicates understanding 02/26/2024 2:00 EDT Facial Movement Symmetric resting/crying Neurological Language Able to speak clearly Gait Steady Extremity Movement Equal Swallowing Difficulty Pills, Solids Characteristics of Communication Appropriate Characteristics of Speech Clear Facial Symmetry Symmetric Aspiration Risk Difficulty swallowing pills, Difficulty swallowing solids Strength All Extremities Moderate 02/26/2024 1:21 EDT Mechanical VTE Prophylaxis Education Not Done: See ICU flow (Not Done) Mechanical VTE Prophylaxis Education Not Done: See ICU flow (Not Done) Sequential Compression Device Not Done: See ICU flow (Not Done) Antiembolism Stockings Form Not Done (Not Done) Sequential Compression Device Form Not Done (Not Done) 02/26/2024 1:20 EDT Facial Movement Symmetric resting/crying Neurological Language Able to speak clearly Gait Steady Extremity Movement Equal Swallowing Difficulty Pills, Solids Characteristics of Communication Appropriate Characteristics of Speech Clear Facial Symmetry Symmetric Aspiration Risk Difficulty swallowing pills, Difficulty swallowing solids (Modified) Strength All Extremities Moderate 02/26/2024 0:30 EDT Facial Movement Symmetric resting/crying Neurological Language Able to speak clearly Gait Steady Extremity Movement Equal Swallowing Difficulty Pills, Solids Characteristics of Communication Appropriate Characteristics of Speech Clear Facial Symmetry Symmetric Aspiration Risk Difficulty swallowing pills, Difficulty swallowing solids Strength All Extremities Moderate 02/25/2024 23:29 EDT Facial Movement Symmetric resting/crying Neurological Language Able to speak clearly Gait Steady Extremity Movement Equal Swallowing Difficulty Pills, Solids Characteristics of Communication Appropriate Characteristics of Speech Clear Facial Symmetry Symmetric Aspiration Risk Difficulty swallowing pills, Difficulty swallowing solids Strength All Extremities Moderate 02/25/2024 23:13 EDT Temperature Oral 36.7 DegC Heart Rate Monitored 106 bpm HI Respiratory Rate 16 br/min Systolic Blood Pressure Non-Invasive 131 mmHg Diastolic Blood Pressure Non-Invasive 81 mmHg Oxygen Therapy Room air Oxygen Saturation 91 % LOW 02/25/2024 22:30 EDT Facial Movement Symmetric resting/crying Neurological Language Able to speak clearly Gait Steady Extremity Movement Equal Swallowing Difficulty Pills, Solids Characteristics of Communication Appropriate Characteristics of Speech Clear Facial Symmetry Symmetric Aspiration Risk Difficulty swallowing pills, Difficulty swallowing solids Strength All Extremities Moderate 02/25/2024 22:04 EDT Pain Scale Assessment 0-10 Pain scale Primary Pain Location Neck Primary Pain Intensity 8 Reason for PRN medication Pain management PRN medication effectiveness Partial PRN Medication Effectiveness Evaluation PRN Medication Effectiveness Evaluation 02/25/2024 21:39 EDT Facial Movement Symmetric resting/crying Neurological Language Able to speak clearly Gait Steady Extremity Movement Equal Swallowing Difficulty Pills, Solids Characteristics of Communication Appropriate Characteristics of Speech Clear Facial Symmetry Symmetric Aspiration Risk Difficulty swallowing pills, Difficulty swallowing solids Strength All Extremities Moderate 02/25/2024 21:38 EDT Mechanical VTE Prophylaxis Education Not done this session Mechanical VTE Prophylaxis Education Not done this session Sequential Compression Device bilateral knee high removed/off Reason SCD Removed/Off Patient refused Antiembolism Stocking On/Re-applied bilateral thigh high Antiembolism Stockings Form Antiembolism Stockings Form Sequential Compression Device Form Sequential Compression Device Form 02/25/2024 21:04 EDT Primary Pain Intensity 10 acetaminophen-oxycodone 2 tab(s) tab(s) docusate 100 mg mg docusate-senna 2 tab(s) tab(s) nitrofurantoin 100 mg mg traZODone 200 mg mg 02/25/2024 20:21 EDT Heart Rate Monitored 114 bpm HI Primary Pain Intensity 10 Pain Scale Type 0-10 Pain scale Nail Bed Color [place] Capillary Refill < 2 seconds Dorsalis Pedis Pulse, Left 2+ Normal Dorsalis Pedis Pulse, Right 2+ Normal Radial Pulse, Left 2+ Normal Radial Pulse, Right 2+ Normal Cardiac Rhythm Sinus tachycardia Monitoring Lead III, V1/MCL1 HI Interval 0.17 second(s) QRS Duration 0.08 second(s) QT Interval 0.31 second(s) QTc Interval 0.43 second(s) Alarms On and Functional Yes Heart Rate Alarm Set At - Low 50 Heart Rate Alarm Set At - High 120 Respirations Unlabored Respiratory Pattern Regular All Lobes Breath Sounds Clear Oxygen Therapy Room air Abdomen Description Non-distended, Symmetric, Soft Abdomen Palpation Non-Tender, Soft Bowel Sounds All Quadrants Present Urinary Elimination Voiding, no difficulties Facial Movement Symmetric resting/crying Skin Temperature Warm Skin Description [place], Normal for ethnicity Mucous Membrane Color [place] Mucous Membrane Description Moist Neck Anterior Skin Abnormality Type: Surgical incision Incision, Wound Dressing/Activity: Assessed Incision, Wound Dressing Assessment: Clean, Dry, Intact Incision, Wound Dressing: Gauze dressing Wound Exudate Amount: None Hand Right 02/24/2024 20 gauge Peripheral IV Activity: Assessed Peripheral IV Dressing Condition: Clean, Dry, Intact Peripheral IV Dressing Activity: Transparent dressing Peripheral IV Site Condition: No complications Peripheral IV Equipment: PRN Adaptor Antecubital Left 20 gauge Peripheral IV Activity: Assessed Peripheral IV Dressing Condition: Clean, Dry, Intact Peripheral IV Dressing Activity: Transparent dressing Peripheral IV Site Condition: No complications Peripheral IV Equipment: PRN Adaptor Neurological Language Able to speak clearly Gait Steady Extremity Movement Equal Swallowing Difficulty Pills, Solids Characteristics of Communication Appropriate Characteristics of Speech Clear Facial Symmetry Symmetric Level of Consciousness Alert Aspiration Risk Difficulty swallowing pills, Difficulty swallowing solids Strength All Extremities Moderate Orientation Oriented x 4 Activity Status ADL Awake, Sleeps intermittently Standard Safety ID band on, Allergy Band on, Call device within reach, Bed in low position, personal items within reach, Safety level maintained, Non-Slip footwear 02/25/2024 19:30 EDT Facial Movement Symmetric resting/crying Neurological Language Able to speak clearly Gait Steady Extremity Movement Equal Swallowing Difficulty Pills, Solids Characteristics of Communication Appropriate Characteristics of Speech Clear Facial Symmetry Symmetric Aspiration Risk Difficulty swallowing pills, Difficulty swallowing solids 02/25/2024 19:07 EDT Temperature Oral 37.0 DegC Heart Rate Monitored 107 bpm HI Respiratory Rate 16 br/min Systolic Blood Pressure Non-Invasive 92 mmHg Diastolic Blood Pressure Non-Invasive 53 mmHg LOW Oxygen Therapy Room air Oxygen Saturation 92 % LOW 02/25/2024 18:38 EDT Nurse Safety Checks q2hrs Performed 7am-7pm 02/25/2024 18:24 EDT Facial Movement Symmetric resting/crying Neurological Language Able to speak clearly Gait Steady Extremity Movement Equal Swallowing Difficulty Pills, Solids Characteristics of Communication Appropriate Characteristics of Speech Clear Facial Symmetry Symmetric Aspiration Risk Difficulty swallowing pills, Difficulty swallowing solids Strength All Extremities Moderate 02/25/2024 17:01 EDT Facial Movement Symmetric resting/crying Neurological Language Able to speak clearly Gait Steady Extremity Movement Equal Swallowing Difficulty Pills, Solids Characteristics of Communication Appropriate Characteristics of Speech Clear Facial Symmetry Symmetric Aspiration Risk Difficulty swallowing pills, Difficulty swallowing solids Strength All Extremities Moderate 02/25/2024 17:00 EDT Individuals Taught Patient Individuals Taught Patient Learning Readiness Willing to learn Learning Readiness Willing to learn Barriers to Learning None evident Barriers to Learning None evident Teaching Method Explanation Teaching Method Explanation Mechanical VTE Prophylaxis Education Purpose of Mechanical VTE Prophylaxis, Wear device at all times when in bed/chair, Always call for assistance to get out of bed, Explain the higher risk for falling, Call for assistance to re-apply device Mechanical VTE Prophylaxis Education Purpose of Mechanical VTE Prophylaxis, Wear device at all times when in bed/chair, Always call for assistance to get out of bed, Explain the higher risk for falling Teaching Evaluation Verbalizes/Nonverbally indicates understanding Teaching Evaluation Verbalizes/Nonverbally indicates understanding Pain Medication Education Pain scale, Name, Purpose, Action, Route Other Pain Alleviating Education Cold therapy, Heat therapy, Relaxation techniques, Repositioning Pain Teaching Evaluation Verbalizes/Nonverbally indicates understanding Skin Care Education Skin care Incision/Wound Education Wound care, Signs/Symptoms of skin impairment Skin/Wound Teaching Evaluation Verbalizes/Nonverbally indicates understanding Sequential Compression Device bilateral knee high applied/on Antiembolism Stocking On/Re-applied bilateral thigh high Antiembolism Stockings Form Antiembolism Stockings Form Sequential Compression Device Form Sequential Compression Device Form 02/25/2024 16:04 EDT Facial Movement Symmetric resting/crying Neurological Language Able to speak clearly Gait Steady Extremity Movement Equal Swallowing Difficulty Pills, Solids Characteristics of Communication Appropriate Characteristics of Speech Clear Facial Symmetry Symmetric Aspiration Risk Difficulty swallowing pills, Difficulty swallowing solids Strength All Extremities Moderate 02/25/2024 16:00 EDT Cardiac Rhythm Sinus tachycardia Monitoring Lead III, V1/MCL1 HI Interval 0.18 second(s) QRS Duration 0.10 second(s) QT Interval 0.32 second(s) QTc Interval 0.43 second(s) Alarms On and Functional Yes Heart Rate Alarm Set At - Low 50 Heart Rate Alarm Set At - High 120 02/25/2024 15:23 EDT Temperature Oral 37.6 DegC HI Heart Rate Monitored 104 bpm HI Respiratory Rate 16 br/min Systolic Blood Pressure Non-Invasive 133 mmHg Diastolic Blood Pressure Non-Invasive 81 mmHg Oxygen Therapy Room air Oxygen Saturation 100 % 02/25/2024 15:21 EDT Facial Movement Symmetric resting/crying Neurological Language Able to speak clearly Gait Steady Extremity Movement Equal Swallowing Difficulty Pills, Solids Characteristics of Communication Appropriate Characteristics of Speech Clear Facial Symmetry Symmetric Aspiration Risk Difficulty swallowing pills, Difficulty swallowing solids 02/25/2024 15:07 EDT Progress Note-Nurse Pain management 02/25/2024 14:55 EDT Neck Anterior Skin Abnormality Type: Surgical incision Incision, Wound Dressing/Activity: Assessed Incision, Wound Dressing Assessment: Clean, Dry, Intact Incision, Wound Dressing: Gauze dressing Wound Exudate Amount: None 02/25/2024 14:52 EDT benzocaine-menthol topical 1 lozenge(s) lozenge(s) 02/25/2024 14:00 EDT Facial Movement Symmetric resting/crying Neurological Language Able to speak clearly Gait Steady Extremity Movement Equal Swallowing Difficulty Pills, Solids Characteristics of Communication Appropriate Characteristics of Speech Clear Facial Symmetry Symmetric Aspiration Risk Difficulty swallowing pills, Difficulty swallowing solids Strength All Extremities Moderate 02/25/2024 13:49 EDT Emesis Count 0 EA Stool Count 0 EA Urine Count 3 EA 02/25/2024 13:47 EDT Facial Movement Symmetric resting/crying Neurological Language Able to speak clearly Gait Steady Extremity Movement Equal Swallowing Difficulty Pills, Solids Characteristics of Communication Appropriate Characteristics of Speech Clear Facial Symmetry Symmetric Aspiration Risk Difficulty swallowing pills, Difficulty swallowing solids 02/25/2024 13:46 EDT Individuals Taught Patient Individuals Taught Patient Learning Readiness Willing to learn Learning Readiness Willing to learn Barriers to Learning None evident Barriers to Learning None evident Teaching Method Explanation Teaching Method Explanation Mechanical VTE Prophylaxis Education Purpose of Mechanical VTE Prophylaxis, Wear device at all times when in bed/chair, Always call for assistance to get out of bed, Explain the higher risk for falling, Call for assistance to re-apply device Mechanical VTE Prophylaxis Education Purpose of Mechanical VTE Prophylaxis, Wear device at all times when in bed/chair, Always call for assistance to get out of bed, Explain the higher risk for falling Teaching Evaluation Verbalizes/Nonverbally indicates understanding Teaching Evaluation Verbalizes/Nonverbally indicates understanding Sequential Compression Device bilateral knee high applied/on Antiembolism Stocking On/Re-applied bilateral thigh high Antiembolism Stockings Form Antiembolism Stockings Form Sequential Compression Device Form Sequential Compression Device Form 02/25/2024 12:06 EDT Facial Movement Symmetric resting/crying Neurological Language Able to speak clearly Gait Steady Extremity Movement Equal Swallowing Difficulty Pills, Solids Characteristics of Communication Appropriate Characteristics of Speech Clear Facial Symmetry Symmetric Aspiration Risk Difficulty swallowing pills, Difficulty swallowing solids [place] Yes Strength All Extremities Moderate 02/25/2024 12:05 EDT Pain Scale Assessment 0-10 Pain scale Primary Pain Location Neck Primary Pain Intensity 10 Pain Scale Type 0-10 Pain scale Reason for PRN medication Pain management PRN medication effectiveness No PRN Medication Effectiveness Evaluation PRN Medication Effectiveness Evaluation 02/25/2024 12:00 EDT magnesium hydroxide Not Done: Patient Refused (Not Done) 02/25/2024 11:28 EDT Facial Movement Symmetric resting/crying Neurological Language Able to speak clearly Gait Steady Extremity Movement Equal Swallowing Difficulty Pills, Solids Characteristics of Communication Appropriate Characteristics of Speech Clear Facial Symmetry Symmetric Aspiration Risk Difficulty swallowing pills, Difficulty swallowing solids [place] Yes Strength All Extremities Moderate 02/25/2024 11:13 EDT Temperature Oral 36.6 DegC Heart Rate Monitored 104 bpm HI Respiratory Rate 16 br/min Systolic Blood Pressure Non-Invasive 123 mmHg Diastolic Blood Pressure Non-Invasive 83 mmHg Oxygen Therapy Room air Oxygen Saturation 94 % 02/25/2024 10:46 EDT OT Interval End Date 02/25/2024 OT Interval Start Date 02/25/2024 OT Intensity Discontinue OT Anticipated Treatments Discontinued Dear Physician Thank you for your Therapy referral. Below is the patient information for the statedinterval of treatment. Please review, modify (if necessary), sign. Thank you. OT Plan Certification Letter Inpatient OT Certification Letter 02/25/2024 10:45 EDT Rehabilitation Potential Good PT Problem List Ambulation deficits, Bed mobility deficits, Pain limiting function PT Frequency Every day PT Anticipated Treatments Bed mobility training, Gait training, Stair training, Transfer training PT Patient/Caregiver Goal home with friend support PT Bed Mobility Goal Independent PT Bed Mobility Goal Time Frame 3 day(s) PT Transfer Goal Independent PT Transfer Device Goal Front wheeled walker PT Transfer Goal Time Frame 3 day(s) PT Ambulation Goal Independent PT Ambulation Device Goal None PT Ambulation Goal Time Frame 3 day(s) PT Certification Interval End 03/04/2024 Dear Physician Thank you for your Therapy referral. Below is the patient information for the statedinterval of treatment. Please review, modify (if necessary), sign. Thank you. PT Certification Interval Start 02/25/2024 PT Plan Certification Letter Inpatient PT Certification Letter 02/25/2024 10:40 EDT Left Upper Extremity Range of Motion Within functional limits Right Upper Extremity Range of Motion Within functional limits Number of Stairs-Inside Stairs 7-8 Rail-Inside Stairs Rail on right going up Number of Stairs-Outside Stairs 0 Location Bed 2nd floor Location Main Bathroom 2nd floor OT Toilet Transfers IND Information Obtained From Patient Current History Current History Past Medical History Past Medical History Falls In Last 6 Months 0 Worker's Comp Patient No OT Supine to Sit IND OT Sit to Supine IND OT Sit to Stand IND OT Stand to Sit IND OT Bed to/from Chair IND Put On Take Off Upper Body Clothing None (4) Put On Take Off Lower Body Clothing None (4) Bathing? None (4) Toileting? None (4) Take Care Of Personal Grooming None (4) Eating Meals None (4) OT Therapy Recommended after Discharge No OT Intensity Discontinue OT Initiate/Continue Treatment No OT Tx Plan/Goals Established w Patient Yes Therapy Pain Location Neck Therapy Pain Quality Aching Therapy Pain Intensity 9 Static Sitting Independent Dynamic Sitting Independent Static Standing Independent Dynamic Standing Independent OT Evaluation Charge Low complexity Occupational Therapy Initial Eval Form Occupational Therapy Initial Eval Form Occupational Therapy Progress Note OT Initial Evaluation 02/25/2024 10:33 EDT Primary Pain Location Neck Primary Pain Intensity 9 Primary Pain Aggravating Factors Swallowing Pain Scale Type 0-10 Pain scale acetaminophen-oxycodone 2 tab(s) tab(s) 02/25/2024 10:23 EDT Basic Command Following Intact Strength-LLE Within functional limits Strength-RLE Within functional limits Left Ankle Dorsiflexion Strength 4+ Left Ankle Plantarflexion Strength 4+ Right Ankle Dorsiflexion Strength 4+ Right Ankle Plantarflexion Strength 4+ Left Lower Extremity Range of Motion Within functional limits Right Lower Extremity Range of Motion Within functional limits Number of Stairs-Inside Stairs 7-8 Rail-Inside Stairs Rail on right going up Number of Stairs-Outside Stairs 0 Location Bed 2nd floor Location Main Bathroom 2nd floor Bed Mobility Supine to Sit Min A Bed Mobility Sit to Supine Min A Transfer Sit to Stand Min A Transfer Stand to Sit Min A Ambulation Distance 2 25 ft Ambulation Level Supervised Ambulation Distance 80 ft Ambulation Quality Ambulation Quality Information Obtained From Patient Current History Current History Past Medical History Past Medical History Worker's Comp Patient No PT Problem List Ambulation deficits, Bed mobility deficits, Pain limiting function Turning Over In Bed A Little (3) Sit Down/Stand Up From Chair with Arms A Little (3) Move From Back To Sit On Bedside A Lot (2) Moving To And From Bed To Chair A Little (3) Need To Walk In Hospital Room A Little (3) Climbing 3-5 Steps With A Railing A Little (3) PT Therapy Recommended after Discharge Yes (see Discharge Recommendation) PT Frequency Every day PT Anticipated Treatments Bed mobility training, Gait training, Stair training, Transfer training PT Initiate/Continue Treatment Yes PT Plan/Goals Established w Pt/Caregiver Yes PT Patient/Caregiver Goal home with friend support PT Bed Mobility Goal Independent PT Bed Mobility Goal Time Frame 3 day(s) PT Transfer Goal Independent PT Transfer Device Goal Front wheeled walker PT Transfer Goal Time Frame 3 day(s) PT Ambulation Goal Independent PT Ambulation Device Goal None Gait 1 Distance for Goal 100 PT Ambulation Goal Time Frame 3 day(s) Therapy Pain Location Neck Therapy Pain Laterality Right Therapy Pain Intensity 8 Static Standing Supervised Dynamic Standing Supervised Basic Mobility Raw Score 17 PT Evaluation Charge Low complexity Physical Therapy Progress Note Physical Therapy Inpatient Initial Examination 02/25/2024 10:15 EDT Nail Bed Color [place] Capillary Refill < 2 seconds Dorsalis Pedis Pulse, Left 2+ Normal Dorsalis Pedis Pulse, Right 2+ Normal Radial Pulse, Left 2+ Normal Radial Pulse, Right 2+ Normal Respirations Unlabored Respiratory Pattern Regular All Lobes Breath Sounds Clear Abdomen Description Non-distended, Symmetric, Soft Abdomen Palpation Non-Tender, Soft Bowel Continence Continent Swallowing Disorder Complaints of difficulty or pain with swallowing Bowel Sounds All Quadrants Present Urinary Elimination Voiding, no difficulties Facial Movement Symmetric resting/crying Skin Temperature Warm Temperature All Extremities Warm Skin Description [place], Normal for ethnicity, Dry Skin Integrity Not intact Skin Turgor Elastic Mucous Membrane Color [place] Mucous Membrane Description Moist Hand Right 02/24/2024 20 gauge Peripheral IV Activity: Assessed Peripheral IV Dressing Condition: Clean, Dry, Intact Peripheral IV Dressing Activity: Transparent dressing Peripheral IV Line Status/Patency: Continuous infusion Peripheral IV Site Condition: No complications Peripheral IV Equipment: IV Pump Antecubital Left 20 gauge Peripheral IV Activity: Assessed Peripheral IV Dressing Condition: Clean, Dry, Intact Peripheral IV Dressing Activity: Transpar (more content not included)... [facility]05-09-2024 Nurse Progress note This nurse called and spoke with Dr. Rubin earlier this morning in regards to patients pain and they talked this morning while he was in and they decided to try Percocet in place of the Brewer that loyd originally ordered. Dr. Rubin gave verbal order to d/c norco and give 1 to 2 percocet every four hours for pain. This nurse administered this medication per order. Later this patient states that this medication did not help. This nurse called Dr. Rubin again as patient states that she cannot go home if her pain is not controlled. Per patient she states that the only thing that helps her is Dilaudid and Toradol. Dr. Rubinstates that he does not prescribe Dilaudid and she had a cervical fusion and NSAIDs are not used d/t healing problems associated with these medications. Dr. Rubin states that patient may take Brewer or Percocet and she can try Tramadol if she would like. Patient states that she will try Tramadol. Digitally Signed by Amna Wu RN on 02/25/2024 03:18 PM [facility] [place] [id number] Note Date of Service 02/25/2024 Chief Complaint Status post ACDF Subjective Seen and examined postoperative day 1. Lying in bed resting comfortably. Patient has complaints mostly of posterior neck pain and a sore throat when swallowing. She denies any other dysphonia or dysphagia. She denies any other acute numbness tingling weakness or changes in bowel or bladder function. Objective Vitals and Measurements T: 36.5 C (Oral) TMIN: 35.6 C TMAX: 36.9 C (Oral) HR: 101(Monitored) RR: 16 BP: 112/64 SpO2: 93% HT: 162.5 cm WT: 89.1 kg BMI: 33.74 Intake and Output 7AM Yesterday to 7AM Today Intake and Output (Last 24 hours) Intake Administration Information 441.79 Output Emesis 600.00 Urinary Catheter Output: 2800.00 Intra-Op EBL 25.00 Emesis Count 3.00 Total Summary Total Intake 441.79 Total Output 3425.00 Fluid Balance -2983.21 Physical Exam A&O, NAD NCAT, EOMI Neck soft and supple. Dressing clean dry and intact. Cervical collar in place Regular rate and rhythm Clear to auscultation bilaterally Abdomen soft and nontender Extremities: Sensation and motor intact grossly without focal deficit. Pulses and reflexes normal and symmetric Weight Dosing Weight: 89.1 kg (02/24/24) Dosing Weight: 89.1 kg (02/24/24) Medications Medications (21) Active Scheduled: (10) bisacodyl 5 mg EC tablet 10 mg 2 tab(s), Oral, Once docusate sodium 100 mg Capsule 100 mg 1 cap(s), Oral, BID docusate-senna (Senokot S) 50 mg-8.6 mg Tablet 2 tab(s), Oral, BID famotidine 20 mg tablet 20 mg 1 tab(s), Oral, qDay magnesium hydroxide 8% Suspension 30 mL UD 30 mL, Oral, Daily medroxyprogesterone 2.5 mg Tablet 5 mg 2 tab(s), Oral, Daily nitrofurantoin macrocrystals-MONOHYDRATE 100 mg Capsule 100 mg 1 cap(s), Oral, qHS Transderm-Scop patch REMOVAL 1 EA, Miscellaneous, q72h traZODONE 50 mg Tablet 200 mg 4 tab(s), Oral, qHS venlafaxine 75 mg ER capsule 75 mg 1 cap(s), Oral, qDay Continuous: (0) PRN: (11) acetaminophen 325 mg Tablet 650 mg 2 tab(s), Oral, q4h acetaminophen 325 mg Tablet 650 mg 2 tab(s), Oral, q4h acetaminophen-HYDROcodone 325-5 mg tablet 1 tab(s), Oral, q4h benzocaine-menthol (Cepacol Sore Throat) 15 mg-3.6mg lozenge 1 lozenge(s), Oral, q2h cyclobenzaprine 10 mg Tablet 10 mg 1 tab(s), Oral, TID diphenhydramine 25 mg tablet 25 mg 1 tab(s), Oral, q6h diphenhyDRAMINE 50 mg/mL (1 mL) INJ 25 mg 0.5 mL, IV Push, q6h morphine 4 mg/mL 1mL INJ 4 mg 1 mL, IV Push, q4h ondansetron 2 mg/ 1 mL 2 mL INJ 4 mg 2 mL, IV Push, q8h scopolamine 1.5 mg (1 mg / 72 hours patch) 1 patch(es), Transdermal, q72h sodium biphosphate-sodium phosphate 19 gm-7 gm Enema 133 mL, Rectal, qDay Lab Results 02/23 21:39 WBC: 13.2 H Hgb: 12.4 Hct: 36.1 L Platelet: 261 Neutrophil %: 91.1 H Glucose Level: 128 H Sodium Level: 134 L Potassium Level: 4.2 BUN: 10 Creatinine Lvl (s): 0.96 EKG Electrocardiogram [AOH] (EKG [AOH]) - InProcess -- 02/24/24 20:47:00 EDT, chest pain Assessment/Plan Cervical spondylosis I had a lengthy discussion with the patient. She is still having postop pain. I recommend continuedpain control as well as mobilization with physical therapy today. We will see how she does today. If her pain is improved and she is mobilizing well she can be discharged today. Otherwise we will keep her overnight and reassess her tomorrow. She understands and agrees with the treatment plan Ordered: acetaminophen-hydrocodone, Dose = 1 tab(s), Oral, q6h, PRN for pain, X 7 day(s), # 28 tab(s), 0 Refill(s), Pharmacy: [facility] #[id number], Cervical spondylosis, 162.5, cm, 02/24/24 8:21:00 EDT, Height, 89.1, kg, 02/24/24 8:21:00 EDT, Dosing Weight Chronic kidney disease, stage 3a GERD (gastroesophageal reflux disease) Major depressive disorder, recurrent Orders: acetaminophen, Start: 02/24/24 14:09:00 EDT, Dose = 650 mg, = 2 tab(s), Oral, q4h, PRN, Temperaturegreater than 38.6 degrees C, 02/24/24 14:09:00 EDT acetaminophen, Start: 02/24/24 14:: EDT, Dose = 650 mg, = 2 tab(s), Oral, q4h, PRN, TEMP greater than 38.6 degrees Celsius, 02/24/24 14:09:00 EDT acetaminophen-hydrocodone, Start: 02/24/24 14:09:00 EDT, Dose = 1 tab(s), Tab, Oral, q4h, PRN, Pain, scale 4-6, 02/24/24 14:09:00 EDT bisacodyl, Start: 02/25/24 9:00:00 EDT, Dose = 10 mg, = 2 tab(s), Oral, Once, Stop: 02/25/24 9:00:00 EDT, 02/25/24 9:00:00 EDT diphenhydrAMINE, Start: 02/24/24 14:09:00 EDT, Dose = 25 mg, = 0.5 mL, IV Push, q6h, PRN, Itching, 02/24/24 14:09:00 EDT diphenhydrAMINE, Start: 02/24/24 14:09:00 EDT, Dose = 25 mg, = 1 tab(s), Oral, q6h, PRN, Itching, 02/24/24 14:09:00 EDT docusate, Start: 02/24/24 20:00:00 EDT, Dose = 100 mg, = 1 cap(s), Oral, BID, 02/24/24 14:09:00 EDT docusate-senna, Start: 02/24/24 20:00:00 EDT, Dose = 2 tab(s), Tab, Oral, BID, 02/24/24 14:09:00 EDT famotidine, Start: 02/24/24 14:09: EDT, Dose = 20 mg, = 1 tab(s), Oral, qDay, 02/24/24 14:09:00 EDT magnesium hydroxide, Start: 02/24/24 14:09:00 EDT, Dose = 30 mL, Susp-Oral, Oral, Daily, 02/24/24 14:: EDT morphine, Start: 02/24/24 14:09: EDT, Dose = 4 mg, = 1 mL, IV Push, q4h, PRN, Pain, scale 7-10, 02/24/24 14:09:00 EDT ondansetron, Start: 02/25/24 14:09:00 EDT, Dose = 4 mg, = 2 mL, IV Push, q8h, PRN, Nausea, 02/24/2414:09:00 EDT scopolamine, Start: 02/24/24 14:09:00 EDT, Dose = 1 patch(es), ER Film, Transdermal, q72h, PRN, Nausea/Vomiting, 02/24/24 14:09:00 EDT scopolamine (Transderm-Scop Patch REMOVAL), Start: 02/27/24 19:46:00 EDT, Dose = 1 EA, Misc, Miscellaneous, q72h, 0 sodium biphosphate-sodium phosphate, Start: 02/24/24 14:09:00 EDT, Dose = 133 mL, Enema, Rectal, qDay, PRN, Constipation, 02/24/24 14:09:00 EDT Antiembolism Stocking Application Thigh High Assign to Observation status Basic Metabolic Panel Call Parameters Call Parameters Call Parameters Change dressing Code Status Communication Order (continuous) Complete Blood Count Consult to Occupational Therapy Consult to Physical Therapy Consult to Physician Diet Order Discontinue Order Discontinue Order Elevate Head of Bed Full Weight Bearing Ice application Ice application Incentive Spirometer Intake and Output IV Catheter Insertion/Care Neurological Check Oxygen Administration Pulse Oximeter - Intermittent Sequential Compression Device Application Telemetry Monitoring Up to Chair Vital Signs Vital Signs Weight Bearing as Tolerated Digitally Signed by UCHE RUBIN DO on 02/25/2024 08:22 AM [facility]05-08-2024 Note ORIGINAL EXAMINATION: ONE XRAY VIEW OF THE CHEST02/24/2024 9:28 pm CHEST ONE VIEW AP/PA EXAM DESCRIPTION: COMPARISON: Chest, February 11, 2024 HISTORY: ORDERING SYSTEM PROVIDED HISTORY: Reason for Exam: Pt feel chest pain and pressure. hypoxia FINDINGS: Single AP radiograph of the chest was obtained. The lungs are clear without evidence of focal consolidation, mass, pleural effusion, or pneumothorax. The cardiomediastinal silhouette is unremarkable. The bones and soft tissues are unremarkable. IMPRESSION: No radiographic evidence of acute cardiopulmonary disease. Interpreted by: Pan Henderson MD Preliminary Report By: Pan Henderson MD Electronically signed By Pan Henderson MD Dictated Date: 02/24/2024 9:49:33 PM Prelim Date: 02/24/2024 9:50:34 PM Sign Date: 02/24/2024 9:50:34 PM Ordering Provider: SUSIE [facility]05-08-2024 Note ORIGINAL Images acquired, not reported on this accession number.[facility]05-08-2024 Note Date of Service 02/24/2024 Chief Complaint Status post C5-6, C6-7 ACDF Subjective Seen and examined postop. Resting comfortably. Pain controlled. No complaints Objective Vitals and Measurements T: 36.8 C (Temporal Artery) HR: 85(Apical) RR: 18 BP: 137/94 SpO2: 95% HT: 162.5 cm WT: 89.1 kg BMI: 33.74 Intake and Output 7AM Yesterday to 7AM Today Intake and Output (Last 24 hours) Intake Output Total Summary Total Intake 0.00 Total Output 0.00 Fluid Balance 0.00 Physical Exam A&O, NAD NCAT, EOMI Neck soft and supple. Cervical collar in place. Dressing clean dry and intact Regular rate and rhythm Clear to auscultation bilaterally Abdomen soft and nontender Extremities: Sensation and motor intact grossly without focal deficit. Pulses and reflexes are normal and symmetric Weight Dosing Weight: 89.1 kg (02/24/24) Medications Medications (3) Active Scheduled: (2) ceFAZolin 2 gram(s) 100 mL, IV Piggyback, PREOP pharm heparin + NS (0.9% nacl) 1,000 mL 30,000 unit(s) 6 mL, Miscellaneous, PREOP pharm Continuous: (1) Lactated Ringers 1,000 mL 1,000 mL, Intravenous, 20 mL/hr PRN: (0) Lab Results No 36 Hour Lab Data EKG No qualifying data available. Assessment/Plan Orders: heparin + Sodium Chloride 0.9% intravenous solution 1,000 mL, Start: 02/24/24 6:00:00 EDT, Dose = 30,000 unit(s), = 6 mL, Miscellaneous, PREOP pharm, Rate: 0 mL/hr, Infuse over: 0 hour(s), For cell saver machine, 0, 02/24/24 8:00:00 EDT IV Catheter Insertion/Care NPO Prn Adapter Sequential Compression Device Application Skin Prep/Scrub Vital Signs Okay to admit See orders Discharge planning, likely home tomorrow Digitally Signed by UCHE RUBIN DO on 02/25/2024 08:19 AM [facility]05-08-2024 Anesthesiology Consult note* ROSY BERNABE APRN-POST FRAMER: VERIFY, PERFORM, SIGN Event Display: Anesthesiology Consultation Authored Date: Patient: ASHLEY GOODE Age: 53 years Sex: Female : 1970 Associated Diagnoses: None Author: ROSY BERNABE Preoperative Information Time of last food or liquid consumption: 02/23/2024 23:59:00 Anesthesia history Patient's history: negative. Family's history: negative. Review of Systems Ear/Nose/Mouth/Throat: Negative except as documented in history of present illness. Respiratory: Negative except as documented in history of present illness. Cardiovascular: Negative except as documented in history of present illness. Gastrointestinal: Negative except as documented in history of present illness. Genitourinary: Negative except as documented in history of present illness. Endocrine: Negative except as documented in history of present illness. Musculoskeletal: Negative except as documented in history of present illness. Integumentary: Negative except as documented in history of present illness. Neurologic: Negative except as documented in history of present illness. Health Status Allergies: Allergic Reactions (Selected) Severity Not Documented Demerol HCl- Rash. Morphine- Rash., Allergies (2) ActiveReaction Demerol HClRash morphineRash Current medications: (Selected) Inpatient Medications Ordered Benadryl: 25 mg, 0.5 mL, IV Push, q6h, PRN: Itching Benadryl: 25 mg, 1 tab(s), Oral, q6h, PRN: Itching Cepacol Sore Throat lozenge: 1 lozenge(s), Oral, q2h, PRN: Sore throat Colace: 100 mg, 1 cap(s), Oral, BID Effexor XR: 75 mg, 1 cap(s), Oral, qDay Fleet Enema: 133 mL, Rectal, qDay, PRN: Constipation Macrobid: 100 mg, 1 cap(s), Oral, qHS Milk of Magnesia: 30 mL, Oral, Daily Pepcid: 20 mg, 1 tab(s), Oral, qDay Percocet 325/5: 1 tab(s), Oral, q4h, PRN: Pain, scale 4-6 Percocet 325/5: 2 tab(s), Oral, q4h, PRN: Pain, scale 7-10 Senokot S: 2 tab(s), Oral, BID Transderm-Scop 1 mg/72 hr transdermal film, extended release: 1 patch(es), Transdermal, q72h, PRN: Nausea/Vomiting Tylenol: 650 mg, 2 tab(s), Oral, q4h, PRN: TEMP greater than 38.6 degrees Celsius Tylenol: 650 mg, 2 tab(s), Oral, q4h, PRN: Temperature greater than 38.6 degrees C Zofran: 4 mg, 2 mL, IV Push, q8h, PRN: Nausea cyclobenzaprine: 10 mg, 1 tab(s), Oral, TID, PRN: Muscle spasm medroxyPROGESTERone 2.5 mg oral tablet: 5 mg, 2 tab(s), Oral, Daily morphine: 4 mg, 1 mL, IV Push, q4h, PRN: Pain, scale 7-10 scopolamine (Transderm-Scop Patch REMOVAL): 1 EA, Miscellaneous, q72h traMADol: 100 mg, 2 tab(s), Oral, q6h, PRN: Pain, scale 7-10 traZODone: 200 mg, 4 tab(s), Oral, qHS Prescriptions Prescribed Effexor XR 75 mg oral capsule, extended release: 75 mg, 1 cap(s), Oral, qDay, 90 cap(s), 1 Refill(s) Brewer 325- 5 mg oral tablet: 1 tab(s), Oral, q6h, for 7 day(s), PRN: for pain, 28 tab(s), 0 Refill(s) esomeprazole 20 mg oral delayed release capsule: 20 mg, 1 cap(s), Oral, qDayAC, 90 cap(s), 3 Refill(s) traZODone 100 mg oral tablet: 200 mg, 2 tab(s), Oral, qHS, 180 tab(s), 1 Refill(s) Documented Medications Documented Probiotic: 1 capsule, Oral, Daily, 0 Refill(s) nitrofurantoin macrocrystals 100 mg oral capsule: TAKE 1 CAPSULE BY MOUTH EVERY DAY AT BEDTIME WITHFOOD turmeric 500 mg oral capsule: See Instructions, 1 cap(s) Oral Daily, 0 Refill(s), Medications (22) Active Scheduled: (9) docusate sodium 100 mg Capsule 100 mg 1 cap(s), Oral, BID docusate-senna (Senokot S) 50 mg-8.6 mg Tablet 2 tab(s), Oral, BID famotidine 20 mg tablet 20 mg 1 tab(s), Oral, qDay magnesium hydroxide 8% Suspension 30 mL UD 30 mL, Oral, Daily medroxyprogesterone 2.5 mg Tablet 5 mg 2 tab(s), Oral, Daily nitrofurantoin macrocrystals-MONOHYDRATE 100 mg Capsule 100 mg 1 cap(s), Oral, qHS Transderm-Scop patch REMOVAL 1 EA, Miscellaneous, q72h traZODONE 50 mg Tablet 200 mg 4 tab(s), Oral, qHS venlafaxine 75 mg ER capsule 75 mg 1 cap(s), Oral, qDay Continuous: (0) PRN: (13) acetaminophen 325 mg Tablet 650 mg 2 tab(s), Oral, q4h acetaminophen 325 mg Tablet 650 mg 2 tab(s), Oral, q4h acetaminophen-OXYcodone 325 mg-5 mg Tablet 2 tab(s), Oral, q4h acetaminophen-OXYcodone 325 mg-5 mg Tablet 1 tab(s), Oral, q4h benzocaine-menthol (Cepacol Sore Throat) 15 mg-3.6mg lozenge 1 lozenge(s), Oral, q2h cyclobenzaprine 10 mg Tablet 10 mg 1 tab(s), Oral, TID diphenhydramine 25 mg tablet 25 mg 1 tab(s), Oral, q6h diphenhyDRAMINE 50 mg/mL (1 mL) INJ 25 mg 0.5 mL, IV Push, q6h morphine 4 mg/mL 1mL INJ 4 mg 1 mL, IV Push, q4h ondansetron 2 mg/ 1 mL 2 mL INJ 4 mg 2 mL, IV Push, q8h scopolamine 1.5 mg (1 mg / 72 hours patch) 1 patch(es), Transdermal, q72h sodium biphosphate-sodium phosphate 19 gm-7 gm Enema 133 mL, Rectal, qDay tramadol 50 mg Tablet 100 mg 2 tab(s), Oral, q6h Problem list: Medical At risk for colon cancer / SNOMED CT 818724631 / Confirmed Somatic dysfunction of cervical region / SNOMED CT 2157102064 / Confirmed Chronic kidney disease, stage 3a / SNOMED CT 9122451828 / Confirmed Degenerative disc disease, cervical / SNOMED CT 613175790 / Confirmed Fatigue / SNOMED CT 170002502 / Confirmed GERD (gastroesophageal reflux disease) / SNOMED CT 975016591 / Confirmed Insomnia / SNOMED CT 076868133 / Confirmed IBS (irritable bowel syndrome) / SNOMED CT 68395067 / Confirmed Long-term current use of proton pump inhibitor therapy / SNOMED CT 2961591199 / Confirmed Hot flashes due to menopause / SNOMED CT 117360743 / Confirmed Strain of muscle of multiple sites / SNOMED CT 82298104 / Confirmed Neck pain / SNOMED CT 140339019 / Confirmed Knee pain, bilateral / SNOMED CT 4525373312 / Confirmed Right shoulder pain / SNOMED CT 8327258551 / Confirmed Postmenopausal HRT (hormone replacement therapy) / SNOMED CT 844106908 / Confirmed Major depressive disorder, recurrent / SNOMED CT 709052487 / Confirmed Frequent UTI / SNOMED CT 771288867 / Confirmed Renal calculi / SNOMED CT [id number] / Confirmed Somatic dysfunction of lower extremity / SNOMED CT 0108424425 / Confirmed Somatic dysfunction of lumbar region / SNOMED CT 4974973477 / Confirmed Somatic dysfunction of pelvic region / SNOMED CT 4525829262 / Confirmed Somatic dysfunction of rib region / SNOMED CT 1909810534 / Confirmed Somatic dysfunction of sacral region / SNOMED CT 9158092832 / Confirmed Somatic dysfunction of thoracic region / SNOMED CT 1763697793 / Confirmed Resolved: Lumbago of lumbar region with sciatica / SNOMED CT 438864058 Resolved: Spasm of thoracic back muscle / SNOMED CT 2290791568 Resolved: Suspected COVID-19 virus infection / SNOMED CT 1250707411 Resolved: UTI (urinary tract infection) / SNOMED CT [id number] Canceled: Acute maxillary sinusitis / SNOMED CT 251692616 Canceled: Moderate recurrent major depression / SNOMED CT 191743085, Active Problems (25) At risk for colon cancer Chronic kidney disease, stage 3a Degenerative disc disease, cervical Fatigue Frequent UTI GERD (gastroesophageal reflux disease) Hot flashes due to menopause IBS (irritable bowel syndrome) Insomnia Knee pain, bilateral Long-term current use of proton pump inhibitor therapy Major depressive disorder, recurrent Neck pain Postmenopausal HRT (hormone replacement therapy) Renal calculi Right shoulder pain Somatic dysfunction of cervical region Somatic dysfunction of lower extremity Somatic dysfunction of lumbar region Somatic dysfunction of pelvic region Somatic dysfunction of rib region Somatic dysfunction of sacral region Somatic dysfunction of thoracic region Strain of muscle of multiple sites TIA (transient ischemic attack) Histories Past Medical History: Resolved UTI (urinary tract infection) ([id number]): Resolved. Lumbago of lumbar region with sciatica (105651306): Resolved. Spasm of thoracic back muscle (0407606708): Resolved. Suspected COVID-19 virus infection (9193174869): Resolved. Family History: Diabetes mellitus Father Asthma Daughter Stroke Father Diabetes Father Colon cancer Mother Procedure history: H/O: tubal ligation ([id number]). Dilation and curettage of uterus (81194259). Ovarian cystectomy (4719167149). Cystoscopy (9011474527). section (50524424). Comments: 02/11/2024 11:37 EDT - Emeli Tran RN x2 Elbow ([id number]). Comments: 02/11/2024 11:39 EDT - Emeli Tran RN bilateral Kidney ([id number]). Comments: 02/24/2024 14:07 THAT - Snow Macias RN stones Discectomy (5268027). Ureter ([id number]). Comments: 02/24/2024 14:08 THAT Snow Carney RN right side bipas Social History: Social & Psychosocial Habits Alcohol 4Risk Assessment: Denies Alcohol Use 02/25/2024 Use: Current Frequency: 1-2 times per month Comment: Occ - 07/12/2020 13:59 - Jenni Mendoza LPN Substance Abuse 4Risk Assessment: Denies Substance Abuse 02/25/2024 Use: Never Tobacco 02/25/2024 Tobacco Use: Never (less than 100 in l Comment: No Tobacco/Smoke Exposure - 06/02/2019 07:29 - Tasia Hutchison CMA 4Risk Assessment: Denies Tobacco Use Home/Environment 02/25/2024 Living situation: Home with assistance Domestic Concerns None Primary Quality Supervisor: [facility] Special Services and Community Resources None Marital Status of Patient if Patient Independent Adult: Unmarried Nutrition/Health 02/25/2024 Type of diet: Regular Caffeine intake amount: None Appetite Good Eating Difficulties None Physical Examination Vital Signs 02/26/2024 5:57 EDT Temperature Oral 36.7 DegC Heart Rate Monitored 102 bpm HI Respiratory Rate 16 br/min Systolic Blood Pressure Non-Invasive 112 mmHg Diastolic Blood Pressure Non-Invasive 75 mmHg 02/25/2024 23:13 EDT Temperature Oral 36.7 DegC Heart Rate Monitored 106 bpm HI Respiratory Rate 16 br/min Systolic Blood Pressure Non-Invasive 131 mmHg Diastolic Blood Pressure Non-Invasive 81 mmHg 02/25/2024 20:21 EDT Heart Rate Monitored 114 bpm HI 02/25/2024 19:07 EDT Temperature Oral 37.0 DegC Heart Rate Monitored 107 bpm HI Respiratory Rate 16 br/min Systolic Blood Pressure Non-Invasive 92 mmHg Diastolic Blood Pressure Non-Invasive 53 mmHg LOW 02/25/2024 15:23 EDT Temperature Oral 37.6 DegC HI Heart Rate Monitored 104 bpm HI Respiratory Rate 16 br/min Systolic Blood Pressure Non-Invasive 133 mmHg Diastolic Blood Pressure Non-Invasive 81 mmHg 02/25/2024 11:13 EDT Temperature Oral 36.6 DegC Heart Rate Monitored 104 bpm HI Respiratory Rate 16 br/min Systolic Blood Pressure Non-Invasive 123 mmHg Diastolic Blood Pressure Non-Invasive 83 mmHg 02/25/2024 7:17 EDT Temperature Oral 36.5 DegC Heart Rate Monitored 101 bpm HI Respiratory Rate 16 br/min Systolic Blood Pressure Non-Invasive 112 mmHg Diastolic Blood Pressure Non-Invasive 64 mmHg 02/25/2024 3:34 EDT Temperature Oral 36.8 DegC Peripheral Pulse Rate 108 bpm HI Respiratory Rate 16 br/min Systolic Blood Pressure Non-Invasive 112 mmHg Diastolic Blood Pressure Non-Invasive 66 mmHg Vital Signs(last 24 hrs) Last Charted Temp Oral36.7 DegC (FEBRUARY 25 05:57) Heart Rate MonitoredH 102bpm (FEBRUARY 25 05:57) CJE293 mmHg (FEBRUARY 25 05:57) DBP75 mmHg (FEBRUARY 25 05:57) Pain assessment: Pain Assessment 02/26/2024 8:54 EDT Primary Pain Intensity 8 Pain Scale Type 0-10 Pain scale 02/26/2024 5:42 EDT Primary Pain Intensity 10 02/25/2024 22:04 EDT Pain Scale Assessment 0-10 Pain scale Primary Pain Location Neck Primary Pain Intensity 8 02/25/2024 21:04 EDT Primary Pain Intensity 10 02/25/2024 20:21 EDT Primary Pain Intensity 10 Pain Scale Type 0-10 Pain scale 02/25/2024 12:05 EDT Pain Scale Assessment 0-10 Pain scale Primary Pain Location Neck Primary Pain Intensity 10 Pain Scale Type 0-10 Pain scale 02/25/2024 10:33 EDT Primary Pain Location Neck Primary Pain Intensity 9 Primary Pain Aggravating Factors Swallowing Pain Scale Type 0-10 Pain scale 02/25/2024 5:27 EDT Primary Pain Location Neck Primary Pain Laterality Bilateral Primary Pain Intensity 7 Primary Pain Aggravating Factors Swallowing Pain Scale Type 0-10 Pain scale 02/25/2024 1:30 EDT Primary Pain Location Neck Primary Pain Laterality Bilateral Primary Pain Intensity 10 Pain Scale Type 0-10 Pain scale 02/25/2024 0:30 EDT Pain Scale Assessment 0-10 Pain scale Primary Pain Location Neck Primary Pain Laterality Bilateral Primary Pain Intensity 10 Pain Scale Type 0-10 Pain scale . General: Alert and oriented. Airway: Normal neck range of motion. Mallampati classification: II (soft palate, fauces, uvula visible). Head: Normocephalic. Dentition Evaluation: Intact, Own teeth. Neck: Full range of motion. Respiratory: Lungs are clear to auscultation. Cardiovascular: Normal rate. Heart Sounds: Normal. Gastrointestinal: Soft. Musculoskeletal Normal range of motion. Integumentary: Intact, Warm, Dry. Neurologic: Alert, Oriented. Review / Management Results review: Labs (Last four charted values) WBC 10.5(FEBRUARY 25)H 13.2(FEBRUARY 23) Hgb 12.7(FEBRUARY 25)12.4(FEBRUARY 23) Hct 37.2(FEBRUARY 25)L 36.1(FEBRUARY 23) Plt 283(FEBRUARY 25)261(FEBRUARY 23) Na 139(FEBRUARY 25)L 134(FEBRUARY 23) K 4.2(FEBRUARY 25)4.2(FEBRUARY 23) CO2 28(FEBRUARY 25)26(FEBRUARY 23) Cl 101(FEBRUARY 25)100(FEBRUARY 23) Cr 0.94(FEBRUARY 25)0.96(FEBRUARY 23) BUN 11(FEBRUARY 25)10(FEBRUARY 23) Glucose H 116(FEBRUARY 25)H 128(FEBRUARY 23) Ca 9.0(FEBRUARY 25)8.4(FEBRUARY 23) , Lab results 02/26/2024 9:08 EDT Hand Right 02/24/2024 20 gauge Peripheral IV Activity: Assessed Peripheral IV Dressing Condition: Clean, Dry, Intact Peripheral IV Dressing Activity: Transparent dressing Peripheral IV Line Status/Patency: Flushes easily Peripheral IV Site Condition: No complications Peripheral IV Equipment: PRN Adaptor Antecubital Left 20 gauge Peripheral IV Activity: Assessed Peripheral IV Dressing Condition: Clean, Dry, Intact Peripheral IV Dressing Activity: Transparent dressing Peripheral IV Line Status/Patency: Flushes easily Peripheral IV Site Condition: No complications Peripheral IV Equipment: PRN Adaptor 02/26/2024 9:00 EDT medroxyPROGESTERone Not Done: Med Not Available (Not Done) 02/26/2024 8:54 EDT Primary Pain Intensity 8 Pain Scale Type 0-10 Pain scale Nail Bed Color [place] Capillary Refill < 2 seconds Dorsalis Pedis Pulse, Left 2+ Normal Dorsalis Pedis Pulse, Right 2+ Normal Radial Pulse, Left 2+ Normal Radial Pulse, Right 2+ Normal Respirations Unlabored Respiratory Pattern Regular All Lobes Breath Sounds Clear Abdomen Description Non-distended, Symmetric, Soft Abdomen Palpation Non-Tender, Soft Passing Flatus Yes Bowel Continence Continent Swallowing Disorder None Bowel Sounds All Quadrants Present Genitourinary Symptoms Voiding with difficulties Facial Movement Symmetric resting/crying All Extremity Description [place] Skin Temperature Warm Temperature All Extremities Warm Skin Description [place], Normal for ethnicity, Dry Skin Integrity Not intact Skin Turgor Elastic Mucous Membrane Color [place] Mucous Membrane Description Moist Sensory Perception Ez Slightly limited Moisture Ez Rarely moist Activity Ez Walks occasionally Mobility Ez Slightly limited Nutrition Ez Probably inadequate Friction and Shear Ez Potential problem Ez Score 17 Hospital Acquired Pressure Injury Risk Low risk (score 15-18) Neck Anterior Skin Abnormality Type: Surgical incision Incision, Wound Dressing/Activity: Assessed Incision, Wound Dressing Assessment: Clean, Dry, Intact Incision, Wound Dressing: Gauze dressing Wound Exudate Amount: None Neurological Language Able to speak clearly Gait Steady Extremity Movement Equal Swallowing Difficulty Pills, Solids Characteristics of Communication Appropriate Characteristics of Speech Clear Facial Symmetry Symmetric Level of Consciousness Alert Aspiration Risk Difficulty swallowing pills, Difficulty swallowing solids Strength All Extremities Moderate Tone All Extremities Normal Sensation All Extremities Intact Left Upper Extremity Sensation Intact Right Upper Extremity Sensation Intact Left Lower Extremity Sensation Intact Right Lower Extremity Sensation Intact Estes Screen Daily History of Fall in Last 3 Months Estes No Presence of Secondary Diagnosis Estes Yes Use of Ambulatory Aid Estes None, bedrest, wheelchair, nurse IV/PRN Adapter Fall Risk Estes Yes Gait Weak or Impaired Fall Risk Estes Normal, bedrest, immobile Mental Status Fall Risk Estes Oriented to own ability Estes Fall Risk Score 35 Violence Risk Confused No Violence Risk Irritable No Violence Risk Boisterous No Violence Risk Verbal Threats No Violence Risk Physical Threats No Violence Risk Attacking Objects No Violence Risk Predictor Score 0 Violence Risk Intervention None Violence Risk Current Interventions None Affect/Behavior Appropriate, Calm, Cooperative Orientation Oriented x 4 Orientation Assessment Oriented x 4 Memory Recall Ability Current season Activity Status ADL Awake, Resting, Watching TV Standard Safety ID band on, Allergy Band on, Call device within reach, Bed in low position, Wheels locked, Upper/Half-Length side-rails up, Phone within reach, personal items within reach, Assistive devices within reach, Safety level maintained, Non-Slip footwear High Risk Safety Identified as high risk, Fall ID band on, Room located near nursing station, Bed alert on, Door open, Bathroom light on, Non-Slip footwear, Room check performed Demonstrates Correct Call Light Use Yes Appetite Good Eating Difficulties None 02/26/2024 7:54 EDT Patient Participation in Treatment Cooperative IS Volume Achieved 450 mL IS Times performed 10 IS Patient Effort Poor Oxygen Therapy Room air Oxygen Saturation 94 % 02/26/2024 6:38 EDT Oxygen Therapy Room air Oxygen Activity Room air Oxygen Flow Rate 0 02/26/2024 6:13 EDT Nurse Safety Checks q2hrs Performed 7pm-7am 02/26/2024 6:12 EDT Glucose Level 116 mg/dL HI Sodium Level 139 mmol/L Potassium Level 4.2 mmol/L Chloride 101 mmol/L CO2 28 mmol/L Electrolyte Balance 10.0 mEq/L BUN 11 mg/dL Creatinine Lvl (s) 0.94 mg/dL BUN/Creatinine Ratio 12 ratio Calcium Lvl 9.0 mg/dL GFR Non- 63 ml/min/1.73sqm NA GFR 76 ml/min/1.73sqm NA Creatinine Clearance Calc 61.09 mL/min 02/26/2024 6:10 EDT Facial Movement Symmetric resting/crying Neurological Language Able to speak clearly Gait Steady Extremity Movement Equal Swallowing Difficulty Pills, Solids Characteristics of Communication Appropriate Characteristics of Speech Clear Facial Symmetry Symmetric Aspiration Risk Difficulty swallowing pills, Difficulty swallowing solids Strength All Extremities Moderate 02/26/2024 5:57 EDT Temperature Oral 36.7 DegC Heart Rate Monitored 102 bpm HI Respiratory Rate 16 br/min Systolic Blood Pressure Non-Invasive 112 mmHg Diastolic Blood Pressure Non-Invasive 75 mmHg Oxygen Therapy Room air Oxygen Saturation 96 % 02/26/2024 5:42 EDT Primary Pain Intensity 10 Assistive Device Walker Activity Status ADL Up to bathroom, Returned to bed acetaminophen-oxycodone 2 tab(s) tab(s) 02/26/2024 5:23 EDT WBC 10.5 10^3/mcL RBC 4.17 10^6/mcL LOW Hgb 12.7 G/dL Hct 37.2 % MCV 89.1 fL MCH 30.4 pg MCHC 34.1 G/dL RDW 14.6 % HI Platelet 283 10^3/mcL MPV 10.0 fL Neutrophil % 82.0 % HI Lymphocyte % 7.3 % LOW Monocyte % 7.8 % Eosinophil % 2.5 % Basophil % 0.4 % Neutrophil, Absolute 8.6 10^3/mcL HI Lymphocyte, Absolute 0.8 10^3/mcL Monocyte, Absolute 0.8 10^3/mcL Eosinophil, Absolute 0.3 10^3/mcL Basophil, Absolute 0.0 10^3/mcL 02/26/2024 5:14 EDT Facial Movement Symmetric resting/crying Neurological Language Able to speak clearly Gait Steady Extremity Movement Equal Swallowing Difficulty Pills, Solids Characteristics of Communication Appropriate Characteristics of Speech Clear Facial Symmetry Symmetric Aspiration Risk Difficulty swallowing pills, Difficulty swallowing solids Strength All Extremities Moderate Mechanical VTE Prophylaxis Education Not Done: See ICU flow (Not Done) Mechanical VTE Prophylaxis Education Not Done: See ICU flow (Not Done) Sequential Compression Device Not Done: See ICU flow (Not Done) Antiembolism Stockings Form Not Done (Not Done) Sequential Compression Device Form Not Done (Not Done) 02/26/2024 4:06 EDT Facial Movement Symmetric resting/crying Neurological Language Able to speak clearly Gait Steady Extremity Movement Equal Swallowing Difficulty Pills, Solids Characteristics of Communication Appropriate Characteristics of Speech Clear Facial Symmetry Symmetric Aspiration Risk Difficulty swallowing pills, Difficulty swallowing solids Strength All Extremities Moderate 02/26/2024 3:15 EDT Facial Movement Symmetric resting/crying Neurological Language Able to speak clearly Gait Steady Extremity Movement Equal Swallowing Difficulty Pills, Solids Characteristics of Communication Appropriate Characteristics of Speech Clear Facial Symmetry Symmetric Aspiration Risk Difficulty swallowing pills, Difficulty swallowing solids Strength All Extremities Moderate 02/26/2024 3:10 EDT Individuals Taught Patient Learning Readiness Willing to learn Barriers to Learning None evident Teaching Method Explanation Disease Process General Education Signs/Symptoms to report Teaching Evaluation Verbalizes/Nonverbally indicates understanding Pain Medication Education Pain scale, Name, Purpose, Schedule Other Pain Alleviating Education Distraction, Repositioning Pain Teaching Evaluation Verbalizes/Nonverbally indicates understanding 02/26/2024 2:00 EDT Facial Movement Symmetric resting/crying Neurological Language Able to speak clearly Gait Steady Extremity Movement Equal Swallowing Difficulty Pills, Solids Characteristics of Communication Appropriate Characteristics of Speech Clear Facial Symmetry Symmetric Aspiration Risk Difficulty swallowing pills, Difficulty swallowing solids Strength All Extremities Moderate 02/26/2024 1:21 EDT Mechanical VTE Prophylaxis Education Not Done: See ICU flow (Not Done) Mechanical VTE Prophylaxis Education Not Done: See ICU flow (Not Done) Sequential Compression Device Not Done: See ICU flow (Not Done) Antiembolism Stockings Form Not Done (Not Done) Sequential Compression Device Form Not Done (Not Done) 02/26/2024 1:20 EDT Facial Movement Symmetric resting/crying Neurological Language Able to speak clearly Gait Steady Extremity Movement Equal Swallowing Difficulty Pills, Solids Characteristics of Communication Appropriate Characteristics of Speech Clear Facial Symmetry Symmetric Aspiration Risk Difficulty swallowing pills, Difficulty swallowing solids (Modified) Strength All Extremities Moderate 02/26/2024 0:30 EDT Facial Movement Symmetric resting/crying Neurological Language Able to speak clearly Gait Steady Extremity Movement Equal Swallowing Difficulty Pills, Solids Characteristics of Communication Appropriate Characteristics of Speech Clear Facial Symmetry Symmetric Aspiration Risk Difficulty swallowing pills, Difficulty swallowing solids Strength All Extremities Moderate 02/25/2024 23:29 EDT Facial Movement Symmetric resting/crying Neurological Language Able to speak clearly Gait Steady Extremity Movement Equal Swallowing Difficulty Pills, Solids Characteristics of Communication Appropriate Characteristics of Speech Clear Facial Symmetry Symmetric Aspiration Risk Difficulty swallowing pills, Difficulty swallowing solids Strength All Extremities Moderate 02/25/2024 23:13 EDT Temperature Oral 36.7 DegC Heart Rate Monitored 106 bpm HI Respiratory Rate 16 br/min Systolic Blood Pressure Non-Invasive 131 mmHg Diastolic Blood Pressure Non-Invasive 81 mmHg Oxygen Therapy Room air Oxygen Saturation 91 % LOW 02/25/2024 22:30 EDT Facial Movement Symmetric resting/crying Neurological Language Able to speak clearly Gait Steady Extremity Movement Equal Swallowing Difficulty Pills, Solids Characteristics of Communication Appropriate Characteristics of Speech Clear Facial Symmetry Symmetric Aspiration Risk Difficulty swallowing pills, Difficulty swallowing solids Strength All Extremities Moderate 02/25/2024 22:04 EDT Pain Scale Assessment 0-10 Pain scale Primary Pain Location Neck Primary Pain Intensity 8 Reason for PRN medication Pain management PRN medication effectiveness Partial PRN Medication Effectiveness Evaluation PRN Medication Effectiveness Evaluation 02/25/2024 21:39 EDT Facial Movement Symmetric resting/crying Neurological Language Able to speak clearly Gait Steady Extremity Movement Equal Swallowing Difficulty Pills, Solids Characteristics of Communication Appropriate Characteristics of Speech Clear Facial Symmetry Symmetric Aspiration Risk Difficulty swallowing pills, Difficulty swallowing solids Strength All Extremities Moderate 02/25/2024 21:38 EDT Mechanical VTE Prophylaxis Education Not done this session Mechanical VTE Prophylaxis Education Not done this session Sequential Compression Device bilateral knee high removed/off Reason SCD Removed/Off Patient refused Antiembolism Stocking On/Re-applied bilateral thigh high Antiembolism Stockings Form Antiembolism Stockings Form Sequential Compression Device Form Sequential Compression Device Form 02/25/2024 21:04 EDT Primary Pain Intensity 10 acetaminophen-oxycodone 2 tab(s) tab(s) docusate 100 mg mg docusate-senna 2 tab(s) tab(s) nitrofurantoin 100 mg mg traZODone 200 mg mg 02/25/2024 20:21 EDT Heart Rate Monitored 114 bpm HI Primary Pain Intensity 10 Pain Scale Type 0-10 Pain scale Nail Bed Color [place] Capillary Refill < 2 seconds Dorsalis Pedis Pulse, Left 2+ Normal Dorsalis Pedis Pulse, Right 2+ Normal Radial Pulse, Left 2+ Normal Radial Pulse, Right 2+ Normal Cardiac Rhythm Sinus tachycardia Monitoring Lead III, V1/MCL1 HI Interval 0.17 second(s) QRS Duration 0.08 second(s) QT Interval 0.31 second(s) QTc Interval 0.43 second(s) Alarms On and Functional Yes Heart Rate Alarm Set At - Low 50 Heart Rate Alarm Set At - High 120 Respirations Unlabored Respiratory Pattern Regular All Lobes Breath Sounds Clear Oxygen Therapy Room air Abdomen Description Non-distended, Symmetric, Soft Abdomen Palpation Non-Tender, Soft Bowel Sounds All Quadrants Present Urinary Elimination Voiding, no difficulties Facial Movement Symmetric resting/crying Skin Temperature Warm Skin Description [place], Normal for ethnicity Mucous Membrane Color [place] Mucous Membrane Description Moist Neck Anterior Skin Abnormality Type: Surgical incision Incision, Wound Dressing/Activity: Assessed Incision, Wound Dressing Assessment: Clean, Dry, Intact Incision, Wound Dressing: Gauze dressing Wound Exudate Amount: None Hand Right 02/24/2024 20 gauge Peripheral IV Activity: Assessed Peripheral IV Dressing Condition: Clean, Dry, Intact Peripheral IV Dressing Activity: Transparent dressing Peripheral IV Site Condition: No complications Peripheral IV Equipment: PRN Adaptor Antecubital Left 20 gauge Peripheral IV Activity: Assessed Peripheral IV Dressing Condition: Clean, Dry, Intact Peripheral IV Dressing Activity: Transparent dressing Peripheral IV Site Condition: No complications Peripheral IV Equipment: PRN Adaptor Neurological Language Able to speak clearly Gait Steady Extremity Movement Equal Swallowing Difficulty Pills, Solids Characteristics of Communication Appropriate Characteristics of Speech Clear Facial Symmetry Symmetric Level of Consciousness Alert Aspiration Risk Difficulty swallowing pills, Difficulty swallowing solids Strength All Extremities Moderate Orientation Oriented x 4 Activity Status ADL Awake, Sleeps intermittently Standard Safety ID band on, Allergy Band on, Call device within reach, Bed in low position, personal items within reach, Safety level maintained, Non-Slip footwear 02/25/2024 19:30 EDT Facial Movement Symmetric resting/crying Neurological Language Able to speak clearly Gait Steady Extremity Movement Equal Swallowing Difficulty Pills, Solids Characteristics of Communication Appropriate Characteristics of Speech Clear Facial Symmetry Symmetric Aspiration Risk Difficulty swallowing pills, Difficulty swallowing solids 02/25/2024 19:07 EDT Temperature Oral 37.0 DegC Heart Rate Monitored 107 bpm HI Respiratory Rate 16 br/min Systolic Blood Pressure Non-Invasive 92 mmHg Diastolic Blood Pressure Non-Invasive 53 mmHg LOW Oxygen Therapy Room air Oxygen Saturation 92 % LOW 02/25/2024 18:38 EDT Nurse Safety Checks q2hrs Performed 7am-7pm 02/25/2024 18:24 EDT Facial Movement Symmetric resting/crying Neurological Language Able to speak clearly Gait Steady Extremity Movement Equal Swallowing Difficulty Pills, Solids Characteristics of Communication Appropriate Characteristics of Speech Clear Facial Symmetry Symmetric Aspiration Risk Difficulty swallowing pills, Difficulty swallowing solids Strength All Extremities Moderate 02/25/2024 17:01 EDT Facial Movement Symmetric resting/crying Neurological Language Able to speak clearly Gait Steady Extremity Movement Equal Swallowing Difficulty Pills, Solids Characteristics of Communication Appropriate Characteristics of Speech Clear Facial Symmetry Symmetric Aspiration Risk Difficulty swallowing pills, Difficulty swallowing solids Strength All Extremities Moderate 02/25/2024 17:00 EDT Individuals Taught Patient Individuals Taught Patient Learning Readiness Willing to learn Learning Readiness Willing to learn Barriers to Learning None evident Barriers to Learning None evident Teaching Method Explanation Teaching Method Explanation Mechanical VTE Prophylaxis Education Purpose of Mechanical VTE Prophylaxis, Wear device at all times when in bed/chair, Always call for assistance to get out of bed, Explain the higher risk for falling, Call for assistance to re-apply device Mechanical VTE Prophylaxis Education Purpose of Mechanical VTE Prophylaxis, Wear device at all times when in bed/chair, Always call for assistance to get out of bed, Explain the higher risk for falling Teaching Evaluation Verbalizes/Nonverbally indicates understanding Teaching Evaluation Verbalizes/Nonverbally indicates understanding Pain Medication Education Pain scale, Name, Purpose, Action, Route Other Pain Alleviating Education Cold therapy, Heat therapy, Relaxation techniques, Repositioning Pain Teaching Evaluation Verbalizes/Nonverbally indicates understanding Skin Care Education Skin care Incision/Wound Education Wound care, Signs/Symptoms of skin impairment Skin/Wound Teaching Evaluation Verbalizes/Nonverbally indicates understanding Sequential Compression Device bilateral knee high applied/on Antiembolism Stocking On/Re-applied bilateral thigh high Antiembolism Stockings Form Antiembolism Stockings Form Sequential Compression Device Form Sequential Compression Device Form 02/25/2024 16:04 EDT Facial Movement Symmetric resting/crying Neurological Language Able to speak clearly Gait Steady Extremity Movement Equal Swallowing Difficulty Pills, Solids Characteristics of Communication Appropriate Characteristics of Speech Clear Facial Symmetry Symmetric Aspiration Risk Difficulty swallowing pills, Difficulty swallowing solids Strength All Extremities Moderate 02/25/2024 16:00 EDT Cardiac Rhythm Sinus tachycardia Monitoring Lead III, V1/MCL1 HI Interval 0.18 second(s) QRS Duration 0.10 second(s) QT Interval 0.32 second(s) QTc Interval 0.43 second(s) Alarms On and Functional Yes Heart Rate Alarm Set At - Low 50 Heart Rate Alarm Set At - High 120 02/25/2024 15:23 EDT Temperature Oral 37.6 DegC HI Heart Rate Monitored 104 bpm HI Respiratory Rate 16 br/min Systolic Blood Pressure Non-Invasive 133 mmHg Diastolic Blood Pressure Non-Invasive 81 mmHg Oxygen Therapy Room air Oxygen Saturation 100 % 02/25/2024 15:21 EDT Facial Movement Symmetric resting/crying Neurological Language Able to speak clearly Gait Steady Extremity Movement Equal Swallowing Difficulty Pills, Solids Characteristics of Communication Appropriate Characteristics of Speech Clear Facial Symmetry Symmetric Aspiration Risk Difficulty swallowing pills, Difficulty swallowing solids 02/25/2024 15:07 EDT Progress Note-Nurse Pain management 02/25/2024 14:55 EDT Neck Anterior Skin Abnormality Type: Surgical incision Incision, Wound Dressing/Activity: Assessed Incision, Wound Dressing Assessment: Clean, Dry, Intact Incision, Wound Dressing: Gauze dressing Wound Exudate Amount: None 02/25/2024 14:52 EDT benzocaine-menthol topical 1 lozenge(s) lozenge(s) 02/25/2024 14:00 EDT Facial Movement Symmetric resting/crying Neurological Language Able to speak clearly Gait Steady Extremity Movement Equal Swallowing Difficulty Pills, Solids Characteristics of Communication Appropriate Characteristics of Speech Clear Facial Symmetry Symmetric Aspiration Risk Difficulty swallowing pills, Difficulty swallowing solids Strength All Extremities Moderate 02/25/2024 13:49 EDT Emesis Count 0 EA Stool Count 0 EA Urine Count 3 EA 02/25/2024 13:47 EDT Facial Movement Symmetric resting/crying Neurological Language Able to speak clearly Gait Steady Extremity Movement Equal Swallowing Difficulty Pills, Solids Characteristics of Communication Appropriate Characteristics of Speech Clear Facial Symmetry Symmetric Aspiration Risk Difficulty swallowing pills, Difficulty swallowing solids 02/25/2024 13:46 EDT Individuals Taught Patient Individuals Taught Patient Learning Readiness Willing to learn Learning Readiness Willing to learn Barriers to Learning None evident Barriers to Learning None evident Teaching Method Explanation Teaching Method Explanation Mechanical VTE Prophylaxis Education Purpose of Mechanical VTE Prophylaxis, Wear device at all times when in bed/chair, Always call for assistance to get out of bed, Explain the higher risk for falling, Call for assistance to re-apply device Mechanical VTE Prophylaxis Education Purpose of Mechanical VTE Prophylaxis, Wear device at all times when in bed/chair, Always call for assistance to get out of bed, Explain the higher risk for falling Teaching Evaluation Verbalizes/Nonverbally indicates understanding Teaching Evaluation Verbalizes/Nonverbally indicates understanding Sequential Compression Device bilateral knee high applied/on Antiembolism Stocking On/Re-applied bilateral thigh high Antiembolism Stockings Form Antiembolism Stockings Form Sequential Compression Device Form Sequential Compression Device Form 02/25/2024 12:06 EDT Facial Movement Symmetric resting/crying Neurological Language Able to speak clearly Gait Steady Extremity Movement Equal Swallowing Difficulty Pills, Solids Characteristics of Communication Appropriate Characteristics of Speech Clear Facial Symmetry Symmetric Aspiration Risk Difficulty swallowing pills, Difficulty swallowing solids [place] Yes Strength All Extremities Moderate 02/25/2024 12:05 EDT Pain Scale Assessment 0-10 Pain scale Primary Pain Location Neck Primary Pain Intensity 10 Pain Scale Type 0-10 Pain scale Reason for PRN medication Pain management PRN medication effectiveness No PRN Medication Effectiveness Evaluation PRN Medication Effectiveness Evaluation 02/25/2024 12:00 EDT magnesium hydroxide Not Done: Patient Refused (Not Done) 02/25/2024 11:28 EDT Facial Movement Symmetric resting/crying Neurological Language Able to speak clearly Gait Steady Extremity Movement Equal Swallowing Difficulty Pills, Solids Characteristics of Communication Appropriate Characteristics of Speech Clear Facial Symmetry Symmetric Aspiration Risk Difficulty swallowing pills, Difficulty swallowing solids [place] Yes Strength All Extremities Moderate 02/25/2024 11:13 EDT Temperature Oral 36.6 DegC Heart Rate Monitored 104 bpm HI Respiratory Rate 16 br/min Systolic Blood Pressure Non-Invasive 123 mmHg Diastolic Blood Pressure Non-Invasive 83 mmHg Oxygen Therapy Room air Oxygen Saturation 94 % 02/25/2024 10:46 EDT OT Interval End Date 02/25/2024 OT Interval Start Date 02/25/2024 OT Intensity Discontinue OT Anticipated Treatments Discontinued Dear Physician Thank you for your Therapy referral. Below is the patient information for the statedinterval of treatment. Please review, modify (if necessary), sign. Thank you. OT Plan Certification Letter Inpatient OT Certification Letter 02/25/2024 10:45 EDT Rehabilitation Potential Good PT Problem List Ambulation deficits, Bed mobility deficits, Pain limiting function PT Frequency Every day PT Anticipated Treatments Bed mobility training, Gait training, Stair training, Transfer training PT Patient/Caregiver Goal home with friend support PT Bed Mobility Goal Independent PT Bed Mobility Goal Time Frame 3 day(s) PT Transfer Goal Independent PT Transfer Device Goal Front wheeled walker PT Transfer Goal Time Frame 3 day(s) PT Ambulation Goal Independent PT Ambulation Device Goal None PT Ambulation Goal Time Frame 3 day(s) PT Certification Interval End 03/04/2024 Dear Physician Thank you for your Therapy referral. Below is the patient information for the statedinterval of treatment. Please review, modify (if necessary), sign. Thank you. PT Certification Interval Start 02/25/2024 PT Plan Certification Letter Inpatient PT Certification Letter 02/25/2024 10:40 EDT Left Upper Extremity Range of Motion Within functional limits Right Upper Extremity Range of Motion Within functional limits Number of Stairs-Inside Stairs 7-8 Rail-Inside Stairs Rail on right going up Number of Stairs-Outside Stairs 0 Location Bed 2nd floor Location Main Bathroom 2nd floor OT Toilet Transfers IND Information Obtained From Patient Current History Current History Past Medical History Past Medical History Falls In Last 6 Months 0 Worker's Comp Patient No OT Supine to Sit IND OT Sit to Supine IND OT Sit to Stand IND OT Stand to Sit IND OT Bed to/from Chair IND Put On Take Off Upper Body Clothing None (4) Put On Take Off Lower Body Clothing None (4) Bathing? None (4) Toileting? None (4) Take Care Of Personal Grooming None (4) Eating Meals None (4) OT Therapy Recommended after Discharge No OT Intensity Discontinue OT Initiate/Continue Treatment No OT Tx Plan/Goals Established w Patient Yes Therapy Pain Location Neck Therapy Pain Quality Aching Therapy Pain Intensity 9 Static Sitting Independent Dynamic Sitting Independent Static Standing Independent Dynamic Standing Independent OT Evaluation Charge Low complexity Occupational Therapy Initial Eval Form Occupational Therapy Initial Eval Form Occupational Therapy Progress Note OT Initial Evaluation 02/25/2024 10:33 EDT Primary Pain Location Neck Primary Pain Intensity 9 Primary Pain Aggravating Factors Swallowing Pain Scale Type 0-10 Pain scale acetaminophen-oxycodone 2 tab(s) tab(s) 02/25/2024 10:23 EDT Basic Command Following Intact Strength-LLE Within functional limits Strength-RLE Within functional limits Left Ankle Dorsiflexion Strength 4+ Left Ankle Plantarflexion Strength 4+ Right Ankle Dorsiflexion Strength 4+ Right Ankle Plantarflexion Strength 4+ Left Lower Extremity Range of Motion Within functional limits Right Lower Extremity Range of Motion Within functional limits Number of Stairs-Inside Stairs 7-8 Rail-Inside Stairs Rail on right going up Number of Stairs-Outside Stairs 0 Location Bed 2nd floor Location Main Bathroom 2nd floor Bed Mobility Supine to Sit Min A Bed Mobility Sit to Supine Min A Transfer Sit to Stand Min A Transfer Stand to Sit Min A Ambulation Distance 2 25 ft Ambulation Level Supervised Ambulation Distance 80 ft Ambulation Quality Ambulation Quality Information Obtained From Patient Current History Current History Past Medical History Past Medical History Worker's Comp Patient No PT Problem List Ambulation deficits, Bed mobility deficits, Pain limiting function Turning Over In Bed A Little (3) Sit Down/Stand Up From Chair with Arms A Little (3) Move From Back To Sit On Bedside A Lot (2) Moving To And From Bed To Chair A Little (3) Need To Walk In Hospital Room A Little (3) Climbing 3-5 Steps With A Railing A Little (3) PT Therapy Recommended after Discharge Yes (see Discharge Recommendation) PT Frequency Every day PT Anticipated Treatments Bed mobility training, Gait training, Stair training, Transfer training PT Initiate/Continue Treatment Yes PT Plan/Goals Established w Pt/Caregiver Yes PT Patient/Caregiver Goal home with friend support PT Bed Mobility Goal Independent PT Bed Mobility Goal Time Frame 3 day(s) PT Transfer Goal Independent PT Transfer Device Goal Front wheeled walker PT Transfer Goal Time Frame 3 day(s) PT Ambulation Goal Independent PT Ambulation Device Goal None Gait 1 Distance for Goal 100 PT Ambulation Goal Time Frame 3 day(s) Therapy Pain Location Neck Therapy Pain Laterality Right Therapy Pain Intensity 8 Static Standing Supervised Dynamic Standing Supervised Basic Mobility Raw Score 17 PT Evaluation Charge Low complexity Physical Therapy Progress Note Physical Therapy Inpatient Initial Examination 02/25/2024 10:15 EDT Nail Bed Color [place] Capillary Refill < 2 seconds Dorsalis Pedis Pulse, Left 2+ Normal Dorsalis Pedis Pulse, Right 2+ Normal Radial Pulse, Left 2+ Normal Radial Pulse, Right 2+ Normal Respirations Unlabored Respiratory Pattern Regular All Lobes Breath Sounds Clear Abdomen Description Non-distended, Symmetric, Soft Abdomen Palpation Non-Tender, Soft Bowel Continence Continent Swallowing Disorder Complaints of difficulty or pain with swallowing Bowel Sounds All Quadrants Present Urinary Elimination Voiding, no difficulties Facial Movement Symmetric resting/crying Skin Temperature Warm Temperature All Extremities Warm Skin Description [place], Normal for ethnicity, Dry Skin Integrity Not intact Skin Turgor Elastic Mucous Membrane Color [place] Mucous Membrane Description Moist Hand Right 02/24/2024 20 gauge Peripheral IV Activity: Assessed Peripheral IV Dressing Condition: Clean, Dry, Intact Peripheral IV Dressing Activity: Transparent dressing Peripheral IV Line Status/Patency: Continuous infusion Peripheral IV Site Condition: No complications Peripheral IV Equipment: IV Pump Antecubital Left 20 gauge Peripheral IV Activity: Assessed Peripheral IV Dressing Condition: Clean, Dry, Intact Peripheral IV Dressing Activity: Transparent dressing Peripheral IV Line Status/Patency: Flushes easily Peripheral IV Site Condition: No complications Peripheral IV Equipment: PRN Adaptor Neurological Language Able to speak clearly Extremity Movement Equal Swallowing Difficulty Pills, Solids Characteristics of Communication Appropriate Characteristics of Speech Clear Facial Symmetry Symmetric Aspiration Risk Difficulty swallowing pills, Difficulty swallowing solids (Modified) Strength All Extremities Moderate Tone All Extremities Normal Sensation All Extremities Intact Left Upper Extremity Sensation Intact Right Upper Extremity Sensation Intact Left Lower Extremity Sensation Intact Right Lower Extremity Sensation Intact Appetite Fair Eating Difficulties Swallowing 02/25/2024 9:50 EDT What Is Your Living Situation Today I have a steady place to live Where You Live, Any Problems With None Past 12 Mo. Worry Food Run Out, No Money Never true Past 12 Mo. Food Bought Ran Out,No Money Never true Past 12 Mo. Lack Reliable Transportation No Past 12 Mo. 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, Housework, Laundry, Mealpreparation, Personal ADL, Shopping, Social participation, Work Current Home Treatments None Discharge To, Anticipated Home with family care Anticipated Discharge Date 02/25/2024 Home Treatments, Anticipated None Transition Planning Note Transition Planning Initial Assessment 02/25/2024 9:41 EDT Individuals Taught Patient Individuals Taught Patient Learning Readiness Willing to learn Learning Readiness Willing to learn Barriers to Learning None evident Barriers to Learning None evident Teaching Method Explanation Teaching Method Explanation Mechanical VTE Prophylaxis Education Purpose of Mechanical VTE Prophylaxis, Wear device at all times when in bed/chair, Always call for assistance to get out of bed, Explain the higher risk for falling, Call for assistance to re-apply device Mechanical VTE Prophylaxis Education Purpose of Mechanical VTE Prophylaxis, Wear device at all times when in bed/chair, Always call for assistance to get out of bed, Explain the higher risk for falling, Call for assistance to re-apply device Teaching Evaluation Verbalizes/Nonverbally indicates understanding Teaching Evaluation Verbalizes/Nonverbally indicates understanding Sequential Compression Device bilateral knee high applied/on Antiembolism Stocking On/Re-applied bilateral thigh high Antiembolism Stockings Form Antiembolism Stockings Form Sequential Compression Device Form Sequential Compression Device Form 02/25/2024 9:36 EDT Facial Movement Symmetric resting/crying Sensory Perception Ez No impairment Moisture Ez Rarely moist Activity Ez Walks occasionally Mobility Ez Slightly limited Nutrition Ez Adequate Friction and Shear Ez Potential problem Ez Score 19 Hospital Acquired Pressure Injury Risk None/minimal risk (score 19-23) Neurological Language Able to speak clearly Gait Steady Extremity Movement Equal Swallowing Difficulty Pills, Solids (Modified) Characteristics of Communication Appropriate Characteristics of Speech Clear Facial Symmetry Symmetric Aspiration Risk Difficulty swallowing pills, Difficulty swallowing solids (Modified) [place] Yes Pupil Size, Left 3 mm Pupil Size, Right 3 mm Strength All Extremities Moderate Estes Screen Daily History of Fall in Last 3 Months Estes No Presence of Secondary Diagnosis Estes Yes Use of Ambulatory Aid Estes None, bedrest, wheelchair, nurse IV/PRN Adapter Fall Risk Estes Yes Gait Weak or Impaired Fall Risk Estes Normal, bedrest, immobile Mental Status Fall Risk Estes Oriented to own ability Estes Fall Risk Score 35 Violence Risk Confused No Violence Risk Irritable No Violence Risk Boisterous No Violence Risk Verbal Threats No Violence Risk Physical Threats No Violence Risk Attacking Objects No Violence Risk Predictor Score 0 Violence Risk Intervention None Violence Risk Current Interventions None Individuals Taught Patient Learning Readiness Willing to learn Barriers to Learning None evident Teaching Method Explanation Teaching Evaluation Verbalizes/Nonverbally indicates understanding Activity Status ADL Awake, Resting Standard Safety ID band on, Allergy Band on, Call device within reach, Bed in low position, Wheels locked, Upper/Half-Length side-rails up, Phone within reach, Safety level maintained, Non-Slip footwear High Risk Safety Identified as high risk, Door open, Non-Slip footwear, Room check performed 02/25/2024 9:34 EDT Obtain Advance Directive Status copy placed on chart Able To Drink Order Detail Yes Able To Sign Consents Order Detail Yes Code Status Order Detail Full code IV Order Detail Yes Dialysis Schedule Order Detail N/A Has Diabetes Order Detail No Isolation Precautions Order Detail None Nurse Collect Order Detail 0 Oxygen Order Detail No Order Detail No Prior Valve Replacement Order Detail No Transport Mode Order Detail Wheelchair Advance Directive Status Advance Directive Status Civil Technician Details Form Civil Technician Details Form 02/25/2024 9:00 EDT medroxyPROGESTERone Not Done: Not Appropriate at this Time (Not Done) 02/25/2024 8:20 EDT [facility] Progress Note Progress Note 02/25/2024 8:00 EDT Facial Movement Symmetric resting/crying Neurological Language Able to speak clearly Gait Unable to assess Extremity Movement Equal Swallowing Difficulty Pills, Solids Characteristics of Communication Appropriate Characteristics of Speech Clear Facial Symmetry Symmetric Aspiration Risk Difficulty swallowing pills, Difficulty swallowing solids (Modified) Strength All Extremities Moderate ondansetron Not Done: Patient Refused (Not Done) 02/25/2024 7:50 EDT Patient Participation in Treatment Cooperative IS Predicted Volume 500 mL IS Volume Achieved 10 mL Incentive Spirometry % of Predicted 0.02 L IS Patient Effort Poor Oxygen Therapy Room air Oxygen Saturation 93 % 02/25/2024 7:17 EDT Temperature Oral 36.5 DegC Heart Rate Monitored 101 bpm HI Respiratory Rate 16 br/min Systolic Blood Pressure Non-Invasive 112 mmHg Diastolic Blood Pressure Non-Invasive 64 mmHg Oxygen Therapy Room air Oxygen Saturation 93 % 02/25/2024 6:36 EDT Activity Status ADL Sleeps intermittently Sequential Compression Device bilateral knee high applied/on Nurse Safety Checks q2hrs Performed 7pm-7am Standard Safety Safety level maintained High Risk Safety Room check performed 02/25/2024 6:35 EDT Facial Movement Symmetric resting/crying Neurological Language Able to speak clearly Extremity Movement Equal Swallowing Difficulty None Characteristics of Communication Appropriate Characteristics of Speech Clear Facial Symmetry Symmetric Aspiration Risk None 02/25/2024 6:23 EDT Urethral Indwelling/Continuous 02/24/2024 Urinary Catheter Activity: Discontinued Urinary Catheter Site Condition: No complications Urinary Catheter Output: 450 mL 02/25/2024 6:16 EDT Oxygen Therapy Room air Oxygen Activity Room air Oxygen Flow Rate 0 02/25/2024 5:33 EDT Hand Right 02/24/2024 20 gauge Peripheral IV Activity: Assessed Peripheral IV Dressing Condition: Clean, Dry, Intact Peripheral IV Dressing Activity: Transparent dressing Peripheral IV Line Status/Patency: Continuous infusion Peripheral IV Site Condition: No complications Peripheral IV Equipment: IV Pump Antecubital Left 20 gauge Peripheral IV Activity: Assessed Peripheral IV Dressing Condition: Clean, Dry, Intact Peripheral IV Dressing Activity: Transparent dressing Peripheral IV Line Status/Patency: Flushes easily Peripheral IV Site Condition: No complications Peripheral IV Equipment: PRN Adaptor 02/25/2024 5:27 EDT Primary Pain Location Neck Primary Pain Laterality Bilateral Primary Pain Intensity 7 Primary Pain Aggravating Factors Swallowing Pain Scale Type 0-10 Pain scale GI Symptoms Other: nausea resolved Abdomen Description Non-distended Abdomen Palpation Non-Tender Facial Movement Makes facial grimaces Neurological Language Able to speak clearly Extremity Movement Equal Swallowing Difficulty None Characteristics of Communication Appropriate Characteristics of Speech Clear Facial Symmetry Symmetric Level of Consciousness Alert Aspiration Risk None 02/25/2024 5:07 EDT Mechanical VTE Prophylaxis Education Not done this session Mechanical VTE Prophylaxis Education Not done this session Sequential Compression Device bilateral knee high applied/on Antiembolism Stocking On/Re-applied bilateral thigh high Antiembolism Stockings Form Antiembolism Stockings Form Sequential Compression Device Form Sequential Compression Device Form 02/25/2024 4:14 EDT Urethral Indwelling/Continuous 02/24/2024 Urinary Catheter Output: 300 mL 02/25/2024 3:34 EDT Temperature Oral 36.8 DegC Peripheral Pulse Rate 108 bpm HI Respiratory Rate 16 br/min Systolic Blood Pressure Non-Invasive 112 mmHg Diastolic Blood Pressure Non-Invasive 66 mmHg Oxygen Therapy Room air Oxygen Saturation 90 % LOW Standard Safety Safety level maintained High Risk Safety Room check performed 02/25/2024 1:55 EDT Reason for PRN medication Not Done: Not Appropriate at this Time (Not Done) Mechanical VTE Prophylaxis Education Not done this session Mechanical VTE Prophylaxis Education Not done this session Sequential Compression Device bilateral knee high applied/on Antiembolism Stocking On/Re-applied bilateral thigh high Standard Safety Safety level maintained High Risk Safety Room check performed Antiembolism Stockings Form Antiembolism Stockings Form PRN Medication Effectiveness Evaluation Not Done (Not Done) Sequential Compression Device Form Sequential Compression Device Form 02/25/2024 1:46 EDT benzocaine-menthol topical 1 lozenge(s) lozenge(s) cefazolin 2 gram(s) gram(s) Sodium Chloride 0.9% 100 mL mL 02/25/2024 1:45 EDT Facial Movement Symmetric resting/crying Neurological Language Able to speak clearly Extremity Movement Equal Swallowing Difficulty None Characteristics of Communication Appropriate Characteristics of Speech Clear Facial Symmetry Symmetric Aspiration Risk None 02/25/2024 1:30 EDT Primary Pain Location Neck Primary Pain Laterality Bilateral Primary Pain Intensity 10 Pain Scale Type 0-10 Pain scale Facial Movement Symmetric resting/crying Neurological Language Able to speak clearly Extremity Movement Equal Characteristics of Communication Appropriate Characteristics of Speech Clear Facial Symmetry Symmetric Standard Safety Safety level maintained High Risk Safety Room check performed ketorolac 30 mg mg 02/25/2024 0:30 EDT Pain Scale Assessment 0-10 Pain scale Primary Pain Location Neck Primary Pain Laterality Bilateral Primary Pain Intensity 10 Pain Scale Type 0-10 Pain scale Reason for PRN medication Pain management PRN medication effectiveness No Facial Movement Symmetric resting/crying Neurological Language Able to speak clearly Extremity Movement Equal Characteristics of Communication Appropriate Characteristics of Speech Clear Facial Symmetry Symmetric Standard Safety Safety level maintained High Risk Safety Room check performed PRN Medication Effectiveness Evaluation PRN Medication Effectiveness Evaluation 02/25/2024 0:29 EDT ondansetron 4 mg mg . Assessment and Plan [place] [employer] (ASA) physical status classification: Class II. Anesthetic Preoperative Plan Premedication: intravenous. Anesthetic technique: General. Induction: intravenously. Maintenance airway: Oral endotracheal tube. Postoperative pain management: Per surgeon. Risks discussed: nausea, vomiting, headache, sore throat, dental injury, hypotension, allergic reaction, serious complications. Informed consent: signed by patient. Digitally Signed by ROSY BERNABE APRN-CYNTHIA on 02/26/2024 09:18 AM [facility] 04-25-2024 Note ORIGINAL EXAMINATION: TWO XRAY VIEWS OF THE CHEST 02/11/2024 12:14 pm COMPARISON: 01/28/2018 HISTORY: ORDERING SYSTEM PROVIDED HISTORY: Reason for Exam: Pre-admission testing FINDINGS: The lungs are without acute focal process. There is no effusion or pneumothorax. The cardiomediastinal silhouette is without acute process. The osseous structures are without acute process. IMPRESSION: No acute process. Interpreted by: Broderick Don DO Preliminary Report By: Broderick Don DO Electronically signed By Broderick Don DO Dictated Date: 02/11/2024 4:53:20 PM Prelim Date: 02/11/2024 4:53:32 PM Sign Date: 02/11/2024 4:53:32 PM Ordering Provider: [facility]04-25-2024 Note Sinus rhythm RSR' in V1 or V2, right VCD or RVH Electronic Signature: MAYKEL SOMMER MD 02/11/2024 20:01:06[facility] 12-29-2021 NoteHNO ID: [id number] Author: Jocelyn Nova RN Service: Care Management Author Type: Registered Nurse Type: Care Mgt Progress Note Filed: 10/16/2021 5:02 PM Note Text: CARE MANAGEMENT DISCHARGE NOTE SERVICE DATE: 10/16/2021 SERVICE TIME: 4:57 PM LOS: 4 days Admission Date: 10/12/2021 DISCHARGE ARRANGEMENT (list agency and phone number) Discharge Arrangement: Home with Self Care CAREGIVER ASSESSMENT: Caregiver is ready, willing and able to meet the patient's needs as recommended by the inter-professional team:: Yes Does the patient have an acute stroke diagnosis, or has the patient had a stroke during this admission?: No Patient's transition needs and plan for meeting these needs: Home with follow up care HANDOFF COMMUNICATION: Handoff to: Other Caregiver Other Caregiver Name/Phone: Bedside RN TRANSPORTATION ARRANGEMENTS: Transportation Arrangements: Car Needs Prior to Discharge: Ready for Discharge Discharge today. Discharge orders complete. Plan is home with follow up care. Bedside RN to instruct on drain care and patient is willing/ able to learn. Drain flushes provided. SIGNATURE: Jocelyn Nova RN PATIENT NAME: Ashley Goode DATE: October 16, 2021 TIME: 4:56 PM [facility] [phone] HNO ID: [id number] Author: Jocelyn Nova RN Service: Care Management Author Type: Registered Nurse Type: Care Mgt Progress Note Filed: 10/15/2021 1:25 PM Note Text: CARE MANAGEMENT PROGRESS NOTE SERVICE DATE: 10/15/2021 SERVICE TIME: 10:01 AM LOS: 3 days Chart reviewed. Patient admitted with severe right hydronephrosis 2/2 R ureteral stricture. S/p perc neph tube by IR. Attempted to reach patient. No answer. Spoke with patient's daughter Aleksey Goode via phone ([phone]). Explained care management role. Emotional support provided. 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 Admitting notified. Patient's daughter is hopeful for her mother to return home once medically stable. Bedside RN to instruct on drain care and patient's family is willing/ able to learn. At this time, patient's daughter declined need for skilled HHC services. Patient's family will provide transportation at discharge. Will follow clinical course for further DC planning needs. SIGNATURE: Jocelyn Nova RN PATIENT NAME: Ashley Goode DATE: October 15, 2021 TIME: 10:01 AM [facility]CONTA[facility] [phone] Note HNO ID: [id number] Author: Pooja Chandler DO Service: Hospital Medicine Author Type: Physician Type: Progress Notes Filed: 10/15/2021 9:21 AM Note Text: HOSPITAL MEDICINE PROGRESS NOTE SERVICE DATE: October 15, 2021 SERVICE TIME: 9:14 AM Hospital Medicine/Primary Attending: Pooja Chandler DO NIGHT AND WEEKEND COVERAGE: After 7pm please page [phone] CHIEF COMPLAINT: R flank pain Assessment/Plan 50 yo F PMH IBS and multiple ureteral stones s/p several ureteroscopies who presents with R flank pain. She was found to have severe right hydronephrosis 2/2 R ureteral stricture s/p perc neph tube by IR 10/12/21. Stay cb negative urine cx and persistant pain in the right and left flanks and left sided severe headache. #severe right hydronephrosis 2/2 R ureteral stricture s/p perc neph tube by IR 10/12/21 -maintain perc tube to drain -appreciate urology and IR -Ucx negative but pt still very lethargic and weak -will need OP urol follow up per urology for definitive tx -plan is to go home with perc tube as of now -IVF -pain control -get blood cultures -switch abx to Unasyn to cover possible sinusitis #Intractable headache Says non-stop throbbing pain with some blurred vision Hx of sinus problems -CT head -already using toradol and hydromorphone -trial fiorricet #constipation Per pt poop 1x week! Has not gone in ~10 days! This is the first time I am hearing of this -miralax BID -senna BID -try laculose -dulcolax suppository #UTI Ucx negative -ceftriaxone -follow up cx #hypokalemia -replete and recheck #?sinusitis apparently got a CT in [place] that showed sinusitis but pt says sx not consistent with her hx of sinusitis -abx and pain meds as above SUBJECTIVE: Pt seen and examined. Very weak and tired and having lots of pain in flank and headache Patient denies CP, SOB, fevers, chills, nausea, or emesis. OBJECTIVE: PHYSICAL EXAM: BP 116/63 Pulse 63 Temp (Src) 99.1 (Oral) Resp 16 Ht 5' 4 (1.63m) Wt 172 lb 9.9 oz (78.3kg) SpO2 96% BMI 29.62 kg/(m2). O2 Therapy: Room Air Physical Exam Vitals and nursing note reviewed. Constitutional: General: She is not in acute distress. Appearance: She is ill-appearing. HENT: Head: Normocephalic and atraumatic. Mouth/Throat: Mouth: Mucous membranes are moist. Eyes: Conjunctiva/sclera: Conjunctivae normal. Cardiovascular: Rate and Rhythm: Normal rate and regular rhythm. Pulses: Normal pulses. Heart sounds: No murmur heard. No gallop. Pulmonary: Effort: No respiratory distress. Breath sounds: No wheezing or rales. Abdominal: General: There is no distension. Tenderness: There is no abdominal tenderness. There is no guarding. Genitourinary: Comments: R perc neph in place with clear urine draining Musculoskeletal: General: No swelling. Skin: General: Skin is warm and dry. Coloration: Skin is pale. Neurological: General: No focal deficit present. Mental Status: She is alert and oriented to person, place, and time. Deep Tendon Reflexes: Abnormal reflex: .firos. Psychiatric: Mood and Affect: Mood normal. MEDICATIONS: Current Facility-Administered Medications Medication Dose Route Frequency - NaCl 0.9% iv flush bag 20 mL INTRAVENOUS PRN - heparin 5,000 Units injection 5,000 Units SUBCUTANEOUS q 12 H - sodium chloride 0.9 % (flush) 3-5 mL (BD POSIFLUSH) 3-5 mL INTRAVENOUS q 12 H - NaCl 0.9% iv infusion 75 mL/hr INTRAVENOUS CONTINUOUS - ondansetron (PF) 4 mg injection (ZOFRAN) 4 mg INTRAVENOUS q 6 H PRN - sodium chloride 0.65 % 2 [place] (AYR, OCEAN) 2 [place] EACH NOSTRIL PRN - sodium chloride 0.9 % (flush) 5-10 mL (BD POSIFLUSH) 5-10 mL OTHER q 12 H - prochlorperazine 5 mg injection (COMPAZINE) 5 mg INTRAVENOUS q 6 H PRN - citalopram 20 mg tab(s) (CeleXA) 20 mg ORAL DAILY - traZODone 200 mg tab(s) (DESYREL) 200 mg ORAL AT BEDTIME - HYDROmorphone 2 mg injection (DILAUDID) 2 mg INTRAVENOUS q 6 H PRN - oxyCODONE IR 5-10 mg tab(s) (ROXICODONE) 5-10 mg ORAL q 3 H PRN - keTORolac 10 mg tab(s) (TORADOL) 10 mg ORAL q 6 H PRN - acetaminophen 1,000 mg tab(s) (TYLENOL) 1,000 mg ORAL q 6 H PRN - potassium chloride ER 40 mEq tab(s) (K-DUR, KLOR-CON) 40 mEq ORAL BID - ampicillin-sulbactam iv piggyback 3 g in NaCl 0.9% 100 mL Vial-Bag (UNASYN) 3 g INTRAVENOUS q 6 H - acetaminophen 325 mg-caffeine 40 mg-butalbital 50 mg 2 tablet (FIORICET) 2 tablet ORAL q 8 H PRN - polyethylene glycol 3350 17 g packet (MIRALAX, GLYCOLAX) 17 g ORAL BID - senna 8.6 mg tab(s) (SENOKOT) 8.6 mg ORAL BID - bisacodyl 10 mg suppository (DULCOLAX) 10 mg RECTAL ONCE - lactulose 40 g CUP (DUPHALAC, CONSTULOSE) 40 g ORAL ONCE DATA: Diagnostic tests reviewed for today's visit: CBC: No results for input(s): WBC, RBC, HB, HCT, PLT, MCV, MCH, MPV, RDW in the last 24 hours. Coags: No results for input(s): PT, INR, APTT in the last 24 hours. BMP: Recent Labs 10/15/21 062 (more content not included)...[facility] NoteHNO ID: [id number] Author: Pooja Chandler DO Service: Hospital Medicine Author Type: Physician Type: Progress Notes Filed: 10/14/2021 11:19 AM Note Text: HOSPITAL MEDICINE PROGRESS NOTE SERVICE DATE: October 14, 2021 SERVICE TIME: 11:19 AM Hospital Medicine/Primary Attending: Pooja Chandler DO NIGHT AND WEEKEND COVERAGE: After 7pm please page [phone] CHIEF COMPLAINT: R flank pain Assessment/Plan 50 yo F PMH IBS and multiple ureteral stones s/p several ureteroscopies who presents with R flank pain. She was found to have severe right hydronephrosis 2/2 R ureteral stricture s/p perc neph tube by IR 10/12/21 DISPO: home once cultures result #severe right hydronephrosis 2/2 R ureteral stricture s/p perc neph tube by IR 10/12/21 -maintain perc tube to drain -appreciate urology and IR -follow up cultures -will need OP urol follow up per urology for definitive tx -plan is to go home with per tube as of now -IVF -pain control #? UTI -ceftriaxone -follow up cx #hypokalemia -replete and recheck #headache (not sinusitis) Resolved SUBJECTIVE: Pt seen and examined. Still tired and weak Patient denies CP, SOB, fevers, chills, nausea, or emesis. OBJECTIVE: PHYSICAL EXAM: BP 97/59 Pulse 63 Temp (Src) 97.9 (Oral) Resp 18 Ht 5' 4 (1.63m) Wt 172 lb 9.9 oz (78.3kg) SpO2 96% BMI 29.62 kg/(m2). O2 Therapy: Room Air Physical Exam Vitals and nursing note reviewed. Constitutional: General: She is not in acute distress. HENT: Head: Normocephalic and atraumatic. Mouth/Throat: Mouth: Mucous membranes are moist. Eyes: Conjunctiva/sclera: Conjunctivae normal. Cardiovascular: Rate and Rhythm: Normal rate and regular rhythm. Pulses: Normal pulses. Heart sounds: No murmur heard. No gallop. Pulmonary: Effort: No respiratory distress. Breath sounds: No wheezing or rales. Abdominal: General: There is no distension. Tenderness: There is no abdominal tenderness. There is no guarding. Genitourinary: Comments: R perc neph in place with clear urine draining Musculoskeletal: General: No swelling. Skin: General: Skin is warm and dry. Neurological: General: No focal deficit present. Mental Status: She is alert and oriented to person, place, and time. Deep Tendon Reflexes: Abnormal reflex: .firos. Psychiatric: Mood and Affect: Mood normal. MEDICATIONS: Current Facility-Administered Medications Medication Dose Route Frequency - NaCl 0.9% iv flush bag 20 mL INTRAVENOUS PRN - heparin 5,000 Units injection 5,000 Units SUBCUTANEOUS q 12 H - sodium chloride 0.9 % (flush) 3-5 mL (BD POSIFLUSH) 3-5 mL INTRAVENOUS q 12 H - NaCl 0.9% iv infusion 75 mL/hr INTRAVENOUS CONTINUOUS - ondansetron (PF) 4 mg injection (ZOFRAN) 4 mg INTRAVENOUS q 6 H PRN - sodium chloride 0.65 % 2 [place] (AYR, OCEAN) 2 [place] EACH NOSTRIL PRN - sodium chloride 0.9 % (flush) 5-10 mL (BD POSIFLUSH) 5-10 mL OTHER q 12 H - prochlorperazine 5 mg injection (COMPAZINE) 5 mg INTRAVENOUS q 6 H PRN - citalopram 20 mg tab(s) (CeleXA) 20 mg ORAL DAILY - traZODone 200 mg tab(s) (DESYREL) 200 mg ORAL AT BEDTIME - HYDROmorphone 2 mg injection (DILAUDID) 2 mg INTRAVENOUS q 6 H PRN - oxyCODONE IR 5-10 mg tab(s) (ROXICODONE) 5-10 mg ORAL q 3 H PRN - keTORolac 10 mg tab(s) (TORADOL) 10 mg ORAL q 6 H PRN - acetaminophen 1,000 mg tab(s) (TYLENOL) 1,000 mg ORAL q 6 H PRN - cefTRIAXone iv piggyback 2 g in dextrose (iso-osmotic) 50 mL (ROCEPHIN) 2 g INTRAVENOUS q 24 H DATA: Diagnostic tests reviewed for today's visit: CBC: No results for input(s): WBC, RBC, HB, HCT, PLT, MCV, MCH, MPV, RDW in the last 24 hours. Coags: No results for input(s): PT, INR, APTT in the last 24 hours. BMP: Recent Labs 10/14/21 0815 NA 133* K 3.4* CHLOR 101 CO2 21* BUN 6* CREAT 0.78 GLUC 99 CMP: Recent Labs 10/14/21 0815 NA 133* K 3.4* CHLOR 101 CO2 21* BUN 6* CREAT 0.78 GLUC 99 CA 8.2* ANION 11 Cardiac Enzymes: No results for input(s): CK, MB, CKMB, TROPT in the last 24 hours. Liver Function, Amylase, Lipase: No results for input(s): TPROT, ALB, ALT, AST, ALKPHOS, TBILI, AMYLASE, LIPASE, LACTATE in the last 24 hours. MG/PHOS: No results for input(s): MG, P in the last 24 hours. Renal Panel: Recent Labs 10/14/21 0815 CREAT 0.78 BUN 6* GLUC 99 CA 8.2* CHLOR 101 K 3.4* CO2 21* NA 133* Heme: No results for input(s): RETICP, ABSRETIC, LD, DIANE, FE, TIBC, TRANSFERSAT in the last 24 hours. No results found for: UALBCR Medication and Non-Pharmacologic VTE Prophylaxis/Anticoagulants Anticoagulant AND Antiplatelet Medications (From admission, onward) Start Dose Route Frequency Last Action Ordered Stop 10/13/21 0000 heparin 5,000 Units injection (Medical Risk Categories) 5,000 Units SUBCUTANEOUS EVERY 12 HOURS Given, 10/14 0812 10/12/21 2356 -- Lines, Drains, and Airways Line Peripheral 10/13/212030 Left Antecubital 22 Gauge <1 da (more content not included)...[facility]12-27-2021 NoteHNO ID: [id number] Author: Ousmane Spain MD Service: Urology Author Type: Physician Type: Progress Notes Filed: 10/16/2021 9:12 AM Note Text: UROLOGY PROGRESS NOTE PATIENT NAME: Ashley Goode DATE OF : 1970 ADMISSION DATE: 10/12/2021 6:18 PM Subjective S/P R PNT placement with IR 10/12 PM Patient states that right pain is better, but headache and left abdominal pain have returned - dilaudid has not helped Has voided spontaneously Objective VS: BP 104/63 Pulse 86 Temp 37.2 ?C (99 ?F) (Oral) Resp 18 Ht 162.6 cm (5' 4) Wt 78.3 kg (172 lb 9.9 oz) SpO2 94% BMI 29.63 kg/m? I AND O - 24hr: Intake/Output Summary (Last 24 hours) at 10/14/2021 0717 Last data filed at 10/14/2021 0538 Gross per 24 hour Intake 0 ml Output 995 ml Net -995 ml Physical Exam: General: Neck: Resp: Abdomen: No acute distress Supple Normal effort Soft, non-tender, nondistended : R PNT draining dark yellow urine. Labs and Imaging Studies LABS: BMP: Glucose (mg/dL) Date Value 10/13/2021 125 10/19/2009 84 Potassium (mmol/L) Date Value 10/13/2021 3.4 10/19/2009 3.5 Sodium (mmol/L) Date Value 10/13/2021 133 10/19/2009 140 Chloride (mmol/L) Date Value 10/13/2021 104 10/19/2009 106 CO2 (mmol/L) Date Value 10/13/2021 20 10/19/2009 23 Creatinine (mg/dL) Date Value 10/13/2021 0.76 10/19/2009 0.75 BUN (mg/dL) Date Value 10/13/2021 7 10/19/2009 7 Anion Gap (mmol/L) Date Value 10/13/2021 9 10/19/2009 11 Calcium (mg/dL) Date Value 10/19/2009 8.6 Calcium, Total (mg/dL) Date Value 10/13/2021 7.8 CBC: Hemoglobin (g/dL) Date Value 10/13/2021 12.0 10/19/2009 11.9 Hematocrit (%) Date Value 10/13/2021 36.0 10/19/2009 35.6 WBC (k/uL) Date Value 10/13/2021 12.61 10/19/2009 6.09 Platelet Count (k/uL) Date Value 10/13/2021 215 10/19/2009 228 Urinalysis: Specific [place], Ur Date Value Ref Range Status 10/13/2021 >1.030 (H) 1.005 - 1.030 Final Comment: If specific gravity is <1.005 then results may be falsely negative. Serum HCG is recommended. 10/17/2009 1.009 1.005 - 1.030 Final Glucose, Urine Date Value Ref Range Status 10/17/2009 Negative NEGAT mg/dL Final Bilirubin, Urine Date Value Ref Range Status 10/17/2009 Negative NEGAT Final Ketones, Urine Date Value Ref Range Status 10/17/2009 Negative NEGAT Final Hemoglobin/Blood,Ur Date Value Ref Range Status 10/17/2009 Negative NEGAT Final Protein, Urine Date Value Ref Range Status 10/17/2009 Negative NEGAT mg/dL Final Nitrites Date Value Ref Range Status 10/17/2009 Negative NEGAT Final WBC, Urine Date Value Ref Range Status 10/17/2009 0-5 R05 /HPF Final Urine Culture: No results found for: URCUL RADIOLOGY: CT: IMPRESSION: Moderate right hydroureteronephrosis with 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 No nephroureterolithiasis within the limitations of contrast present in the collecting systems. Assessment and Plan ASSESSMENT: 50 year old female history of several ureteroscopies for previous stone disease, possible psoas hitch with boari flap, now with R ureteral stricture, severe R hydro s/p R PNT placement 10/12. PLAN: - maintain R PNT to straight drain - labs pending this AM - could try NSAIDs for pain as dilaudid not helping - cont Abx - urine culture pending - recommend home with PNT for ureteral rest - outpatient renal lasix scan - patient can follow up with Dr. Prabhakar or [facility] urology for future, definitive mgmt - No further inpatient Urologic surgical intervention indicated Manolo Delong MD Urology, PGY-3 10/14/2021 7:17 AM Page stone banker Urology resident with questions I saw and evaluated the patient. Discussed with the resident and agree with resident's findings and plan as documented in the resident's note. Plan on followup in with OSH urologist upon D/c. Ousmane Spain, [facility]12-26-2021 NoteHNO ID: [id number] Author: Pooja Chandler DO Service: Hospital Medicine Author Type: Physician Type: Progress Notes Filed: 10/13/2021 11:43 AM Note Text: HOSPITAL MEDICINE PROGRESS NOTE SERVICE DATE: October 13, 2021 SERVICE TIME: 10:54 AM Hospital Medicine/Primary Attending: Pooja Chandler DO NIGHT AND WEEKEND COVERAGE: After 7pm please page [phone] CHIEF COMPLAINT: R flank pain Assessment/Plan 50 yo F PMH IBS and multiple ureteral stones s/p several ureteroscopies who presents with R flank pain. She was found to have severe right hydronephrosis 2/2 R ureteral stricture s/p perc neph tube by IR 10/12/21 #severe right hydronephrosis 2/2 R ureteral stricture s/p perc neph tube by IR 10/12/21 -maintain perc tube to drain -appreciate urology and IR -follow up cultures -will need OP urol follow up per urology for definitive tx -plan is to go home with per tube as of now -IVF #? UTI -ceftriaxone -follow up cx #hypokalemia -replete and recheck #headache (not sinusitis) Resolved SUBJECTIVE: Pt seen and examined. Feels much better. Tired and weak Patient denies CP, SOB, fevers, chills, nausea, or emesis. OBJECTIVE: PHYSICAL EXAM: BP 92/58 Pulse 61 Temp (Src) 97.9 (Oral) Resp 18 Ht 5' 4 (1.63m) Wt 151 lb (68.5kg) SpO2 97% BMI 25.91 kg/(m2). O2 Therapy: Room Air Physical Exam Vitals and nursing note reviewed. Constitutional: General: She is not in acute distress. HENT: Head: Normocephalic and atraumatic. Mouth/Throat: Mouth: Mucous membranes are moist. Eyes: Conjunctiva/sclera: Conjunctivae normal. Cardiovascular: Rate and Rhythm: Normal rate and regular rhythm. Pulses: Normal pulses. Heart sounds: No murmur heard. No gallop. Pulmonary: Effort: No respiratory distress. Breath sounds: No wheezing or rales. Abdominal: General: There is no distension. Tenderness: There is no abdominal tenderness. There is no guarding. Genitourinary: Comments: R perc neph in place with clear urine draining Musculoskeletal: General: No swelling. Skin: General: Skin is warm and dry. Neurological: General: No focal deficit present. Mental Status: She is alert and oriented to person, place, and time. Psychiatric: Mood and Affect: Mood normal. MEDICATIONS: Current Facility-Administered Medications Medication Dose Route Frequency - NaCl 0.9% iv flush bag 20 mL INTRAVENOUS PRN - heparin 5,000 Units injection 5,000 Units SUBCUTANEOUS q 12 H - sodium chloride 0.9 % (flush) 3-5 mL (BD POSIFLUSH) 3-5 mL INTRAVENOUS q 12 H - NaCl 0.9% iv infusion 75 mL/hr INTRAVENOUS CONTINUOUS - cefTRIAXone iv piggyback 1 g in dextrose (iso-osmotic) 50 mL (ROCEPHIN) 1 g INTRAVENOUS q 24 H - ondansetron (PF) 4 mg injection (ZOFRAN) 4 mg INTRAVENOUS q 6 H PRN - sodium chloride 0.65 % 2 [place] (AYR, OCEAN) 2 [place] EACH NOSTRIL PRN - sodium chloride 0.9 % (flush) 5-10 mL (BD POSIFLUSH) 5-10 mL OTHER q 12 H - HYDROmorphone 2 mg injection (DILAUDID) 2 mg INTRAVENOUS q 6 H PRN - prochlorperazine 5 mg injection (COMPAZINE) 5 mg INTRAVENOUS q 6 H PRN DATA: Diagnostic tests reviewed for today's visit: CBC: Recent Labs 10/13/21 0904 WBC 12.61* RBC 3.91 HB 12.0 HCT 36.0 PLT 215 MCV 92.1 MCH 30.7 MPV 11.2 Coags: Recent Labs 10/12/21 2018 INR 1.0 BMP: Recent Labs 10/13/21 0903 10/13/21 0304 NA -- 133* K 3.4* -- CHLOR -- 104 CO2 -- 20* BUN -- 7 CREAT -- 0.76 GLUC -- 125* CMP: Recent Labs 10/13/21 0903 10/13/21 0304 NA -- 133* K 3.4* -- CHLOR -- 104 CO2 -- 20* BUN -- 7 CREAT -- 0.76 GLUC -- 125* CA -- 7.8* ANION -- 9 Cardiac Enzymes: No results for input(s): CK, MB, CKMB, TROPT in the last 24 hours. Liver Function, Amylase, Lipase: No results for input(s): TPROT, ALB, ALT, AST, ALKPHOS, TBILI, AMYLASE, LIPASE, LACTATE in the last 24 hours. MG/PHOS: No results for input(s): MG, P in the last 24 hours. Renal Panel: Recent Labs 10/13/21 0903 10/13/21 0304 CREAT -- 0.76 BUN -- 7 GLUC -- 125* CA -- 7.8* CHLOR -- 104 K 3.4* -- CO2 -- 20* NA -- 133* Heme: No results for input(s): RETICP, ABSRETIC, LD, DIANE, FE, TIBC, TRANSFERSAT in the last 24 hours. No results found for: UALBCR Medication and Non-Pharmacologic VTE Prophylaxis/Anticoagulants Anticoagulant AND Antiplatelet Medications (From admission, onward) Start Dose Route Frequency Last Action Ordered Stop 10/13/21 0000 heparin 5,000 Units injection (Medical Risk Categories) 5,000 Units SUBCUTANEOUS EVERY 12 HOURS Ordered 10/12/21 2356 -- Lines, Drains, and Airways Line Peripheral 10/12/21 2203 Short Right Antecubital 20 Gauge <1 day Drain Drain/Tube 10/12/21 2315 Pigtail Right Posterior Back <1 day Reviewed lines and needs to be continued: REASONS: Intravenous fluids and Intravenous antibiotics VTE Prophylaxis: Heparin 5000 units Sub Q BID Disposition: To be determined Functional Status Prior (more content not included)...[facility]12-26-2021 NoteHNO ID: [id number] Author: Gamaliel Tomas DO Service: Urology Author Type: Resident Type: Progress Notes Filed: 10/13/2021 7:27 AM Note Text: Attestation signed by Yan Maloney Jr., MD at 10/13/2021 11:18 AM I saw and evaluated the patient. Discussed with the resident and agree with resident's findings and plan as documented in the resident's note. Yan Maloney Jr, MD UROLOGY PROGRESS NOTE PATIENT NAME: Ashley Goode DATE OF : 1970 ADMISSION DATE: 10/12/2021 6:18 PM Subjective S/P R PNT placement with IR 1225 PM Patient states that pain is somewhat better, but still significant Has some nausea this AM Objective VS: BP 109/63 Pulse 90 Temp 36.5 ?C (97.7 ?F) (Oral) Resp 18 Ht 162.6 cm (5' 4) Wt 68.5 kg (151 lb) SpO2 97% BMI 25.92 kg/m? I AND O - 24hr: Intake/Output Summary (Last 24 hours) at 10/13/2021 0725 Last data filed at 10/12/2021 2142 Gross per 24 hour Intake 50 ml Output 300 ml Net -250 ml Physical Exam: General: Neck: Resp: Abdomen: No acute distress Supple Normal effort Soft, non-tender, nondistended : R PNT draining dark yellow urine. R flank/CVA TTP Labs and Imaging Studies LABS: BMP: Glucose (mg/dL) Date Value 10/13/2021 125 10/19/2009 84 Potassium Date Value 10/13/2021 Comment: Unable to assay due to interference from hemolysis. Suggest reorder as clinically indicated. 10/19/2009 3.5 mmol/L Sodium (mmol/L) Date Value 10/13/2021 133 10/19/2009 140 Chloride (mmol/L) Date Value 10/13/2021 104 10/19/2009 106 CO2 (mmol/L) Date Value 10/13/2021 20 10/19/2009 23 Creatinine (mg/dL) Date Value 10/13/2021 0.76 10/19/2009 0.75 BUN (mg/dL) Date Value 10/13/2021 7 10/19/2009 7 Anion Gap (mmol/L) Date Value 10/13/2021 9 10/19/2009 11 Calcium (mg/dL) Date Value 10/19/2009 8.6 Calcium, Total (mg/dL) Date Value 10/13/2021 7.8 CBC: Hemoglobin (g/dL) Date Value 10/19/2009 11.9 Hematocrit (%) Date Value 10/19/2009 35.6 WBC (k/uL) Date Value 10/19/2009 6.09 Platelet Count (k/uL) Date Value 10/19/2009 228 Urinalysis: Specific [place], Ur Date Value Ref Range Status 10/13/2021 >1.030 (H) 1.005 - 1.030 Final Comment: If specific gravity is <1.005 then results may be falsely negative. Serum HCG is recommended. 10/17/2009 1.009 1.005 - 1.030 Final Glucose, Urine Date Value Ref Range Status 10/17/2009 Negative NEGAT mg/dL Final Bilirubin, Urine Date Value Ref Range Status 10/17/2009 Negative NEGAT Final Ketones, Urine Date Value Ref Range Status 10/17/2009 Negative NEGAT Final Hemoglobin/Blood,Ur Date Value Ref Range Status 10/17/2009 Negative NEGAT Final Protein, Urine Date Value Ref Range Status 10/17/2009 Negative NEGAT mg/dL Final Nitrites Date Value Ref Range Status 10/17/2009 Negative NEGAT Final WBC, Urine Date Value Ref Range Status 10/17/2009 0-5 R05 /HPF Final Urine Culture: No results found for: URCUL RADIOLOGY: Assessment and Plan ASSESSMENT: 50 year old female history of several ureteroscopies for previous stone disease, possible psoas hitch with boari flap, now with R ureteral stricture, severe R hydro s/p R PNT placement 10/12. PLAN: - maintain R PNT to straight drain - cont CTX - urine culture pending - recommend home with PNT for ureteral rest - outpatient renal lasix scan - patient can follow up with Dr. Prabhakar or [facility] urology for future, definitive mgmt - will discuss with attending Gamaliel Tomas DO Urology, PGY-[address] [place], [place] [address]Evaluation + Plan note Future Appointments Appointment Date:11/04/2022 09:00:00 AM Scheduled Provider:DOV MEADE DO Location:[facility] Appointment Type: OV Diagnostic Tests Pending * Testosterone, Free and Total 09/26/22 [facility] Evaluation + Plan note Future Appointments Appointment Date:02/23/2023 02:00:00 PM Scheduled Provider:DOV MEADE DO Location:[facility] Appointment Type:PC OV [facility] Evaluation + Plan note Future Appointments Appointment Date:11/10/2023 03:45:00 PM Scheduled Provider:CHANEL YOUSIF MD Location:[facility] Appointment Type:[facility] Future Scheduled Tests Laboratory* Vitamin B12 Level 10/27/23 Radiology* MA Mammo Screening Bilateral w/ Dylan 09/29/23 * XR Shoulder Minimum 2 Views Right 08/28/23 * XR Spine Thoracic 2 Views 07/29/23 * XR Spine Cervical AP/LAT 07/29/23 [facility] Evaluation + Plan note Future Appointments Appointment Date:11/10/2023 03:45:00 PM Scheduled Provider:CHANEL YOUSIF MD Location:[facility] Appointment Type: OV Diagnostic Tests Pending * Antinuclear Antibody Screen, Serum 11/05/23 * Rheumatoid Factor 11/05/23 Future Scheduled Tests Laboratory* Vitamin B12 Level 10/27/23 Radiology* MA Mammo Screening Bilateral w/ Dylan 09/29/23 * XR Shoulder Minimum 2 Views Right 08/28/23 * XR Spine Thoracic 2 Views 07/29/23 * XR Spine Cervical AP/LAT 07/29/23 [facility] Evaluation + Plan note Future Appointments Appointment Date:12/14/2023 03:00:00 PM Scheduled Provider:DOV MEADE DO Location:[facility] Appointment Type:PC OV Future Scheduled Tests Laboratory* Vitamin B12 Level 10/27/23 Radiology* MA Mammo Screening Bilateral w/ Dylan 09/29/23 * XR Shoulder Minimum 2 Views Right 08/28/23 * XR Spine Thoracic 2 Views 07/29/23 * XR Spine Cervical AP/LAT 07/29/23 [facility] Evaluation + Plan note Future Appointments Appointment Date:02/16/2024 11:30:00 AM Scheduled Provider:DOV MEADE DO Location:[facility] Appointment Type:PC OV Pre Op Appointment Date:02/29/2024 03:00:00 PM Scheduled Provider:DOV MEADE DO Location:[facility] Appointment Type:PC OV Future Scheduled Tests Laboratory* Vitamin B12 Level 10/27/23 Radiology* MA Mammo Screening Bilateral w/ Dylan 09/29/23 * XR Shoulder Minimum 2 Views Right 08/28/23 * XR Spine Thoracic 2 Views 07/29/23 * XR Spine Cervical AP/LAT 07/29/23 [facility] Evaluation + Plan note Future Appointments Appointment Date:02/29/2024 03:00:00 PM Scheduled Provider:DOV MEADE DO Location:[facility] Appointment Type:PC OV Appointment Date:04/15/2024 09:00:00 AM Scheduled Provider: Location:[facility] Appointment Type:MA Mammogram Screening Bilateral w/ Dylan Future Scheduled Tests Laboratory* Vitamin B12 Level 10/27/23 Radiology* MA Mammo Screening Bilateral w/ Dylan 09/29/23 * MA Mammo Screening Bilateral w/ Dylan 04/15/24 * XR Shoulder Minimum 2 Views Right 08/28/23 * XR Spine Thoracic 2 Views 07/29/23 * XR Spine Cervical AP/LAT 07/29/23 [facility] Evaluation + Plan note Future Appointments Appointment Date:04/18/2024 09:30:00 AM Scheduled Provider: Location:[facility] Appointment Type:[facility] Future Scheduled Tests Laboratory* Vitamin B12 Level 10/27/23 Radiology* MA Mammo Screening Bilateral w/ Dylan 09/29/23 * XR Shoulder Minimum 2 Views Right 08/28/23 * XR Spine Thoracic 2 Views 07/29/23 * XR Spine Cervical AP/LAT 07/29/23 [facility] Evaluation + Plan note Future Appointments Appointment Date:06/29/2024 01:30:00 PM Scheduled Provider:DOV MEADE DO Location:[facility] Appointment Type:PC OV Appointment Date:10/31/2024 03:30:00 PM Scheduled Provider:DOV MEADE DO Location:[facility] Appointment Type: OV Future Scheduled Tests Laboratory* Vitamin B12 Level 10/27/23 Radiology* MA Mammo Screening Bilateral w/ Dylan 09/29/23 * US Breast Left Limited 10/20/24 * XR Shoulder Minimum 2 Views Right 08/28/23 * XR Spine Thoracic 2 Views 07/29/23 * XR Spine Cervical AP/LAT 07/29/23 [facility] RadMitaluation + Plan note Future Appointments Appointment Date:10/31/2024 03:30:00 PM Scheduled Provider:DOV MEADE DO Location:[facility] Appointment Type: OV Future Scheduled Tests Laboratory* TSH with Reflex to FT4 06/29/24 * Vitamin B12 Level 06/29/24 * Complete Blood Count 06/29/24 * Lipid Profile 06/29/24 * Complete Metabolic Panel 06/29/24 Radiology* MA Mammo Screening Bilateral w/ Dylan 09/29/23 * US Breast Left Limited 10/20/24 * XR Shoulder Minimum 2 Views Right 08/28/23 [facility] evaluation + Plan note Future Appointments Appointment Date:12/09/2024 10:45:00 AM Scheduled Provider:DOV MEADE DO Location:[facility] Appointment Type:PC OV Future Scheduled Tests Laboratory* TSH with Reflex to FT4 06/29/24 * Vitamin B12 Level 06/29/24 * Complete Blood Count 06/29/24 * Lipid Profile 06/29/24 * Complete Metabolic Panel 06/29/24 [facility] Evaluation + Plan note Future Appointments Appointment Date:01/06/2025 09:00:00 AM Scheduled Provider:DOV MEADE DO Location:[facility] Appointment Type:[facility] Future Scheduled Tests Laboratory* TSH with Reflex to FT4 06/29/24 * Vitamin B12 Level 06/29/24 * Complete Blood Count 06/29/24 * Lipid Profile 06/29/24 * Complete Metabolic Panel 06/29/24 Radiology* MA Mammo Diagnostic Left w/ Dylan 04/30/25 * US Breast Left Complete 04/30/25 [facility] evaluation + Plan note Future Appointments Appointment Date:02/15/2025 03:00:00 PM Scheduled Provider: Location:[facility] Appointment Type:[facility] Appointment Date:02/17/2025 11:00:00 AM Scheduled Provider: Location:[facility] Appointment Type:[facility] Appointment Date:02/20/2025 03:00:00 PM Scheduled Provider: Location:[facility] Appointment Type:[facility] Appointment Date:02/22/2025 03:00:00 PM Scheduled Provider: Location:[facility] Appointment Type:[facility] Appointment Date:02/24/2025 03:00:00 PM Scheduled Provider: Location:[facility] Appointment Type:[facility] Appointment Date:02/27/2025 03:00:00 PM Scheduled Provider: Location:[facility] Appointment Type:[facility] Appointment Date:03/01/2025 03:00:00 PM Scheduled Provider: Location:[facility] Appointment Type:[facility] Appointment Date:03/03/2025 03:00:00 PM Scheduled Provider: Location:[facility] Appointment Type:[facility] Future Scheduled Tests Laboratory* TSH with Reflex to FT4 06/29/24 * Vitamin B12 Level 06/29/24 * Complete Blood Count 06/29/24 * Lipid Profile 06/29/24 * Complete Metabolic Panel 06/29/24 Radiology* MA Mammo Diagnostic Left w/ Dylan 04/30/25 * US Breast Left Complete 04/30/25 [facility] Evaluation + Plan note Future Appointments Appointment Date:03/23/2025 03:00:00 PM Scheduled Provider: Location:[facility] Appointment Type:[facility] Appointment Date:03/28/2025 03:00:00 PM Scheduled Provider: Location:[facility] Appointment Type:[facility] Appointment Date:03/30/2025 03:00:00 PM Scheduled Provider: Location:[facility] Appointment Type:[facility] Appointment Date:04/04/2025 03:00:00 PM Scheduled Provider: Location:[facility] Appointment Type:[facility] Appointment Date:04/06/2025 03:00:00 PM Scheduled Provider: Location:[facility] Appointment Type:[facility] Appointment Date:04/10/2025 03:30:00 PM Scheduled Provider:DOV MEADE DO Location:[facility] Appointment Type: OV Future Scheduled Tests Laboratory* TSH with Reflex to FT4 03/02/25 * Vitamin B12 Level 03/02/25 * Complete Blood Count 03/02/25 * Lipid Profile 03/02/25 * Complete Metabolic Panel 03/02/25 Radiology* MA Mammo Diagnostic Left w/ Dylan 04/30/25 * US Breast Left Complete 04/30/25 [facility] Evaluation + Plan note Future Appointments Appointment Date:04/06/2025 03:00:00 PM Scheduled Provider: Location:[facility] Appointment Type:[facility] Appointment Date:04/10/2025 03:30:00 PM Scheduled Provider:DOV MEADE DO Location:[facility] Appointment Type:PC OV Future Scheduled Tests Laboratory* TSH with Reflex to FT4 03/02/25 * Vitamin B12 Level 03/02/25 * Complete Blood Count 03/02/25 * Lipid Profile 03/02/25 * Complete Metabolic Panel 03/02/25 Radiology* MA Mammo Diagnostic Left w/ Dylan 04/30/25 * US Breast Left Complete 04/30/25 [facility] Evaluation noteNo assessment information available [facility] Work Phone: Evaluation note* Diagnosis Onset Date Resolution Status Calculus of distal left ureter acute Intractable pain acute Recurrent nephrolithiasis ch ronic [facility] Work Phone: Evaluation note* Diagnosis Onset Date Resolution Status Admit Date Abdominal pain acute July 06, 2025 9:55am Bloating acute June 9:55am Family history of colon cancer acute July 06, 2025 9:55am Chronic constipation chronic Sept emb2024 9:55am [facility] Work Phone: Hospital course Narrative No data available for this section [facility] Hospital Discharge instructions No data available for this section [facility] Progress note No data available for this section [facility] Progress note Author Rossi Abdi [facility] Note Date/Time July 06, 2025 10:50am [facility] [address] [place] [address] OFFICE VISIT Date of Service: 07/06/25 MR#: [id number] Acct: [id number] Name: ASHLEY GOODE Rep #: [id number] : 1970 Provider: VETO Abdi Age/Sex: 54/F [facility] Status: Signed Intake Vital Signs 01/03/25 16:14 07/06/25 10:16 Height 5 ft 4 in 5 ft 4 in Weight: 196 lb BMI 33.6 BP 125/78 H Pulse 97 Temp 97.9 F Temp Source Temporal Pulse Oximetry (%) 94 Oxygen Delivery Method room air Intake Visit Reasons: Pre-Colonoscopy Screening/Fam Hx Colon CA Chief Complaint: stomach problems Vice President Required: No Accompanied by: Self Is patient in pain?: No Allergies meperidine HCl (From Demerol) Allergy (Verified 07/06/25 10:17) Other morphine Allergy (Verified 07/06/25 10:17) Rash Medications ?Medication ?Instructions ?Recorded ?Confirmed ?Type trazodone 100 mg tablet 200 mg PO QHS 10/12/2107/06 History nitrofurantoin macrocrystal 100 mg 100 mg PO QHS Check with primary 06/16/22 07/06/25 History capsule doctor estradiol 1 mg tablet 1 mg PO DAILY 10/25/2407/06 History medroxyprogesterone 5 mg tablet 5 mg PO DAILY 10/25/24 07/06/25 History omeprazole 20 mg capsule,delayed 20 mg PO DAILY 07/06/25 History release ondansetron 4 mg disintegrating 4 mg PO Q8H PRN nausea and 01/03/25 07/06/25 Rx tablet vomiting #20 tabs sodium sul 1.479 gram-potas ch See Rx Instructions PO .COMPLEX 07/06/25 07/06/25 Rx 0.188 gram-magnes sul 0.225 gram #28 tabs tablet (Sutab) [facility] Medical History Kidney disease UTI (urinary tract infection) High cholesterol History of IBS GERD (gastroesophageal reflux disease) Depression Fatigue IBS (irritable bowel syndrome) Kidney stones Insomnia Anxiety Ovarian cyst Tubal Personal history of kidney stones Hx of renal impairment Surgical History History of spinal fusion (~02/2024) History of elbow surgery History of lithotripsy H/O ovarian cystectomy H/O dilation and curettage Hx of tubal ligation History of Family History Mother Colon cancer Father Diabetes Other Anxiety Arthritis CVA (cerebral vascular accident) Depression Kidney disease Social History housing: condominium number of children: 2 current occupational status: employed current occupation: [id number] Smoking Status: Never smoker alcohol intake: current details: rarely substance use type: does not use frequency: 3-4 times per week HPI HPI Chief Complaint: stomach problems Details: 54-year-old female presents for initial consultation with PMH significant for IBS-C, prediabetes, GERD on PPI, presents for consultation post admission for complaints of right sided abdominal pain. She was seen by gastroenterology during her March admission at which point she had been experiencing severe onset of acute abdominal pain with no known triggers. She described this pain as intense, sharp, and stabbing affecting the RUQ and RLQ. She reports a history of moderate to severe constipation going up to 7 to 10 days without a bowel movement if not longer. She had reported failing multiple medical therapies butcould only recall MiraLAX and Linzess with certainty. She also had reported previous bidirectional endoscopies were unremarkable. She was also seen by surgery during admission. CT scan of her abdomen and pelvis was completed that showed no acute findings with bilateral nonobstructive kidney stones. She was found to have a stable hepatic lobe cyst with unremarkable gallbladder, spleen, pancreas, and adrenal glands. She then had an ultrasound of her abdomen that showed no gallstones with a common bile duct slightly dilated at 8 mm, no findings of acute cholecystitis. She was found to have a normal white count of 5.9 with a stable hemoglobin. Total bilirubin and LFTs were all within normal limits. No surgical interventions were planned. CT abdomen and pelvis with oral contrast only completed 04/17/2025 suggested mildwall thickening of the right ureter; otherwise unremarkable. Abdominal ultrasound completed April 17, 2025 revealed a mildly dilated CBD of 8 mm and gallbladder wall in the upper limits of normal. No gallstones. CBC: 04/19/2025 WNL BMP 04/19/2025 unremarkable - Mom passed of colon CA, diagnosed at 48y/o - reports her last colonoscopy was 5 years ago - c/o abdominal pain and bloating constant, worse after meals - reports she can go >3 weeks without a BM - reports she only has a BM when using a fleets enema - reports failing Linzess, Miralax, Amitiza - gleason snot recall ever trialing Trulance or Ibsrela - Dulcolax stool softener every evening - constipation is getting worse - she is using fleets enemas once a week, every 3-4 days - stools are hard - reports her abdominal pain is worse after a BM with occasional nausea - denies any emesis - reports her last colonoscopy was in [place] - denies any h/o colon polyps - denies any weight loss - denies any bleeding - Sitz Marker 15 years ago showed slow transit - record review as noted above including recent admission The patient is a 54-year-old female presenting with chronic constipation and abdominal bloating. The patient's symptoms initiated approximately 21 years ago,coinciding with the of her daughter. She reports a history of constipationcharacterized by infrequent bowel movements, sometimes extending to three and a half weeks without relief unless facilitated by a fleet enema, which she resortsto using approximately once a week. The patient has trialed various modifications to her diet, including the elimination of gluten and dairy, with no symptom relief. Dietary fiber intake ishigh, consisting of fruits, vegetables, and fiber cereal. She maintains adequatehydration by consuming mostly water. Despite these efforts, the abdominal bloating persists, described as causing significant discomfort and pain without needing food intake to trigger symptoms. Symptomatically, the patient experiences severe bloating and abdominal discomfort services in the absence of dietary triggers. Medical management attempts have included various pharmacotherapy trials such asLinzess, MiraLAXUS, and Amitiza, none of which have successfully ameliorated theconstipation. She has also utilized roic-fkh-fefmklv options, such as Dulcolax, without success. Previous interventions have emphasized gastroenterological exploration, yet symptom management has proven elusive. The patient undergoes routine care for additional medical issues, including recurring kidney stones requiring urological interventions. Family medical history is significant for the of her mother from colon cancer at the age of 54. The patient herself has undergone multiple colonoscopies, the last being approximately five years prior, with no history of colon polyps. ROS Const Constitutional: Positive for headache(s) and weakness; No fatigue, fever(s) or weight change ENT ENT: Positive for headache(s); No difficulty swallowing Cardio Cardiology: Positive for leg pain with exertion Gastro GI: Positive for abdominal pain, bloating, constipation and heartburn; No belching, change in stool character, coffee ground emesis, cramping, diarrhea, difficulty swallowing, feeling full early, excessive flatus, incontinent of stools, Vomiting blood/hematemesis, Blood in stool, loose stools,Black,tarry stools, nausea/dyspepsia, pain with swallowing, vomiting or other Musc Musculoskeletal: Positive for abnormal gait, joint pain, back pain, muscle cramps, muscle weakness, numbness, tingling, sciatica, restless legs, leg pain at night and leg pain with exertion Skin Skin: No yellowing of the eye or itchy eyes Neuro Neurology: Positive for abnormal gait, weakness, headache(s), numbness, tinglingand restless legs Psych Psychiatric: No anxiety and No depression Endo Endocrine: No fatigue or weight change Aller/Imm Allergy/Immunologic: No itchy eyes Daniel/Lymp Hematologic/Lymphatic: No easy bleeding or easy bruising ROS Narrative - Gastrointestinal: Reports chronic constipation, abdominal bloating, and discomfort. Denies nausea, vomiting, and hematochezia. - Constitutional: Reports weight gain. - Genitourinary: Denies current kidney issues but has a history of kidney stones. - Respiratory: Denies any current lung disease. - Hematologic: Denies fevers. Exam Const General: cooperative, healthy appearing, no acute distress and well developed Nutritional Appearance: well nourished and overweight Orientation: alert and oriented x3 HENMT Head: normocephalic Ears: hearing grossly normal bilaterally Mouth: moist mucous membranes Teeth and gingiva: dentition normal Eyes Conjunctivae: conjunctivae normal Sclera: sclerae normal Neck Neck: normal visual inspection, full ROM and trachea midline Resp Effort & Inspection: normal respiratory effort, able to speak in complete sentences and symmetric chest movement Neuro General: patient alert and patient oriented x3 Cranial Nerves: other (CN's grossly intact, non-focal exam) Cognition: normal cognition Speech: speech normal Gait: normal gait Psych Appearance: grossly normal and well kempt Affect: normal affect Attitude: cooperative Thought Process: normal Assessment and Plan Assessment and Plan (1) Chronic constipation: Status: Chronic (2) Bloating: Status: Acute (3) Abdominal pain: Status: Acute (4) Family history of colon cancer: Status: Acute Comment: Mom at 48y/o Medications: New sod sulf-pot chloride-mag sulf 1.479-0.188- 0.225 gram (Sutab) Take orally take as directed for split dose bowel prep. Do not follow instructions on box. 28 tabs 0RF Plan 54-year-old female with a history of chronic constipation, presenting with continued symptoms of constipation and abdominal bloating. The patient reports significant interference with her daily routine due to the persistent symptoms. Despite pharmacologic and lifestyle interventions, the effectiveness remains suboptimal. Given her family history of colon cancer and symptom progression, revisiting prior diagnostics such as colonoscopy and Sitz marker study is prudent to evaluate for underlying gastrointestinal motility issues. Differential diagnosis considerations include idiopathic constipation, colonic inertia, or an underlying motility disorder. Patient Instructions: Colonoscopy 2 day SuTab (1 sample provided) Trulance once daily, samples provided - Do not start Trulance until after the Sitz marker study. - Maintain your current hydration and dietary intake. - Report any worsening symptoms or new symptoms such as blood in stool, significant abdominal pain, or changes in bowel habits. Coding Level of Care Code Attention Rachel Diagnoses Chronic constipation K59.09 Bloating R14.0 Abdominal pain R10.9 Family history of colon cancer Z80.0 Comment New Level 4 and [address] Clinical Quality Measures Smoking Screening Smoking Status: Never smoker 07/06/25 1050 <Electronically signed by Rossi LAWS> Date _ Rossi LAWS Cosigner Signature: Date (if applicable) CC: ~ [facility] Work Phone: Reason for referral (narrative)No reason for referral information availableWMiami [facility] Work Phone: Summary Purpose Family History No Family History Records Found Relationship Condition Age at Onset Recorded Date/T carine mother Malignant neoplasm of colon Unknown father Diabetes mellitus Unknown Relationship Condition Age at Onset Recorded Date/T carine Not Specified Anxiety Unknown Arthritis Unknown Depression Unknown Kidney disorder Unknown Cerebrovascular accident (CVA) Unknown mother Malignant neoplasm of colon Unknown father Diabetes mellitus Unknown Family Member Condition Father Stroke/TIA Father Kidney disease Father High blood pressure Father Diabetes - insulin d ependent Father Alive Mother Cancer Mother Advance Directives No Advanced Directives Records Found Advance Directive Response Recorded Date/ Time Advance Directives No February 20, 2016 9:11am Living Will No March 15, 2022 8 :53am Power of Firebreak Cutter No March 15, 2022 8:53am Advance Directive Response Recorded Date/ Time Name of Medical Power of Firebreak Cutter Charmaine Shay (sister) June 16, 2022 11:50am Advance Directives No February 20, 2016 9:11am Living Will Yes June 16 11:50am Power of Firebreak Cutter Yes June 16 11:50am Advance Directive Response Recorded Date/ Time Name of Medical Power of Firebreak Cutter Charmaine Shay June 16, 2022 12:18pm Advance Directives No February 20, 2016 9:11am Living Will Yes June 16 12:18pm Power of Firebreak Cutter Yes June 16 12:18pm Advance Directive Response Recorded Date/ Time Living Will No January 03, 2025 4:46pm Power of Firebreak Cutter No January 03 4:46pm Living Will Yes October 25 12:38pm Power of Firebreak Cutter Yes October 25 12:38pm Name of Medical Power of Firebreak Cutter DAUGHTER - ALEKSEY GOODE October 25, 2024 12:38pm Advance Directives No February 20, 2016 9:11am Advance Directive Response Recorded Date/ Time Advance Directives No February 20, 2016 9:11am Chief Complaint and Reason for Visit Chief Complaint abdominal pain Chief Complaint abdominal pain LEFT DISTAL URETERAL CALCULUS, INTRACTABLE PAIN Reason for Visit Calculus of distal l eft ureter Intractable pain Recurrent nephrolithiasis Chief Complaint abdominal pain KIDNEY STONE Reason for Visit Calculus of distal l eft ureter Intractable pain Recurrent nephrolithiasis Chief Complaint Admit Date Endoscopic Plantar Fasciotomy of the lef t foot October 28, 2024 8:43am flank pain January 03, 2025 4:1 3pm Reason for Visit Admit Date Plantar fascial fibromatosis October 8:43am Chief Complaint Admit Date Pre-Colonoscopy Screening/Fam Hx Colon C A July 06, 2025 9:55am Reason for Visit Admit Date Abdominal pain July 06, 2025 9:55am Bloating July 06, 2025 9:55am Family history of colon cancer July 06, 2025 9:55am Chronic constipation July 06 9:55am Additional Source Comments INFORMATION SOURCE (unrecogn ized section and content) DATE CREATED AUTHOR 10/31/2021 [facility] DATE CREATED AUTHOR AUTHOR'S ORGANIZ ATION 01/09/2022 [facility] DATE CREATED AUTHOR AUTHOR'S ORGANIZ ATION 06/24/2024 [facility] ([place] DATE CREATED AUTHOR AUTHOR'S ORGANIZ ATION 06/11/2025 [facility] DATE CREATED AUTHOR AUTHOR'S ORGANIZ ATION 08/02/2025 [facility] DATE CREATED AUTHOR AUTHOR'S ORGANIZ ATION 08/09/2025 [facility] Goals (unrecognized section and content) Goals may be documented in a n alternate sectionGoals may be documented in an alternate sectionGoals may be documented in an alternate sectionGoals may be documented in an alternate section No data available for this section No data available for this section No data available for this section No data available for this section No data available for this section No data available for this section No data available for this section No data available for this section No data available for this section No data available for this section No data available for this section No data available for this section No data available for this section No data available for this section No data available for this section No data available for this section No data available for this section No data available for this section No data available for this section No data available for this sectionGoals may be documented in an alternate section No Information Available No data available for this section No data available for this section No data available for this section Care Team (unrecognized sect ion and content) Care Team Personnel Name: DOV MEADE DO Position: P4 Physician - Primary Care Member Role: Primary Care Physician Address: Address: [address] [place] [address] [facility] [place], [place] [address] Care Team Related Persons Name: ALEKSEY GOODE Address: Home [address] [place] [id number] Address: Temporary [address] [place] [id number] Name: HOLLIE HUTSON Patient Care team informatio n (unrecognized section and content) Team Status: Active Member Role Status Dates Dr. Dov Meade DO Primary Care Provider Active Team Status: Inactive Member Role Status Dates Dr. Dov Meade DO Primary Care Provider Active Start: October 28, 2024 End: October 28, 2024 Dr. Christo Prasad , DPM Attending Provider Active Start: October 28, 2024 End: October 28, 2024 Dr. Christo Prasad DPM Referring Provider Active Start: October 28, 2024 End: October 28, 2024 Team Status: Inactive Member Role Status Dates Dr. Dov Meade DO Primary Care Provider Active Start: January 03, 2025 End: January 03, 2025 Dr. Salinas Mcintyre MD Emergency Provider Active Start: January 03, 2025 End: January 03, 2025 Team Status: Active Member Role/Relationship Status Dates Dr. Dov Meade DO Primary care physician Active Team Status: Inactive Member Role/Relationship Status Dates Dr. Dov Meade DO Primary care physician Active Start: July 06, 2025 End: July 06, 2025 Dr. Dov Meade DO Referring Provider Active Start: July 06, 2025 End: July 06, 2025 VETO Villalta Attending physician Active Start: July 06, 2025 End: July 06, 2025 REASON FOR VISIT (unrecogniz ed section and content) neck pain, Follow-up by eric cardenas FOR RECORDS PERTAINING TO PATIENTS WHO ARE OR HAVE BEEN ENROLLED IN A CHEMICAL DEPENDENCY/SUBSTANCEABUSE PROGRAM, SOME INFORMATION MAY BE OMITTED. This clinical summary was aggregated from multiple sources. Caution should be exercised in using it in the provision of clinical care. This summary normalizes information from multiple sources, and as a consequence, information in this document may materially change the coding, format and clinical context of patient data. In addition, data may be omitted in some cases. CLINICAL DECISIONS SHOULD BE BASED ON THE PRIMARY CLINICAL RECORDS. [facility] [employer] provides no warranty or guarantee of the accuracy or completeness of information in this document.
[2025-08-10] MEDS: Lactated Ringers 1,000 ML 15 ML IV (07:45)
--- NOTE | 2025-08-10 08:07 | PCM.PRE.AN2 ---
ASA Classification* ASA Classification ASA Classification: 2 Assessment & Plan Anesthesia* Anesthesia Assessment Anesthesia Assessment: Discussed sedation and/or anesthesia options, risks, benefits, and alternatives with patient/parents/legal guardian/POA. Questions invited. The patient/parents/legal guardian/POA seems to understand and agrees to proceed with anesthesia plan. Reviewed the physical assessment, medical history, allergy history and patient home medications list prior to surgery/procedure/anesthetic and documented any changes. Performed airway and anesthesia risk assessments. Anesthesia Type Anesthesia Type: MAC History Source History Obtained from:: Patient and Chart Anesthesia Focused Assessment* Temperature: 98.3 F Pulse Rate: 96 Blood Pressure: 143/85 Respiratory Rate: 16 Pulse Ox: 97 Oxygen Delivery Method: Room Air Airway Assessment Mouth opens: >3 cm Mallampati Score: II Teeth Condition: Intact and Caps/Crowns Neck Range of motion (ROM): Full ROM Labs Anesthesia Preop lab: CBC WBC, (4.4-11.0) 8.2 K/mm3 01/03/25, 16:40 RBC, (4.2-5.4) 4.14 M/mm3 L 01/03/25, 16:40 Hgb, (12.0-15.0) 12.6 g/dL 01/03/25, 16:40 Hct, (37-47) 37.6 % 01/03/25, 16:40 Plt Count, (150-450) 320 K/mm3 01/03/25, 16:40 CHEMISTRY Potassium, (3.3-5.1) 3.7 mmol/L 01/03/25, 16:40 Sodium, (133-145) 137 mmol/L 01/03/25, 16:40 BUN, (4-19) 14 mg/dL 01/03/25, 16:40 Creatinine, (0.70-1.20) 0.95 mg/dL 01/03/25, 16:40 Glucose, (70-99) 113 mg/dL H 01/03/25, 16:40 POC Glucose, (74-106) 121 mg/dL H 10/28/24, 09:01 TSH, (0.358-3.74) 0.77 uIU/mL 07/02/17, 12:38 COAG HCG, Quant, (<9 non-preg) < 1 mIU/mL 07/02/17, 12:38 Urine Test Negative Negative 10/12/21, 13:50 Pre-Assessment Diagnosis/Proposed Procedure Planned Operative Procedure(s): COLONOSCOPY Anesthesia History Anesthesia History - pusher runner: Anesthesia History - pusher runner Hx Hospitalization Yes: 02/2024 BACK SURGERY 08/08/25 10:00 Any Problems With Anesthesia Yes: PONV 08/08/25 10:00 Cholinesterase deficiency No 08/08/25 10:00 You/Your Family Experience No 08/08/25 10:00 fever (hyperthermia) with Relationship Recent Exposure to Contagious No 08/10/25 07:40 Disease Does patient have nerve No 08/08/25 10:00 stimulator Patient instructed to have device shut off --Does patient have Pacemaker or ICD? When Was Last Pacemaker Check QUESTION #4 FULL TEXT: You/Your Family Experience fever (hyperthermia) with Anesthesia Last Oral Intake Last Oral intake: Last Oral Intake NPO since 22:00 08/10/25 07:40 Meds taken in AM with sips of water? Meds patient instructed to take am of surgery PONV PONV - pusher runner: PONV - pusher runner Female Yes 08/08/25 10:00 HX of Motion Sickness No 08/08/25 10:00 HX of N/V After Surgery No 08/08/25 10:00 Non-Smoker Yes 08/08/25 10:00 Duration of Surgery greater No 08/08/25 10:00 than 60 minutes Number of Risk Factors 2 08/08/25 10:00 PONV Score Moderate Risk 08/08/25 10:00 Height & Weight Height & Weight: Anesthesia: Height & Weight Height 5 ft 4 in 08/10/25 07:40 Weight: 89.6 kg 08/10/25 07:40 Body Mass Index (BMI) 33.9 08/10/25 07:40 Respiratory Assessment Respiratory Assessment - pusher runner: Respiratory Tract Infection Hx - pusher runner Hx Respiratory Tract Infection No 08/08/25 10:00 STOP Sleep Apnea STOP Sleep Apnea - pusher runner: STOP Sleep Apnea - pusher runner Hx Hypertension No 08/08/25 10:00 Hx Sleep Apnea No 08/08/25 10:00 CPAP No 08/08/25 10:00 BIPAP No 08/08/25 10:00 Do you snore loudly (louder No 08/08/25 10:00 than talking or can be heard Do you often feel tired/ No 08/08/25 10:00 fatigued/ sleepy during daytime? Has anyone observed you stop No 08/08/25 10:00 breathing during sleep? STOP Results Negative 08/08/25 10:00 QUESTION #5 FULL TEXT : Do you snore loudly (louder than talking or can be heard through closed doors)? Tobacco Use History Tobacco Use History - pusher runner: Tobacco Use History - pusher runner Tobacco Use Non-smoker 03/14/21 11:54 Smoking Status Never smoker 08/08/25 10:00 Hx Tobacco Use No 08/08/25 10:00 Years Smoking Packs Smoked per Day Smoking Cessation Date was within the last 15 years Hx Smoking Cessation Date Hx Smoking Cessation Counseling Hematologic Medial History Hematologic Hx - pusher runner: Hematologic Medical Hx - hog pusher Hx of Blood Transfusion No 08/08/25 10:00 Hx of Transfusion in last 3 No 08/08/25 10:00 Months Date of Last Transfusion (if within last 3 months) Ever experience any problems No 08/08/25 10:00 with transfusion(s)? Specify any problems Hx of Preganancy in last 3 No 08/08/25 10:00 Months Nurse Filling Out Transfusion VCHRISTIN 08/08/25 10:00 & Questions: Date: 08/08/25 08/08/25 10:00 Time: 10:02 08/08/25 10:00 Patient unable to answer at this time (ie. confused, unrespo /Reproduction History /Reproductive History - pusher runner: /Reproductive Hx- pusher runner Hx Now No 08/08/25 10:00 Gestational Age (in weeks): EDC: Hx Hx Para Hx Section SAB No 08/08/25 10:00 Active Medications Active Medications: Current Medications Generic Name Dose Route Start Last Admin Trade Name Freq PRN Reason Stop Dose Admin Lactated Ringer's 1,000 mls @ 15 mls/hr 08/10/25 07:30 08/10/25 07:45 IV 15 mls/hr .Q48H QI Administration PFSH Medical History Kidney disease UTI (urinary tract infection) High cholesterol History of IBS GERD (gastroesophageal reflux disease) Depression Fatigue IBS (irritable bowel syndrome) Kidney stones Insomnia Anxiety Ovarian cyst Tubal Personal history of kidney stones Hx of renal impairment Home Medications ?Medication ?Instructions ?Recorded ?Last Taken ?Type trazodone 100 mg tablet 200 mg PO QHS 10/12/21 08/09/25 History nitrofurantoin macrocrystal 100 mg 100 mg PO QHS Check with primary 06/16/22 08/09/25 History capsule doctor estradiol 1 mg tablet 1 mg PO DAILY 10/25/24 08/09/25 History medroxyprogesterone 5 mg tablet 5 mg PO DAILY 10/25/24 08/09/25 History omeprazole 20 mg capsule,delayed 20 mg PO DAILY 10/25/24 08/09/25 History release ondansetron 4 mg disintegrating 4 mg PO Q8H PRN nausea and 01/03/25 Unknown Rx tablet vomiting #20 tabs duloxetine 60 mg capsule,delayed 60 mg PO DAILY 08/08/25 08/09/25 History release sodium sul 1.479 gram-potas ch See Rx Instructions PO .COMPLEX 08/08/25 Unknown Rx 0.188 gram-magnes sul 0.225 gram #28 tabs tablet (Sutab) Allergy/AdvReac Type Severity Reaction Status Date / Time meperidine HCl (From Demerol) Allergy Other Verified 08/10/25 07:39 morphine Allergy Rash Verified 08/10/25 07:39 Family History Mother Colon cancer Father Diabetes Other Anxiety Arthritis CVA (cerebral vascular accident) Depression Kidney disease Surgical History Hx of fasciotomy Hx of repair of right rotator cuff History of spinal fusion (~02/2024) History of elbow surgery History of lithotripsy H/O ovarian cystectomy H/O dilation and curettage Hx of tubal ligation History of Social [facility] number [facility] children: 2 current occupational status: employed current occupation: [employer] Smoking Status: Never smoker alcohol intake: current details: rarely substance use type: does not use frequency: 3-4 times per week Review of Systems (Anesthesia) ROS Narrative System reviewed and no additional complaints, except as documented.
--- NOTE | 2025-08-10 08:15 | COLBX_PTH ---
PATIENT: MARLENA MARRERO LOC: EN U#:[id number] AGE/SX: 54/F ROOM: RE08/10/[address]: Dr. Daniel Mckee DO : 1970 BED: DIS: 08/10/2025 SPEC #: [id number] RECD: 08/10/25 09:56 STATUS: SANTY REMohan #: [id number] PILO: 08/10/25 08:[address]: Daniel Mckee DEPT: SURGICAL PATHOLOGY RECD BY: Aleksey Vega ENTERED: 08/10/25 11:04 SP TYPE: COLON BX TANA DR: Dr. Dov Meade DO Tissues: A - Descending colon B - Ascending colon C - SPLENIC FLEXURE Procedures: Surgery Specimen Level IV HEADER OPERATION: Colonoscopy, biopsy, polypectomy, hemostasis PRE-OP DIAGNOSIS: Chronic constipation, bloating, abdominal pain, family history of colon cancer TISSUE SUBMITTED: A- Descending polyp biopsy, B- Ascending polyp biopsy, C- Splenic flexure polyp biopsy MICROSCOPIC DIAGNOSIS A. Descending colon, polyp, biopsy: - Tubular adenoma, small mucosal lymphoid aggregate. B. Ascending colon, polyp, biopsy: - Tubular adenoma. C. Splenic flexure, polyp, biopsy: - Tubular adenoma. MICROSCOPIC DESCRIPTION Slides are reviewed. GROSS DESCRIPTION A. Received in fixative is one container labeled with the patient's name and designated Descending polyp biopsy. The specimen consists of one irregular fragment of campo tissue that measures 0.3 cm. The specimen is totally submitted in one cassette. B. Received in fixative is one container labeled with the patient's name and designated Ascending polyp biopsy. The specimen consists of two irregular fragments of campo tissue that measure 0.4 and 0.6 cm. The specimen is totally submitted in one cassette. C. Received in fixative is one container labeled with the patient's name and designated Splenic flexure polyp biopsy. The specimen consists of one irregular fragment of campo tissue that measures 0.4 cm. The specimen is totally submitted in one cassette. TN 08/10/2025 CPT:78124b0
--- NOTE | 2025-08-10 08:36 | PCM.HP.STD ---
HPI - General General Date of Admission: 08/10/25 Date of Service: 08/10/25 Chief Complaint: Abdominal pain and family history of colon cancer HPI Narrative MARLENA MARRERO, is a 54 F who presents Chief Complaint: stomach problems Details: 54-year-old female presents for initial consultation with H significant for IBS-C, prediabetes, GERD on PPI, presents for consultation post admission for complaints of right sided abdominal pain. She was seen by gastroenterology during her March admission at which point she had been experiencing severe onset of acute abdominal pain with no known triggers. She described this pain as intense, sharp, and stabbing affecting the RUQ and RLQ. She reports a history of moderate to severe constipation going up to 7 to 10 days without a bowel movement if not longer. She had reported failing multiple medical therapies but could only recall MiraLAX and Linzess with certainty. She also had reported previous bidirectional endoscopies were unremarkable. She was also seen by surgery during admission. CT scan of her abdomen and pelvis was completed that showed no acute findings with bilateral nonobstructive kidney stones. She was found to have a stable hepatic lobe cyst with unremarkable gallbladder, spleen, pancreas, and adrenal glands. She then had an ultrasound of her abdomen that showed no gallstones with a common bile duct slightly dilated at 8 mm, no findings of acute cholecystitis. She was found to have a normal white count of 5.9 with a stable hemoglobin. Total bilirubin and LFTs were all within normal limits. No surgical interventions were planned. CT abdomen and pelvis with oral contrast only completed 04/17/2025 suggested mild wall thickening of the right ureter; otherwise unremarkable. Abdominal ultrasound completed April 17, 2025 revealed a mildly dilated CBD of 8 mm and gallbladder wall in the upper limits of normal. No gallstones. CBC: 04/19/2025 WNL BMP 04/19/2025 unremarkable - Mom passed of colon CA, diagnosed at 48y/o - reports her last colonoscopy was 5 years ago - c/o abdominal pain and bloating constant, worse after meals - reports she can go >3 weeks without a BM - reports she only has a BM when using a fleets enema - reports failing Linzess, Miralax, Amitiza - gleason snot recall ever trialing Trulance or Ibsrela - Dulcolax stool softener every evening - constipation is getting worse - she is using fleets enemas once a week, every 3-4 days - stools are hard - reports her abdominal pain is worse after a BM with occasional nausea - denies any emesis - reports her last colonoscopy was in [place] - denies any h/o colon polyps - denies any weight loss - denies any bleeding - Sitz Marker 15 years ago showed slow transit - record review as noted above including recent admission The patient is a 54-year-old female presenting with chronic constipation and abdominal bloating. The patient's symptoms initiated approximately 21 years ago, coinciding with the of her daughter. She reports a history of constipation characterized by infrequent bowel movements, sometimes extending to three and a half weeks without relief unless facilitated by a fleet enema, which she resorts to using approximately once a week. The patient has trialed various modifications to her diet, including the elimination of gluten and dairy, with no symptom relief. Dietary fiber intake is high, consisting of fruits, vegetables, and fiber cereal. She maintains adequate hydration by consuming mostly water. Despite these efforts, the abdominal bloating persists, described as causing significant discomfort and pain without needing food intake to trigger symptoms. Symptomatically, the patient experiences severe bloating and abdominal discomfort services in the absence of dietary triggers. Medical management attempts have included various pharmacotherapy trials such as Linzess, MiraLAXUS, and Amitiza, none of which have successfully ameliorated the constipation. She has also utilized biit-lhw-ejoigoo options, such as Dulcolax, without success. Previous interventions have emphasized gastroenterological exploration, yet symptom management has proven elusive. The patient undergoes routine care for additional medical issues, including recurring kidney stones requiring urological interventions. Family medical history is significant for the of her mother from colon cancer at the age of 54. The patient herself has undergone multiple colonoscopies, the last being approximately five years prior, with no history of colon polyps. [facility] Medical History Kidney disease UTI (urinary tract infection) High cholesterol History of IBS GERD (gastroesophageal reflux disease) Depression Fatigue IBS (irritable bowel syndrome) Kidney stones Insomnia Anxiety Ovarian cyst Tubal Personal history of kidney stones Hx of renal impairment Home Medications ?Medication ?Instructions ?Recorded ?Last Taken ?Type trazodone 100 mg tablet 200 mg PO QHS 10/12/21 08/09/25 History nitrofurantoin macrocrystal 100 mg 100 mg PO QHS Check with primary 06/16/22 08/09/25 History capsule doctor estradiol 1 mg tablet 1 mg PO DAILY 10/25/24 08/09/25 History medroxyprogesterone 5 mg tablet 5 mg PO DAILY 10/25/24 08/09/25 History omeprazole 20 mg capsule,delayed 20 mg PO DAILY 10/25/24 08/09/25 History release ondansetron 4 mg disintegrating 4 mg PO Q8H PRN nausea and 01/03/25 Unknown Rx tablet vomiting #20 tabs duloxetine 60 mg capsule,delayed 60 mg PO DAILY 08/08/25 08/09/25 History release sodium sul 1.479 gram-potas ch See Rx Instructions PO .COMPLEX 08/08/25 Unknown Rx 0.188 gram-magnes sul 0.225 gram #28 tabs tablet (Sutab) Allergy/AdvReac Type Severity Reaction Status Date / Time meperidine HCl (From Demerol) Allergy Other Verified 08/10/25 07:39 morphine Allergy Rash Verified 08/10/25 07:39 Family History Mother Colon cancer Father Diabetes Other Anxiety Arthritis CVA (cerebral vascular accident) Depression Kidney disease Surgical History Hx of fasciotomy Hx of repair of right rotator cuff History of spinal fusion (~02/2024) History of elbow surgery History of lithotripsy H/O ovarian cystectomy H/O dilation and curettage Hx of tubal ligation History of Social History [facility] number of children: 2 current occupational status: employed current occupation: [employer] Smoking Status: Never smoker alcohol intake: current details: rarely substance use type: does not use frequency: 3-4 times per week ROS Constitutional Constitutional: Denies fatigue, fever(s), poor appetite, weight gain or weight loss Gastrointestinal Gastrointestinal: Denies belching, bloating, change in bowel habits, change in stool character, chewing difficulty, coffee ground emesis, constipation, cramping, diarrhea, dyspepsia, dysphagia, early satiety, excessive flatus, fecal incontinence, heartburn, hematemesis, hematochezia, hemorrhoids, loose stools, melena, nausea, odynophagia, rectal bleeding, tenesmus, vomiting or weight changes Vital Signs Vital Signs Vital Signs: 08/10/25 07:40 08/10/25 07:40 08/10/25 08:09 Temperature 98.3 F 98.3 F Temperature Source Temporal Pulse Rate 96 96 Respiratory Rate 16 16 Respiratory Pattern Normal Blood Pressure 143/85 H 143/85 H Blood Pressure Mean 104 Blood Pressure Source Monitor Blood Pressure Position Semi-Fowlers Blood Pressure Location Right Arm Pulse Ox 97 97 Oxygen Delivery Method Room Air Room Air Weight Weight: 197 lb 8.547 oz Body Mass Index (BMI) 33.9 Physical Exam Const alert, oriented x3, no apparent distress and healthy appearing General Appearance: cooperative GI normal to inspection, nondistended, normoactive bowel sounds, soft to palpation, non-tender and non-distended Percussion: normal to percussion Rectal Exam: deferred Assessment & Plan Assessment/Plan (1) Family history of colon cancer: (2) Abdominal pain: (3) Bloating: (4) Chronic constipation: PLAN: Assessment and Plan Assessment and Plan (1) Chronic constipation: Status: Chronic (2) Bloating: Status: Acute (3) Abdominal pain: Status: Acute (4) Family history of colon cancer: Status: Acute Comment: Mom at 48y/o Medications: New sod sulf-pot chloride-mag sulf 1.479-0.188- 0.225 gram (Sutab) Take orally take as directed for split dose bowel prep. Do not follow instructions on box. 28 tabs 0RF Plan 54-year-old female with a history of chronic constipation, presenting with continued symptoms of constipation and abdominal bloating. The patient reports significant interference with her daily routine due to the persistent symptoms. Despite pharmacologic and lifestyle interventions, the effectiveness remains suboptimal. Given her family history of colon cancer and symptom progression, revisiting prior diagnostics such as colonoscopy and Sitz marker study is prudent to evaluate for underlying gastrointestinal motility issues. Differential diagnosis considerations include idiopathic constipation, colonic inertia, or an underlying motility disorder. Patient Instructions: Colonoscopy 2 day SuTab (1 sample provided) Trulance once daily, samples provided - Do not start Trulance until after the Sitz marker study. - Maintain your current hydration and dietary intake. - Report any worsening symptoms or new symptoms such as blood in stool, significant abdominal pain, or changes in bowel habits. ]
--- NOTE | 2025-08-10 09:44 | PCM.POST.ANE ---
Anesthesia: Postop Eval I Current Vital Signs Temperature: 97.7 F Pulse Rate: 89 Blood Pressure: 104/72 Respiratory Rate: 16 Pulse Ox: 100 Oxygen Delivery Method: Room Air Assessment Airway patent: Yes Spontaneous unlabored respirations: Yes Mental status: Awake and Calm nausea: No Vomiting: No Anesthesia Complication: No Fluid Hydration Crystalloid volume administer (ml): 900 Total IV fluid infused: 900 Progress Note Anesthesia document: Postop Eval 1 completed: Yes
--- NOTE | 2025-08-10 09:47 | OP.PROVAT_ITS ---
08/11/2025 Dov Meade Do Re : Colonoscopy procedure for Ashley Goode Dear Dr. Meade This procedure was performed on July. My impressions and recommendations are as follows: Impressions : - Preparation of the colon was fair. - Diverticulosis in the recto-sigmoid colon, in the sigmoid colon and in the descending colon. - Four 10 mm polyps in the descending colon, at the hepatic flexure and in the ascending colon, removed with a jumbo cold forceps. Resected and retrieved. - One 7 mm polyp in the cecum, removed with a hot snare. Resected and retrieved. - Stool in the rectum, in the recto-sigmoid colon, in the sigmoid colon and in the cecum. Recommendations : - Discharge patient to home. - Resume previous diet. - Continue present medications. - Await pathology results. - Repeat colonoscopy in 3 years for surveillance. My findings are described in the full procedure note, which is enclosed. If I can be of further assistance, please feel free to contact me at . Sincerely, Daniel Mckee DO 08/10/2025 9:46:47 AM This report has been signed electronically.
--- NOTE | 2025-08-10 09:47 | OP.COLON_ITS ---
Patient Name: Ashley Goode Procedure Date: 08/10/2025 8:44 AM Date of : 1970 Age: 54 Procedure: Colonoscopy Indications: Screening in patient at increased risk: Family history of 1st-degree relative with colorectal cancer before age 60 years, High risk colon cancer surveillance: Personal history of colonic polyps Providers: Daniel Mckee DO Referring MD: Dov Meade Do Medicines: Monitored Anesthesia Care Patient Profile: This is a 54 year old female. Refer to note in patient chart for documentation of history and physical. Last Colonoscopy: several years ago. Complications: No immediate complications. Procedure: Pre-Anesthesia Assessment: - Prior to the procedure, a History and Physical was performed, and patient medications and allergies were reviewed. The patient is competent. The risks and benefits of the procedure and the sedation options and risks were discussed with the patient. All questions were answered and informed consent was obtained. Patient identification and proposed procedure were verified by the physician in the pre-procedure area. Mental Status Examination: alert and oriented. Airway Examination: normal oropharyngeal airway and neck mobility. Respiratory Examination: clear to auscultation. CV Examination: normal. Prophylactic Antibiotics: The patient does not require prophylactic antibiotics. Prior Anticoagulants: The patient has taken no anticoagulant or antiplatelet agents. ASA Grade Assessment: II - A patient with mild systemic disease. After reviewing the risks and benefits, the patient was deemed in satisfactory condition to undergo the procedure. The anesthesia plan was to use monitored anesthesia care (MAC). Immediately prior to administration of medications, the patient was re-assessed for adequacy to receive sedatives. The heart rate, respiratory rate, oxygen saturations, blood pressure, adequacy of pulmonary ventilation, and response to care were monitored throughout the procedure. The physical status of the patient was re-assessed after the procedure. After I obtained informed consent, the scope was passed under direct vision. Throughout the procedure, the patient's blood pressure, pulse, and oxygen saturations were monitored continuously. The Colonoscope was introduced through the anus and advanced to the cecum, identified by appendiceal orifice and ileocecal valve. The colonoscopy was performed without difficulty. The patient tolerated the procedure well. The quality of the bowel preparation was fair. Scope In: 9:03:57 AM Scope Withdrawal Time 0 hours 19 minutes 0 seconds Scope Out: 9:34:23 AM Total Procedure Duration Time 0 hours 30 minutes 26 seconds Findings: A few small and large-mouthed diverticula were found in the recto-sigmoid colon, sigmoid colon and descending colon. Four sessile polyps were found in the descending colon, hepatic flexure and ascending colon. The polyps were 10 mm in size. These polyps were removed with a jumbo cold forceps. Resection and retrieval were complete. Verification of patient identification for the specimen was done. Estimated blood loss was minimal. A 7 mm polyp was found in the cecum. The polyp was sessile. The polyp was removed with a hot snare. Resection and retrieval were complete. Verification of patient identification for the specimen was done. Estimated blood loss was minimal. Stool was found in the rectum, in the recto-sigmoid colon, in the sigmoid colon and in the cecum. Lavage of the area was performed using copious amounts of sterile water, resulting in clearance with fair visualization. Impression: - Preparation of the colon was fair. - Diverticulosis in the recto-sigmoid colon, in the sigmoid colon and in the descending colon. - Four 10 mm polyps in the descending colon, at the hepatic flexure and in the ascending colon, removed with a jumbo cold forceps. Resected and retrieved. - One 7 mm polyp in the cecum, removed with a hot snare. Resected and retrieved. - Stool in the rectum, in the recto-sigmoid colon, in the sigmoid colon and in the cecum. Recommendation: - Discharge patient to home. - Resume previous diet. - Continue present medications. - Await pathology results. - Repeat colonoscopy in 3 years for surveillance. Procedure Code(s): --- Professional --- 75016, Colonoscopy, flexible; with removal of tumor(s), polyp(s), or other lesion(s) by snare technique 36662, 59, Colonoscopy, flexible; with biopsy, single or multiple CPT copyright 2021 [employer]. All rights reserved. The codes documented in this report are preliminary and upon line cook review may be revised to meet current compliance requirements. Daniel Mckee DO 08/10/2025 9:46:47 AM This report has been signed electronically. Number of Addenda: 1 Note Initiated On: 08/10/2025 8:44 AM Addendum Number: 1 Addendum Date: 08/11/2025 1:41:13 PM A Optimus Endo Clip was placed on the polypectomy site in the cecum. Daniel Mckee DO 08/11/2025 1:41:40 PM This report has been signed electronically.
--- NOTE | 2025-08-10 14:19 | PCM.POSTANE2 ---
Anesthesia Postop Eval I Sum Postop Eval Completion status Anesthesia document: Postop Eval 1 completed: Yes Anesthesia Postop Eval I Summary Anesthesia Postop Eval I Summary: Anesthesia Postop Eval I: Assessment Summary Airway patent Yes 08/10/25 09:44 [email or web address] Spontaneous unlabored Yes 08/10/25 09:44 [email or web address] respirations Mental status Awake,Calm 08/10/25 09:44 [email or web address] nausea No 08/10/25 09:44 [email or web address] Vomiting No 08/10/25 09:44 [email or web address] Anesthesia Postop Eval I: Fluid Summary Crystalloid volume administer 900 08/10/25 09:44 [email or web address] (ml) Colloids volume administered ( ml) Blood Product volume administered (ml) Total IV fluid infused 900 08/10/25 09:44 [email or web address] Anesthesia Postop Eval I: Summary Notes Anesthesia Complication No 08/10/25 09:44 [email or web address] Anesthesia Complication Comment: Post-operative progress note Anesthesia: Postop Eval II Evaluation Mental status: Awake and Calm Pain Level: 1 nausea: No Vomiting: No Complications Anesthesia Complication: No
== END 2025-08-10 10:28 | disposition home or self-care (01) ==
LOC: EN 07:08 → AC 07:09
PROVIDERS: Visit Provider Internal Medicine Gastroenterology
PROC: 0DJD8ZZ Inspection of Lower Intestinal Tract, Via Natural or Artificial Opening Endoscopic (ICD-10-PCS; CPT 45378; principal; 2025-08-10 08:10)
DX: Z12.11 Encounter for screening for malignant neoplasm of colon (principal); K63.5 Polyp of colon; K57.30 Diverticulosis of large intestine without perforation or abscess without bleeding; E78.00 Pure hypercholesterolemia, unspecified; Z80.0 Family history of malignant neoplasm of digestive organs; R14.0 Abdominal distension (gaseous); K21.9 Gastro-esophageal reflux disease without esophagitis; Z79.899 Other long term (current) drug therapy; F41.9 Anxiety disorder, unspecified; F32.A Depression, unspecified; Z90.6 Acquired absence of other parts of urinary tract; Z98.51 Tubal ligation status; R10.31 Right lower quadrant pain; K59.09 Other constipation; D12.0 Benign neoplasm of cecum
CPT/HCPCS: 45380; 45385; 88305; J2405